=== PATIENT | female | born 1940 | race Caucasian/White ===

== ENCOUNTER 2016-09-17 22:59 | Observation (INO) | payer OTHER ==
[~2016-09-17] VITALS: Ht 170.2 cm; Wt 88.2 kg
[~2016-09-17 22:59] MED LIST: BIOT1TAB2 PO; CALC600T9 PO; ESTCR PV; LEVO100T7 PO; MULTTAB58 PO; POLYSOL8 OPB; RIVA1TAB4 PO; ROSU5TAB PO; SERT-234 PO; SOTA80TA PO; ZNTT/150 PO
--- NOTE | 2016-09-17 23:36 | EMERGENCY ROOM VISIT NOTE ---
History Report prepared by Cecily: Emily Stephens Under the Supervision of: Dr. Twan Kowalski M.D. First contact with patient: 23:18 Chief Complaint: IRREGULAR HEARTBEAT Stated Complaint: IRREGULAR HEART BEAT- AFIB History of Present Illness The patient is a 75 year old female who presents to the Emergency Room with complaints of a persistent irregular heartbeat. She reports she took her medication for atrial fibrillation around 2200 this evening. Approximately 10 minutes later, while watching TV, she felt her heart "fluttering" and states it feels similar to previous episodes of atrial fibrillation, which she has a history of. The patient reports she has needed chemical and electric cardioversion in the past. The last intervention was approximately 1 year ago, here at [facility]. She normally follows with Dr. Gonzalez of [facility]. The patient admits she has had a stressful past few weeks with caring for her developmentally impaired adult daughter and a "very busy day" today. She denies any recent ETOH use. She does admit to some current shakiness and nausea. She denies any chest pain or shortness of breath. Source of History: patient Onset: 2200 last night Position: chest Timing: other (persistent) Modifying Factors (Worsening): other (recent stress) Associated Symptoms: + nausea, + weakness, No SOB, No chest pain Review of Systems See HPI for pertinent positives & negatives. A total of 10 systems reviewed and were otherwise negative. Past Medical & Surgical Medical Problems: (1) Bronchiectasis (2) GERD (gastroesophageal reflux disease) (3) HLD (hyperlipidemia) (4) Hypothyroidism (5) Osteoarthritis (6) Osteoporosis (7) Palpitations (8) Paroxysmal a-fib Surgical Problems: (1) H/O arthroscopic knee surgery (2) H/O partial thyroidectomy (3) History of appendectomy (4) History of sinus surgery (5) History of tonsillectomy (6) History of tubal ligation (7) Hx of cholecystectomy Family History Patient reports no known family medical history. Social History Smoking Status: Never Smoker Alcohol Use: occasionally Drug Use: none Marital Status: Housing Status: lives with family Occupation Status: retired Current/Historical Medications Scheduled Biotin (Biotin), 5 MG PO 3XWK Levothyroxine Sodium (Levothyroxine Sodium), 100 MCG PO DAILY Probiotic Product (Probiotic), 1 TAB PO DAILY Ranitidine (Zantac), 150 MG PO BID Rivaroxaban (Xarelto), 20 MG PO DAILY Rosuvastatin Calcium (Crestor), 5 MG PO 3XWK Sertraline (Zoloft), 100 MG PO DAILY Sotalol Hcl (Sotalol Hcl), 80 MG PO BID Allergies Coded Allergies: Iodinated Diagnostic Agents (Verified Allergy, Severe, ANAPHYLAXIS, 09/17/16 ) Erythromycin (Verified Allergy, Intermediate, RASH, 09/17/16) Penicillins (Verified Allergy, Intermediate, RASH, 09/17/16) FROM CHILDHOOD Simvastatin (Verified Allergy, Intermediate, RASH, 09/17/16) Nystatin (Verified Allergy, Mild, RASH, 09/17/16) Moxifloxacin (Verified Adverse Reaction, Intermediate, HALUCINATIONS, ) Uncoded Allergies: TABARES 2 INHIBITOR (Allergy, Mild, RASH, 05/11/16) Physical Exam Vital Signs Date Time Temp Pulse Resp B/P Pulse Ox O2 Delivery O2 Flow Rate FiO2 09/18/16 00:10 74 20 132/65 96 Room Air 09/17/16 23:42 Room Air 09/17/16 23:42 96 Room Air 09/17/16 23:38 6 Room Air 09/17/16 23:24 128 09/17/16 23:08 36.4 138 19 120/75 96 Room Air Physical Exam GENERAL: Patient is a healthy-appearing well-nourished 75 year old female. HEAD: Normocephalic atraumatic EYES: Ocular movements intact pupils equal and react to light OROPHARYNX mucous membranes are moist no exudates present no erythema or edema present NECK: Supple no nuchal rigidity CHEST: Good equal expansion LUNGS: Clear and equal to auscultation CARDIAC: Normal S1 and S2 ABDOMEN: Soft nontender no guarding BACK: No CVA tenderness EXTREMITIES: No pain upon palpation normal muscle strength in all groups no clubbing cyanosis or edema NEURO: Patient is following commands is answering questions appropriately. Alert and oriented x3 Cranial Nerves 2-12 grossly intact Medical Decision & Procedures ER Provider Diagnostic Interpretation: This X-Ray was reviewed and interpreted by myself as we do not have a radiologist on staff overnight. CHEST X-RAY, 1 VIEW There is no evidence of pneumonia, congestion or pneumothorax. Laboratory Results 09/17/16 23:25 Red Blood Count 4.61, Mean Corpuscular Volume 90.0, Mean Corpuscular Hemoglobin 29.7, Mean Corpuscular Hemoglobin Concent 33.0, Mean Platelet Volume 10.5, Neutrophils (%) (Auto) 58.4, Lymphocytes (%) (Auto) 28.0, Monocytes (%) (Auto) 10.9, Eosinophils (%) (Auto) 2.0, Basophils (%) (Auto) 0.5, Neutrophils # (Auto ) 3.82, Lymphocytes # (Auto) 1.83, Monocytes # (Auto) 0.71, Eosinophils # (Auto ) 0.13, Basophils # (Auto) 0.03 09/17/16 23:25 Test 09/17/16 23:25 White Blood Count 6.53 K/uL (4.8-10.8) Red Blood Count 4.61 M/uL (4.2-5.4) Hemoglobin 13.7 g/dL (12.0-16.0) Hematocrit 41.5 % (37-47) Mean Corpuscular Volume 90.0 fL (80-100) Mean Corpuscular Hemoglobin 29.7 pg (25-34) Mean Corpuscular Hemoglobin Concent 33.0 g/dl (32-36) Platelet Count 166 K/uL (130-400) Mean Platelet Volume 10.5 fL (7.4-10.4) Neutrophils (%) (Auto) 58.4 % Lymphocytes (%) (Auto) 28.0 % Monocytes (%) (Auto) 10.9 % Eosinophils (%) (Auto) 2.0 % Basophils (%) (Auto) 0.5 % Neutrophils # (Auto) 3.82 K/uL (1.4-6.5) Lymphocytes # (Auto) 1.83 K/uL (1.2-3.4) Monocytes # (Auto) 0.71 K/uL (0.11-0.59) Eosinophils # (Auto) 0.13 K/uL (0-0.5) Basophils # (Auto) 0.03 K/uL (0-0.2) RDW Standard Deviation 47.9 fL (36.4-46.3) RDW Coefficient of Variation 14.4 % (11.5-14.5) Immature Granulocyte % (Auto) 0.2 % Immature Granulocyte # (Auto) 0.01 K/uL (0.00-0.02) Prothrombin Time 13.9 SECONDS (9.0-12.0) Prothromb Time International Ratio 1.3 (0.9-1.1) Anion Gap 11.0 mmol/L (3-11) Est Creatinine Clear Calc Drug Dose 57.5 ml/min Estimated GFR () 81.8 Estimated GFR (Non- 70.5 BUN/Creatinine Ratio 21.9 (10-20) Calcium Level 9.4 mg/dl (8.5-10.1) Magnesium Level 2.1 mg/dl (1.8-2.4) Total Bilirubin 0.2 mg/dl (0.2-1) Direct Bilirubin < 0.1 mg/dl (0-0.2) Aspartate Amino Transf (AST/SGOT) 14 U/L (15-37) Alanine Aminotransferase (ALT/SGPT) 17 U/L (12-78) Alkaline Phosphatase 61 U/L (45-117) Total Creatine Kinase 100 U/L (26-192) Creatine Kinase MB 4.3 ng/ml (0.5-3.6) Creatine Kinase MB Ratio 4.3 (0-3.0) Troponin I < 0.015 ng/ml (0-0.045) Total Protein 7.2 gm/dl (6.4-8.2) Albumin 3.5 gm/dl (3.4-5.0) Lipase 224 U/L (73-393) Thyroid Stimulating Hormone (TSH) 4.040 uIu/ml (0.300-4.500) Labs reviewed by ED physician. Medications Administered Medications (Trade) Dose Ordered Sig/Amauri Route Start Time Stop Time Status Last Admin Dose Admin Diltiazem HCl 18 mg 18 mg NOW STAT IV 09/17/16 23:38 09/17/16 23:41 DC 09/17/16 23:51 18 MG Sodium Chloride (Nss 500ml) 500 ml @ 999 mls/hr Q31M STAT IV 09/17/16 23:38 09/18/16 00:08 DC 09/17/16 23:51 999 MLS/HR Potassium Chloride (Klor-Con M10) 40 meq NOW STAT PO 09/18/16 00:40 09/18/16 00:45 DC 09/18/16 01:01 40 MEQ ECG Indication: palpitations Rate (beats per minute): 119 Rhythm: atrial fibrillation (atrial fibrillation with RVR) Findings: no acute ischemic change Change: Repeat EKG on 09/18/2016: Atrial fibrillation with PVC's, rate of 93, no ischemia. ED Course 2331: Past medical records reviewed. The patient was evaluated in room B7. A complete history and physical examination was performed. 2338: NSS 500 ml @ 999 mls/hr IV, Cardizem 25 mg IV, Cardizem 18 mg IV. 0036: I discussed the patients case with Raya Dinh. The patient will be further evaluated. Medical Decision Prior records/ancillary studies reviewed. Triage Nursing notes reviewed. The patient's history was concerning for palpitations. Differential diagnosis: Etiologies such as premature contractions, electrolyte abnormality, cardiac dysrhythmia, thyroid dysfunction, pulmonary embolism, infection, gastrointestinal, as well as others were entertained. This is a 75-year-old female who presents emergency department complaining of A. fib with RVR. The patient has a history of atrial fibrillation past however she is normal sinus rhythm. In addition the patient is normally on eliquis. She was given Cardizem boluses 2 in the emergency department however the patient's heart rate remains very labile. She is bouncing between 60 and 120. Based on these findings I discussed the case with the hospitalist service who agreed to admit the patient. Patient was in agreement with the treatment plan. Consults Time Called: 003 Consulting Physician: Raya Dinh Returned Call: 003 I discussed the patients case with Raya Dinh. The patient will be further evaluated. Impression Primary Impression: Atrial fibrillation with RVR Scribe Attestation The scribe's documentation has been prepared under my direction and personally reviewed by me in its entirety. I confirm that the note above accurately reflects all work, treatment, procedures, and medical decision making performed by me. Departure Information Dispostion Being Evaluated By Hospitalist Referrals Trang Allan D.O. (PCP) Patient Instructions My [facility]
[2016-09-17] MEDS: ASPIRIN 81 MG CHEW PO STA ×2 (23:38→23:50)
[2016-09-17] MEDS ORDERED: DILTIAZEM HCL 5 MG/ML 5 ML VIAL IV STA ×2 (23:38)
[2016-09-17] MEDS ORDERED: SODIUM CHLORIDE 0.9% 500ML 500 ML IV STA (23:38)
[2016-09-17] MEDS ORDERED: PROB1TAB16 PO (23:40)
[2016-09-17 23:50] LABS: BASO % 0.5 %; BASO ABS # 0.03 K/uL (0-0.2); COMPLETE YES; HEMATOCRIT 41.5 % (37-47); IG% 0.2 %; LYMPH ABS # 1.83 K/uL (1.2-3.4); MEAN CORPUSCULAR HEMOGLOBIN 29.7 pg (25-34); MEAN PLATELET VOLUME 10.5 fL (7.4-10.4); MONO % 10.9 %; NEUT % 58.4 %; PLATELET COUNT 166 K/uL (130-400); RED BLOOD COUNT 4.61 M/uL (4.2-5.4); WHITE BLOOD COUNT 6.53 K/uL (4.8-10.8)
[2016-09-17 23:55] LABS: INR 1.3 (0.9-1.1); PROTHROMBIN TIME (PATIENT) 13.9 SECONDS (9.0-12.0)
[2016-09-18] VITALS (17 sets, daily range): BP systolic 97–143; BP diastolic 58–91; PULSE 45–116; TEMP 36.4–36.7; O2SAT 95–97; Ht 170.2 cm; Wt 88.2 kg
[2016-09-18 00:07] LABS: ALT/SGPT 17 U/L (12-78); BLOOD UREA NITROGEN 18 mg/dl (7-18); BUN/CREATININE RATIO 21.9 (10-20); CALCIUM 9.4 mg/dl (8.5-10.1); CARBON DIOXIDE 24 mmol/L (21-32); CHLORIDE 108 mmol/L (98-107); CREATININE 0.81 mg/dl (0.60-1.20); GLUCOSE 120 mg/dl (70-99); POTASSIUM 3.7 mmol/L (3.5-5.1); SODIUM 143 mmol/L (136-145)
[2016-09-18 00:13] LABS: ALKALINE PHOSPHATASE 61 U/L (45-117); AST/SGOT 14 U/L (15-37); CKMB/CK RATIO 4.3 (0-3.0)
[2016-09-18] MEDS ORDERED: POTASSIUM CHLORIDE 10 MEQ TABCR PO STA (00:40)
[2016-09-18 01:12] LABS: MAGNESIUM 2.1 mg/dl (1.8-2.4)
[2016-09-18] MEDS ORDERED: TRAMADOL HCL 50 MG TAB PO PRN (01:30)
[2016-09-18] MEDS ORDERED: LORAZEPAM 2 MG/ML 1 ML VIAL IV PRN (01:30)
[2016-09-18] MEDS ORDERED: ACETAMINOPHEN 325 MG TAB PO PRN (01:30)
[2016-09-18] MEDS ORDERED: ONDANSETRON INJ 2 MG/ML 2 ML VIAL IV PRN (01:30)
[2016-09-18] MEDS ORDERED: NITROGLYCERIN 0.4 MG SL PER TAB CHARGE SL PRN (01:30)
[2016-09-18] MEDS ORDERED: PROMETHAZINE HCL INJ 12.5 MG in SODIUM CHLORIDE 0.9% 50ML 50 ML IV PRN (01:30)
[2016-09-18] MEDS ORDERED: LACTATED RINGER'S 1000ML 1,000 ML IV SCH (02:00)
[2016-09-18] MEDS ORDERED: SOTALOL HCL 80 MG TAB PO STA (02:03)
[2016-09-18] MEDS ORDERED: IV FLUIDS COMPLETED PRN (02:15)
--- NOTE | 2016-09-18 05:45 | HISTORY & PHYSICAL EXAMINATION ---
DATE OF ADMISSION: 09/18/2016 PRIMARY CARE PHYSICIAN: Dr. Allan. CHIEF COMPLAINT: Palpitations. HISTORY OF PRESENT ILLNESS: Medical history significant for atrial fibrillation status post cardioversion, bronchiectasis, hyperlipidemia, reflux, postop hypothyroidism. Recent confinement last 12/2015 for AFib with RVR sp electrical cardioversion. Last night around 10PM, patient noted her heart fluttering while watching television. She took had just taken her nighttime Sotalol tab 10 minutes prior to palpitations - a few hrs later than usual. No chest pain, no shortness of breath, although her breathing was someehat "shallow." Some personal stress with her an adult daughter currently incarcerated in [place]. At the Emergency Room, the patient noted to be in rapid AFib, heart rate in the 140s. Patient received 2 Cardizem boluses. Heart rate alternating subsequently between 74 to 110. MEDICAL HISTORY: As above. No inducible ischemia on last years stress echo in preparation for knee surgery. EF 77% TTE December of 2015 showed LVEH, mild EF of 50% to 60%. SURGERIES: She has had knee surgery, thyroidectomy cholecystectomy, appendectomy, sinus surgery, tonsillectomy, tubal ligation. HOME MEDICATIONS: Include sotalol, Xarelto, Zoloft, levothyroxine, probiotic, Crestor, Zantac. ALLERGIES: ERYTHROMYCIN, STATIN, SIMVASTATIN, MOXIFLOXACIN, PENICILLIN, DYE. FAMILY HISTORY: Heart disease. 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 REVIEW OF SYSTEMS: As per HPI, all other ROS negative PHYSICAL EXAMINATION: VITAL SIGNS: Blood pressure was noted to be 120/75, pulse rate 138 and later 99, RR 26, sats 97 on room air. GENERAL: Noted to be slightly anxious, no respiratory distress. SKIN: Normal color. HEENT: [place] palpebral conjunctivae. Dry mucosa. NECK: Short neck, healed incisional scar lower anterior neck. CHEST: Clear to auscultation. HEART: Irregular. ABDOMEN: Some distention, nontender. EXTREMITIES: No edema. no tenderness NEUROLOGIC: No gross focality. LABS: Hemoglobin was noted to be 12.7, Sodium 140, potassium 3.7, chloride 108, CO2 of 27, BUN 18, creatinine 0.6, glucose noted to be 120. trop 0 Chest x-ray showed atelectasis EKG showed rate AFib, RVR with some flattening in the inferior leads, poor R-wave progression, QTC was 440. ASSESSMENT: 1. Palpitations secondary to recurrent atrial fibrillation hx cardioversion on Xarelto for anticoag erratic rate (80-110s) despite intake of nighttime Sotalol and additional of Cardizem boluses given in the ER. 2. Hypothyroidism, euthyroid as of today's TSH PLAN: Observation PCU. Additional potassium to maintain serum potassium greater than 4. Sotalol 40mg extra dose now continue maintenance Sotalol 80 mg BID Cardio consult RE recurrent AF (px known to Dr. Gonzalez) Deep venous thrombosis prophylaxis, Xarelto. Full code. MTDD
[2016-09-18] MEDS: LEVOTHYROXINE 100 MCG TAB PO SCH (06:43)
[2016-09-18 07:18] LABS: BASO % 0.4 %; BASO ABS # 0.02 K/uL (0-0.2); COMPLETE YES; EOS % 1.8 %; HEMATOCRIT 40.2 % (37-47); IG% 0.2 %; LYMPH % 30.2 %; LYMPH ABS # 1.71 K/uL (1.2-3.4); MEAN CELL VOLUME 89.7 fL (80-100); MEAN CORPUSCULAR HEMOGLOBIN 29.5 pg (25-34); MEAN CORPUSCULAR HGB CONC 32.8 g/dl (32-36); MEAN PLATELET VOLUME 10.1 fL (7.4-10.4); MONO % 9.3 %; NEUT % 58.1 %; PLATELET COUNT 156 K/uL (130-400); RED BLOOD COUNT 4.48 M/uL (4.2-5.4); WHITE BLOOD COUNT 5.67 K/uL (4.8-10.8)
[2016-09-18] MEDS: SERTRALINE HCL 100 MG TAB PO SCH (07:53)
[2016-09-18] MEDS: SOTALOL HCL 80 MG TAB PO SCH ×2 (07:53→22:09)
[2016-09-18] MEDS: RANITIDINE HCL 150 MG TAB PO SCH ×2 (07:53→22:03)
[2016-09-18 07:56] LABS: BLOOD UREA NITROGEN 17 mg/dl (7-18); BUN/CREATININE RATIO 22.2 (10-20); CALCIUM 8.9 mg/dl (8.5-10.1); CARBON DIOXIDE 25 mmol/L (21-32); CHLORIDE 112 mmol/L (98-107); CREATININE 0.76 mg/dl (0.60-1.20); GLUCOSE 102 mg/dl (70-99); POTASSIUM 4.4 mmol/L (3.5-5.1); SODIUM 145 mmol/L (136-145)
--- NOTE | 2016-09-18 08:01 | DIAGNOSTIC IMAGING REPORT ---
CHEST ONE VIEW PORTABLE HISTORY: Atypical CHEST PAIN COMPARISON: Chest 05/10/2016. FINDINGS: Bibasilar linear densities persist and favor scarring or atelectasis. Otherwise, the lungs are clear. No pleural effusions. No pneumothorax. The heart is top normal in size. No evidence for pulmonary edema. IMPRESSION: No significant change compared to the prior study. No acute process. Electronically signed by: Chin Chu M.D. 09/18/2016 8:00 AM Dictated Date/Time: 09/18/2016 7:59 AM
[2016-09-18] MEDS ORDERED: NURSING VERBAL MED ORDER ONE ×2 (08:15→15:45)
[2016-09-18] MEDS ORDERED: ROSUVASTATIN CALCIUM 10 MG TAB PO SCH (09:00)
[2016-09-18] MEDS ORDERED: RIVAROXABAN 10 MG TAB PO SCH ×2 (09:00→17:00)
--- NOTE | 2016-09-18 10:09 | Cardiology Consultation ---
Cardiology Consultation Date of Consultation: Sep 18, 2016 Requesting Physician: Denilson Attending Manager Developmental: Ben (Garry Ortiz PA-C) History of Present Illness Patient is a 75 year old female who is being seen today at the request of Dr. Oreilly. Reason for consultation is palpitations. Ms. Penn notes have a history of paroxysmal atrial fibrillation dating back to the 1979's. She notes being treated initially with Atenolol followed by both Atenolol and Verapamil. She describes missing Atenolol in September 2014 requiring hospitalization and chemical cardioversion on October 12, 2014 in [place]. In December 2015 she was admitted to [facility] with symptomatic paroxysmal atrial fibrillation with a RVR and was started on Sotalol 80 mg twice per day. After being loaded with sotalol she underwent direct current cardioversion with a [address] Stewart who noted that she was difficult to around post cardioversion and also hypotensive requiring a 500 mL fluid bolus. She notes possible short paroxysms of PAF in April 2016 in association with missing sotalol, presenting to the [facility] ER after spontaneous resolution prior to evaluation - monitoring demonstrating atrial ectopy only. The patient describes have a very busy day yesterday, not eating as per her norm , taking Sotalol later than usual. She took the evening dose of Sotalol at 22:15 , developing tachypalpitations at 22:25. She presented to the ER last night where she was found to be in atrial fibrillation with a rapid ventricular response. She was given two boluses of Cardizem with some improvement in heart rate. This morning she remains in atrial fibrillation varying between 80 bpm at rest and 150 bpm with activity. She notes that her heart rate is "not as dramatic" as it was last night though she remains symptomatic. She notes increased stressors of late; her autistic daughter was recently arrested in [facility] , transferred to [place], [place] where she had an outstanding arrant. She may have missed one dose of Xarelto 7-10 days ago. (Garry Ortiz PA-C) History Past Medical/Surgical History: Paroxysmal atrial fibrillation CHADS2 Score: 07/19. CHADS-VASc Score of 4 points. Anticoagulation with Xarelto Bronchiectasis Hyperlipidemia Hypothyroidism GERD History of pancreatitis due to bilary obstruction Osteoarthritis Osteoporosis Arthroscopic knee surgery Status post left knee replacement in [place], 05/16/2016 Partial thyroidectomy Appendectomy Sinus surgery Tonsillectomy Tubal ligation Cholecystectomy Family History: Mother with CHF just short of her 93rd birthday. Father survived a AAA repair, passing 9 years later with an NC. Brother had rheumatic fever as a child, also with atrial fibrillation. Two paternal uncles with CAD. Social History: Lifelong nonsmoker. History of moderate alcohol, abstaning since the fall. No illegal drug use. 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 (Garry Ortiz PA-C) Review Of Systems General: No fevers, chills, or night sweats HEENT: Glasses. No headache. Concussion in 2014, post mechanical fall. . Cardiovascular: See above. No near syncope or syncope. Pulmonary: No cough. No hemoptysis. , sputum, and excessive snoring. Gastrointestinal: GERD. Eats small meals throughout the day. No vomiting. No diarrhea. No melena or hematochezia. Skin: No rash. Musculoskeletal: Arthritis. Knee discomfort. Neurological: No history of TIA, CVA, or seizures Complete review of systems is as stated above, negative, or noncontributory. (Garry Ortiz PA-C) Allergies Coded Allergies: Iodinated Diagnostic Agents (Verified Allergy, Severe, ANAPHYLAXIS, 09/17/16 ) Erythromycin (Verified Allergy, Intermediate, RASH, 09/17/16) Penicillins (Verified Allergy, Intermediate, RASH, 09/17/16) FROM CHILDHOOD Simvastatin (Verified Allergy, Intermediate, RASH, 09/17/16) Nystatin (Verified Allergy, Mild, RASH, 09/17/16) Moxifloxacin (Verified Adverse Reaction, Intermediate, HALUCINATIONS, ) Uncoded Allergies: TABARES 2 INHIBITOR (Allergy, Mild, RASH, 05/11/16) Medications Reported Home Medications Medications Dose Route/Sig Max Daily Dose Days Date Category Dose Instructions Probiotic (Probiotic Product) 1 Tab Tab 1 Tab PO DAILY 09/17/16 Reported Sotalol Hcl 80 Mg Tab 80 Mg PO BID 05/11/16 Reported Biotin 5 Mg Tab 5 Mg PO 3XWK 12/15/15 Reported Xarelto (Rivaroxaban) 20 Mg Tab 20 Mg PO DAILY 12/15/15 Reported Zoloft (Sertraline HCl) 100 Mg Tab 100 Mg PO DAILY 90 11/27/15 Reported Zantac (Ranitidine HCl) 150 Mg Tab 150 Mg PO BID 30 11/27/15 Reported Levothyroxine Sodium 100 Mcg Tab 100 Mcg PO DAILY 30 11/27/15 Reported Crestor (Rosuvastatin Calcium) 5 Mg Tab 5 Mg PO 3XWK 11/27/15 Reported EVERY FRIDAY/FRIDAY/FRIDAY (Garry Ortiz PA-C) Physical Exam Vital Signs (Last 8hrs): Last 8 Hrs Date Time Temp Pulse Resp B/P Pulse Ox O2 Delivery O2 Flow Rate FiO2 09/18/16 08:00 Room Air 09/18/16 07:44 36.7 108 18 119/79 96 Room Air 09/18/16 04:16 36.5 74 18 120/73 96 Room Air 09/18/16 04:00 Room Air 09/18/16 02:04 36.6 96 18 143/82 Room Air 96.0 09/18/16 01:23 99 20 116/75 97 Room Air General Appearance: Alert and Oriented x3. NAD. Head: Normocephalic Atraumatic. Eyes: PER, EOMI, conjunctiva and sclera clear Neck: Supple. No carotid bruits noted. No JVD. No HJD. Respiratory: Breath sounds clear to auscultation bilaterally. No w/r/r. Cardiovascular: Irregularly irregular ~110 bpm. No murmurs. No rubs. PMI is not displaced. Abdomen: +BS. Soft. Nontender. Extremities: No edema, no clubbing or cyanosis. Distal pulses 1/4 bilaterally. Neuro: No focal deficits. Psychiatric: Normal affect. (Garry Ortiz PA-C) Data Last 24 Hours Test 09/17/16 23:25 09/18/16 06:53 White Blood Count 6.53 K/uL 5.67 K/uL Red Blood Count 4.61 M/uL 4.48 M/uL Hemoglobin 13.7 g/dL 13.2 g/dL Hematocrit 41.5 % 40.2 % Mean Corpuscular Volume 90.0 fL 89.7 fL Mean Corpuscular Hemoglobin 29.7 pg 29.5 pg Mean Corpuscular Hemoglobin Concent 33.0 g/dl 32.8 g/dl Platelet Count 166 K/uL 156 K/uL Mean Platelet Volume 10.5 fL 10.1 fL Neutrophils (%) (Auto) 58.4 % 58.1 % Lymphocytes (%) (Auto) 28.0 % 30.2 % Monocytes (%) (Auto) 10.9 % 9.3 % Eosinophils (%) (Auto) 2.0 % 1.8 % Basophils (%) (Auto) 0.5 % 0.4 % Neutrophils # (Auto) 3.82 K/uL 3.30 K/uL Lymphocytes # (Auto) 1.83 K/uL 1.71 K/uL Monocytes # (Auto) 0.71 K/uL 0.53 K/uL Eosinophils # (Auto) 0.13 K/uL 0.10 K/uL Basophils # (Auto) 0.03 K/uL 0.02 K/uL RDW Standard Deviation 47.9 fL 47.6 fL RDW Coefficient of Variation 14.4 % 14.5 % Immature Granulocyte % (Auto) 0.2 % 0.2 % Immature Granulocyte # (Auto) 0.01 K/uL 0.01 K/uL Prothrombin Time 13.9 SECONDS Prothromb Time International Ratio 1.3 Sodium Level 143 mmol/L 145 mmol/L Potassium Level 3.7 mmol/L 4.4 mmol/L Chloride Level 108 mmol/L 112 mmol/L Carbon Dioxide Level 24 mmol/L 25 mmol/L Anion Gap 11.0 mmol/L 8.0 mmol/L Blood Urea Nitrogen 18 mg/dl 17 mg/dl Creatinine 0.81 mg/dl 0.76 mg/dl Est Creatinine Clear Calc Drug Dose 57.5 ml/min 71.8 ml/min Estimated GFR () 81.8 88.3 Estimated GFR (Non- 70.5 76.2 BUN/Creatinine Ratio 21.9 22.2 Random Glucose 120 mg/dl 102 mg/dl Calcium Level 9.4 mg/dl 8.9 mg/dl Magnesium Level 2.1 mg/dl Total Bilirubin 0.2 mg/dl Direct Bilirubin < 0.1 mg/dl Aspartate Amino Transf (AST/SGOT) 14 U/L Alanine Aminotransferase (ALT/SGPT) 17 U/L Alkaline Phosphatase 61 U/L Total Creatine Kinase 100 U/L Creatine Kinase MB 4.3 ng/ml Creatine Kinase MB Ratio 4.3 Troponin I < 0.015 ng/ml < 0.015 ng/ml Total Protein 7.2 gm/dl Albumin 3.5 gm/dl Lipase 224 U/L Thyroid Stimulating Hormone (TSH) 4.040 uIu/ml December 2015 Holter: Dominant rhythm - sinus. Average heart rate 62 bpm. Minimum heart rate 46 bpm. Maximum heart rate 108 bpm. The rhythm throughout the monitoring period was sinus. Occasional PAC's including multiple short salvos of nonsustained supraventricular tachycardia. Patient's symptoms of palpitations correlated with nonsustained supraventricular tachycardia. No sustained arrhythmias. April 03, 2016 Lexiscan Interpretation Summary (as per Dr. Gonzalez): Lexiscan nuclear cardiac stress test negative for ischemia. Gated SPECT images reveals normal myocardial thickening and wall motion. The LV ejection fraction is calculated at 77% EKG dated and timed 17-SEP-2016 @ 23:17:54: Atrial fibrillation with rapid ventricular response ([address] abnormality. QTc: 444 ms. EKG dated and timed 18-SEP-2016 @ 00:33:03: Atrial fibrillation with premature ventricular or aberrantly conducted complexes (93 bpm). Inverted T waves have replaced nonspecific T wave abnormality in Inferior leads. QTc: 472 ms. EKG dated and timed 18-SEP-2016 @ 06:15:44: Atrial fibrillation at 98 bpm. QTc 444 ms. Telemerty: Atrial fibrillation ranging from ~80 bpm to ~150 bpm. No significant pauses. No periods of sinus. Admission CXR: No significant change compared to the prior study. No acute process. As per Dr. Chu. (Garry Ortiz PA-C) Assessment & Plan Recurrent (onset ~22:25 on 09/17/2016) symptomatic paroxysmal atrial fibrillation with a rapid ventricular response. Chronic anticoagulation with Xarelto, possibly missing one dose 7-10 days ago. RECOMMENDATIONS/PLAN: Resting echocardiogram to assess LV function, left atrial size. NPO for possible direct current cardioversion Continue Sotalol 80 mg every 12 hours (resting/baseline bradycardia appears to preclude titration) Continue Xarelto, 20 mg once daily with the evening meal. Maintain electrolytes (Garry Ortiz PA-C) Patient seen and examined, agree with assessment and plan. Patient with paroxysmal atrial fibrillation managed with rhythm control with symptomatic relapse into atrial fibrillation with RVR. Plan--Synchronized electrical cardioversion today. Mark Contreras MD (Mark Contreras M.D.)
--- NOTE | 2016-09-18 10:40 | Progress Note ---
Internal Med Progress Note Date of Service: Sep 18, 2016. Provider Documentation: SUBJECTIVE: Patient denies any palpitations, SOB, Chest pain No recent illness. No nausea, vomiting, cough, fever, chills. Did not miss any medication doses. Personal stressors + OBJECTIVE: Vital Signs-as noted below Exam: General-AAOX3, no distress Neck-Supple Lungs-AEBE, no wheezing, crackles Heart-Irregularly irregular rhythm, No murmurs Extremities-No edema Lab data as noted below. ASSESSMENT & PLAN: ASSESSMENT AND PLAN : RECURRENT, SYMPTOMATIC ATRIAL FIBRILLATION WITH RVR : -Tele- range 110-130s -On sotalol 80 mg PO BID. Received an extra dose of sotalol 40 mg -Discussed with cardiology, may need cardioversion. NPO today and on anticoagulation xarelto -Trop x 2 negative, Tele monitor reviewed HYPOTHYROIDISM -Euthyroids as of today's TSH DVT PROPHYLAXIS Xarelto FULL CODE DISPOSITION Continue with telemetry Vital Signs: Date Time Temp Pulse Resp B/P Pulse Ox O2 Delivery O2 Flow Rate FiO2 09/18/16 08:00 Room Air 09/18/16 07:44 36.7 108 18 119/79 96 Room Air 09/18/16 04:16 36.5 74 18 120/73 96 Room Air 09/18/16 04:00 Room Air 09/18/16 02:04 36.6 96 18 143/82 Room Air 96.0 09/18/16 01:23 99 20 116/75 97 Room Air 09/18/16 00:10 74 20 132/65 96 Room Air 09/17/16 23:42 Room Air 09/17/16 23:42 96 Room Air 09/17/16 23:38 6 Room Air 09/17/16 23:24 128 09/17/16 23:08 36.4 138 19 120/75 96 Room Air Lab Results: Results Past 24 Hours Test 09/17/16 23:25 09/18/16 06:53 Range/Units White Blood Count 6.53 5.67 4.8-10.8 K/uL Red Blood Count 4.61 4.48 4.2-5.4 M/uL Hemoglobin 13.7 13.2 12.0-16.0 g/dL Hematocrit 41.5 40.2 37-47 % Mean Corpuscular Volume 90.0 89.7 80-100 fL Mean Corpuscular Hemoglobin 29.7 29.5 25-34 pg Mean Corpuscular Hemoglobin Concent 33.0 32.8 32-36 g/dl Platelet Count 166 156 130-400 K/uL Mean Platelet Volume 10.5 10.1 7.4-10.4 fL Neutrophils (%) (Auto) 58.4 58.1 % Lymphocytes (%) (Auto) 28.0 30.2 % Monocytes (%) (Auto) 10.9 9.3 % Eosinophils (%) (Auto) 2.0 1.8 % Basophils (%) (Auto) 0.5 0.4 % Neutrophils # (Auto) 3.82 3.30 1.4-6.5 K/uL Lymphocytes # (Auto) 1.83 1.71 1.2-3.4 K/uL Monocytes # (Auto) 0.71 0.53 0.11-0.59 K/uL Eosinophils # (Auto) 0.13 0.10 0-0.5 K/uL Basophils # (Auto) 0.03 0.02 0-0.2 K/uL RDW Standard Deviation 47.9 47.6 36.4-46.3 fL RDW Coefficient of Variation 14.4 14.5 11.5-14.5 % Immature Granulocyte % (Auto) 0.2 0.2 % Immature Granulocyte # (Auto) 0.01 0.01 0.00-0.02 K/uL Prothrombin Time 13.9 9.0-12.0 SECONDS Prothromb Time International Ratio 1.3 0.9-1.1 Sodium Level 143 145 136-145 mmol/L Potassium Level 3.7 4.4 3.5-5.1 mmol/L Chloride Level 108 112 98-107 mmol/L Carbon Dioxide Level 24 25 21-32 mmol/L Anion Gap 11.0 8.0 3-11 mmol/L Blood Urea Nitrogen 18 17 7-18 mg/dl Creatinine 0.81 0.76 0.60-1.20 mg/dl Est Creatinine Clear Calc Drug Dose 57.5 71.8 ml/min Estimated GFR () 81.8 88.3 Estimated GFR (Non- 70.5 76.2 BUN/Creatinine Ratio 21.9 22.2 10-20 Random Glucose 120 102 70-99 mg/dl Calcium Level 9.4 8.9 8.5-10.1 mg/dl Magnesium Level 2.1 1.8-2.4 mg/dl Total Bilirubin 0.2 0.2-1 mg/dl Direct Bilirubin < 0.1 0-0.2 mg/dl Aspartate Amino Transf (AST/SGOT) 14 15-37 U/L Alanine Aminotransferase (ALT/SGPT) 17 12-78 U/L Alkaline Phosphatase 61 45-117 U/L Total Creatine Kinase 100 26-192 U/L Creatine Kinase MB 4.3 0.5-3.6 ng/ml Creatine Kinase MB Ratio 4.3 0-3.0 Troponin I < 0.015 < 0.015 0-0.045 ng/ml Total Protein 7.2 6.4-8.2 gm/dl Albumin 3.5 3.4-5.0 gm/dl Lipase 224 73-393 U/L Thyroid Stimulating Hormone (TSH) 4.040 0.300-4.500 uIu/ml
[2016-09-18] MEDS ORDERED: LIDOCAINE HCL 2% 2 ML VIAL (20MG/ML) ONE (12:17)
[2016-09-18] MEDS ORDERED: PROPOFOL IV EMULSION 10 MG/ML 20 ML VIAL IV ONE (12:17)
--- NOTE | 2016-09-18 12:21 | Anesthesiology Progress Note ---
Anesthesia Post Op Note Date & Time Sep 18, 2016 at 12:19 Vital Signs Pain Intensity: 0.0 Vital Signs Past 12 Hours Date Time Temp Pulse Resp B/P Pulse Ox O2 Delivery O2 Flow Rate FiO2 09/18/16 12:15 18 108/80 96 Nasal Cannula 2 09/18/16 12:00 Room Air 09/18/16 11:25 36.7 116 18 128/86 96 Room Air 09/18/16 08:00 Room Air 09/18/16 07:44 36.7 108 18 119/79 96 Room Air 09/18/16 04:16 36.5 74 18 120/73 96 Room Air 09/18/16 04:00 Room Air 09/18/16 02:04 36.6 96 18 143/82 Room Air 96.0 09/18/16 01:23 99 20 116/75 97 Room Air Notes Mental Status: alert / awake / arousable, participated in evaluation Pt Amnestic to Procedure: Yes Nausea / Vomiting: adequately controlled Pain: adequately controlled Airway Patency, RR, SpO2: stable & adequate BP & HR: stable & adequate Hydration State: stable & adequate Anesthetic Complications: no major complications apparent Pt had cardioversion under IV sedation for a. fib w/ RVR. Her anesthetic course was uneventful. She's now awake w/ stable vitals.
--- NOTE | 2016-09-18 12:23 | Cardiology Procedure Brief Nt ---
Preliminary Cardiology Note Procedure Date Sep 18, 2016. Pre-Procedure Diagnosis Atrial fibrillation with rapid ventricular response Post-Procedure Diagnosis Successful synchronized electrical cardioversion Procedure(s) Performed Successful synchronized electrical cardioversion [employer] Medical Record Specialist(s) None Estimated Blood Loss None Preliminary Findings Successful synchronized electrical cardioversion was performed using a single 150 J biphasic countershock. Patient aroused post procedure having tolerated well Recommendations Continued medical management Fluids (cc crystalloids) 50 Specimens None Anesthesia Per DR Newby,Anesthesia consult Complication(s) None Disposition PCU
--- NOTE | 2016-09-18 13:39 | CARDIOVERSION ---
DATE OF OPERATION: 09/18/2016 SYNCHRONIZED ELECTRICAL CARDIOVERSION PRIMARY CARE PHYSICIAN: Dr. Allan. INDICATIONS: Atrial fibrillation with rapid ventricular response, history of past paroxysmal atrial fibrillation. BRIEF HISTORY: The patient is a 75-year-old female with history of paroxysmal atrial fibrillation controlled in sinus rhythm with sotalol and appropriately anticoagulated assisted with Xarelto who lapsed into atrial fibrillation with sustained elevated ventricular response rate last evening. She is referred now for synchronized electrical cardioversion as an option of management. PROCEDURE: After the procedure and risks were explained in detail to the patient informed consent was obtained. The patient was brought to the cardiac catheterization lab where she was sedated via anesthesia consult. A single synchronized 150 joule biphasic shock was administered with successful conversion to sinus rhythm. Of note post cardioversion the patient was demonstrating 2 different atrial rhythms with low atrial focus rate in the 50s and high atrial focus with rates in the 80s. After further observation patient remained in sinus rhythm rate 74. No acute ST segment changes. Post procedure patient aroused having tolerated well. PLAN: Continued medical management with observation x2-3 hours additional today. I attest to the content of the Intraoperative Record and any orders documented therein. Any exceptio ns are noted below.
--- NOTE | 2016-09-18 17:45 | ECHOCARDIOGRAM REPORT ---
*NOTICE TO RECEIVING REPUBLICAN AGENCY This information is strictly Confidential and protected under [place] law. [place] law prohibits you from making any further disclosure of this information unless further disclosure is expressly permitted by the written consent of the person to whom it pertains or is authorized by law. A general authorization for the release of medical or other information is not sufficient for this purpose. Hospital accepts no responsibility if the information is made available to any other person, INCLUDING THE PATIENT. Interpretation Summary * Name: DAVIDE BARRIOS Study Date: 09/18/2016 02:20 PM BP: 97/64 mmHg * Patient Location: C.2T\S\S243\S\1 HR: 78 * : 1940 (M/d/yyyy) Gender: Female Height: 67 in * Age: 75 yrs Ethnicity: [place] Weight: 194 lb * Ordering Physician: Garry Ortiz * Referring Physician: Self, Referred * Performed By: Ha Palmer RCS * * Reason For Study: A-FIB * BSA: 2.0 m2 * -- Conclusions -- * The left ventricle is normal in size. * There is borderline concentric left ventricular hypertrophy. * The left ventricular wall motion is normal. * Left ventricular systolic function is normal. * Ejection Fraction = 65-70%. * The left atrium is moderately dilated. * There is trace mitral 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. * There is mild tricuspid 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. Procedure Details * A complete two-dimensional transthoracic echocardiogram was performed (2D, M-mode, Doppler and color flow Doppler). Left Ventricle * The left ventricle is normal in size. * There is borderline concentric left ventricular hypertrophy. * Ejection Fraction = 65-70%. * Left ventricular systolic function is normal. * The left ventricular wall motion is normal. Right Ventricle * The right ventricle is normal in size and function. Atria * The left atrium is moderately dilated. * Right atrial size is normal. * No ASD detected; PFO is not assessed. Mitral Valve * The mitral valve anatomy is normal. * There is no mitral valve stenosis. * There is trace mitral 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. Tricuspid Valve * The tricuspid valve anatomy is normal. * There is no tricuspid stenosis. * There is mild tricuspid 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. * Doppler findings do not suggest pulmonary hypertension. Aortic Valve * The aortic valve is trileaflet. * No hemodynamically significant valvular aortic stenosis. * No aortic 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 is present. Pulmonic Valve * The pulmonic valve is not well visualized. Great Vessels * The aortic root is normal size. Pericardium/Pleural * There is no pericardial effusion. Great Vessels * Normal inferior vena cava diameter and respiratory variation suggests normal central venous pressure. MMode 2D Measurements and Calculations IVSd 0.97 cm IVSs 1.2 cm LVIDd 4.0 cm LVIDs 2.3 cm LVPWd 0.90 cm LVPWs 1.2 cm IVS/LVPW 1.1 FS 43.1 % EDV(Teich) 71.2 ml ESV(Teich) 18.0 ml EF(Teich) 74.8 % EDV(cubed) 65.4 ml ESV(cubed) 12.0 ml EF(cubed) 81.6 % % IVS thick 21.9 % % LVPW thick 35.2 % LV mass(C)d 117.4 grams LV mass(C)dI 58.8 grams/m\S\2 LV mass(C)s 76.8 grams LV mass(C)sI 38.5 grams/m\S\2 CO(Teich) 2.7 l/min CI(Teich) 1.3 l/min/m\S\2 SV(Teich) 53.2 ml SI(Teich) 26.7 ml/m\S\2 CO(cubed) 2.7 l/min CI(cubed) 1.3 l/min/m\S\2 SV(cubed) 53.3 ml SI(cubed) 26.7 ml/m\S\2 Ao root diam 3.4 cm Ao root area 9.0 cm\S\2 ACS 1.8 cm LA dimension 4.2 cm LA/Ao 1.2 LVAd ap4 27.1 cm\S\2 LVLd ap4 7.1 cm EDV(MOD-sp4) 84.0 ml LVAs ap4 13.9 cm\S\2 LVLs ap4 6.1 cm ESV(MOD-sp4) 27.0 ml EF(MOD-sp4) 67.9 % LVAd ap2 24.0 cm\S\2 LVLd ap2 7.4 cm EDV(MOD-sp2) 65.0 ml LVAs ap2 11.9 cm\S\2 LVLs ap2 5.6 cm ESV(MOD-sp2) 22.0 ml EF(MOD-sp2) 66.2 % CO(MOD-sp4) 2.9 l/min CI(MOD-sp4) 1.4 l/min/m\S\2 SV(MOD-sp4) 57.0 ml SI(MOD-sp4) 28.6 ml/m\S\2 CO(MOD-sp2) 2.2 l/min CI(MOD-sp2) 1.1 l/min/m\S\2 SV(MOD-sp2) 43.0 ml SI(MOD-sp2) 21.5 ml/m\S\2 Doppler Measurements and Calculations MV E max balaji 81.2 cm/sec MV A max balaji 36.7 cm/sec MV E/A 2.2 MV P1/2t max balaji 95.1 cm/sec MV P1/2t 80.4 msec MVA(P1/2t) 2.7 cm\S\2 MV dec slope 346.1 cm/sec\S\2 MV dec time 0.24 sec Ao V2 max 116.5 cm/sec Ao max PG 5.4 mmHg Ao max PG (full) 2.2 mmHg LV V1 max PG 3.2 mmHg LV V1 max 90.1 cm/sec PA V2 max 79.1 cm/sec PA max PG 2.5 mmHg TR max balaji 228.9 cm/sec
[2016-09-18] MEDS ORDERED: NURSING DECISION MEDICATION ORDER SCH (18:15)
[2016-09-18] MEDS ORDERED: SODIUM CHLORIDE 0.65% NA SOLN 45 ML (OCEAN) PRN (18:30)
[2016-09-19 03:54] VITALS: BP 141/68; PULSE 54; TEMP 36.5; O2SAT 97
[2016-09-19] MEDS: LEVOTHYROXINE 100 MCG TAB PO SCH (06:00)
[2016-09-19 07:56] VITALS: BP 126/79; PULSE 51; TEMP 36.3; O2SAT 96
[2016-09-19] MEDS: RANITIDINE HCL 150 MG TAB PO SCH (08:07)
[2016-09-19] MEDS: SERTRALINE HCL 100 MG TAB PO SCH (08:07)
[2016-09-19] MEDS: SOTALOL HCL 80 MG TAB PO SCH ×2 (08:08→09:32)
--- NOTE | 2016-09-19 09:50 | Cardiology Follow-Up ---
Subjective General Date of Service: Sep 19, 2016. Chief Complaint: Atrial fibrillation Pt evaluation today including: conversation w/ patient, physical exam, chart review, lab review, review of studies, review of inpatient medication list History of Present Illness Patient seen and examined. Status post successful synchronized electrical cardioversion by Dr. Contreras on 09/18/2016. No complaints this morning. Feels back to her norm. Denies chest pain, palpitations, dyspnea, cough, orthopnea, PND, edema, excessive fatigue, lightheadedness, dizziness, near syncope. Sotalol held this morning secondary to bradycardia Telemetry: Currently sinus bradycardia at 53 bpm. Atrial and ventricular ectopy. No recurrent atrial fibrillation. September 18, 2016 TTE Interpretation Summary ([facility], Dr. Contreras): The left ventricle is normal in size. There is borderline concentric left ventricular hypertrophy. The left ventricular wall motion is normal. Left ventricular systolic function is normal. Ejection Fraction = 65-70%. The left atrium is moderately dilated. There is trace mitral 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. There is mild tricuspid 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. Allergies Coded Allergies: Iodinated Diagnostic Agents (Verified Allergy, Severe, ANAPHYLAXIS, 09/17/16 ) Erythromycin (Verified Allergy, Intermediate, RASH, 09/17/16) Penicillins (Verified Allergy, Intermediate, RASH, 09/17/16) FROM CHILDHOOD Simvastatin (Verified Allergy, Intermediate, RASH, 09/17/16) Celecoxib (Verified Allergy, Mild, RASH, 09/18/16) Nystatin (Verified Allergy, Mild, RASH, 09/17/16) Moxifloxacin (Verified Adverse Reaction, Intermediate, HALUCINATIONS, ) Social History Smoking Status: Never Smoker Hx Tobacco Use In Past Year?: No Hx Alcohol Use - Type And Amou: No Hx Substance Use - Type And Am: No Problem List Medical Problems: (1) Atrial fibrillation with RVR Status: Acute (2) PAC (premature atrial contraction) Status: Acute Physical Exam Vital Signs Last Vital Signs Documentation Date Time Temp Pulse Resp B/P Pulse Ox O2 Delivery O2 Flow Rate FiO2 09/19/16 08:00 Room Air 09/19/16 07:56 36.3 51 18 126/79 96 09/18/16 12:15 2 Physical Exam Constitutional: General Apperance: heathly-appearing Level of Distress: NAD Psychiatric: Mental Status: active & alert Orientation: to time, to place, to person Memory: recent memory normal, remote memory normal Head: normocephalic, atraumatic Eyes: Pupils: PERRLA Neck: pertinent finding (No JVD) Lungs: Respiratory effort: no dyspnea Auscultation: breath sounds normal, no wheezing, no rales/crackles, no rhonchi Cardiovascular: Heart Auscultation: no murmurs, no rubs, no gallops, bradycardia Peripheral Pulses: Radial Pulse: normal on the left, normal on the right Dorsalis Pedis Pulse: normal on the left, normal on the right Abdomen: Bowel Sounds: normal Inspection & Palpation: soft Extremities: no cyanosis, no edema, no clubbing Neurologic: Cranial Nerves: grossly intact Assessment and Plan Assessment and Plan Presentation on 09/17/2016 with recurrent symptomatic paroxysmal atrial fibrillation with a rapid ventricular response. Status post 09/18/2016 successful synchronized direct current cardioversion by Dr. Contreras without complication. Chronic anticoagulation with Xarelto Echo with normal LV systolic function, borderline concentric LVH, moderate LA enlargement. RECOMMENDATIONS/PLAN: Continue sotalol 80 mg every 12 hours (resting/baseline bradycardia appears to preclude titration) Continue Xarelto, 20 mg once daily with the evening meal. Future options discussed if she fails sotalol. Follow-[facility] as previously scheduled [facility] Dr[facility] Jason Gonzalez[facility] @ 9:05 AM.
--- NOTE | 2016-09-19 10:08 | Progress Note ---
Internal Med Progress Note Date of Service: Sep 19, 2016. Provider Documentation: SUBJECTIVE: Patient denies any palpitations, SOB, Chest pain. No recent illness. No nausea, vomiting, cough, fever, chills. Did not miss any medication doses. Personal stressors + S/P Cardioversion- now in NSR, HR did drop to 45-50s OBJECTIVE: Vital Signs-as noted below Exam: General-AAOX3, no distress Neck-Supple Lungs-AEBE, no wheezing, crackles Heart-Irregularly irregular rhythm, No murmurs Extremities-No edema Lab data as noted below. ASSESSMENT & PLAN: ASSESSMENT AND PLAN : RECURRENT, SYMPTOMATIC ATRIAL FIBRILLATION WITH RVR : S/P Successful Cardioversion on 09/18/[address] Contreras --> NSR since than -Tele- NSR, did drop to 45-50s, asymptomatic -On sotalol 80 mg PO BID- to be continued as at home prior to admission. -Anticoagulation- Xarelto daily HYPOTHYROIDISM -Euthyroids as of today's TSH DVT PROPHYLAXIS Xarelto FULL CODE DISPOSITION Discussed with cardiology Okay to discharge home Vital Signs: Date Time Temp Pulse Resp B/P Pulse Ox O2 Delivery O2 Flow Rate FiO2 09/19/16 08:00 Room Air 09/19/16 07:56 36.3 51 18 126/79 96 Room Air 09/19/16 04:00 Room Air 09/19/16 03:54 36.5 54 16 141/68 97 Room Air 09/19/16 00:00 Room Air 09/18/16 23:48 36.7 45 18 123/73 96 Room Air 09/18/16 20:00 Room Air 09/18/16 20:00 36.6 59 16 119/71 95 Room Air 09/18/16 16:01 36.5 55 20 136/69 96 Room Air 09/18/16 16:00 Room Air 09/18/16 14:38 62 18 125/58 96 Room Air 09/18/16 14:23 66 18 116/77 96 Room Air 09/18/16 14:08 76 18 109/72 96 Room Air 09/18/16 13:53 89 18 114/77 96 Room Air 09/18/16 13:38 65 18 138/75 95 Room Air 09/18/16 13:23 78 18 97/64 96 Room Air 09/18/16 13:08 63 18 109/67 95 Room Air 09/18/16 12:53 76 18 142/91 95 Room Air 09/18/16 12:51 36.4 62 18 118/68 95 Room Air 09/18/16 12:35 57 18 113/66 96 Room Air 09/18/16 12:25 60 18 110/77 96 Room Air 09/18/16 12:15 59 18 108/80 96 Nasal Cannula 2 09/18/16 12:00 Room Air 09/18/16 11:25 36.7 116 18 128/86 96 Room Air
--- NOTE | 2016-09-19 10:10 | Discharge Instructions ---
Discharge Instructions Date of Service Sep 19, 2016. Admission Reason for Admission: Palpitations Discharge Discharge Diagnosis / Problem: 1. Atrial fibrillation status post cardioversion Discharge Goals Goal(s): Therapeutic intervention Activity Recommendations Activity Limitations: resume your previous activity . Instructions / Follow-Up Instructions / Follow-Up No changes in medications FOLLOW UP 1. Dr Allan (PCP) on 09/26/16 at 9:50 AM 2. [facility]- [facility] @ 9:05 AM. Current Hospital Diet Patient's current hospital diet: AHA Diet (Heart Healthy) Discharge Diet Recommended Diet: AHA Diet (Heart Healthy), Low Sodium Diet (2gm Na) Procedures Procedures Performed: Cardioversion on 09/18/16 Echocardiogram Cardiac monitoring Pending Studies Studies pending at discharge: no Medical Emergencies . Who to Call and When: Medical Emergencies: If at any time you feel your situation is an emergency, please call 911 immediately. . Non-Emergent Contact Non-Emergency issues call your: Primary Care Provider . . "Provider Documentation" section prepared by Meghan Malhotra. VTE Core Measure Inpt VTE Proph given/why not?: Other Anticoagulation (xarelto)
--- NOTE | 2016-09-19 10:12 | Discharge Summary ---
Discharge Summary Date of Service Sep 19, 2016. Discharge Summary Admission Date: Sep 18, 2016 at 00:56 Discharge Date: Sep 19, 2016 Discharge Disposition: Home Principal Diagnosis: 1. Recurrent Atrial fibrillation with RVR, Symptomatic 2. Status post cardioversion Secondary Diagnoses/Problems: 1. Hypothyroidism Procedures: Cardioversion on 09/18/[address] Contreras Tele monitoring Serial EKG Serial Trop Echocardiogram Consultations: Cardiology, Dr Contreras Pending Studies/Follow-Up: Instructions / Follow-Up Instructions / Follow-Up No changes in medications FOLLOW UP 1. Dr Allan (PCP) on 09/26/16 at 9:50 AM 2. Cardiology as per schedule Medication Reconciliation Continued Medications: Biotin (Biotin) 5 Mg Tab 5 MG PO 3XWK Levothyroxine Sodium (Levothyroxine Sodium) 100 Mcg Tab 100 MCG PO DAILY for 30 Days, #30 TAB 5 Refills Probiotic Product (Probiotic) 1 Tab Tab 1 TAB PO DAILY Ranitidine (Zantac) 150 Mg Tab 150 MG PO BID for 30 Days, #60 TAB 3 Refills Rivaroxaban (Xarelto) 20 Mg Tab 20 MG PO DAILY, TAB Rosuvastatin Calcium (Crestor) 5 Mg Tab 5 MG PO 3XWK, TAB 5 Refills EVERY FRIDAY/FRIDAY/FRIDAY Sertraline (Zoloft) 100 Mg Tab 100 MG PO DAILY for 90 Days, #90 TAB 1 Refill Sotalol Hcl (Sotalol Hcl) 80 Mg Tab 80 MG PO BID, TAB 5 Refills Admission Information HPI (per Admitting provider): HISTORY OF PRESENT ILLNESS: Medical history significant for atrial fibrillation status post cardioversion, bronchiectasis, hyperlipidemia, reflux, postop hypothyroidism. Recent confinement last 12/2015 for AFib with RVR sp electrical cardioversion. Last night around 10PM, patient noted her heart fluttering while watching television. She took had just taken her nighttime Sotalol tab 10 minutes prior to palpitations - a few hrs later than usual. No chest pain, no shortness of breath, although her breathing was someehat "shallow." Some personal stress with her an adult daughter currently incarcerated in [place]. At the Emergency Room, the patient noted to be in rapid AFib, heart rate in the 140s. Patient received 2 Cardizem boluses. Heart rate alternating subsequently between 74 to 110. Hospital Course ASSESSMENT AND PLAN : RECURRENT, SYMPTOMATIC ATRIAL FIBRILLATION WITH RVR : S/P Successful Cardioversion on 09/18/[address] Contreras --> NSR since than -Tele- NSR, did drop to 45-50s, asymptomatic -On sotalol 80 mg PO BID- to be continued as at home prior to admission. -Anticoagulation- Xarelto daily HYPOTHYROIDISM -Euthyroids as of today's TSH DVT PROPHYLAXIS Xarelto FULL CODE DISPOSITION Discussed with cardiology Okay to discharge home Total time spent on discharge = 25 minutes This includes examination of the patient, discharge planning, medication reconciliation, and communication with other providers. Discharge Instructions Discharge Goals Goal(s): Therapeutic intervention Activity Recommendations Activity Limitations: resume your previous activity . Instructions / Follow-Up Instructions / Follow-Up No changes in medications FOLLOW UP 1. Dr Allan (PCP) on 09/26/16 at 9:50 AM 2. Cardiology as per schedule Current Hospital Diet Patient's current hospital diet: AHA Diet (Heart Healthy) Discharge Diet Recommended Diet: AHA Diet (Heart Healthy), Low Sodium Diet (2gm Na) Procedures Procedures Performed: Cardioversion on 09/18/16 Echocardiogram Cardiac monitoring Pending Studies Studies pending at discharge: no Medical Emergencies . Who to Call and When: Medical Emergencies: If at any time you feel your situation is an emergency, please call 911 immediately. . Non-Emergent Contact Non-Emergency issues call your: Primary Care Provider . . "Provider Documentation" section prepared by Meghan Malhotra. VTE Core Measure Inpt VTE Proph given/why not?: Other Anticoagulation (xarelto)
[2016-09-19 10:14] VITALS: BP 126/79; PULSE 51; TEMP 36.3; O2SAT 96
[2016-11-16] MEDS ORDERED: MOME1AER5 INH (15:41)
[2016-11-16] MEDS ORDERED: LEVA45AE INH (15:41)
[2017-02-22] MEDS ORDERED: PRD20 PO (11:42)
[2017-02-22] MEDS ORDERED: CLC6 PO (11:42)
[2017-03-28] MEDS ORDERED: LPR25 PO (11:23)
[2017-03-28] MEDS ORDERED: CEFD1CAP14 PO (11:23)
[2017-03-28] MEDS ORDERED: PRED-301 PO (11:23)
[2017-03-28] MEDS ORDERED: PRED10TA PO (11:23)
[2017-03-28] MEDS ORDERED: ASPEC81 PO (11:23)
== END 2016-09-19 10:40 | disposition home or self-care (01) ==
LOC: ENRESERVTM → ENRESERVDT → C.EDB 23:00 → C.2T 09-18 00:56
PROVIDERS: ADMIT Internal Medicine; ATTEND Internal Medicine
DX: I48.0 Paroxysmal atrial fibrillation (principal); K21.9 Gastro-esophageal reflux disease without esophagitis; E03.9 Hypothyroidism, unspecified; E78.5 Hyperlipidemia, unspecified; M81.0 Age-related osteoporosis without current pathological fracture; M19.90 Unspecified osteoarthritis, unspecified site; Z79.01 Long term (current) use of anticoagulants; Z90.49 Acquired absence of other specified parts of digestive tract; Z96.652 Presence of left artificial knee joint; Z91.041 Radiographic dye allergy status; Z88.0 Allergy status to penicillin; Z82.49 Family history of ischemic heart disease and other diseases of the circulatory system

== ENCOUNTER → 2016-11-05 | Outpatient (CLI) | payer OTHER ==
[~2016-11-05] MED LIST changes: +ASPEC81 PO; +ASPI325T45 PO; +ASPI81TA28 PO; +CALC-279 PO; -CALC600T9 PO; +CEFD1CAP14 PO; +CLC6 PO; +CMD/25 PO; +COLC0.6T54 PO; -ESTCR PV; +FLAX10007 PO; +FLUT0.15 NAE; +FURO-85 PO; +LEVA45AE INH; +LEVA45AE PO; +LPR25 PO; +METO25TA56 PO; +MOME1AER5 INH; -MULTTAB58 PO; +NITR-5 PO; +POLYSOL4 OP; -POLYSOL8 OPB; +POTA10CA28 PO; +PRD20 PO; +PRED-301 PO; +PRED10TA PO; +PROB1TAB16 PO; +TIOT1SPR INH; +WARF2.5T8 PO; +XPNINS125 NEB
--- NOTE | 2016-11-05 11:01 | DIAGNOSTIC IMAGING REPORT ---
CHEST 2 VIEWS ROUTINE CLINICAL HISTORY: BRONCHIECTASIS (494.0), COUGH (786.2) COMPARISON STUDY: 09/18/2016, CT scan dated 04/15/2016 FINDINGS: The cardiac and mediastinal contours are normal. There is no failure. There is no lobar consolidation. There are linear opacities at the left lung base likely representing subsegmental atelectatic change. There is a 9 mm opacity visualized towards the right lung base. This is not visualized the preceding study. This may represent a small fluid-filled bronchus. Radiographic follow-up is recommended.[ IMPRESSION: 1. Left basilar atelectatic change 2. New 9 mm ovoid opacity at the right lung base. Given the prior findings this may represent a fluid-filled bronchus. Radiographic follow-up is recommended Electronically signed by: Jagdeep Thayer M.D. 11/05/2016 10:59 AM Dictated Date/Time: 11/05/2016 10:56 AM
== END | disposition home or self-care (01) ==
LOC: C.RADBBURG 10:35
PROVIDERS: ATTEND Physician Assistant
DX: J47.9 Bronchiectasis, uncomplicated (principal); R05 Cough

== ENCOUNTER → 2016-11-07 | Outpatient (CLI) | payer OTHER ==
--- NOTE | 2016-11-07 11:26 | DIAGNOSTIC IMAGING REPORT ---
CT OF THE CHEST WITHOUT IV CONTRAST CLINICAL HISTORY: Pulmonary nodule. Bronchiectasis. COMPARISON STUDY: Chest CT April 15, 2016. CT DOSE: 228.28 mGycm TECHNIQUE: Axial images of the chest were obtained without IV contrast. Images were reviewed in the axial, sagittal, and coronal planes. IV contrast was not administered for this examination. FINDINGS: No enlarged axillary, mediastinal or hilar lymph nodes are present. The size of the heart is normal. There is no pericardial effusion. No pneumothorax or pleural effusion is noted. Mild bronchiectasis is noted. Multifocal mucoid impaction with diffuse bronchial wall thickening is noted. This has mildly progressed since exam of April 15, 2016. There is no consolidation to suggest pneumonia. Linear opacities represent atelectasis. There is no cavitation. An old mild T12 compression deformity is noted. There is a right hepatic lobe cyst. The gallbladder is surgically absent. IMPRESSION: 1. Bronchial wall thickening with mild bronchiectasis and multifocal mucus plugging. The findings have mildly progressed since exam of April 15, 2016. 2. No consolidation to suggest pneumonia. 3. No thoracic lymphadenopathy. Electronically signed by: Nguyễn Barakat M.D. 11/07/2016 11:25 AM Dictated Date/Time: 11/07/2016 11:16 AM
== END | disposition home or self-care (01) ==
LOC: C.CTS 11:01
PROVIDERS: ATTEND Physician Assistant
DX: J47.9 Bronchiectasis, uncomplicated (principal); R91.1 Solitary pulmonary nodule

== ENCOUNTER 2016-11-12 23:48 | Inpatient (IN) | payer OTHER ==
[~2016-11-12] VITALS: Ht 172.7 cm; Wt 77.4 kg
[~2016-11-12 23:48] MED LIST changes: -ASPEC81 PO; -ASPI325T45 PO; -ASPI81TA28 PO; -CALC-279 PO; -CEFD1CAP14 PO; -CLC6 PO; -CMD/25 PO; -COLC0.6T54 PO; -FLAX10007 PO; -FLUT0.15 NAE; -FURO-85 PO; -LEVA45AE INH; -LEVA45AE PO; -LPR25 PO; -METO25TA56 PO; -MOME1AER5 INH; -NITR-5 PO; -POLYSOL4 OP; -POTA10CA28 PO; -PRD20 PO; -PRED-301 PO; -PRED10TA PO; -TIOT1SPR INH; -WARF2.5T8 PO; -XPNINS125 NEB
[2016-11-12 23:52] VITALS: Ht 172.7 cm; Wt 77.4 kg
[2016-11-13] VITALS (9 sets, daily range): BP systolic 107–136; BP diastolic 70–90; PULSE 82–106; TEMP 36.5–36.8; O2SAT 95–99; BMI 29.8
[2016-11-13] MEDS ORDERED: SODIUM CHLORIDE 0.9% 500ML 500 ML IV STA (00:08)
[2016-11-13] MEDS ORDERED: METOPROLOL TARTRATE 1 MG/ML VIAL IV STA ×2 (00:08→00:57)
[2016-11-13 00:16] LABS: BASO % 0.4 %; BASO ABS # 0.04 K/uL (0-0.2); COMPLETE YES; EOS % 1.5 %; HEMATOCRIT 46.4 % (37-47); IG% 0.8 %; LYMPH % 30.1 %; LYMPH ABS # 3.28 K/uL (1.2-3.4); MEAN CELL VOLUME 89.6 fL (80-100); MEAN CORPUSCULAR HEMOGLOBIN 29.5 pg (25-34); MEAN PLATELET VOLUME 9.8 fL (7.4-10.4); MONO % 8.7 %; NEUT % 58.5 %; PLATELET COUNT 251 K/uL (130-400); RED BLOOD COUNT 5.18 M/uL (4.2-5.4); WHITE BLOOD COUNT 10.91 K/uL (4.8-10.8)
[2016-11-13] MEDS ORDERED: CALC-279 PO (00:21)
[2016-11-13 00:27] LABS: INR 1.3 (0.9-1.1); PARTIAL THROMBOPLASTIN RATIO 1.1; PROTHROMBIN TIME (PATIENT) 14.2 SECONDS (9.0-12.0)
[2016-11-13 00:35] LABS: BLOOD UREA NITROGEN 25 mg/dl (7-18); BUN/CREATININE RATIO 27.1 (10-20); CALCIUM 9.2 mg/dl (8.5-10.1); CARBON DIOXIDE 26 mmol/L (21-32); CHLORIDE 108 mmol/L (98-107); CREATININE 0.91 mg/dl (0.60-1.20); GLUCOSE 88 mg/dl (70-99); MAGNESIUM 2.4 mg/dl (1.8-2.4); POTASSIUM 4.1 mmol/L (3.5-5.1); SODIUM 141 mmol/L (136-145)
--- NOTE | 2016-11-13 00:43 | EMERGENCY ROOM VISIT NOTE ---
History Report prepared by Cecily: Tor Salazar Under the Supervision of: Dr. Dwight Cao M.D. First contact with patient: 23:56 Chief Complaint: CHEST PAIN Stated Complaint: CHEST PAIN,RESPIRATORY PROBLEMS Nursing Triage Summary: c/o mid chest pain that radiates into right jaw and back since 1930. pt reports that she has been battling bronchitis and has been coughing. pt reports muscle pain from cough. states "this is different than the muscle pain i've had with the cough." History of Present Illness The patient is a 75 year old female who presents to the Emergency Room with complaints of persistent mid chest pain starting about 4 hours ago. She also reports some jaw pain. She has been having intermittent diaphoresis and weakness for the past 2 days. She also complains of a cough. The patient was recently diagnosed with bronchitis. She finished her Z-pack yesterday and her prednisone today. The last time she used a nebulizer was yesterday. She did not have any recent falls or injuries. She denies any recent fevers, or any other complaints. She has a history of A-Fib. She also has a history of heart catheterization occurring in 1987. The patient is on Xarelto. Source of History: patient Onset: about 4 hours ago Position: chest (mid) Timing: other (persistent) Associated Symptoms: + cough, + diaphoresis, + weakness, No fevers Review of Systems See HPI for pertinent positives & negatives. A total of 10 systems reviewed and were otherwise negative. Past Medical & Surgical Medical Problems: (1) Bronchiectasis (2) GERD (gastroesophageal reflux disease) (3) HLD (hyperlipidemia) (4) Hypothyroidism (5) Osteoarthritis (6) Osteoporosis (7) Palpitations (8) Paroxysmal a-fib (9) Rapid atrial fibrillation Surgical Problems: (1) H/O arthroscopic knee surgery (2) H/O partial thyroidectomy (3) History of appendectomy (4) History of sinus surgery (5) History of tonsillectomy (6) History of tubal ligation (7) Hx of cholecystectomy Family History Patient reports no known family medical history. Social History Smoking Status: Never Smoker Alcohol Use: occasionally Drug Use: none Marital Status: Housing Status: lives with family Occupation Status: retired Current/Historical Medications Scheduled Biotin (Biotin), 5 MG PO 3XWK Calcium Citrate-Vitamin D (Calcium Citrate + D), 1 TAB PO DAILY Levothyroxine Sodium (Levothyroxine Sodium), 100 MCG PO DAILY Probiotic Product (Probiotic), 1 TAB PO DAILY Ranitidine (Zantac), 150 MG PO BID Rivaroxaban (Xarelto), 20 MG PO DAILY Rosuvastatin Calcium (Crestor), 5 MG PO 3XWK Sertraline (Zoloft), 100 MG PO DAILY Sotalol Hcl (Sotalol Hcl), 80 MG PO BID Allergies Coded Allergies: Iodinated Diagnostic Agents (Verified Allergy, Severe, ANAPHYLAXIS, 11/13/16 ) Erythromycin (Verified Allergy, Intermediate, RASH, 11/13/16) Penicillins (Verified Allergy, Intermediate, RASH, 11/13/16) FROM CHILDHOOD Simvastatin (Verified Allergy, Intermediate, RASH, 11/13/16) Celecoxib (Verified Allergy, Mild, RASH, 11/13/16) Nystatin (Verified Allergy, Mild, RASH, 11/13/16) Moxifloxacin (Verified Adverse Reaction, Intermediate, HALUCINATIONS, ) Physical Exam Vital Signs Date Time Temp Pulse Resp B/P Pulse Ox O2 Delivery O2 Flow Rate FiO2 11/13/16 01:09 95 16 113/77 95 Room Air 11/13/16 01:02 115 107/70 11/13/16 00:34 112 24 105/61 93 Room Air 11/13/16 00:24 102 20 113/70 95 Room Air 11/13/16 00:21 117 16 106/77 95 Room Air 11/13/16 00:20 94 11/13/16 00:18 112 110/74 11/12/16 23:52 36.6 113 20 126/89 95 Room Air 11/12/16 23:51 95 Room Air Physical Exam GENERAL: Patient is well appearing and in minimal distress. HEENT: No acute trauma, normocephalic atraumatic, mucous membranes moist, no nasal congestion, no scleral icterus. NECK: No stridor, no adenopathy, no meningismus, trachea is midline. LUNGS: No dyspnea. Clear to auscultation and equal bilaterally. No wheeze, no rhonchi. HEART: Tachycardic rate and irregular rhythm. No murmurs, rubs, gallops appreciated. ABDOMEN: Soft, nontender, bowel sounds positive, no masses appreciated, no peritonitis. BACK: No midline tenderness, no CVA tenderness EXTREMITIES: Normal motion all extremities, no cyanosis, no edema. NEUROLOGIC: Alert and oriented, no acute motor or sensory deficits, no focal weakness, cranial nerves grossly intact. SKIN: No rash, no jaundice, no diaphoresis. Medical Decision & Procedures ER Provider Diagnostic Interpretation: X ray results are stated below per my interpretation: CHEST X-RAY ONE VIEW Emphysematous changes, normal cardiac border, infiltrate versus atelectasis in the left lower lung base, no effusion, no pneumothorax, no evidence of rib fracture on this one study. Laboratory Results 11/13/16 00:05 Red Blood Count 5.18, Mean Corpuscular Volume 89.6, Mean Corpuscular Hemoglobin 29.5, Mean Corpuscular Hemoglobin Concent 33.0, Mean Platelet Volume 9.8, Neutrophils (%) (Auto) 58.5, Lymphocytes (%) (Auto) 30.1, Monocytes (%) (Auto) 8.7, Eosinophils (%) (Auto) 1.5, Basophils (%) (Auto) 0.4, Neutrophils # (Auto) 6.39, Lymphocytes # (Auto) 3.28, Monocytes # (Auto) 0.95, Eosinophils # (Auto) 0.16, Basophils # (Auto) 0.04 11/13/16 00:05 Test 11/13/16 00:05 White Blood Count 10.91 K/uL (4.8-10.8) Red Blood Count 5.18 M/uL (4.2-5.4) Hemoglobin 15.3 g/dL (12.0-16.0) Hematocrit 46.4 % (37-47) Mean Corpuscular Volume 89.6 fL (80-100) Mean Corpuscular Hemoglobin 29.5 pg (25-34) Mean Corpuscular Hemoglobin Concent 33.0 g/dl (32-36) Platelet Count 251 K/uL (130-400) Mean Platelet Volume 9.8 fL (7.4-10.4) Neutrophils (%) (Auto) 58.5 % Lymphocytes (%) (Auto) 30.1 % Monocytes (%) (Auto) 8.7 % Eosinophils (%) (Auto) 1.5 % Basophils (%) (Auto) 0.4 % Neutrophils # (Auto) 6.39 K/uL (1.4-6.5) Lymphocytes # (Auto) 3.28 K/uL (1.2-3.4) Monocytes # (Auto) 0.95 K/uL (0.11-0.59) Eosinophils # (Auto) 0.16 K/uL (0-0.5) Basophils # (Auto) 0.04 K/uL (0-0.2) RDW Standard Deviation 49.1 fL (36.4-46.3) RDW Coefficient of Variation 15.1 % (11.5-14.5) Immature Granulocyte % (Auto) 0.8 % Immature Granulocyte # (Auto) 0.09 K/uL (0.00-0.02) Prothrombin Time 14.2 SECONDS (9.0-12.0) Prothromb Time International Ratio 1.3 (0.9-1.1) Activated Partial Thromboplast Time 28.7 SECONDS (21.0-31.0) Partial Thromboplastin Ratio 1.1 Anion Gap 7.0 mmol/L (3-11) Est Creatinine Clear Calc Drug Dose 59.2 ml/min Estimated GFR () 71.0 Estimated GFR (Non- 61.3 BUN/Creatinine Ratio 27.1 (10-20) Calcium Level 9.2 mg/dl (8.5-10.1) Magnesium Level 2.4 mg/dl (1.8-2.4) Total Bilirubin 0.3 mg/dl (0.2-1) Direct Bilirubin 0.1 mg/dl (0-0.2) Aspartate Amino Transf (AST/SGOT) 10 U/L (15-37) Alanine Aminotransferase (ALT/SGPT) 39 U/L (12-78) Alkaline Phosphatase 64 U/L (45-117) Total Creatine Kinase 62 U/L (26-192) Creatine Kinase MB 4.3 ng/ml (0.5-3.6) Creatine Kinase MB Ratio 6.9 (0-3.0) Troponin I < 0.015 ng/ml (0-0.045) Total Protein 7.0 gm/dl (6.4-8.2) Albumin 3.5 gm/dl (3.4-5.0) Lipase 175 U/L (73-393) Thyroid Stimulating Hormone (TSH) 2.860 uIu/ml (0.300-4.500) Laboratory results as reviewed by me. Medications Administered Medications (Trade) Dose Ordered Sig/Amauri Route Start Time Stop Time Status Last Admin Dose Admin Sodium Chloride (Nss 500ml) 500 ml @ 999 mls/hr Q31M STAT IV 11/13/16 00:08 11/13/16 00:38 DC 11/13/16 00:18 999 MLS/HR Metoprolol Tartrate (Lopressor Iv) 5 mg NOW STAT IV 11/13/16 00:08 11/13/16 00:10 DC 11/13/16 00:18 5 MG Metoprolol Tartrate (Lopressor Iv) 5 mg NOW STAT IV 11/13/16 00:57 11/13/16 00:58 DC 11/13/16 01:02 5 MG ECG Indication: chest pain Rate (beats per minute): 106 Rhythm: atrial fibrillation Findings: no acute ischemic change, other (Rapid ventricular response) ED Course 2356: The patient was evaluated in room A03. A complete history and physical exam was performed. 0008: Lopressor IV 5 mg IV, Sodium Chloride 500 ml @ 999 mls/hr IV 0057: Lopressor IV 5 mg IV 0059: I reevaluated the patient who is still tachycardic with an irregular rhythm. 0110: The patient is feeling better. Her heart rate is in the upper 90s. She continues to have an irregular rhythm. 0118: I discussed the patient's case with Dr. Oreilly, from [facility]. 0208: Upon reevaluation, the patient is resting comfortably. Discussed results and treatment plan with the patient. She verbalized understanding and agreement with the treatment plan. The patient will be evaluated for further management. Medical Decision Differential: Cardiac Ischemia (STEMI, NSTEMI, Unstable Angina, etc), Aortic Dissection, Arrhythmia, Pulmonary Embolism, Pneumonia, Pneumothorax, MSK, Infectious, Pericarditis/Myocarditis, Esophageal Rupture, Gastrointestinal, amongst other pathologies entertained. 75 yr old female on blood thinners and sotalol for her PAF which has required previous cardioversion. Arrives with waxing/waning chest pain radiating to jaw. Minimal pain currently. Found to be in Afib RVR which she was un-aware. Given Lopressor IV x 2 with mild improvement in HR and resolution of any other symptoms. Labs without evidence ACS and no STEMI on EKG. Will need to come in for likely cardioversion and further cardiac rule out. Does have persistent harsh cough which she just finished abx/steroids. Declines cough meds. No large infiltrate on CXR and she is not septic. Will hold further abx at this time. On xarelto so PE unlikely and patient has anaphylaxis to IV dye as it is. Brought in to hospitalist service for further evaluation. Consults Time Called: 114 Consulting Physician: Dr. Oreilly, from [facility] Returned Call: [phone] I discussed the patient's case with Dr. Oreilly, from [facility]. Impression Primary Impression: Atrial fibrillation with RVR Additional Impression: Substernal chest pain Scribe Attestation The scribe's documentation has been prepared under my direction and personally reviewed by me in its entirety. I confirm that the note above accurately reflects all work, treatment, procedures, and medical decision making performed by me. Departure Information Dispostion Being Evaluated By Hospitalist Referrals Trang Allan D.O. (PCP) Patient Instructions My [facility] Problem Qualifiers
[2016-11-13 00:46] LABS: CKMB/CK RATIO 6.9 (0-3.0)
[2016-11-13 01:29] LABS: ALKALINE PHOSPHATASE 64 U/L (45-117); ALT/SGPT 39 U/L (12-78); AST/SGOT 10 U/L (15-37)
[2016-11-13] MEDS ORDERED: TRAMADOL HCL 50 MG TAB PO PRN (02:30)
[2016-11-13] MEDS ORDERED: LORAZEPAM 2 MG/ML 1 ML VIAL IV PRN (02:30)
[2016-11-13] MEDS ORDERED: NITROGLYCERIN 0.4 MG SL PER TAB CHARGE SL PRN (02:30)
[2016-11-13] MEDS ORDERED: SOTALOL HCL 80 MG TAB PO STA (02:30)
[2016-11-13] MEDS ORDERED: LEVALBUTEROL/IPRATROPIUM NEB INH PRN (02:30)
[2016-11-13] MEDS ORDERED: ONDANSETRON INJ 2 MG/ML 2 ML VIAL IV PRN (02:30)
[2016-11-13] MEDS ORDERED: MoRPHine SULFATE 4 MG/ML 1 ML CARP\\VIAL IV PRN (02:30)
[2016-11-13] MEDS ORDERED: GUAIFENESIN 600 MG TABCR PO STA (02:30)
[2016-11-13] MEDS ORDERED: DIGOXIN INJ 500 MCG/2 ML AMP ONE (02:40)
[2016-11-13] MEDS ORDERED: SODIUM CHLORIDE 0.9% 500ML 500 ML IV ONE (02:45)
[2016-11-13] MEDS ORDERED: DIGOXIN IV 250 MCG in SYRINGE 9 ML IV STA ×2 (03:09→04:19)
[2016-11-13] MEDS ORDERED: IPRATROPIUM BROMIDE NEB SOLN 0.02% 2.5 ML VIAL INH PRN (03:30)
[2016-11-13] MEDS ORDERED: LEVALBUTEROL 1.25MG/0.5ML NEB INH PRN (03:30)
[2016-11-13] MEDS ORDERED: SODIUM CHLORIDE 0.9% 1000ML 1,000 ML IV SCH (03:45)
[2016-11-13] MEDS: LEVOTHYROXINE 100 MCG TAB PO SCH (05:57)
[2016-11-13 06:22] LABS: BASO % 0.2 %; BASO ABS # 0.02 K/uL (0-0.2); COMPLETE YES; EOS % 1.7 %; HEMATOCRIT 43.2 % (37-47); IG% 0.8 %; LYMPH % 31.8 %; LYMPH ABS # 3.01 K/uL (1.2-3.4); MEAN CELL VOLUME 90.2 fL (80-100); MEAN CORPUSCULAR HEMOGLOBIN 29.6 pg (25-34); MEAN CORPUSCULAR HGB CONC 32.9 g/dl (32-36); MEAN PLATELET VOLUME 9.9 fL (7.4-10.4); MONO % 9.6 %; NEUT % 55.9 %; PLATELET COUNT 191 K/uL (130-400); RED BLOOD COUNT 4.79 M/uL (4.2-5.4); WHITE BLOOD COUNT 9.48 K/uL (4.8-10.8)
--- NOTE | 2016-11-13 06:49 | DIAGNOSTIC IMAGING REPORT ---
CHEST ONE VIEW PORTABLE CLINICAL HISTORY: Chest Pain dyspnea COMPARISON STUDY: For 30/11/2016 FINDINGS: The bones soft tissues and hemidiaphragms are normal. The cardiomediastinal silhouette is normal. The lungs are clear. The pulmonary vasculature is normal. Chronic bibasilar platelike atelectasis IMPRESSION: Negative chest. Electronically signed by: Garry Torres M.D. 11/13/2016 6:48 AM Dictated Date/Time: 11/13/2016 6:47 AM
--- NOTE | 2016-11-13 07:43 | HISTORY & PHYSICAL EXAMINATION ---
DATE OF ADMISSION: 11/13/2016 PRIMARY CARE PHYSICIAN: Dr. Allan. Hx obtained from px and records. CHIEF COMPLIANT: Chest pain. HISTORY OF PRESENT ILLNESS: Medical history is significant for hypertension, PAFib on Xarelto, bronchiectasis, reflux. Recent confinement last 09/2016 for recurrent AFib with RVR. Patient underwent cardioversion. She had an outpatient referral to [facility], Dr. Samayoa. As per note from 10/2016, infrequent paroxysmal AFib, refractory to sotalol. Consideration for possible AV junction ablation and pacemaker implantation once the patient's pulmonary bronchiectasis issues are resolved. Last week, the patient noted sinus drainage and cough symptoms productive of yellow sputum. Patient's doormaker prescribed azithromycin and steroid course. Patient noted intermittent palpitations from breathing treatment from time to time. Yesterday, the patient noted substernal pain radiating to the R jaw, breathing a little shallow, no diaphoresis. non-pleuritic as per px At the Emergency Room, the patient was noted to be in rapid AFib. Given Lopressor IV. Patient compliant with home meds. A little stressed out after finishing a recent teaching course. MEDICAL HISTORY: As above. A 2D echo from 09/2016 showed borderline LVH, EF 65-70%, LA moderate dilatation. SURGERIES: Knee surgery, thyroidectomy, cholecystectomy, appendectomy, sinus surgery, tonsillectomy, tubal ligation. HOME MEDICATIONS: Include sotalol, Xarelto, Zoloft, Zantac, Biotin, Calcium Plus D, levothyroxine, probiotics, Crestor. ALLERGIES: TO ERYTHROMYCIN, NYSTATIN, SIMVASTATIN, CELECOXIB, MOXIFLOXACIN, PENICILLIN FAMILY HISTORY: Heart disease. PERSONAL AND SOCIAL HISTORY: Nonsmoker. No chronic intake of alcoholic beverages. 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 REVIEW OF SYSTEMS: As per HPI, all other ROS negative. PHYSICAL EXAMINATION: VITAL SIGNS: Blood pressure was noted to be 112/77, pulse rate 115, RR 16, temp 36.7, sats 98 on room air. GENERAL: Noted to be slightly anxious, no respiratory distress. Occasionally coughing. SKIN: Normal color. HEENT: [place] palpebral conjunctivae, dry mucosa. NECK: No JVD. Supple. CHEST: Decreased breath sounds, occ wheeze. HEART: Irregular, tachycardic. ABDOMEN: Soft. EXTREMITES: No edema. no tenderness NEUROLOGIC: No gross focality. LABORATORY DATA: Hemoglobin noted to be 15.3, hematocrit 46.4, white cell count 10, platelets 251. Sodium 141, potassium 4.1, chloride 108, CO2 of 26, BUN 25, creatinine 0.9, glucose noted to be 88. TSH 2.86. Chest x-ray, no infiltrate, atelectasis. EKG showed AFib, some T-wave flattening in the inferior leads. ASSESSMENT: 1. Rapid atrial fibrillation possibly sotalol refractory as per recent outpatient EPS eval; on Xarelto for anticoag uncontrolled rate possibly secondary to recent bronchitis infection (hx bronchiectasis as per records) sp outpx tx recent exertion. 2. Chest pain secondary to above. 3. Hypertension, stable. 4. Hypothyroidism. Euthyroid as of today's TSH. PCU. Continue sotalol. Further management as per Cardiology. (px known to Dr. Gonzalez) Symptomatic treatment for residual sx of bronchitis. DVT prophylaxis, Xarelto. Full code. MTDD
[2016-11-13] MEDS: ROSUVASTATIN CALCIUM 10 MG TAB PO SCH (07:51)
[2016-11-13] MEDS: SERTRALINE HCL 100 MG TAB PO SCH (07:51)
[2016-11-13] MEDS: RANITIDINE HCL 150 MG TAB PO SCH ×2 (07:51→20:13)
[2016-11-13] MEDS: LACTOBACILLUS ACIDOPHILUS (FLORANEX) TAB PO SCH (07:51)
[2016-11-13] MEDS: SOTALOL HCL 80 MG TAB PO SCH ×2 (07:52→20:12)
[2016-11-13] MEDS ORDERED: RIVAROXABAN 10 MG TAB PO SCH (09:00)
[2016-11-13] MEDS ORDERED: NURSING DECISION MEDICATION ORDER SCH (09:30)
--- NOTE | 2016-11-13 12:28 | Cardiology Consultation ---
Cardiology Consultation Date of Consultation: November 13, 2016 History of Present Illness Catracho Penn is a 75 year old female seen in cardiology consultation per the request of Dr. Horton for evaluation of chest discomfort and recurrent atrial fibrillation with rapid ventricular rate. The patient's primary pe teacher is Dr. Jason Gonzalez of our practice. The patient had recently also been seen by Dr Stefan Samayoa of [facility] electrophysiology in outpatient consultation. The patient presented to the emergency department overnight last night with complaint of midline chest discomfort and associated jaw discomfort. She noted onset of the symptoms at 7:30 PM. They persisted for some time and she ultimately took her pulse and noted that she had an elevated pulse consistent with her past history of recurrent atrial fibrillation. On arrival to the emergency department EKG performed on 11/12/2016 at 2352 hrs. revealed atrial fibrillation with mildly elevated ventricular response of [address] abnormality. The patient received 2 doses of IV digoxin overnight last night and although she remains in atrial fibrillation, rate is better controlled with resting ventricular rate in the 90-110 beat per minute range at present. Remaining interview the patient she is comfortable. She has a past history of bronchiectasis for which she follows with Dr. Mac pulmonary medicine. She notes a recent history of a severe bronchitis episode that started 14 days ago. She completed a course of oral prednisone yesterday and also recently completed a five-day course of azithromycin. She noted that she had a productive cough early on in the episode. The cough is still present but is less productive. History PAST MEDICAL HISTORY: 1. Recurrent symptomatic paroxysmal atrial fibrillation 2. High-risk features for cardiac embolic stroke withCHADS-VASc Score of 4 points. 3. Bronchiectasis 4. Dyslipidemia 5. Hypothyroidism 6. Gastric esophageal reflux disease 7. History of pancreatitis due to biliary obstruction 8. Osteoarthritis 9. Osteoporosis PAST SURGICAL HISTORY: 1. Arthroscopic knee surgery 2. Status post left knee replacement 2016 in [place] 3. Partial thyroidectomy 4. Appendectomy 5. Sinus surgery 6. Tonsillectomy 7. Tubal ligation FAMILY HISTORY: Mother of congestive heart failure and 92 years old Father survived abdominal aortic aneurysm repair passing away 9 years later with myocardial infarction. Brother with history of rheumatic fever as a child and also had atrial fibrillation. 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 A total of 10 systems reviewed and were otherwise negative. Allergies Coded Allergies: Iodinated Diagnostic Agents (Verified Allergy, Severe, ANAPHYLAXIS, 11/13/16 ) Erythromycin (Verified Allergy, Intermediate, RASH, 11/13/16) Penicillins (Verified Allergy, Intermediate, RASH, 11/13/16) FROM CHILDHOOD Simvastatin (Verified Allergy, Intermediate, RASH, 11/13/16) Celecoxib (Verified Allergy, Mild, RASH, 11/13/16) Nystatin (Verified Allergy, Mild, RASH, 11/13/16) Moxifloxacin (Verified Adverse Reaction, Intermediate, HALUCINATIONS, ) Uncoded Allergies: seafood (Allergy, Unknown, ANAPHYLAXIS, 11/13/16) patient reported that she is to have allergy testing done to confirm, reaction to contrast and does not eat any seafood Medications Reported Home Medications Medications Dose Route/Sig Max Daily Dose Days Date Category Dose Instructions Calcium Citrate + D (Calcium Citrate-Vitamin D) 1 Tab Tab 1 Tab PO DAILY 11/13/16 Reported Probiotic (Probiotic Product) 1 Tab Tab 1 Tab PO DAILY 09/17/16 Reported Sotalol Hcl 80 Mg Tab 80 Mg PO BID 05/11/16 Reported Biotin 5 Mg Tab 5 Mg PO 3XWK 12/15/15 Reported Xarelto (Rivaroxaban) 20 Mg Tab 20 Mg PO DAILY 12/15/15 Reported Zoloft (Sertraline HCl) 100 Mg Tab 100 Mg PO DAILY 90 11/27/15 Reported Zantac (Ranitidine HCl) 150 Mg Tab 150 Mg PO BID 30 11/27/15 Reported Levothyroxine Sodium 100 Mcg Tab 100 Mcg PO DAILY 30 11/27/15 Reported Crestor (Rosuvastatin Calcium) 5 Mg Tab 5 Mg PO 3XWK 11/27/15 Reported EVERY FRIDAY/FRIDAY/FRIDAY Physical Exam Vital Signs (Last 8hrs): Last 8 Hrs Date Time Temp Pulse Resp B/P Pulse Ox O2 Delivery O2 Flow Rate FiO2 11/13/16 11:21 36.7 82 16 107/72 95 Room Air 11/13/16 08:00 Room Air 11/13/16 07:37 36.6 86 16 109/70 95 Room Air 11/13/16 04:33 110 General Appearance: Alert and Oriented x3. NAD. Head: Normocephalic Atraumatic. Eyes: PERRLA, EOMI, conjunctiva and sclera clear Neck: Supple. No carotid bruits noted. No JVD. No HJD. Respiratory: Coarse bilateral expiratory breath sounds Cardiovascular: irregular rhythm, no murmurs Abdomen: Normal bowel sounds, soft nontender. no abdominal bruits. Extremities: No edema, no clubbing or cyanosis. distal pulses 2/4 bilaterally. Neuro: No focal deficits. Psychiatric: Normal affect. Data Last Resulted 11/13/16 05:55 Red Blood Count 4.79, Mean Corpuscular Volume 90.2, Mean Corpuscular Hemoglobin 29.6, Mean Corpuscular Hemoglobin Concent 32.9, Mean Platelet Volume 9.9, Neutrophils (%) (Auto) 55.9, Lymphocytes (%) (Auto) 31.8, Monocytes (%) (Auto) 9.6, Eosinophils (%) (Auto) 1.7, Basophils (%) (Auto) 0.2, Neutrophils # (Auto) 5.30, Lymphocytes # (Auto) 3.01, Monocytes # (Auto) 0.91, Eosinophils # (Auto) 0.16, Basophils # (Auto) 0.02 Last Resulted 11/13/16 00:05 Past 24 Hours Test 11/13/16 00:05 11/13/16 05:55 Range/Units Creatine Kinase MB 4.3 H 0.5-3.6 ng/ml Creatine Kinase MB Ratio 6.9 H 0-3.0 Prothromb Time International Ratio 1.3 H 0.9-1.1 Prothrombin Time 14.2 H 9.0-12.0 SECONDS Total Creatine Kinase 62 26-192 U/L Troponin I < 0.015 < 0.015 0-0.045 ng/ml Imaging: No infiltrate or interstitial edema EKG: As per history of present illness Telemetry reviewed: As per history of present illness Assessment & Plan Impression: 75-year-old female 1. Recurrent symptomatic atrial fibrillation with rapid ventricular rate 2. Bronchitis, on chronic bronchiectasis Plan: The patient presented with concerns of chest discomfort. EKG revealed recurrent atrial fibrillation with mildly elevated ventricular rate nonspecific ST changes but no definite ST segment depression to designate severe ischemia. Cardiac enzymes have been negative on a serial basis thus far. Although there is some degree of musculoskeletal chest discomfort specifically under her right breast is likely related to her recent cough, her symptoms from yesterday are certainly suggestive of angina with midline chest pressure that radiated to the jaw. At present, I think this is likely due to hypoperfusion in the setting of bronchitis plus atrial fibrillation with rapid ventricular rate and I think these 2 problems need to be addressed first rather than evaluating her for underlying coronary heart disease. She had a pharmacologic nuclear stress test in March 2016 which was negative for inducible ischemia. She had an echocardiogram performed last month in September 2016 that revealed normal biventricular function, moderate left atrial dilatation, and preserved LVEF of 65-70%. She does not have significant pulmonary hypertension noted on that study. Patient has a history of recurrent symptomatically atrial fibrillation. About a year ago in October 2015 she presented with atrial fibrillation and was transitioned to sotalol 80 mg twice a day and then underwent direct-current cardioversion. A month ago, she had recurrent symptoms while on sotalol 80 mg twice a day and on anticoagulation with Xarelto 20 mg daily. She therefore underwent direct-current cardioversion on 09/19/16. She is now however reverted to atrial fibrillation. She has intermittent brief episodes of symptomatic atrial fibrillation noted as an outpatient. Unfortunately when she is in sinus rhythm she is bradycardic limiting the dose of sotalol and therefore dose cannot be increased above 80 mg twice a day. She recently been seen by electrophysiology and treatment options were discussed including transitioning her to the antiarrhythmic medication amiodarone. This medication however has the potential for pulmonary toxicity and given her underlying bronchiectasis is likely not a good long-term choice for her. She also has a history of anaphylactoid reaction with iodinated contrast agents there is concern that this could be a cross reaction to cause difficulty with amiodarone. Since her primary status is suboptimal at present, I do not think that now as a time to challenge her with transition to amiodarone for fear of an acute worsening respiratory decompensation. At present, I'm concerned that her respiratory status is suboptimal and preclude sedation for direct-current cardioversion today or tomorrow and even if we were able to safely sedate her, I think she would likely go back into the atrial fibrillation. Therefore going to consult medicine who is been following the patient as an outpatient persistence and optimizing her respiratory status. If additional antibiotics are necessary, I would recommend avoiding agents that cause QT prolongation since she is on sotalol and would therefore avoid agents such as macrolide antibiotics such as azithromycin, or fluoroquinolones. Doxycycline to be good acceptable alternative. The meantime, it appears that digoxin served her well in terms of an acute rate control medication last night and this is going to be continued in an oral form today. Ultimately, perhaps the patient can undergo recurrent direct current cardioversion when she is optimized from a pulmonary standpoint, and then proceed with outpatient hernia pacemaker implantation and A-V junction ablation as was discussed at her recent electrophysiology consultation. Tyrell Chau, DO
[2016-11-13] MEDS ORDERED: DIGOXIN 0.125 MG TAB PO ONE (12:45)
[2016-11-13] MEDS: RIVAROXABAN 10 MG TAB PO SCH (18:06)
[2016-11-13] MEDS: SODIUM CHLORIDE 0.9% NEBU SOLN 3 ML NEB INH SCH ×2 (18:15→19:13)
[2016-11-13] MEDS: GUAIFENESIN 600 MG TABCR PO SCH (20:12)
--- NOTE | 2016-11-13 20:12 | Progress Note ---
Medicine Progress Note Date & Time of Visit: November 13, 2016 at 14:45 . Subjective Feels somewhat better. Ventricular rate under better control. Chest discomfort improved. Persistent chest congestion + cough. No nausea, vomiting, diarrhea. . Objective Last 8 Hrs Date Time Temp Pulse Resp B/P Pulse Ox O2 Delivery O2 Flow Rate FiO2 11/13/16 19:13 92 16 96 Room Air 11/13/16 16:00 96 Room Air 11/13/16 15:15 36.5 97 20 117/82 96 Room Air 11/13/16 13:07 97 Physical Exam: General- no distress Neck- no JVD Lungs- scattered rhonchi, diffuse moderate expiratory wheezing Heart- irregular, no murmur or gallop appreciated Abdomen- + BS, soft, nontender Extremities- no pretibial edema or calf tenderness Neuro- alert . Laboratory Results: Last 24 Hours Test 11/13/16 00:05 11/13/16 05:55 White Blood Count 10.91 K/uL 9.48 K/uL Red Blood Count 5.18 M/uL 4.79 M/uL Hemoglobin 15.3 g/dL 14.2 g/dL Hematocrit 46.4 % 43.2 % Mean Corpuscular Volume 89.6 fL 90.2 fL Mean Corpuscular Hemoglobin 29.5 pg 29.6 pg Mean Corpuscular Hemoglobin Concent 33.0 g/dl 32.9 g/dl Platelet Count 251 K/uL 191 K/uL Mean Platelet Volume 9.8 fL 9.9 fL Neutrophils (%) (Auto) 58.5 % 55.9 % Lymphocytes (%) (Auto) 30.1 % 31.8 % Monocytes (%) (Auto) 8.7 % 9.6 % Eosinophils (%) (Auto) 1.5 % 1.7 % Basophils (%) (Auto) 0.4 % 0.2 % Neutrophils # (Auto) 6.39 K/uL 5.30 K/uL Lymphocytes # (Auto) 3.28 K/uL 3.01 K/uL Monocytes # (Auto) 0.95 K/uL 0.91 K/uL Eosinophils # (Auto) 0.16 K/uL 0.16 K/uL Basophils # (Auto) 0.04 K/uL 0.02 K/uL RDW Standard Deviation 49.1 fL 50.3 fL RDW Coefficient of Variation 15.1 % 15.1 % Immature Granulocyte % (Auto) 0.8 % 0.8 % Immature Granulocyte # (Auto) 0.09 K/uL 0.08 K/uL Prothrombin Time 14.2 SECONDS Prothromb Time International Ratio 1.3 Activated Partial Thromboplast Time 28.7 SECONDS Partial Thromboplastin Ratio 1.1 Sodium Level 141 mmol/L Potassium Level 4.1 mmol/L Chloride Level 108 mmol/L Carbon Dioxide Level 26 mmol/L Anion Gap 7.0 mmol/L Blood Urea Nitrogen 25 mg/dl Creatinine 0.91 mg/dl Est Creatinine Clear Calc Drug Dose 59.2 ml/min Estimated GFR () 71.0 Estimated GFR (Non- 61.3 BUN/Creatinine Ratio 27.1 Random Glucose 88 mg/dl Calcium Level 9.2 mg/dl Magnesium Level 2.4 mg/dl Total Bilirubin 0.3 mg/dl Direct Bilirubin 0.1 mg/dl Aspartate Amino Transf (AST/SGOT) 10 U/L Alanine Aminotransferase (ALT/SGPT) 39 U/L Alkaline Phosphatase 64 U/L Total Creatine Kinase 62 U/L Creatine Kinase MB 4.3 ng/ml Creatine Kinase MB Ratio 6.9 Troponin I < 0.015 ng/ml < 0.015 ng/ml Total Protein 7.0 gm/dl Albumin 3.5 gm/dl Lipase 175 U/L Thyroid Stimulating Hormone (TSH) 2.860 uIu/ml Assessment & Plan RECURRENT ATRIAL FIBRILLATION Presented with recurrent AF with RVR. Cardiology consulted. Receiving sotalol and digoxin. Anticoagulated on rivaroxaban. HYPERTENSION Continue sotalol. COUGH / SOB History of bronchiectasis. Just finished course of azithromycin and prednisone taper. No infiltrates on chest x-ray. Try to avoid beta agonists if possible due to AF. Pulmonary Medicine consulted. VTE PROPHYLAXIS Anticoagulated on rivaroxaban. Ambulate. DISPOSITION Expected discharge to home. Family Medicine follow-up with Dr. Allan. Cardiology / EP follow-up with Dr. Samayoa at [facility] [place]. . Current Inpatient Medications: Current Inpatient Medications Medications (Trade) Dose Ordered Sig/Amauri Route Start Time Stop Time Status Last Admin Dose Admin Sodium Chloride (Nss 1000ml) 1,000 ml @ 50 mls/hr Q20H IV 11/13/16 03:45 12/13/16 03:44 11/13/16 03:55 50 MLS/HR Nitroglycerin (Nitrostat Tab) 0.4 mg UD PRN SL 11/13/16 02:30 12/13/16 02:29 Lorazepam (Ativan Inj) 0.5 mg Q4H PRN IV 11/13/16 02:30 12/13/16 02:29 Morphine Sulfate (MoRPHine SULFATE INJ) 4 mg Q3H PRN IV 11/13/16 02:30 11/27/16 02:29 Tramadol HCl (Ultram Tab) 25 mg Q6H PRN PO 11/13/16 02:30 12/13/16 02:29 Levothyroxine Sodium (Synthroid Tab) 100 mcg DAILYBB PO 11/13/16 06:00 12/13/16 06:59 11/13/16 05:57 100 MCG Ranitidine HCl (zANTac TAB) 150 mg BID PO 11/13/16 09:00 12/13/16 08:59 11/13/16 07:51 150 MG Rosuvastatin Calcium (Crestor Tab) 5 mg MoWeFr@0900 PO 11/13/16 09:00 12/13/16 08:59 11/13/16 07:51 5 MG Sertraline HCl (Zoloft Tab) 100 mg DAILY PO 11/13/16 09:00 12/13/16 08:59 11/13/16 07:51 100 MG Lactobacillus Acidophilus (Floranex Tab) 1 tab DAILY PO 11/13/16 09:00 12/13/16 08:59 11/13/16 07:51 1 TAB Guaifenesin (Mucinex Contr Rel Tab) 600 mg Q12 PO 11/13/16 21:00 12/13/16 20:59 Sotalol HCl (Betapace Tab) 80 mg BID PO 11/13/16 09:00 12/13/16 08:59 11/13/16 07:52 80 MG Ipratropium [place] (Atrovent 0.02% 0.5MG/2.5ML Neb) 0.5 mg Q4H PRN INH 11/13/16 03:30 12/13/16 03:29 Levalbuterol (Xopenex 1.25MG/ 0.5ML Neb) 1.25 mg Q4H PRN INH 11/13/16 03:30 12/13/16 03:29 Rivaroxaban (Xarelto Tab) 20 mg HS PO 11/13/16 21:00 12/13/16 08:59 11/13/16 18:06 20 MG Digoxin (Lanoxin Tab) 0.125 mg DAILY@16 PO 11/14/16 16:00 12/14/16 15:59 Sodium Chloride (Sodium Chloride 0.9% Neb Soln) 3 ml QIDR INH 11/13/16 16:00 12/13/16 15:59 11/13/16 19:13 3 ML
[2016-11-13] MEDS ORDERED: NURSING VERBAL MED ORDER ONE (20:15)
[2016-11-13] MEDS ORDERED: SOTALOL HCL 80 MG TAB PO SCH (21:00)
[2016-11-14] VITALS (10 sets, daily range): BP systolic 96–138; BP diastolic 56–83; PULSE 60–120; TEMP 36.3–36.8; O2SAT 94–98
[2016-11-14] MEDS: LEVOTHYROXINE 100 MCG TAB PO SCH (05:42)
[2016-11-14] MEDS: SODIUM CHLORIDE 0.9% NEBU SOLN 3 ML NEB INH SCH ×4 (07:05→19:04)
[2016-11-14] MEDS: SOTALOL HCL 80 MG TAB PO SCH ×2 (08:01→20:34)
[2016-11-14] MEDS: LACTOBACILLUS ACIDOPHILUS (FLORANEX) TAB PO SCH (08:01)
[2016-11-14] MEDS: GUAIFENESIN 600 MG TABCR PO SCH ×2 (08:01→20:34)
[2016-11-14] MEDS: SERTRALINE HCL 100 MG TAB PO SCH (08:02)
[2016-11-14] MEDS: RANITIDINE HCL 150 MG TAB PO SCH ×2 (08:02→20:34)
[2016-11-14] MEDS: LEValbuterol HFA 15GM INHALER INH SCH ×4 (08:03→20:39)
--- NOTE | 2016-11-14 11:22 | CARDIOLOGY PROGRESS NOTE ---
DATE: 11/14/2016 SUBJECTIVE: The patient was seen and examined at the bedside. Her daughter is present for evaluation. The patient reports cough with scant sputum production. Expiratory wheezing noted. She was seen by pulmonary medicine this morning, who did not recommend bronchoscopy. The patient's heart rate has improved with the addition of digoxin. She remains in atrial fibrillation with average heart rate of approximately 95 beats per minute at rest. Denies recurrent chest discomfort. No fever or chills. Denies orthopnea, PND, or lower extremity edema. Reports 2 episodes of bronchitis over the past 8 weeks. She was also recently treated with oral corticosteroid therapy. REVIEW OF SYSTEMS: The pertinent positive noted above. A 4-system review including cardiovascular, pulmonary, gastroenterologic, and neurologic systems otherwise negative. MEDICATIONS: Reviewed via EMR. Please see list for details. LABORATORY DATA: None drawn today. PHYSICAL EXAMINATION: VITAL SIGNS: Temperature 36.8 degrees centigrade, pulse is 90 beats per minute and irregular, respiratory rate is 20 breaths per minute, blood pressure 125/82 and SaO2 is 95% on room air. GENERAL: NAD, chronically ill, awake, alert and oriented x3. HEENT: Her mucous membranes are moist. There is no scleral icterus. Conjunctivae are pink. NECK: Supple. There is no JVD, no HJR, and no carotid bruit. HEART: Irregular, borderline tachycardic with a normal S1 and S2. No murmur, rub, or gallop. LUNGS: Demonstrate expiratory wheezing bilaterally, scattered rhonchi noted. No rales. ABDOMEN: Soft and nontender. No rebound or guarding. Normal bowel sounds. EXTREMITIES: Warm and dry without clubbing, cyanosis, or edema. There is 2/4 posterior tibial pulses bilaterally. NEUROLOGIC: Demonstrates no focal motor deficit. FINAL IMPRESSION: 1. Paroxysmal atrial fibrillation -- symptoms resolved with improved rate control on addition of digoxin. 2. Bronchitis with a history of bronchiectasis. 3. Chest discomfort related to rapid atrial fibrillation, cardiac enzymes are undetectable. PLAN AND RECOMMENDATIONS: The patient recently evaluated by electrophysiology, recommending AV node ablation and pacemaker implantation. The patient is agreeable to this procedure. Her respiratory status prohibits intervention at this time. I am also recommending medical therapy and rate control currently, giving her pulmonary status and active wheeze. I suspect that the cardioversion would result in reversion to atrial fibrillation. We may consider cardioversion when her pulmonary status has improved. She will continue oral digoxin in addition to sotalol. Telemetry monitoring during hospitalization. Xarelto for anticoagulation. We will continue to follow during hospitalization.
--- NOTE | 2016-11-14 11:36 | PULMONARY CONSULTATION ---
DATE OF CONSULTATION: 11/14/2016 HISTORY OF PRESENT ILLNESS: This patient is a delightful 75-year-old female, who was admitted to the hospital with recurrent atrial fibrillation on the and Dr. Chau has asked me to evaluate the patient from a pulmonary standpoint. She carries a history of bronchiectasis for a number of years. I reviewed her outpatient records; she had been followed by Dr. Tejada and now is followed by Dr. Mac and Destiny Verdin PA-C. She has a history of mild obstructive lung disease by PFTs in 2014. At that time, she had slight reduction in the FEF 25-75 with 21% improvement in that monitored with albuterol, but only an 8% improvement in FEV1. The diffusion capacity actually looked fairly good. She has actually been fairly stable from a pulmonary standpoint. She never really has significant sputum production. Has minimal cough. She remains very active; traveling, exercising and spending time with her family since she has moved from [place] to the [place]. Two weeks ago, she developed a respiratory tract infection characterized by sore throat and a cough producing some sputum that had a great metallic taste to it. She was then placed on Zithromax and prednisone on the 07 of November. She actually states that from a respiratory standpoint, she did better and then presented to the Emergency Room on the day of admission with chest discomfort associated with some jaw discomfort and recurrent atrial fibrillation. She is followed by Dr. Stefan Samayoa in [place] and Dr. Jason Gonzalez here in [place] for recurrent atrial fibrillation. She may be scheduled for an ablation now. From a pulmonary standpoint, other than minimal cough which generally if nonproductive, now she feels well. She has never been hospitalized for pneumonia. She did have a CT scan of her chest done within the last year that revealed some bronchiectatic changes with some thickening of the bronchi in the lower lobes, but no evidence of any pneumonia. She does have a T12 mild compression fracture and a history of osteoporosis as well. She has not been on any inhaled antibiotics such as gentamicin or tobramycin, has not been using a vibration vest and she really has not needed it. She rarely uses albuterol. She uses that with a nebulizer and that has been discontinued now appropriately. REVIEW OF SYSTEMS: Otherwise, from a pulmonary standpoint is unremarkable. There is no history of TB exposure. No aspiration. She does have a heavy history of secondhand smoke exposure. PAST MEDICAL HISTORY: Significant for; paroxysmal atrial fibrillation, bronchiectasis, hypothyroidism, GERD under good control, biliary obstruction from a stone, pancreatitis, osteoporosis with compression fracture at T12, osteoarthritis and degenerative joint disease. PAST SURGICAL HISTORY: Positive for sinus surgery, tonsillectomy, tubal ligation, partial thyroidectomy, total knee arthroplasty in [place] in 2016, arthroscopy and appendectomy. FAMILY HISTORY: Mother of congestive heart failure at age 92. Father from myocardial infarction, had chronic obstructive lung disease and was a heavy tobacco user. He also had abdominal aortic aneurysm with repair. One brother had rheumatic fever as a child and atrial fibrillation. She has several children (three); no one has any lung disease otherwise. SOCIAL HISTORY: She has never been a tobacco or significant alcohol user. 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 She has not been in the service. ALLERGIES: TO IODINATED CONTRAST, ERYTHROMYCIN, PENICILLIN, ZOCOR, CELEBREX, NYSTATIN AND MOXIFLOXACIN. SHE ALSO HAS ALLERGY TO SEAFOOD. MEDICATIONS: Noted. I reviewed the records, she had Aspergillus titers performed, they were unremarkable and immunoglobulins were unremarkable several years ago. I do not see that she has had a bronchoscopy in the past and does not need one at this point. PHYSICAL EXAMINATION: VITAL SIGNS: Stable and she is afebrile, oxygen saturation is 98% on room air, respiratory rate 16. I\T\O is 1713 in and 1200 out. Weight 89 kilograms, which is stable. HEENT: Unremarkable. No evidence of any thrush is noted. There is no tenderness over the sinuses. No skin lesions are noted. No adenopathy is noted. Thyroid is nonpalpable. Carotid upstroke is normal. HEART: Irregular rhythm. No gallops or murmurs are auscultated. LUNGS: Reveal some mild wheezing with forced expiration bilaterally with a few scattered rhonchi, no fremitus is noted. No bronchial breath sounds were noted. ABDOMEN: Soft and nontender. EXTREMITIES: She has no cyanosis, clubbing or edema. CT scan of the chest was done on 11/07/2016; compared to the previous CT from 05/12/2016 reveals changes consistent with some bronchial wall thickening with mucus plugging, but this was at the time of her recent infection. No evidence of pneumonia, atelectasis or nodules were noted. LABORATORY DATA: White count 9.48, hemoglobin 14.2, platelet count 191,000 with an unremarkable differential. Chemistry profile was unremarkable with a normal TSH, lipase and liver function studies. INR was 1.3. IMPRESSION: 1. Bronchiectasis. This was a bit worse just with a respiratory tract infection, probably has responded well to Zithromax and prednisone. Zithromax is a good choice because of its anti-inflammatory effect in people with bronchiectasis. However, I agree with Dr. Chau we probably should avoid using that at this point with her recurrent atrial fibrillation. 2. Recurrent atrial fibrillation. 3. Osteoporosis. RECOMMENDATIONS: 1. At this point, I would discontinue the albuterol and avoid any long acting bronchodilators because of her history of recurrent atrial fibrillation. 2. Add Xopenex 2 puffs four times a day with metered dose inhaler. 3. Add Asmanex 220 mcg one inhalation b.i.d. with a mouth rinse. I have discussed the risks of this medication at great length with the patient. 4. If she would continue to have cough, I would recommend a vibration vest. Really other than inpatients with bronchiectasis associated with cystic fibrosis, the mucolytic agents and inhaled antimicrobial agents such as gentamicin, tobramycin or colistin are not used until there is severe bronchiectasis. This patient does not have that. Up until 2 weeks ago, she has been very active with no significant pulmonary problems. It may be helpful if she does produce sputum to check sputum for Gram stain C\T\S and perhaps MICHELLE or an AFB smear and culture, but she is not producing much now, so I will not order that at this point. I do not think she needs any antibiotics for now. She will follow up with Dr. Mac and Destiny Verdin PA-C as an outpatient. At this point, I think she certainly would be an adequate candidate for atrial ablation and pacemaker implantation. Thanks for asking me to evaluate Ms. Penn and I will be glad to see her again during her hospitalization if you desire. LEATHA
[2016-11-14] MEDS: DIGOXIN 0.125 MG TAB PO SCH (15:41)
[2016-11-14] MEDS ORDERED: ACETAMINOPHEN 500 MG TAB PO PRN (16:15)
[2016-11-14] MEDS ORDERED: NURSING VERBAL MED ORDER ONE (19:45)
[2016-11-14] MEDS ORDERED: POLYETHYLENE (MIRALAX) 17 GM PACK PO PRN (20:00)
--- NOTE | 2016-11-14 20:33 | Progress Note ---
Medicine Progress Note Date & Time of Visit: November 14, 2016 at 14:50 . Subjective Feels better. Mild midchest discomfort this morning while eating; no anginal symptoms. No fever. Cough, dyspnea improved. No nausea or vomiting. Constipated. . Objective Last 8 Hrs Date Time Temp Pulse Resp B/P Pulse Ox O2 Delivery O2 Flow Rate FiO2 11/14/16 19:04 75 16 97 Room Air 11/14/16 16:00 Room Air 11/14/16 15:57 36.3 93 18 119/83 97 Room Air 11/14/16 15:41 77 11/14/16 15:34 77 16 97 Room Air Physical Exam: General- no distress Neck- no JVD Lungs- diffuse mild expiratory wheezing Heart- irregular, no murmur or gallop appreciated Abdomen- + BS, soft, nontender Extremities- no pretibial edema or calf tenderness Neuro- alert . Assessment & Plan RECURRENT ATRIAL FIBRILLATION Presented with recurrent AF with RVR. Cardiology consulted. Receiving sotalol and digoxin. Anticoagulated on rivaroxaban. HYPERTENSION Continue sotalol. COUGH / SOB History of bronchiectasis. Just finished course of azithromycin and prednisone taper. No infiltrates on chest x-ray. Pulmonary Medicine consulted. Started on levalbuterol + mometasone inhalers. No further antibiotic or systemic steroids at this time. VTE PROPHYLAXIS Anticoagulated on rivaroxaban. Ambulate. DISPOSITION Expected discharge to home. Family Medicine follow-up with Dr. Allan. Cardiology / EP follow-up with Dr. Samayoa at [facility] [place]. . Current Inpatient Medications: Current Inpatient Medications Medications (Trade) Dose Ordered Sig/Amauri Route Start Time Stop Time Status Last Admin Dose Admin Nitroglycerin (Nitrostat Tab) 0.4 mg UD PRN SL 11/13/16 02:30 12/13/16 02:29 Lorazepam (Ativan Inj) 0.5 mg Q4H PRN IV 11/13/16 02:30 12/13/16 02:29 Morphine Sulfate (MoRPHine SULFATE INJ) 4 mg Q3H PRN IV 11/13/16 02:30 11/27/16 02:29 Tramadol HCl (Ultram Tab) 25 mg Q6H PRN PO 11/13/16 02:30 12/13/16 02:29 Levothyroxine Sodium (Synthroid Tab) 100 mcg DAILYBB PO 11/13/16 06:00 12/13/16 06:59 11/14/16 05:42 100 MCG Ranitidine HCl (zANTac TAB) 150 mg BID PO 11/13/16 09:00 12/13/16 08:59 11/14/16 08:02 150 MG Rosuvastatin Calcium (Crestor Tab) 5 mg MoWeFr@0900 PO 11/13/16 09:00 12/13/16 08:59 11/13/16 07:51 5 MG Sertraline HCl (Zoloft Tab) 100 mg DAILY PO 11/13/16 09:00 12/13/16 08:59 11/14/16 08:02 100 MG Lactobacillus Acidophilus (Floranex Tab) 1 tab DAILY PO 11/13/16 09:00 12/13/16 08:59 11/14/16 08:01 1 TAB Guaifenesin (Mucinex Contr Rel Tab) 600 mg Q12 PO 11/13/16 21:00 12/13/16 20:59 11/14/16 08:01 600 MG Sotalol HCl (Betapace Tab) 80 mg BID PO 11/13/16 09:00 12/13/16 08:59 11/14/16 08:01 80 MG Rivaroxaban (Xarelto Tab) 20 mg HS PO 11/13/16 21:00 12/13/16 08:59 11/13/16 18:06 20 MG Digoxin (Lanoxin Tab) 0.125 mg DAILY@16 PO 11/14/16 16:00 12/14/16 15:59 11/14/16 15:41 0.125 MG Sodium Chloride (Sodium Chloride 0.9% Neb Soln) 3 ml QIDR INH 11/13/16 16:00 12/13/16 15:59 11/14/16 19:04 3 ML Mometasone Furoate (Asmanex 220MCG Inh) 1 puff PM INH 11/14/16 21:00 12/14/16 20:59 Levalbuterol (Xopenex Hfa Inhaler) 2 puffs QID INH 11/14/16 09:00 12/14/16 08:59 11/14/16 17:18 2 PUFFS Acetaminophen (Tylenol Tab) 1,000 mg Q8H PRN PO 11/14/16 16:15 12/14/16 16:14 Polyethylene (Miralax Powder Packet) 17 gm DAILY PRN PO 11/14/16 20:00 12/14/16 19:59
[2016-11-14] MEDS: RIVAROXABAN 10 MG TAB PO SCH (20:34)
[2016-11-14] MEDS: MOMETASONE FUROATE 14 PUFF/1 INHALER INH SCH (20:39)
[2016-11-14] MEDS ORDERED: DOCUSATE SODIUM 100 MG CAP PO ONE (21:00)
[2016-11-15] VITALS (13 sets, daily range): BP systolic 92–115; BP diastolic 59–77; PULSE 75–105; TEMP 36.5–36.8; O2SAT 95–97
[2016-11-15] MEDS: LEVOTHYROXINE 100 MCG TAB PO SCH (06:26)
[2016-11-15] MEDS: SODIUM CHLORIDE 0.9% NEBU SOLN 3 ML NEB INH SCH ×4 (07:24→19:15)
[2016-11-15] MEDS: LEValbuterol HFA 15GM INHALER INH SCH ×4 (08:15→21:31)
[2016-11-15] MEDS: SOTALOL HCL 80 MG TAB PO SCH ×2 (08:16→21:33)
[2016-11-15] MEDS: RANITIDINE HCL 150 MG TAB PO SCH ×2 (08:16→21:34)
[2016-11-15] MEDS: SERTRALINE HCL 100 MG TAB PO SCH (08:16)
[2016-11-15] MEDS: GUAIFENESIN 600 MG TABCR PO SCH ×2 (08:17→21:34)
[2016-11-15] MEDS: LACTOBACILLUS ACIDOPHILUS (FLORANEX) TAB PO SCH (08:17)
[2016-11-15] MEDS: ROSUVASTATIN CALCIUM 10 MG TAB PO SCH (08:17)
--- NOTE | 2016-11-15 09:41 | Cardiology Follow-Up ---
Subjective General Date of Service: November 15, 2016. Pt evaluation today including: conversation w/ patient, physical exam, chart review, lab review, review of studies, review of inpatient medication list History of Present Illness The patient is a 75 year old female seen in follow-up. Cough and wheezing improved. Denies chest pain or unusual shortness of breath. She is aware of her irregular heartbeat and palpitations when ambulating in the halls. Denies lightheadedness or dizziness. Offers no new complaints at this time. Allergies Coded Allergies: Iodinated Diagnostic Agents (Verified Allergy, Severe, ANAPHYLAXIS, 11/13/16 ) Erythromycin (Verified Allergy, Intermediate, RASH, 11/13/16) Penicillins (Verified Allergy, Intermediate, RASH, 11/13/16) FROM CHILDHOOD Simvastatin (Verified Allergy, Intermediate, RASH, 11/13/16) Celecoxib (Verified Allergy, Mild, RASH, 11/13/16) Fish (Verified Allergy, Mild, GI SYMPTOMS, 11/13/16) Nystatin (Verified Allergy, Mild, RASH, 11/13/16) Moxifloxacin (Verified Adverse Reaction, Intermediate, HALUCINATIONS, ) Uncoded Allergies: seafood (Allergy, Unknown, ANAPHYLAXIS, 11/13/16) patient reported that she is to have allergy testing done to confirm, reaction to contrast and does not eat any seafood Social History Smoking Status: Never Smoker Hx Tobacco Use In Past Year?: No Hx Alcohol Use - Type And Amou: No Hx Substance Use - Type And Am: No Problem List Medical Problems: (1) Atrial fibrillation with RVR Status: Acute (2) Atrial fibrillation with RVR Status: Acute (3) PAC (premature atrial contraction) Status: Acute (4) Substernal chest pain Status: Acute Review of Systems Respiratory: + cough, + dyspnea on exertion, + wheezing, No dyspnea at rest, No hemoptysis, No shortness of breath, No sputum Cardiac: No chest pain, No claudication, No edema, No orthopnea, No palpitations Physical Exam Vital Signs Last Vital Signs Documentation Date Time Temp Pulse Resp B/P Pulse Ox O2 Delivery O2 Flow Rate FiO2 11/15/16 07:25 78 16 97 Room Air 11/15/16 03:46 36.5 115/76 Physical Exam Constitutional: General Apperance: heathly-appearing Level of Distress: NAD Head: normocephalic, atraumatic ENMT: normal ENT inspection Neck: supple, trachea midline Lungs: Auscultation: no rales/crackles, expiratory wheezing, rhonchi Cardiovascular: Heart Auscultation: normal S1, normal S2, no murmurs, irregular rate rhythm Peripheral Pulses: Radial Pulse: normal on the right Abdomen: Bowel Sounds: normal Inspection & Palpation: soft, non-distended, no tenderness, guarding & rebound Extremities: no cyanosis, no edema, no clubbing, no ulcers Neurologic: Gait & Station: pertinent finding (no focal deficit.) Cranial Nerves: grossly intact Assessment and Plan Assessment and Plan FINAL IMPRESSION: 1. Paroxysmal atrial fibrillation with RVR - rate control improved with addition of digoxin. 2. Bronchitis with a history of bronchiectasis. 3. Chest discomfort related to rapid atrial fibrillation - resolved - CE negative PLAN AND RECOMMENDATIONS: Continue sotalol and digoxin as well as Xarelto for anticoagulation. Pulmonary status has mildly improved, however, I do not believe cardioversion would be successful at this time. Will reassess in the a.m. Consider cardioversion on Friday if respiratory status improved. No medication changes at this time.
--- NOTE | 2016-11-15 13:32 | Anesthesiology Progress Note ---
Anesthesia Progress Note Date of Service November 15, 2016. Progress Notes The patient is a 75 y/o female with afib scheduled for a cardioversion on . She has bronchiectasis and has had a recent URI that has triggered her afib. She has had several cardioversions in the past and tolerated them well. Other PMH includes HTN, dyslipidemia, hiatal hernia, GERD, hx pancreatitis, arthritis, and hypothyroidism. The patient has no CP but easily gets SOB with activity. Her EKG shows afib with RVR. Labs are normal. On exam the patient has a pleasant affect. She has slightly limited neck extension. She is a MP 2 with intact teeth. Lungs were clear. Heart was irregular. Carotids were negative for bruits. The patient is an ASA 3. The patient was consented for MAC anesthesia. She was counseled to remain NPO except for sips of water after 2300 on 11/17/16.
[2016-11-15] MEDS: RIVAROXABAN 10 MG TAB PO SCH (16:25)
[2016-11-15] MEDS: DOCUSATE SODIUM 100 MG CAP PO SCH (16:26)
[2016-11-15] MEDS: DIGOXIN 0.125 MG TAB PO SCH (16:26)
[2016-11-15] MEDS ORDERED: COUGH DROP (SUGAR FREE) LOZ 24 LOZ/1 BOX ONE (16:30)
--- NOTE | 2016-11-15 20:58 | Progress Note ---
Medicine Progress Note Date & Time of Visit: November 15, 2016 at 17:30 . Subjective No chest pain. Cough and dyspnea improved. No nausea or vomiting. Ambulating. . Objective Last 8 Hrs Date Time Temp Pulse Resp B/P Pulse Ox O2 Delivery O2 Flow Rate FiO2 11/15/16 20:19 95 Room Air 11/15/16 20:12 36.7 75 16 100/70 95 Room Air 11/15/16 19:15 84 16 97 Room Air 11/15/16 16:26 105 11/15/16 16:00 Room Air 11/15/16 15:38 36.8 105 20 104/ 96 Room Air 11/15/16 15:22 77 16 97 Room Air Physical Exam: General- lying in bed; no distress Neck- no JVD Lungs- diffuse mild expiratory wheezing Heart- irregular, no murmur or gallop appreciated Abdomen- + BS, soft, nontender Extremities- no pretibial edema or calf tenderness Neuro- alert . Laboratory Results: Date/Time Source Procedure Growth Status 11/15/16 09:40 Sputum Expectorated Sputum Gram Stain Pending Received 11/15/16 09:40 Sputum Expectorated Sputum Sputum Culture Pending Received Assessment & Plan RECURRENT ATRIAL FIBRILLATION Presented with recurrent AF with RVR. Cardiology consulted. Receiving sotalol and digoxin. Anticoagulated on rivaroxaban. Possible cardioversion once respiratory symptoms improve. HYPERTENSION Continue sotalol. COUGH / SOB History of bronchiectasis. Just finished course of azithromycin and prednisone taper. No infiltrates on chest x-ray. Pulmonary Medicine consulted. Started on levalbuterol + mometasone inhalers with improvement. No further antibiotic or systemic steroids at this time. VTE PROPHYLAXIS Anticoagulated on rivaroxaban. Ambulate. DISPOSITION Expected discharge to home. Family Medicine follow-up with Dr. Allan. Cardiology / EP follow-up with Dr. Samayoa at [facility] [place]. . Current Inpatient Medications: Current Inpatient Medications Medications (Trade) Dose Ordered Sig/Amauri Route Start Time Stop Time Status Last Admin Dose Admin Nitroglycerin (Nitrostat Tab) 0.4 mg UD PRN SL 11/13/16 02:30 12/13/16 02:29 Lorazepam (Ativan Inj) 0.5 mg Q4H PRN IV 11/13/16 02:30 12/13/16 02:29 Morphine Sulfate (MoRPHine SULFATE INJ) 4 mg Q3H PRN IV 11/13/16 02:30 11/27/16 02:29 Tramadol HCl (Ultram Tab) 25 mg Q6H PRN PO 11/13/16 02:30 12/13/16 02:29 Levothyroxine Sodium (Synthroid Tab) 100 mcg DAILYBB PO 11/13/16 06:00 12/13/16 06:59 11/15/16 06:26 100 MCG Ranitidine HCl (zANTac TAB) 150 mg BID PO 11/13/16 09:00 12/13/16 08:59 11/15/16 08:16 150 MG Rosuvastatin Calcium (Crestor Tab) 5 mg MoWeFr@0900 PO 11/13/16 09:00 12/13/16 08:59 11/15/16 08:17 5 MG Sertraline HCl (Zoloft Tab) 100 mg DAILY PO 11/13/16 09:00 12/13/16 08:59 11/15/16 08:16 100 MG Lactobacillus Acidophilus (Floranex Tab) 1 tab DAILY PO 11/13/16 09:00 12/13/16 08:59 11/15/16 08:17 1 TAB Guaifenesin (Mucinex Contr Rel Tab) 600 mg Q12 PO 11/13/16 21:00 12/13/16 20:59 11/15/16 08:17 600 MG Sotalol HCl (Betapace Tab) 80 mg BID PO 11/13/16 09:00 12/13/16 08:59 11/15/16 08:16 80 MG Digoxin (Lanoxin Tab) 0.125 mg DAILY@16 PO 11/14/16 16:00 12/14/16 15:59 11/15/16 16:26 0.125 MG Sodium Chloride (Sodium Chloride 0.9% Neb Soln) 3 ml QIDR INH 11/13/16 16:00 12/13/16 15:59 11/15/16 19:15 3 ML Mometasone Furoate (Asmanex 220MCG Inh) 1 puff PM INH 11/14/16 21:00 12/14/16 20:59 11/14/16 20:39 1 PUFF Levalbuterol (Xopenex Hfa Inhaler) 2 puffs QID INH 11/14/16 09:00 12/14/16 08:59 11/15/16 16:26 2 PUFFS Acetaminophen (Tylenol Tab) 1,000 mg Q8H PRN PO 11/14/16 16:15 12/14/16 16:14 Polyethylene (Miralax Powder Packet) 17 gm DAILY PRN PO 11/14/16 20:00 12/14/16 19:59 11/14/16 21:25 17 GM Docusate Sodium (coLACE CAP) 200 mg DAILY@1500 PO 11/15/16 15:00 12/15/16 14:59 11/15/16 16:26 200 MG Rivaroxaban (Xarelto Tab) 20 mg DAILY@1700 PO 11/15/16 17:00 12/15/16 16:59 11/15/16 16:25 20 MG
[2016-11-15] MEDS: MOMETASONE FUROATE 14 PUFF/1 INHALER INH SCH (21:32)
[2016-11-16] VITALS (9 sets, daily range): BP systolic 93–119; BP diastolic 61–81; PULSE 57–88; TEMP 36.5–36.8; O2SAT 95–97
[2016-11-16] MEDS: LEVOTHYROXINE 100 MCG TAB PO SCH (05:49)
[2016-11-16 06:45] LABS: BASO % 0.5 %; BASO ABS # 0.04 K/uL (0-0.2); COMPLETE YES; EOS % 2.5 %; HEMATOCRIT 45.2 % (37-47); IG% 0.3 %; LYMPH % 26.7 %; LYMPH ABS # 2.34 K/uL (1.2-3.4); MEAN CELL VOLUME 89.2 fL (80-100); MEAN CORPUSCULAR HEMOGLOBIN 29.4 pg (25-34); MEAN PLATELET VOLUME 9.6 fL (7.4-10.4); MONO % 8.8 %; NEUT % 61.2 %; PLATELET COUNT 200 K/uL (130-400); RED BLOOD COUNT 5.07 M/uL (4.2-5.4); WHITE BLOOD COUNT 8.75 K/uL (4.8-10.8)
[2016-11-16] MEDS: SODIUM CHLORIDE 0.9% NEBU SOLN 3 ML NEB INH SCH ×2 (07:39→11:01)
[2016-11-16] MEDS: RANITIDINE HCL 150 MG TAB PO SCH (08:34)
[2016-11-16] MEDS: LACTOBACILLUS ACIDOPHILUS (FLORANEX) TAB PO SCH (08:34)
[2016-11-16] MEDS: SOTALOL HCL 80 MG TAB PO SCH (08:34)
[2016-11-16] MEDS: GUAIFENESIN 600 MG TABCR PO SCH (08:34)
[2016-11-16] MEDS: SERTRALINE HCL 100 MG TAB PO SCH (08:35)
[2016-11-16] MEDS: LEValbuterol HFA 15GM INHALER INH SCH ×3 (08:36→16:35)
--- NOTE | 2016-11-16 11:34 | Cardiology Follow-Up ---
Subjective General Date of Service: November 16, 2016. Pt evaluation today including: conversation w/ patient, conversation w/ family , physical exam, chart review, lab review, review of studies, conversation w/ it solutions sales consultant, review of inpatient medication list History of Present Illness The patient is a 75 year old female seen in follow-up. Converted to normal sinus rhythm at approximately 9:55 AM. Remains in sinus bradycardia with occasional premature atrial complexes. Patient states she initially felt unwell at the time of conversion, however, now she is feeling much better. Denies chest pain or shortness of breath. Her wheezing has markedly improved. No orthopnea or PND. Anxious for discharge home if possible. Offers no other complaints at this time. Daughter is present at the bedside. Allergies Coded Allergies: Iodinated Diagnostic Agents (Verified Allergy, Severe, ANAPHYLAXIS, 11/13/16 ) Erythromycin (Verified Allergy, Intermediate, RASH, 11/13/16) Penicillins (Verified Allergy, Intermediate, RASH, 11/13/16) FROM CHILDHOOD Simvastatin (Verified Allergy, Intermediate, RASH, 11/13/16) Celecoxib (Verified Allergy, Mild, RASH, 11/13/16) Fish (Verified Allergy, Mild, GI SYMPTOMS, 11/13/16) Nystatin (Verified Allergy, Mild, RASH, 11/13/16) Moxifloxacin (Verified Adverse Reaction, Intermediate, HALUCINATIONS, ) Uncoded Allergies: seafood (Allergy, Unknown, ANAPHYLAXIS, 11/13/16) patient reported that she is to have allergy testing done to confirm, reaction to contrast and does not eat any seafood Social History Smoking Status: Never Smoker Hx Tobacco Use In Past Year?: No Hx Alcohol Use - Type And Amou: No Hx Substance Use - Type And Am: No Problem List Medical Problems: (1) Atrial fibrillation with RVR Status: Acute (2) Atrial fibrillation with RVR Status: Acute (3) PAC (premature atrial contraction) Status: Acute (4) Substernal chest pain Status: Acute Review of Systems Respiratory: + cough, + dyspnea on exertion, No dyspnea at rest, No hemoptysis , No shortness of breath, No sputum, No wheezing Cardiac: No PND, No chest pain, No claudication, No edema, No orthopnea, No palpitations Physical Exam Vital Signs Last Vital Signs Documentation Date Time Temp Pulse Resp B/P Pulse Ox O2 Delivery O2 Flow Rate FiO2 11/16/16 11:02 84 12 97 Room Air 11/16/16 07:57 36.6 114/75 Physical Exam Constitutional: General Apperance: heathly-appearing Level of Distress: NAD Head: normocephalic, atraumatic ENMT: normal ENT inspection Neck: supple, trachea midline Lungs: Auscultation: no wheezing, no rales/crackles, no rhonchi Cardiovascular: Heart Auscultation: RRR, normal S1, normal S2, no murmurs, bradycardia Peripheral Pulses: Radial Pulse: normal on the right Abdomen: Bowel Sounds: normal Inspection & Palpation: soft, non-distended, no tenderness, guarding & rebound Extremities: no cyanosis, no edema, no clubbing, no ulcers Neurologic: Gait & Station: pertinent finding (no focal deficit.) Cranial Nerves: grossly intact Assessment and Plan Assessment and Plan FINAL IMPRESSION: 1. Paroxysmal atrial fibrillation with RVR -Spontaneous conversion to sinus bradycardia this a.m. at 0955 2. Bronchitis with a history of bronchiectasis. 3. Chest discomfort related to rapid atrial fibrillation - resolved - CE negative PLAN AND RECOMMENDATIONS: Discontinue digoxin. Continue sotalol 80mg BID as well as Xarelto for anticoagulation. I will make arrangements for electrophysiology follow up with Dr. loera at [facility] to schedule AV node ablation and pacemaker implantation as previously recommended. Findings and recommendations were discussed with the patient and her daughter at length. They are agreeable to current plan. Patient may be discharged from a cardiovascular perspective. Laboratory Results Last 24 Hours Test 11/16/16 06:25 White Blood Count 8.75 K/uL Red Blood Count 5.07 M/uL Hemoglobin 14.9 g/dL Hematocrit 45.2 % Mean Corpuscular Volume 89.2 fL Mean Corpuscular Hemoglobin 29.4 pg Mean Corpuscular Hemoglobin Concent 33.0 g/dl Platelet Count 200 K/uL Mean Platelet Volume 9.6 fL Neutrophils (%) (Auto) 61.2 % Lymphocytes (%) (Auto) 26.7 % Monocytes (%) (Auto) 8.8 % Eosinophils (%) (Auto) 2.5 % Basophils (%) (Auto) 0.5 % Neutrophils # (Auto) 5.35 K/uL Lymphocytes # (Auto) 2.34 K/uL Monocytes # (Auto) 0.77 K/uL Eosinophils # (Auto) 0.22 K/uL Basophils # (Auto) 0.04 K/uL RDW Standard Deviation 48.2 fL RDW Coefficient of Variation 15.0 % Immature Granulocyte % (Auto) 0.3 % Immature Granulocyte # (Auto) 0.03 K/uL
--- NOTE | 2016-11-16 15:32 | Progress Note ---
Medicine Progress Note Date & Time of Visit: November 16, 2016 at 11:10 . Subjective Spontaneously converted to SR this morning. [place] a bit tired after converting, but only transiently. No chest pain. Cough, dyspnea improved. . Objective Last 8 Hrs Date Time Temp Pulse Resp B/P Pulse Ox O2 Delivery O2 Flow Rate FiO2 11/16/16 15:29 36.6 57 18 95/61 96 Room Air 11/16/16 12:00 Room Air 11/16/16 11:38 36.8 61 18 93/68 96 Room Air 11/16/16 11:02 84 12 97 Room Air 11/16/16 08:00 Room Air 11/16/16 07:57 36.6 78 19 114/75 95 11/16/16 07:39 88 12 97 Room Air Physical Exam: General- no distress Neck- no JVD Lungs- diffuse mild wheezing Heart- RRR, no murmur or gallop appreciated Abdomen- + BS, soft, nontender Extremities- no pretibial edema or calf tenderness Neuro- alert . Laboratory Results: Last 24 Hours Test 11/16/16 06:25 White Blood Count 8.75 K/uL Red Blood Count 5.07 M/uL Hemoglobin 14.9 g/dL Hematocrit 45.2 % Mean Corpuscular Volume 89.2 fL Mean Corpuscular Hemoglobin 29.4 pg Mean Corpuscular Hemoglobin Concent 33.0 g/dl Platelet Count 200 K/uL Mean Platelet Volume 9.6 fL Neutrophils (%) (Auto) 61.2 % Lymphocytes (%) (Auto) 26.7 % Monocytes (%) (Auto) 8.8 % Eosinophils (%) (Auto) 2.5 % Basophils (%) (Auto) 0.5 % Neutrophils # (Auto) 5.35 K/uL Lymphocytes # (Auto) 2.34 K/uL Monocytes # (Auto) 0.77 K/uL Eosinophils # (Auto) 0.22 K/uL Basophils # (Auto) 0.04 K/uL RDW Standard Deviation 48.2 fL RDW Coefficient of Variation 15.0 % Immature Granulocyte % (Auto) 0.3 % Immature Granulocyte # (Auto) 0.03 K/uL Assessment & Plan RECURRENT ATRIAL FIBRILLATION Presented with recurrent AF with RVR. TSH, lytes OK. Cardiology consulted. Received sotalol and digoxin. Anticoagulated on rivaroxaban. Spontaneous conversion to sinus rhythm with rate in 50's. Digoxin discontinued. Continue sotalol 80 mg BID. Outpatient follow-up with EP anticipated. HYPERTENSION Continue sotalol. COUGH / SOB History of bronchiectasis. Just finished course of azithromycin and prednisone taper. No infiltrates on chest x-ray. Pulmonary Medicine consulted. Started on levalbuterol + mometasone inhalers with improvement. No further antibiotic or systemic steroids at this time. VTE PROPHYLAXIS Anticoagulated on rivaroxaban. Ambulate. DISPOSITION Discharge to home. Family Medicine follow-up with Dr. Allan. Cardiology / EP follow-up with Dr. Samayoa at [facility]. Pulmonary follow-up with Dr. Mac. . Consultants: Cardiology- Drs. Chau and Carlos Pulmonary- Dr. Rudolph . Procedures: cardiac monitoring . Current Inpatient Medications: Current Inpatient Medications Medications (Trade) Dose Ordered Sig/Amauri Route Start Time Stop Time Status Last Admin Dose Admin Nitroglycerin (Nitrostat Tab) 0.4 mg UD PRN SL 11/13/16 02:30 12/13/16 02:29 Lorazepam (Ativan Inj) 0.5 mg Q4H PRN IV 11/13/16 02:30 12/13/16 02:29 Morphine Sulfate (MoRPHine SULFATE INJ) 4 mg Q3H PRN IV 11/13/16 02:30 11/27/16 02:29 Tramadol HCl (Ultram Tab) 25 mg Q6H PRN PO 11/13/16 02:30 12/13/16 02:29 Levothyroxine Sodium (Synthroid Tab) 100 mcg DAILYBB PO 11/13/16 06:00 12/13/16 06:59 11/16/16 05:49 100 MCG Ranitidine HCl (zANTac TAB) 150 mg BID PO 11/13/16 09:00 12/13/16 08:59 11/16/16 08:34 150 MG Rosuvastatin Calcium (Crestor Tab) 5 mg MoWeFr@0900 PO 11/13/16 09:00 12/13/16 08:59 11/15/16 08:17 5 MG Sertraline HCl (Zoloft Tab) 100 mg DAILY PO 11/13/16 09:00 12/13/16 08:59 11/16/16 08:35 100 MG Lactobacillus Acidophilus (Floranex Tab) 1 tab DAILY PO 11/13/16 09:00 12/13/16 08:59 11/16/16 08:34 1 TAB Guaifenesin (Mucinex Contr Rel Tab) 600 mg Q12 PO 11/13/16 21:00 12/13/16 20:59 11/16/16 08:34 600 MG Sotalol HCl (Betapace Tab) 80 mg BID PO 11/13/16 09:00 12/13/16 08:59 11/16/16 08:34 80 MG Sodium Chloride (Sodium Chloride 0.9% Neb Soln) 3 ml QIDR INH 11/13/16 16:00 12/13/16 15:59 11/16/16 11:01 3 ML Mometasone Furoate (Asmanex 220MCG Inh) 1 puff PM INH 11/14/16 21:00 12/14/16 20:59 11/15/16 21:32 1 PUFF Levalbuterol (Xopenex Hfa Inhaler) 2 puffs QID INH 11/14/16 09:00 12/14/16 08:59 11/16/16 08:36 2 PUFFS Acetaminophen (Tylenol Tab) 1,000 mg Q8H PRN PO 11/14/16 16:15 12/14/16 16:14 Polyethylene (Miralax Powder Packet) 17 gm DAILY PRN PO 11/14/16 20:00 12/14/16 19:59 11/14/16 21:25 17 GM Docusate Sodium (coLACE CAP) 200 mg DAILY@1500 PO 11/15/16 15:00 12/15/16 14:59 11/15/16 16:26 200 MG Rivaroxaban (Xarelto Tab) 20 mg DAILY@1700 PO 11/15/16 17:00 12/15/16 16:59 11/15/16 16:25 20 MG
[2016-11-16] MEDS ORDERED: LEVA45AE INH (15:41)
[2016-11-16] MEDS ORDERED: MOME1AER5 INH (15:41)
--- NOTE | 2016-11-16 15:45 | Discharge Instructions ---
Discharge Instructions Date of Service November 16, 2016. Admission Reason for Admission: Rapid Atrial Fibrillation Discharge Discharge Diagnosis / Problem: rapid atrial fibrillation Discharge Goals Goal(s): Improve disease control Activity Recommendations Activity Limitations: resume your previous activity . Instructions / Follow-Up Instructions / Follow-Up APPOINTMENTS: FAMILY MEDICINE 11/21/2016 11:30 AM Trang Allan DO CARDIOLOGY 12/11/2016 12:45 PM Jason Gonzalez DO PULMONARY Dr. Mac INSTRUCTIONS: Avoid stimulants that might cause atrial fibrillation to recur: caffeine nicotine excessive alcohol decongestants in cold and allergy medications Seek medical attention if you have: * temperature above 101 * chest pain or trouble breathing * abdominal pain, nausea, vomiting * diarrhea, dark stools or bloody stools * any unanswered questions or concerns Call 911 if symptoms are severe. Call if you have any questions or problems. My cell # is [phone]. You can also reach a [facility] hospitalist on duty at [facility] 24 hours a day by calling [phone]. Please take good care of yourself. Albino Hou . Current Hospital Diet Patient's current hospital diet: AHA Diet (Heart Healthy) Discharge Diet Recommended Diet: AHA Diet (Heart Healthy) Pending Studies Studies pending at discharge: no Medical Emergencies . Who to Call and When: Medical Emergencies: If at any time you feel your situation is an emergency, please call 911 immediately. . Non-Emergent Contact Non-Emergency issues call your: Primary Care Provider, Distribution Supervisor, Governor Assembler Hydraulic . . "Provider Documentation" section prepared by Albino Hou. . VTE Core Measure Inpt VTE Proph given/why not?: Other Anticoagulation (rivaroxaban)
[2016-11-16] MEDS: DOCUSATE SODIUM 100 MG CAP PO SCH (16:34)
[2016-11-16] MEDS: RIVAROXABAN 10 MG TAB PO SCH (16:34)
--- NOTE | 2016-11-16 19:25 | Discharge Summary ---
Discharge Summary Date of Service November 16, 2016. Discharge Summary Admission Date: November 13, 2016 at 01:54 Discharge Date: November 16, 2016 Discharge Disposition: Home Principal Diagnosis: recurrent atrial fibrillation with rapid ventricular response . Secondary Diagnoses/Problems: Chronic and Resolved Medical Problems: (1) Bronchiectasis Status: Chronic (2) GERD (gastroesophageal reflux disease) Status: Chronic (3) HLD (hyperlipidemia) Status: Chronic (4) Hypothyroidism Status: Chronic (5) Osteoarthritis Status: Chronic (6) Osteoporosis Status: Chronic (7) Paroxysmal a-fib Status: Chronic Surgical Problems: (1) H/O arthroscopic knee surgery Status: Chronic (2) H/O partial thyroidectomy Status: Chronic (3) History of appendectomy Status: Chronic (4) History of sinus surgery Status: Chronic (5) History of tonsillectomy Status: Chronic (6) History of tubal ligation Status: Chronic (7) Hx of cholecystectomy Status: Chronic . Procedures: cardiac monitoring . Consultations: Cardiology- Drs. Chau and Kopinski Pulmonary- Dr. Rudolph . Medication Reconciliation New Medications: Levalbuterol Tartrate (Levalbuterol Tartrate Hfa) 45 Mcg/Act Aer 2 PUFFS INH Q6H PRN for Wheezing, #1 INHALER 5 Refills Mometasone Furoate (Inhalation (Asmanex Hfa) 200 Mcg/Act Aer 1 INHA INH HS, #1 INHALER 5 Refills Continued Medications: Biotin (Biotin) 5 Mg Tab 5 MG PO 3XWK Calcium Citrate-Vitamin D (Calcium Citrate + D) 1 Tab Tab 1 TAB PO DAILY Levothyroxine Sodium (Levothyroxine Sodium) 100 Mcg Tab 100 MCG PO DAILY for 30 Days, #30 TAB 5 Refills Probiotic Product (Probiotic) 1 Tab Tab 1 TAB PO DAILY Ranitidine (Zantac) 150 Mg Tab 150 MG PO BID for 30 Days, #60 TAB 3 Refills Rivaroxaban (Xarelto) 20 Mg Tab 20 MG PO DAILY, TAB Rosuvastatin Calcium (Crestor) 5 Mg Tab 5 MG PO 3XWK, TAB 5 Refills EVERY FRIDAY/FRIDAY/FRIDAY Sertraline (Zoloft) 100 Mg Tab 100 MG PO DAILY for 90 Days, #90 TAB 1 Refill Sotalol Hcl (Sotalol Hcl) 80 Mg Tab 80 MG PO BID, TAB 5 Refills Admission Information HPI (per Admitting provider): Medical history is significant for hypertension, PAFib on Xarelto, bronchiectasis, reflux. Recent confinement last 09/2016 for recurrent AFib with RVR. Patient underwent cardioversion. She had an outpatient referral to [facility], Dr. Samayoa. As per note from 10/2016, infrequent paroxysmal AFib, refractory to sotalol. Consideration for possible AV junction ablation and pacemaker implantation once the patient's pulmonary bronchiectasis issues are resolved. Last week, the patient noted sinus drainage and cough symptoms productive of yellow sputum. 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 Patient noted intermittent palpitations from breathing treatment from time to time. Yesterday, the patient noted substernal pain radiating to the R jaw, breathing a little shallow, no diaphoresis. non-pleuritic as per px At the Emergency Room, the patient was noted to be in rapid AFib. Given Lopressor IV. Patient compliant with home meds. A little stressed out after finishing a recent teaching course. . Physical Exam (per Admitting): VITAL SIGNS: Blood pressure was noted to be 112/77, pulse rate 115, RR 16, temp 36.7, sats 98 on room air. GENERAL: Noted to be slightly anxious, no respiratory distress. Occasionally coughing. SKIN: Normal color. HEENT: [place] palpebral conjunctivae, dry mucosa. NECK: No JVD. Supple. CHEST: Decreased breath sounds, occ wheeze. HEART: Irregular, tachycardic. ABDOMEN: Soft. EXTREMITES: No edema. no tenderness NEUROLOGIC: No gross focality. . Hospital Course RECURRENT ATRIAL FIBRILLATION Presented with recurrent AF with RVR. TSH, lytes OK. Cardiology consulted. Received sotalol and digoxin. Anticoagulated on rivaroxaban. Spontaneous conversion to sinus rhythm with rate in 50's. Digoxin discontinued. Continue sotalol 80 mg BID. Outpatient follow-up with EP anticipated. HYPERTENSION Continue sotalol. COUGH / SOB History of bronchiectasis. Just finished course of azithromycin and prednisone taper. No infiltrates on chest x-ray. Pulmonary Medicine consulted. Started on levalbuterol + mometasone inhalers with improvement. No further antibiotic or systemic steroids at this time. VTE PROPHYLAXIS Anticoagulated on rivaroxaban. Ambulate. DISPOSITION Discharge to home. Family Medicine follow-up with Dr. Allan. Cardiology / EP follow-up with Dr. Samayoa at [facility]. Pulmonary follow-up with Dr. Mac. . Total time spent on discharge = 35 min. This includes examination of the patient, discharge planning, medication reconciliation, and communication with other providers. . Discharge Instructions Date of Service November 16, 2016. Admission Reason for Admission: Rapid Atrial Fibrillation Discharge Discharge Diagnosis / Problem: rapid atrial fibrillation Discharge Goals Goal(s): Improve disease control Activity Recommendations Activity Limitations: resume your previous activity . Instructions / Follow-Up Instructions / Follow-Up APPOINTMENTS: FAMILY MEDICINE 11/21/2016 11:30 AM Trang Allan DO CARDIOLOGY 12/11/2016 12:45 PM Jason Gonzalez DO PULMONARY Dr. Mac INSTRUCTIONS: Avoid stimulants that might cause atrial fibrillation to recur: caffeine nicotine excessive alcohol decongestants in cold and allergy medications Seek medical attention if you have: * temperature above 101 * chest pain or trouble breathing * abdominal pain, nausea, vomiting * diarrhea, dark stools or bloody stools * any unanswered questions or concerns Call 911 if symptoms are severe. Call if you have any questions or problems. My cell # is [phone]. You can also reach a [facility] hospitalist on duty at [facility] 24 hours a day by calling [phone]. Please take good care of yourself. Albino Hou . Current Hospital Diet Patient's current hospital diet: AHA Diet (Heart Healthy) Discharge Diet Recommended Diet: AHA Diet (Heart Healthy) Pending Studies Studies pending at discharge: no Medical Emergencies . Who to Call and When: Medical Emergencies: If at any time you feel your situation is an emergency, please call 911 immediately. . Non-Emergent Contact Non-Emergency issues call your: Primary Care Provider, Naval Gunfire Liaison Officer, Wheat Combine Driver . . "Provider Documentation" section prepared by lAbino Hou. . VTE Core Measure Inpt VTE Proph given/why not?: Other Anticoagulation (rivaroxaban) . Additional Copies To Trang Allan D.O.; Jason Gonzalez DO; Jason Mac MD
[2017-02-22] MEDS ORDERED: PRD20 PO (11:42)
[2017-02-22] MEDS ORDERED: CLC6 PO (11:42)
[2017-03-28] MEDS ORDERED: PRED-301 PO (11:23)
[2017-03-28] MEDS ORDERED: LPR25 PO (11:23)
[2017-03-28] MEDS ORDERED: CEFD1CAP14 PO (11:23)
[2017-03-28] MEDS ORDERED: PRED10TA PO (11:23)
[2017-03-28] MEDS ORDERED: ASPEC81 PO (11:23)
== END 2016-11-16 17:30 | disposition home or self-care (01) | DRG 310 ==
LOC: ENRESERVTM → ENRESERVDT → C.EDA 23:49 → C.2T 11-13 01:54
PROVIDERS: ADMIT Internal Medicine; ATTEND Hospitalist
DX: I48.91 Unspecified atrial fibrillation (principal); K21.9 Gastro-esophageal reflux disease without esophagitis; J47.9 Bronchiectasis, uncomplicated; E03.9 Hypothyroidism, unspecified; M19.90 Unspecified osteoarthritis, unspecified site; E78.5 Hyperlipidemia, unspecified; M81.0 Age-related osteoporosis without current pathological fracture; Z88.0 Allergy status to penicillin

== ENCOUNTER → 2016-11-22 | Outpatient (CLI) | payer OTHER ==
[~2016-11-22] MED LIST changes: +ASPEC81 PO; +ASPI325T45 PO; +ASPI81TA28 PO; +CALC-279 PO; +CEFD1CAP14 PO; +CLC6 PO; +CMD/25 PO; +COLC0.6T54 PO; +FLAX10007 PO; +FLUT0.15 NAE; +FURO-85 PO; +LEVA45AE INH; +LEVA45AE PO; +LPR25 PO; +METO25TA56 PO; +MOME1AER5 INH; +NITR-5 PO; +POLYSOL4 OP; +POTA10CA28 PO; +PRD20 PO; +PRED-301 PO; +PRED10TA PO; +TIOT1SPR INH; +WARF2.5T8 PO; +XPNINS125 NEB
--- NOTE | 2016-11-22 09:54 | DIAGNOSTIC IMAGING REPORT ---
CHEST 2 VIEWS ROUTINE CLINICAL HISTORY: Bronchiectasis COMPARISON STUDY: 11/13/2016 FINDINGS: The cardiac and mediastinal contours are normal. There is no evidence of focal pulmonary consolidation. There is no evidence of failure. No pleural effusions are visualized.[ There are by basilar subsegmental atelectatic changes. IMPRESSION: Bibasilar subsegmental atelectasis. Otherwise negative chest. Electronically signed by: Jagdeep Thayer M.D. 11/22/2016 9:52 AM Dictated Date/Time: 11/22/2016 9:51 AM
== END | disposition home or self-care (01) ==
LOC: C.RADBBURG 09:40
PROVIDERS: ATTEND Internal Medicine Pulmonary Disease
DX: J47.9 Bronchiectasis, uncomplicated (principal); J98.11 Atelectasis

== ENCOUNTER 2016-12-03 23:21 | Inpatient (IN) | payer OTHER ==
[~2016-12-03] VITALS: Ht 172.7 cm; Wt 87.4 kg
[~2016-12-03 23:21] MED LIST changes: -ASPEC81 PO; -ASPI325T45 PO; -ASPI81TA28 PO; -CEFD1CAP14 PO; -CLC6 PO; -CMD/25 PO; -COLC0.6T54 PO; -FLAX10007 PO; -FLUT0.15 NAE; -FURO-85 PO; -LEVA45AE PO; -LPR25 PO; -METO25TA56 PO; -NITR-5 PO; -POLYSOL4 OP; -POTA10CA28 PO; -PRD20 PO; -PRED-301 PO; -PRED10TA PO; -TIOT1SPR INH; -WARF2.5T8 PO; -XPNINS125 NEB
--- NOTE | 2016-12-03 23:56 | EMERGENCY ROOM VISIT NOTE ---
History Report prepared by Cecily: Tor Salazar Under the Supervision of: Blue BauerO. First contact with patient: 23:33 Chief Complaint: CHEST PAIN Stated Complaint: CHEST PAIN, HAD PACE MAKER INSTALLED YESTERDAY History of Present Illness The patient is a 75 year old female who presents to the Emergency Room with complaints of resolved chest pain starting about 4 hours ago. She had a pacemaker placed yesterday after having an AV ablation for A-Fib. She had an episode this morning of irregular beats for over an hour but she was discharged home. About 4 hours ago, the patient started having her chest pain. The sharp and stabbing pain resolved about 40 minutes ago. She currently continues to complain of mild tightness and heaviness in her chest. She reports pain radiation to the jaw which has resolved. She also had some shortness of breath. She has some left arm pain but states that it seems to be separate from her chest pain. She has a history of GERD but denies any similarity. The patient denies any previous cardiac stent placement, bypasses, or heart attacks. She does not have a history of diabetes. She has a history of high cholesterol. Pt denies headache, change in vision, fevers, or any other complaints. Source of History: patient Onset: about 4 hours ago Position: chest Quality: pressure, sharp, stabbing, other (tightness) Timing: resolved Associated Symptoms: + SOB, No fevers, No headache Review of Systems See HPI for pertinent positives & negatives. A total of 10 systems reviewed and were otherwise negative. Past Medical & Surgical Medical Problems: (1) Bronchiectasis (2) Chest pain (3) GERD (gastroesophageal reflux disease) (4) HLD (hyperlipidemia) (5) Hypothyroidism (6) Osteoarthritis (7) Osteoporosis (8) Paroxysmal a-fib (9) Rapid atrial fibrillation Surgical Problems: (1) H/O arthroscopic knee surgery (2) H/O partial thyroidectomy (3) History of appendectomy (4) History of sinus surgery (5) History of tonsillectomy (6) History of tubal ligation (7) Hx of cholecystectomy Family History Patient reports no known family medical history. Social History Smoking Status: Never Smoker Alcohol Use: occasionally Drug Use: none Marital Status: Housing Status: lives with family Occupation Status: retired Current/Historical Medications Scheduled Biotin (Biotin), 5 MG PO 3XWK Calcium Citrate-Vitamin D (Calcium Citrate + D), 1 TAB PO DAILY Levothyroxine Sodium (Levothyroxine Sodium), 100 MCG PO DAILY Mometasone Furoate (Inhalation (Asmanex Hfa), 1 PUFF INH HS Probiotic Product (Probiotic), 1 TAB PO DAILY Ranitidine (Zantac), 150 MG PO BID Rivaroxaban (Xarelto), 20 MG PO DAILY Rosuvastatin Calcium (Crestor), 5 MG PO 3XWK Sertraline (Zoloft), 100 MG PO DAILY Sotalol Hcl (Sotalol Hcl), 80 MG PO BID Scheduled PRN Levalbuterol Tartrate (Levalbuterol Tartrate Hfa), 2 PUFFS INH Q6H PRN for Wheezing Allergies Coded Allergies: Iodinated Diagnostic Agents (Verified Allergy, Severe, ANAPHYLAXIS, ) Erythromycin (Verified Allergy, Intermediate, RASH, 12/03/16) Penicillins (Verified Allergy, Intermediate, RASH, 12/03/16) FROM CHILDHOOD Simvastatin (Verified Allergy, Intermediate, RASH, 12/03/16) Celecoxib (Verified Allergy, Mild, RASH, 12/03/16) Fish (Verified Allergy, Mild, GI SYMPTOMS, 12/03/16) Nystatin (Verified Allergy, Mild, RASH, 12/03/16) Moxifloxacin (Verified Adverse Reaction, Intermediate, HALUCINATIONS, 12/03) Uncoded Allergies: seafood (Allergy, Unknown, ANAPHYLAXIS, 11/13/16) patient reported that she is to have allergy testing done to confirm, reaction to contrast and does not eat any seafood Physical Exam Vital Signs Date Time Temp Pulse Resp B/P Pulse Ox O2 Delivery O2 Flow Rate FiO2 12/03/16 23:34 82 12/03/16 23:23 36.7 81 20 134/85 94 Room Air Physical Exam GENERAL: Sitting up in bed, disheveled chronically ill appearing, no distress, non-toxic EYE EXAM: normal conjunctiva, PERRL and EOM's grossly intact OROPHARYNX: no exudate, no erythema, lips, buccal mucosa, and tongue normal and mucous membranes are moist NECK: supple, no nuchal rigidity, no adenopathy, non-tender CHEST: Pacemaker in place with an incision that is clear, dry, and intact in left chest wall. LUNGS: Clear to auscultation. Normal chest wall mechanics HEART: no murmurs, S1 normal and S2 normal ABDOMEN: abdomen soft, non-tender, normo-active bowel sounds, no masses, no rebound or guarding. BACK: Back is symmetrical on inspection and there is no deformity, no midline tenderness, no CVA tenderness. SKIN: no rashes and no bruising UPPER EXTREMITIES: upper extremities are grossly normal. LOWER EXTREMITIES: No pitting edema. Calves are equal bilaterally. NEURO EXAM: Normal sensorium, cranial nerves II-XII grossly intact, normal speech, no gross weakness of arms, no gross weakness of legs. Medical Decision & Procedures ER Provider Diagnostic Interpretation: XRAY: A Portable view upright study was reviewed which showed pacemaker in place. Consolidation in the left lower and right lower lobes. Favor atelectasis. Laboratory Results 12/03/16 23:40 Red Blood Count 4.57, Mean Corpuscular Volume 90.4, Mean Corpuscular Hemoglobin 29.5, Mean Corpuscular Hemoglobin Concent 32.7, Mean Platelet Volume 9.7, Neutrophils (%) (Auto) 60.2, Lymphocytes (%) (Auto) 21.9, Monocytes (%) (Auto) 11.7, Eosinophils (%) (Auto) 5.6, Basophils (%) (Auto) 0.3, Neutrophils # (Auto ) 3.53, Lymphocytes # (Auto) 1.29, Monocytes # (Auto) 0.69, Eosinophils # (Auto ) 0.33, Basophils # (Auto) 0.02 12/03/16 23:40 Test 12/03/16 23:40 White Blood Count 5.88 K/uL (4.8-10.8) Red Blood Count 4.57 M/uL (4.2-5.4) Hemoglobin 13.5 g/dL (12.0-16.0) Hematocrit 41.3 % (37-47) Mean Corpuscular Volume 90.4 fL (80-100) Mean Corpuscular Hemoglobin 29.5 pg (25-34) Mean Corpuscular Hemoglobin Concent 32.7 g/dl (32-36) Platelet Count 138 K/uL (130-400) Mean Platelet Volume 9.7 fL (7.4-10.4) Neutrophils (%) (Auto) 60.2 % Lymphocytes (%) (Auto) 21.9 % Monocytes (%) (Auto) 11.7 % Eosinophils (%) (Auto) 5.6 % Basophils (%) (Auto) 0.3 % Neutrophils # (Auto) 3.53 K/uL (1.4-6.5) Lymphocytes # (Auto) 1.29 K/uL (1.2-3.4) Monocytes # (Auto) 0.69 K/uL (0.11-0.59) Eosinophils # (Auto) 0.33 K/uL (0-0.5) Basophils # (Auto) 0.02 K/uL (0-0.2) RDW Standard Deviation 49.6 fL (36.4-46.3) RDW Coefficient of Variation 15.0 % (11.5-14.5) Immature Granulocyte % (Auto) 0.3 % Immature Granulocyte # (Auto) 0.02 K/uL (0.00-0.02) Anion Gap 6.0 mmol/L (3-11) Est Creatinine Clear Calc Drug Dose 72.0 ml/min Estimated GFR () 88.3 Estimated GFR (Non- 76.2 BUN/Creatinine Ratio 21.5 (10-20) Calcium Level 9.3 mg/dl (8.5-10.1) Total Creatine Kinase 53 U/L (26-192) Creatine Kinase MB 1.1 ng/ml (0.5-3.6) Creatine Kinase MB Ratio 2.1 (0-3.0) Troponin I 0.164 ng/ml (0-0.045) Laboratory results per my review. Medications Administered Medications (Trade) Dose Ordered Sig/Amauri Route Start Time Stop Time Status Last Admin Dose Admin Aspirin 324 mg 324 mg NOW STAT PO 12/04/16 00:34 12/04/16 00:35 DC 12/04/16 00:46 324 MG Sodium Chloride (Nss 500ml) 500 ml @ 999 mls/hr Q31M STAT IV 12/04/16 00:34 12/04/16 01:04 DC 12/04/16 00:46 999 MLS/HR ECG Indication: chest pain Rate (beats per minute): 81 Rhythm: other (AV paced) Findings: LBBB, left axis deviation ED Course ED COURSE: Vital signs were reviewed and showed normal. The patients medical record was reviewed The above diagnostic studies were performed and reviewed. ED treatments and interventions as stated above. 2333: The patient was evaluated in room A10. A complete history and physical examination was performed. 0030: I discussed the patient's case with Dr. Owens, from [facility] Service. 0034: Sodium Chloride 500 ml @ 999 mls/hr IV, Aspirin 325 mg PO 0040: Upon reevaluation, the patient is resting comfortably.I discussed my findings with the patient and she understands and agrees with the treatment plan. Based on the patients age, coexisting illnesses, exam and lab findings the decision to treat as an inpatient was made. The patient remained stable while under my care. The patient will be evaluated for further management. Medical Decision Differential diagnoses includes but is not limited to acute coronary syndrome, myocardial infarction, pericarditis, pulmonary embolus, aortic dissection, pneumonia, pneumothorax, musculoskeletal, shingles, esophageal. Patient is a 75-year-old female who presents the ER for left-sided chest pain which felt like a tightness and she also had a sharp stabbing pain. Recent placement of pacemaker yesterday. Pain today was associated with right jaw pain and left arm pain. It has resolved upon presentation. She was given aspirin. She is on a Xa inhibitor. Chest x-ray was unremarkable along with CBC and BMP. Troponin was elevated at 0.1 which I would expect with a recent ablation and pacemaker placement. With her chest pain. It is difficult to discern whether this was truly cardiac although I favor likely secondary to the intervention yesterday. Patient is currently pain-free. She was given aspirin and admitted to internal medicine for observation. EKG was paced. Interrogation of pacemaker was unremarkable per report. Consults Time Called: 23 Consulting Physician: Dr. Owens, from [facility] Hospitalist Service Returned Call: 0030 I discussed the patient's case with Dr. Owens, from [facility] Service. Impression Primary Impression: Precordial chest pain Additional Impressions: Elevated troponin Status post placement of cardiac pacemaker Scribe Attestation The scribe's documentation has been prepared under my direction and personally reviewed by me in its entirety. I confirm that the note above accurately reflects all work, treatment, procedures, and medical decision making performed by me. Departure Information Dispostion Being Evaluated By Hospitalist Referrals Trang Allan D.O. (PCP) Patient Instructions My [place] [facility] Problem Qualifiers
[2016-12-03 23:58] LABS: BASO % 0.3 %; BASO ABS # 0.02 K/uL (0-0.2); COMPLETE YES; EOS % 5.6 %; HEMATOCRIT 41.3 % (37-47); IG% 0.3 %; LYMPH % 21.9 %; LYMPH ABS # 1.29 K/uL (1.2-3.4); MEAN CELL VOLUME 90.4 fL (80-100); MEAN CORPUSCULAR HEMOGLOBIN 29.5 pg (25-34); MEAN CORPUSCULAR HGB CONC 32.7 g/dl (32-36); MEAN PLATELET VOLUME 9.7 fL (7.4-10.4); MONO % 11.7 %; NEUT % 60.2 %; PLATELET COUNT 138 K/uL (130-400); RED BLOOD COUNT 4.57 M/uL (4.2-5.4); WHITE BLOOD COUNT 5.88 K/uL (4.8-10.8)
[2016-12-04] MEDS ORDERED: LEVA45AE INH (00:03)
[2016-12-04] MEDS ORDERED: MOME1AER5 INH (00:03)
[2016-12-04 00:07] LABS: BUN/CREATININE RATIO 21.5 (10-20); CALCIUM 9.3 mg/dl (8.5-10.1); CREATININE 0.76 mg/dl (0.60-1.20); POTASSIUM 4.1 mmol/L (3.5-5.1)
[2016-12-04 00:21] LABS: CKMB/CK RATIO 2.1 (0-3.0)
[2016-12-04] MEDS ORDERED: ASPIRIN 81 MG CHEW PO STA (00:34)
[2016-12-04] MEDS ORDERED: SODIUM CHLORIDE 0.9% 500ML 500 ML IV STA (00:34)
--- NOTE | 2016-12-04 01:26 | History and Physical ---
History & Physical Date & Time of Service: December 04, 2016 at 01:23 Chief Complaint: Chest Pain, Had Pace Maker Installed Yesterday Primary Care Physician: Trang Allan D.O. History of Present Illness Source: patient 75 yo F with hx of Paroxysmal Afib , hypothyroidism after partial thyroidectomy , bronchiectasis presented with ED with complain of chest pain . Pt had AV brayan ablation s/p dual chamber Medtronic permanent pacemaker placed by Dr Rust at [facility] pt mentions she felt much better after pacemaker ,for past several weeks she felt weak , fatigued for baseline bradycardia Her symptoms were resolved after pacemaker placement Pt got discharged form [facility] yesterday morning 12/03/16 Mentions right before discharged -she felt weak, fatigued , felt having palpitation , felt like irregular heart beat was very tired whole day at 8 pm pt started to experience sharp chest pain in her central chest with radiation to back felt mildly SOB no complain of palpitation , dizzy spell during the episode her symptoms were mostly resolved after arrival to ED during my time of interview , she was comfortable , chest pain free Past Medical/Surgical History Medical Problems: (1) Bronchiectasis Status: Chronic (2) GERD (gastroesophageal reflux disease) Status: Chronic (3) HLD (hyperlipidemia) Status: Chronic (4) Hypothyroidism Status: Chronic (5) Osteoarthritis Status: Chronic (6) Osteoporosis Status: Chronic (7) Paroxysmal a-fib Status: Chronic Surgical Problems: (1) H/O arthroscopic knee surgery Status: Chronic (2) H/O partial thyroidectomy Status: Chronic (3) History of appendectomy Status: Chronic (4) History of sinus surgery Status: Chronic (5) History of tonsillectomy Status: Chronic (6) History of tubal ligation Status: Chronic (7) Hx of cholecystectomy Status: Chronic Family History Patient reports no known family medical history. Social History Smoking Status: Never Smoker Drug Use: none Marital Status: Occupational Status: retired Immunizations History of Influenza Vaccine: Yes Influenza Vaccine Date: Apr 27, 2015 History of Tetanus Vaccine?: Yes Tetanus Immunization Date: Sep 16, 2008 History of Pneumococcal: Yes Pneumococcal Date: Jan 29, 2012 Allergies Coded Allergies: Iodinated Diagnostic Agents (Verified Allergy, Severe, ANAPHYLAXIS, ) Erythromycin (Verified Allergy, Intermediate, RASH, 12/03/16) Penicillins (Verified Allergy, Intermediate, RASH, 12/03/16) FROM CHILDHOOD Simvastatin (Verified Allergy, Intermediate, RASH, 12/03/16) Celecoxib (Verified Allergy, Mild, RASH, 12/03/16) Fish (Verified Allergy, Mild, GI SYMPTOMS, 12/03/16) Nystatin (Verified Allergy, Mild, RASH, 12/03/16) Moxifloxacin (Verified Adverse Reaction, Intermediate, HALUCINATIONS, 12/03) Uncoded Allergies: seafood (Allergy, Unknown, ANAPHYLAXIS, 11/13/16) patient reported that she is to have allergy testing done to confirm, reaction to contrast and does not eat any seafood Home Medications Scheduled Biotin (Biotin), 5 MG PO 3XWK Calcium Citrate-Vitamin D (Calcium Citrate + D), 1 TAB PO DAILY Levothyroxine Sodium (Levothyroxine Sodium), 100 MCG PO DAILY Mometasone Furoate (Inhalation (Asmanex Hfa), 1 PUFF INH HS Probiotic Product (Probiotic), 1 TAB PO DAILY Ranitidine (Zantac), 150 MG PO BID Rivaroxaban (Xarelto), 20 MG PO DAILY Rosuvastatin Calcium (Crestor), 5 MG PO 3XWK Sertraline (Zoloft), 100 MG PO DAILY Sotalol Hcl (Sotalol Hcl), 80 MG PO BID Scheduled PRN Levalbuterol Tartrate (Levalbuterol Tartrate Hfa), 2 PUFFS INH Q6H PRN for Wheezing Review of Systems Respiratory: + shortness of breath Cardiovascular: + chest pain Physical Exam Vital Signs Date Time Temp Pulse Resp B/P Pulse Ox O2 Delivery O2 Flow Rate FiO2 12/03/16 23:34 82 12/03/16 23:23 36.7 81 20 134/85 94 Room Air General Appearance: no apparent distress Head: normocephalic, atraumatic Eyes: normal inspection, PERRL, EOMI Neck: supple, no adenopathy, no JVD, no carotid bruits, trachea midline, + pertinent finding (healed thyroidectomy scar present on lower neck ) Respiratory/Chest: chest non-tender, lungs clear, normal breath sounds, no respiratory distress, no accessory muscle use Cardiovascular: regular rate, rhythm, no edema, no gallop, no JVD, no murmur, normal peripheral pulses Abdomen/GI: normal bowel sounds, non tender, soft Extremities/Musculoskelatal: normal inspection, no calf tenderness, normal capillary refill, no pedal edema, normal range of motion, + pertinent finding ( pacemaker insestion site on left upper chest wall appears to healing well , no drainage , no tenderness ) Neurologic/Psych: alert, normal mood/affect, oriented x 3 Skin: normal color, warm/dry, no rash Diagnostics Laboratory Results Results Past 24 Hours Test 12/03/16 23:40 Range/Units White Blood Count 5.88 4.8-10.8 K/uL Red Blood Count 4.57 4.2-5.4 M/uL Hemoglobin 13.5 12.0-16.0 g/dL Hematocrit 41.3 37-47 % Mean Corpuscular Volume 90.4 80-100 fL Mean Corpuscular Hemoglobin 29.5 25-34 pg Mean Corpuscular Hemoglobin Concent 32.7 32-36 g/dl Platelet Count 138 130-400 K/uL Mean Platelet Volume 9.7 7.4-10.4 fL Neutrophils (%) (Auto) 60.2 % Lymphocytes (%) (Auto) 21.9 % Monocytes (%) (Auto) 11.7 % Eosinophils (%) (Auto) 5.6 % Basophils (%) (Auto) 0.3 % Neutrophils # (Auto) 3.53 1.4-6.5 K/uL Lymphocytes # (Auto) 1.29 1.2-3.4 K/uL Monocytes # (Auto) 0.69 0.11-0.59 K/uL Eosinophils # (Auto) 0.33 0-0.5 K/uL Basophils # (Auto) 0.02 0-0.2 K/uL RDW Standard Deviation 49.6 36.4-46.3 fL RDW Coefficient of Variation 15.0 11.5-14.5 % Immature Granulocyte % (Auto) 0.3 % Immature Granulocyte # (Auto) 0.02 0.00-0.02 K/uL Sodium Level 142 136-145 mmol/L Potassium Level 4.1 3.5-5.1 mmol/L Chloride Level 109 98-107 mmol/L Carbon Dioxide Level 27 21-32 mmol/L Anion Gap 6.0 3-11 mmol/L Blood Urea Nitrogen 16 7-18 mg/dl Creatinine 0.76 0.60-1.20 mg/dl Est Creatinine Clear Calc Drug Dose 72.0 ml/min Estimated GFR () 88.3 Estimated GFR (Non- 76.2 BUN/Creatinine Ratio 21.5 10-20 Random Glucose 101 70-99 mg/dl Calcium Level 9.3 8.5-10.1 mg/dl Total Creatine Kinase 53 26-192 U/L Creatine Kinase MB 1.1 0.5-3.6 ng/ml Creatine Kinase MB Ratio 2.1 0-3.0 Troponin I 0.164 0-0.045 ng/ml CXR normal EKG paced rhythm , Impression Assessment and Plan CHEST PAIN R/O ACS presented with symptom suggestive of angina symptom has resolved since arrival to ED mild elevation of troponin -possible due recent pacemaker placement follow serial trend ordered for ECHO cont aspirin , beta ernie , statin cardiology eval requested monitor in tele HX OF PAROXYSMAL AFIB hx of drug refractory paroxysmal afib Has DC Cardioversion on December 2015 has been on Sotalol recent admission to [facility] on 09/2016 with Afib RVR requiring DC cardioversion underwent AV junctional ablation and permanent pacemaker dual chamber pacemaker ( placement Medtronic ) by Dr Rust on 12/02/16 discharged form [facility] on 12/03/16 ordered for pacemaker interrogation cont Xarelto on sotalol Cardiology consulted HYPERLIPIDEMIA cont statin HYPOTHYROIDISM: post thyroidectomy cont Levothyroxine FULL CODE DVT PROPHYLAXIS : On Xarelto DISPOSITION : discharge home when medically stable Medicine follow up with Dr Allan Cardiology follow up with Dr Burrows Level of Care Med/Surg Resuscitation Status FULL RESUSCITATION VTE Prophylaxis VTE Risk Assessment Done? Y/N: Yes Risk Level: Moderate Given or contraindicated: Unfractionated heparin SQ Additional Copies To Trang Allan D.O. Kopinski, Thomas O.,
[2016-12-04] MEDS ORDERED: LEValbuterol HFA 15GM INHALER INH PRN (01:30)
[2016-12-04] MEDS ORDERED: ZOLPIDEM TARTRATE 5 MG TAB PO PRN (01:30)
[2016-12-04] MEDS ORDERED: MAGNESIUM HYDROXIDE SUSP 30 ML UDC PO PRN (01:30)
[2016-12-04] MEDS ORDERED: ACETAMINOPHEN 325 MG TAB PO PRN (01:30)
[2016-12-04] MEDS ORDERED: NITROGLYCERIN 0.4 MG SL PER TAB CHARGE SL PRN (01:30)
[2016-12-04] MEDS ORDERED: NON-FORMULARY MEDICATION (Biotin 5 MG) PO SCH (01:30)
[2016-12-04] MEDS ORDERED: ONDANSETRON INJ 2 MG/ML 2 ML VIAL IV PRN (01:30)
[2016-12-04] MEDS ORDERED: ALUMINUM/MAGNESIUM/SIMETH (MAALOX MAX) 30 ML UDC PO PRN (01:30)
[2016-12-04] MEDS ORDERED: POLYETHYLENE (MIRALAX) 17 GM PACK PO PRN (01:30)
[2016-12-04] MEDS ORDERED: ACETAMINOPHEN 325 MG TAB ONE (01:46)
[2016-12-04 02:10] VITALS: BP 155/95; PULSE 81; TEMP 36.5; O2SAT 96; Ht 172.7 cm; Wt 87.4 kg
[2016-12-04 04:13] VITALS: BP 111/71; PULSE 81; TEMP 36.5; O2SAT 96
[2016-12-04] MEDS ORDERED: HEPARIN SOD 5000 UNIT/0.5 ML CARP SQ SCH (06:00)
[2016-12-04] MEDS ORDERED: LEVOTHYROXINE 100 MCG TAB PO SCH (06:00)
--- NOTE | 2016-12-04 07:24 | DIAGNOSTIC IMAGING REPORT ---
SINGLE VIEW CHEST CLINICAL HISTORY: Atypical chest pain. FINDINGS: An AP, portable, upright chest radiograph is compared to study dated 11/22/2016 and correlated with chest CT dated 11/07/2016. The examination is degraded by portable technique and patient rotation. A 2-lead cardiac pacemaker is new from previous. This partially obscures the left upper chest. The heart is mildly enlarged and there is atherosclerotic calcification of the thoracic aorta. The pulmonary vasculature is noncongested. Linear densities are present both lung bases, and likely represent atelectasis versus scarring. The upper lungs appear clear. No large pleural effusion or pneumothorax is seen. The skeletal structures are osteopenic. The bony thorax is grossly intact. IMPRESSION: 1. A 2-lead cardiac pacemaker is new from previous. The heart is mildly enlarged and there is no radiographic evidence of congestive failure. 2. Linear airspace opacities at both lung bases likely represent scarring/atelectasis. Correlate clinically for evidence of a mild superimposed infectious/inflammatory pneumonitis. Electronically signed by: Inderjit Sal M.D. 12/04/2016 7:22 AM Dictated Date/Time: 12/04/2016 7:21 AM
[2016-12-04 08:21] LABS: CKMB/CK RATIO 2.7 (0-3.0)
[2016-12-04 08:39] VITALS: BP 124/78; PULSE 82; TEMP 36.4; O2SAT 94
[2016-12-04] MEDS ORDERED: RANITIDINE HCL 150 MG TAB PO SCH (09:00)
[2016-12-04] MEDS ORDERED: LACTOBACILLUS ACIDOPHILUS (FLORANEX) TAB PO SCH (09:00)
[2016-12-04] MEDS ORDERED: ROSUVASTATIN CALCIUM 10 MG TAB PO SCH (09:00)
[2016-12-04] MEDS ORDERED: SOTALOL HCL 80 MG TAB PO SCH (09:00)
[2016-12-04] MEDS ORDERED: CALCIUM 600MG + VIT D 400 IU TAB PO SCH (09:00)
[2016-12-04] MEDS ORDERED: SERTRALINE HCL 100 MG TAB PO SCH (09:00)
--- NOTE | 2016-12-04 10:20 | ECHOCARDIOGRAM REPORT ---
*NOTICE TO RECEIVING CONSTITUTION PARTY AGENCY This information is strictly Confidential and protected under [place] law. [place] law prohibits you from making any further disclosure of this information unless further disclosure is expressly permitted by the written consent of the person to whom it pertains or is authorized by law. A general authorization for the release of medical or other information is not sufficient for this purpose. Hospital accepts no responsibility if the information is made available to any other person, INCLUDING THE PATIENT. Interpretation Summary * Name: DAVIDE BARRIOS Study Date: 12/04/2016 07:21 AM BP: 111/71 mmHg * Patient Location: C.2T\S\S239\S\2 HR: 85 * : 1940 (M/d/yyyy) Gender: Female Height: 67 in * Age: 75 yrs Ethnicity: CA Weight: 191 lb * Ordering Physician: Terrie Owens * Referring Physician: Self, Referred * Performed By: Chayo Hsieh RCS * * Reason For Study: CHEST PAIN * BSA: 2.0 m2 * -- Conclusions -- * Compared to previous study of 09/18/16: RV pacemaker lead is now present, otherwise, unchanged. * Normal LV chamber size and wall thickness. * Normal LV systolic function, EF 65-70%. * No segmental left ventricular wall motion abnormalities are noted. * Grade II diastolic dysfunction. * No significant valvular pathology. * Moderate left atrial enlargement. * No pericardial effusion. Procedure Details * A complete two-dimensional transthoracic echocardiogram was performed (2D, M-mode, Doppler and color flow Doppler). Left Ventricle * The left ventricle is normal in size. * There is normal left ventricular wall thickness. * Left ventricular systolic function is normal. * No segmental left ventricular wall motion abnormalities are noted. * Ejection Fraction = 65-70%. Right Ventricle * The right ventricular cavity size is normal (basal dimension <4.2 cm in right ventricular apical 4-chamber view). * There is a pacemaker lead in the right ventricle. * The right ventricular systolic function is normal as assessed by tricuspid annular plane systolic excursion (TAPSE) (normal >1.5 cm). Atria * The left atrial size is normal. * Right atrial size is normal. * No ASD detected; PFO is not assessed. Mitral Valve * The mitral valve is normal in structure and function. Tricuspid Valve * The tricuspid valve is normal in structure and function. Aortic Valve * The aortic valve is normal in structure and function. Pulmonic Valve * The pulmonary valve is not well seen, but the Doppler examination is normal without significant 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 or stenosis. Great Vessels * The aortic root is normal size. Pericardium/Pleural * There is no pericardial effusion. Left Ventricular Diastolic Function * Diastolic dysfunction, Grade II (pseudonormalization pattern). MMode 2D Measurements and Calculations IVSd 1.0 cm IVSs 1.2 cm LVIDd 3.2 cm LVIDs 1.9 cm LVPWd 0.93 cm LVPWs 1.1 cm IVS/LVPW 1.1 FS 40.0 % EDV(Teich) 41.0 ml ESV(Teich) 11.5 ml EF(Teich) 72.0 % EDV(cubed) 32.8 ml ESV(cubed) 7.1 ml EF(cubed) 78.4 % % IVS thick 9.9 % % LVPW thick 21.2 % LV mass(C)d 88.8 grams LV mass(C)dI 44.8 grams/m\S\2 LV mass(C)s 56.2 grams LV mass(C)sI 28.4 grams/m\S\2 SV(Teich) 29.5 ml SI(Teich) 14.9 ml/m\S\2 SV(cubed) 25.7 ml SI(cubed) 13.0 ml/m\S\2 Ao root diam 2.8 cm Ao root area 6.0 cm\S\2 ACS 2.0 cm LA dimension 4.1 cm LA/Ao 1.5 LVOT diam 2.6 cm LVOT area 5.1 cm\S\2 LVAd ap4 25.1 cm\S\2 LVLd ap4 6.5 cm EDV(MOD-sp4) 77.5 ml EDV(sp4-el) 82.4 ml LVAs ap4 12.4 cm\S\2 LVLs ap4 5.5 cm ESV(MOD-sp4) 24.0 ml ESV(sp4-el) 23.5 ml EF(MOD-sp4) 69.0 % EF(sp4-el) 71.4 % LVAd ap2 26.6 cm\S\2 LVLd ap2 7.3 cm EDV(MOD-sp2) 77.8 ml EDV(sp2-el) 82.5 ml LVAs ap2 15.1 cm\S\2 LVLs ap2 6.0 cm ESV(MOD-sp2) 32.0 ml ESV(sp2-el) 32.4 ml EF(MOD-sp2) 58.8 % EF(sp2-el) 60.7 % LVLd %diff 10.9 % EDV(MOD-bp) 82.2 ml LVLs %diff 7.8 % ESV(MOD-bp) 28.6 ml EF(MOD-bp) 65.3 % SV(MOD-sp4) 53.5 ml SI(MOD-sp4) 27.0 ml/m\S\2 SV(MOD-sp2) 45.7 ml SI(MOD-sp2) 23.1 ml/m\S\2 SV(MOD-bp) 53.6 ml SI(MOD-bp) 27.1 ml/m\S\2 SV(sp4-el) 58.8 ml SI(sp4-el) 29.7 ml/m\S\2 SV(sp2-el) 50.1 ml SI(sp2-el) 25.3 ml/m\S\2 Doppler Measurements and Calculations MV E max balaji 82.0 cm/sec MV A max balaji 59.3 cm/sec MV E/A 1.4 MV P1/2t max balaji 72.2 cm/sec MV P1/2t 69.7 msec MVA(P1/2t) 3.2 cm\S\2 MV dec slope 303.7 cm/sec\S\2 MV dec time 0.19 sec Ao V2 max 118.9 cm/sec Ao max PG 5.7 mmHg Ao max PG (full) 2.0 mmHg SHANNAN(V,A) 4.1 cm\S\2 SHANNAN(V,D) 4.1 cm\S\2 LV V1 max PG 3.7 mmHg LV V1 max 96.0 cm/sec PA V2 max 100.0 cm/sec PA max PG 4.0 mmHg
--- NOTE | 2016-12-04 11:10 | Cardiology Consultation ---
Cardiology Consultation Date of Service December 04, 2016. (Marichuy Carranza, JASPREET) Cardiology Consultation Cardiology Consultation: Requesting Physician: Dr. Owens Attending Parts Counter Associate: Dr. Stewart HPI: Catracho Penn is a 75 year old female who was admitted to [facility] yesterday with complaints of chest pain. She typically follows with Dr. Gonzalez of our [facility] practice. She has a complex history of recent difficult to control atrial fibrillation, requiring multiple admissions and cardioversions, failing antiarrhythmic therapy with medication limited by underlying sinus bradycardia. She was subsequently evaluated by EP, Dr. Samayoa and underwent AV junction ablation and permanent pacemaker implantation on 12/02/16 at [facility]. She tolerated procedure without incident. She was discharged to home yesterday, 12/03 in usual state of health on home medications, with instructions to resume Xarelto last night. She reports feeling well post procedure with improvement in her fatigue and energy levels, almost immediate. Yesterday AM, prior to discharge, she noted fluttering sensation in her chest. AT that time she was off monitor and vitals were stable, so she was discharged. Yesterday afternoon, she reports feeling well. Then last evening she developed sharp/stabbing chest pain, located substernally , radiation to her right epigastric region and radiation to her back. Symptoms lasted approx 3 hours waxing and waning. She noted mild right jaw discomfort during this time with chest tightness as well. No SOB. No dizziness. She noted intermittent palpitations at this time. Thought she was back in afib. She came to ER for evaluation. Upon arrival to ER, symptoms resolved quickly. EKG demonstrated AV sequential pacing. Troponin mildly elevated at .1, consistent with pacemaker/ablation procedure 48 hours prior. Chest xray without pneumo or pleural effusions. Pacemaker interrogation demonstrated appropriate function/ battery longevity, lead impedance. No afib. No atrial or ventricular high rate episodes. At time of consult, patient feeling well. No recurrent chest pain since admission. Pacemaker incision site well approximated without erythema or drainage. No significant pain. No SOB. Anxious to go home. Offers no complaints at this time. History PAST MEDICAL HISTORY: 1. Recurrent symptomatic paroxysmal atrial fibrillation 2. High-risk features for cardiac embolic stroke with CHADS-VASc Score of 4 points. 3. Bronchiectasis 4. Dyslipidemia 5. Hypothyroidism 6. Gastric esophageal reflux disease 7. History of pancreatitis due to biliary obstruction 8. Osteoarthritis 9. Osteoporosis PAST SURGICAL HISTORY: 1. Arthroscopic knee surgery 2. Status post left knee replacement 2016 in [place] 3. Partial thyroidectomy 4. Appendectomy 5. Sinus surgery 6. Tonsillectomy 7. Tubal ligation FAMILY HISTORY: Mother of congestive heart failure and 92 years old Father survived abdominal aortic aneurysm repair passing away 9 years later with myocardial infarction. Brother with history of rheumatic fever as a child and also had atrial fibrillation. 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 A total of 10 systems reviewed and were otherwise negative. Allergies Coded Allergies: Iodinated Diagnostic Agents (Verified Allergy, Severe, ANAPHYLAXIS, 11/13/16 ) Erythromycin (Verified Allergy, Intermediate, RASH, 11/13/16) Penicillins (Verified Allergy, Intermediate, RASH, 11/13/16) FROM CHILDHOOD Simvastatin (Verified Allergy, Intermediate, RASH, 11/13/16) Celecoxib (Verified Allergy, Mild, RASH, 11/13/16) Nystatin (Verified Allergy, Mild, RASH, 11/13/16) Moxifloxacin (Verified Adverse Reaction, Intermediate, HALLUCINATIONS, 11/13) Uncoded Allergies: seafood (Allergy, Unknown, ANAPHYLAXIS, 11/13/16) patient reported that she is to have allergy testing done to confirm, reaction to contrast and does not eat any seafood Reported Home Medications Medications Dose Route/Sig Max Daily Dose Days Date Category Dose Instructions Asmanex Hfa (Mometasone Furoate (Inhalation) 200 Mcg/Act Aer 1 Puff INH HS 12/04/16 Reported Levalbuterol Tartrate Hfa (Levalbuterol Tartrate) 45 Mcg/Act Aer 2 Puffs INH Q6H PRN 12/04/16 Reported Calcium Citrate + D (Calcium Citrate-Vitamin D) 1 Tab Tab 1 Tab PO DAILY 11/13/16 Reported Probiotic (Probiotic Product) 1 Tab Tab 1 Tab PO DAILY 09/17/16 Reported Sotalol Hcl 80 Mg Tab 80 Mg PO BID 05/11/16 Reported Biotin 5 Mg Tab 5 Mg PO 3XWK 12/15/15 Reported TAKES FRIDAY/FRIDAY/FRIDAY Xarelto (Rivaroxaban) 20 Mg Tab 20 Mg PO DAILY 12/15/15 Reported Zoloft (Sertraline HCl) 100 Mg Tab 100 Mg PO DAILY 90 11/27/15 Reported Zantac (Ranitidine HCl) 150 Mg Tab 150 Mg PO BID 30 11/27/15 Reported Levothyroxine Sodium 100 Mcg Tab 100 Mcg PO DAILY 30 11/27/15 Reported Crestor (Rosuvastatin Calcium) 5 Mg Tab 5 Mg PO 3XWK 11/27/15 Reported EVERY FRIDAY/FRIDAY/FRIDAY Physical Exam Last 8 Hrs Date Time Temp Pulse Resp B/P Pulse Ox O2 Delivery O2 Flow Rate FiO2 12/04/16 08:39 36.4 82 20 124/78 94 12/04/16 08:00 Room Air 12/04/16 04:13 36.5 81 16 111/71 96 Room Air 12/04/16 02:10 36.5 81 20 155/95 96 Room Air 12/04/16 01:39 82 18 143/89 98 General Appearance: Alert and Oriented x3. NAD. Head: Normocephalic Atraumatic. Eyes: PERRLA, EOMI, conjunctiva and sclera clear Neck: Supple. No carotid bruits noted. No JVD. No HJD. Respiratory: Coarse bilateral expiratory breath sounds Cardiovascular: irregular rhythm, no murmurs Abdomen: Normal bowel sounds, soft nontender. no abdominal bruits. Extremities: No edema, no clubbing or cyanosis. distal pulses 2/4 bilaterally. Neuro: No focal deficits. Psychiatric: Normal affect. Data Labs - Last 24 Hours Test 12/03/16 23:40 12/04/16 07:25 White Blood Count 5.88 K/uL Red Blood Count 4.57 M/uL Hemoglobin 13.5 g/dL Hematocrit 41.3 % Mean Corpuscular Volume 90.4 fL Mean Corpuscular Hemoglobin 29.5 pg Mean Corpuscular Hemoglobin Concent 32.7 g/dl Platelet Count 138 K/uL Mean Platelet Volume 9.7 fL Neutrophils (%) (Auto) 60.2 % Lymphocytes (%) (Auto) 21.9 % Monocytes (%) (Auto) 11.7 % Eosinophils (%) (Auto) 5.6 % Basophils (%) (Auto) 0.3 % Neutrophils # (Auto) 3.53 K/uL Lymphocytes # (Auto) 1.29 K/uL Monocytes # (Auto) 0.69 K/uL Eosinophils # (Auto) 0.33 K/uL Basophils # (Auto) 0.02 K/uL RDW Standard Deviation 49.6 fL RDW Coefficient of Variation 15.0 % Immature Granulocyte % (Auto) 0.3 % Immature Granulocyte # (Auto) 0.02 K/uL Sodium Level 142 mmol/L Potassium Level 4.1 mmol/L Chloride Level 109 mmol/L Carbon Dioxide Level 27 mmol/L Anion Gap 6.0 mmol/L Blood Urea Nitrogen 16 mg/dl Creatinine 0.76 mg/dl Est Creatinine Clear Calc Drug Dose 72.0 ml/min Estimated GFR () 88.3 Estimated GFR (Non- 76.2 BUN/Creatinine Ratio 21.5 Random Glucose 101 mg/dl Calcium Level 9.3 mg/dl Total Creatine Kinase 53 U/L 44 U/L Creatine Kinase MB 1.1 ng/ml 1.2 ng/ml Creatine Kinase MB Ratio 2.1 2.7 Troponin I 0.164 ng/ml 0.126 ng/ml EKG on admission: AV dual-paced rhythm Abnormal ECG When compared with ECG of 16-NOV-2016 10:34, Electronic ventricular pacemaker has replaced Sinus rhythm Vent. rate has increased BY 27 BPM Chest xray reviewed: IMPRESSION: 1. A 2-lead cardiac pacemaker is new from previous. The heart is mildly enlarged and there is no radiographic evidence of congestive failure. 2. Linear airspace opacities at both lung bases likely represent scarring/atelectasis. Correlate clinically for evidence of a mild superimposed infectious/inflammatory pneumonitis. Pacemaker interrogation performed this admission: stable lead impedance, battery longevity. No high atrial or ventricular rate episodes. Telemetry reviewed: AV sequential pacing. Prior data reviewed - Echocardiogram reviewed, from September 2016: Conclusions -- The left ventricle is normal in size. There is borderline concentric left ventricular hypertrophy. The left ventricular wall motion is normal. Left ventricular systolic function is normal. Ejection Fraction = 65-70%. The left atrium is moderately dilated. There is trace mitral 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. There is mild tricuspid 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. Pharmacologic nuclear stress test in March 2016 - Interpretation Summary Lexiscan nuclear cardiac stress test negative for ischemia. Gated SPECT images reveals normal myocardial thickening and wall motion. The LV ejection fraction is calculated at 77%. Assessment: 75-year-old female 1. Atypical chest pain - resolved without recurrence. Normal Echo. No evidence of pericardial effusion post pacemaker. ? Musculoskeltal vs GERD. Negative dobutamine stress echo 6 months ago. 2. S/P AV brayan ablation with dual chamber pacemaker implant on 12/02/16 3. Paroxysmal atrial fibrillation - s/p AV brayan ablation 4. Mildly elevated troponin - consistent with ablation/pacemaker procedure 48 hours ago. Not indicative of ACS Plan: Normal echo. Normal pacemaker interrogation. No pneumo on chest xray. Reassurance provided. Continue current home medications. No changes were made. Patient to f/u in 1 week as scheduled for device recheck. Case discussed with Dr. Stewart. Stable cardiac signs/symptoms for discharge today. (Marichuy Carranza PA-C) Pt seen and examined, agree with findings and assessment as per Marichuy Aceves. Atypical chest pain, resolved. Normal echo, cxr and device interrogation. Very recent negative stress test. No further testing necessary. Ok to d/c to home. No medication changes. (Sam Stewart, D.O.)
[2016-12-04 12:05] VITALS: BP_SYST 113; BP_SYST 134; BP_DIAS 65; BP_DIAS 82; PULSE 61; PULSE 87; TEMP 36.6; TEMP 37; O2SAT 95
--- NOTE | 2016-12-04 12:26 | Progress Note ---
Internal Med Progress Note Date of Service: December 04, 2016. Provider Documentation: SUBJECTIVE: Seen and examined at bedside. States feeling well. Denies chest pain, SOB, palpitations, dizziness. OBJECTIVE: Vital Signs-as noted below Physical Exam: Vitals signs as noted above General Appearance:Moderately built and nourished, no apparent distress Head: normocephalic, Atraumatic Eyes: normal inspection, EOMI, PERRL Neck: supple, Trachea midline Respiratory/Chest: Normal breath sounds, CTA Cardiovascular: S1, S2, No murmur Abdomen/GI:Soft, Non tender, Bowel sounds present Extremities/Musculoskelatal:normal inspection, no edema Neurologic/Psych:AAOX3, grossly no focal neurological deficits Skin: normal color, warm Lab data as noted below. ASSESSMENT & PLAN: ATYPICAL CHEST PAIN: Currently denies chest pain mild elevation of troponin Normal ECHO: no wall motion abnormality Normal pacemaker interrogation. CXR: No pneumo Continue aspirin, BB, statin Appreciate cardiology input Continue to monitor in tele Needs cardiology f/u in 1 week for device recheck. H/O P.AFIB Had DC Cardioversion in December 2015 continue Sotalol Got admitted to [facility] on 09/2016 with Afib RVR Underwent AV junctional ablation and permanent pacemaker dual chamber pacemaker ( placement Medtronic ) by Dr Rust on 12/02/16 Discharged form [facility] on 12/03/16 Normal pacemaker interrogation continue Xarelto Cardiology on board HYPERLIPIDEMIA cont statin HYPOTHYROIDISM: S/P thyroidectomy continue Levothyroxine CODE STATUS: FULL CODE DVT PX: On Xarelto DISPOSITION: Plan to discharge home today Medicine follow up with Dr Allan on 12/10/16 at 11:15am Cardiology follow up with Dr Burrows in 1 week as advised Vital Signs: Date Time Temp Pulse Resp B/P Pulse Ox O2 Delivery O2 Flow Rate FiO2 12/04/16 12:05 36.6 87 18 134/82 95 Room Air 12/04/16 08:39 36.4 82 20 124/78 94 12/04/16 08:00 Room Air 12/04/16 04:13 36.5 81 16 111/71 96 Room Air 12/04/16 02:10 36.5 81 20 155/95 96 Room Air 12/04/16 01:39 82 18 143/89 98 12/03/16 23:34 82 12/03/16 23:23 36.7 81 20 134/85 94 Room Air Lab Results: Results Past 24 Hours Test 12/03/16 23:40 12/04/16 07:25 Range/Units White Blood Count 5.88 4.8-10.8 K/uL Red Blood Count 4.57 4.2-5.4 M/uL Hemoglobin 13.5 12.0-16.0 g/dL Hematocrit 41.3 37-47 % Mean Corpuscular Volume 90.4 80-100 fL Mean Corpuscular Hemoglobin 29.5 25-34 pg Mean Corpuscular Hemoglobin Concent 32.7 32-36 g/dl Platelet Count 138 130-400 K/uL Mean Platelet Volume 9.7 7.4-10.4 fL Neutrophils (%) (Auto) 60.2 % Lymphocytes (%) (Auto) 21.9 % Monocytes (%) (Auto) 11.7 % Eosinophils (%) (Auto) 5.6 % Basophils (%) (Auto) 0.3 % Neutrophils # (Auto) 3.53 1.4-6.5 K/uL Lymphocytes # (Auto) 1.29 1.2-3.4 K/uL Monocytes # (Auto) 0.69 0.11-0.59 K/uL Eosinophils # (Auto) 0.33 0-0.5 K/uL Basophils # (Auto) 0.02 0-0.2 K/uL RDW Standard Deviation 49.6 36.4-46.3 fL RDW Coefficient of Variation 15.0 11.5-14.5 % Immature Granulocyte % (Auto) 0.3 % Immature Granulocyte # (Auto) 0.02 0.00-0.02 K/uL Sodium Level 142 136-145 mmol/L Potassium Level 4.1 3.5-5.1 mmol/L Chloride Level 109 98-107 mmol/L Carbon Dioxide Level 27 21-32 mmol/L Anion Gap 6.0 3-11 mmol/L Blood Urea Nitrogen 16 7-18 mg/dl Creatinine 0.76 0.60-1.20 mg/dl Est Creatinine Clear Calc Drug Dose 72.0 ml/min Estimated GFR () 88.3 Estimated GFR (Non- 76.2 BUN/Creatinine Ratio 21.5 10-20 Random Glucose 101 70-99 mg/dl Calcium Level 9.3 8.5-10.1 mg/dl Total Creatine Kinase 53 44 26-192 U/L Creatine Kinase MB 1.1 1.2 0.5-3.6 ng/ml Creatine Kinase MB Ratio 2.1 2.7 0-3.0 Troponin I 0.164 0.126 0-0.045 ng/ml
--- NOTE | 2016-12-04 12:50 | Discharge Summary ---
Discharge Summary Date of Service December 04, 2016. Discharge Summary Admission Date: December 04, 2016 at 00:59 Discharge Date: December 04, 2016 Discharge Disposition: Home Principal Diagnosis: Atypical Chest Pain Procedures: CXR: 1. A 2-lead cardiac pacemaker is new from previous. The heart is mildly enlarged and there is no radiographic evidence of congestive failure. 2. Linear airspace opacities at both lung bases likely represent scarring/atelectasis. Correlate clinically for evidence of a mild superimposed infectious/inflammatory pneumonitis. ECHO: * Compared to previous study of 09/18/16: RV pacemaker lead is now present, otherwise, unchanged. * Normal LV chamber size and wall thickness. * Normal LV systolic function, EF 65-70%. * No segmental left ventricular wall motion abnormalities are noted. * Grade II diastolic dysfunction. * No significant valvular pathology. * Moderate left atrial enlargement. * No pericardial effusion. Consultations: Cardiology Pending Studies/Follow-Up: Medicine follow up with Dr Allan on 12/10/16 at 11:15am Cardiology follow up with Dr Burrows in 1 week as advised Medication Reconciliation Continued Medications: Biotin (Biotin) 5 Mg Tab 5 MG PO 3XWK TAKES FRIDAY/FRIDAY/FRIDAY Calcium Citrate-Vitamin D (Calcium Citrate + D) 1 Tab Tab 1 TAB PO DAILY Levalbuterol Tartrate (Levalbuterol Tartrate Hfa) 45 Mcg/Act Aer 2 PUFFS INH Q6H PRN for Wheezing Levothyroxine Sodium (Levothyroxine Sodium) 100 Mcg Tab 100 MCG PO DAILY for 30 Days, #30 TAB 5 Refills Mometasone Furoate (Inhalation (Asmanex Hfa) 200 Mcg/Act Aer 1 PUFF INH HS Probiotic Product (Probiotic) 1 Tab Tab 1 TAB PO DAILY Ranitidine (Zantac) 150 Mg Tab 150 MG PO BID for 30 Days, #60 TAB 3 Refills Rivaroxaban (Xarelto) 20 Mg Tab 20 MG PO DAILY, TAB Rosuvastatin Calcium (Crestor) 5 Mg Tab 5 MG PO 3XWK, TAB 5 Refills EVERY FRIDAY/FRIDAY/FRIDAY Sertraline (Zoloft) 100 Mg Tab 100 MG PO DAILY for 90 Days, #90 TAB 1 Refill Sotalol Hcl (Sotalol Hcl) 80 Mg Tab 80 MG PO BID, TAB 5 Refills Admission Information HPI (per Admitting provider): 75 yo F with hx of Paroxysmal Afib , hypothyroidism after partial thyroidectomy , bronchiectasis presented with ED with complain of chest pain . Pt had AV brayan ablation s/p dual chamber Medtronic permanent pacemaker placed by Dr Rust at [facility] pt mentions she felt much better after pacemaker ,for past several weeks she felt weak , fatigued for baseline bradycardia Her symptoms were resolved after pacemaker placement Pt got discharged form [facility] yesterday morning 12/03/16 Mentions right before discharged -she felt weak, fatigued , felt having palpitation , felt like irregular heart beat was very tired whole day at 8 pm pt started to experience sharp chest pain in her central chest with radiation to back felt mildly SOB no complain of palpitation , dizzy spell during the episode her symptoms were mostly resolved after arrival to ED during my time of interview , she was comfortable , chest pain free Physical Exam (per Admitting): General Appearance: no apparent distress Head: normocephalic, atraumatic Eyes: normal inspection, PERRL, EOMI Neck: supple, no adenopathy, no JVD, no carotid bruits, trachea midline, + pertinent finding (healed thyroidectomy scar present on lower neck ) Respiratory/Chest: chest non-tender, lungs clear, normal breath sounds, no respiratory distress, no accessory muscle use Cardiovascular: regular rate, rhythm, no edema, no gallop, no JVD, no murmur , normal peripheral pulses Abdomen/GI: normal bowel sounds, non tender, soft Extremities/Musculoskelatal: normal inspection, no calf tenderness, normal capillary refill, no pedal edema, normal range of motion, + pertinent finding ( pacemaker insestion site on left upper chest wall appears to healing well , no drainage , no tenderness ) Neurologic/Psych: alert, normal mood/affect, oriented x 3 Skin: normal color, warm/dry, no rash Hospital Course ATYPICAL CHEST PAIN: Currently denies chest pain mild elevation of troponin Normal ECHO: no wall motion abnormality Normal pacemaker interrogation. CXR: No pneumo Continue aspirin, BB, statin Appreciate cardiology input Continue to monitor in tele Needs cardiology f/u in 1 week for device recheck. H/O P.AFIB Had DC Cardioversion in December 2015 continue Sotalol Got admitted to [facility] on 09/2016 with Afib RVR Underwent AV junctional ablation and permanent pacemaker dual chamber pacemaker ( placement Medtronic ) by Dr Rust on 12/02/16 Discharged form [facility] [place] [place] on 12/03/16 Normal pacemaker interrogation continue Xarelto Cardiology on board HYPERLIPIDEMIA cont statin HYPOTHYROIDISM: S/P thyroidectomy continue Levothyroxine CODE STATUS: FULL CODE DVT PX: On Xarelto DISPOSITION: Plan to discharge home today Medicine follow up with Dr Allna on 12/10/16 at 11:15am Cardiology follow up with Dr Burrows in 1 week as advised Total time spent on discharge = This includes examination of the patient, discharge planning, medication reconciliation, and communication with other providers. Discharge Instructions Discharge Instructions Date of Service December 04, 2016. Admission Reason for Admission: Chest Pain Discharge Discharge Diagnosis / Problem: Atypical Chest Pain Discharge Goals Goal(s): Decrease discomfort, Improve function Activity Recommendations Activity Limitations: resume your previous activity Exercise/Sports Limitations: as tolerated . Instructions / Follow-Up Instructions / Follow-Up Medicine follow up with Dr Allan on 12/10/16 at 11:15am Cardiology follow up with Dr Burrows in 1 week as advised Current Hospital Diet Patient's current hospital diet: AHA Diet (Heart Healthy) Discharge Diet Recommended Diet: AHA Diet (Heart Healthy) Pending Studies Studies pending at discharge: no Medical Emergencies . Who to Call and When: Medical Emergencies: If at any time you feel your situation is an emergency, please call 911 immediately. . Non-Emergent Contact Non-Emergency issues call your: Primary Care Provider, Frame Bender Call Non-Emergent contact if: you have a fever, your pain is not controlled, your pain is worsening, your pain is unusual for you, you have any medication questions . . "Provider Documentation" section prepared by Haroldo Lopez. . VTE Core Measure Inpt VTE Proph given/why not?: Unfractionated heparin SQ
[2016-12-04 13:05] VITALS: BP 134/82; PULSE 87; TEMP 36.6; O2SAT 95
[2016-12-04] MEDS ORDERED: RIVAROXABAN 10 MG TAB PO SCH (16:45)
[2017-02-22] MEDS ORDERED: CLC6 PO (11:42)
[2017-02-22] MEDS ORDERED: PRD20 PO (11:42)
== END 2016-12-04 13:28 | disposition home or self-care (01) | DRG 313 ==
LOC: ENRESERVTM → ENRESERVDT → C.EDB 23:22 → C.2T 12-04 00:59
PROVIDERS: ADMIT Hospitalist; ATTEND Internal Medicine
DX: R07.89 Other chest pain (principal); Z95.0 Presence of cardiac pacemaker; I48.0 Paroxysmal atrial fibrillation; K21.9 Gastro-esophageal reflux disease without esophagitis; E03.9 Hypothyroidism, unspecified; E78.5 Hyperlipidemia, unspecified; Z79.01 Long term (current) use of anticoagulants; Z79.899 Other long term (current) drug therapy

== ENCOUNTER 2017-02-21 08:23 | Inpatient (IN) | payer OTHER ==
[2017-02-21] VITALS (38 sets, daily range): BP systolic 86–153; BP diastolic 50–119; PULSE 70–85; TEMP 36.8; O2SAT 94–98; Ht 172.7 cm; Wt 87.9 kg
[~2017-02-21] VITALS: Ht 172.7 cm; Wt 87.9 kg
[2017-02-21] MEDS ORDERED: TIOT1SPR INH (08:41)
[2017-02-21] MEDS ORDERED: FLUT0.15 NAE (08:44)
[2017-02-21] MEDS ORDERED: RANITIDINE HCL 50 MG/100 ML D5W IV STA (09:02)
[2017-02-21 09:14] LABS: BASO % 0.2 %; BASO ABS # 0.02 K/uL (0-0.2); COMPLETE YES; EOS % 1.3 %; IG% 0.2 %; LYMPH % 13.4 %; LYMPH ABS # 1.11 K/uL (1.2-3.4); MEAN CELL VOLUME 92.2 fL (80-100); MEAN CORPUSCULAR HGB CONC 32.6 g/dl (32-36); MEAN PLATELET VOLUME 9.6 fL (7.4-10.4); MONO % 7.2 %; NEUT % 77.7 %; PLATELET COUNT 183 K/uL (130-400); RED BLOOD COUNT 4.23 M/uL (4.2-5.4); WHITE BLOOD COUNT 8.28 K/uL (4.8-10.8)
[2017-02-21 09:33] LABS: ALT/SGPT 22 U/L (12-78); BLOOD UREA NITROGEN 16 mg/dl (7-18); BUN/CREATININE RATIO 19.3 (10-20); CARBON DIOXIDE 24 mmol/L (21-32); CHLORIDE 108 mmol/L (98-107); CREATININE 0.84 mg/dl (0.60-1.20); GLUCOSE 134 mg/dl (70-99); POTASSIUM 4.5 mmol/L (3.5-5.1); SODIUM 139 mmol/L (136-145)
--- NOTE | 2017-02-21 09:33 | DIAGNOSTIC IMAGING REPORT ---
CHEST ONE VIEW PORTABLE CLINICAL HISTORY: Atypical chest pain COMPARISON STUDY: 12/03/2016 FINDINGS: The heart is borderline enlarged. There is no failure. There is no focal pulmonary consolidation. There are bibasilar opacities, likely representing subsegmental atelectasis. There is a left subclavian dual-chamber central venous pacemaker.[ IMPRESSION: Bibasal atelectatic changes. No evidence of failure. No evidence of lobar consolidation Electronically signed by: Jagdeep Thayer M.D. 02/21/2017 9:32 AM Dictated Date/Time: 02/21/2017 9:32 AM
[2017-02-21 09:38] LABS: ALB/GLOB RATIO 1.1 (0.9-2); ALKALINE PHOSPHATASE 53 U/L (45-117); AST/SGOT 21 U/L (15-37)
[2017-02-21] MEDS: ONDANSETRON INJ 2 MG/ML 2 ML VIAL IV PRN ×2 (09:52→10:54)
[2017-02-21] MEDS ORDERED: SODIUM CHLORIDE 0.9% 1000ML 1,000 ML IV ONE ×2 (10:15→10:30)
--- NOTE | 2017-02-21 10:50 | DIAGNOSTIC IMAGING REPORT ---
(CHEST) THORAX WITHOUT CT DOSE: 345.72 mGy.cm HISTORY: Pain substernal chest pain TECHNIQUE: Multiaxial CT images of the chest were performed without contrast. A dose lowering technique was utilized adhering to the principles of ALARA. COMPARISON: Chest CT 11/07/2016. Routine chest 12/03/2016 FINDINGS: Interval development of bibasilar parenchymal infiltrative change. Interval development of pericardial effusion. Maximum pericardial effusion thickness is 1 cm. Trace amount of intravenous air over the right pulmonary apex most likely iatrogenic. Several small mediastinal and/or hilar nodes. Limited evaluation the upper abdomen is unremarkable. The esophagus appears to be unremarkable within limitations of an unenhanced scan. Interval placement of a bipolar cardiac pacemaker with the leads potentially traversing the myocardium and extending into the pericardial fat region IMPRESSION: 1. Bibasilar parenchymal infiltrates. 2. Interval development of the pericardial effusion with thickness of 1 cm. 3. Pacemaker leads potentially traversing the ventricular thickness with the tip of the pericardial fat. The above report was generated using voice recognition software. It may contain grammatical, syntax or spelling errors. Electronically signed by: Garry Torres M.D. 02/21/2017 10:49 AM Dictated Date/Time: 02/21/2017 10:38 AM
[2017-02-21] MEDS ORDERED: PROMETHAZINE HCL INJ 12.5 MG in SODIUM CHLORIDE 0.9% 50ML 50 ML IV STA (11:38)
[2017-02-21] MEDS ORDERED: PERFLUTREN LIPID MICROSPHERE (DEFINITY) IV ONE (11:56)
[2017-02-21] MEDS ORDERED: DOPamine 400MG / 250ML D5W ONE (12:32)
[2017-02-21] MEDS ORDERED: METOCLOPRAMIDE HCL INJ 5 MG/ML 2 ML VIAL IV ONE (12:51)
[2017-02-21] MEDS ORDERED: METOCLOPRAMIDE HCL INJ 5 MG/ML 2 ML VIAL ONE (12:51)
--- NOTE | 2017-02-21 12:56 | CARDIOLOGY CONSULTATION ---
DATE OF CONSULTATION: 02/21/2017 REFERRING PHYSICIAN: [facility] priscilla. REASON FOR CONSULTATION: Pericardial effusion. HISTORY OF PRESENT ILLNESS: This is a 76-year-old female who had symptomatic atrial fibrillation and then in November of this year, underwent a His bundle ablation with insertion of a permanent dual-chamber pacemaker. According to our records, she was seen at the end of January by Dr. Stefan Samayoa at [facility], who performed the procedure at [facility] and at that time, everything was going well. She presented to the Emergency Department this morning with chest pain, which she describes as GERD-like symptoms. It was severe in nature and enough to make her want to come to the Emergency Department. After arrival here, she had a CT of the chest without contrast because she has AN ALLERGY TO IODINATED CONTRAST DYE, which showed to my review a small to moderate size pericardial effusion. There is also a suggestion by the report and again by my review that the right ventricular lead may be out into the pericardial space. The patient, after arrival to the Emergency Department and having the CT, did drop her blood pressure and had to have fluid resuscitation. After several liters of fluid, her blood pressure has stabilized. She has no ongoing chest pain. She has been noticing some dark stools for the last few days and had diarrhea this morning. An echocardiogram was obtained in the Emergency Department, which I did review. She has a small to moderate sized pericardial effusion without evidence of tamponade. LV and RV function are normal and there is no significant valvular pathology. Other findings are normal troponin, hemoglobin of 12.7 and WBC count of 8.28 with a normal differential. ALLERGIES: THE PATIENT HAS MULTIPLE ALLERGIES, WHICH ARE LISTED AND YOU SHOULD REVIEW. SHE HAS AN ALLERGY TO CONTRAST DYE, FISH AND SHELLFISH AND IN ADDITION TO MULTIPLE ANTIBIOTICS. PAST MEDICAL HISTORY: As outlined above, the patient has a history of symptomatic atrial fibrillation and has undergone a His bundle ablation followed by permanent pacemaker this year. She also has a history of GERD and bronchiectasis. No history of diabetes or coronary artery disease. No previous strokes or kidney disease. SOCIAL HISTORY: She is a nonsmoker. FAMILY MEDICAL HISTORY: Noncontributory. REVIEW OF SYSTEMS: A 10-point review of systems is negative except for the history of chief complaint. PHYSICAL EXAMINATION: GENERAL: She is alert and oriented. VITAL SIGNS: Blood pressure is 100/60 and pulse is regular at 60 beats per minute. She has a paced rhythm. She is afebrile. HEENT: She wears corrective lenses. Mucous membranes are moist. The carotids have good upstrokes bilaterally. RESPIRATORY: Breath sounds equal bilaterally and clear to auscultation. CARDIOVASCULAR: Heart has a regular rhythm. Normal S1 and S2. No S3 or S4. No cardiac rubs or murmurs. ABDOMEN: Soft and nontender without organomegaly. EXTREMITIES: Free of edema, digit clubbing, or cyanosis. NEUROLOGIC: Grossly intact. SKIN: Warm to touch. LYMPH NODES: Negative to palpation. IMPRESSION: 1. Chest pain of undetermined etiology. 2. Gastroesophageal reflux disease, rule out gastrointestinal bleeding. 3. Pericardial effusion. 4. Status post His bundle ablation with permanent pacemaker implant in November 2016. 5. Paroxysmal atrial fibrillation. 6. Bronchiectasis. RECOMMENDATIONS: I believe the patient should undergo a contrast enhanced CT of the chest to rule out a dissection and to further help evaluate the pericardial effusion. SHE IS ALLERGIC TO SHELLFISH AND IODINATED CONTRAST DYE, but I think we should prep her with steroids and H2 ernie and Benadryl and try to proceed with that study if possible. The echocardiogram does not indicate cardiac tamponade. I have ordered a sed rate, SANJUANITA and a Lyme's titer. She will have her pacemaker interrogated to see if the resistance on the right ventricular lead has gone up, which would indicate a perforation. I suspect that her hypotension, however, may not be related and the pericardial effusion is an incidental finding. She may have had a small perforation of the right ventricular lead at placement, but it was clinically nonsignificant except for causing the small pericardial effusion. We will follow along with you during her hospital stay and provide additional recommendations following the above.
[2017-02-21] MEDS ORDERED: METOCLOPRAMIDE HCL INJ 5 MG/ML 2 ML VIAL IV PRN (13:00)
--- NOTE | 2017-02-21 13:25 | Critical Care Consultation ---
Critical Care Consultation Date of Consultation: Feb 21, 2017. Attending Physician: Reason for Consultation: Hypotension History of Present Illness she presented to the ER with lethargy, chest pain and Nausia , no vomiting, no abdominal pain, no weakness, felt dizziness with upright position, in the ED, she was found to be cold and clammy in the periphery, work up done revealing hypotension with SBP 60, labs were normal and chest ct without IV contrast due to anaphylaxis allergy showed multiple atelectasis with bronchiectatic areas. the pt was confused when I saw her and could not give me a good ROS, treated for nausea and little drowsy. however, she mentioned her son managing her meds and she denies any changes in medications, no near syncopal episodes, no palpitation, appeared with slow response. Past Medical/Surgical History Afib s/[place] in 12/07/16 at [facility] [place], Hypothyroidism, GERD with Hiatal hernia, HTN, Family History Patient reports no known family medical history. Social History Smoking Status: Former Smoker Alcohol Use: none Drug Use: none Marital Status: Housing Status: lives with family Occupation Status: retired Allergies Coded Allergies: Iodinated Diagnostic Agents (Verified Allergy, Severe, ANAPHYLAXIS, ) Shellfish (Verified Allergy, Severe, "Seafood" -- ANAPHYLAXIS, 02/21/17) Erythromycin (Verified Allergy, Intermediate, RASH, 02/21/17) Penicillins (Verified Allergy, Intermediate, RASH, 02/21/17) FROM CHILDHOOD Simvastatin (Verified Allergy, Intermediate, RASH, 02/21/17) Celecoxib (Verified Allergy, Mild, RASH, 02/21/17) Fish (Verified Allergy, Mild, GI SYMPTOMS, 02/21/17) Nystatin (Verified Allergy, Mild, RASH, 02/21/17) Moxifloxacin (Verified Adverse Reaction, Intermediate, HALUCINATIONS, 02/21) Home Medications Scheduled Biotin (Biotin), 5 MG PO 3XWK Calcium Citrate-Vitamin D (Calcium Citrate + D), 1 TAB PO DAILY Fluticasone Propionate (Nasal) (Flonase Allergy Relief), 1 SPRAY INH UD Levothyroxine Sodium (Levothyroxine Sodium), 100 MCG PO QAM Probiotic Product (Probiotic), 1 TAB PO 3XWK Ranitidine (Zantac), 150 MG PO BID Rivaroxaban (Xarelto), 20 MG PO PM Rosuvastatin Calcium (Crestor), 5 MG PO 3XWK Sertraline (Zoloft), 100 MG PO HS Sotalol Hcl (Sotalol Hcl), 80 MG PO BID Tiotropium Shiner (Spiriva Respimat), 2 PUFF INH QAM Current Inpatient Medications Current Inpatient Medications Medications (Trade) Dose Ordered Sig/Amauri Route Start Time Stop Time Status Last Admin Dose Admin Ondansetron HCl (Zofran Inj) 4 mg Q1HWA PRN IV 02/21/17 10:00 03/23/17 09:59 02/21/17 10:54 4 MG Review of Systems Constitutional: + fatigue, No fever, No chills, No sweats, No weight loss, No weakness, No problem reported Eyes: No worsening of vision, No eye pain, No redness, No discharge, No diplopia, No problem reported ENT: No hearing loss, No unusual epistaxis, No nasal symptoms, No sore throat, No tinnitus, No dental problems, No trouble swallowing, No problem reported Respiratory: No cough, No sputum, No wheezing, No shortness of breath, No dyspnea on exertion, No dyspnea at rest, No hemoptysis, No problem reported Cardiovascular: + chest pain, + orthopnea, No PND, No edema, No claudication, No palpitations, No problem reported Abdomen: No pain, No nausea, No vomiting, No diarrhea, No constipation, No GI bleeding, No problem reported Musculoskeletal: No joint pain, No muscle pain, No swelling, No calf pain, No problem reported Neurologic: No memory loss, No paralysis, No weakness, No numbness/tingling, No vertigo, No balance problems, No problem reported Psychiatric: + problem reported Endocrine: + fatigue, + excessive thirst Hematologic / Lymphatic: No abnormal bleeding/bruising, No clotting problems, No swollen lymph nodes, No night sweats, No problem reported Integumentary: No rash, No itch, No new/changing skin lesions, No color change , No bleeding, No problem reported Allergic / Immunologic: + problem reported Physical Exam Date Time Temp Pulse Resp B/P (MAP) Pulse Ox O2 Delivery O2 Flow Rate FiO2 02/21/17 12:18 71 20 83/61 96 Room Air 02/21/17 12:09 74 20 76/50 93 Room Air 02/21/17 11:55 70 22 82/55 94 Room Air 02/21/17 11:35 70 20 103/77 93 Room Air 02/21/17 11:25 74 23 86/55 96 Room Air 02/21/17 11:15 71 18 85/67 96 Room Air 02/21/17 11:02 71 20 67/40 95 Room Air 02/21/17 10:45 75 22 75/50 96 Room Air 02/21/17 10:35 75 22 66/51 96 Room Air 02/21/17 10:25 71 22 67/48 95 Room Air 02/21/17 10:10 71 22 67/45 93 Room Air 02/21/17 10:07 71 22 71/46 97 Room Air 02/21/17 09:55 70 20 62/44 93 Room Air 02/21/17 09:40 73 20 80/43 94 Room Air 02/21/17 09:24 71 20 71/53 95 Room Air 69/48 73/48 02/21/17 09:23 95 Room Air 02/21/17 08:43 81 02/21/17 08:26 36.4 79 16 91/60 94 Room Air the pt has slow stroke JVP, paced hr at 70, thyroidectomy scar, lungs with rhonchi bilaterally, abdomen is benign except with the epigastric pain, no rebound , BS are positive. positive strong pulses in the radial and the pedals. neuro lethargic but confused, following commands. General Appearance: in pain, mild distress Eyes: PERRLA, no discharge, EOMI ENT: other Neck: no tenderness, other Respiratory: rhonchi Cardiovasular: regular rate/rhythm, normal S1S2, JVD, other Abdomen: non tender, no rebound, no masses Upper Extremities: no edema, other Lower Extremities: no edema, other Pulses: radial (R) (2+), radial (L) (2+), dorsalis pedis (R) (2+), dorsalis pedis (L) (2+) Neuro: alert, confused Psychiatric: depressed Laboratory Results Last 24 Hours Test 02/21/17 08:55 02/21/17 10:27 02/21/17 12:19 White Blood Count 8.28 K/uL Red Blood Count 4.23 M/uL Hemoglobin 12.7 g/dL Hematocrit 39.0 % Mean Corpuscular Volume 92.2 fL Mean Corpuscular Hemoglobin 30.0 pg Mean Corpuscular Hemoglobin Concent 32.6 g/dl Platelet Count 183 K/uL Mean Platelet Volume 9.6 fL Neutrophils (%) (Auto) 77.7 % Lymphocytes (%) (Auto) 13.4 % Monocytes (%) (Auto) 7.2 % Eosinophils (%) (Auto) 1.3 % Basophils (%) (Auto) 0.2 % Neutrophils # (Auto) 6.42 K/uL Lymphocytes # (Auto) 1.11 K/uL Monocytes # (Auto) 0.60 K/uL Eosinophils # (Auto) 0.11 K/uL Basophils # (Auto) 0.02 K/uL RDW Standard Deviation 48.6 fL RDW Coefficient of Variation 14.4 % Immature Granulocyte % (Auto) 0.2 % Immature Granulocyte # (Auto) 0.02 K/uL Erythrocyte Sedimentation Rate 14 mm/hr Sodium Level 139 mmol/L Potassium Level 4.5 mmol/L Chloride Level 108 mmol/L Carbon Dioxide Level 24 mmol/L Anion Gap 7.0 mmol/L Blood Urea Nitrogen 16 mg/dl Creatinine 0.84 mg/dl Est Creatinine Clear Calc Drug Dose 62.8 ml/min Estimated GFR () 77.7 Estimated GFR (Non- 67.0 BUN/Creatinine Ratio 19.3 Random Glucose 134 mg/dl Calcium Level 9.0 mg/dl Total Bilirubin 0.6 mg/dl Aspartate Amino Transf (AST/SGOT) 21 U/L Alanine Aminotransferase (ALT/SGPT) 22 U/L Alkaline Phosphatase 53 U/L Troponin I < 0.015 ng/ml Total Protein 6.8 gm/dl Albumin 3.6 gm/dl Globulin 3.2 gm/dl Albumin/Globulin Ratio 1.1 Bedside Lactic Acid Venous 1.30 mmol/L Diagnostic Results chest CT reviewed personally showing multiple areas of atelectasis. no infiltrates, non contrast ct. , small pericardial effusion. Echo done by Dr. Qureshi, showed pericardial effusion, small, no tamponade physiology. labs were reviewed with normal troponin, normal labs literally. Assessment & Plan female presented with severe chest pain , now with dry mucosa , hypotension, totally paced, pain is radiating to the shoulder blades in the back , drowsy ( Iatrogenic), no evidence of ACS at this point, pericardial effusion could be related to recent PM placement but mostly related to hypothyroidism, I am concerned about Myxedema, vs Atenolol unintentional OD, arotic is concerning but the pt had anaphylaxis with contrast and had PM which exclude her from MRA, discussed with Dr. Qureshi from cardiology and felt that TWIN will not help or be safe while she is hypotensive. Plan: 1- admit to the ICU. 2- start IVF and Dopamine for now. 3- check cortisol and thyroid panel. 4- start steroids and Thyroxine IV empirically. 5- will place [place] if needed. 6- continue with trop series. 7- hold off her BP meds from home. 8- DVT prophylaxis. 9- I dont see any infectious process at this point, will hold off on the Abx. 10- I will update the family once they are available at the bed side. case discussed with Dr. Obando , Dr. Qureshi and the ED staff. CCT 45 min.
[2017-02-21] MEDS ORDERED: ACETAMINOPHEN 325 MG TAB PO PRN (13:30)
[2017-02-21 13:32] LABS: LYME DISEASE AB IGM NEG (NEG)
[2017-02-21 13:33] LABS: LYME DISEASE AB IGG NEG (NEG)
[2017-02-21 13:44] LABS: THYROID STIMULATING HORMONE 2.89 uIu/ml (0.300-4.500)
--- NOTE | 2017-02-21 13:54 | History and Physical ---
History & Physical Date & Time of Service: Feb 21, 2017 at 13:54 Chief Complaint: Gi Assessment Primary Care Physician: Trang Allan D.O. History of Present Illness Source: patient, clinic records 76 year old female with history of Complete Heart Block, s/p Pacemaker Placement , Paroxysmal Atrial Fibrillation on Xarelto, s/p Ablation, Bronchiectasis, Hypothyroidism, presenting with chest pain starting yesterday. Patient was at her usual state of health until yesterday, when she started to have chest discomfort, cannot remember if sharp or pressure, radiating to the neck, and her back, lasting for few hourse. Had some mild nausea and shortness of breath, but no dizziness, diaphoresis. Pain subsided at night. This morning, the same chest pain recurred, prompting consult to the ER. At the ER, patient was noted to be hypotensive and had to be started on Dopamine. CT chest: possible bibasilar infiltrates, pericardial effusion 1cm. EKG no signs of acute ischemia, cardiac markers negative. On exam, patient was initially nauseated, relieved with Reglan. Not in distress, still reports moderate chest discomfort. Mentions diarrhea for the past few days, with occasional melena. Denies cough, dyspnea, changes with urination. No other symptoms. Past Medical/Surgical History Medical Problems: (1) Bronchiectasis Status: Chronic (2) GERD (gastroesophageal reflux disease) Status: Chronic (3) HLD (hyperlipidemia) Status: Chronic (4) Hypothyroidism Status: Chronic (5) Osteoarthritis Status: Chronic (6) Osteoporosis Status: Chronic (7) Paroxysmal a-fib Status: Chronic Surgical Problems: (1) H/O arthroscopic knee surgery Status: Chronic (2) H/O partial thyroidectomy Status: Chronic (3) History of appendectomy Status: Chronic (4) History of sinus surgery Status: Chronic (5) History of tonsillectomy Status: Chronic (6) History of tubal ligation Status: Chronic (7) Hx of cholecystectomy Status: Chronic Family History Patient reports no known family medical history. Social History Smoking Status: Former Smoker Alcohol Use: none Drug Use: none Marital Status: Occupational Status: retired Immunizations History of Influenza Vaccine: Yes Influenza Vaccine Date: Apr 27, 2015 History of Tetanus Vaccine?: Yes Tetanus Immunization Date: Sep 16, 2008 History of Pneumococcal: Yes Pneumococcal Date: Jan 29, 2012 Allergies Coded Allergies: Iodinated Diagnostic Agents (Verified Allergy, Severe, ANAPHYLAXIS, ) Shellfish (Verified Allergy, Severe, "Seafood" -- ANAPHYLAXIS, 02/21/17) Erythromycin (Verified Allergy, Intermediate, RASH, 02/21/17) Penicillins (Verified Allergy, Intermediate, RASH, 02/21/17) FROM CHILDHOOD Simvastatin (Verified Allergy, Intermediate, RASH, 02/21/17) Celecoxib (Verified Allergy, Mild, RASH, 02/21/17) Nystatin (Verified Allergy, Mild, RASH, 02/21/17) Moxifloxacin (Verified Adverse Reaction, Intermediate, HALUCINATIONS, 02/21) Fish (Verified Adverse Reaction, Mild, GI SYMPTOMS, 02/21/17) Home Medications Scheduled Biotin (Biotin), 5 MG PO 3XWK Calcium Citrate-Vitamin D (Calcium Citrate + D), 1 TAB PO DAILY Fluticasone Propionate (Nasal) (Flonase Allergy Relief), 1 SPRAY INH UD Levothyroxine Sodium (Levothyroxine Sodium), 100 MCG PO QAM Probiotic Product (Probiotic), 1 TAB PO 3XWK Ranitidine (Zantac), 150 MG PO BID Rivaroxaban (Xarelto), 20 MG PO PM Rosuvastatin Calcium (Crestor), 5 MG PO 3XWK Sertraline (Zoloft), 100 MG PO HS Sotalol Hcl (Sotalol Hcl), 80 MG PO BID Tiotropium [place] (Spiriva Respimat), 2 PUFF INH QAM Review of Systems Constitutional- no fever; no weight loss Eyes- no acute visual changes ENT- no sinus drainage; no pharyngitis Pulmonary- no cough, no wheezing, no shortness of breath Cardiac- (+) as noted above GI- (+) as noted above - no dysuria, no hematuria Musculoskeletal- no arthralgias, no myalgias Derm- no rashes, no new skin lesions, no changing skin lesions Hematologic- no unusual bruising, no unusual bleeding Lymphatics- no adenopathy Endocrine- no polyuria or polydipsia; no heat or cold intolerance Neuro- no headaches, no focal neurologic symptoms Psych- no anxiety, no depression Physical Exam Vital Signs Date Time Temp Pulse Resp B/P (MAP) Pulse Ox O2 Delivery O2 Flow Rate FiO2 02/21/17 13:00 72 20 107/59 93 Nasal Cannula 2.0 02/21/17 12:54 71 20 93/53 90 Room Air 02/21/17 12:40 73 20 86/64 92 Nasal Cannula 2.0 02/21/17 12:30 79 20 90/58 93 Room Air 02/21/17 12:18 71 20 83/61 96 Room Air 02/21/17 12:09 74 20 76/50 93 Room Air 02/21/17 11:55 70 22 82/55 94 Room Air 02/21/17 11:35 70 20 103/77 93 Room Air 02/21/17 11:25 74 23 86/55 96 Room Air 02/21/17 11:15 71 18 85/67 96 Room Air 02/21/17 11:02 71 20 67/40 95 Room Air 02/21/17 10:45 75 22 75/50 96 Room Air 02/21/17 10:35 75 22 66/51 96 Room Air 02/21/17 10:25 71 22 67/48 95 Room Air 02/21/17 10:10 71 22 67/45 93 Room Air 02/21/17 10:07 71 22 71/46 97 Room Air 02/21/17 09:55 70 20 62/44 93 Room Air 02/21/17 09:40 73 20 80/43 94 Room Air 02/21/17 09:24 71 20 71/53 95 Room Air 69/48 73/48 02/21/17 09:23 95 Room Air 02/21/17 08:43 81 02/21/17 08:26 36.4 79 16 91/60 94 Room Air General Appearance: WD/WN, no apparent distress Head: normocephalic, atraumatic Eyes: normal inspection, EOMI, sclerae normal ENT: normal ENT inspection, hearing grossly normal, pharynx normal Neck: supple, no adenopathy, thyroid normal, no JVD, trachea midline Respiratory/Chest: chest non-tender, lungs clear, normal breath sounds, no respiratory distress, no accessory muscle use Cardiovascular: regular rate, rhythm, no edema, no JVD, no murmur Abdomen/GI: normal bowel sounds, non tender, soft, no organomegaly Back: normal inspection, no CVA tenderness Extremities/Musculoskelatal: normal inspection, no calf tenderness, no pedal edema, non-tender 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, no motor/sensory deficits, alert, normal mood/affect, oriented x 3 Skin: normal color, warm/dry, no rash Lymphatic: no adenopathy Diagnostics Laboratory Results Results Past 24 Hours Test 02/21/17 08:55 02/21/17 10:27 02/21/17 12:19 02/21/17 13:24 Range/Units White Blood Count 8.28 4.8-10.8 K/uL Red Blood Count 4.23 4.2-5.4 M/uL Hemoglobin 12.7 12.0-16.0 g/dL Hematocrit 39.0 37-47 % Mean Corpuscular Volume 92.2 80-100 fL Mean Corpuscular Hemoglobin 30.0 25-34 pg Mean Corpuscular Hemoglobin Concent 32.6 32-36 g/dl Platelet Count 183 130-400 K/uL Mean Platelet Volume 9.6 7.4-10.4 fL Neutrophils (%) (Auto) 77.7 % Lymphocytes (%) (Auto) 13.4 % Monocytes (%) (Auto) 7.2 % Eosinophils (%) (Auto) 1.3 % Basophils (%) (Auto) 0.2 % Neutrophils # (Auto) 6.42 1.4-6.5 K/uL Lymphocytes # (Auto) 1.11 1.2-3.4 K/uL Monocytes # (Auto) 0.60 0.11-0.59 K/uL Eosinophils # (Auto) 0.11 0-0.5 K/uL Basophils # (Auto) 0.02 0-0.2 K/uL RDW Standard Deviation 48.6 36.4-46.3 fL RDW Coefficient of Variation 14.4 11.5-14.5 % Immature Granulocyte % (Auto) 0.2 % Immature Granulocyte # (Auto) 0.02 0.00-0.02 K/uL Erythrocyte Sedimentation Rate 14 0-21 mm/hr Sodium Level 139 136-145 mmol/L Potassium Level 4.5 3.5-5.1 mmol/L Chloride Level 108 98-107 mmol/L Carbon Dioxide Level 24 21-32 mmol/L Anion Gap 7.0 3-11 mmol/L Blood Urea Nitrogen 16 7-18 mg/dl Creatinine 0.84 0.60-1.20 mg/dl Est Creatinine Clear Calc Drug Dose 62.8 ml/min Estimated GFR () 77.7 Estimated GFR (Non- 67.0 BUN/Creatinine Ratio 19.3 10-20 Random Glucose 134 70-99 mg/dl Calcium Level 9.0 8.5-10.1 mg/dl Total Bilirubin 0.6 0.2-1 mg/dl Aspartate Amino Transf (AST/SGOT) 21 15-37 U/L Alanine Aminotransferase (ALT/SGPT) 22 12-78 U/L Alkaline Phosphatase 53 45-117 U/L Troponin I < 0.015 0-0.045 ng/ml Total Protein 6.8 6.4-8.2 gm/dl Albumin 3.6 3.4-5.0 gm/dl Globulin 3.2 2.5-4.0 gm/dl Albumin/Globulin Ratio 1.1 0.9-2 Thyroid Stimulating Hormone (TSH) 2.890 0.300-4.500 uIu/ml Free Thyroxine 1.16 0.80-1.60 ng/dl Bedside Lactic Acid Venous 1.30 0.90-1.70 mmol/L Lyme Disease IgG Antibody NEG NEG Lyme Disease IgM Antibody NEG NEG Creatine Kinase MB Ratio 0-3.0 Test 02/21/17 13:47 Range/Units Microbiology Results 02/21/17 Blood Culture, Received Pending 02/21/17 Blood Culture, Received Pending Diagnostic Radiology (CHEST) THORAX WITHOUT CT DOSE: 345.72 mGy.cm HISTORY: Pain substernal chest pain TECHNIQUE: Multiaxial CT images of the chest were performed without contrast. A dose lowering technique was utilized adhering to the principles of ALARA. COMPARISON: Chest CT 11/07/2016. Routine chest 12/03/2016 FINDINGS: Interval development of bibasilar parenchymal infiltrative change. Interval development of pericardial effusion. Maximum pericardial effusion thickness is 1 cm. Trace amount of intravenous air over the right pulmonary apex most likely iatrogenic. Several small mediastinal and/or hilar nodes. Limited evaluation the upper abdomen is unremarkable. The esophagus appears to be unremarkable within limitations of an unenhanced scan. Interval placement of a bipolar cardiac pacemaker with the leads potentially traversing the myocardium and extending into the pericardial fat region IMPRESSION: 1. Bibasilar parenchymal infiltrates. 2. Interval development of the pericardial effusion with thickness of 1 cm. 3. Pacemaker leads potentially traversing the ventricular thickness with the tip of the pericardial fat. EKG dual paced rhythm heart rate 89 Impression Assessment and Plan 76 year old female with history of Complete Heart Block, s/p Pacemaker Placement , Paroxysmal Atrial Fibrillation on Xarelto, s/p Ablation, Bronchiectasis, Hypothyroidism, presenting with chest pain starting yesterday. CHEST PAIN WITH HYPOTENSION - possible Dissection? 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 blood cultures urine cultures - Adrenal Insufficiency, Hypothyroidism? check cortisol, Thyroid function empiric IV Levothyroxine, Hydrocortisone ordered - accidental overdose of Sotalol? PAROXYSMAL A FIB, COMPLETE HEART BLOCK S/P PACEMAKER, ABLATION - hold Sotalol and Xarelto for [facility] Cardiology on board BRONCHIECTASIS - respiratory status stable - monitor for signs/symptoms of aspiration pneumonia - continue Spiriva HYPOTHYROIDISM - on IV l thyroxine DVT prophylaxis - on xarelto Code Status Full Code per patient Disposition will need PT/OT usually lives at home VTE Prophylaxis VTE Risk Assessment Done? Y/N: Yes Risk Level: Moderate Given or contraindicated: Other Anticoagulation (on xarelto)
[2017-02-21 14:02] LABS: ISTAT IONIZED CALCIUM 1.15 mmol/l (1.12-1.32)
[2017-02-21 14:04] LABS: HEMATOCRIT 43.4 % (37-47)
[2017-02-21 14:30] LABS: CKMB/CK RATIO 1.5 (0-3.0)
--- NOTE | 2017-02-21 14:46 | EMERGENCY ROOM VISIT NOTE ---
History Report prepared by Cecily: Devin Babin Under the Supervision of: Dr. Remington Garcia M.D. First contact with patient: 08:55 Chief Complaint: GI ASSESSMENT Stated Complaint: GI ASSESSMENT Nursing Triage Summary: "I think Im having a major GERD episode. I bent over yesterday and felt 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. By afternoon I was having extreme pain behind sternum. I didnt think it was a heart attack. I slept ok but this morning i felt awful. Took a ranitidine this AM. Vomited bile and then started with diarrhea and became very shaky." Recent pacemaker placement in November, hard to breathe. History of Present Illness The patient is a 76 year old female who presents to the Emergency Room with complaints of persistent chest pain beginning yesterday. She has a history of GERD beginning five years ago and states that her symptoms feel similar, but more intense. She notes that her symptoms began shortly after eating, while bending over and working in the garden. The patient also complains of vomiting, diarrhea and sore throat. She states that she began her vomiting and diarrhea today. She states that her pain is worsened with breathing. The patient states that her pain has radiated into her jaw briefly. She has a pacemaker in place which was placed three months ago. She denies any leg pain. The patient took Ranidine this morning for her symptoms, but vomited shortly afterwards. She states that she has been drinking a lot of water recently. Source of History: patient Onset: Yesterday Position: chest Timing: other (persistent) Modifying Factors (Worsening): breathing Associated Symptoms: + sorethroat, + vomiting, + diarrhea Note: The patient denies any leg pain. Review of Systems All systems have been listed, reviewed, and are negative other than those previously mentioned. Please see Additional Medical History Sheet. Past Medical & Surgical Medical Problems: (1) Bronchiectasis (2) Chest pain (3) GERD (gastroesophageal reflux disease) (4) HLD (hyperlipidemia) (5) Hypotension (6) Hypothyroidism (7) Osteoarthritis (8) Osteoporosis (9) Paroxysmal a-fib (10) Rapid atrial fibrillation Surgical Problems: (1) H/O arthroscopic knee surgery (2) H/O partial thyroidectomy (3) History of appendectomy (4) History of sinus surgery (5) History of tonsillectomy (6) History of tubal ligation (7) Hx of cholecystectomy Family History Patient reports no known family medical history. Social History Smoking Status: Never Smoker Alcohol Use: occasionally Drug Use: none Marital Status: Housing Status: lives with family Occupation Status: retired Current/Historical Medications Scheduled Biotin (Biotin), 5 MG PO 3XWK Calcium Citrate-Vitamin D (Calcium Citrate + D), 1 TAB PO DAILY Fluticasone Propionate (Nasal) (Flonase Allergy Relief), 1 SPRAY INH UD Levothyroxine Sodium (Levothyroxine Sodium), 100 MCG PO QAM Probiotic Product (Probiotic), 1 TAB PO 3XWK Ranitidine (Zantac), 150 MG PO BID Rivaroxaban (Xarelto), 20 MG PO PM Rosuvastatin Calcium (Crestor), 5 MG PO 3XWK Sertraline (Zoloft), 100 MG PO HS Sotalol Hcl (Sotalol Hcl), 80 MG PO BID Tiotropium [place] (Spiriva Respimat), 2 PUFF INH QAM Allergies Coded Allergies: Iodinated Diagnostic Agents (Verified Allergy, Severe, ANAPHYLAXIS, ) Shellfish (Verified Allergy, Severe, "Seafood" -- ANAPHYLAXIS, 02/21/17) Erythromycin (Verified Allergy, Intermediate, RASH, 02/21/17) Penicillins (Verified Allergy, Intermediate, RASH, 02/21/17) FROM CHILDHOOD Simvastatin (Verified Allergy, Intermediate, RASH, 02/21/17) Celecoxib (Verified Allergy, Mild, RASH, 02/21/17) Nystatin (Verified Allergy, Mild, RASH, 02/21/17) Moxifloxacin (Verified Adverse Reaction, Intermediate, HALUCINATIONS, 02/21) Fish (Verified Adverse Reaction, Mild, GI SYMPTOMS, 02/21/17) Physical Exam Vital Signs Date Time Temp Pulse Resp B/P (MAP) Pulse Ox O2 Delivery O2 Flow Rate FiO2 02/21/17 12:18 71 20 83/61 96 Room Air 02/21/17 12:09 74 20 76/50 93 Room Air 02/21/17 11:55 70 22 82/55 94 Room Air 02/21/17 11:35 70 20 103/77 93 Room Air 02/21/17 11:25 74 23 86/55 96 Room Air 02/21/17 11:15 71 18 85/67 96 Room Air 02/21/17 11:02 71 20 67/40 95 Room Air 02/21/17 10:45 75 22 75/50 96 Room Air 02/21/17 10:35 75 22 66/51 96 Room Air 02/21/17 10:25 71 22 67/48 95 Room Air 02/21/17 10:10 71 22 67/45 93 Room Air 02/21/17 10:07 71 22 71/46 97 Room Air 02/21/17 09:55 70 20 62/44 93 Room Air 02/21/17 09:40 73 20 80/43 94 Room Air 02/21/17 09:24 71 20 71/53 95 Room Air 69/48 73/48 02/21/17 09:23 95 Room Air 02/21/17 08:43 81 02/21/17 08:26 36.4 79 16 91/60 94 Room Air Physical Exam GENERAL: Patient awake, alert, oriented x 3. Patient follows commands. Patient does not appear toxic. Patient is adequately hydrated and well- nourished. SKIN: No erythema, pallor, cyanosis or rash. Diaphoretic. HEENT: Normal head, pupils equal, reactive to light and accommodation. Ears normal. Oral cavity and posterior pharynx appear normal. Neck: Without adenopathy, no neck vein distention. Well healed scar at the base of the neck consistent with thyroidectomy LUNGS: Clear to auscultation. No wheezes, no rales, no rhonchi. HEART: No murmurs. No gallops. No rubs ABDOMEN: No masses, no rebound, no hepatomegaly or splenomegaly. EXTREMITIES: No signs of trauma. No pedal or pretibial edema. No calf or thigh tenderness. Well healed scar on the left knee. NEUROLOGIC: Cranial nerves II-XII within normal limits. No gross motor sensory function deficits. Medical Decision & Procedures ER Provider Diagnostic Interpretation: Radiology results as stated below per my review and radiologist interpretation: CHEST ONE VIEW PORTABLE FINDINGS: The heart is borderline enlarged. There is no failure. There is no focal pulmonary consolidation. There are bibasilar opacities, likely representing subsegmental atelectasis. There is a left subclavian dual-chamber central venous pacemaker.[ IMPRESSION: Bibasal atelectatic changes. No evidence of failure. No evidence of lobar consolidation Electronically signed by: Jagdeep Thayer M.D. (CHEST) THORAX WITHOUT FINDINGS: Interval development of bibasilar parenchymal infiltrative change. Interval development of pericardial effusion. Maximum pericardial effusion thickness is 1 cm. Trace amount of intravenous air over the right pulmonary apex most likely iatrogenic. Several small mediastinal and/or hilar nodes. Limited evaluation the upper abdomen is unremarkable. The esophagus appears to be unremarkable within limitations of an unenhanced scan. Interval placement of a bipolar cardiac pacemaker with the leads potentially traversing the myocardium and extending into the pericardial fat region IMPRESSION: 1. Bibasilar parenchymal infiltrates. 2. Interval development of the pericardial effusion with thickness of 1 cm. 3. Pacemaker leads potentially traversing the ventricular thickness with the tip of the pericardial fat. The above report was generated using voice recognition software. It may contain grammatical, syntax or spelling errors. Electronically signed by: Garry Torres M.D. Laboratory Results 02/21/17 08:55 Red Blood Count 4.23, Mean Corpuscular Volume 92.2, Mean Corpuscular Hemoglobin 30.0, Mean Corpuscular Hemoglobin Concent 32.6, Mean Platelet Volume 9.6, Neutrophils (%) (Auto) 77.7, Lymphocytes (%) (Auto) 13.4, Monocytes (%) (Auto) 7.2, Eosinophils (%) (Auto) 1.3, Basophils (%) (Auto) 0.2, Neutrophils # (Auto) 6.42, Lymphocytes # (Auto) 1.11, Monocytes # (Auto) 0.60, Eosinophils # (Auto) 0.11, Basophils # (Auto) 0.02 02/21/17 08:55 Test 02/21/17 08:55 02/21/17 10:27 02/21/17 12:19 White Blood Count 8.28 K/uL (4.8-10.8) Red Blood Count 4.23 M/uL (4.2-5.4) Hemoglobin 12.7 g/dL (12.0-16.0) Hematocrit 39.0 % (37-47) Mean Corpuscular Volume 92.2 fL (80-100) Mean Corpuscular Hemoglobin 30.0 pg (25-34) Mean Corpuscular Hemoglobin Concent 32.6 g/dl (32-36) Platelet Count 183 K/uL (130-400) Mean Platelet Volume 9.6 fL (7.4-10.4) Neutrophils (%) (Auto) 77.7 % Lymphocytes (%) (Auto) 13.4 % Monocytes (%) (Auto) 7.2 % Eosinophils (%) (Auto) 1.3 % Basophils (%) (Auto) 0.2 % Neutrophils # (Auto) 6.42 K/uL (1.4-6.5) Lymphocytes # (Auto) 1.11 K/uL (1.2-3.4) Monocytes # (Auto) 0.60 K/uL (0.11-0.59) Eosinophils # (Auto) 0.11 K/uL (0-0.5) Basophils # (Auto) 0.02 K/uL (0-0.2) RDW Standard Deviation 48.6 fL (36.4-46.3) RDW Coefficient of Variation 14.4 % (11.5-14.5) Immature Granulocyte % (Auto) 0.2 % Immature Granulocyte # (Auto) 0.02 K/uL (0.00-0.02) Erythrocyte Sedimentation Rate 14 mm/hr (0-21) Est Creatinine Clear Calc Drug Dose 62.8 ml/min Estimated GFR () 77.7 Estimated GFR (Non- 67.0 BUN/Creatinine Ratio 19.3 (10-20) Calcium Level 9.0 mg/dl (8.5-10.1) Total Bilirubin 0.6 mg/dl (0.2-1) Aspartate Amino Transf (AST/SGOT) 21 U/L (15-37) Alanine Aminotransferase (ALT/SGPT) 22 U/L (12-78) Alkaline Phosphatase 53 U/L (45-117) Total Protein 6.8 gm/dl (6.4-8.2) Albumin 3.6 gm/dl (3.4-5.0) Globulin 3.2 gm/dl (2.5-4.0) Albumin/Globulin Ratio 1.1 (0.9-2) Thyroid Stimulating Hormone (TSH) 2.890 uIu/ml (0.300-4.500) Free Thyroxine 1.16 ng/dl (0.80-1.60) Bedside Lactic Acid Venous 1.30 mmol/L (0.90-1.70) Random Cortisol 52.37 mcg/dl Lyme Disease IgG Antibody NEG (NEG) Lyme Disease IgM Antibody NEG (NEG) Laboratory results as stated above per my review. Medications Administered Medications (Trade) Dose Ordered Sig/Amauri Route Start Time Stop Time Status Last Admin Dose Admin Ranitidine HCl (zANTac IV) 50 mg NOW STAT IV 02/21/17 09:02 02/21/17 09:07 DC 02/21/17 09:23 50 MG Ondansetron HCl (Zofran Inj) 4 mg Q1HWA PRN IV 02/21/17 10:00 02/21/17 14:55 DC 02/21/17 10:54 4 MG Sodium Chloride 1,000 ml @ 1,000 mls/hr Q1H ONCE IV 02/21/17 10:15 02/21/17 11:14 DC 02/21/17 09:45 1,000 MLS/HR Sodium Chloride 1,000 ml @ 1,000 mls/hr Q1H ONCE IV 02/21/17 10:30 02/21/17 11:29 DC 02/21/17 10:15 1,000 MLS/HR Promethazine HCl 12.5 mg/Sodium Chloride 50.5 ml @ 204 mls/hr NOW STAT IV 02/21/17 11:38 02/21/17 11:52 DC 02/21/17 11:38 204 MLS/HR Perflutren Lipid Microsphere (Definity) 2 ml ONE ONCE IV 02/21/17 11:56 02/21/17 11:57 DC 02/21/17 11:57 2 ML ECG Indication: chest pain Rate (beats per minute): 89 Rhythm: other (AV duel paced rhythm) Findings: no acute ischemic change, no ectopy ED Course 0856: Past medical records reviewed. The patient was evaluated in room A3. A complete history and physical examination was performed. 0902: Ordered Zantac 50 mg IV. 0932: The patient became orthostatic and diaphoretic. I checked in on her and she is resting. 1000: Ordered Zofran Inj 4 mg IV. 1015: Ordered Sodium Chloride 1000 ml @ 1000 mls/hr IV. 1030: Ordered Sodium Chloride 1000 ml @ 1000 mls/hr IV. 1138: Ordered Promethazine HCl 12.5 mg/Sodium Chloride 50.5 ml @ 204 mls/hr IV. 1150: Upon reevaluation, the patient is resting. I discussed today's findings with her. She verbalized agreement of the treatment plan. [facility] the patient for further management. 1156: Ordered Definity 2 mL IV. Medical Decision I considered multiple diagnoses including myocardial infarction, chest wall pain , pericarditis, myocarditis, aortic emergencies, pulmonary embolism, congestive heart failure, GI causes, and other significant cardiopulmonary disorders. The patient arrived here with GERD-like symptoms. The pain was worse than her usual pain. While here the patient became hypotensive. This raises the concern of a possible esophageal rupture and therefore CT was obtained. CT revealed a small pericardial effusion. Echocardiogram was performed to further evaluate the heart which revealed no tamponade. Multiple other labs were obtained. Please see above. Patient is given a large amount of IV fluids to control her hypotension. I did not place her on pressors while in the ED. I discussed care with cardiology and the stopper maker helper. The exact cause for her hypotension and pain remain uncertain. The patient will require further evaluation in the intensive care unit. Medication Reconcilliation Current Medication List: was personally reviewed by me Blood Pressure Screening Patient's blood pressure: Low blood pressure Consults Time Called: 1125 Consulting Physician: Dr. Qureshi -Cardiology Returned Call: [phone] Discussed the patient's case with Dr. Qureshi. He recommends that the patient be admitted the hospital for further evaluation. Additional Consults: Time Called: 1150 Consulted Physician: Rosario NORWOOD -[facility] Returned Call: [phone] Additional Comments: Discussed the patient's case with Rosario NORWOOD. The patient will be evaluated for further management. Time Called: 1202 Consulted Physician: Dr. Martinez -ICU Returned Call: [phone] Additional Comments: Discussed the patient's case with Dr. Martinez. The patient will be taken to the ICU. Impression Primary Impression: Hypotension Additional Impressions: Precordial chest pain Pericardial effusion Hx of gastroesophageal reflux (GERD) Critical Care I have personally spent greater than 60 minutes of critical care time in the direct management of this patient. This includes bedside care, interpretation of diagnostic studies, and testing, discussion with consultants, patient, and family members, and other required patient management activities. This 60 minutes is in excess of all separately billable procedures. Scribe Attestation The scribe's documentation has been prepared under my direction and personally reviewed by me in its entirety. I confirm that the note above accurately reflects all work, treatment, procedures, and medical decision making performed by me. Departure Information Dispostion Being Evaluated By Hospitalist Referrals Trang Allan D.O. (PCP) Patient Instructions My [facility] Problem Qualifiers
--- NOTE | 2017-02-21 14:56 | ECHOCARDIOGRAM REPORT ---
*NOTICE TO RECEIVING DEMOCRAT AGENCY This information is strictly Confidential and protected under [place] law. [place] law prohibits you from making any further disclosure of this information unless further disclosure is expressly permitted by the written consent of the person to whom it pertains or is authorized by law. A general authorization for the release of medical or other information is not sufficient for this purpose. Hospital accepts no responsibility if the information is made available to any other person, INCLUDING THE PATIENT. Interpretation Summary * Name: DAVIDE BARRIOS Study Date: 02/21/2017 11:18 AM BP: 103/77 mmHg * Patient Location: [facility] HR: 73 * : 1940 (M/d/yyyy) Gender: Female Height: 67 in * Age: 76 yrs Ethnicity: [place] Weight: 183 lb * Ordering Physician: Remington Garcia * Referring Physician: Self, Referred * Performed By: Danna Villa RDCS * * Reason For Study: CHEST PAIN, CHECK EFFUSION * BSA: 1.9 m2 * -- Conclusions -- * Small pericardial effusion. * There are no echocardiographic indications of cardiac tamponade. * The left ventricle is normal in size. * Ejection Fraction = 60-65%. * The right ventricular systolic function is normal. * The left atrial size is normal. * Right atrial size is normal. * No significant valvular pathology. Procedure Details * A contrast injection of Definity was performed to improve assessment of LV function. * Contrast was injected into an intravenous site in the left arm. * One vial of Definity ultrasound contrast was diluted in normal saline to a total volume of 10 ml. A total of '2' ml of solution was administered during imaging. * Lot # [id number] of Definity utilized for procedure. * Expiration date APR 30. * The attending nurse who injected the contrast agent was ED RN, RN. Left Ventricle * The left ventricle is normal in size. * There is mild concentric left ventricular hypertrophy. * Ejection Fraction = 60-65%. * The left ventricle is normal in structure and function. * The left ventricular wall motion is normal. Right Ventricle * The right ventricle is normal size. * The right ventricular systolic function is normal. Atria * The left atrial size is normal. * Right atrial size is normal. * No ASD detected; PFO is not assessed. Mitral Valve * The mitral valve anatomy is normal. * Significant mitral 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 is absent. Tricuspid Valve * The tricuspid valve anatomy is normal. * There is mild tricuspid 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. Aortic Valve * The aortic valve is normal in structure and function. Pulmonic Valve * The pulmonic valve is not well visualized. * There is no significant pulmonary 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. Great Vessels * The aortic root and proximal ascending aorta are normal sized. Pericardium/Pleural * Small pericardial effusion. * There are no echocardiographic indications of cardiac tamponade. MMode 2D Measurements and Calculations IVSd 1.3 cm IVSs 1.5 cm LVIDd 4.0 cm LVIDs 2.5 cm LVPWd 1.5 cm LVPWs 1.8 cm IVS/LVPW 0.85 FS 36.8 % EDV(Teich) 69.6 ml ESV(Teich) 22.8 ml EF(Teich) 67.2 % EDV(cubed) 63.5 ml ESV(cubed) 16.0 ml EF(cubed) 74.7 % % IVS thick 20.4 % % LVPW thick 20.2 % LV mass(C)d 200.0 grams LV mass(C)dI 102.7 grams/m\S\2 LV mass(C)s 149.8 grams LV mass(C)sI 76.9 grams/m\S\2 SV(Teich) 46.8 ml SI(Teich) 24.0 ml/m\S\2 SV(cubed) 47.5 ml SI(cubed) 24.4 ml/m\S\2 Ao root diam 3.1 cm Ao root area 7.5 cm\S\2 LA dimension 3.6 cm LA/Ao 1.2 LVAd ap4 16.5 cm\S\2 LVLd ap4 6.7 cm EDV(MOD-sp4) 36.4 ml EDV(sp4-el) 34.6 ml LVAs ap4 9.9 cm\S\2 LVLs ap4 6.7 cm ESV(MOD-sp4) 15.0 ml ESV(sp4-el) 12.3 ml EF(MOD-sp4) 58.9 % EF(sp4-el) 64.5 % LVAd ap2 16.4 cm\S\2 LVLd ap2 6.1 cm EDV(MOD-sp2) 36.7 ml EDV(sp2-el) 37.3 ml LVAs ap2 9.6 cm\S\2 LVLs ap2 5.8 cm ESV(MOD-sp2) 13.3 ml ESV(sp2-el) 13.4 ml EF(MOD-sp2) 63.7 % EF(sp2-el) 64.0 % LVLd %diff -8.61 % EDV(MOD-bp) 36.4 ml LVLs %diff -15.31 % ESV(MOD-bp) 12.8 ml EF(MOD-bp) 64.7 % SV(MOD-sp4) 21.5 ml SI(MOD-sp4) 11.0 ml/m\S\2 SV(MOD-sp2) 23.4 ml SI(MOD-sp2) 12.0 ml/m\S\2 SV(MOD-bp) 23.5 ml SI(MOD-bp) 12.1 ml/m\S\2 SV(sp4-el) 22.3 ml SI(sp4-el) 11.5 ml/m\S\2 SV(sp2-el) 23.9 ml SI(sp2-el) 12.3 ml/m\S\2 Doppler Measurements and Calculations MV E max balaji 51.0 cm/sec MV A max balaji 36.0 cm/sec MV E/A 1.4 MV dec time 0.35 sec Ao V2 max 96.4 cm/sec Ao max PG 3.7 mmHg Ao max PG (full) 0.57 mmHg LV V1 max PG 3.2 mmHg LV V1 max 88.8 cm/sec TR max balaji 224.9 cm/sec
[2017-02-21] MEDS ORDERED: PANTOprazole INJ 40 MG in SYRINGE 0 ML IV ONE (15:00)
[2017-02-21] MEDS ORDERED: LEVOTHYROXINE SODIUM INJ 100 MCG in SYRINGE 0 ML IV SCH (15:00)
[2017-02-21] MEDS: SODIUM CHLORIDE 0.9% 1000ML 1,000 ML IV SCH ×2 (15:00→23:00)
[2017-02-21] MEDS: HYDROCORTISONE IV SCH ×2 (15:45→20:19)
[2017-02-21 16:05] LABS: URINE APPEARANCE CLOUDY (CLEAR); URINE BILIRUBIN NEG (NEG); URINE COLOR DK YELLOW; URINE EPITHELIAL CELL AUTO >30 /lpf (0-5); URINE NITRITE NEG (NEG); URINE SPECIFIC GRAVITY 1.015 (1.000-1.030); UROBILINOGEN NEG (NEG); ZZUR CULT IF INDIC CLEAN CATCH NO
[2017-02-21 16:07] LABS: MANUAL MICROSCOPIC REQUIRED? NO; REVIEW REQ? YES
[2017-02-21 16:23] LABS: URINE PATH CASTS 5-10 GRANULAR CASTS /lpf (0)
[2017-02-21] MEDS ORDERED: DOPamine 400MG / D5W 400 MG IV PRN (18:28)
[2017-02-21 19:29] LABS: HEMATOCRIT 43.5 % (37-47)
[2017-02-21 19:53] LABS: CKMB/CK RATIO 1.4 (0-3.0)
[2017-02-21] MEDS ORDERED: SERTRALINE HCL 100 MG TAB PO SCH (21:00)
[2017-02-22] VITALS (20 sets, daily range): BP systolic 66–123; BP diastolic 44–77; PULSE 70–80; TEMP 36.8; O2SAT 93–97
[2017-02-22] MEDS: HYDROCORTISONE IV SCH ×2 (00:28→06:31)
[2017-02-22 01:41] LABS: HEMATOCRIT 42.9 % (37-47)
[2017-02-22 02:03] LABS: CKMB/CK RATIO 1.4 (0-3.0)
[2017-02-22] MEDS: SODIUM CHLORIDE 0.9% 1000ML 1,000 ML IV SCH ×2 (06:35→15:29)
[2017-02-22 07:17] LABS: HEMATOCRIT 39.8 % (37-47); IG% 0.3 %; MEAN CELL VOLUME 93.6 fL (80-100); MEAN CORPUSCULAR HEMOGLOBIN 30.4 pg (25-34); MEAN PLATELET VOLUME 10.1 fL (7.4-10.4); NEUT % 86.7 %; PLATELET COUNT 149 K/uL (130-400); RED BLOOD COUNT 4.25 M/uL (4.2-5.4); WHITE BLOOD COUNT 11.68 K/uL (4.8-10.8)
[2017-02-22 07:27] LABS: COMPLETE YES; MEAN CORPUSCULAR HGB CONC 32.4 g/dl (32-36)
[2017-02-22 07:54] LABS: BUN/CREATININE RATIO 23.7 (10-20); CREATININE 0.85 mg/dl (0.60-1.20); MAGNESIUM 2.1 mg/dl (1.8-2.4); POTASSIUM 4.4 mmol/L (3.5-5.1)
[2017-02-22 07:56] LABS: PHOSPHORUS 2.8 mg/dl (2.5-4.9)
[2017-02-22 08:12] LABS: ESTIMATED AVERAGE GLUCOSE 114 mg/dl; HA1C FLAG Normal (Normal)
[2017-02-22] MEDS ORDERED: TIOTROPIUM BROMIDE 5 PUFF/90 MCG INH INH SCH (09:00)
[2017-02-22] MEDS ORDERED: COLCHICINE 0.6 MG TAB PO ONE (10:00)
--- NOTE | 2017-02-22 10:10 | Progress Note ---
Medicine Progress Note Date & Time of Visit: Feb 22, 2017 at 09:58. Subjective patient seen resting in bed, comfortable, using cellphone continued on dopamine, had hypotensive episode this morning oriented x 3, not in distress, in good spirits states she feels much better today chest pain is minimal now, 1/10 denies dyspnea, palpitations, dizziness, nausea no headache, dizziness denies other symptoms Objective Last 8 Hrs Date Time Temp Pulse Resp B/P (MAP) Pulse Ox O2 Delivery O2 Flow Rate FiO2 02/22/17 08:00 36.8 74 24 106/65 (79) 97 02/22/17 08:00 Room Air 02/22/17 06:31 72 20 85/58 (67) 96 Nasal Cannula 2.0 02/22/17 06:01 71 19 101/44 (63) 96 Nasal Cannula 2.0 02/22/17 05:02 71 17 66/52 (57) 96 Nasal Cannula 2.0 02/22/17 04:37 96 Nasal Cannula 2.0 02/22/17 04:32 78 23 97/71 (80) 95 Nasal Cannula 2.0 02/22/17 04:01 36.8 70 16 96/62 (73) 96 Nasal Cannula 2.0 02/22/17 03:31 70 10 93/56 (68) 96 Nasal Cannula 2.0 02/22/17 03:14 72 7 84/64 (71) 96 Nasal Cannula 2.0 02/22/17 02:31 70 4 97/58 (71) 97 Nasal Cannula 2.0 Physical Exam: General- oriented x 3, not in distress, speaks in sentences with no effort Eyes- EOMI, anicteric Neck- no JVD Lungs- clear breath sounds bilaterally, no rales/wheezes Heart- regular rhythm; no murmur, normal rate Abdomen- normal bowel sounds, soft, nontender Extremities- no pretibial edema, no calf tenderness Neuro- alert, oriented x 3;no gross focal deficits Skin- warm & dry Laboratory Results: Last 24 Hours Test 02/21/17 10:27 02/21/17 12:19 02/21/17 13:47 02/21/17 13:50 Bedside Lactic Acid Venous 1.30 mmol/L Random Cortisol 52.37 mcg/dl Lyme Disease IgG Antibody NEG Lyme Disease IgM Antibody NEG Hemoglobin 14.1 g/dL Hematocrit 43.4 % Total Creatine Kinase 108 U/L Creatine Kinase MB 1.6 ng/ml Creatine Kinase MB Ratio 1.5 Troponin I < 0.015 ng/ml Bedside Hemoglobin 15.0 g/dl Bedside Hematocrit 44 % Bedside Sodium 141 mEq/L Bedside Potassium 4.6 mEq/L Bedside Chloride 106 mEq/L Bedside Total CO2 22 mEq/l Anion Gap 18.0 mmol/L Bedside Blood Urea Nitrogen 19 mg/dl Bedside Creatinine 1.0 mg/dl Bedside Glucose (other) 204 mg/dl Bedside Ionized Calcium (Jose Alfredo) 1.15 mmol/l Test 02/21/17 15:53 02/21/17 16:54 02/21/17 19:17 02/22/17 00:15 Urine Color DK YELLOW Urine Appearance CLOUDY Urine pH 5.0 Urine Specific [place] 1.015 Urine Protein 2+ Urine Glucose (UA) NEG Urine Ketones NEG Urine Occult Blood 1+ Urine Nitrite NEG Urine Bilirubin NEG Urine Urobilinogen NEG Urine Leukocyte Esterase NEG Urine WBC (Auto) 1-5 /hpf Urine RBC (Auto) 5-10 /hpf Urine Hyaline Casts (Auto) >30 /lpf Urine Epithelial Cells (Auto) >30 /lpf Urine Bacteria (Auto) NEG Urine Renal Epithelial Cells 0-5 /lpf Urine Pathogenic Casts 5-10 GRANULAR CASTS /lpf Bedside Glucose 160 mg/dl 172 mg/dl Hemoglobin 14.2 g/dL Hematocrit 43.5 % Total Creatine Kinase 76 U/L Creatine Kinase MB 1.1 ng/ml Creatine Kinase MB Ratio 1.4 Troponin I 0.022 ng/ml Test 02/22/17 01:29 02/22/17 06:07 02/22/17 06:56 Hemoglobin 13.5 g/dL 12.9 g/dL Hematocrit 42.9 % 39.8 % Total Creatine Kinase 57 U/L Creatine Kinase MB 0.8 ng/ml Creatine Kinase MB Ratio 1.4 Troponin I 0.018 ng/ml Bedside Glucose 155 mg/dl White Blood Count 11.68 K/uL Red Blood Count 4.25 M/uL Mean Corpuscular Volume 93.6 fL Mean Corpuscular Hemoglobin 30.4 pg Mean Corpuscular Hemoglobin Concent 32.4 g/dl Platelet Count 149 K/uL Mean Platelet Volume 10.1 fL Neutrophils (%) (Auto) 86.7 % Lymphocytes (%) (Auto) 6.0 % Monocytes (%) (Auto) 7.0 % Eosinophils (%) (Auto) 0.0 % Basophils (%) (Auto) 0.0 % Neutrophils # (Auto) 10.13 K/uL Lymphocytes # (Auto) 0.70 K/uL Monocytes # (Auto) 0.82 K/uL Eosinophils # (Auto) 0.00 K/uL Basophils # (Auto) 0.00 K/uL RDW Standard Deviation 50.3 fL RDW Coefficient of Variation 14.7 % Immature Granulocyte % (Auto) 0.3 % Immature Granulocyte # (Auto) 0.03 K/uL Sodium Level 141 mmol/L Potassium Level 4.4 mmol/L Chloride Level 114 mmol/L Carbon Dioxide Level 22 mmol/L Anion Gap 5.0 mmol/L Blood Urea Nitrogen 20 mg/dl Creatinine 0.85 mg/dl Est Creatinine Clear Calc Drug Dose 64.3 ml/min Estimated GFR () 76.6 Estimated GFR (Non- 66.1 BUN/Creatinine Ratio 23.7 Random Glucose 151 mg/dl Estimated Average Glucose 114 mg/dl Hemoglobin A1c 5.6 % Calcium Level 8.0 mg/dl Phosphorus Level 2.8 mg/dl Magnesium Level 2.1 mg/dl Total Bilirubin 0.7 mg/dl Direct Bilirubin 0.2 mg/dl Aspartate Amino Transf (AST/SGOT) 41 U/L Alanine Aminotransferase (ALT/SGPT) 61 U/L Alkaline Phosphatase 71 U/L Total Protein 6.2 gm/dl Albumin 3.0 gm/dl Date/Time Source Procedure Growth Status 02/21/17 12:19 Blood Blood Culture Pending Received 02/21/17 11:28 Blood Blood Culture Pending Received 02/21/17 14:15 Nasal MRSA DNA Surveillance Screen - Final Specimen Negative for MRSA by DNA Probe Complete 02/21/17 15:53 Urine , Clean Catch Urine Culture Pending Received Assessment & Plan 76 year old female with history of Complete Heart Block, s/p Pacemaker Placement , Paroxysmal Atrial Fibrillation on Xarelto, s/p Ablation, Bronchiectasis, Hypothyroidism, presenting with chest pain starting yesterday. CHEST PAIN WITH HYPOTENSION - discussed with Dr. Chau possible Pericarditis, Hemopericardium continue Hydrocortisone, will add Colchicine hold Xarelto Dr. Chau discussing with [facility] for possible transfer Dissection unlikely per Dr. Chau patient not a candidate for CT due to anaphylaxis history, MRA due to pacemaker being incompatible not a good candidate for TWIN due to hypotension - cardiac markers negative echo: * -- Conclusions -- * Small pericardial effusion. * There are no echocardiographic indications of cardiac tamponade. * The left ventricle is normal in size. * Ejection Fraction = 60-65%. * The right ventricular systolic function is normal. * The left atrial size is normal. * Right atrial size is normal. * No significant valvular pathology. - Infection? afebrile, mild WBC elevation of 11 blood cultures: pending urine cultures:pending holding antibiotics - Adrenal Insufficiency, Hypothyroidism ruled out PAROXYSMAL A FIB, COMPLETE HEART BLOCK S/P PACEMAKER, ABLATION - hold Sotalol and Xarelto Cardiology on board BRONCHIECTASIS - respiratory status stable - monitor for signs/symptoms of aspiration pneumonia - continue Spiriva HYPOTHYROIDISM - on levothyroxine DVT prophylaxis - SCDs for now Code Status Full Code per patient Disposition will need PT/OT usually lives at home VTE Prophylaxis VTE Risk Assessment Done? Y/N: Yes Risk Level: Moderate Given or contraindicated: Other Anticoagulation (on xarelto) Current Inpatient Medications: Current Inpatient Medications Medications (Trade) Dose Ordered Sig/Amauri Route Start Time Stop Time Status Last Admin Dose Admin Metoclopramide HCl (Reglan Inj) 10 mg Q6H PRN IV 02/21/17 13:00 03/23/17 12:59 Sodium Chloride 1,000 ml @ 125 mls/hr Q8H IV 02/21/17 15:00 03/23/17 14:59 02/22/17 06:35 125 MLS/HR Acetaminophen (Tylenol Tab) 650 mg Q4H PRN PO 02/21/17 13:30 03/23/17 13:29 Sertraline HCl (Zoloft Tab) 100 mg HS PO 02/21/17 21:00 03/23/17 20:59 02/21/17 20:59 100 MG Tiotropium [place] (Spiriva Handihaler Inhaler) 2 puff QAM INH 02/22/17 09:00 03/24/17 08:59 Dopamine HCl/ Dextrose 0 ml @ 0 mls/hr Q0M PRN IV 02/21/17 18:28 03/23/17 18:27 02/22/17 06:36 10 MLS/HR Colchicine (Colchicine Tab) 0.6 mg BID PO 02/22/17 21:00 03/24/17 20:59 Colchicine (Colchicine Tab) 0.6 mg NOW ONCE PO 02/22/17 10:00 02/22/17 10:01 Prednisone (PredniSONE TAB) 40 mg DAILY PO 02/23/17 09:00 03/25/17 08:59 Pantoprazole Sodium (Protonix Tab) 40 mg QAM PO 02/23/17 09:00 03/25/17 08:59 Levothyroxine Sodium (Synthroid Tab) 100 mcg DAILYBB PO 02/22/17 11:00 03/24/17 10:59
[2017-02-22] MEDS ORDERED: LEVOTHYROXINE 100 MCG TAB PO SCH (11:00)
[2017-02-22] MEDS ORDERED: PANTOprazole INJ 40 MG in SYRINGE 0 ML IV SCH (11:00)
--- NOTE | 2017-02-22 11:04 | Cardiology Follow-Up ---
Subjective General Date of Service: Feb 22, 2017. Chief Complaint: follow up chest pain, pericardial effusion Pt evaluation today including: conversation w/ patient, physical exam History of Present Illness The patient is a 76 year old female seen in follow up. Pt presented with chest pain and hypotension yesterday, CT and echo reveals small to moderate circumferential pericardial effusion, new compared to echo performed 12/04/16. Pt was hypotensive of presentation yesterday, second BP recorded in record was 69/48 mm Hg. She received IV fluid with NS and has been on dopamine via peripheral IV at 3 mcg/ kg/min, now 2.5 mcg/kg/ min. SBP stable now on dopamine 2.5 and NS at 125 mg /hour with SBP 110-120 mm Hg, but has had recurrent hypotension with attempts to wean dopamine. Pt 's renal function and urine outpt remain normal. She is mentating well, smiling and in no acute distress at present. Has no current chest pain, last episode was last evening. Troponin is negative x 4, and ESR is normal at 14. EKG reveals SR AV sequential paced. Allergies Coded Allergies: Iodinated Diagnostic Agents (Verified Allergy, Severe, ANAPHYLAXIS, ) Shellfish (Verified Allergy, Severe, "Seafood" -- ANAPHYLAXIS, 02/21/17) Erythromycin (Verified Allergy, Intermediate, RASH, 02/21/17) Penicillins (Verified Allergy, Intermediate, RASH, 02/21/17) FROM CHILDHOOD Simvastatin (Verified Allergy, Intermediate, RASH, 02/21/17) Celecoxib (Verified Allergy, Mild, RASH, 02/21/17) Nystatin (Verified Allergy, Mild, RASH, 02/21/17) Moxifloxacin (Verified Adverse Reaction, Intermediate, HALUCINATIONS, 02/21) Fish (Verified Adverse Reaction, Mild, GI SYMPTOMS, 02/21/17) Social History Smoking Status: Never Smoker Hx Tobacco Use In Past Year?: No Hx Alcohol Use - Type And Amou: No Hx Substance Use - Type And Am: No Problem List Medical Problems: (1) Atrial fibrillation with RVR Status: Acute (2) Atrial fibrillation with RVR Status: Acute (3) Elevated troponin Status: Acute (4) Hx of gastroesophageal reflux (GERD) Status: Acute (5) PAC (premature atrial contraction) Status: Acute (6) Pericardial effusion Status: Acute (7) Precordial chest pain Status: Acute (8) Precordial chest pain Status: Acute (9) Substernal chest pain Status: Acute Social History Problems: (1) Status post placement of cardiac pacemaker Status: Acute Physical Exam Vital Signs Last Vital Signs Documentation Date Time Temp Pulse Resp B/P (MAP) Pulse Ox O2 Delivery O2 Flow Rate FiO2 02/22/17 10:00 36.8 78 19 108/77 (87) 95 Nasal Cannula 2.0 Physical Exam Constitutional: Level of Distress: NAD ENMT: normal ENT inspection Neck: supple Lungs: Auscultation: no wheezing, no rales/crackles, no rhonchi Cardiovascular: Heart Auscultation: RRR, no murmurs, no rubs Abdomen: Inspection & Palpation: soft, non-distended Extremities: no edema Neurologic: Gait & Station: pertinent finding (no focal deficits ) Assessment and Plan Assessment and Plan I reviewed CT images independenlty and discussed CT with radiologist melodie. The density of the pericardial effusion is consistent with hemopericardium. Echo reviewed, max dimension of the effusion is 1.2 cm in diastole at the apex. No chidi tamponade, but RV filling dose appear impaired, IVC diameter is normal on limited visualization Impression: 1. Chest pain (improved) , ongoing hypotension despite IVF requiring low dose dopamine, and circumferential pericardial effusion / hemopericardium in pt with pacemaker , AV node ablation 3 months ago who has been on anticoagulation with Xarelto 2. PAF, device check reveals 7 hr episode of AF yesterday, brief episode of AF on 02/06, now back in SR 3. On sotalol for continue rhythm control per EP (described in 01/29/17 outpt EP note , Dr Samayoa)- Sotalol on hold at present due to hypotension 4. Underlying severe lung disease, bronchiectasis, stable at present , no lung exacerbation Discussion / plan: TSH is normal. There was discussion about if this was an atypical presentation for thoracic aorta dissection, no evidence by non contrast CT, pt has past anaphylaxis with iodine. Clinically this does not seem to be due to dissection, pain is resolved, non hypertensive on presentation, no h/o aortic aneurysm. Had 4 doses of IV hydrocortisone for presumed adrenal insufficiency and for potential contrast allergy prophylaxis in case enhances CT performed , may this helps with the CP, however given low ESR, and CT findings I think this is a hemopericardium without significant inflammatory component. Device check 02/11/17 , and lead impendence, pacing thresholds are stable suggesting no chidi lead perforation, however microperforation of the screw apparatus is a possibility. At present my clinical suspicion of aortic dissection is low, and I do not think it warrants the risk of contrast CT given iodine allergy, unable to perform MRI due to pacer dependence, and BP is to tenuous for TWIN. Plan to hold Xarelto. I discussed case with [place] Samayoa of [place] at [facility] [place] Rosenberg of clinical cardiology [place] [facility] Rosenberg accepts pt in transfer for consideration of CT surgery consult for pericardial window as I am not optimistic this is going to improve with conservative observation off of anticoagulation. Will transfer [place] [facility] [place]. Laboratory Results Last 24 Hours Test 02/21/17 12:19 02/21/17 13:47 02/21/17 13:50 02/21/17 15:53 Random Cortisol 52.37 mcg/dl Lyme Disease IgG Antibody NEG Lyme Disease IgM Antibody NEG Hemoglobin 14.1 g/dL Hematocrit 43.4 % Total Creatine Kinase 108 U/L Creatine Kinase MB 1.6 ng/ml Creatine Kinase MB Ratio 1.5 Troponin I < 0.015 ng/ml Bedside Hemoglobin 15.0 g/dl Bedside Hematocrit 44 % Bedside Sodium 141 mEq/L Bedside Potassium 4.6 mEq/L Bedside Chloride 106 mEq/L Bedside Total CO2 22 mEq/l Anion Gap 18.0 mmol/L Bedside Blood Urea Nitrogen 19 mg/dl Bedside Creatinine 1.0 mg/dl Bedside Glucose (other) 204 mg/dl Bedside Ionized Calcium (Jose Alfredo) 1.15 mmol/l Urine Color DK YELLOW Urine Appearance CLOUDY Urine pH 5.0 Urine Specific [place] 1.015 Urine Protein 2+ Urine Glucose (UA) NEG Urine Ketones NEG Urine Occult Blood 1+ Urine Nitrite NEG Urine Bilirubin NEG Urine Urobilinogen NEG Urine Leukocyte Esterase NEG Urine WBC (Auto) 1-5 /hpf Urine RBC (Auto) 5-10 /hpf Urine Hyaline Casts (Auto) >30 /lpf Urine Epithelial Cells (Auto) >30 /lpf Urine Bacteria (Auto) NEG Urine Renal Epithelial Cells 0-5 /lpf Urine Pathogenic Casts 5-10 GRANULAR CASTS /lpf Test 02/21/17 16:54 02/21/17 19:17 02/22/17 00:15 02/22/17 01:29 Bedside Glucose 160 mg/dl 172 mg/dl Hemoglobin 14.2 g/dL 13.5 g/dL Hematocrit 43.5 % 42.9 % Total Creatine Kinase 76 U/L 57 U/L Creatine Kinase MB 1.1 ng/ml 0.8 ng/ml Creatine Kinase MB Ratio 1.4 1.4 Troponin I 0.022 ng/ml 0.018 ng/ml Test 02/22/17 06:07 02/22/17 06:56 Bedside Glucose 155 mg/dl White Blood Count 11.68 K/uL Red Blood Count 4.25 M/uL Hemoglobin 12.9 g/dL Hematocrit 39.8 % Mean Corpuscular Volume 93.6 fL Mean Corpuscular Hemoglobin 30.4 pg Mean Corpuscular Hemoglobin Concent 32.4 g/dl Platelet Count 149 K/uL Mean Platelet Volume 10.1 fL Neutrophils (%) (Auto) 86.7 % Lymphocytes (%) (Auto) 6.0 % Monocytes (%) (Auto) 7.0 % Eosinophils (%) (Auto) 0.0 % Basophils (%) (Auto) 0.0 % Neutrophils # (Auto) 10.13 K/uL Lymphocytes # (Auto) 0.70 K/uL Monocytes # (Auto) 0.82 K/uL Eosinophils # (Auto) 0.00 K/uL Basophils # (Auto) 0.00 K/uL RDW Standard Deviation 50.3 fL RDW Coefficient of Variation 14.7 % Immature Granulocyte % (Auto) 0.3 % Immature Granulocyte # (Auto) 0.03 K/uL Sodium Level 141 mmol/L Potassium Level 4.4 mmol/L Chloride Level 114 mmol/L Carbon Dioxide Level 22 mmol/L Anion Gap 5.0 mmol/L Blood Urea Nitrogen 20 mg/dl Creatinine 0.85 mg/dl Est Creatinine Clear Calc Drug Dose 64.3 ml/min Estimated GFR () 76.6 Estimated GFR (Non- 66.1 BUN/Creatinine Ratio 23.7 Random Glucose 151 mg/dl Estimated Average Glucose 114 mg/dl Hemoglobin A1c 5.6 % Calcium Level 8.0 mg/dl Phosphorus Level 2.8 mg/dl Magnesium Level 2.1 mg/dl Total Bilirubin 0.7 mg/dl Direct Bilirubin 0.2 mg/dl Aspartate Amino Transf (AST/SGOT) 41 U/L Alanine Aminotransferase (ALT/SGPT) 61 U/L Alkaline Phosphatase 71 U/L Total Protein 6.2 gm/dl Albumin 3.0 gm/dl
[2017-02-22] MEDS ORDERED: CLC6 PO (11:42)
[2017-02-22] MEDS ORDERED: PRD20 PO (11:42)
--- NOTE | 2017-02-22 11:45 | Discharge Instructions ---
Discharge Instructions Date of Service Feb 22, 2017. Admission Reason for Admission: Hypotension Discharge Discharge Diagnosis / Problem: HYPOTENSION, POSSIBLE HEMOPERICARDIUM Discharge Goals Goal(s): Diagnostic testing, Therapeutic intervention Activity Recommendations Activity Level: Bedrest . Additional Information Patient informed of condition: Yes Advance Directives: No (UNKNOWN) DNR: No (PATIENT IS FULL CODE) Level of Care: Other ([facility]) Communicable Disease: No Prognosis: Other (GUARDED) Oxygen at (LPM): 2 LITERS Instructions / Follow-Up Instructions / Follow-Up PLEASE REFER TO SEPARATE MEDICAL RECONCILIATION SHEET FOR UPDATED INPATIENT MEDICATION LIST. REFER TO ACCOMPANYING HOSPITAL DISCHARGE SUMMARY FOR FURTHER DETAILS. Current Hospital Diet Patient's current hospital diet: NPO EXCEPT MEDS Discharge Diet Recommended Diet: N/A (NPO EXCEPT MEDS) Procedures Procedures Performed: CT CHEST, ECHO Pending Studies Studies pending at discharge: yes List of pending studies: PER [facility]PO[facility]ER IN [facility] Physician Orders On Transfer Special Precautions: PLEASE REFER TO SEPARATE MEDICAL RECONCILIATION SHEET FOR UPDATED INPATIENT MEDICATION LIST. REFER TO ACCOMPANYING HOSPITAL DISCHARGE SUMMARY FOR FURTHER DETAILS. Laboratory Results Hemoglobin A1c Test 02/22/17 06:56 Range/Units Estimated Average Glucose 114 mg/dl Hemoglobin A1c 5.6 4.5-5.6 % Medical Emergencies . Who to Call and When: Medical Emergencies: If at any time you feel your situation is an emergency, please call 911 immediately. . Non-Emergent Contact Non-Emergency issues call your: Primary Care Provider, Information And Data Architect Analyst Call Non-Emergent contact if: you have a fever, your pain is not controlled, your pain is worsening, you have any medication questions . Past History Medical & Surgical History: (1) Chest pain (2) Hypotension (3) Pericardial effusion (4) Hx of gastroesophageal reflux (GERD) (5) Hypothyroidism (6) GERD (gastroesophageal reflux disease) (7) HLD (hyperlipidemia) (8) Paroxysmal a-fib (9) Bronchiectasis (10) Osteoarthritis (11) Osteoporosis (12) Rapid atrial fibrillation (13) H/O arthroscopic knee surgery (14) H/O partial thyroidectomy (15) History of tonsillectomy (16) History of appendectomy (17) Hx of cholecystectomy (18) History of sinus surgery (19) History of tubal ligation . "Provider Documentation" section prepared by Ramos Obando. . Core Measure Problem Core Measures: None
--- NOTE | 2017-02-22 11:49 | Discharge Summary ---
Discharge Summary Date of Service Feb 22, 2017. Discharge Summary Admission Date: Feb 21, 2017 at 12:24 Discharge Date: Feb 22, 2017 Discharge Disposition: Acute care facility Principal Diagnosis: CHEST PAIN WITH HYPOTENSION, POSSIBLE HEMOPERICARDIUM Secondary Diagnoses/Problems: PLEASE REFER TO HOSPITAL COURSE BELOW. Procedures: ECHO, CHEST CT Consultations: CARDIOLOGY, FRUCTOSE LOADER Pending Studies/Follow-Up: PLEASE REFER TO SEPARATE MEDICAL RECONCILIATION SHEET FOR UPDATED INPATIENT MEDICATION LIST; PLEASE REFER TO HOSPITAL COURSE BELOW FOR FURTHER DETAILS. Medication Reconciliation New Medications: Colchicine (Colcrys) 0.6 Mg Tab 0.6 MG PO BID for 30 Days, #60 TAB Prednisone (Prednisone) 20 Mg Tab 40 MG PO DAILY for 30 Days, #60 TAB Continued Medications: Biotin (Biotin) 5 Mg Tab 5 MG PO 3XWK TAKES FRIDAY/FRIDAY/FRIDAY Calcium Citrate-Vitamin D (Calcium Citrate + D) 1 Tab Tab 1 TAB PO DAILY Fluticasone Propionate (Nasal) (Flonase Allergy Relief) 50 Mcg/Act Spr 1 SPRAY INH UD 1 SPRAY INTO EACH NOSTRIL EVERY EVENING Levothyroxine Sodium (Levothyroxine Sodium) 100 Mcg Tab 100 MCG PO QAM Probiotic Product (Probiotic) 1 Tab Tab 1 TAB PO 3XWK FRIDAY, FRIDAY, FRIDAY Ranitidine (Zantac) 150 Mg Tab 150 MG PO BID for 30 Days, #60 TAB 3 Refills Rosuvastatin Calcium (Crestor) 5 Mg Tab 5 MG PO 3XWK, TAB 5 Refills EVERY FRIDAY/FRIDAY/FRIDAY Sertraline (Zoloft) 100 Mg Tab 100 MG PO HS Tiotropium Plain (Spiriva Respimat) 2.5 Mcg/Act Spr 2 PUFF INH QAM, INHALER Discontinued Medications: Rivaroxaban (Xarelto) 20 Mg Tab 20 MG PO PM PATIENT TAKES WITH EVENING MEAL Sotalol Hcl (Sotalol Hcl) 80 Mg Tab 80 MG PO BID Admission Information HPI (per Admitting provider): 76 year old female with history of Complete Heart Block, s/p Pacemaker Placement , Paroxysmal Atrial Fibrillation on Xarelto, s/p Ablation, Bronchiectasis, Hypothyroidism, presenting with chest pain starting yesterday. Patient was at her usual state of health until yesterday, when she started to have chest discomfort, cannot remember if sharp or pressure, radiating to the neck, and her back, lasting for few hours. Had some mild nausea and shortness of breath, but no dizziness, diaphoresis. Pain subsided at night. This morning, the same chest pain recurred, prompting consult to the ER. At the ER, patient was noted to be hypotensive and had to be started on Dopamine. CT chest: possible bibasilar infiltrates, pericardial effusion 1cm. EKG no signs of acute ischemia, cardiac markers negative. On exam, patient was initially nauseated, relieved with Reglan. Not in distress, still reports moderate chest discomfort. Mentions diarrhea for the past few days, with occasional melena. Denies cough, dyspnea, changes with urination. No other symptoms. Physical Exam (per Admitting): General Appearance: WD/WN, no apparent distress Head: normocephalic, atraumatic Eyes: normal inspection, EOMI, sclerae normal ENT: normal ENT inspection, hearing grossly normal, pharynx normal Neck: supple, no adenopathy, thyroid normal, no JVD, trachea midline Respiratory/Chest: chest non-tender, lungs clear, normal breath sounds, no respiratory distress, no accessory muscle use Cardiovascular: regular rate, rhythm, no edema, no JVD, no murmur Abdomen/GI: normal bowel sounds, non tender, soft, no organomegaly Back: normal inspection, no CVA tenderness Extremities/Musculoskelatal: normal inspection, no calf tenderness, no pedal edema, non-tender Neurologic/Psych: continuous conveyor screen drier II-XII nml as tested, no motor/sensory deficits, alert , normal mood/affect, oriented x 3 Skin: normal color, warm/dry, no rash Lymphatic: no adenopathy Hospital Course 76 year old female with history of Complete Heart Block, s/p Pacemaker Placement , Paroxysmal Atrial Fibrillation on Xarelto, s/p Ablation, Bronchiectasis, Hypothyroidism, presenting with chest pain starting yesterday. CHEST PAIN WITH HYPOTENSION, POSSIBLE HEMOPERICARDIUM - discussed with Dr. Cahu possible Pericarditis, Hemopericardium continue Hydrocortisone, will add Colchicine hold Xarelto Dr. Chau discussing with [facility] for possible transfer Dissection unlikely per Dr. Chau patient not a candidate for CT due to anaphylaxis history, MRA due to pacemaker being incompatible not a good candidate for TWIN due to hypotension updated by Dr. Tekoa patient to be transferred to [facility] for Tertiary level of care, possible pericardial window - cardiac markers negative echo: * -- Conclusions -- * Small pericardial effusion. * There are no echocardiographic indications of cardiac tamponade. * The left ventricle is normal in size. * Ejection Fraction = 60-65%. * The right ventricular systolic function is normal. * The left atrial size is normal. * Right atrial size is normal. * No significant valvular pathology. - Infection? afebrile, mild WBC elevation of 11 blood cultures: pending urine cultures:pending holding antibiotics - Adrenal Insufficiency, Hypothyroidism ruled out PAROXYSMAL A FIB, COMPLETE HEART BLOCK S/P PACEMAKER, ABLATION - hold Sotalol and Xarelto Cardiology on board BRONCHIECTASIS - respiratory status stable - monitor for signs/symptoms of aspiration pneumonia - continue Spiriva HYPOTHYROIDISM - on levothyroxine DVT prophylaxis - SCDs for now Code Status Full Code per patient Disposition will need PT/OT usually lives at home VTE Prophylaxis VTE Risk Assessment Done? Y/N: Yes Risk Level: Moderate Given or contraindicated: Other Anticoagulation (on xarelto) Total time spent on discharge = 60 minutes This includes examination of the patient, discharge planning, medication reconciliation, and communication with other providers. Discharge Instructions Discharge Instructions Date of Service Feb 22, 2017. Admission Reason for Admission: Hypotension Discharge Discharge Diagnosis / Problem: HYPOTENSION, POSSIBLE HEMOPERICARDIUM Discharge Goals Goal(s): Diagnostic testing, Therapeutic intervention Activity Recommendations Activity Level: Bedrest . Additional Information Patient informed of condition: Yes Advance Directives: No (UNKNOWN) DNR: No (PATIENT IS FULL CODE) Level of Care: Other ([facility]) Communicable Disease: No Prognosis: Other (GUARDED) Oxygen at (LPM): 2 LITERS Instructions / Follow-Up Instructions / Follow-Up PLEASE REFER TO SEPARATE MEDICAL RECONCILIATION SHEET FOR UPDATED INPATIENT MEDICATION LIST. REFER TO ACCOMPANYING HOSPITAL DISCHARGE SUMMARY FOR FURTHER DETAILS. Current Hospital Diet Patient's current hospital diet: NPO EXCEPT MEDS Discharge Diet Recommended Diet: N/A (NPO EXCEPT MEDS) Procedures Procedures Performed: CT CHEST, ECHO Pending Studies Studies pending at discharge: yes List of pending studies: PER PIPING DRAFTER IN [facility] Physician Orders On Transfer Special Precautions: PLEASE REFER TO SEPARATE MEDICAL RECONCILIATION SHEET FOR UPDATED INPATIENT MEDICATION LIST. REFER TO ACCOMPANYING HOSPITAL DISCHARGE SUMMARY FOR FURTHER DETAILS. Laboratory Results Hemoglobin A1c Test 02/22/17 06:56 Range/Units Estimated Average Glucose 114 mg/dl Hemoglobin A1c 5.6 4.5-5.6 % Medical Emergencies . Who to Call and When: Medical Emergencies: If at any time you feel your situation is an emergency, please call 911 immediately. . Non-Emergent Contact Non-Emergency issues call your: Primary Care Provider, Chrome Plater Call Non-Emergent contact if: you have a fever, your pain is not controlled, your pain is worsening, you have any medication questions . Past History Medical & Surgical History: (1) Chest pain (2) Hypotension (3) Pericardial effusion (4) Hx of gastroesophageal reflux (GERD) (5) Hypothyroidism (6) GERD (gastroesophageal reflux disease) (7) HLD (hyperlipidemia) (8) Paroxysmal a-fib (9) Bronchiectasis (10) Osteoarthritis (11) Osteoporosis (12) Rapid atrial fibrillation (13) H/O arthroscopic knee surgery (14) H/O partial thyroidectomy (15) History of tonsillectomy (16) History of appendectomy (17) Hx of cholecystectomy (18) History of sinus surgery (19) History of tubal ligation . "Provider Documentation" section prepared by Ramos Obando. . Core Measure Problem Core Measures: None
--- NOTE | 2017-02-22 12:22 | Critical Care Progress Note ---
Critical Care Progress Note Date of Service Feb 22, 2017. Attending Dr. Martinez Subjective overall , she feels better, no chest pain, no sob, still BP dependant on dopamine. no dizziness or near syncopal feeling, no epigastric pain. Objective the pt was seen by Dr. Chau from cardiology appreciate the input, the pt with hx hypotension on presentation, pericardial effusion, concerns about aortic dissection now is less likely ( pain free). PM was checked by Dr. Chau, no dysfunction identified. Current SOFA Score SOFA Score Response (Comments) Value PaO2/FiO2 (mmHg) < 400 1 SaO2 / FIO2 221 - 301 1 Platelets (x10) > 150 0 Bilirubin (mg/dL) < 1.2 0 [place] Coma Score 15 0 Level of Hypotension MAP less than 70 1 Creatinine (mg/dL) < 1.2 0 Total 3 Assessment & Plan 1- hypotension , related to possible pericarditis or prolonged effect of the Sotalol . 2- no evidence of infectious process. 3- afib with CHB , s/p PM in 11/27. just been interrogated yesterday and no dysfunction reported. 4- bronchiectasis , minimal mucoid impaction in the lower lobes. 5- hypothyroidism with thyroidectomy yrs ago, possible adrenal insufficiency superimposed. 6- pericardial effusion, with ? pericarditis, seems to respond to steroids, she does not like prednisone as she was told she is allergic to it. Echo from 2 months ago did not reveal any pericardial effusion, hemopericardium is possible ( taking Xarelto) , but can not confirm it. 7- chest pain with pallor and hypotension , the pain was radiating towards the back concerning for aortic dissection, could not be evaluated ( anaphylaxis to IV contrast with ct), had a PM and MRA could not be done, TWIN could not be done as the pt been hypotensive on dopa. Plan: 1- continue with dopamine ( now on 3 mcg only). 2- IVF. 3- change levothyroxine to oral 100 mcg daily. 4- change hydrocortisone to po. can not take prednisone ( she was told she is allergic to it). 5- keep holding Xarelto. 6- Heparin sc for DVT prophylaxis. 7- change protonix to po 40 mg daily. 8- appreciate Dr. Chau and Dr. Obando input, the [place] is planned [place] [facility] given her case complexity. discussed with the nursing staff in details. discussed with Dr. Obando and Dr. Chau. CCT 45. Consults & Procedures Consultants: Dr. Chau Procedures: none Data Medications: Current Inpatient Medications Medications (Trade) Dose Ordered Sig/Amauri Route Start Time Stop Time Status Last Admin Dose Admin Metoclopramide HCl (Reglan Inj) 10 mg Q6H PRN IV 02/21/17 13:00 03/23/17 12:59 Sodium Chloride 1,000 ml @ 125 mls/hr Q8H IV 02/21/17 15:00 03/23/17 14:59 02/22/17 06:35 125 MLS/HR Acetaminophen (Tylenol Tab) 650 mg Q4H PRN PO 02/21/17 13:30 03/23/17 13:29 Sertraline HCl (Zoloft Tab) 100 mg HS PO 02/21/17 21:00 03/23/17 20:59 02/21/17 20:59 100 MG Tiotropium [place] (Spiriva Handihaler Inhaler) 2 puff QAM INH 02/22/17 09:00 03/24/17 08:59 02/22/17 10:10 2 PUFF Dopamine HCl/ Dextrose 0 ml @ 0 mls/hr Q0M PRN IV 02/21/17 18:28 03/23/17 18:27 02/22/17 06:36 10 MLS/HR Colchicine (Colchicine Tab) 0.6 mg BID PO 02/22/17 21:00 03/24/17 20:59 Prednisone (PredniSONE TAB) 40 mg DAILY PO 02/23/17 09:00 03/25/17 08:59 Pantoprazole Sodium (Protonix Tab) 40 mg QAM PO 02/23/17 09:00 03/25/17 08:59 Levothyroxine Sodium (Synthroid Tab) 100 mcg DAILYBB PO 02/22/17 11:00 03/24/17 10:59 02/22/17 11:21 100 MCG Vital Signs: Date Time Temp Pulse Resp B/P (MAP) Pulse Ox O2 Delivery O2 Flow Rate FiO2 02/22/17 10:00 36.8 78 19 108/77 (87) 95 Nasal Cannula 2.0 02/22/17 08:00 36.8 74 24 106/65 (79) 97 02/22/17 08:00 Room Air 02/22/17 06:31 72 20 85/58 (67) 96 Nasal Cannula 2.0 02/22/17 06:01 71 19 101/44 (63) 96 Nasal Cannula 2.0 02/22/17 05:02 71 17 66/52 (57) 96 Nasal Cannula 2.0 02/22/17 04:37 96 Nasal Cannula 2.0 02/22/17 04:32 78 23 97/71 (80) 95 Nasal Cannula 2.0 02/22/17 04:01 36.8 70 16 96/62 (73) 96 Nasal Cannula 2.0 02/22/17 03:31 70 10 93/56 (68) 96 Nasal Cannula 2.0 02/22/17 03:14 72 7 84/64 (71) 96 Nasal Cannula 2.0 02/22/17 02:31 70 4 97/58 (71) 97 Nasal Cannula 2.0 02/22/17 01:31 70 27 104/50 (68) 97 Nasal Cannula 2.0 02/22/17 01:01 74 25 91/64 (73) 97 Nasal Cannula 2.0 02/22/17 00:33 96 Nasal Cannula 2.0 02/22/17 00:31 70 19 104/55 (71) 97 Nasal Cannula 2.0 02/22/17 00:01 36.8 80 17 101/62 (75) 97 Nasal Cannula 2.0 02/21/17 23:31 81 20 91/52 (65) 97 Nasal Cannula 2.0 02/21/17 23:01 77 19 100/60 (73) 98 Nasal Cannula 2.0 02/21/17 22:31 81 19 89/64 (72) 97 Nasal Cannula 2.0 02/21/17 22:01 71 19 98/59 (72) 97 Nasal Cannula 2.0 02/21/17 21:31 75 21 93/53 (66) 98 Nasal Cannula 2.0 02/21/17 21:16 72 20 94/61 (72) 98 Nasal Cannula 2.0 02/21/17 21:01 75 33 92/68 (76) 97 Nasal Cannula 2.0 02/21/17 20:47 73 9 92/59 (70) 97 Nasal Cannula 2.0 02/21/17 20:32 85 19 108/52 (70) 96 Nasal Cannula 2.0 02/21/17 20:17 83 18 96/59 (71) Nasal Cannula 2.0 02/21/17 20:05 96 Nasal Cannula 2.0 02/21/17 20:01 36.8 76 20 153/119 (130) 94 Nasal Cannula 2.0 02/21/17 19:31 79 22 101/59 (73) 97 Nasal Cannula 2.0 02/21/17 19:17 74 19 102/59 (73) 97 Nasal Cannula 2.0 02/21/17 19:01 70 19 96/60 (72) 97 Nasal Cannula 2.0 02/21/17 17:17 71 21 93/55 (69) 97 02/21/17 17:15 72 19 95 02/21/17 17:00 71 27 96 02/21/17 16:46 70 20 86/53 (74) 95 02/21/17 16:45 70 19 95 02/21/17 16:31 70 22 91/50 (72) 95 02/21/17 16:30 70 17 95 02/21/17 16:16 70 19 97/52 (73) 95 02/21/17 16:15 70 20 96 02/21/17 16:01 70 16 99/64 (80) 95 02/21/17 16:00 70 18 95 02/21/17 15:46 70 18 105/50 (92) 96 02/21/17 15:45 70 24 95 02/21/17 15:31 71 18 105/55 (70) 94 02/21/17 15:30 71 30 94 02/21/17 15:16 70 17 93/63 (68) 96 02/21/17 15:15 70 17 95 02/21/17 15:15 70 17 93/63 (73) 96 02/21/17 15:06 36.8 70 20 107/52 95 Nasal Cannula 2.0 02/21/17 15:01 70 20 107/52 (84) 94 02/21/17 15:00 70 24 94 02/21/17 15:00 20 107/52 (70) 94 02/21/17 14:45 20 102/61 (75) 94 02/21/17 14:30 19 105/64 (78) 94 02/21/17 14:15 36.8 19 105/65 (78) 95 Nasal Cannula 2.0 02/21/17 14:00 71 20 87/54 96 02/21/17 13:45 71 20 87/54 96 Nasal Cannula 2.0 02/21/17 13:40 72 20 81/55 95 Room Air 02/21/17 13:20 70 22 94/57 94 Room Air 02/21/17 13:00 72 20 107/59 93 Nasal Cannula 2.0 02/21/17 12:54 71 20 93/53 90 Room Air 02/21/17 12:40 73 20 86/64 92 Nasal Cannula 2.0 02/21/17 12:30 79 20 90/58 93 Room Air 02/21/17 12:18 71 20 83/61 96 Room Air 02/21/17 12:09 74 20 76/50 93 Room Air Laboratory Results: Last 24 Hours Test 02/21/17 12:19 02/21/17 13:47 02/21/17 13:50 02/21/17 15:53 Random Cortisol 52.37 mcg/dl Lyme Disease IgG Antibody NEG Lyme Disease IgM Antibody NEG Hemoglobin 14.1 g/dL Hematocrit 43.4 % Total Creatine Kinase 108 U/L Creatine Kinase MB 1.6 ng/ml Creatine Kinase MB Ratio 1.5 Troponin I < 0.015 ng/ml Bedside Hemoglobin 15.0 g/dl Bedside Hematocrit 44 % Bedside Sodium 141 mEq/L Bedside Potassium 4.6 mEq/L Bedside Chloride 106 mEq/L Bedside Total CO2 22 mEq/l Anion Gap 18.0 mmol/L Bedside Blood Urea Nitrogen 19 mg/dl Bedside Creatinine 1.0 mg/dl Bedside Glucose (other) 204 mg/dl Bedside Ionized Calcium ([place]) 1.15 mmol/l Urine Color DK YELLOW Urine Appearance CLOUDY Urine pH 5.0 Urine Specific [place] 1.015 Urine Protein 2+ Urine Glucose (UA) NEG Urine Ketones NEG Urine Occult Blood 1+ Urine Nitrite NEG Urine Bilirubin NEG Urine Urobilinogen NEG Urine Leukocyte Esterase NEG Urine WBC (Auto) 1-5 /hpf Urine RBC (Auto) 5-10 /hpf Urine Hyaline Casts (Auto) >30 /lpf Urine Epithelial Cells (Auto) >30 /lpf Urine Bacteria (Auto) NEG Urine Renal Epithelial Cells 0-5 /lpf Urine Pathogenic Casts 5-10 GRANULAR CASTS /lpf Test 02/21/17 16:54 02/21/17 19:17 02/22/17 00:15 02/22/17 01:29 Bedside Glucose 160 mg/dl 172 mg/dl Hemoglobin 14.2 g/dL 13.5 g/dL Hematocrit 43.5 % 42.9 % Total Creatine Kinase 76 U/L 57 U/L Creatine Kinase MB 1.1 ng/ml 0.8 ng/ml Creatine Kinase MB Ratio 1.4 1.4 Troponin I 0.022 ng/ml 0.018 ng/ml Test 02/22/17 06:07 02/22/17 06:56 Bedside Glucose 155 mg/dl White Blood Count 11.68 K/uL Red Blood Count 4.25 M/uL Hemoglobin 12.9 g/dL Hematocrit 39.8 % Mean Corpuscular Volume 93.6 fL Mean Corpuscular Hemoglobin 30.4 pg Mean Corpuscular Hemoglobin Concent 32.4 g/dl Platelet Count 149 K/uL Mean Platelet Volume 10.1 fL Neutrophils (%) (Auto) 86.7 % Lymphocytes (%) (Auto) 6.0 % Monocytes (%) (Auto) 7.0 % Eosinophils (%) (Auto) 0.0 % Basophils (%) (Auto) 0.0 % Neutrophils # (Auto) 10.13 K/uL Lymphocytes # (Auto) 0.70 K/uL Monocytes # (Auto) 0.82 K/uL Eosinophils # (Auto) 0.00 K/uL Basophils # (Auto) 0.00 K/uL RDW Standard Deviation 50.3 fL RDW Coefficient of Variation 14.7 % Immature Granulocyte % (Auto) 0.3 % Immature Granulocyte # (Auto) 0.03 K/uL Sodium Level 141 mmol/L Potassium Level 4.4 mmol/L Chloride Level 114 mmol/L Carbon Dioxide Level 22 mmol/L Anion Gap 5.0 mmol/L Blood Urea Nitrogen 20 mg/dl Creatinine 0.85 mg/dl Est Creatinine Clear Calc Drug Dose 64.3 ml/min Estimated GFR () 76.6 Estimated GFR (Non- 66.1 BUN/Creatinine Ratio 23.7 Random Glucose 151 mg/dl Estimated Average Glucose 114 mg/dl Hemoglobin A1c 5.6 % Calcium Level 8.0 mg/dl Phosphorus Level 2.8 mg/dl Magnesium Level 2.1 mg/dl Total Bilirubin 0.7 mg/dl Direct Bilirubin 0.2 mg/dl Aspartate Amino Transf (AST/SGOT) 41 U/L Alanine Aminotransferase (ALT/SGPT) 61 U/L Alkaline Phosphatase 71 U/L Total Protein 6.2 gm/dl Albumin 3.0 gm/dl
[2017-02-22] MEDS ORDERED: COLCHICINE 0.6 MG TAB PO SCH (21:00)
[2017-02-23] MEDS ORDERED: PANTOprazole SOD 40 MG TAB PO SCH (09:00)
[2017-03-28] MEDS ORDERED: PRED10TA PO (11:23)
[2017-03-28] MEDS ORDERED: CEFD1CAP14 PO (11:23)
[2017-03-28] MEDS ORDERED: LPR25 PO (11:23)
[2017-03-28] MEDS ORDERED: PRED-301 PO (11:23)
[2017-03-28] MEDS ORDERED: ASPEC81 PO (11:23)
== END 2017-02-22 17:40 | disposition short-term general hospital (02) | DRG 315 ==
LOC: C.EDB 08:25 → C.MSICU 12:24 → ENRESERV 12:53
PROVIDERS: ADMIT Internal Medicine; ATTEND Internal Medicine
DX: I31.2 Hemopericardium, not elsewhere classified (principal); E27.40 Unspecified adrenocortical insufficiency; I44.2 Atrioventricular block, complete; K21.9 Gastro-esophageal reflux disease without esophagitis; E78.5 Hyperlipidemia, unspecified; I10 Essential (primary) hypertension; I48.0 Paroxysmal atrial fibrillation; I95.9 Hypotension, unspecified; J47.9 Bronchiectasis, uncomplicated; E03.9 Hypothyroidism, unspecified; Z79.01 Long term (current) use of anticoagulants; Z79.899 Other long term (current) drug therapy; Z87.891 Personal history of nicotine dependence; Z91.041 Radiographic dye allergy status; Z95.0 Presence of cardiac pacemaker

== ENCOUNTER 2017-02-27 23:40 | Inpatient (IN) | payer OTHER ==
[~2017-02-27] VITALS: Ht 172.7 cm; Wt 86.0 kg
[~2017-02-27 23:40] MED LIST changes: +CLC6 PO; +FLUT0.15 NAE; -LEVA45AE INH; -MOME1AER5 INH; +PRD20 PO; -RIVA1TAB4 PO; -SOTA80TA PO; +TIOT1SPR INH
[2017-02-28] MEDS ORDERED: ASPI325T45 PO (00:24)
[2017-02-28] MEDS ORDERED: SOTA80TA PO (00:29)
[2017-02-28] MEDS ORDERED: FLAX10007 PO (00:29)
[2017-02-28] MEDS ORDERED: POLYSOL4 OP (00:29)
[2017-02-28] MEDS ORDERED: LEVA45AE PO (00:32)
[2017-02-28] MEDS ORDERED: FURO-85 PO (00:32)
[2017-02-28] MEDS ORDERED: POTA10CA28 PO (00:32)
[2017-02-28] MEDS ORDERED: XPNINS125 NEB (00:32)
[2017-02-28 01:12] LABS: BASO % 0.2 %; BASO ABS # 0.01 K/uL (0-0.2); COMPLETE YES; EOS % 2.9 %; HEMATOCRIT 34.7 % (37-47); IG% 0.6 %; LYMPH % 25.9 %; MEAN CELL VOLUME 91.3 fL (80-100); MEAN CORPUSCULAR HEMOGLOBIN 30.3 pg (25-34); MEAN CORPUSCULAR HGB CONC 33.1 g/dl (32-36); MEAN PLATELET VOLUME 9.9 fL (7.4-10.4); MONO % 10.7 %; NEUT % 59.7 %; PLATELET COUNT 201 K/uL (130-400); WHITE BLOOD COUNT 6.56 K/uL (4.8-10.8)
[2017-02-28 01:21] LABS: BUN/CREATININE RATIO 13.3 (10-20); CALCIUM 8.9 mg/dl (8.5-10.1); CREATININE 0.71 mg/dl (0.60-1.20); POTASSIUM 3.6 mmol/L (3.5-5.1)
--- NOTE | 2017-02-28 01:25 | EMERGENCY ROOM VISIT NOTE ---
History Report prepared by Cecily: John Scruggs Under the Supervision of: Dr. Jenna Nolan D.O. First contact with patient: 00:16 Chief Complaint: CARDIAC ASSESSMENT Stated Complaint: CHEST PRESSURE Nursing Triage Summary: Pt arrived via [facility] from home. Per pt, she was having "upper body pressure like my body was closing in on me" and "unsteadiness" at around 2230 tonight. Recent admission to [facility] for pericardial effusion and transfer to [place]. Home Friday night. Pt states she was told to call 911 if she developed any cardiac symptoms or her BP was high. Checked BP at home and found systolic pressure to be in the 180s. Called 911. Denies CP. Report SOB with exertion, which is not new since the effusion. Upon arrival pt states she no longer feels the "upper body pressure" but now she feels "spacey". Pt has pace maker and is in PACED rhythm. History of Present Illness The patient is a 76 year old female who presents to the Emergency Room with complaints of resolved upper body tightness that occurred 2 hours ago. The patient states that she had a pace maker implanted in November. She reports that she has been feeling great since, and she is able to exercise accordingly. The patient notes that one week ago she was seen in the ED because she was short of breath and had chest discomfort. The patient reports that she was told she had a pericardial effusion and was hypotensive. She was flown to [facility]. She reports that she was in the cardiac ICU and was told she had fluid in her pericardial area. They considered pericardial aspiration and surgery. She states that she was told that her symptoms were caused by Xarelto. They stopped that medication. She states that she is now on 650mg of aspirin three times a day for seven days, and then slowly decrease her frequency. The patient reports that she is still becoming short of breath when she tries to move and stand. She notes that 2 hours ago, she was in her kitchen and suddenly experienced a warm feeling and tightness in her upper body. The patient states that she felt sick and checked her blood pressure. She reports that her blood pressure was 185/106. The patient notes that she has also been experiencing edema to her hands and feet. She states that she was dehydrated and started retaining water. The patient reports that she now feels bloated and has not been eating as much. She notes that she gained 15 pounds of fluid and has lost about half of it. The patient states that she was placed on Lasix and potassium , but the pharmacy was out of Lasix and will not have it in until tomorrow. She reports that while she was in the hospital, she noticed a small vibration in her chest that was not there before her pace maker was implanted. The patient notes that this morning she had a chest x-ray and a urine culture. She states that the urine culture was not back yet, and her chest x-ray showed slightly enlarged bilateral pleural effusions and an unchanged cardiac silhouette from 5 days ago. The patient denies new back pain other than arthritis and abdominal pain. Source of History: patient Onset: two hours ago Position: other (upper body) Quality: other (tightness) Timing: resolved Associated Symptoms: + SOB, + fatigue, No abdominal pain, No back pain Note: Associated symptoms: edema to the hands and feet, warmth feeling, bloated, decreased appetite Review of Systems See HPI for pertinent positives & negatives. A total of 10 systems reviewed and were otherwise negative. Past Medical & Surgical Medical Problems: (1) Bronchiectasis (2) Chest pain (3) CHF (congestive heart failure) (4) GERD (gastroesophageal reflux disease) (5) HLD (hyperlipidemia) (6) Hypotension (7) Hypothyroidism (8) Osteoarthritis (9) Osteoporosis (10) Paroxysmal a-fib (11) Rapid atrial fibrillation Surgical Problems: (1) H/O arthroscopic knee surgery (2) H/O partial thyroidectomy (3) History of appendectomy (4) History of sinus surgery (5) History of tonsillectomy (6) History of tubal ligation (7) Hx of cholecystectomy Family History Patient reports no known family medical history. Social History Smoking Status: Never Smoker Alcohol Use: occasionally Drug Use: none Marital Status: Housing Status: lives with family Occupation Status: retired Current/Historical Medications Scheduled Aspirin (Aspirin), 325 MG PO UD Biotin (Biotin), 5 MG PO 3XWK Calcium Citrate-Vitamin D (Calcium Citrate + D), 1 TAB PO DAILY Colchicine (Colcrys), 0.6 MG PO BID Flaxseed (Linseed) (Flax Seed Oil), 1,000 MG PO DAILY Fluticasone Propionate (Nasal) (Flonase Allergy Relief), 1 SPRAY BERNICE QPM Furosemide (Lasix), 20 MG PO DAILY Levothyroxine Sodium (Levothyroxine Sodium), 100 MCG PO QAM Polyethylene Glycol-Propylene (Systane), 1 DROPS OP UD Potassium Chloride (Micro-K Ext Rel), 10 MEQ PO DAILY Probiotic Product (Probiotic), 1 TAB PO 3XWK Ranitidine (Zantac), 150 MG PO BID Rosuvastatin Calcium (Crestor), 5 MG PO 3XWK Sertraline (Zoloft), 100 MG PO HS Sotalol Hcl (Sotalol Hcl), 80 MG PO BID Tiotropium [place] (Spiriva Respimat), 2 PUFF INH QAM Scheduled PRN Levalbuterol (Levalbuterol HCl), 3 ML NEB Q8 PRN for Wheezing Levalbuterol Tartrate (Levalbuterol Tartrate Hfa), 1 PUFF PO Q6 PRN for Wheezing Allergies Coded Allergies: Iodinated Diagnostic Agents (Verified Allergy, Severe, ANAPHYLAXIS, ) Shellfish (Verified Allergy, Severe, "Seafood" -- ANAPHYLAXIS, 02/21/17) Erythromycin (Verified Allergy, Intermediate, RASH, 02/21/17) Penicillins (Verified Allergy, Intermediate, RASH, 02/21/17) FROM CHILDHOOD Simvastatin (Verified Allergy, Intermediate, RASH, 02/21/17) Celecoxib (Verified Allergy, Mild, RASH, 02/21/17) Nystatin (Verified Allergy, Mild, RASH, 02/21/17) Moxifloxacin (Verified Adverse Reaction, Intermediate, HALUCINATIONS, 02/21) Fish (Verified Adverse Reaction, Mild, GI SYMPTOMS, 02/21/17) Physical Exam Vital Signs Date Time Temp Pulse Resp B/P (MAP) Pulse Ox O2 Delivery O2 Flow Rate FiO2 02/28/17 02:20 84 23 95 02/28/17 02:00 150/90 02/28/17 01:50 73 21 91 02/28/17 01:45 78 17 91 02/28/17 01:31 158/90 02/28/17 01:15 70 19 92 02/28/17 01:00 148/93 02/28/17 00:45 78 19 95 02/28/17 00:15 70 20 94 02/28/17 00:10 70 21 94 02/28/17 00:00 146/84 02/27/17 23:51 75 02/27/17 23:34 96 Room Air 02/27/17 23:34 96 Room Air 02/27/17 23:34 37.0 78 23 156/90 96 Room Air Physical Exam HEENT: Head - normocephalic and atraumatic Pupils are equal, round, and reactive to light. Extraocular eye muscles are intact, and sclera are anicteric. Nose - moist nasal mucosa without discharge. Mouth - moist buccal mucosa. Oropharynx is nonerythematous and there is no tonsillar exudate or edema noted. Neck: Supple; no JVD, nuchal rigidity, cervical lymphadenopathy, or auscultated bruits. Heart: Regular rate and rhythm. There is a normal S1 and S2 with no murmurs, clicks, or gallops appreciated. No muffled heart tone. Lungs: Absent breath sounds in both lung bases, rales throughout the rest of the lung le. Abdomen: Soft, completely nontender, nondistended, with good bowel sounds. There are no palpable pulsatile masses or hepatosplenomegaly. There is no guarding, rigidity, or rebound noted. Extremities: No evidence of cyanosis or clubbing. Trace pedal edema. There are easily palpable peripheral pulses. Trace edema in her hands. Skin: warm and dry with good turgor and no rashes. Medical Decision & Procedures ER Provider Diagnostic Interpretation: X-ray results as stated below per interpretation by me: Chest 2 views routine: bilateral pleural effusion, mild pulmonary congestion, implantable pace maker in place, Laboratory Results 02/27/17 23:30 Red Blood Count 3.80, Mean Corpuscular Volume 91.3, Mean Corpuscular Hemoglobin 30.3, Mean Corpuscular Hemoglobin Concent 33.1, Mean Platelet Volume 9.9, Neutrophils (%) (Auto) 59.7, Lymphocytes (%) (Auto) 25.9, Monocytes (%) (Auto) 10.7, Eosinophils (%) (Auto) 2.9, Basophils (%) (Auto) 0.2, Neutrophils # (Auto ) 3.92, Lymphocytes # (Auto) 1.70, Monocytes # (Auto) 0.70, Eosinophils # (Auto ) 0.19, Basophils # (Auto) 0.01 Test 02/27/17 23:30 02/28/17 00:50 White Blood Count 6.56 K/uL (4.8-10.8) Red Blood Count 3.80 M/uL (4.2-5.4) Hemoglobin 11.5 g/dL (12.0-16.0) Hematocrit 34.7 % (37-47) Mean Corpuscular Volume 91.3 fL (80-100) Mean Corpuscular Hemoglobin 30.3 pg (25-34) Mean Corpuscular Hemoglobin Concent 33.1 g/dl (32-36) Platelet Count 201 K/uL (130-400) Mean Platelet Volume 9.9 fL (7.4-10.4) Neutrophils (%) (Auto) 59.7 % Lymphocytes (%) (Auto) 25.9 % Monocytes (%) (Auto) 10.7 % Eosinophils (%) (Auto) 2.9 % Basophils (%) (Auto) 0.2 % Neutrophils # (Auto) 3.92 K/uL (1.4-6.5) Lymphocytes # (Auto) 1.70 K/uL (1.2-3.4) Monocytes # (Auto) 0.70 K/uL (0.11-0.59) Eosinophils # (Auto) 0.19 K/uL (0-0.5) Basophils # (Auto) 0.01 K/uL (0-0.2) RDW Standard Deviation 48.8 fL (36.4-46.3) RDW Coefficient of Variation 14.7 % (11.5-14.5) Immature Granulocyte % (Auto) 0.6 % Immature Granulocyte # (Auto) 0.04 K/uL (0.00-0.02) Est Creatinine Clear Calc Drug Dose 79.1 ml/min Magnesium Level 1.9 mg/dl (1.8-2.4) Total Bilirubin 0.4 mg/dl (0.2-1) Aspartate Amino Transf (AST/SGOT) 23 U/L (15-37) Alanine Aminotransferase (ALT/SGPT) 42 U/L (12-78) Alkaline Phosphatase 67 U/L (45-117) Total Creatine Kinase 71 U/L (26-192) Creatine Kinase MB 1.8 ng/ml (0.5-3.6) Creatine Kinase MB Ratio 2.5 (0-3.0) Pro-B-Type Natriuretic Peptide 44219 pg/ml (0-1800) Total Protein 6.2 gm/dl (6.4-8.2) Albumin 3.2 gm/dl (3.4-5.0) Globulin 3.0 gm/dl (2.5-4.0) Albumin/Globulin Ratio 1.1 (0.9-2) Thyroid Stimulating Hormone (TSH) 5.260 uIu/ml (0.300-4.500) Free Thyroxine 1.45 ng/dl (0.80-1.60) Urine Color YELLOW Urine Appearance CLEAR (CLEAR) Urine pH 5.5 (4.5-7.5) Urine Specific [place] 1.012 (1.000-1.030) Urine Protein NEG (NEG) Urine Glucose (UA) NEG (NEG) Urine Ketones NEG (NEG) Urine Occult Blood 1+ (NEG) Urine Nitrite NEG (NEG) Urine Bilirubin NEG (NEG) Urine Urobilinogen NEG (NEG) Urine Leukocyte Esterase TRACE (NEG) Urine WBC (Auto) 1-5 /hpf (0-5) Urine RBC (Auto) 5-10 /hpf (0-4) Urine Hyaline Casts (Auto) 1-5 /lpf (0-5) Urine Epithelial Cells (Auto) >30 /lpf (0-5) Urine Bacteria (Auto) NEG (NEG) Laboratory results per my review. Medications Administered Medications (Trade) Dose Ordered Sig/Amauri Route Start Time Stop Time Status Last Admin Dose Admin Furosemide (Lasix Inj) 40 mg NOW STAT IV 02/28/17 01:52 02/28/17 01:54 DC 02/28/17 01:56 40 MG Procedure 0152: Ordered Lasix Inj 40mg IV ECG Indication: other (upper body tightness) Rate (beats per minute): 72 Findings: no acute ischemic change, no ectopy ED Course 0031: The patient was evaluated in room B10. A complete history and physical examination were performed. Nursing notes and previous electronic medical records were reviewed. IV lock was established and labs were drawn as above. The patient had a twelve-lead EKG as described above. Showed a chest x-ray with the above findings. 0152: Ordered Lasix Inj 40mg IV 0153: I attempted to reevaluate the patient, but she was sleeping. Her O2 Sat was normal on room air, and her blood pressure stabilized. 0210: I reevaluated the patient, and I had a long conversation with the patient. She said she already feels better, since she urinated twice already. 218: I spoke with Dr. Oreilly of the [facility]. The patient will be evaluated for further management and care. He suggested that I speak with the on-call [facility] lab asst. 0223: I discussed the patient's case with Dr. Chau, [facility] Outsole Handler. He said it is fine for the patient to stay here and an echocardiogram will be performed in the morning. 0228: Upon reevaluation, I discussed findings and results with the patient. She verbalized agreement of the treatment plan. Medical Decision The patient is a 76 year old female who presents to the ED with upper body tightness. Differential diagnosis includes CHF, cardiac ischemia, malfunctioning pacemaker, enlarging pericardial effusion. Lab results show: normal WBC, anemic with hemoglobin of 11.5, normal platelet count, TSH of 5.2, [place] [address], troponin of 0.024, albumin of 3.2, normal glucose, normal renal function, Urinalysis: 1+ blood, 5-10 red blood cells, trace leukocyte esterase. The patient was recently discharged from [facility] in [place] after being treated for a pericardial effusion. This was thought to be secondary to Xarelto. They stopped that medication and put her on aspirin for pericarditis. The patient has developed increasing shortness of breath and chest heaviness. Chest x-ray shows obvious bilateral pleural effusions and evidence of congestive heart failure. She was given IV Lasix here in the emergency department and I discussed the case with the [facility] Hospitalist and they will evaluate for further management. Dr. Chau will see her in the a.m. and perform an echocardiogram to further evaluate the status of her pericardial effusion. Medication Reconcilliation Current Medication List: was personally reviewed by me Blood Pressure Screening Patient's blood pressure: Elevated blood pressure The patient's blood pressure will be monitored by the Hospitalist. Consults Time Called: 211 Consulting Physician: Dr. Oreilly, [facility] Returned Call: [address] Oreilly of the [facility]. The patient will be evaluated for further management and care. He suggested that I speak with the on-call [facility] lab asst. Additional Consults: Time Called: 219 Consulted Physician: [facility] Outsole Handler Returned Call: 222 Additional Comments: I discussed the patient's case with [facility] Outsole Handler. He said it is fine for the patient to stay here and an echocardiogram will be performed in the morning. Impression Primary Impression: Bilateral pleural effusion Scribe Attestation The scribe's documentation has been prepared under my direction and personally reviewed by me in its entirety. I confirm that the note above accurately reflects all work, treatment, procedures, and medical decision making performed by me. Departure Information Dispostion Being Evaluated By Hospitalist Referrals Trang Allan D.O. (PCP) Patient Instructions My [facility]
[2017-02-28 01:31] LABS: ALB/GLOB RATIO 1.1 (0.9-2); CKMB/CK RATIO 2.5 (0-3.0); THYROID STIMULATING HORMONE 5.26 uIu/ml (0.300-4.500)
[2017-02-28 01:35] LABS: URINE APPEARANCE CLEAR (CLEAR); URINE BILIRUBIN NEG (NEG); URINE COLOR YELLOW; URINE EPITHELIAL CELL AUTO >30 /lpf (0-5); URINE NITRITE NEG (NEG); URINE PH 5.5 (4.5-7.5); URINE SPECIFIC GRAVITY 1.012 (1.000-1.030); UROBILINOGEN NEG (NEG)
[2017-02-28 01:37] LABS: MANUAL MICROSCOPIC REQUIRED? NO; REVIEW REQ? NO
[2017-02-28] MEDS ORDERED: FUROSEMIDE 40 MG/4 ML VIAL IV STA (01:52)
[2017-02-28] MEDS ORDERED: POTASSIUM CHLORIDE 10 MEQ TABCR PO STA (02:41)
[2017-02-28 02:42] LABS: MAGNESIUM 1.9 mg/dl (1.8-2.4)
[2017-02-28 03:30] VITALS: BP 155/90; PULSE 72; TEMP 37; O2SAT 94; Ht 172.7 cm; Wt 86.0 kg
[2017-02-28] MEDS ORDERED: ALBUT/IPRATROP 3MG/0.5MG NEB 3 ML VIAL INH PRN (03:30)
[2017-02-28] MEDS ORDERED: NITROGLYCERIN 0.4 MG SL PER TAB CHARGE SL PRN (03:30)
[2017-02-28] MEDS ORDERED: LORAZEPAM 2 MG/ML 1 ML VIAL IV PRN (03:30)
[2017-02-28] MEDS ORDERED: MoRPHine SULFATE 4 MG/ML 1 ML CARP\\VIAL IV PRN (03:30)
[2017-02-28] MEDS ORDERED: ONDANSETRON INJ 2 MG/ML 2 ML VIAL IV PRN (03:30)
[2017-02-28] MEDS ORDERED: TRAMADOL HCL 50 MG TAB PO PRN (03:30)
[2017-02-28] MEDS ORDERED: ACETAMINOPHEN 325 MG TAB PO PRN (03:30)
[2017-02-28] MEDS ORDERED: LORAZEPAM INJ 0.5 MG in SYRINGE 0.75 ML IV PRN (05:00)
[2017-02-28] MEDS ORDERED: MAGNESIUM SULFATE 1GM / D5W 1 GM in PREMIXED IN D5W 100 ML IV ONE (05:00)
[2017-02-28 06:01] LABS: BASO % 0.4 %; BASO ABS # 0.03 K/uL (0-0.2); COMPLETE YES; EOS % 2.8 %; HEMATOCRIT 37.5 % (37-47); IG% 0.3 %; LYMPH % 23.6 %; LYMPH ABS # 1.67 K/uL (1.2-3.4); MEAN CELL VOLUME 89.9 fL (80-100); MEAN CORPUSCULAR HGB CONC 33.3 g/dl (32-36); MONO % 9.9 %; PLATELET COUNT 195 K/uL (130-400); RED BLOOD COUNT 4.17 M/uL (4.2-5.4); WHITE BLOOD COUNT 7.07 K/uL (4.8-10.8)
[2017-02-28 06:33] LABS: BUN/CREATININE RATIO 11.1 (10-20); CALCIUM 9.3 mg/dl (8.5-10.1); CREATININE 0.81 mg/dl (0.60-1.20); POTASSIUM 3.4 mmol/L (3.5-5.1)
[2017-02-28] MEDS: LEVOTHYROXINE 100 MCG TAB PO SCH (06:35)
--- NOTE | 2017-02-28 06:43 | DIAGNOSTIC IMAGING REPORT ---
CHEST 2 VIEWS ROUTINE CLINICAL HISTORY: eval. For pleural effusions dyspnea COMPARISON STUDY: 02/21/2017 FINDINGS: Developing left and to lesser extent right basilar parenchymal infiltrates. Small bilateral pleural effusions. A component of congestive failure is not excluded. Right perihilar atelectasis. Bipolar cardiac pacemaker. IMPRESSION: Developing bibasilar parenchymal infiltrates and small bilateral pleural effusions. A component of congestive failure is not excluded. The above report was generated using voice recognition software. It may contain grammatical, syntax or spelling errors. Electronically signed by: Garry Torres M.D. 02/28/2017 6:42 AM Dictated Date/Time: 02/28/2017 6:41 AM
[2017-02-28] MEDS ORDERED: ARTIFICIAL TEARS OP SOLN OP PRN ×2 (06:45)
[2017-02-28 07:13] VITALS: BP 119/70; PULSE 85; TEMP 36.7; O2SAT 91
--- NOTE | 2017-02-28 07:46 | HISTORY & PHYSICAL EXAMINATION ---
DATE OF ADMISSION: 02/28/2017 PRIMARY CARE DOCTOR: Dr. Trang Allan. CHIEF COMPLAINT: High blood pressure, shortness of breath. HISTORY OF PRESENT ILLNESS: History obtained from patient and records. 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 History of PVD. Recent confinement last week for hypotension, hemopericardium possibly from Xarelto. Patient transferred to [facility], was admitted there from 02/22/2017 to 02/25/2017. A 2D echo done showed EF 50-59%, small less than 5 mm pericardial effusion, no cardiac tamponade. CT of the chest done in [place] showed moderate sized intermediate density pericardial effusion compatible to hemopericardium. CT surgery consulted. No need for surgical intervention. Medical management recommended. Patient discharged on colchicine and aspirin course. TTE on discharge, 02/25/2017, showed small less than 5 mm pericardial effusion, larger collection of fluid around the right ventricle, unchanged from previous study. No tamponade. Repeat TTE recommended in a week. As per discharge note, if effusion is stable , the patient can be started on Coumadin without bridging. Patient discharged on colchicine 3-month course and 2-week high-dose aspirin taper. 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 Shortness of breath on exertion even on discharge from [place]. Patient noted 10-15 pound gain from recent confinements. Bilateral arm and leg swelling. Patient feels bloated, loose stools. No chest pain, although patient noted vibration-like sensation in chest from time to time. Patient compliant with aspirin taper. Patient has not been able to comply w/ colchicine Rx secondary to need for insurance authorization. Patient seen at PCP's office yesterday. Outpatient chest x-ray showed small bilateral pleural effusions, appeared slightly increased compared to prior radiographs. Patient prescribed Lasix. Unavailable at at patient's pharmacy yesterday . Patient was to [employer] prescription the morning. Blood pressure noted to be high at home, SBP 180s. At the Emergency Room, the patient's chest x-ray showed bilateral pleural effusions. The patient given Lasix. Marked relief noted after diuresis. MEDICAL HISTORY: As above. SURGERIES: She has had a knee surgery, thyroidectomy, appendectomy, sinus surgery, tonsillectomy, pacemaker placement, tubal ligation and cholecystectomy. HOME MEDICATIONS: Include aspirin taper, furosemide, levalbuterol, Biotin, Colchicine course (has not been able to start ), fluticasone, levothyroxine, Systane, potassium chloride, probiotic, ranitidine, rosuvastatin, sertraline, ipratropium. ALLERGIES: CELECOXIB, ERYTHROMYCIN, FISH, AVELOX, STATIN, PENICILLIN, XARELTO, SHELLFISH, SIMVASTATIN. FAMILY HISTORY: Heart disease. 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 REVIEW OF SYSTEMS: As per HPI. all other ROS negative. PHYSICAL EXAMINATION: VITAL SIGNS: Blood pressure was noted to be 150/90, pulse rate 70, RR 21, temperature 37, sats 91 on room air. GENERAL: Noted to be slightly anxious, occ has speaking in phrases/ has to catch her breath during speech. SKIN: Pallor. HEENT: Pale palpebral conjunctivae. Dry mucosa. NECK: Short neck. LUNGS: Decreased breath sounds. HEART: Regular rate and rhythm. ABDOMEN: Some distention. Nontender EXTREMITIES: Bilateral lower extremity edema, no tenderness. NEUROLOGIC: No gross focality. LABS: Hemoglobin was noted to be 11.5, white blood cell count 6.7, platelets noted to be 201. Sodium noted to be 140, potassium 3.6, chloride 112, CO2 of 24, BUN 9, creatinine 1, glucose 103, BNP 11,519. Troponin 0.024. EKG paced rhythm. as per my interpretation Chest x-ray as per my interpretation showed atelectasis, bilateral pleural effusion, cardiomegaly. ASSESSMENT: 1. Shortness of breath secondary to bilateral pleural effusions subacute heart failure residual fluid overload following IVF resuscitation during recent confinement for hypotension, hemopericardium attributed to Xarelto Marked symptomatic improvement after IV Lasix administration at the emergency room. 2. Pericarditis/hemopericardium attributed to Xarelto on high-dose aspirin taper px yet to start on home colchicine rx pending insurance authorization 3. Raphael leg swelling secondary to fluid overload residual rule out deep venous thrombosis. 3. Hypertension, slightly elevated, anxiety contributory. 4. Chronic anemia, hemoglobin baseline. 5. Complete heart block status post pacemaker placement. 6. History of PAF, paced rhythm, off anticoagulation for now, given recent hemopericardium. 7. Diarrhea, rule out Clostridium difficile. 8. Bronchiectasis as per records, chronic cough symptoms at baseline 9. Chronic anemia, hemoglobin at baseline PLAN: PCU. Diuretic therapy. Repeat TTE. Cardiology consult. RE follow up on pericardial effusion, CHF. ER physician already in touch with Dr. Chau over the phone. Strict IOs, daily weights, CHF education. Continue ASA and colchicine course for pericarditis. Lower extremity Dopplers rule out deep venous thrombosis Stool C. diff. DVT prophylaxis, SCDs, recent hemopericardium. Full code. MTDD
--- NOTE | 2017-02-28 08:25 | DIAGNOSTIC IMAGING REPORT ---
VENOUS DOPPLER LW EXT BILAT HISTORY: Pain. Edema. leg swelling COMPARISON STUDY: None. FINDINGS: There is normal compressibility, flow, and augmentation within the bilateral lower extremity deep venous systems. 3 cm right popliteal cyst IMPRESSION: No DVT within the right or left lower extremity. Small right popliteal cyst The above report was generated using voice recognition software. It may contain grammatical, syntax or spelling errors. Electronically signed by: Garry Torres M.D. 02/28/2017 8:24 AM Dictated Date/Time: 02/28/2017 8:23 AM
[2017-02-28] MEDS: TIOTROPIUM BROMIDE 5 PUFF/90 MCG INH INH SCH (08:32)
[2017-02-28] MEDS: POTASSIUM CHLORIDE 20 MEQ TABCR PO SCH (08:33)
[2017-02-28] MEDS: COLCHICINE 0.6 MG TAB PO SCH ×2 (08:33→21:01)
[2017-02-28] MEDS: ASPIRIN 325 MG ECTAB PO SCH ×3 (08:33→21:01)
[2017-02-28] MEDS: RANITIDINE HCL 150 MG TAB PO SCH ×2 (08:33→21:02)
[2017-02-28] MEDS: SOTALOL HCL 80 MG TAB PO SCH ×2 (08:34→21:00)
[2017-02-28] MEDS ORDERED: FUROSEMIDE INJ 40 MG in SYRINGE 0 ML IV ONE (09:00)
[2017-02-28] MEDS ORDERED: ROSUVASTATIN CALCIUM 5 MG TAB PO SCH (09:00)
[2017-02-28] MEDS ORDERED: LACTOBACILLUS ACIDOPHILUS (FLORANEX) TAB PO SCH (09:00)
[2017-02-28 11:29] VITALS: BP 135/85; PULSE 69; TEMP 36.9; O2SAT 94
--- NOTE | 2017-02-28 11:42 | ECHOCARDIOGRAM REPORT ---
*NOTICE TO RECEIVING LIBERTARIAN AGENCY This information is strictly Confidential and protected under [place] law. [place] law prohibits you from making any further disclosure of this information unless further disclosure is expressly permitted by the written consent of the person to whom it pertains or is authorized by law. A general authorization for the release of medical or other information is not sufficient for this purpose. Hospital accepts no responsibility if the information is made available to any other person, INCLUDING THE PATIENT. Interpretation Summary * Name: DAVIDE BARRIOS Study Date: 02/28/2017 09:57 AM BP: 119/70 mmHg * Patient Location: .MED\S\N287\S\2 HR: 70 * : 1940 (M/d/yyyy) Gender: Female Height: 68 in * Age: 76 yrs Ethnicity: [place] Weight: 193 lb * Ordering Physician: Donte Chau * Referring Physician: Self, Referred * Performed By: Chayo Hsieh RCS * * Reason For Study: F/U PERICARDIAL EFFUSION * BSA: 2.0 m2 * -- Conclusions -- * There is a small circumferential pericardial effusion. * There are no echocardiographic indications of cardiac tamponade. * Compared to the prior study dated 02/21/17, there has been an interval mild improvement in the pericardial effusion. * Small left pleural effusion. * Small right pleural effusion. Procedure Details * Limited views were obtained. Left Ventricle * The left ventricle is normal in size. * There is mild concentric left ventricular hypertrophy. * Left ventricular systolic function is normal. * Ejection Fraction = 65-70%. * The left ventricular wall motion is normal. * No regional wall motion abnormalities noted. Atria * The left atrium is moderately dilated. * Right atrial size is normal. Aortic Valve * The aortic valve is trileaflet. * Aortic stenosis is absent. Pericardium/Pleural * Small pericardial effusion. * There are no echocardiographic indications of cardiac tamponade. * Small left pleural effusion. * Small right pleural effusion. Great Vessels * The inferior vena cava was not imaged. MMode 2D Measurements and Calculations IVSd 1.1 cm IVSs 1.4 cm LVIDd 4.0 cm LVIDs 2.8 cm LVPWd 1.2 cm LVPWs 1.2 cm IVS/LVPW 0.91 FS 30.3 % EDV(Teich) 71.5 ml ESV(Teich) 29.9 ml EF(Teich) 58.2 % EDV(cubed) 65.7 ml ESV(cubed) 22.3 ml EF(cubed) 66.1 % % IVS thick 25.9 % % LVPW thick 1.0 % LV mass(C)d 159.7 grams LV mass(C)dI 79.3 grams/m\S\2 LV mass(C)s 115.6 grams LV mass(C)sI 57.4 grams/m\S\2 SV(Teich) 41.6 ml SI(Teich) 20.7 ml/m\S\2 SV(cubed) 43.5 ml SI(cubed) 21.6 ml/m\S\2 LVOT diam 2.0 cm LVOT area 3.2 cm\S\2
--- NOTE | 2017-02-28 14:24 | Cardiology Consultation ---
Cardiology Consultation Date of Consultation: Feb 28, 2017 History of Present Illness Catracho Penn is a 76 year old female seen in cardiology consultation per the request of Dr Oreilly for the evaluation of shortness of breath. 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 Jason Gonzalez of our practice and she follows with Dr. Samayoa of [facility]. The patient has a long-standing history of lung disease due to bronchiectasis as well as recurrent symptomatic paroxysmal atrial fibrillation. In Nov, 2016 she underwent implantation of a dual-chamber Medtronic pacemaker and AV junction ablation. She's been maintained on sotalol which has been effective at maintaining sinus rhythm. A week ago on 02/21/17, she had presented to [facility] with complaints of chest discomfort and was found to have profound hypotension with presenting blood pressure in the upper 60 mmHg range. She had undergone a contrast CT of the chest which revealed a small to moderate size circumferential pericardial effusion at that time with density consistent with hemopericardium. An echocardiogram revealed small circumferential pericardial effusion with no definite 9. The patient received aggressive resuscitation with IV fluids and also required transient support with dopamine. She had been initially seen in consultation by Dr. Qureshi of our practice on first day of her hospital stay, and I saw her in follow-up next day. I was concerned because she had continued low blood pressure refractory to fluid resuscitation and dopamine and therefore she was transferred to [facility] for further evaluation due to concerns that she may require surgical intervention to evacuate pericardial fluid/thrombus. She improved however with conservative therapy after arriving to [facility] with normalization of her blood pressure. Her Xarelto which had been placed on hold on admission here, was discontinued, and she was discharged with the planned high-dose aspirin taper and treatment with colchicine for inflammatory component /hemorrhagic component of her pericardial effusion. Based on chest x-ray noted during her hospital stay [facility], but appear she's developed small to moderate bilateral pleural effusions due to fluid resuscitation. She was discharged from [place] presented overnight last night with complaints of shortness of breath. She received 40 mg of IV furosemide overnight last night and again this morning and she feels markedly improved having had a vigorous diuretic effect. 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 A total of 10 systems reviewed and were otherwise negative. Allergies Coded Allergies: Iodinated Diagnostic Agents (Verified Allergy, Severe, ANAPHYLAXIS, ) Shellfish (Verified Allergy, Severe, "Seafood" -- ANAPHYLAXIS, 02/21/17) Erythromycin (Verified Allergy, Intermediate, RASH, 02/21/17) Penicillins (Verified Allergy, Intermediate, RASH, 02/21/17) FROM CHILDHOOD Simvastatin (Verified Allergy, Intermediate, RASH, 02/21/17) Celecoxib (Verified Allergy, Mild, RASH, 02/21/17) Nystatin (Verified Allergy, Mild, RASH, 02/21/17) Rivaroxaban (Verified Adverse Reaction, Severe, 0, 02/28/17) possivble hemorrhagic pericardial effusion Moxifloxacin (Verified Adverse Reaction, Intermediate, HALUCINATIONS, 02/21) Fish (Verified Adverse Reaction, Mild, GI SYMPTOMS, 02/21/17) Medications Reported Home Medications Medications Dose Route/Sig Max Daily Dose Days Date Category Dose Instructions Levalbuterol HCl (Levalbuterol) 1.25 Mg/3 Ml Nebu 3 Ml NEB Q8 PRN 02/28/17 Reported Levalbuterol Tartrate Hfa (Levalbuterol Tartrate) 45 Mcg/Act Aer 1 Puff PO Q6 PRN 02/28/17 Reported Micro-K Ext Rel (Potassium Chloride) 10 Meq Capcr 10 Meq PO DAILY 02/28/17 Reported Lasix (Furosemide) 20 Mg Tab 20 Mg PO DAILY 02/28/17 Reported Systane (Polyethylene Glycol-Propylene) 1 Rohini Rohini 1 Drops OP UD 02/28/17 Reported Sotalol Hcl 80 Mg Tab 80 Mg PO BID 02/28/17 Reported Flax Seed Oil (Flaxseed (Linseed)) 1,000 Mg Cap 1,000 Mg PO DAILY 02/28/17 Reported Aspirin 325 Mg Tab 325 Mg PO UD 02/28/17 Reported TAKE 2 TABS TID FOR 7 DAYS THEN 2 TABS BID FOR 4 DAYS THEN 2 TABS DAILY FOR 3 DAYS Colcrys (Colchicine) 0.6 Mg Tab 0.6 Mg PO BID 30 02/22/17 Rx Flonase Allergy Relief (Fluticasone Propionate (Nasal)) 50 Mcg/Act Spr 1 [place] BERNICE QPM 02/21/17 Reported Spiriva Respimat (Tiotropium [place]) 2.5 Mcg/Act Spr 2 Puff INH QAM 02/21/17 Reported Calcium Citrate + D (Calcium Citrate-Vitamin D) 1 Tab Tab 1 Tab PO DAILY 11/13/16 Reported Probiotic (Probiotic Product) 1 Tab Tab 1 Tab PO 3XWK 09/17/16 Reported FRIDAY, FRIDAY, FRIDAY Biotin 5 Mg Tab 5 Mg PO 3XWK 12/15/15 Reported TAKES FRIDAY/FRIDAY/FRIDAY Zoloft (Sertraline HCl) 100 Mg Tab 100 Mg PO HS 11/27/15 Reported Zantac (Ranitidine HCl) 150 Mg Tab 150 Mg PO BID 30 11/27/15 Reported Levothyroxine Sodium 100 Mcg Tab 100 Mcg PO QAM 11/27/15 Reported Crestor (Rosuvastatin Calcium) 5 Mg Tab 5 Mg PO 3XWK 11/27/15 Reported EVERY FRIDAY/FRIDAY/FRIDAY Physical Exam Vital Signs (Last 8hrs): Last 8 Hrs Date Time Temp Pulse Resp B/P (MAP) Pulse Ox O2 Delivery O2 Flow Rate FiO2 02/28/17 12:00 Room Air 02/28/17 11:29 36.9 69 16 135/85 (102) 94 02/28/17 08:00 Room Air 02/28/17 07:13 36.7 85 18 119/70 (86) 91 Room Air General Appearance: Alert and Oriented x3. NAD. Head: Normocephalic Atraumatic. Eyes: PERRLA, EOMI, conjunctiva and sclera clear Neck: Supple. No carotid bruits noted. No JVD. No HJD. Respiratory: Decreased breath sounds bilaterally to bases Cardiovascular: Reg rate and rhythm. S1 and S2 noted. No murmurs, rubs, gallops. PMI non displace. Abdomen: Normal bowel sounds, soft nontender. no abdominal bruits. Extremities: Trace ankle edema Neuro: No focal deficits. Psychiatric: Normal affect. Data Last Resulted 02/28/17 05:14 Red Blood Count 4.17, Mean Corpuscular Volume 89.9, Mean Corpuscular Hemoglobin 30.0, Mean Corpuscular Hemoglobin Concent 33.3, Mean Platelet Volume 10.0, Neutrophils (%) (Auto) 63.0, Lymphocytes (%) (Auto) 23.6, Monocytes (%) (Auto) 9.9, Eosinophils (%) (Auto) 2.8, Basophils (%) (Auto) 0.4, Neutrophils # (Auto) 4.45, Lymphocytes # (Auto) 1.67, Monocytes # (Auto) 0.70, Eosinophils # (Auto) 0.20, Basophils # (Auto) 0.03 Last Resulted 02/28/17 05:14 Past 24 Hours Test 02/27/17 23:30 02/28/17 05:14 Range/Units Creatine Kinase MB 1.8 0.5-3.6 ng/ml Creatine Kinase MB Ratio 2.5 0-3.0 Total Creatine Kinase 71 26-192 U/L Troponin I 0.024 0.016 0-0.045 ng/ml EKG performed on presentation at 2347 reveals atrial fibrillation/ flutter , with ventricular paced rhythm at 72 bpm Assessment & Plan Echocardiogram performed today revealed normal biventricular function with a small circumferential pericardial effusion. Compared to the study performed a week ago, there has been interval improvement in the size of the circumferential pericardial effusion. Chest x-ray reveals small left greater than right pleural effusion. Impression: 76-year-old female 1. Shortness of breath due to volume overload, is likely develop pleural effusions due to aggressive volume resuscitation that she received in the setting of hypotension and pericardial effusion week ago 2. Paroxysmal atrial fibrillation, EKG reveals atrial fibrillation, atrial flutter, ventricular pacing 3. History of dual-chamber Medtronic pacemaker, AV junction ablation, November 2016 for treatment of paroxysmal A. fib 4. Pericardial effusion, to be hemorrhagic, perhaps a mixed inflammatory, post procedure reaction in the setting of anticoagulation with Xarelto 5. Bronchiectasis, lungs stable from the standpoint of present. 6. Hypokalemia Plan: Patient is improved significantly from a clinical standpoint having had 2 doses of IV furosemide with noted 5 L of urine output so far. Potassium replacement has been replaced. For the time being, I recommend that we hold off on further diuretics and watch her blood pressure, joints, and renal function, and reduce her diuretic as needed tomorrow and urged to avoid recurrent low blood pressure. She is off of anticoagulation with Xarelto to the pericardial effusion. Her aspirin taper as ordered and discharged from [facility] has been reinitiated, she is currently on a dose of 650 mg 3 times a day, day 2 of 7, and then is to reduce this to 650 mg twice a day for 4 days, and then 650 daily 3 days. She was to be on a colchicine course as well, but she was awaiting for prior authorization from her insurance company for this, and therefore she had not been taking this as an outpatient. Unfortunately, she is back in atrial fibrillation, versus flutter, however her rate is well controlled status post AV junction ablation. She is not on full anticoagulation for stroke prophylaxis due to the pericardial effusion concerns. Continue sotalol. Recheck kidney function which was tomorrow. DVT prophylaxis: Ambulate, not on pharmacologic DVT prophylaxis due to the hemorrhagic pericardial effusion.
[2017-02-28 15:44] VITALS: BP 148/84; PULSE 74; TEMP 36.9; O2SAT 95
--- NOTE | 2017-02-28 16:19 | Cardiology Progress Note ---
Cardiology Progress Note Date of Service Feb 28, 2017. Cardiology Progress Note Knee-high sequential pneumatic compression devices were ordered for DVT prophylaxis in this patient who has had hospitalization, and is at risk for venous thromboembolism, and cannot be on anticoagulation or pharmacologic DVT prophylaxis due to hemorrhagic pericardial effusion. Tyrell Chau DO
--- NOTE | 2017-02-28 16:24 | Progress Note ---
Internal Med Progress Note Date of Service: Feb 28, 2017. Provider Documentation: SUBJECTIVE: Seen and examined at bedside. States having intermittent dry cough Denies chest pain, SOB. Leg swelling improved Offers no other complaints. OBJECTIVE: Vital Signs-as noted below Physical Exam: General Appearance:Moderately built and nourished, no apparent distress Head: normocephalic, Atraumatic Eyes: normal inspection, EOMI, PERRL Neck: supple, Trachea midline Respiratory/Chest: Normal breath sounds, CTA Cardiovascular: S1, S2, + murmur Abdomen/GI:Soft, Non tender, Bowel sounds present Extremities/Musculoskelatal:normal inspection, 1+ b/l LE edema Neurologic/Psych:grossly no focal neurological deficits Skin: normal color, warm Lab data as noted below. ASSESSMENT & PLAN: Volume Overload Secondary to aggressive volume resuscitation for hypotension and pericardial effusion week ago Presented with SOB on exertion, B/L Extremity swelling and weight gain CXR:suggestive of b/l parenchymal infiltrates and small b/l pleural effusions S/P IV lasix Good Urine output Monitor I/Os, daily weight Duonebs PRN Monitor volume status Venous Doppler: No DVT ECHO:small circumferential pericardial effusion, no echocardiographic indications of cardiac tamponade P.Afib H/O dual-chamber pacemaker, AV node ablation Continue Sotolol No a candidate for Anticoagulation ( Secondary to recent Hemorrhagic pericardial effusion) H/O Hemorrhagic Pericardial effusion Likely secondary to inflammatory process, post procedure in setting of anticoagulation with Xarelto Continue ASA taper 650mg TID day 2/7 (Plan to taper to 650 mg BID for 4 days, then 650 daily for 3 days) Continue Colchicine (Not taking at home secondary to Insurance Issues) Hypokalemia: replace and monitor Hypertension: Continue usual meds Chronic anemia: Hb at baseline. Hypothyroidism: Continue Levothyroxine Diarrhea: R/O C.diff: pending Also on Colchicine Bronchiectasis: Stable DVT Px: SCDs , recent hemopericardium. Code Status: Full code Disposition: Monitor in Tele PROCEDURES: ECHO; * There is a small circumferential pericardial effusion. * There are no echocardiographic indications of cardiac tamponade. * Compared to the prior study dated 02/21/17, there has been an interval mild improvement in the pericardial effusion. * Small left pleural effusion. * Small right pleural effusion. Vital Signs: Date Time Temp Pulse Resp B/P (MAP) Pulse Ox O2 Delivery O2 Flow Rate FiO2 02/28/17 16:00 Room Air 02/28/17 15:44 36.9 74 18 148/84 (105) 95 Room Air 02/28/17 12:00 Room Air 02/28/17 11:29 36.9 69 16 135/85 (102) 94 02/28/17 08:00 Room Air 02/28/17 07:13 36.7 85 18 119/70 (86) 91 Room Air 02/28/17 03:30 37.0 72 18 155/90 94 Room Air 02/28/17 03:07 72 20 152/94 94 02/28/17 02:20 84 23 95 02/28/17 02:00 150/90 02/28/17 01:50 73 21 91 02/28/17 01:45 78 17 91 02/28/17 01:31 158/90 02/28/17 01:15 70 19 92 02/28/17 01:00 148/93 02/28/17 00:45 78 19 95 02/28/17 00:15 70 20 94 02/28/17 00:10 70 21 94 02/28/17 00:00 146/84 02/27/17 23:51 75 02/27/17 23:34 96 Room Air 02/27/17 23:34 96 Room Air 02/27/17 23:34 37.0 78 23 156/90 96 Room Air Lab Results: Results Past 24 Hours Test 02/27/17 23:30 02/28/17 00:50 02/28/17 05:14 Range/Units White Blood Count 6.56 7.07 4.8-10.8 K/uL Red Blood Count 3.80 4.17 4.2-5.4 M/uL Hemoglobin 11.5 12.5 12.0-16.0 g/dL Hematocrit 34.7 37.5 37-47 % Mean Corpuscular Volume 91.3 89.9 80-100 fL Mean Corpuscular Hemoglobin 30.3 30.0 25-34 pg Mean Corpuscular Hemoglobin Concent 33.1 33.3 32-36 g/dl Platelet Count 201 195 130-400 K/uL Mean Platelet Volume 9.9 10.0 7.4-10.4 fL Neutrophils (%) (Auto) 59.7 63.0 % Lymphocytes (%) (Auto) 25.9 23.6 % Monocytes (%) (Auto) 10.7 9.9 % Eosinophils (%) (Auto) 2.9 2.8 % Basophils (%) (Auto) 0.2 0.4 % Neutrophils # (Auto) 3.92 4.45 1.4-6.5 K/uL Lymphocytes # (Auto) 1.70 1.67 1.2-3.4 K/uL Monocytes # (Auto) 0.70 0.70 0.11-0.59 K/uL Eosinophils # (Auto) 0.19 0.20 0-0.5 K/uL Basophils # (Auto) 0.01 0.03 0-0.2 K/uL RDW Standard Deviation 48.8 47.5 36.4-46.3 fL RDW Coefficient of Variation 14.7 14.7 11.5-14.5 % Immature Granulocyte % (Auto) 0.6 0.3 % Immature Granulocyte # (Auto) 0.04 0.02 0.00-0.02 K/uL Sodium Level 142 142 136-145 mmol/L Potassium Level 3.6 3.4 3.5-5.1 mmol/L Chloride Level 112 109 98-107 mmol/L Carbon Dioxide Level 24 28 21-32 mmol/L Anion Gap 6.0 5.0 3-11 mmol/L Blood Urea Nitrogen 9 9 7-18 mg/dl Creatinine 0.71 0.81 0.60-1.20 mg/dl Est Creatinine Clear Calc Drug Dose 79.1 67.5 ml/min Estimated GFR () 95.2 81.2 Estimated GFR (Non- 82.2 70.1 BUN/Creatinine Ratio 13.3 11.1 10-20 Random Glucose 103 123 70-99 mg/dl Calcium Level 8.9 9.3 8.5-10.1 mg/dl Magnesium Level 1.9 1.8-2.4 mg/dl Total Bilirubin 0.4 0.2-1 mg/dl Aspartate Amino Transf (AST/SGOT) 23 15-37 U/L Alanine Aminotransferase (ALT/SGPT) 42 12-78 U/L Alkaline Phosphatase 67 45-117 U/L Total Creatine Kinase 71 26-192 U/L Creatine Kinase MB 1.8 0.5-3.6 ng/ml Creatine Kinase MB Ratio 2.5 0-3.0 Troponin I 0.024 0.016 0-0.045 ng/ml Pro-B-Type Natriuretic Peptide 11100 0-1800 pg/ml Total Protein 6.2 6.4-8.2 gm/dl Albumin 3.2 3.4-5.0 gm/dl Globulin 3.0 2.5-4.0 gm/dl Albumin/Globulin Ratio 1.1 0.9-2 Thyroid Stimulating Hormone (TSH) 5.260 0.300-4.500 uIu/ml Free Thyroxine 1.45 0.80-1.60 ng/dl Urine Color YELLOW Urine Appearance CLEAR CLEAR Urine pH 5.5 4.5-7.5 Urine Specific [place] 1.012 1.000-1.030 Urine Protein NEG NEG Urine Glucose (UA) NEG NEG Urine Ketones NEG NEG Urine Occult Blood 1+ NEG Urine Nitrite NEG NEG Urine Bilirubin NEG NEG Urine Urobilinogen NEG NEG Urine Leukocyte Esterase TRACE NEG Urine WBC (Auto) 1-5 0-5 /hpf Urine RBC (Auto) 5-10 0-4 /hpf Urine Hyaline Casts (Auto) 1-5 0-5 /lpf Urine Epithelial Cells (Auto) >30 0-5 /lpf Urine Bacteria (Auto) NEG NEG Microbiology Results 02/28/17 Urine Culture, Received Pending
[2017-02-28 19:58] VITALS: BP_SYST 123; BP_SYST 162; BP_DIAS 76; BP_DIAS 84; PULSE 70; PULSE 72; TEMP 36.9; TEMP 37; O2SAT 93; O2SAT 98
[2017-02-28 20:58] VITALS: BP 147/89; PULSE 70
[2017-02-28] MEDS: FLUTICASONE PROPIONATE NA SPR 16 GM BTL NAE SCH (21:00)
[2017-02-28] MEDS: SERTRALINE HCL 100 MG TAB PO SCH (21:02)
[2017-03-01] VITALS (10 sets, daily range): BP systolic 109–144; BP diastolic 72–87; PULSE 70–88; TEMP 36.5–37.1; O2SAT 92–96
[2017-03-01] MEDS ORDERED: POTASSIUM CHLORIDE 10 MEQ TABCR PO STA ×2 (00:21→02:22)
[2017-03-01 00:44] LABS: BASO % 0.1 %; BASO ABS # 0.01 K/uL (0-0.2); COMPLETE YES; EOS % 3.8 %; HEMATOCRIT 36.9 % (37-47); IG% 0.3 %; LYMPH % 26.4 %; LYMPH ABS # 1.87 K/uL (1.2-3.4); MEAN CELL VOLUME 90.7 fL (80-100); MEAN CORPUSCULAR HEMOGLOBIN 29.2 pg (25-34); MEAN CORPUSCULAR HGB CONC 32.2 g/dl (32-36); MEAN PLATELET VOLUME 9.5 fL (7.4-10.4); MONO % 9.6 %; NEUT % 59.8 %; PLATELET COUNT 191 K/uL (130-400); RED BLOOD COUNT 4.07 M/uL (4.2-5.4); WHITE BLOOD COUNT 7.09 K/uL (4.8-10.8)
[2017-03-01 01:03] LABS: BUN/CREATININE RATIO 13.7 (10-20); CALCIUM 8.7 mg/dl (8.5-10.1); CREATININE 0.8 mg/dl (0.60-1.20); MAGNESIUM 2.5 mg/dl (1.8-2.4); POTASSIUM 3.3 mmol/L (3.5-5.1)
[2017-03-01] MEDS ORDERED: POTASSIUM CHLORIDE 10 MEQ TABCR PO ONE (05:00)
[2017-03-01] MEDS: LEVOTHYROXINE 100 MCG TAB PO SCH (05:38)
[2017-03-01] MEDS: COLCHICINE 0.6 MG TAB PO SCH ×2 (08:14→20:46)
[2017-03-01] MEDS: TIOTROPIUM BROMIDE 5 PUFF/90 MCG INH INH SCH (08:14)
[2017-03-01] MEDS: ASPIRIN 325 MG ECTAB PO SCH ×3 (08:14→20:47)
[2017-03-01] MEDS: RANITIDINE HCL 150 MG TAB PO SCH ×2 (08:14→20:47)
[2017-03-01] MEDS: POTASSIUM CHLORIDE 20 MEQ TABCR PO SCH (08:14)
[2017-03-01] MEDS: SOTALOL HCL 80 MG TAB PO SCH ×2 (08:14→20:46)
--- NOTE | 2017-03-01 13:56 | Progress Note ---
Internal Med Progress Note Date of Service: Mar 01, 2017. Provider Documentation: SUBJECTIVE: Seen and examined at bedside. Less cough Denies chest pain, SOB. Leg swelling much improved No new complaints OBJECTIVE: Vital Signs-as noted below Physical Exam: General Appearance:Moderately built and nourished, no apparent distress Head: normocephalic, Atraumatic Eyes: normal inspection, EOMI, PERRL Neck: supple, Trachea midline Respiratory/Chest: Normal breath sounds, CTA Cardiovascular: S1, S2, + murmur Abdomen/GI:Soft, Non tender, Bowel sounds present Extremities/Musculoskelatal:normal inspection, 1+ b/l LE edema Neurologic/Psych:grossly no focal neurological deficits Skin: normal color, warm Lab data as noted below ASSESSMENT & PLAN: Volume Overload Secondary to aggressive volume resuscitation for hypotension and pericardial effusion week ago Presented with SOB on exertion, B/L Extremity swelling and weight gain CXR:suggestive of b/l parenchymal infiltrates and small b/l pleural effusions S/P IV Lasix Good Urine output Monitor I/Os, daily weight Duonebs PRN Volume status improved Venous Doppler: No DVT ECHO:small circumferential pericardial effusion, no echocardiographic indications of cardiac tamponade Lost 10 kg since admission P.Afib H/O dual-chamber pacemaker, AV node ablation Continue Sotalol No a candidate for Anticoagulation ( Secondary to recent Hemorrhagic pericardial effusion) H/O Hemorrhagic Pericardial effusion Likely secondary to inflammatory process, post procedure in setting of anticoagulation with Xarelto Continue ASA taper 650mg TID day 3/7 (Plan to taper to 650 mg BID for 4 days, then 650 daily for 3 days) Continue Colchicine (Not taking at home secondary to Insurance Issues) Cardiology following Hypokalemia: replace and monitor Hypertension: Continue usual meds Chronic anemia: Hb at baseline. Hypothyroidism: Continue Levothyroxine Diarrhea: R/O C.diff: pending Also on Colchicine Bronchiectasis: Stable DVT Px: SCDs , recent hemopericardium. Code Status: Full code Disposition: Monitor in Tele PROCEDURES: ECHO; * There is a small circumferential pericardial effusion. * There are no echocardiographic indications of cardiac tamponade. * Compared to the prior study dated 02/21/17, there has been an interval mild improvement in the pericardial effusion. * Small left pleural effusion. * Small right pleural effusion. Vital Signs: Date Time Temp Pulse Resp B/P (MAP) Pulse Ox O2 Delivery O2 Flow Rate FiO2 03/01/17 12:00 Room Air 03/01/17 11:54 36.9 73 20 138/87 (104) 94 Room Air 03/01/17 08:05 36.6 70 18 126/86 (99) 94 Room Air 03/01/17 08:00 Room Air 03/01/17 04:02 36.5 70 18 114/79 (91) 93 Room Air 03/01/17 04:00 94 Room Air 03/01/17 00:14 36.8 70 20 121/78 (92) 94 Room Air 03/01/17 00:00 94 Room Air 02/28/17 20:58 70 147/89 (108) 02/28/17 20:00 Room Air 02/28/17 19:58 37.0 72 18 123/84 (97) 93 Room Air 02/28/17 16:00 Room Air 02/28/17 15:44 36.9 74 18 148/84 (105) 95 Room Air Lab Results: Results Past 24 Hours Test 03/01/17 00:34 Range/Units White Blood Count 7.09 4.8-10.8 K/uL Red Blood Count 4.07 4.2-5.4 M/uL Hemoglobin 11.9 12.0-16.0 g/dL Hematocrit 36.9 37-47 % Mean Corpuscular Volume 90.7 80-100 fL Mean Corpuscular Hemoglobin 29.2 25-34 pg Mean Corpuscular Hemoglobin Concent 32.2 32-36 g/dl Platelet Count 191 130-400 K/uL Mean Platelet Volume 9.5 7.4-10.4 fL Neutrophils (%) (Auto) 59.8 % Lymphocytes (%) (Auto) 26.4 % Monocytes (%) (Auto) 9.6 % Eosinophils (%) (Auto) 3.8 % Basophils (%) (Auto) 0.1 % Neutrophils # (Auto) 4.24 1.4-6.5 K/uL Lymphocytes # (Auto) 1.87 1.2-3.4 K/uL Monocytes # (Auto) 0.68 0.11-0.59 K/uL Eosinophils # (Auto) 0.27 0-0.5 K/uL Basophils # (Auto) 0.01 0-0.2 K/uL RDW Standard Deviation 47.4 36.4-46.3 fL RDW Coefficient of Variation 14.4 11.5-14.5 % Immature Granulocyte % (Auto) 0.3 % Immature Granulocyte # (Auto) 0.02 0.00-0.02 K/uL Sodium Level 140 136-145 mmol/L Potassium Level 3.3 3.5-5.1 mmol/L Chloride Level 107 98-107 mmol/L Carbon Dioxide Level 26 21-32 mmol/L Anion Gap 7.0 3-11 mmol/L Blood Urea Nitrogen 11 7-18 mg/dl Creatinine 0.80 0.60-1.20 mg/dl Est Creatinine Clear Calc Drug Dose 68.3 ml/min Estimated GFR () 82.4 Estimated GFR (Non- 71.1 BUN/Creatinine Ratio 13.7 10-20 Random Glucose 129 70-99 mg/dl Calcium Level 8.7 8.5-10.1 mg/dl Magnesium Level 2.5 1.8-2.4 mg/dl
--- NOTE | 2017-03-01 14:03 | Cardiology Follow-Up ---
Subjective General Date of Service: Mar 01, 2017. Pt evaluation today including: conversation w/ patient, physical exam, chart review, lab review, review of studies, review of inpatient medication list History of Present Illness The patient is a 76 year old female seen in follow-up. Edema has resolved. Denies chest pain or shortness of breath. Offers no complaints. Allergies Coded Allergies: Iodinated Diagnostic Agents (Verified Allergy, Severe, ANAPHYLAXIS, ) Shellfish (Verified Allergy, Severe, "Seafood" -- ANAPHYLAXIS, 02/21/17) Erythromycin (Verified Allergy, Intermediate, RASH, 02/21/17) Penicillins (Verified Allergy, Intermediate, RASH, 02/21/17) FROM CHILDHOOD Simvastatin (Verified Allergy, Intermediate, RASH, 02/21/17) Celecoxib (Verified Allergy, Mild, RASH, 02/21/17) Nystatin (Verified Allergy, Mild, RASH, 02/21/17) Rivaroxaban (Verified Adverse Reaction, Severe, 0, 02/28/17) possivble hemorrhagic pericardial effusion Moxifloxacin (Verified Adverse Reaction, Intermediate, HALUCINATIONS, 02/21) Fish (Verified Adverse Reaction, Mild, GI SYMPTOMS, 02/21/17) Social History Smoking Status: Never Smoker Hx Tobacco Use In Past Year?: No Hx Alcohol Use - Type And Amou: No Hx Substance Use - Type And Am: No Problem List Medical Problems: (1) Atrial fibrillation with RVR Status: Acute (2) Atrial fibrillation with RVR Status: Acute (3) Bilateral pleural effusion Status: Acute (4) Elevated troponin Status: Acute (5) Hx of gastroesophageal reflux (GERD) Status: Acute (6) PAC (premature atrial contraction) Status: Acute (7) Pericardial effusion Status: Acute (8) Precordial chest pain Status: Acute (9) Precordial chest pain Status: Acute (10) Substernal chest pain Status: Acute Social History Problems: (1) Status post placement of cardiac pacemaker Status: Acute Review of Systems Respiratory: No cough, No sputum, No wheezing, No shortness of breath, No dyspnea on exertion, No dyspnea at rest, No hemoptysis Cardiac: No chest pain, No orthopnea, No PND, No edema, No claudication, No palpitations Physical Exam Vital Signs Last Vital Signs Documentation Date Time Temp Pulse Resp B/P (MAP) Pulse Ox O2 Delivery O2 Flow Rate FiO2 03/01/17 12:00 Room Air 03/01/17 11:54 36.9 73 20 138/87 (104) 94 Physical Exam Constitutional: General Apperance: well-nourished Level of Distress: NAD Head: normocephalic, atraumatic ENMT: normal ENT inspection Neck: supple, trachea midline Lungs: Auscultation: breath sounds normal, no wheezing, no rales/crackles, no rhonchi Cardiovascular: Heart Auscultation: RRR, normal S1, normal S2, no murmurs, no rubs, no gallops Abdomen: Bowel Sounds: normal Inspection & Palpation: soft, non-distended, no tenderness, guarding & rebound Musculoskeletal: normal, normal strength (5/5 throughout) Extremities: no cyanosis, no edema, no clubbing, no ulcers Neurologic: Gait & Station: pertinent finding (no focal deficit) Cranial Nerves: grossly intact Assessment and Plan Assessment and Plan IMP: 1. Shortness of breath secondary to volume overload -Patient has diuresed more than 5 L after 2 doses of intravenous Lasix. -Edema has resolved and respiratory status has returned to baseline. 2. Paroxysmal atrial fibrillation - currently AV sequential pacing on telemetry 3. History of dual-chamber [employer] pacemaker, AV junction ablation, November 2016 for treatment of paroxysmal A. fib 4. Pericardial effusion, to be hemorrhagic, perhaps a mixed inflammatory, post procedure reaction in the setting of anticoagulation with Xarelto 5. Bronchiectasis - pulmonary status stable 6. Hypokalemia Plan: Repeat basic metabolic panel. I will not add chronic diuretic therapy at this time. Patient will continue current cardiovascular medications including aspirin and colchicine as previously ordered. She appears compensated from a cardiovascular perspective. She may be discharged with cardiology follow-up as scheduled. Will sign off at this time. Please call with questions. Laboratory Results Last 24 Hours Test 03/01/17 00:34 White Blood Count 7.09 K/uL Red Blood Count 4.07 M/uL Hemoglobin 11.9 g/dL Hematocrit 36.9 % Mean Corpuscular Volume 90.7 fL Mean Corpuscular Hemoglobin 29.2 pg Mean Corpuscular Hemoglobin Concent 32.2 g/dl Platelet Count 191 K/uL Mean Platelet Volume 9.5 fL Neutrophils (%) (Auto) 59.8 % Lymphocytes (%) (Auto) 26.4 % Monocytes (%) (Auto) 9.6 % Eosinophils (%) (Auto) 3.8 % Basophils (%) (Auto) 0.1 % Neutrophils # (Auto) 4.24 K/uL Lymphocytes # (Auto) 1.87 K/uL Monocytes # (Auto) 0.68 K/uL Eosinophils # (Auto) 0.27 K/uL Basophils # (Auto) 0.01 K/uL RDW Standard Deviation 47.4 fL RDW Coefficient of Variation 14.4 % Immature Granulocyte % (Auto) 0.3 % Immature Granulocyte # (Auto) 0.02 K/uL Sodium Level 140 mmol/L Potassium Level 3.3 mmol/L Chloride Level 107 mmol/L Carbon Dioxide Level 26 mmol/L Anion Gap 7.0 mmol/L Blood Urea Nitrogen 11 mg/dl Creatinine 0.80 mg/dl Est Creatinine Clear Calc Drug Dose 68.3 ml/min Estimated GFR () 82.4 Estimated GFR (Non- 71.1 BUN/Creatinine Ratio 13.7 Random Glucose 129 mg/dl Calcium Level 8.7 mg/dl Magnesium Level 2.5 mg/dl
[2017-03-01 15:25] LABS: BUN/CREATININE RATIO 14.7 (10-20); CALCIUM 9.1 mg/dl (8.5-10.1); CREATININE 0.85 mg/dl (0.60-1.20); POTASSIUM 4.7 mmol/L (3.5-5.1)
[2017-03-01] MEDS: FLUTICASONE PROPIONATE NA SPR 16 GM BTL NAE SCH (20:42)
[2017-03-01] MEDS: SERTRALINE HCL 100 MG TAB PO SCH (20:47)
[2017-03-02 04:27] VITALS: BP 121/79; PULSE 74; TEMP 36.9; O2SAT 92
[2017-03-02] MEDS: LEVOTHYROXINE 100 MCG TAB PO SCH (06:35)
[2017-03-02 06:55] VITALS: BP 146/73; PULSE 82; TEMP 36.5; O2SAT 95
[2017-03-02] MEDS: COLCHICINE 0.6 MG TAB PO SCH (06:58)
[2017-03-02] MEDS: RANITIDINE HCL 150 MG TAB PO SCH (06:58)
[2017-03-02] MEDS: SOTALOL HCL 80 MG TAB PO SCH (06:58)
[2017-03-02] MEDS: ASPIRIN 325 MG ECTAB PO SCH (06:58)
[2017-03-02] MEDS: POTASSIUM CHLORIDE 20 MEQ TABCR PO SCH (06:58)
[2017-03-02] MEDS: TIOTROPIUM BROMIDE 5 PUFF/90 MCG INH INH SCH (06:58)
[2017-03-02 08:44] LABS: BUN/CREATININE RATIO 18.8 (10-20); CREATININE 0.76 mg/dl (0.60-1.20); MAGNESIUM 2.2 mg/dl (1.8-2.4); POTASSIUM 4.4 mmol/L (3.5-5.1)
--- NOTE | 2017-03-02 11:26 | Progress Note ---
Internal Med Progress Note Date of Service: Mar 02, 2017. Provider Documentation: SUBJECTIVE: Seen and examined at bedside. States feels well Denies cough, chest pain, SOB. No new complaints OBJECTIVE: Vital Signs-as noted below Physical Exam: General Appearance:Moderately built and nourished, no apparent distress Head: normocephalic, Atraumatic Eyes: normal inspection, EOMI, PERRL Neck: supple, Trachea midline Respiratory/Chest: Normal breath sounds, CTA Cardiovascular: S1, S2, + murmur Abdomen/GI:Soft, Non tender, Bowel sounds present Extremities/Musculoskelatal:normal inspection, 1+ b/l LE edema Neurologic/Psych:grossly no focal neurological deficits Skin: normal color, warm Lab data as noted below ASSESSMENT & PLAN: Volume Overload Secondary to aggressive volume resuscitation for hypotension and pericardial effusion week ago Presented with SOB on exertion, B/L Extremity swelling and weight gain CXR:suggestive of b/l parenchymal infiltrates and small b/l pleural effusions S/P IV Lasix Good Urine output Monitor I/Os, daily weight Duonebs PRN Volume status improved Venous Doppler: No DVT ECHO:small circumferential pericardial effusion, no echocardiographic indications of cardiac tamponade Lost 10 kg since admission Volume status much improved No plan for chronic diuretic therapy per cardiology recommendations P.Afib H/O dual-chamber pacemaker, AV node ablation Continue Sotalol No a candidate for Anticoagulation ( Secondary to recent Hemorrhagic pericardial effusion) H/O Hemorrhagic Pericardial effusion Likely secondary to inflammatory process, post procedure in setting of anticoagulation with Xarelto Continue ASA taper 650mg TID day 4/7 (Plan to taper to 650 mg BID for 4 days, then 650 daily for 3 days) Continue Colchicine (Not taking at home secondary to Insurance Issues) Appreciate Cardiology Input Hypokalemia: Resolved monitor Hypertension: Continue usual meds Chronic anemia: Hb at baseline. Hypothyroidism: Continue Levothyroxine Diarrhea: R/O C.diff: pending Also on Colchicine Bronchiectasis: Stable DVT Px: SCDs , recent hemopericardium. Code Status: Full code Disposition: Follow up with in 1 week as advised Follow up your perinatal nurse in 2 weeks as advised Seek immediate medical attention if your symptoms reoccur or worsen Check your weight daily PROCEDURES: ECHO; * There is a small circumferential pericardial effusion. * There are no echocardiographic indications of cardiac tamponade. * Compared to the prior study dated 02/21/17, there has been an interval mild improvement in the pericardial effusion. * Small left pleural effusion. * Small right pleural effusion. Vital Signs: Date Time Temp Pulse Resp B/P (MAP) Pulse Ox O2 Delivery O2 Flow Rate FiO2 03/02/17 08:00 Room Air 03/02/17 06:55 36.5 82 20 146/73 (97) 95 Room Air 03/02/17 04:27 36.9 74 18 121/79 (93) 92 Room Air 03/02/17 04:00 Room Air 03/02/17 00:00 Room Air 03/01/17 23:27 37.1 72 18 109/72 (84) 96 Room Air 03/01/17 20:44 88 144/82 (102) 03/01/17 20:00 Room Air 03/01/17 19:45 37.0 80 18 114/79 (91) 92 Room Air 03/01/17 16:00 Room Air 03/01/17 15:37 36.8 87 20 127/80 (96) 95 Room Air 03/01/17 12:00 Room Air 03/01/17 11:54 36.9 73 20 138/87 (104) 94 Room Air Lab Results: Results Past 24 Hours Test 03/01/17 14:45 03/02/17 07:20 Range/Units Sodium Level 140 139 136-145 mmol/L Potassium Level 4.7 4.4 3.5-5.1 mmol/L Chloride Level 108 108 98-107 mmol/L Carbon Dioxide Level 27 26 21-32 mmol/L Anion Gap 5.0 5.0 3-11 mmol/L Blood Urea Nitrogen 13 14 7-18 mg/dl Creatinine 0.85 0.76 0.60-1.20 mg/dl Est Creatinine Clear Calc Drug Dose 63.2 71.2 ml/min Estimated GFR () 76.6 87.7 Estimated GFR (Non- 66.1 75.7 BUN/Creatinine Ratio 14.7 18.8 10-20 Random Glucose 94 87 70-99 mg/dl Calcium Level 9.1 9.0 8.5-10.1 mg/dl Magnesium Level 2.2 1.8-2.4 mg/dl
[2017-03-02] MEDS ORDERED: COLCHICINE 0.6 MG TAB PO SCH (11:30)
--- NOTE | 2017-03-02 11:32 | Discharge Summary ---
Discharge Summary Date of Service Mar 02, 2017. Discharge Summary Admission Date: Feb 28, 2017 at 02:37 Discharge Date: Mar 02, 2017 Discharge Disposition: Home Principal Diagnosis: Volume Overload Procedures: CXR: Developing bibasilar parenchymal infiltrates and small bilateral pleural effusions. A component of congestive failure is not excluded. Venous Doppler: No DVT within the right or left lower extremity. Small right popliteal cyst Consultations: Cardiology Pending Studies/Follow-Up: Follow up with in 1 week as advised Follow up your weed inspector in 2 weeks as advised Seek immediate medical attention if your symptoms reoccur or worsen Check your weight daily Medication Reconciliation Continued Medications: Aspirin (Aspirin) 325 Mg Tab 325 MG PO UD TAKE 2 TABS TID FOR 7 DAYS THEN 2 TABS BID FOR 4 DAYS THEN 2 TABS DAILY FOR 3 DAYS Biotin (Biotin) 5 Mg Tab 5 MG PO 3XWK TAKES FRIDAY/FRIDAY/FRIDAY Calcium Citrate-Vitamin D (Calcium Citrate + D) 1 Tab Tab 1 TAB PO DAILY Colchicine (Colcrys) 0.6 Mg Tab 0.6 MG PO BID for 30 Days, #60 TAB Flaxseed (Linseed) (Flax Seed Oil) 1,000 Mg Cap 1000 MG PO DAILY Fluticasone Propionate (Nasal) (Flonase Allergy Relief) 50 Mcg/Act Spr 1 SPRAY BERNICE QPM Levalbuterol (Levalbuterol HCl) 1.25 Mg/3 Ml Nebu 3 ML NEB Q8 PRN for Wheezing Levalbuterol Tartrate (Levalbuterol Tartrate Hfa) 45 Mcg/Act Aer 1 PUFF PO Q6 PRN for Wheezing Levothyroxine Sodium (Levothyroxine Sodium) 100 Mcg Tab 100 MCG PO QAM Polyethylene Glycol-Propylene (Systane) 1 Rohini Rohini 1 DROPS OP UD, #30 ML 6 Refills Potassium Chloride (Micro-K Ext Rel) 10 Meq Capcr 10 MEQ PO DAILY, CAP Probiotic Product (Probiotic) 1 Tab Tab 1 TAB PO 3XWK FRIDAY, FRIDAY, FRIDAY Ranitidine (Zantac) 150 Mg Tab 150 MG PO BID for 30 Days, #60 TAB 3 Refills Rosuvastatin Calcium (Crestor) 5 Mg Tab 5 MG PO 3XWK, TAB 5 Refills EVERY FRIDAY/FRIDAY/FRIDAY Sertraline (Zoloft) 100 Mg Tab 100 MG PO HS Sotalol Hcl (Sotalol Hcl) 80 Mg Tab 80 MG PO BID, 3 Refills Tiotropium [place] (Spiriva Respimat) 2.5 Mcg/Act Spr 2 PUFF INH QAM, INHALER Discontinued Medications: Furosemide (Lasix) 20 Mg Tab 20 MG PO DAILY, TAB Admission Information HPI (per Admitting provider): CHIEF COMPLAINT: High blood pressure, shortness of breath. HISTORY OF PRESENT ILLNESS: History obtained from patient and records. 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 History of PVD. Recent confinement last week for hypotension, hemopericardium possibly from Xarelto. Patient transferred to [facility], was admitted there from 02/22/2017 to 02/25/2017. A 2D echo done showed EF 50-59%, small less than 5 mm pericardial effusion, no cardiac tamponade. CT of the chest done in [place] showed moderate sized intermediate density pericardial effusion compatible to hemopericardium. CT surgery consulted. No need for surgical intervention. Medical management recommended. Patient discharged on colchicine and aspirin course. TTE on discharge, 02/25/2017, showed small less than 5 mm pericardial effusion, larger collection of fluid around the right ventricle, unchanged from previous study. No tamponade. Repeat TTE recommended in a week. As per discharge note, if effusion is stable , the patient can be started on Coumadin without bridging. Patient discharged on colchicine 3-month course and 2-week high-dose aspirin taper. Patient was to follow up with PCP in a week and weed inspector in 2-4 weeks. Shortness of breath on exertion even on discharge from [place]. Patient noted 10-15 pound gain from recent confinements. Bilateral arm and leg swelling. Patient feels bloated, loose stools. No chest pain, although patient noted vibration-like sensation in chest from time to time. Patient compliant with aspirin taper. Patient has not been able to comply w/ colchicine Rx secondary to need for insurance authorization. Patient seen at PCP's office yesterday. Outpatient chest x-ray showed small bilateral pleural effusions, appeared slightly increased compared to prior radiographs. Patient prescribed Lasix. Unavailable at at patient's pharmacy yesterday . Patient was to pecan picker prescription the morning. Blood pressure noted to be high at home, SBP 180s. At the Emergency Room, the patient's chest x-ray showed bilateral pleural effusions. The patient given Lasix. Marked relief noted after diuresis. Physical Exam (per Admitting): PHYSICAL EXAMINATION: VITAL SIGNS: Blood pressure was noted to be 150/90, pulse rate 70, RR 21, temperature 37, sats 91 on room air. GENERAL: Noted to be slightly anxious, occ has speaking in phrases/ has to catch her breath during speech. SKIN: Pallor. HEENT: Pale palpebral conjunctivae. Dry mucosa. NECK: Short neck. LUNGS: Decreased breath sounds. HEART: Regular rate and rhythm. ABDOMEN: Some distention. Nontender EXTREMITIES: Bilateral lower extremity edema, no tenderness. NEUROLOGIC: No gross focality. Hospital Course Volume Overload Secondary to aggressive volume resuscitation for hypotension and pericardial effusion week ago Presented with SOB on exertion, B/L Extremity swelling and weight gain CXR:suggestive of b/l parenchymal infiltrates and small b/l pleural effusions S/P IV Lasix Good Urine output Monitor I/Os, daily weight Duonebs PRN Volume status improved Venous Doppler: No DVT ECHO:small circumferential pericardial effusion, no echocardiographic indications of cardiac tamponade Lost 10 kg since admission Volume status much improved No plan for chronic diuretic therapy per cardiology recommendations P.Afib H/O dual-chamber pacemaker, AV node ablation Continue Sotalol No a candidate for Anticoagulation ( Secondary to recent Hemorrhagic pericardial effusion) H/O Hemorrhagic Pericardial effusion Likely secondary to inflammatory process, post procedure in setting of anticoagulation with Xarelto Continue ASA taper 650mg TID day 4 (Plan to taper to 650 mg BID for 4 days, then 650 daily for 3 days) Continue Colchicine (Not taking at home secondary to Insurance Issues) Appreciate Cardiology Input Hypokalemia: Resolved monitor Hypertension: Continue usual meds Chronic anemia: Hb at baseline. Hypothyroidism: Continue Levothyroxine Diarrhea: R/O C.diff: pending Also on Colchicine Bronchiectasis: Stable DVT Px: SCDs , recent hemopericardium. Code Status: Full code Disposition: Follow up with in 1 week as advised Follow up your weed inspector in 2 weeks as advised Seek immediate medical attention if your symptoms reoccur or worsen Check your weight daily PROCEDURES: ECHO; * There is a small circumferential pericardial effusion. * There are no echocardiographic indications of cardiac tamponade. * Compared to the prior study dated 02/21/17, there has been an interval mild improvement in the pericardial effusion. * Small left pleural effusion. * Small right pleural effusion. Total time spent on discharge = 35 minutes This includes examination of the patient, discharge planning, medication reconciliation, and communication with other providers. Discharge Instructions Discharge Instructions Date of Service Mar 02, 2017. Admission Reason for Admission: CHF Discharge Discharge Diagnosis / Problem: Volume Overload Discharge Goals Goal(s): Decrease discomfort, Improve function Activity Recommendations Activity Limitations: resume your previous activity Exercise/Sports Limitations: as tolerated . Instructions / Follow-Up Instructions / Follow-Up Follow up with in 1 week as advised Follow up your weed inspector in 2 weeks as advised Seek immediate medical attention if your symptoms reoccur or worsen Check your weight daily Current Hospital Diet Patient's current hospital diet: AHA Diet (Heart Healthy), Low Lactose Diet Discharge Diet Recommended Diet: AHA Diet (Heart Healthy), Low Lactose Diet Pending Studies Studies pending at discharge: no Laboratory Results Hemoglobin A1c Test 02/22/17 06:56 Range/Units Estimated Average Glucose 114 mg/dl Hemoglobin A1c 5.6 4.5-5.6 % Medical Emergencies . Who to Call and When: Medical Emergencies: If at any time you feel your situation is an emergency, please call 911 immediately. . Non-Emergent Contact Non-Emergency issues call your: Primary Care Provider, Tape Sewer Call Non-Emergent contact if: you have a fever, your pain is not controlled, your pain is worsening, your pain is unusual for you, you have any medication questions Seek immediate medical attention if your symptoms reoccur or worsen . . "Provider Documentation" section prepared by Haroldo Lopez. . VTE Core Measure Inpt VTE Proph given/why not?: SCD's
[2017-03-02 11:49] VITALS: BP 146/73; PULSE 82; TEMP 36.5; O2SAT 95
[2017-03-02 12:19] VITALS: BP 129/81; PULSE 74; TEMP 36.6; O2SAT 93
== END 2017-03-02 14:35 | disposition home or self-care (01) | DRG 641 ==
LOC: EDBD 23:40 → C.EDB 23:48 → C.MED 02-28 02:37 → ENRESERV 02-28 02:43
PROVIDERS: ADMIT Internal Medicine; ATTEND Internal Medicine
DX: E87.79 Other fluid overload (principal); J91.8 Pleural effusion in other conditions classified elsewhere; I31.8 Other specified diseases of pericardium; T50.2X5A Adverse effect of carbonic-anhydrase inhibitors, benzothiadiazides and other diuretics, initial encounter; T45.515A Adverse effect of anticoagulants, initial encounter; E87.6 Hypokalemia; R19.7 Diarrhea, unspecified; D64.9 Anemia, unspecified; I48.0 Paroxysmal atrial fibrillation; E78.5 Hyperlipidemia, unspecified; E03.9 Hypothyroidism, unspecified; K21.9 Gastro-esophageal reflux disease without esophagitis; M81.0 Age-related osteoporosis without current pathological fracture; Z79.899 Other long term (current) drug therapy; Z79.82 Long term (current) use of aspirin; Z95.0 Presence of cardiac pacemaker

== ENCOUNTER 2017-03-23 19:21 | Emergency (ER) | payer OTHER ==
[~2017-03-23] VITALS: Ht 171.5 cm; Wt 82.1 kg
[~2017-03-23 19:21] MED LIST changes: +ASPI325T45 PO; +FLAX10007 PO; +LEVA45AE PO; +POLYSOL4 OP; +POTA10CA28 PO; -PRD20 PO; +SOTA80TA PO; +XPNINS125 NEB
[2017-03-23 19:26] VITALS: TEMP 36.7; Ht 171.5 cm; Wt 82.1 kg
--- NOTE | 2017-03-23 20:22 | DIAGNOSTIC IMAGING REPORT ---
CHEST ONE VIEW PORTABLE CLINICAL HISTORY: Evaluate Fever/Sepsis sepsis COMPARISON STUDY: 02/28/2017 FINDINGS: Lungs are considered clear. Minimal platelike atelectasis left base. Prominent bipolar cardiac pacemaker. Diaphragms smooth. IMPRESSION: Pulmonary atelectasis left base. Study is otherwise negative. The above report was generated using voice recognition software. It may contain grammatical, syntax or spelling errors. Electronically signed by: Garry Torres M.D. 03/23/2017 8:21 PM Dictated Date/Time: 03/23/2017 8:20 PM
[2017-03-23 20:26] LABS: BASO % 0.3 %; BASO ABS # 0.02 K/uL (0-0.2); COMPLETE YES; EOS % 1.3 %; HEMATOCRIT 37.5 % (37-47); IG% 0.2 %; LYMPH % 22.6 %; LYMPH ABS # 1.43 K/uL (1.2-3.4); MEAN CELL VOLUME 90.1 fL (80-100); MEAN CORPUSCULAR HEMOGLOBIN 30.8 pg (25-34); MEAN CORPUSCULAR HGB CONC 34.1 g/dl (32-36); MEAN PLATELET VOLUME 9.9 fL (7.4-10.4); MONO % 10.1 %; NEUT % 65.5 %; PLATELET COUNT 224 K/uL (130-400); RED BLOOD COUNT 4.16 M/uL (4.2-5.4); WHITE BLOOD COUNT 6.33 K/uL (4.8-10.8)
[2017-03-23] MEDS ORDERED: NITR-5 PO (20:30)
[2017-03-23] MEDS ORDERED: WARF2.5T8 PO (20:30)
[2017-03-23 20:33] LABS: ALT/SGPT 21 U/L (12-78); BLOOD UREA NITROGEN 9 mg/dl (7-18); BUN/CREATININE RATIO 12.5 (10-20); CALCIUM 9.5 mg/dl (8.5-10.1); CARBON DIOXIDE 25 mmol/L (21-32); CHLORIDE 107 mmol/L (98-107); CREATININE 0.71 mg/dl (0.60-1.20); GLUCOSE 101 mg/dl (70-99); SODIUM 139 mmol/L (136-145)
[2017-03-23 20:37] LABS: INR 2.1 (0.9-1.1); PARTIAL THROMBOPLASTIN RATIO 1.1; PROTHROMBIN TIME (PATIENT) 22.7 SECONDS (9.0-12.0)
[2017-03-23 20:38] LABS: ALKALINE PHOSPHATASE 73 U/L (45-117); AST/SGOT 14 U/L (15-37); CKMB/CK RATIO 2.2 (0-3.0)
--- NOTE | 2017-03-23 21:23 | EMERGENCY ROOM VISIT NOTE ---
History Report prepared by Stacyibronaldo: Emliy Stephens Under the Supervision of: Dr. Twan Maurice D.O. First contact with patient: 19:58 Chief Complaint: CHEST PAIN Stated Complaint: CHEST PAIN, FATIGUE History of Present Illness The patient is a 76 year old female who presents to the Emergency Room with complaints of persistent chest pain for the past 3 days. She rates her pain as a 5/10 in severity and states it is worse with inspiration. She has also experienced intermittent shortness of breath, fatigue and the chills. She saw the [facility] weekend clinic yesterday, and had an X-Ray and EKG. The patient admits she was hospitalized twice in the past month for a pericardial effusion. She saw her Account Services Representative, Dr. Gonzalez with [facility], last week and was told the pericardial effusion has been diminishing. Her daughter reports she was started on Coumadin 2 days ago, and was also placed on daily Aspirin. 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 A total of 10 systems reviewed and were otherwise negative. Past Medical & Surgical Medical Problems: (1) Bronchiectasis (2) Chest pain (3) CHF (congestive heart failure) (4) GERD (gastroesophageal reflux disease) (5) HLD (hyperlipidemia) (6) Hypotension (7) Hypothyroidism (8) Osteoarthritis (9) Osteoporosis (10) Paroxysmal a-fib (11) Rapid atrial fibrillation Surgical Problems: (1) H/O arthroscopic knee surgery (2) H/O partial thyroidectomy (3) History of appendectomy (4) History of sinus surgery (5) History of tonsillectomy (6) History of tubal ligation (7) Hx of cholecystectomy Family History Patient reports no known family medical history. Social History Smoking Status: Never Smoker Alcohol Use: occasionally Drug Use: none Marital Status: Housing Status: lives with family Occupation Status: retired Current/Historical Medications Scheduled Biotin (Biotin), 5 MG PO 3XWK Calcium Citrate-Vitamin D (Calcium Citrate + D), 1 TAB PO DAILY Colchicine (Colcrys), 0.6 MG PO BID Flaxseed (Linseed) (Flax Seed Oil), 1,000 MG PO DAILY Fluticasone Propionate (Nasal) (Flonase Allergy Relief), 1 SPRAY BERNICE QPM Levothyroxine Sodium (Levothyroxine Sodium), 100 MCG PO QAM Nitrofurantoin Monohyd Macrocr (Macrobid), 100 MG PO BID Potassium Chloride (Micro-K Ext Rel), 10 MEQ PO DAILY Probiotic Product (Probiotic), 1 TAB PO 3XWK Ranitidine (Zantac), 150 MG PO BID Rosuvastatin Calcium (Crestor), 5 MG PO 3XWK Sertraline (Zoloft), 100 MG PO HS Sotalol Hcl (Sotalol Hcl), 80 MG PO BID Tiotropium [place] (Spiriva Respimat), 2 PUFF INH QAM Warfarin Sod (Jantoven), 2.5 MG PO DAILY Scheduled PRN Levalbuterol (Levalbuterol HCl), 3 ML NEB Q8 PRN for Wheezing Levalbuterol Tartrate (Levalbuterol Tartrate Hfa), 1 PUFF PO Q6 PRN for Wheezing Allergies Coded Allergies: Iodinated Diagnostic Agents (Verified Allergy, Severe, ANAPHYLAXIS, ) Shellfish (Verified Allergy, Severe, "Seafood" -- ANAPHYLAXIS, 02/21/17) Erythromycin (Verified Allergy, Intermediate, RASH, 02/21/17) Penicillins (Verified Allergy, Intermediate, RASH, 02/21/17) FROM CHILDHOOD Simvastatin (Verified Allergy, Intermediate, RASH, 02/21/17) Celecoxib (Verified Allergy, Mild, RASH, 02/21/17) Nystatin (Verified Allergy, Mild, RASH, 02/21/17) Rivaroxaban (Verified Adverse Reaction, Severe, 0, 02/28/17) possivble hemorrhagic pericardial effusion Moxifloxacin (Verified Adverse Reaction, Intermediate, HALUCINATIONS, 02/21) Fish (Verified Adverse Reaction, Mild, GI SYMPTOMS, 02/21/17) Physical Exam Vital Signs Date Time Temp Pulse Resp B/P (MAP) Pulse Ox O2 Delivery O2 Flow Rate FiO2 03/23/17 20:26 96 Room Air 03/23/17 20:21 72 23 03/23/17 19:51 70 22 03/23/17 19:38 80 03/23/17 19:26 36.7 87 20 135/92 95 Room Air Physical Exam CONSTITUTIONAL/VITAL SIGNS: Reviewed / noted above. GENERAL: Non-toxic in appearance. INTEGUMENTARY: Warm, dry, and [place]. HEAD: Normocephalic. EYES: without scleral icterus or trauma. ENT/OROPHARYNX: clear and moist. LYMPHADENOPATHY/NECK: Is supple without lymphadenopathy or meningismus. RESPIRATORY: Lungs clear and equal. CARDIOVASCULAR: Regular rate and rhythm. GI/ABDOMEN: Soft and nontender. No organomegaly or pulsatile mass. No rebound or guarding. Normal bowel sounds. EXTREMITIES: Warm and well perfused. BACK: No CVA tenderness. NEUROLOGICAL: Intact without focal deficits. PSYCHIATRIC: normal affect. MUSCULOSKELETAL: Normally developed with good muscle tone. Medical Decision & Procedures ER Provider Diagnostic Interpretation: Radiology results as stated below per my review and radiologist interpretation: CHEST ONE VIEW PORTABLE CLINICAL HISTORY: Evaluate Fever/Sepsis sepsis COMPARISON STUDY: 02/28/2017 FINDINGS: Lungs are considered clear. Minimal platelike atelectasis left base. Prominent bipolar cardiac pacemaker. Diaphragms smooth. IMPRESSION: Pulmonary atelectasis left base. Study is otherwise negative. The above report was generated using voice recognition software. It may contain grammatical, syntax or spelling errors. Electronically signed by: Garry Torres M.D. 03/23/2017 8:21 PM Laboratory Results 03/23/17 19:35 Red Blood Count 4.16, Mean Corpuscular Volume 90.1, Mean Corpuscular Hemoglobin 30.8, Mean Corpuscular Hemoglobin Concent 34.1, Mean Platelet Volume 9.9, Neutrophils (%) (Auto) 65.5, Lymphocytes (%) (Auto) 22.6, Monocytes (%) (Auto) 10.1, Eosinophils (%) (Auto) 1.3, Basophils (%) (Auto) 0.3, Neutrophils # (Auto ) 4.15, Lymphocytes # (Auto) 1.43, Monocytes # (Auto) 0.64, Eosinophils # (Auto ) 0.08, Basophils # (Auto) 0.02 03/23/17 19:35 Test 03/23/17 19:35 White Blood Count 6.33 K/uL (4.8-10.8) Red Blood Count 4.16 M/uL (4.2-5.4) Hemoglobin 12.8 g/dL (12.0-16.0) Hematocrit 37.5 % (37-47) Mean Corpuscular Volume 90.1 fL (80-100) Mean Corpuscular Hemoglobin 30.8 pg (25-34) Mean Corpuscular Hemoglobin Concent 34.1 g/dl (32-36) Platelet Count 224 K/uL (130-400) Mean Platelet Volume 9.9 fL (7.4-10.4) Neutrophils (%) (Auto) 65.5 % Lymphocytes (%) (Auto) 22.6 % Monocytes (%) (Auto) 10.1 % Eosinophils (%) (Auto) 1.3 % Basophils (%) (Auto) 0.3 % Neutrophils # (Auto) 4.15 K/uL (1.4-6.5) Lymphocytes # (Auto) 1.43 K/uL (1.2-3.4) Monocytes # (Auto) 0.64 K/uL (0.11-0.59) Eosinophils # (Auto) 0.08 K/uL (0-0.5) Basophils # (Auto) 0.02 K/uL (0-0.2) RDW Standard Deviation 45.0 fL (36.4-46.3) RDW Coefficient of Variation 13.7 % (11.5-14.5) Immature Granulocyte % (Auto) 0.2 % Immature Granulocyte # (Auto) 0.01 K/uL (0.00-0.02) Prothrombin Time 22.7 SECONDS (9.0-12.0) Prothromb Time International Ratio 2.1 (0.9-1.1) Activated Partial Thromboplast Time 29.4 SECONDS (21.0-31.0) Partial Thromboplastin Ratio 1.1 Anion Gap 7.0 mmol/L (3-11) Est Creatinine Clear Calc Drug Dose 73.9 ml/min Estimated GFR () 95.2 Estimated GFR (Non- 82.2 BUN/Creatinine Ratio 12.5 (10-20) Calcium Level 9.5 mg/dl (8.5-10.1) Total Bilirubin 0.3 mg/dl (0.2-1) Direct Bilirubin 0.1 mg/dl (0-0.2) Aspartate Amino Transf (AST/SGOT) 14 U/L (15-37) Alanine Aminotransferase (ALT/SGPT) 21 U/L (12-78) Alkaline Phosphatase 73 U/L (45-117) Total Creatine Kinase 50 U/L (26-192) Creatine Kinase MB 1.1 ng/ml (0.5-3.6) Creatine Kinase MB Ratio 2.2 (0-3.0) Troponin I < 0.015 ng/ml (0-0.045) Total Protein 7.1 gm/dl (6.4-8.2) Albumin 3.6 gm/dl (3.4-5.0) Lipase 133 U/L (73-393) Laboratory results as stated above per my review. ED Course 1957: Previous medical records were reviewed. The patient was evaluated in room C6. A complete history and physical examination was performed. 2129: I reevaluated the patient. She is feeling better and resting comfortably. I discussed her results and discharge instructions and she verbalized complete understanding and agreement. Medical Decision the differential was considered includes acute myocardial infarction, acute coronary syndrome, myocarditis, pericarditis, pericardial effusions /tamponad, esophageal perforation, thoracic aortic dissection, pulmonary embolism, pneumonia, pneumothorax, pancreatitis, shingles, acute cholecystitis, perforated abdominal viscus. This is a 76-year-old female who presents to the ED with a chief complaint of chest pain. The patient states that her pain is primarily when she inhales. The patient has a history of pericardial effusion but states that her pain today is not similar to that pain. She started Coumadin on Friday. She has no additional complaints. No fevers. No swelling in her legs. Her vital signs are normal. Physical exam is completely normal. She is in no distress. CBC is normal as his complete metabolic panel. Troponin is negative. Chest x-ray did not show acute disease. INR is 2.1. The patient was told results the test. Clinically the patient does not appear to have any findings to suggest an acute cardiopulmonary event. She is felt to be stable for discharge and outpatient follow-up. Medication Reconcilliation Current Medication List: was personally reviewed by me Blood Pressure Screening Patient's blood pressure: Normal blood pressure Blood pressure disposition: Did not require urgent referral Impression Primary Impression: Left sided chest pain Scribe Attestation The scribe's documentation has been prepared under my direction and personally reviewed by me in its entirety. I confirm that the note above accurately reflects all work, treatment, procedures, and medical decision making performed by me. Departure Information Dispostion Home / Self-Care Referrals Trang Allan D.O. (PCP) Patient Instructions My [facility] Additional Instructions Follow-up with your doctor for further care and evaluation in 1-2 days. Return to the emergency department for worsening or new symptoms or any concerns. You have been examined and treated today on an emergency basis only. This is not a substitute for, or an effort to provide, complete comprehensive medical care. It is impossible to recognize and treat all injuries or illnesses in a single emergency department visit. It is therefore important that you follow up closely with your doctor. Call as soon as possible for an appointment.
[2017-03-23 21:37] VITALS: BP 137/85; PULSE 78; O2SAT 98
[2017-03-28] MEDS ORDERED: ASPEC81 PO (11:23)
[2017-03-28] MEDS ORDERED: PRED10TA PO (11:23)
[2017-03-28] MEDS ORDERED: PRED-301 PO (11:23)
[2017-03-28] MEDS ORDERED: LPR25 PO (11:23)
[2017-03-28] MEDS ORDERED: CEFD1CAP14 PO (11:23)
== END 2017-03-23 21:39 | disposition home or self-care (01) ==
LOC: C.EDB 19:25 → C.EDC 21:39
DX: R07.9 Chest pain, unspecified (principal); Z79.01 Long term (current) use of anticoagulants; Z79.82 Long term (current) use of aspirin; I50.9 Heart failure, unspecified; K21.9 Gastro-esophageal reflux disease without esophagitis; E78.5 Hyperlipidemia, unspecified; M19.90 Unspecified osteoarthritis, unspecified site; M81.0 Age-related osteoporosis without current pathological fracture; I48.0 Paroxysmal atrial fibrillation; E89.0 Postprocedural hypothyroidism; Z90.49 Acquired absence of other specified parts of digestive tract; Z98.51 Tubal ligation status; Z79.899 Other long term (current) drug therapy

== ENCOUNTER 2017-03-25 15:29 | Inpatient (IN) | payer OTHER ==
[~2017-03-25] VITALS: Ht 172.7 cm; Wt 84.1 kg
[~2017-03-25 15:29] MED LIST changes: -ASPI325T45 PO; +NITR-5 PO; -POLYSOL4 OP; +WARF2.5T8 PO
[2017-03-25] MEDS ORDERED: SODIUM CHLORIDE 0.9% 500ML 500 ML IV STA (15:40)
[2017-03-25] MEDS ORDERED: PHYTONADIONE INJ 10 MG in SODIUM CHLORIDE 0.9% 50ML 50 ML IV ONE (15:45)
[2017-03-25] MEDS ORDERED: COLC0.6T54 PO (16:02)
[2017-03-25 16:17] LABS: BASO % 0.9 %; BASO ABS # 0.05 K/uL (0-0.2); COMPLETE YES; EOS % 1.8 %; HEMATOCRIT 38.1 % (37-47); IG% 0.4 %; LYMPH % 30.9 %; LYMPH ABS # 1.76 K/uL (1.2-3.4); MEAN CELL VOLUME 89.6 fL (80-100); MEAN CORPUSCULAR HEMOGLOBIN 29.9 pg (25-34); MEAN CORPUSCULAR HGB CONC 33.3 g/dl (32-36); MEAN PLATELET VOLUME 10.2 fL (7.4-10.4); MONO % 12.6 %; NEUT % 53.4 %; PLATELET COUNT 220 K/uL (130-400); RED BLOOD COUNT 4.25 M/uL (4.2-5.4)
[2017-03-25 16:26] LABS: BUN/CREATININE RATIO 18.3 (10-20); CALCIUM 9.9 mg/dl (8.5-10.1); CARBON DIOXIDE 24 mmol/L (21-32); CHLORIDE 108 mmol/L (98-107); CREATININE 0.78 mg/dl (0.60-1.20); GLUCOSE 88 mg/dl (70-99); POTASSIUM 3.9 mmol/L (3.5-5.1); SODIUM 139 mmol/L (136-145)
[2017-03-25 16:32] LABS: PARTIAL THROMBOPLASTIN RATIO 1.4; PROTHROMBIN TIME (PATIENT) 52.1 SECONDS (9.0-12.0)
[2017-03-25 16:33] LABS: INR 4.6 (0.9-1.1)
--- NOTE | 2017-03-25 16:51 | History and Physical ---
History & Physical Date & Time of Service: Mar 25, 2017 at 16:51 . Chief Complaint: chest pain . Primary Care Physician: Trang Allan D.O. . History of Present Illness Source: patient, clinic records, hospital records 76 YO female followed by Dr. Allan for Family Medicine. History of atrial fibrillation, pericarditis, and other problems noted below. Seen by [place] [facility] [place] November of this [place]. AV ablation + pacemaker implantation performed on 12/02/16. Readmitted to [facility] 12/03/16 with chest pain. Troponins slightly elevated. CPK's normal. Echo showed normal LV wall motion and function, no pericardial effusion. Presented to [facility] 02/21/17 with chest pain and hypotension. CT of chest demonstrated a pericardial effusion. Echo showed small pericardial effusion, no evidence of tamponade. [place] to have possible hemopericardium. Rivaroxaban was discontinued. Received prednisone and colchicine. Transferred to [facility] 02/22/17 for further evaluation. Did not require surgical intervention. Discharged from [facility] to home on 02/25/17. Readmitted to [facility] 02/27/17 with increasing SOB. Chest x-ray demonstrated bilateral pleural effusions. Exam consistent with fluid overload. Echo on 02/28/17 showed normal LV systolic function, small pericardial effusion without tamponade. Treated with diuretics with improvement. Discharged to home 03/02/17. She was seen in Cardiology Clinic on 03/18/17 and was doing well. Anticoagulation with warfarin 2.5 mg daily was started on 03/21/17 Presented to ED 03/24/17 with pleuritic chest pain. EKG and cardiac markers were OK. Discharged to home. Seen in Cardiology Clinic this morning. Exam revealed a pericardial friction rub. Echo demonstrated moderate pericardial effusion without tamponade. Referred to hospital for further evaluation and management. Persistent mid upper chest pain. Worse with inspiration and worse when lying on her side. No radiation. No SOB. No fever. Possible chills / sweats. No cough. No lower extremity edema. Some nausea, no emesis. . Past Medical/Surgical History Chronic and Resolved Medical Problems: (1) Bronchiectasis Status: Chronic (2) GERD (gastroesophageal reflux disease) Status: Chronic (3) History of pancreatitis Status: Chronic (4) History of pericarditis Permanent Comment: November 2016. Suspected hemopericardium secondary to rivaroxaban. Status: Chronic (5) HLD (hyperlipidemia) Status: Chronic (6) Hypothyroidism Status: Chronic (7) Osteoarthritis Status: Chronic (8) Osteoporosis Status: Chronic (9) Paroxysmal atrial fibrillation Status: Chronic Surgical Problems: (1) H/O arthroscopic knee surgery Status: Chronic (2) H/O partial thyroidectomy Status: Chronic (3) History of appendectomy Status: Chronic (4) History of sinus surgery Status: Chronic (5) History of tonsillectomy Status: Chronic (6) History of tubal ligation Status: Chronic (7) Hx of cholecystectomy Status: Chronic (8) Status post atrioventricular brayan ablation Status: Chronic (9) Status post cardiac pacemaker procedure Status: Chronic . Family History Patient reports no known family medical history. 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) Immunizations History of Influenza Vaccine: Yes History of Tetanus Vaccine?: Yes Tetanus Immunization Date: Sep 16, 2008 History of Pneumococcal: Yes Pneumococcal Date: Jan 29, 2012 Allergies Coded Allergies: Iodinated Diagnostic Agents (Verified Allergy, Severe, ANAPHYLAXIS, ) Shellfish (Verified Allergy, Severe, "Seafood" -- ANAPHYLAXIS, 02/21/17) Erythromycin (Verified Allergy, Intermediate, RASH, 03/25/17) Penicillins (Verified Allergy, Intermediate, RASH, 02/21/17) FROM CHILDHOOD Simvastatin (Verified Allergy, Intermediate, RASH, 03/25/17) Celecoxib (Verified Allergy, Mild, RASH, 03/25/17) Nystatin (Verified Allergy, Mild, RASH, 03/25/17) Rivaroxaban (Verified Adverse Reaction, Severe, 0, 03/25/17) possivble hemorrhagic pericardial effusion Moxifloxacin (Verified Adverse Reaction, Intermediate, HALUCINATIONS, 03/25) Fish (Verified Adverse Reaction, Mild, GI SYMPTOMS, 02/21/17) Home Medications Scheduled Biotin (Biotin), 5 MG PO 3XWK Calcium Citrate-Vitamin D (Calcium Citrate + D), 1 TAB PO DAILY Colchicine (Colchicine), 0.6 MG PO QPM Flaxseed (Linseed) (Flax Seed Oil), 1,000 MG PO 3XWK Fluticasone Propionate (Nasal) (Flonase Allergy Relief), 1 SPRAY BERNICE QPM Levothyroxine Sodium (Levothyroxine Sodium), 100 MCG PO QAM Probiotic Product (Probiotic), 1 TAB PO DAILY Ranitidine (Zantac), 150 MG PO BID Rosuvastatin Calcium (Crestor), 5 MG PO 3XWK Sertraline (Zoloft), 100 MG PO HS Sotalol Hcl (Sotalol Hcl), 80 MG PO BID Tiotropium [place] (Spiriva Respimat), 2 PUFF INH QAM Warfarin Sod (Coumadin), 2.5 MG PO DAILY Scheduled PRN Levalbuterol (Levalbuterol HCl), 3 ML NEB Q8 PRN for Wheezing Review of Systems Constitutional: + chills, + sweats, + problem reported (weight has been fluctuating), No fever Eyes: No worsening of vision, No diplopia ENT: No hearing loss, No nasal symptoms, No sore throat Respiratory: No cough, No shortness of breath, No hemoptysis Cardiovascular: + chest pain, No edema, No palpitations Abdomen: + nausea, + diarrhea, No pain, No vomiting, No GI bleeding Musculoskeletal: + joint pain Genitourinary - Female: + problem reported (recent UTI, improved after treatment), No dysuria, No hematuria Neurologic: + problem reported (occasional headache) Hematologic / Lymphatic: + abnormal bleeding/bruising Integumentary: No rash, No new/changing skin lesions Physical Exam Vital Signs Date Time Temp Pulse Resp B/P (MAP) Pulse Ox O2 Delivery O2 Flow Rate FiO2 03/25/17 16:24 76 16 118/73 96 Room Air 03/25/17 16:06 70 03/25/17 15:31 36.5 78 18 109/73 96 General Appearance: WD/WN, no apparent distress Head: normocephalic, atraumatic Eyes: normal inspection, PERRL, EOMI, sclerae normal ENT: normal ENT inspection, hearing grossly normal, pharynx normal Neck: supple, no adenopathy, thyroid normal, trachea midline Respiratory/Chest: lungs clear, no respiratory distress, no accessory muscle use Cardiovascular: regular rate, rhythm, no edema, no gallop, + JVD, + friction rub Abdomen/GI: normal bowel sounds, non tender, soft, no organomegaly Extremities/Musculoskelatal: normal inspection, no calf tenderness 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 (PERRL, EOMI, no facial palsy, no dysarthria), no motor/sensory deficits (upper and lower motor strength intact), alert, normal mood/affect, normal reflexes (patellar DTR's 2/2), oriented x 3 Skin: normal color, warm/dry, no rash Lymphatic: no adenopathy (cervical) Diagnostics Laboratory Results Results Past 24 Hours Test 03/25/17 15:50 Range/Units White Blood Count 5.70 4.8-10.8 K/uL Red Blood Count 4.25 4.2-5.4 M/uL Hemoglobin 12.7 12.0-16.0 g/dL Hematocrit 38.1 37-47 % Mean Corpuscular Volume 89.6 80-100 fL Mean Corpuscular Hemoglobin 29.9 25-34 pg Mean Corpuscular Hemoglobin Concent 33.3 32-36 g/dl Platelet Count 220 130-400 K/uL Mean Platelet Volume 10.2 7.4-10.4 fL Neutrophils (%) (Auto) 53.4 % Lymphocytes (%) (Auto) 30.9 % Monocytes (%) (Auto) 12.6 % Eosinophils (%) (Auto) 1.8 % Basophils (%) (Auto) 0.9 % Neutrophils # (Auto) 3.05 1.4-6.5 K/uL Lymphocytes # (Auto) 1.76 1.2-3.4 K/uL Monocytes # (Auto) 0.72 0.11-0.59 K/uL Eosinophils # (Auto) 0.10 0-0.5 K/uL Basophils # (Auto) 0.05 0-0.2 K/uL RDW Standard Deviation 45.4 36.4-46.3 fL RDW Coefficient of Variation 13.7 11.5-14.5 % Immature Granulocyte % (Auto) 0.4 % Immature Granulocyte # (Auto) 0.02 0.00-0.02 K/uL Prothrombin Time 52.1 9.0-12.0 SECONDS Prothromb Time International Ratio 4.6 0.9-1.1 Activated Partial Thromboplast Time 35.5 21.0-31.0 SECONDS Partial Thromboplastin Ratio 1.4 Sodium Level 139 136-145 mmol/L Potassium Level 3.9 3.5-5.1 mmol/L Chloride Level 108 98-107 mmol/L Carbon Dioxide Level 24 21-32 mmol/L Anion Gap 7.0 3-11 mmol/L Creatinine 0.78 0.60-1.20 mg/dl Est Creatinine Clear Calc Drug Dose 67.2 ml/min Estimated GFR () 85.0 Estimated GFR (Non- 73.3 BUN/Creatinine Ratio 18.3 10-20 Random Glucose 88 70-99 mg/dl Calcium Level 9.9 8.5-10.1 mg/dl Troponin I < 0.015 0-0.045 ng/ml Diagnostic Radiology CHEST ONE VIEW PORTABLE FINDINGS: No pneumothorax. Bibasilar linear densities, left greater the right are again noted. This is similar to the prior study and may represent atelectasis or scarring. The upper lung zones are clear. Left-sided dual-chamber pacemaker. The cardiac silhouette remains borderline enlarged. Cholecystectomy. No definite pleural effusions. IMPRESSION: 1. Bibasilar linear densities persist and favor atelectasis or scarring. A pneumonia could also have a similar appearance. 2. Stable borderline enlargement of the cardiac silhouette. Electronically signed by: Chin Chu M.D. 03/25/2017 5:25 PM Dictated Date/Time: 03/25/2017 5:23 PM . EKG EKG performed at 15:45 reviewed and demonstrated ventricular paced rhythm at 80 / minute, repolarization abnormalities. . Impression Assessment and Plan PERICARDITIS / PERICARDIAL EFFUSION Recurrent pericarditis with pleural effusion. Previously attributed to spontaneous hemopericardium while taking rivaroxaban. Recurrent CP after starting anticoagulation with warfarin. Hemodynamically stable. Echo in clinic today showed moderate pericardial effusion without tamponade. Cardiology consulted. Reversal of warfarin, continuation of colchicine, and NSAID recommended. Patient had to reduce her dose of colchicine from BID to daily due to GI symptoms. Start naproxen 250 mg BID with food. Further management per Cardiology. ELEVATED INR INR 4.6 in ED. Received vitamin K 10 mg IV. Check repeat INR tomorrow. PAROXYSMAL ATRIAL FIBRILLATION S/P AV ablation + pacemaker implantation. Continue sotalol. Hold / reverse warfarin. HYPOTHYROIDISM Continue levothyroxine. DYSLIPIDEMIA Continue rosuvastatin. LOOSE STOOLS Probably due to colchicine. Recent course of antibiotics for UTI. Check stool for C diff. VTE PROPHYLAXIS Stopping warfarin due to pericardial effusion. SCD's. Ambulate. RESUSCITATION STATUS Discussed with patient. She had a durable POA and she believes a living will as well. She would like resuscitation attempted in the event of a cardiopulmonary arrest if there is a reasonable chance of a meaningful recovery, but does not want prolonged extraordinary measures if prognosis is very poor. Therefore, code status = "Level 1" (full resuscitation). DISPOSITION To be determined. Family Medicine follow-up with Dr. Allan. Cariology follow-up with Dr. Gonzalez. . VTE Prophylaxis VTE Risk Assessment Done? Y/N: Yes Risk Level: Moderate Given or contraindicated: SCD's
[2017-03-25] MEDS ORDERED: KETOROLAC TROMETHAMINE 30 MG/ML VIAL IV STA (16:54)
[2017-03-25] MEDS ORDERED: ACETAMINOPHEN 325 MG TAB PO PRN (17:00)
[2017-03-25 17:10] LABS: BLOOD UREA NITROGEN 14 mg/dl (7-18)
--- NOTE | 2017-03-25 17:26 | DIAGNOSTIC IMAGING REPORT ---
CHEST ONE VIEW PORTABLE HISTORY: Atypical Chest Pain COMPARISON: Chest 03/23/2017. FINDINGS: No pneumothorax. Bibasilar linear densities, left greater the right are again noted. This is similar to the prior study and may represent atelectasis or scarring. The upper lung zones are clear. Left-sided dual-chamber pacemaker. The cardiac silhouette remains borderline enlarged. Cholecystectomy. No definite pleural effusions. IMPRESSION: 1. Bibasilar linear densities persist and favor atelectasis or scarring. A pneumonia could also have a similar appearance. 2. Stable borderline enlargement of the cardiac silhouette. Electronically signed by: Chin Chu M.D. 03/25/2017 5:25 PM Dictated Date/Time: 03/25/2017 5:23 PM
[2017-03-25 18:19] VITALS: BP 123/84; PULSE 81; TEMP 36.7; O2SAT 97
[2017-03-25 18:44] VITALS: BP 123/84; PULSE 81; TEMP 36.7; O2SAT 98; Ht 172.7 cm; Wt 84.1 kg
[2017-03-25] MEDS ORDERED: CMD/25 PO (19:47)
[2017-03-25] MEDS ORDERED: LEVALBUTEROL 1.25MG/3ML NEB INH PRN (20:00)
--- NOTE | 2017-03-25 20:02 | EMERGENCY ROOM VISIT NOTE ---
History Report prepared by Cecily: Raina Helton Under the Supervision of: Dr. Jerad Amezquita D.O. First contact with patient: 15:31 Chief Complaint: RESPIRATORY PROBLEMS Stated Complaint: PERICARDIAL FLUID BUILDUP History of Present Illness The patient is a 76 year old female who presents to the Emergency Room with complaints of persistent chest pain starting 4 days ago. The patient had a pericardial effusion 1 month ago. Her blood thinner was stopped at that time. She was then on colchicine and aspirin and she was feeling better. She started Coumadin again 4 days ago. She started having chest pains again at that time. She went to the weekend clinic and was told to present to the ED if her symptoms do not improve. She was seen at her PCP today and found to have a pericardial effusion. Dr. Gonzalez would like her INR reversed and admitted for moderate pericardial effusion. She has no tamponade or circumferential effusion. Her INR was 3.8. She is SOB, but less so than with her previous effusion. She is having chest pain with breathing. She noticed last night that the pain came back when she rolled over onto her left side. She denies any nausea, vomiting, cough, or abdominal pain. She has a history of atrial fibrillation. She has a pacemaker. Two days ago, she finished a course of Macrobid for UTI. Source of History: patient Onset: 4 days ago Position: chest Quality: other (pain) Timing: other (persistent) Modifying Factors (Worsening): breathing Associated Symptoms: + SOB, No cough, No nausea, No vomiting, No abdominal pain Review of Systems See HPI for pertinent positives & negatives. A total of 10 systems reviewed and were otherwise negative. Past Medical & Surgical Medical Problems: (1) Bronchiectasis (2) Chest pain (3) CHF (congestive heart failure) (4) GERD (gastroesophageal reflux disease) (5) HLD (hyperlipidemia) (6) Hypotension (7) Hypothyroidism (8) Osteoarthritis (9) Osteoporosis (10) Paroxysmal a-fib (11) Pericardial effusion (12) Rapid atrial fibrillation Surgical Problems: (1) H/O arthroscopic knee surgery (2) H/O partial thyroidectomy (3) History of appendectomy (4) History of sinus surgery (5) History of tonsillectomy (6) History of tubal ligation (7) Hx of cholecystectomy Family History Patient reports no known family medical history. Social History Smoking Status: Never Smoker Alcohol Use: occasionally Drug Use: none Marital Status: Housing Status: lives with family Occupation Status: retired Current/Historical Medications Scheduled Biotin (Biotin), 5 MG PO 3XWK Calcium Citrate-Vitamin D (Calcium Citrate + D), 1 TAB PO DAILY Colchicine (Colchicine), 0.6 MG PO QPM Flaxseed (Linseed) (Flax Seed Oil), 1,000 MG PO 3XWK Fluticasone Propionate (Nasal) (Flonase Allergy Relief), 1 SPRAY [place]ERN[place] QPM Levothyroxine Sodium (Levothyroxine Sodium), 100 MCG PO QAM Probiotic Product (Probiotic), 1 TAB PO DAILY Ranitidine (Zantac), 150 MG PO BID Rosuvastatin Calcium (Crestor), 5 MG PO 3XWK Sertraline (Zoloft), 100 MG PO HS Sotalol Hcl (Sotalol Hcl), 80 MG PO BID Tiotropium [place] (Spiriva Respimat), 2 PUFF INH QAM Warfarin Sod (Coumadin), 2.5 MG PO DAILY Scheduled PRN Levalbuterol (Levalbuterol HCl), 3 ML NEB Q8 PRN for Wheezing Allergies Coded Allergies: Iodinated Diagnostic Agents (Verified Allergy, Severe, ANAPHYLAXIS, ) Shellfish (Verified Allergy, Severe, "Seafood" -- ANAPHYLAXIS, 02/21/17) Erythromycin (Verified Allergy, Intermediate, RASH, 03/25/17) Penicillins (Verified Allergy, Intermediate, RASH, 02/21/17) FROM CHILDHOOD Simvastatin (Verified Allergy, Intermediate, RASH, 03/25/17) Celecoxib (Verified Allergy, Mild, RASH, 03/25/17) Nystatin (Verified Allergy, Mild, RASH, 03/25/17) Rivaroxaban (Verified Adverse Reaction, Severe, 0, 03/25/17) possivble hemorrhagic pericardial effusion Moxifloxacin (Verified Adverse Reaction, Intermediate, HALUCINATIONS, 03/25) Fish (Verified Adverse Reaction, Mild, GI SYMPTOMS, 02/21/17) Physical Exam Vital Signs Date Time Temp Pulse Resp B/P (MAP) Pulse Ox O2 Delivery O2 Flow Rate FiO2 03/25/17 16:51 70 16 143/106 98 Room Air 03/25/17 16:24 76 16 118/73 96 Room Air 03/25/17 16:06 70 03/25/17 15:31 36.5 78 18 109/73 96 Physical Exam GENERAL: sitting up in bed, alert, well appearing, well nourished, no distress, non-toxic EYE EXAM: normal conjunctiva OROPHARYNX: no exudate, no erythema, lips, buccal mucosa, and tongue normal and mucous membranes are moist NECK: supple, no nuchal rigidity, no adenopathy, non-tender LUNGS: Clear to auscultation. Normal chest wall mechanics HEART: no murmurs, S1 normal and S2 normal ABDOMEN: abdomen soft, non-tender, normo-active bowel sounds, no masses, no rebound or guarding. BACK: Back is symmetrical on inspection and there is no deformity, no midline tenderness, no CVA tenderness. SKIN: no rashes and no bruising UPPER EXTREMITIES: upper extremities are grossly normal. LOWER EXTREMITIES: No pitting edema. NEURO EXAM: Normal sensorium, cranial nerves II-XII grossly intact, normal speech, no gross weakness of arms, no gross weakness of legs. Medical Decision & Procedures ER Provider Diagnostic Interpretation: Radiology results as stated below per my review and the radiologist's interpretation: CHEST ONE VIEW PORTABLE HISTORY: Atypical Chest Pain COMPARISON: Chest 03/23/2017. FINDINGS: No pneumothorax. Bibasilar linear densities, left greater the right are again noted. This is similar to the prior study and may represent atelectasis or scarring. The upper lung zones are clear. Left-sided dual-chamber pacemaker. The cardiac silhouette remains borderline enlarged. Cholecystectomy. No definite pleural effusions. IMPRESSION: 1. Bibasilar linear densities persist and favor atelectasis or scarring. A pneumonia could also have a similar appearance. 2. Stable borderline enlargement of the cardiac silhouette. Electronically signed by: Chin Chu M.D. 03/25/2017 5:25 PM Dictated Date/Time: 03/25/2017 5:23 PM Laboratory Results 03/25/17 15:50 Red Blood Count 4.25, Mean Corpuscular Volume 89.6, Mean Corpuscular Hemoglobin 29.9, Mean Corpuscular Hemoglobin Concent 33.3, Mean Platelet Volume 10.2, Neutrophils (%) (Auto) 53.4, Lymphocytes (%) (Auto) 30.9, Monocytes (%) (Auto) 12.6, Eosinophils (%) (Auto) 1.8, Basophils (%) (Auto) 0.9, Neutrophils # (Auto ) 3.05, Lymphocytes # (Auto) 1.76, Monocytes # (Auto) 0.72, Eosinophils # (Auto ) 0.10, Basophils # (Auto) 0.05 03/25/17 15:50 Test 03/25/17 15:50 White Blood Count 5.70 K/uL (4.8-10.8) Red Blood Count 4.25 M/uL (4.2-5.4) Hemoglobin 12.7 g/dL (12.0-16.0) Hematocrit 38.1 % (37-47) Mean Corpuscular Volume 89.6 fL (80-100) Mean Corpuscular Hemoglobin 29.9 pg (25-34) Mean Corpuscular Hemoglobin Concent 33.3 g/dl (32-36) Platelet Count 220 K/uL (130-400) Mean Platelet Volume 10.2 fL (7.4-10.4) Neutrophils (%) (Auto) 53.4 % Lymphocytes (%) (Auto) 30.9 % Monocytes (%) (Auto) 12.6 % Eosinophils (%) (Auto) 1.8 % Basophils (%) (Auto) 0.9 % Neutrophils # (Auto) 3.05 K/uL (1.4-6.5) Lymphocytes # (Auto) 1.76 K/uL (1.2-3.4) Monocytes # (Auto) 0.72 K/uL (0.11-0.59) Eosinophils # (Auto) 0.10 K/uL (0-0.5) Basophils # (Auto) 0.05 K/uL (0-0.2) RDW Standard Deviation 45.4 fL (36.4-46.3) RDW Coefficient of Variation 13.7 % (11.5-14.5) Immature Granulocyte % (Auto) 0.4 % Immature Granulocyte # (Auto) 0.02 K/uL (0.00-0.02) Prothrombin Time 52.1 SECONDS (9.0-12.0) Prothromb Time International Ratio 4.6 (0.9-1.1) Activated Partial Thromboplast Time 35.5 SECONDS (21.0-31.0) Partial Thromboplastin Ratio 1.4 Anion Gap 7.0 mmol/L (3-11) Est Creatinine Clear Calc Drug Dose 67.2 ml/min Estimated GFR () 85.0 Estimated GFR (Non- 73.3 BUN/Creatinine Ratio 18.3 (10-20) Calcium Level 9.9 mg/dl (8.5-10.1) Troponin I < 0.015 ng/ml (0-0.045) Laboratory results per my review. Medications Administered Medications (Trade) Dose Ordered Sig/Amauri Route Start Time Stop Time Status Last Admin Dose Admin Sodium Chloride 500 ml @ 999 mls/hr Q31M STAT IV 03/25/17 15:40 03/25/17 16:10 DC 03/25/17 16:22 999 MLS/HR Phytonadione 10 mg/Sodium Chloride 51 ml @ 102 mls/hr ONE ONCE IV 03/25/17 15:45 03/25/17 16:14 DC 03/25/17 16:22 102 MLS/HR ECG Indication: chest pain Rate (beats per minute): 78 Rhythm: other (ventricular paced) Findings: LBBB, left axis deviation ED Course ED COURSE: Vital signs were reviewed and showed hypertension. The patients medical record was reviewed The above diagnostic studies were performed and reviewed. ED treatments and interventions as stated above. 1536: The patient was evaluated in room B6. A complete history and physical examination was performed. 1540: NSS 500 ml @ 999 mls/hr IV. 1545: Phytonadione 10 mg/Sodium chloride 51 ml @ 102 mls/hr IV. 1636: Upon reevaluation, the patient is resting comfortably. I discussed my findings with the patient and she understands and agrees with the treatment plan. Based on the patients age, coexisting illnesses, exam and lab findings the decision to treat as an inpatient was made. The patient remained stable while under my care. The patient will be evaluated for further management. 1639: I reviewed the patient's case with Dr. Hou, [facility] hospitalist. He will evaluate the patient for further management. 1654: Toradol Inj 30 mg IV. 1658: The patient is having chest pain again. A repeat EKG shows ventricular paced, rate 70, left axis deviation, LBBB. Medical Decision Differential diagnoses includes but is not limited to pneumonia, bronchitis, COPD/Asthma exacerbation, pneumothorax, pulmonary embolism, congestive heart failure, acute coronary syndrome. Patient is a 76-year-old female referred in by cardiology for a pericardial effusion which is likely hemorrhagic in nature. Symptoms restarted this past Friday when her Coumadin was restarted. There was no signs attempt nod and patient was transferred to the ER. CBC along with BMP and troponin were negative. INR was elevated at 4.6. IV vitamin K was given following a long discussion in regards to reversal. EKG was unremarkable. Patient was admitted to internal medicine for a pericardial effusion which is likely hemorrhagic with a supratherapeutic INR. Medication Reconcilliation Current Medication List: was personally reviewed by me Blood Pressure Screening Patient's blood pressure: Elevated blood pressure Blood pressure disposition: Elevated BP felt to be situational Consults Time Called: [phone] Consulting Physician: Dr. Hou [facility] hospitalist Returned Call: [phone] I reviewed the patient's case with him. He will evaluate the patient for further management. Impression Primary Impression: Pericardial effusion Additional Impression: Elevated INR Scribe Attestation The scribe's documentation has been prepared under my direction and personally reviewed by me in its entirety. I confirm that the note above accurately reflects all work, treatment, procedures, and medical decision making performed by me. Departure Information Dispostion Being Evaluated By Hospitalist Referrals No Doctor, Assigned (PCP) Patient Instructions My [facility] Problem Qualifiers
[2017-03-25 20:29] VITALS: BP 91/59; PULSE 75; TEMP 36.9; O2SAT 95
[2017-03-25] MEDS: FLUTICASONE PROPIONATE NA SPR 16 GM BTL NAE SCH (21:26)
[2017-03-25] MEDS: COLCHICINE 0.6 MG TAB PO SCH (21:26)
[2017-03-25] MEDS: SOTALOL HCL 80 MG TAB PO SCH (21:27)
[2017-03-25] MEDS: NAPROXEN 250 MG TAB PO SCH ×2 (21:27→21:31)
[2017-03-25] MEDS: RANITIDINE HCL 150 MG TAB PO SCH (21:28)
[2017-03-25] MEDS: SERTRALINE HCL 100 MG TAB PO SCH (21:28)
[2017-03-25 23:16] VITALS: BP 104/67; PULSE 69; TEMP 36.7; O2SAT 96
[2017-03-26] VITALS (8 sets, daily range): BP systolic 106–131; BP diastolic 63–80; PULSE 70–76; TEMP 36.4–37.1; O2SAT 94–98
[2017-03-26] MEDS: LEVOTHYROXINE 100 MCG TAB PO SCH (06:19)
--- NOTE | 2017-03-26 07:01 | Clinical Documentation Query ---
CLINICAL DOCUMENTATION QUERY 76 year old female who takes Warfarin presents to the Emergency Room with complaints of persistent chest pain found to have pericardial effusion. In your clinical opinion is this patient being managed for: ( ) Suspected Warfarin induced hemoparicardium ( ) Not Agree ( ) Other explanation of clinical findings (Please Explain) ( X ) Unable to determine (Please Define) at this time. ( ) Need to Discuss The medical record reflects the following clinical findings, treatment, and risk factors. Clinical Indicators: INR 4.6, Outpatient Echo showed moderate pericardial effusion without tamponade. Treatment: IV Vitamin K, Cardiology consult, Toradol, Risk Factors: Warfarin therapy, recent hemopericardium due to Rivaroxaban therapy Please clarify and document your clinical opinion in the progress notes and discharge summary. Terms such as "probable", "suspected", "likely", "questionable", "possible", or "still to be ruled out" are acceptable. IF IN AGREEMENT, YOU MUST DOCUMENT ABOVE DIAGNOSTIC STATEMENT IN DAILY PROGRESS NOTES AND DISCHARGE SUMMARY. This document is not part of the patient's record. Thank You, Chris Lama, ROSSY [phone]
[2017-03-26 07:57] LABS: INR 1.3 (0.9-1.1); PROTHROMBIN TIME (PATIENT) 13.8 SECONDS (9.0-12.0)
[2017-03-26] MEDS: SOTALOL HCL 80 MG TAB PO SCH ×2 (10:09→20:26)
[2017-03-26] MEDS: RANITIDINE HCL 150 MG TAB PO SCH ×2 (10:10→20:26)
[2017-03-26] MEDS: ROSUVASTATIN CALCIUM 5 MG TAB PO SCH (10:10)
[2017-03-26] MEDS ORDERED: ASPIRIN 81 MG ECTAB PO STA (10:35)
--- NOTE | 2017-03-26 10:41 | Cardiology Consultation ---
Cardiology Consultation Date of Consultation: Mar 26, 2017 History of Present Illness Catracho Penn is a 76 year old female seen in cardiology consultation per the request of Dr. Hou for evaluation of chest discomfort, pericardial effusion. The patient's primary camouflage assembler is Dr. Jason Gonzalez of our practice would refer the patient to the emergency room yesterday after having been reassessed in our office. The patient is increasing complex cardiac history. Last week she felt well from a chest pain standpoint and it seemed Dr. Jason Gonzalez in routine cardiology follow-up. She is doing well from a chest pain and pericarditis standpoint and her echo findings were stable. Her colchicine dose was reduced to 2 gastrointestinal side effects. On Friday, she noted degree of chest discomfort in the mid and right portion of her chest that seem to be worse with deep breath. This was before she started the Coumadin therapy. Subsequent started Coumadin 2.5 milligrams, and noted worsening chest discomfort on Friday prompting her to be seen in week in clinic. On Friday she was seen in the emergency department. A chest x-ray reveals slightly increased size in the cardiac silhouette compared to the previous chest x-ray. On Friday, she was notified that her INR was elevated at 3.8. History in addition to the coagulopathy, showed increased amount of chest discomfort and increased pericardial effusion compared to the echocardiogram performed the week before and she was referred to the emergency room for reversal of her INR, and for treatment of pericarditis. Erythrocyte sedimentation rate on presentation was within normal limits, with the C-reactive protein was mildly elevated at 1.81 milligrams per deciliter. Her troponin is negative. Her recent cardiac history is well summarized in her admission history and physical by Dr. Hou. The patient underwent permanent pacemaker implantation with a [employer]tronic dual chamber device, and AV junction ablation at [facility] earlier this summer with Dr. Samayoa. She presented to [facility] on 02/21/17 with chest pain and hypotension. A CT and echo revealed small pericardial effusion with no definite temporal not. She's felt to have possibly hemopericardium and her Xarelto was discontinued. She was ultimately transferred to [facility] for further evaluation was felt that she did not require pericardial drainage and she was discharged to home with plans for an aspirin taper off of anticoagulation. She was readmitted to [facility] on 02/27/17 with increasing shortness of breath was noted to have bilateral pleural effusions, likely due to the aggressive fluid resuscitation she received when she had been hypotensive during the previous admission. Past Medical/Surgical History Problem List: Medical Problems: (1) Bronchiectasis (2) GERD (gastroesophageal reflux disease) (3) History of pancreatitis (4) History of pericarditis (5) HLD (hyperlipidemia) (6) Hypothyroidism (7) Osteoarthritis (8) Osteoporosis (9) Paroxysmal atrial fibrillation Surgical Problems: (1) H/O arthroscopic knee surgery (2) H/O partial thyroidectomy (3) History of appendectomy (4) History of sinus surgery (5) History of tonsillectomy (6) History of tubal ligation (7) Hx of cholecystectomy (8) Status post atrioventricular brayan ablation (9) Status post cardiac pacemaker procedure History 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 Review Of Systems See above for pertinent positives & negatives. A total of 10 systems reviewed and were otherwise negative. Allergies Coded Allergies: Iodinated Diagnostic Agents (Verified Allergy, Severe, ANAPHYLAXIS, ) Shellfish (Verified Allergy, Severe, "Seafood" -- ANAPHYLAXIS, 02/21/17) Erythromycin (Verified Allergy, Intermediate, RASH, 03/25/17) Penicillins (Verified Allergy, Intermediate, RASH, 02/21/17) FROM CHILDHOOD Simvastatin (Verified Allergy, Intermediate, RASH, 03/25/17) Celecoxib (Verified Allergy, Mild, RASH, 03/25/17) Nystatin (Verified Allergy, Mild, RASH, 03/25/17) Rivaroxaban (Verified Adverse Reaction, Severe, 0, 03/25/17) possivble hemorrhagic pericardial effusion Moxifloxacin (Verified Adverse Reaction, Intermediate, HALUCINATIONS, 03/25) Fish (Verified Adverse Reaction, Mild, GI SYMPTOMS, 02/21/17) Medications Reported Home Medications Medications Dose Route/Sig Max Daily Dose Days Date Category Dose Instructions Coumadin (Warfarin Sod) 2.5 Mg Tab 2.5 Mg PO DAILY 03/25/17 Reported Colchicine 0.6 Mg Tab 0.6 Mg PO QPM 03/25/17 Reported Levalbuterol HCl (Levalbuterol) 1.25 Mg/3 Ml Nebu 3 Ml NEB Q8 PRN 02/28/17 Reported Sotalol Hcl 80 Mg Tab 80 Mg PO BID 02/28/17 Reported Flax Seed Oil (Flaxseed (Linseed)) 1,000 Mg Cap 1,000 Mg PO 3XWK 02/28/17 Reported Flonase Allergy Relief (Fluticasone Propionate (Nasal)) 50 Mcg/Act Spr 1 [place] BERNICE QPM 02/21/17 Reported Spiriva Respimat (Tiotropium [place]) 2.5 Mcg/Act Spr 2 Puff INH QAM 02/21/17 Reported Calcium Citrate + D (Calcium Citrate-Vitamin D) 1 Tab Tab 1 Tab PO DAILY 11/13/16 Reported Probiotic (Probiotic Product) 1 Tab Tab 1 Tab PO DAILY 09/17/16 Reported FRIDAY, FRIDAY, FRIDAY Biotin 5 Mg Tab 5 Mg PO 3XWK 12/15/15 Reported TAKES FRIDAY/FRIDAY/FRIDAY Zoloft (Sertraline HCl) 100 Mg Tab 100 Mg PO HS 11/27/15 Reported Zantac (Ranitidine HCl) 150 Mg Tab 150 Mg PO BID 30 11/27/15 Reported Levothyroxine Sodium 100 Mcg Tab 100 Mcg PO QAM 11/27/15 Reported Crestor (Rosuvastatin Calcium) 5 Mg Tab 5 Mg PO 3XWK 11/27/15 Reported EVERY FRIDAY/FRIDAY/FRIDAY Physical Exam Vital Signs (Last 8hrs): Last 8 Hrs Date Time Temp Pulse Resp B/P (MAP) Pulse Ox O2 Delivery O2 Flow Rate FiO2 03/26/17 07:41 36.8 72 18 131/63 (85) 95 03/26/17 04:49 Room Air 03/26/17 03:43 36.4 71 18 117/80 (92) 95 Room Air General Appearance: Alert and Oriented x3. NAD. Head: Normocephalic Atraumatic. Eyes: PERRLA, EOMI, conjunctiva and sclera clear Neck: Supple. No carotid bruits noted. No JVD. No HJD. Respiratory: Breath sounds clear to auscultation bilaterally. No w/r/r. Cardiovascular: Reg rate and rhythm. S1 and S2 noted. No murmurs, rubs, gallops. PMI non displace. Abdomen: Normal bowel sounds, soft nontender. no abdominal bruits. Extremities: No edema, no clubbing or cyanosis. distal pulses 2/4 bilaterally. Neuro: No focal deficits. Psychiatric: Normal affect. Data Last 24 Hours Test 03/25/17 15:50 03/26/17 06:52 White Blood Count 5.70 K/uL Red Blood Count 4.25 M/uL Hemoglobin 12.7 g/dL Hematocrit 38.1 % Mean Corpuscular Volume 89.6 fL Mean Corpuscular Hemoglobin 29.9 pg Mean Corpuscular Hemoglobin Concent 33.3 g/dl Platelet Count 220 K/uL Mean Platelet Volume 10.2 fL Neutrophils (%) (Auto) 53.4 % Lymphocytes (%) (Auto) 30.9 % Monocytes (%) (Auto) 12.6 % Eosinophils (%) (Auto) 1.8 % Basophils (%) (Auto) 0.9 % Neutrophils # (Auto) 3.05 K/uL Lymphocytes # (Auto) 1.76 K/uL Monocytes # (Auto) 0.72 K/uL Eosinophils # (Auto) 0.10 K/uL Basophils # (Auto) 0.05 K/uL RDW Standard Deviation 45.4 fL RDW Coefficient of Variation 13.7 % Immature Granulocyte % (Auto) 0.4 % Immature Granulocyte # (Auto) 0.02 K/uL Prothrombin Time 52.1 SECONDS 13.8 SECONDS Prothromb Time International Ratio 4.6 1.3 Activated Partial Thromboplast Time 35.5 SECONDS Partial Thromboplastin Ratio 1.4 Sodium Level 139 mmol/L Potassium Level 3.9 mmol/L Chloride Level 108 mmol/L Carbon Dioxide Level 24 mmol/L Anion Gap 7.0 mmol/L Blood Urea Nitrogen 14 mg/dl Creatinine 0.78 mg/dl Est Creatinine Clear Calc Drug Dose 67.2 ml/min Estimated GFR () 85.0 Estimated GFR (Non- 73.3 BUN/Creatinine Ratio 18.3 Random Glucose 88 mg/dl Calcium Level 9.9 mg/dl Troponin I < 0.015 ng/ml Erythrocyte Sedimentation Rate 16 mm/hr C-Reactive Protein 1.81 mg/dl Echocardiogram performed 03/25/17 at [facility]: A small circumferential pericardial effusion is noted slightly greater amounts of fluid along the posterior lateral wall and right ventricular free wall. Cardiac Was Absent. Compared To The Last Available Study, Dated 03/18/17, the Pericardial Effusion Size Was Slightly Greater without Hemodynamic Compromise. EKG: Ventricular paced rhythm at 60 bpm, with underlying atrial fibrillation Telemetry reviewed: Injury to paced rhythm, underlying atrial fibrillation suspected given EKG findings. Assessment & Plan Impression: 76-year-old female 1. Recurrent pericarditis with mild increase in pericardial fluid and repeat echocardiogram performed 03/25/17 compared to 03/18/17 2. Coagulopathy having recently started anticoagulation with Coumadin 2??5 mg daily, INR greater than 4 on admission, normalized today after receiving vitamin K 3. Paroxysmal, currently suspected persistent atrial fibrillation status post AV junction ablation and permanent pacemaker implantation. Patient remains on sotalol as despite her AV junction ablation, symptomatic standpoint the sotalol was maintained Ben to hopefully maintain sinus rhythm and improve AV synchrony 4. Compensated diastolic heart failure 5. History of chronic lung disease, bronchiectasis, stable Plan: The patient did not tolerate twice a day colchicine due to gastrointestinal side effects including diarrhea and therefore this is been reduced to 0.6 mg daily. She declined naproxen therapy, as she had been consult on the past to avoid nonsteroidal anti-inflammatories. Given her underlying condition, NSAID therapy is not ideal. During her admission for pericarditis at [facility] last month she's been treated with high-dose aspirin for, however has been to reinitiate this due to concerns of hemorrhagic component of her pericardial effusion as it seems to have occurred/ worsened in the setting of Coumadin initiation. At this point, I recommend proceeding with low-dose prednisone, starting with 20 mg daily, would plan for long slow taper to 2.5 mg daily over a 2 to three- week interval. Typically treatment with prednisone is avoided due to risk of rebound once stopping the prednisone, but given her comorbidities and recurrent symptoms, I think it is reasonable to proceed with this medication. Typically when started a low-dose and tapered slowly, rebound is less likely. I would have Xen[employer]cet[employer], and check her pacemaker. This will be helpful and ensuring that we know her underlying rhythm. I anticipate that she is in atrial fibrillation based on her EKG findings. Unfortunately, she cannot be anticoagulated at present given the pericardial fluid and recent coagulopathy. Remain in the hospital. Donte Chau DO, FACC, FACOI Associate Toe Closing Machine Tender [facility] [place] [facility]
--- NOTE | 2017-03-26 13:02 | Progress Note ---
Internal Med Progress Note Date of Service: Mar 26, 2017. Provider Documentation: SUBJECTIVE: Seen and examined at bedside Feels well today Denies chest pain, palpitations, SOB Had 2 loose BMs yesterday, noted to be on colchicine OBJECTIVE: Vital Signs-as noted below Physical Exam: General Appearance:Moderately built and nourished, no apparent distress Head: normocephalic, Atraumatic Eyes: normal inspection, EOMI, PERRL Neck: supple, Trachea midline Respiratory/Chest: Normal breath sounds, CTA Cardiovascular: S1, S2, No murmur Abdomen/GI:Soft, Non tender, Bowel sounds present Extremities/Musculoskelatal:normal inspection, no edema Neurologic/Psych:AAOX3, grossly no focal neurological deficits Skin: normal color, warm Lab data as noted below. ASSESSMENT & PLAN: RECURRENT PERICARDITIS / PERICARDIAL EFFUSION Previously attributed to spontaneous hemopericardium while taking rivaroxaban. ECHO on 03/25/17 as Outpatient showed moderate pericardial effusion without tamponade. Continue colchicine, Prednisone Patient refused Naproxen as was previously informed to avoid NSAIDs Needs slow prednisone taper over 2-3 weeks period Currently taking colchicine once day secondary to GI side effects Appreciate cardiology Input Coumadin held ELEVATED INR INR 4.6 on admission>>>>1.3 S/P vitamin K 10 mg IV Resolved PAROXYSMAL ATRIAL FIBRILLATION S/P AV ablation + pacemaker implantation. Continue sotalol Hold warfarin for now HYPOTHYROIDISM Continue levothyroxine. DYSLIPIDEMIA Continue rosuvastatin. LOOSE STOOLS Probably due to colchicine. Recent course of antibiotics for UTI. stool for C diff pending VTE Px warfarin held due to pericardial effusion. SCD's. Ambulate. CODE STATUS: Full code DISPOSITION Family Medicine follow-up with Dr. Allan. Cariology follow-up with Dr. Gonzalez. Vital Signs: Date Time Temp Pulse Resp B/P (MAP) Pulse Ox O2 Delivery O2 Flow Rate FiO2 03/26/17 12:00 Room Air 03/26/17 11:38 36.8 70 18 106/66 (79) 98 03/26/17 08:00 Room Air 03/26/17 07:41 36.8 72 18 131/63 (85) 95 03/26/17 04:49 Room Air 03/26/17 03:43 36.4 71 18 117/80 (92) 95 Room Air 03/26/17 00:09 Room Air 03/25/17 23:16 36.7 69 18 104/67 (79) 96 Room Air 03/25/17 20:39 Room Air 03/25/17 20:29 36.9 75 22 91/59 (70) 95 Room Air 03/25/17 18:44 36.7 81 20 123/84 98 Room Air 03/25/17 18:19 36.7 81 22 123/84 (97) 97 Room Air 03/25/17 17:41 36.5 70 18 123/89 99 03/25/17 17:33 70 18 123/89 99 Room Air 03/25/17 16:51 70 16 143/106 98 Room Air 03/25/17 16:24 76 16 118/73 96 Room Air 03/25/17 16:06 70 03/25/17 15:31 36.5 78 18 109/73 96 Lab Results: Results Past 24 Hours Test 03/25/17 15:50 03/26/17 06:52 Range/Units White Blood Count 5.70 4.8-10.8 K/uL Red Blood Count 4.25 4.2-5.4 M/uL Hemoglobin 12.7 12.0-16.0 g/dL Hematocrit 38.1 37-47 % Mean Corpuscular Volume 89.6 80-100 fL Mean Corpuscular Hemoglobin 29.9 25-34 pg Mean Corpuscular Hemoglobin Concent 33.3 32-36 g/dl Platelet Count 220 130-400 K/uL Mean Platelet Volume 10.2 7.4-10.4 fL Neutrophils (%) (Auto) 53.4 % Lymphocytes (%) (Auto) 30.9 % Monocytes (%) (Auto) 12.6 % Eosinophils (%) (Auto) 1.8 % Basophils (%) (Auto) 0.9 % Neutrophils # (Auto) 3.05 1.4-6.5 K/uL Lymphocytes # (Auto) 1.76 1.2-3.4 K/uL Monocytes # (Auto) 0.72 0.11-0.59 K/uL Eosinophils # (Auto) 0.10 0-0.5 K/uL Basophils # (Auto) 0.05 0-0.2 K/uL RDW Standard Deviation 45.4 36.4-46.3 fL RDW Coefficient of Variation 13.7 11.5-14.5 % Immature Granulocyte % (Auto) 0.4 % Immature Granulocyte # (Auto) 0.02 0.00-0.02 K/uL Prothrombin Time 52.1 13.8 9.0-12.0 SECONDS Prothromb Time International Ratio 4.6 1.3 0.9-1.1 Activated Partial Thromboplast Time 35.5 21.0-31.0 SECONDS Partial Thromboplastin Ratio 1.4 Sodium Level 139 136-145 mmol/L Potassium Level 3.9 3.5-5.1 mmol/L Chloride Level 108 98-107 mmol/L Carbon Dioxide Level 24 21-32 mmol/L Anion Gap 7.0 3-11 mmol/L Blood Urea Nitrogen 14 7-18 mg/dl Creatinine 0.78 0.60-1.20 mg/dl Est Creatinine Clear Calc Drug Dose 67.2 ml/min Estimated GFR () 85.0 Estimated GFR (Non- 73.3 BUN/Creatinine Ratio 18.3 10-20 Random Glucose 88 70-99 mg/dl Calcium Level 9.9 8.5-10.1 mg/dl Troponin I < 0.015 0-0.045 ng/ml Erythrocyte Sedimentation Rate 16 0-21 mm/hr C-Reactive Protein 1.81 0-0.29 mg/dl
[2017-03-26 18:59] LABS: URINE APPEARANCE CLOUDY (CLEAR); URINE BILIRUBIN NEG (NEG); URINE COLOR YELLOW; URINE EPITHELIAL CELL AUTO 0-5 /lpf (0-5); URINE NITRITE NEG (NEG); URINE PH 5.5 (4.5-7.5); URINE SPECIFIC GRAVITY 1.012 (1.000-1.030); UROBILINOGEN NEG (NEG); ZZUR CULT IF INDIC CLEAN CATCH YES
[2017-03-26 19:21] LABS: MANUAL MICROSCOPIC REQUIRED? NO; REVIEW REQ? NO
[2017-03-26] MEDS: FLUTICASONE PROPIONATE NA SPR 16 GM BTL NAE SCH (20:25)
[2017-03-26] MEDS: SERTRALINE HCL 100 MG TAB PO SCH (20:26)
[2017-03-26] MEDS: COLCHICINE 0.6 MG TAB PO SCH (20:26)
[2017-03-27] VITALS (9 sets, daily range): BP systolic 116–139; BP diastolic 75–85; PULSE 70–78; TEMP 36.4–36.8; O2SAT 93–98
[2017-03-27] MEDS: LEVOTHYROXINE 100 MCG TAB PO SCH (05:35)
[2017-03-27 08:19] LABS: HEMATOCRIT 35.6 % (37-47); MEAN CELL VOLUME 89.2 fL (80-100); MEAN CORPUSCULAR HEMOGLOBIN 30.1 pg (25-34); MEAN CORPUSCULAR HGB CONC 33.7 g/dl (32-36); PLATELET COUNT 198 K/uL (130-400); RED BLOOD COUNT 3.99 M/uL (4.2-5.4)
[2017-03-27 08:27] LABS: INR 1.1 (0.9-1.1); PROTHROMBIN TIME (PATIENT) 12.3 SECONDS (9.0-12.0)
[2017-03-27 08:56] LABS: CALCIUM 9.4 mg/dl (8.5-10.1); CREATININE 0.63 mg/dl (0.60-1.20); POTASSIUM 3.6 mmol/L (3.5-5.1)
[2017-03-27] MEDS: RANITIDINE HCL 150 MG TAB PO SCH ×2 (09:22→20:26)
[2017-03-27] MEDS: SOTALOL HCL 80 MG TAB PO SCH (09:23)
--- NOTE | 2017-03-27 09:42 | Cardiology Follow-Up ---
Subjective General Date of Service: Mar 27, 2017. Chief Complaint: follow up pericarditis History of Present Illness The patient is a 76 year old female seen in cardiology follow-up. She feels well. She had a brief dizziness episode today, but feels better. Heart rate and blood pressure been stable. Telemetry reveals ventricular paced rhythm. Her pacemaker was interrogated yesterday. The formal report is not available for review on her chart right now, and is yet to be electronically, but I had discussed it with the [employer] insurance account representative and revealed that her underlying rhythm was atrial fibrillation, with stable lead impedances consistent with normal pacemaker function, and low likelihood of lead perforation. The patient has received prednisone and is tolerating well. She denies any dyspepsia at present. Allergies Coded Allergies: Iodinated Diagnostic Agents (Verified Allergy, Severe, ANAPHYLAXIS, ) Shellfish (Verified Allergy, Severe, "Seafood" -- ANAPHYLAXIS, 02/21/17) Erythromycin (Verified Allergy, Intermediate, RASH, 03/25/17) Penicillins (Verified Allergy, Intermediate, RASH, 02/21/17) FROM CHILDHOOD Simvastatin (Verified Allergy, Intermediate, RASH, 03/25/17) Celecoxib (Verified Allergy, Mild, RASH, 03/25/17) Nystatin (Verified Allergy, Mild, RASH, 03/25/17) Rivaroxaban (Verified Adverse Reaction, Severe, 0, 03/25/17) possivble hemorrhagic pericardial effusion Moxifloxacin (Verified Adverse Reaction, Intermediate, HALUCINATIONS, 03/25) Fish (Verified Adverse Reaction, Mild, GI SYMPTOMS, 02/21/17) Social History Smoking Status: Never Smoker Hx Tobacco Use In Past Year?: No Hx Alcohol Use - Type And Amou: No Hx Substance Use - Type And Am: No Problem List Medical Problems: (1) Atrial fibrillation with RVR Status: Acute (2) Atrial fibrillation with RVR Status: Acute (3) Bilateral pleural effusion Status: Acute (4) Elevated INR Status: Acute (5) Elevated troponin Status: Acute (6) Hx of gastroesophageal reflux (GERD) Status: Acute (7) Left sided chest pain Status: Acute (8) PAC (premature atrial contraction) Status: Acute (9) Pericardial effusion Status: Acute (10) Precordial chest pain Status: Acute (11) Precordial chest pain Status: Acute (12) Substernal chest pain Status: Acute Social History Problems: (1) Status post placement of cardiac pacemaker Status: Acute Physical Exam Vital Signs Last Vital Signs Documentation Date Time Temp Pulse Resp B/P (MAP) Pulse Ox O2 Delivery O2 Flow Rate FiO2 03/27/17 08:01 36.8 78 18 122/76 (91) 98 03/27/17 04:29 Room Air Physical Exam Constitutional: Level of Distress: NAD Head: normocephalic ENMT: normal ENT inspection Neck: supple Lungs: Auscultation: no wheezing, no rales/crackles, no rhonchi Cardiovascular: Heart Auscultation: RRR, no murmurs, no rubs Extremities: no edema Neurologic: Gait & Station: pertinent finding (no focal neurologic deficits) Assessment and Plan Assessment and Plan Impression: 76-year-old female 1. Recurrent pericarditis with mild increase in pericardial fluid and repeat echocardiogram performed 03/25/17 compared to 03/18/17 2. Coagulopathy having recently started anticoagulation with Coumadin 2.5 mg daily, INR greater than 4 on admission, normalized after receiving vitamin K 3. Paroxysmal, currently suspected persistent atrial fibrillation status post AV junction ablation and permanent pacemaker implantation. Patient remains on sotalol as despite her AV junction ablation, symptomatic standpoint the sotalol was maintained Ben to hopefully maintain sinus rhythm and improve AV synchrony 4. Compensated diastolic heart failure 5. History of chronic lung disease, bronchiectasis, stable Plan: Given persistent atrial fibrillation noted as her underlying rhythm on device check, I'm going to discontinue her sotalol. Sotalol had been kept in place for further rhythm control because although she had AV junction ablation, was felt that should feel better with sinus rhythm and A-V mechanical synchrony. She is in atrial fibrillation status post AV junction ablation with ventricular paced rhythm, and she feels well at present, and given the fact that she is off anticoagulation, I worry about the risks of her spontaneously converting to sinus rhythm while on sotalol, and being at risk for thromboembolic stroke. Therefore recommend we discontinue sotalol, and we'll transition her to metoprolol tartrate 25 mg twice a day. Although looking ahead, given her history of AV junction ablation, this medication may not be necessary for blood pressure and heart rate are well controlled in the future. The patient notes significant clinical interval improvement. From my standpoint, she is stable for discharge with the following medication plan: Aspirin 81 mg by mouth daily for stroke prophylaxis. Metoprolol 25 mg by mouth twice a day. Sotalol has been discontinued. Colchicine 0.6 mg by mouth daily at bedtime Prednisone taper over several weeks Prednisone 20 mg daily 5 days Prednisone 15 mg daily 5 days Prednisone 10 mg daily 5 days Prednisone 5 mg daily 5 days Prednisone 2.5 mg daily 5 days Prednisone 2.5 mg every other day 3 doses. She is to remain on ranitidine for GI prophylaxis. She is to remain off anticoagulation for at least the next 4 weeks, and will plan outpatient follow-up and repeat echocardiogram with Dr. Gonzalez at around that time. Tyrell Chau DO Laboratory Results Last 24 Hours Test 03/26/17 18:00 03/27/17 08:04 Urine Color YELLOW Urine Appearance CLOUDY Urine pH 5.5 Urine Specific [place] 1.012 Urine Protein NEG Urine Glucose (UA) NEG Urine Ketones NEG Urine Occult Blood 2+ Urine Nitrite NEG Urine Bilirubin NEG Urine Urobilinogen NEG Urine Leukocyte Esterase LARGE Urine WBC (Auto) >30 /hpf Urine RBC (Auto) 10-30 /hpf Urine Hyaline Casts (Auto) 0 /lpf Urine Epithelial Cells (Auto) 0-5 /lpf Urine Bacteria (Auto) 4+ White Blood Count 7.00 K/uL Red Blood Count 3.99 M/uL Hemoglobin 12.0 g/dL Hematocrit 35.6 % Mean Corpuscular Volume 89.2 fL Mean Corpuscular Hemoglobin 30.1 pg Mean Corpuscular Hemoglobin Concent 33.7 g/dl RDW Standard Deviation 44.9 fL RDW Coefficient of Variation 13.5 % Platelet Count 198 K/uL Mean Platelet Volume 10.0 fL Prothrombin Time 12.3 SECONDS Prothromb Time International Ratio 1.1 Sodium Level 140 mmol/L Potassium Level 3.6 mmol/L Chloride Level 109 mmol/L Carbon Dioxide Level 25 mmol/L Anion Gap 6.0 mmol/L Blood Urea Nitrogen 12 mg/dl Creatinine 0.63 mg/dl Est Creatinine Clear Calc Drug Dose 84.1 ml/min Estimated GFR () 100.3 Estimated GFR (Non- 86.5 BUN/Creatinine Ratio 19.0 Random Glucose 114 mg/dl Calcium Level 9.4 mg/dl
[2017-03-27] MEDS: ASPIRIN 81 MG ECTAB PO SCH (10:05)
[2017-03-27] MEDS: TIOTROPIUM BROMIDE 28 PUFF/4 GM INH INH SCH (10:05)
--- NOTE | 2017-03-27 10:39 | Progress Note ---
Internal Med Progress Note Date of Service: Mar 27, 2017. Provider Documentation: SUBJECTIVE: Seen and examined at bedside States having transient dizziness this morning which resolved ALso had urinary urgency and frequency yesterday but denies dysuria Denies chest pain, palpitations, SOB Family at bedside OBJECTIVE: Vital Signs-as noted below Physical Exam: General Appearance:Moderately built and nourished, no apparent distress Head: normocephalic, Atraumatic Eyes: normal inspection, EOMI, PERRL Neck: supple, Trachea midline Respiratory/Chest: Normal breath sounds, CTA Cardiovascular: S1, S2, No murmur Abdomen/GI:Soft, Non tender, Bowel sounds present Extremities/Musculoskelatal:normal inspection, no edema Neurologic/Psych:AAOX3, grossly no focal neurological deficits Skin: normal color, warm Lab data as noted below. ASSESSMENT & PLAN: RECURRENT PERICARDITIS / PERICARDIAL EFFUSION Previously attributed to spontaneous hemopericardium while taking rivaroxaban. ECHO on 03/25/17 as Outpatient showed moderate pericardial effusion without tamponade. Continue colchicine, Prednisone taper Patient refused Naproxen as was previously informed to avoid NSAIDs Appreciate cardiology Input Plan to hold coumadin for next 4 weeks and get repeat ECHO with Dr. Gonzalez as outpatient Will taper Prednisone over several weeks as per cardiology recommendations UTI: Outpatient Urine culture grew Klebsiella Pneumonia, pansensitive Completed 7 days of Macrobid recently Urine culture: gram negative bacilli Start Rocephin ELEVATED INR INR 4.6 on admission>>>>1.1 S/P vitamin K 10 mg IV Resolved PAROXYSMAL ATRIAL FIBRILLATION S/P AV ablation + pacemaker implantation. Pacemaker Interrogated yesterday sotalol was discontinued and transitioned Metoprolol per cardiology recommendations warfarin held for atleast 4 weeks for now HYPOTHYROIDISM Continue levothyroxine. DYSLIPIDEMIA Continue rosuvastatin. LOOSE STOOLS Probably due to colchicine. Recent course of antibiotics for UTI. stool for C diff pending Patient denies having diarrhea since hospitalization VTE Px warfarin held due to pericardial effusion. SCD's. Ambulate. CODE STATUS: Full code DISPOSITION Family Medicine follow-up with Dr. Allan. Cariology follow-up with Dr. Gonzalez. Vital Signs: Date Time Temp Pulse Resp B/P (MAP) Pulse Ox O2 Delivery O2 Flow Rate FiO2 03/27/17 08:01 36.8 78 18 122/76 (91) 98 03/27/17 08:00 Room Air 9/14/17 04:29 Room Air 03/27/17 04:19 36.5 73 22 116/75 (89) 96 Room Air 03/27/17 00:15 Room Air 03/26/17 23:54 36.5 70 22 117/78 (91) 95 Room Air 03/26/17 20:00 94 Room Air 03/26/17 19:28 36.9 76 18 122/76 (91) 94 Room Air 03/26/17 16:00 94 Room Air 03/26/17 15:23 37.1 76 18 117/74 (88) 94 Room Air 03/26/17 12:00 Room Air 03/26/17 11:38 36.8 70 18 106/66 (79) 98 Lab Results: Results Past 24 Hours Test 03/26/17 18:00 03/27/17 08:04 Range/Units Urine Color YELLOW Urine Appearance CLOUDY CLEAR Urine pH 5.5 4.5-7.5 Urine Specific [place] 1.012 1.000-1.030 Urine Protein NEG NEG Urine Glucose (UA) NEG NEG Urine Ketones NEG NEG Urine Occult Blood 2+ NEG Urine Nitrite NEG NEG Urine Bilirubin NEG NEG Urine Urobilinogen NEG NEG Urine Leukocyte Esterase LARGE NEG Urine WBC (Auto) >30 0-5 /hpf Urine RBC (Auto) 10-30 0-4 /hpf Urine Hyaline Casts (Auto) 0 0-5 /lpf Urine Epithelial Cells (Auto) 0-5 0-5 /lpf Urine Bacteria (Auto) 4+ NEG White Blood Count 7.00 4.8-10.8 K/uL Red Blood Count 3.99 4.2-5.4 M/uL Hemoglobin 12.0 12.0-16.0 g/dL Hematocrit 35.6 37-47 % Mean Corpuscular Volume 89.2 80-100 fL Mean Corpuscular Hemoglobin 30.1 25-34 pg Mean Corpuscular Hemoglobin Concent 33.7 32-36 g/dl RDW Standard Deviation 44.9 36.4-46.3 fL RDW Coefficient of Variation 13.5 11.5-14.5 % Platelet Count 198 130-400 K/uL Mean Platelet Volume 10.0 7.4-10.4 fL Prothrombin Time 12.3 9.0-12.0 SECONDS Prothromb Time International Ratio 1.1 0.9-1.1 Sodium Level 140 136-145 mmol/L Potassium Level 3.6 3.5-5.1 mmol/L Chloride Level 109 98-107 mmol/L Carbon Dioxide Level 25 21-32 mmol/L Anion Gap 6.0 3-11 mmol/L Blood Urea Nitrogen 12 7-18 mg/dl Creatinine 0.63 0.60-1.20 mg/dl Est Creatinine Clear Calc Drug Dose 84.1 ml/min Estimated GFR () 100.3 Estimated GFR (Non- 86.5 BUN/Creatinine Ratio 19.0 10-20 Random Glucose 114 70-99 mg/dl Calcium Level 9.4 8.5-10.1 mg/dl Microbiology Results 03/26/17 Urine Culture - Preliminary, Resulted Gram Negative Bacilli
[2017-03-27] MEDS: CEFTRIAXONE SOD INJ 1 GM in DEXTROSE 5% ADD-VANTAGE 50ML 50 ML IV SCH (12:16)
[2017-03-27] MEDS: COLCHICINE 0.6 MG TAB PO SCH (20:27)
[2017-03-27] MEDS: SERTRALINE HCL 100 MG TAB PO SCH (20:27)
[2017-03-27] MEDS: METOPROLOL TARTRATE 25 MG TAB PO SCH (20:27)
[2017-03-27] MEDS: FLUTICASONE PROPIONATE NA SPR 16 GM BTL NAE SCH (21:31)
[2017-03-28 04:11] VITALS: BP 135/83; PULSE 73; TEMP 36.8; O2SAT 96
[2017-03-28] MEDS: LEVOTHYROXINE 100 MCG TAB PO SCH (06:36)
[2017-03-28 07:25] LABS: BUN/CREATININE RATIO 24.8 (10-20); CALCIUM 9.5 mg/dl (8.5-10.1); CREATININE 0.66 mg/dl (0.60-1.20); MAGNESIUM 2.2 mg/dl (1.8-2.4); POTASSIUM 3.8 mmol/L (3.5-5.1)
[2017-03-28 08:03] VITALS: BP 140/63; PULSE 79; TEMP 36.8; O2SAT 96
[2017-03-28] MEDS: CEFTRIAXONE SOD INJ 1 GM in DEXTROSE 5% ADD-VANTAGE 50ML 50 ML IV SCH (08:39)
[2017-03-28] MEDS: ROSUVASTATIN CALCIUM 5 MG TAB PO SCH (08:40)
[2017-03-28] MEDS: RANITIDINE HCL 150 MG TAB PO SCH (08:40)
[2017-03-28] MEDS: TIOTROPIUM BROMIDE 28 PUFF/4 GM INH INH SCH (08:40)
[2017-03-28] MEDS: METOPROLOL TARTRATE 25 MG TAB PO SCH (08:40)
[2017-03-28] MEDS: ASPIRIN 81 MG ECTAB PO SCH (08:40)
--- NOTE | 2017-03-28 09:44 | Cardiology Follow-Up ---
Subjective General Date of Service: Mar 28, 2017. 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 She is accompanied by her daughter today. She denies any chest discomfort. Denies shortness of breath. She has tolerated transition from sotalol to metoprolol without any wheezing. Telemetry reveals paced ventricular rhythm, with suspected underlying atrial fibrillation based on her most recent EKG and pacemaker interpretation. Since I had seen her yesterday, her urine culture has yielded Klebsiella, she has received IV ceftriaxone. She denies dysuria present. Allergies Coded Allergies: Iodinated Diagnostic Agents (Verified Allergy, Severe, ANAPHYLAXIS, ) Shellfish (Verified Allergy, Severe, "Seafood" -- ANAPHYLAXIS, 02/21/17) Erythromycin (Verified Allergy, Intermediate, RASH, 03/25/17) Penicillins (Verified Allergy, Intermediate, RASH, 02/21/17) FROM CHILDHOOD Simvastatin (Verified Allergy, Intermediate, RASH, 03/25/17) Celecoxib (Verified Allergy, Mild, RASH, 03/25/17) Nystatin (Verified Allergy, Mild, RASH, 03/25/17) Rivaroxaban (Verified Adverse Reaction, Severe, 0, 03/25/17) possivble hemorrhagic pericardial effusion Moxifloxacin (Verified Adverse Reaction, Intermediate, HALUCINATIONS, 03/25) Fish (Verified Adverse Reaction, Mild, GI SYMPTOMS, 02/21/17) Social History Smoking Status: Never Smoker Hx Tobacco Use In Past Year?: No Hx Alcohol Use - Type And Amou: No Hx Substance Use - Type And Am: No Problem List Medical Problems: (1) Atrial fibrillation with RVR Status: Acute (2) Atrial fibrillation with RVR Status: Acute (3) Bilateral pleural effusion Status: Acute (4) Elevated INR Status: Acute (5) Elevated troponin Status: Acute (6) Hx of gastroesophageal reflux (GERD) Status: Acute (7) Left sided chest pain Status: Acute (8) PAC (premature atrial contraction) Status: Acute (9) Pericardial effusion Status: Acute (10) Precordial chest pain Status: Acute (11) Precordial chest pain Status: Acute (12) Substernal chest pain Status: Acute Social History Problems: (1) Status post placement of cardiac pacemaker Status: Acute Physical Exam Vital Signs Last Vital Signs Documentation Date Time Temp Pulse Resp B/P (MAP) Pulse Ox O2 Delivery O2 Flow Rate FiO2 03/28/17 08:03 36.8 79 18 140/63 (88) 96 03/28/17 04:11 Room Air Physical Exam Constitutional: Level of Distress: NAD Head: normocephalic ENMT: normal ENT inspection Neck: supple Lungs: Auscultation: no wheezing, no rales/crackles, no rhonchi Cardiovascular: Heart Auscultation: RRR, no murmurs, no rubs Extremities: no edema Neurologic: Gait & Station: pertinent finding (no focal neurologic deficits) Assessment and Plan Assessment and Plan Impression: 76-year-old female 1. Recurrent pericarditis with mild increase in pericardial fluid and repeat echocardiogram performed 03/25/17 compared to 03/18/17 2. Coagulopathy having recently started anticoagulation with Coumadin 2.5 mg daily, INR greater than 4 on admission, normalized after receiving vitamin K 3. Paroxysmal, currently suspected persistent atrial fibrillation status post AV junction ablation and permanent pacemaker implantation. Patient remains on sotalol as despite her AV junction ablation, symptomatic standpoint the sotalol was maintained Ben to hopefully maintain sinus rhythm and improve AV synchrony 4. Compensated diastolic heart failure 5. History of chronic lung disease, bronchiectasis, stable 6. Klebsiella UTI Plan: From my standpoint, she is stable for discharge with the following medication plan: Aspirin 81 mg by mouth daily for stroke prophylaxis. Metoprolol 25 mg by mouth twice a day. Sotalol has been discontinued. Agree with treatment of UTI, given sotalol treatment (just discontinued) would avoid antibiotics that prolong the QT interval such as quinolones. Colchicine 0.6 mg by mouth daily at bedtime Prednisone taper over several weeks Prednisone 20 mg daily 4 more days Prednisone 15 mg daily 5 days Prednisone 10 mg daily 5 days Prednisone 5 mg daily 5 days Prednisone 2.5 mg daily 5 days Prednisone 2.5 mg every other day 3 doses. She is to remain on ranitidine for GI prophylaxis. She is to remain off anticoagulation for at least the next 4 weeks (and perhaps longer) Repeat outpt echo and follow up visit with Dr Gonzalez within next 2-4 weeks, and patient [facility] scheduling has already contacted patient to schedule visits. Patient is ambulatory. She has not been on arm clotted DVT prophylaxis due to concern of thrombus formation within the pericardial effusion, concern for hemorrhagic component of pericardial effusion and therefore pharmacologic DVT prophylaxis was withheld for concerns that it would worsen this condition. Tyrell Chau, Laboratory Results Last 24 Hours Test 03/28/17 06:10 Sodium Level 142 mmol/L Potassium Level 3.8 mmol/L Chloride Level 110 mmol/L Carbon Dioxide Level 26 mmol/L Anion Gap 6.0 mmol/L Blood Urea Nitrogen 16 mg/dl Creatinine 0.66 mg/dl Est Creatinine Clear Calc Drug Dose 81.1 ml/min Estimated GFR () 98.8 Estimated GFR (Non- 85.2 BUN/Creatinine Ratio 24.8 Random Glucose 83 mg/dl Calcium Level 9.5 mg/dl Magnesium Level 2.2 mg/dl
--- NOTE | 2017-03-28 11:11 | Progress Note ---
Internal Med Progress Note Date of Service: Mar 28, 2017. Provider Documentation: SUBJECTIVE: Seen and examined at bedside Feels better today Denies CP, , dizziness Denies dysuria, urgency OBJECTIVE: Vital Signs-as noted below Physical Exam: General Appearance:Moderately built and nourished, no apparent distress Head: normocephalic, Atraumatic Eyes: normal inspection, EOMI, PERRL Neck: supple, Trachea midline Respiratory/Chest: Normal breath sounds, CTA Cardiovascular: S1, S2, No murmur Abdomen/GI:Soft, Non tender, Bowel sounds present Extremities/Musculoskelatal:normal inspection, no edema Neurologic/Psych:AAOX3, grossly no focal neurological deficits Skin: normal color, warm Lab data as noted below. ASSESSMENT & PLAN: RECURRENT PERICARDITIS / PERICARDIAL EFFUSION Previously attributed to spontaneous hemopericardium while taking rivaroxaban. ECHO on 03/25/17 as Outpatient showed moderate pericardial effusion without tamponade. Continue colchicine, Prednisone taper Patient refused Naproxen as was previously informed to avoid NSAIDs Appreciate cardiology Input Plan to hold coumadin for next 4 weeks and get repeat ECHO with Dr. Gonzalez as outpatient Will taper Prednisone over several weeks as per cardiology recommendations UTI: Outpatient Urine culture grew Klebsiella Pneumonia, pansensitive Completed 7 days of Macrobid recently Repeat Urine culture: Klebsiella Pneumonia: Macrobid resistant Rocephin Day #2 ELEVATED INR INR 4.6 on admission>>>>1.1 S/P vitamin K 10 mg IV Resolved PAROXYSMAL ATRIAL FIBRILLATION S/P AV ablation + pacemaker implantation. Pacemaker Interrogated yesterday sotalol was discontinued and transitioned Metoprolol per cardiology recommendations warfarin held for atleast 4 weeks for now HYPOTHYROIDISM Continue levothyroxine. DYSLIPIDEMIA Continue rosuvastatin. LOOSE STOOLS Probably due to colchicine. Recent course of antibiotics for UTI. stool for C diff pending Patient denies having diarrhea since hospitalization VTE Px warfarin held due to pericardial effusion. SCD's. Ambulate. CODE STATUS: Full code DISPOSITION Plan to discharge home today Follow up with Dr. Allan for Primary Care on 04/01/17 at 9:40am Follow up with Cariology follow-up with Dr. Gonzalez on Apr 16 at 2:45pm with ECHO at 1:45pm Your Sotolol was discontinued and you were started on Metoprolol Do not take coumadin until cleared by your tipple repairer for further recommendations Complete the antibiotic course as prescribed Complete the prednisone taper course as recommended Prednisone 20 mg daily 4 more days Prednisone 15 mg daily 5 days Prednisone 10 mg daily 5 days Prednisone 5 mg daily 5 days Prednisone 2.5 mg daily 5 days Prednisone 2.5 mg every other day 3 doses. Seek immediate medical attention if your symptoms reoccur or worsen Vital Signs: Date Time Temp Pulse Resp B/P (MAP) Pulse Ox O2 Delivery O2 Flow Rate FiO2 03/28/17 08:03 36.8 79 18 140/63 (88) 96 03/28/17 04:11 36.8 73 17 135/83 (100) 96 Room Air 03/28/17 04:00 Room Air 03/27/17 23:59 96 Room Air 03/27/17 23:10 36.4 70 20 139/85 (103) 95 Room Air 03/27/17 20:00 95 Room Air 03/27/17 19:14 36.7 71 18 126/77 (93) 94 Room Air 03/27/17 16:00 93 Room Air 03/27/17 15:01 36.7 71 18 121/77 (92) 93 Room Air 03/27/17 12:00 Room Air 03/27/17 11:40 36.8 70 18 139/84 (102) 96 Lab Results: Results Past 24 Hours Test 03/28/17 06:10 Range/Units Sodium Level 142 136-145 mmol/L Potassium Level 3.8 3.5-5.1 mmol/L Chloride Level 110 98-107 mmol/L Carbon Dioxide Level 26 21-32 mmol/L Anion Gap 6.0 3-11 mmol/L Blood Urea Nitrogen 16 7-18 mg/dl Creatinine 0.66 0.60-1.20 mg/dl Est Creatinine Clear Calc Drug Dose 81.1 ml/min Estimated GFR () 98.8 Estimated GFR (Non- 85.2 BUN/Creatinine Ratio 24.8 10-20 Random Glucose 83 70-99 mg/dl Calcium Level 9.5 8.5-10.1 mg/dl Magnesium Level 2.2 1.8-2.4 mg/dl
[2017-03-28 11:18] VITALS: BP 127/77; PULSE 70; TEMP 36.8; O2SAT 95
[2017-03-28] MEDS ORDERED: PRED-301 PO (11:23)
[2017-03-28] MEDS ORDERED: ASPEC81 PO (11:23)
[2017-03-28] MEDS ORDERED: PRED10TA PO (11:23)
[2017-03-28] MEDS ORDERED: CEFD1CAP14 PO (11:23)
[2017-03-28] MEDS ORDERED: LPR25 PO (11:23)
--- NOTE | 2017-03-28 11:29 | Discharge Summary ---
Discharge Summary Date of Service Mar 28, 2017. Discharge Summary Admission Date: Mar 25, 2017 at 16:51 Discharge Date: Mar 28, 2017 Discharge Disposition: Home Principal Diagnosis: Pericardial Effusion, UTI Procedures: CXR: 1. Bibasilar linear densities persist and favor atelectasis or scarring. A pneumonia could also have a similar appearance. 2. Stable borderline enlargement of the cardiac silhouette. Consultations: Cardiology Pending Studies/Follow-Up: Follow up with Dr. Allan for Primary Care on 04/01/17 at 9:40am Follow up with Cariology follow-up with Dr. Gonzalez on Apr 16 at 2:45pm with ECHO at 1:45pm Your Sotolol was discontinued and you were started on Metoprolol, Aspirin Do not take coumadin until cleared by your hospital fellow for further recommendations Complete the antibiotic course as prescribed Complete the prednisone taper course as recommended Prednisone 20 mg daily 4 more days Prednisone 15 mg daily 5 days Prednisone 10 mg daily 5 days Prednisone 5 mg daily 5 days Prednisone 2.5 mg daily 5 days Prednisone 2.5 mg every other day 3 doses. Seek immediate medical attention if your symptoms reoccur or worsen Medication Reconciliation New Medications: Cefdinir (Omnicef) 300 Mg Cap 300 MG PO Q12H for 5 Days, #10 CAP Prednisone (Prednisone) 5 Mg Tab 5 MG PO UD for 26 Days, #15 TAB Take 20mg daily 4 days, then 15mg 5 days,10mg 5 days, 5mg 5 days, 2.5mg daily 5 days, 2.5mg every other day 3 doses to stop Prednisone Tab (Prednisone) 10 Mg Tab 10 MG PO UD for 26 Days, #18 TAB Take 20mg daily 4 days, then 15mg 5 days,10mg 5 days, 5mg 5 days, 2.5mg daily 5 days, 2.5mg every other day 3 doses to stop Aspirin (Aspirin EC Low Dose) 81 Mg Ectab 81 MG PO QAM for 30 Days, #30 Metoprolol Tartrate (Lopressor) 25 Mg Tab 25 MG PO BID for 30 Days, #60 TAB Continued Medications: Biotin (Biotin) 5 Mg Tab 5 MG PO 3XWK TAKES FRIDAY/FRIDAY/FRIDAY Calcium Citrate-Vitamin D (Calcium Citrate + D) 1 Tab Tab 1 TAB PO DAILY Colchicine (Colchicine) 0.6 Mg Tab 0.6 MG PO QPM, TAB Flaxseed (Linseed) (Flax Seed Oil) 1,000 Mg Cap 1000 MG PO 3XWK Fluticasone Propionate (Nasal) (Flonase Allergy Relief) 50 Mcg/Act Spr 1 SPRAY BERNICE QPM Levalbuterol (Levalbuterol HCl) 1.25 Mg/3 Ml Nebu 3 ML NEB Q8 PRN for Wheezing Levothyroxine Sodium (Levothyroxine Sodium) 100 Mcg Tab 100 MCG PO QAM Probiotic Product (Probiotic) 1 Tab Tab 1 TAB PO DAILY FRIDAY, FRIDAY, FRIDAY Ranitidine (Zantac) 150 Mg Tab 150 MG PO BID for 30 Days, #60 TAB 3 Refills Rosuvastatin Calcium (Crestor) 5 Mg Tab 5 MG PO 3XWK, TAB 5 Refills EVERY FRIDAY/FRIDAY/FRIDAY Sertraline (Zoloft) 100 Mg Tab 100 MG PO HS Tiotropium [place] (Spiriva Respimat) 2.5 Mcg/Act Spr 2 PUFF INH QAM, INHALER Discontinued Medications: Sotalol Hcl (Sotalol Hcl) 80 Mg Tab 80 MG PO BID, 3 Refills Warfarin Sod (Coumadin) 2.5 Mg Tab 2.5 MG PO DAILY, TAB Admission Information HPI (per Admitting provider): 76 YO female followed by Dr. Allan for Family Medicine. History of atrial fibrillation, pericarditis, and other problems noted below. Seen by EP at [facility] in November of this year. AV ablation + pacemaker implantation performed on 12/02/16. Readmitted to [facility] 12/03/16 with chest pain. Troponins slightly elevated. CPK's normal. Echo showed normal LV wall motion and function, no pericardial effusion. Presented to [facility] 02/21/17 with chest pain and hypotension. CT of chest demonstrated a pericardial effusion. Echo showed small pericardial effusion, no evidence of tamponade. [place] to have possible hemopericardium. Rivaroxaban was discontinued. Received prednisone and colchicine. Transferred to [facility] 02/22/17 for further evaluation. Did not require surgical intervention. Discharged from [facility] to home on 02/25/17. Readmitted to [facility] 02/27/17 with increasing SOB. Chest x-ray demonstrated bilateral pleural effusions. Exam consistent with fluid overload. Echo on 02/28/17 showed normal LV systolic function, small pericardial effusion without tamponade. Treated with diuretics with improvement. Discharged to home 03/02/17. She was seen in Cardiology Clinic on 03/18/17 and was doing well. Anticoagulation with warfarin 2.5 mg daily was started on 03/21/17 Presented to ED 03/24/17 with pleuritic chest pain. EKG and cardiac markers were OK. Discharged to home. Seen in Cardiology Clinic this morning. Exam revealed a pericardial friction rub. Echo demonstrated moderate pericardial effusion without tamponade. Referred to hospital for further evaluation and management. Persistent mid upper chest pain. Worse with inspiration and worse when lying on her side. No radiation. No SOB. No fever. Possible chills / sweats. No cough. No lower extremity edema. Some nausea, no emesis. . Physical Exam (per Admitting): General Appearance: WD/WN, no apparent distress Head: normocephalic, atraumatic Eyes: normal inspection, PERRL, EOMI, sclerae normal ENT: normal ENT inspection, hearing grossly normal, pharynx normal Neck: supple, no adenopathy, thyroid normal, trachea midline Respiratory/Chest: lungs clear, no respiratory distress, no accessory muscle use Cardiovascular: regular rate, rhythm, no edema, no gallop, + JVD, + friction rub Abdomen/GI: normal bowel sounds, non tender, soft, no organomegaly Extremities/Musculoskelatal: normal inspection, no calf tenderness Neurologic/Psych: civil design specialist II-XII nml as tested (PERRL, EOMI, no facial palsy, no dysarthria), no motor/sensory deficits (upper and lower motor strength intact ), alert, normal mood/affect, normal reflexes (patellar DTR's 2/2), oriented x 3 Skin: normal color, warm/dry, no rash Lymphatic: no adenopathy (cervical) Hospital Course RECURRENT PERICARDITIS / PERICARDIAL EFFUSION Previously attributed to spontaneous hemopericardium while taking rivaroxaban. ECHO on 03/25/17 as Outpatient showed moderate pericardial effusion without tamponade. Continue colchicine, Prednisone taper Patient refused Naproxen as was previously informed to avoid NSAIDs Appreciate cardiology Input Plan to hold coumadin for next 4 weeks and get repeat ECHO with Dr. Gonzalez as outpatient Will taper Prednisone over several weeks as per cardiology recommendations UTI: Outpatient Urine culture grew Klebsiella Pneumonia, pansensitive Completed 7 days of Macrobid recently Repeat Urine culture: Klebsiella Pneumonia: Macrobid resistant Rocephin Day #2 ELEVATED INR INR 4.6 on admission>>>>1.1 S/P vitamin K 10 mg IV Resolved PAROXYSMAL ATRIAL FIBRILLATION S/P AV ablation + pacemaker implantation. Pacemaker Interrogated yesterday sotalol was discontinued and transitioned Metoprolol per cardiology recommendations warfarin held for atleast 4 weeks for now HYPOTHYROIDISM Continue levothyroxine. DYSLIPIDEMIA Continue rosuvastatin. LOOSE STOOLS Probably due to colchicine. Recent course of antibiotics for UTI. stool for C diff pending Patient denies having diarrhea since hospitalization VTE Px warfarin held due to pericardial effusion. SCD's. Ambulate. CODE STATUS: Full code DISPOSITION Plan to discharge home today Follow up with Dr. Allan for Primary Care on 04/01/17 at 9:40am Follow up with Cariology follow-up with Dr. Gonzalez on Apr 16 at 2:45pm with ECHO at 1:45pm Your Sotolol was discontinued and you were started on Metoprolol Do not take coumadin until cleared by your hospital fellow for further recommendations Complete the antibiotic course as prescribed Complete the prednisone taper course as recommended Prednisone 20 mg daily 4 more days Prednisone 15 mg daily 5 days Prednisone 10 mg daily 5 days Prednisone 5 mg daily 5 days Prednisone 2.5 mg daily 5 days Prednisone 2.5 mg every other day 3 doses. Seek immediate medical attention if your symptoms reoccur or worsen Total time spent on discharge = 33 minutes This includes examination of the patient, discharge planning, medication reconciliation, and communication with other providers. Discharge Instructions Discharge Instructions Date of Service Mar 28, 2017. Admission Reason for Admission: Pericardial Effusion Discharge Discharge Diagnosis / Problem: Pericardial Effusion, UTI Discharge Goals Goal(s): Decrease discomfort, Improve function Activity Recommendations Activity Limitations: resume your previous activity Exercise/Sports Limitations: as tolerated . Instructions / Follow-Up Instructions / Follow-Up Follow up with Dr. Allan for Primary Care on 04/01/17 at 9:40am Follow up with Cariology follow-up with Dr. Gonzalez on Apr 16 at 2:45pm with ECHO at 1:45pm Your Sotolol was discontinued and you were started on Metoprolol, Aspirin Do not take coumadin until cleared by your hospital fellow for further recommendations Complete the antibiotic course as prescribed Complete the prednisone taper course as recommended Prednisone 20 mg daily 4 more days Prednisone 15 mg daily 5 days Prednisone 10 mg daily 5 days Prednisone 5 mg daily 5 days Prednisone 2.5 mg daily 5 days Prednisone 2.5 mg every other day 3 doses. Seek immediate medical attention if your symptoms reoccur or worsen Current Hospital Diet Patient's current hospital diet: AHA Diet (Heart Healthy) Discharge Diet Recommended Diet: AHA Diet (Heart Healthy) Pending Studies Studies pending at discharge: no Laboratory Results Hemoglobin A1c Test 02/22/17 06:56 Range/Units Estimated Average Glucose 114 mg/dl Hemoglobin A1c 5.6 4.5-5.6 % Medical Emergencies . Who to Call and When: Medical Emergencies: If at any time you feel your situation is an emergency, please call 911 immediately. . Non-Emergent Contact Non-Emergency issues call your: Primary Care Provider, Change Coordinator Call Non-Emergent contact if: you have a fever, your pain is not controlled, your pain is worsening, your pain is unusual for you, your pain is concerning you, you have any medication questions Seek immediate medical attention if your symptoms reoccur or worsen . . "Provider Documentation" section prepared by Haroldo Lopez. . VTE Core Measure Inpt VTE Proph given/why not?: SCD's
[2017-03-28 11:51] VITALS: BP 127/77; PULSE 70; TEMP 36.8; O2SAT 95
== END 2017-03-28 12:30 | disposition home health service (06) | DRG 315 ==
LOC: C.EDB 15:30 → C.2T 16:51 → ENRESERV 17:26 → C.2T 03-27 01:58
PROVIDERS: ADMIT Hospitalist; ATTEND Internal Medicine
DX: I31.3 Pericardial effusion (noninflammatory) (principal); N39.0 Urinary tract infection, site not specified; K21.9 Gastro-esophageal reflux disease without esophagitis; E78.5 Hyperlipidemia, unspecified; E03.9 Hypothyroidism, unspecified; M81.0 Age-related osteoporosis without current pathological fracture; I48.0 Paroxysmal atrial fibrillation; A49.8 Other bacterial infections of unspecified site; R19.7 Diarrhea, unspecified; Z98.51 Tubal ligation status; Z90.49 Acquired absence of other specified parts of digestive tract

== ENCOUNTER 2017-04-02 23:41 | Observation (INO) | payer OTHER ==
[~2017-04-02] VITALS: Ht 172.7 cm; Wt 81.8 kg
[~2017-04-02 23:41] MED LIST changes: +ASPEC81 PO; +CEFD1CAP14 PO; -CLC6 PO; +COLC0.6T54 PO; -LEVA45AE PO; +LPR25 PO; -NITR-5 PO; -POTA10CA28 PO; +PRED-301 PO; +PRED10TA PO; -SOTA80TA PO; -WARF2.5T8 PO
[2017-04-03] VITALS (10 sets, daily range): BP systolic 107–143; BP diastolic 66–92; PULSE 69–83; TEMP 36.4–36.8; O2SAT 94–96; Ht 172.7 cm; Wt 81.8 kg
--- NOTE | 2017-04-03 00:31 | EMERGENCY ROOM VISIT NOTE ---
History Report prepared by Cecily: Kenya Etienne Under the Supervision of: Dr. Jenna Nolan D.O. First contact with patient: 00:13 Chief Complaint: CARDIAC ASSESSMENT Stated Complaint: PERICARDIAL EFFUSION,PAIN IN CHEST,BACK JAW History of Present Illness The patient is a 76 year old female who presents to the Emergency Room with complaints of a cardiac assessment today. The patient states that she is taking 15 mg of prednisone per day and colchicine for a recent pericardial effusion. She describes feeling well over the past couple of days. The patient reports having chest pain that began on her right side but then radiated to her right back and right jaw. She also reports having pressure in her back. She states that she feels light-headed, but denies shortness of breath, nausea, vomiting, and diarrhea. She states that she takes 81 mg of aspirin daily. The patient denies a history of a heart attack, but reports having a cardiac catheterization done. Source of History: patient Onset: today Position: other (global) Quality: other (cardiac assessment ) Associated Symptoms: + chest pain, + back pain, No SOB, No nausea, No vomiting, No diarrhea Note: additional symptoms: jaw pain and light-headedness Review of Systems See HPI for pertinent positives & negatives. A total of 10 systems reviewed and were otherwise negative. Past Medical & Surgical Medical Problems: (1) Bronchiectasis (2) Chest pain (3) GERD (gastroesophageal reflux disease) (4) History of pancreatitis (5) History of pericarditis (6) HLD (hyperlipidemia) (7) Hypothyroidism (8) Osteoarthritis (9) Osteoporosis (10) Paroxysmal atrial fibrillation Surgical Problems: (1) H/O arthroscopic knee surgery (2) H/O partial thyroidectomy (3) History of appendectomy (4) History of sinus surgery (5) History of tonsillectomy (6) History of tubal ligation (7) Hx of cholecystectomy (8) Status post atrioventricular brayan ablation (9) Status post cardiac pacemaker procedure Family History Patient reports no known family medical history. Social History Smoking Status: Never Smoker Alcohol Use: occasionally Drug Use: none Marital Status: Housing Status: lives with family Occupation Status: retired Current/Historical Medications Scheduled Aspirin (Aspirin Ec), 81 MG PO DAILY Biotin (Biotin), 5 MG PO 3XWK Calcium Citrate-Vitamin D (Calcium Citrate + D), 1 TAB PO DAILY Colchicine (Colchicine), 0.6 MG PO QPM Flaxseed (Linseed) (Flax Seed Oil), 1,000 MG PO 3XWK Fluticasone Propionate (Nasal) (Flonase Allergy Relief), 1 SPRAY BERNICE QPM Levothyroxine Sodium (Levothyroxine Sodium), 100 MCG PO QAM Metoprolol Tartrate (Lopressor) (Lopressor), 25 MG PO BID Prednisone (Prednisone), 5 MG PO UD Prednisone Tab (Prednisone), 10 MG PO UD Probiotic Product (Probiotic), 1 TAB PO DAILY Ranitidine (Zantac), 150 MG PO BID Rosuvastatin Calcium (Crestor), 5 MG PO 3XWK Sertraline (Zoloft), 100 MG PO HS Tiotropium [place] (Spiriva Respimat), 2 PUFF INH QAM Scheduled PRN Levalbuterol (Levalbuterol HCl), 3 ML NEB Q8 PRN for Wheezing Allergies Coded Allergies: Iodinated Diagnostic Agents (Verified Allergy, Severe, ANAPHYLAXIS, ) Shellfish (Verified Allergy, Severe, "Seafood" -- ANAPHYLAXIS, 02/21/17) Erythromycin (Verified Allergy, Intermediate, RASH, 03/25/17) Simvastatin (Verified Allergy, Intermediate, RASH, 03/25/17) Celecoxib (Verified Allergy, Mild, RASH, 03/25/17) Nystatin (Verified Allergy, Mild, RASH, 03/25/17) Rivaroxaban (Verified Adverse Reaction, Severe, 0, 03/25/17) possivble hemorrhagic pericardial effusion Moxifloxacin (Verified Adverse Reaction, Intermediate, HALUCINATIONS, 03/25) Fish (Verified Adverse Reaction, Mild, GI SYMPTOMS, 02/21/17) Physical Exam Vital Signs Date Time Temp Pulse Resp B/P (MAP) Pulse Ox O2 Delivery O2 Flow Rate FiO2 04/03/17 02:02 70 21 129/82 96 04/03/17 01:57 70 16 95 04/03/17 01:31 117/82 04/03/17 01:27 70 19 96 04/03/17 01:01 130/79 04/03/17 01:01 70 19 130/79 04/03/17 00:57 72 21 96 04/03/17 00:52 70 20 96 04/03/17 00:31 132/110 04/03/17 00:22 70 22 96 04/03/17 00:20 70 04/03/17 00:17 70 19 119/78 91 04/03/17 00:14 96 Room Air 04/02/17 23:50 36.6 72 20 126/83 97 Room Air Physical Exam HEENT: Head - normocephalic and atraumatic Pupils are equal, round, and reactive to light. Extraocular eye muscles are intact, and sclera are anicteric. Nose - moist nasal mucosa without discharge. Mouth - moist buccal mucosa. Oropharynx is nonerythematous and there is no tonsillar exudate or edema noted. Neck: Supple; no JVD, nuchal rigidity, cervical lymphadenopathy, or auscultated bruits. Heart: Regular rate and rhythm. There is a normal S1 and S2 with no murmurs, clicks, or gallops appreciated. No pericardial rub. Lungs: Clear to auscultation bilaterally with no wheezes, rales, or rhonchi. Abdomen: Soft, completely nontender, nondistended, with good bowel sounds. There are no palpable pulsatile masses or hepatosplenomegaly. There is no guarding, rigidity, or rebound noted. Extremities: No evidence of cyanosis or clubbing. Trace pedal edema. There are easily palpable peripheral pulses. Skin: warm and dry with good turgor and no rashes. Pale. Medical Decision & Procedures ER Provider Diagnostic Interpretation: Chest X-ray 1 view: Cardiac silhouette appears smaller than portable chest X-ray from 03/25. No obvious pleural effusion. Cardiac pacemaker in place. Laboratory Results 04/03/17 00:05 Red Blood Count 4.60, Mean Corpuscular Volume 90.7, Mean Corpuscular Hemoglobin 29.8, Mean Corpuscular Hemoglobin Concent 32.9, Mean Platelet Volume 10.2, Neutrophils (%) (Auto) 76.1, Lymphocytes (%) (Auto) 16.6, Monocytes (%) (Auto) 6.1, Eosinophils (%) (Auto) 0.2, Basophils (%) (Auto) 0.3, Neutrophils # (Auto) 8.05, Lymphocytes # (Auto) 1.76, Monocytes # (Auto) 0.65, Eosinophils # (Auto) 0.02, Basophils # (Auto) 0.03 04/03/17 00:05 Test 04/03/17 00:05 White Blood Count 10.58 K/uL (4.8-10.8) Red Blood Count 4.60 M/uL (4.2-5.4) Hemoglobin 13.7 g/dL (12.0-16.0) Hematocrit 41.7 % (37-47) Mean Corpuscular Volume 90.7 fL (80-100) Mean Corpuscular Hemoglobin 29.8 pg (25-34) Mean Corpuscular Hemoglobin Concent 32.9 g/dl (32-36) Platelet Count 275 K/uL (130-400) Mean Platelet Volume 10.2 fL (7.4-10.4) Neutrophils (%) (Auto) 76.1 % Lymphocytes (%) (Auto) 16.6 % Monocytes (%) (Auto) 6.1 % Eosinophils (%) (Auto) 0.2 % Basophils (%) (Auto) 0.3 % Neutrophils # (Auto) 8.05 K/uL (1.4-6.5) Lymphocytes # (Auto) 1.76 K/uL (1.2-3.4) Monocytes # (Auto) 0.65 K/uL (0.11-0.59) Eosinophils # (Auto) 0.02 K/uL (0-0.5) Basophils # (Auto) 0.03 K/uL (0-0.2) RDW Standard Deviation 46.9 fL (36.4-46.3) RDW Coefficient of Variation 14.3 % (11.5-14.5) Immature Granulocyte % (Auto) 0.7 % Immature Granulocyte # (Auto) 0.07 K/uL (0.00-0.02) Erythrocyte Sedimentation Rate 6 mm/hr (0-21) Prothrombin Time 11.8 SECONDS (9.0-12.0) Prothromb Time International Ratio 1.1 (0.9-1.1) Activated Partial Thromboplast Time 21.9 SECONDS (21.0-31.0) Partial Thromboplastin Ratio 0.8 Anion Gap 7.0 mmol/L (3-11) Est Creatinine Clear Calc Drug Dose 60.2 ml/min Estimated GFR () 74.5 Estimated GFR (Non- 64.3 BUN/Creatinine Ratio 21.6 (10-20) Calcium Level 10.0 mg/dl (8.5-10.1) Total Bilirubin 0.3 mg/dl (0.2-1) Aspartate Amino Transf (AST/SGOT) 24 U/L (15-37) Alanine Aminotransferase (ALT/SGPT) 36 U/L (12-78) Alkaline Phosphatase 66 U/L (45-117) Total Creatine Kinase 40 U/L (26-192) Creatine Kinase MB 1.5 ng/ml (0.5-3.6) Creatine Kinase MB Ratio 3.8 (0-3.0) C-Reactive Protein < 0.29 mg/dl (0-0.29) Total Protein 7.2 gm/dl (6.4-8.2) Albumin 3.7 gm/dl (3.4-5.0) Globulin 3.5 gm/dl (2.5-4.0) Albumin/Globulin Ratio 1.1 (0.9-2) Laboratory results per my review. ECG Indication: chest pain Rate (beats per minute): 82 Rhythm: other (ventricular-paced ) Findings: no acute ischemic change, no ectopy ED Course 0020: Past medical records reviewed. The patient was evaluated in room A9B. A complete history and physical exam was performed. Laboratory studies were drawn as above. A twelve-lead EKG was obtained as described above. The patient had a chest x-ray as described above. In reviewing the records, the patient had an echocardiogram done on 03/25/17 which showed moderate pericardial effusion. She continued a prednisone taper and colchicine. The patient was discharged on 03/28 to continue the prednisone and colchicine. 0200: I checked on the patient and she reports that she is still having waxing and waning chest pain. When she does have the pain, she states that it lasts for 20 minutes. 0225: Upon reevaluation, I discussed findings and results with the patient. She verbalized agreement of the treatment plan. [facility] The patient will be evaluated for further management and care. Medical Decision The patient is a 76 year old female who presents to the ED with chest pain. Differential diagnosis includes recurrent pericardial effusion, GERD, recurrent pleural effusion, pleurisy, and angina. Labs today: Normal white count Normal H and H Glucose 130 BUN 19 Creatinine 0.8 Negative troponin and LFTs Normal coags This is a 76-year-old female patient who presents to the emergency department with recurrent chest pain. The patient has had a complicated recent past medical history with pericardial effusion. She was discharged from the hospital recently on a prednisone taper and colchicine and seemed to be doing well until tonight when she developed right-sided chest pain that seemed to radiate through to her back and into her right jaw. The pain became ill last constant lock here in the emergency department but was still present intermittently. She has negative cardiac enzymes and EKG that appears unchanged. However, I believe the patient will require an echocardiogram to further evaluate the size of the pericardial effusion. I discussed the case with the [facility] Hospitalist and he will evaluated for further management. Medication Reconcilliation Current Medication List: was personally reviewed by me Blood Pressure Screening Patient's blood pressure: Normal blood pressure Consults Time Called: 0200 Consulting Physician: Dr. Avery Returned Call: 0225 Discussed the patient's case. The patient will be evaluated for further management. Impression Primary Impression: Right-sided chest pain Additional Impression: history of pericardial effusion Scribe Attestation The scribe's documentation has been prepared under my direction and personally reviewed by me in its entirety. I confirm that the note above accurately reflects all work, treatment, procedures, and medical decision making performed by me. Departure Information Dispostion Being Evaluated By Hospitalist Referrals Trang Allan D.O. (PCP) Patient Instructions My [facility] Problem Qualifiers
[2017-04-03 00:59] LABS: BASO % 0.3 %; BASO ABS # 0.03 K/uL (0-0.2); COMPLETE YES; EOS % 0.2 %; HEMATOCRIT 41.7 % (37-47); IG% 0.7 %; LYMPH % 16.6 %; LYMPH ABS # 1.76 K/uL (1.2-3.4); MEAN CELL VOLUME 90.7 fL (80-100); MEAN CORPUSCULAR HEMOGLOBIN 29.8 pg (25-34); MEAN CORPUSCULAR HGB CONC 32.9 g/dl (32-36); MEAN PLATELET VOLUME 10.2 fL (7.4-10.4); MONO % 6.1 %; NEUT % 76.1 %; PLATELET COUNT 275 K/uL (130-400); WHITE BLOOD COUNT 10.58 K/uL (4.8-10.8)
[2017-04-03 01:14] LABS: INR 1.1 (0.9-1.1); PARTIAL THROMBOPLASTIN RATIO 0.8; PROTHROMBIN TIME (PATIENT) 11.8 SECONDS (9.0-12.0)
[2017-04-03 01:18] LABS: ALT/SGPT 36 U/L (12-78); BLOOD UREA NITROGEN 19 mg/dl (7-18); BUN/CREATININE RATIO 21.6 (10-20); CARBON DIOXIDE 26 mmol/L (21-32); CHLORIDE 106 mmol/L (98-107); CREATININE 0.87 mg/dl (0.60-1.20); GLUCOSE 130 mg/dl (70-99); POTASSIUM 4.2 mmol/L (3.5-5.1); SODIUM 139 mmol/L (136-145)
[2017-04-03 01:23] LABS: ALB/GLOB RATIO 1.1 (0.9-2); ALKALINE PHOSPHATASE 66 U/L (45-117); AST/SGOT 24 U/L (15-37); CKMB/CK RATIO 3.8 (0-3.0)
[2017-04-03] MEDS ORDERED: METO25TA56 PO (01:47)
[2017-04-03] MEDS ORDERED: ASPI81TA28 PO (01:51)
--- NOTE | 2017-04-03 02:25 | History and Physical ---
History & Physical Date & Time of Service: Apr 03, 2017 at 02:25 . Chief Complaint: chest pain . Primary Care Physician: Trang Allan D.O. . History of Present Illness Source: patient, clinic records, hospital records 76 YO female followed by Dr. Allan for Family Medicine and Dr. Gonzalez for Cardiology. History of atrial fibrillation, pericarditis, and other problems noted below. [place] [facility] [place]. AV ablation + pacemaker implantation performed on 12/02/16. Readmitted to [facility] 12/03/16 with chest pain. Troponins slightly elevated. CPK's normal. Echo showed normal LV wall motion and function, no pericardial effusion. Presented to [facility] 02/21/17 with chest pain and hypotension. CT of chest demonstrated a pericardial effusion. Echo showed small pericardial effusion, no evidence of tamponade. [place] to have possible hemopericardium. Rivaroxaban was discontinued. Received prednisone and colchicine. Transferred to [facility] 02/22/17 for further evaluation. Did not require surgical intervention. [place] [facility] [place] 02/25/17. Readmitted to [facility] 02/27/17 with increasing SOB. Chest x-ray demonstrated bilateral pleural effusions. Exam consistent with fluid overload. Echo on 02/28/17 showed normal LV systolic function, small pericardial effusion without tamponade. Treated with diuretics with improvement. Discharged to home 03/02/17. She was seen in Cardiology Clinic on 03/18/17 and was doing well. Anticoagulation with warfarin 2.5 mg daily was started on 03/21/17 Presented to ED 03/24/17 with pleuritic chest pain. EKG and cardiac markers were OK. Discharged to home. Seen in Cardiology Clinic on 03/25. Found to have friction rub. Echo sowed moderate pericardial effusion without tamponade. Readmitted to [facility]. Colchicine was continued. Placed on steroids with improvement. Discharged 03/28/17 on colchicine 0.6 mg daily + prednisone taper. Doing well until this evening when she developed chest pain, different in nature that recent episodes of pericarditis. CP located in right anterolateral chest and radiated to her right jaw. Pain moderately severe, not pleuritic or exertional in nature. No associated diaphoresis, nausea, vomiting, fever, or cough. Did not try any medications for it. Had 2 episodes at home, each lasting for about 20 minutes. Came to ED for evaluation. Had another episode of similar right-sided chest pain that resolved spontaneously. Pain-free and comfortable at time of my assessment. . Past Medical/Surgical History Chronic Medical Problems: (1) Bronchiectasis Status: Chronic (2) GERD (gastroesophageal reflux disease) Status: Chronic (3) History of pancreatitis Status: Chronic (4) History of pericarditis Permanent Comment: November 2016. Suspected hemopericardium secondary to rivaroxaban. Status: Chronic (5) HLD (hyperlipidemia) Status: Chronic (6) Hypothyroidism Status: Chronic (7) Osteoarthritis Status: Chronic (8) Osteoporosis Status: Chronic (9) Paroxysmal atrial fibrillation Status: Chronic Surgical Problems: (1) H/O arthroscopic knee surgery Status: Chronic (2) H/O partial thyroidectomy Status: Chronic (3) History of appendectomy Status: Chronic (4) History of sinus surgery Status: Chronic (5) History of tonsillectomy Status: Chronic (6) History of tubal ligation Status: Chronic (7) Hx of cholecystectomy Status: Chronic (8) Status post atrioventricular brayan ablation Status: Chronic (9) Status post cardiac pacemaker procedure Status: Chronic . Family History Patient reports no known family medical history. Social History Smoking Status: Never Smoker Alcohol Use: occasionally Drug Use: none Marital Status: Occupational Status: retired Immunizations History of Influenza Vaccine: Yes History of Tetanus Vaccine?: Yes Tetanus Immunization Date: Sep 16, 2008 History of Pneumococcal: Yes Pneumococcal Date: Jan 29, 2012 Allergies Coded Allergies: Iodinated Diagnostic Agents (Verified Allergy, Severe, ANAPHYLAXIS, ) Shellfish (Verified Allergy, Severe, "Seafood" -- ANAPHYLAXIS, 02/21/17) Erythromycin (Verified Allergy, Intermediate, RASH, 03/25/17) Simvastatin (Verified Allergy, Intermediate, RASH, 03/25/17) Celecoxib (Verified Allergy, Mild, RASH, 03/25/17) Nystatin (Verified Allergy, Mild, RASH, 03/25/17) Rivaroxaban (Verified Adverse Reaction, Severe, 0, 03/25/17) possivble hemorrhagic pericardial effusion Moxifloxacin (Verified Adverse Reaction, Intermediate, HALUCINATIONS, 03/25) Fish (Verified Adverse Reaction, Mild, GI SYMPTOMS, 02/21/17) Home Medications Scheduled Aspirin (Aspirin Ec), 81 MG PO DAILY Biotin (Biotin), 5 MG PO 3XWK Calcium Citrate-Vitamin D (Calcium Citrate + D), 1 TAB PO DAILY Colchicine (Colchicine), 0.6 MG PO QPM Flaxseed (Linseed) (Flax Seed Oil), 1,000 MG PO 3XWK Fluticasone Propionate (Nasal) (Flonase Allergy Relief), 1 SPRAY [place]ERN[place] QPM Levothyroxine Sodium (Levothyroxine Sodium), 100 MCG PO QAM Metoprolol Tartrate (Lopressor) (Lopressor), 25 MG PO BID Prednisone (Prednisone), 5 MG PO UD Prednisone Tab (Prednisone), 10 MG PO UD Probiotic Product (Probiotic), 1 TAB PO DAILY Ranitidine (Zantac), 150 MG PO BID Rosuvastatin Cal[place] (Crestor), 5 MG PO 3XWK Sertraline (Zoloft), 100 MG PO HS Tiotropium [place] (Spiriva Respimat), 2 PUFF INH QAM Scheduled PRN Levalbuterol (Levalbuterol HCl), 3 ML NEB Q8 PRN for Wheezing Review of Systems As noted above in HPI. . Physical Exam Vital Signs Date Time Temp Pulse Resp B/P (MAP) Pulse Ox O2 Delivery O2 Flow Rate FiO2 04/03/17 02:02 70 21 129/82 96 04/03/17 01:57 70 16 95 04/03/17 01:31 117/82 04/03/17 01:27 70 19 96 04/03/17 01:01 130/79 04/03/17 01:01 70 19 130/79 04/03/17 00:57 72 21 96 04/03/17 00:52 70 20 96 04/03/17 00:31 132/110 04/03/17 00:22 70 22 96 04/03/17 00:20 70 04/03/17 00:17 70 19 119/78 91 04/03/17 00:14 96 Room Air 04/02/17 23:50 36.6 72 20 126/83 97 Room Air General Appearance: WD/WN, no apparent distress Head: normocephalic, atraumatic Eyes: normal inspection, PERRL, EOMI, sclerae normal ENT: normal ENT inspection, hearing grossly normal, pharynx normal Neck: supple, no adenopathy, thyroid normal, no JVD, trachea midline Respiratory/Chest: lungs clear, no respiratory distress, no accessory muscle use Cardiovascular: regular rate, rhythm, no edema, no gallop, no JVD, no murmur, + pertinent finding (no pericardial friction rub appreciated) Abdomen/GI: normal bowel sounds, non tender, soft, no organomegaly, no pulsatile mass Extremities/Musculoskelatal: normal inspection, no calf tenderness, no pedal edema 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 (PERRL, EOMI, no facial palsy, no dysarthria), no motor/sensory deficits, alert, normal mood/affect, oriented x 3 Diagnostics Laboratory Results Results Past 24 Hours Test 04/03/17 00:05 04/03/17 02:23 Range/Units White Blood Count 10.58 4.8-10.8 K/uL Red Blood Count 4.60 4.2-5.4 M/uL Hemoglobin 13.7 12.0-16.0 g/dL Hematocrit 41.7 37-47 % Mean Corpuscular Volume 90.7 80-100 fL Mean Corpuscular Hemoglobin 29.8 25-34 pg Mean Corpuscular Hemoglobin Concent 32.9 32-36 g/dl Platelet Count 275 130-400 K/uL Mean Platelet Volume 10.2 7.4-10.4 fL Neutrophils (%) (Auto) 76.1 % Lymphocytes (%) (Auto) 16.6 % Monocytes (%) (Auto) 6.1 % Eosinophils (%) (Auto) 0.2 % Basophils (%) (Auto) 0.3 % Neutrophils # (Auto) 8.05 1.4-6.5 K/uL Lymphocytes # (Auto) 1.76 1.2-3.4 K/uL Monocytes # (Auto) 0.65 0.11-0.59 K/uL Eosinophils # (Auto) 0.02 0-0.5 K/uL Basophils # (Auto) 0.03 0-0.2 K/uL RDW Standard Deviation 46.9 36.4-46.3 fL RDW Coefficient of Variation 14.3 11.5-14.5 % Immature Granulocyte % (Auto) 0.7 % Immature Granulocyte # (Auto) 0.07 0.00-0.02 K/uL Prothrombin Time 11.8 9.0-12.0 SECONDS Prothromb Time International Ratio 1.1 0.9-1.1 Activated Partial Thromboplast Time 21.9 21.0-31.0 SECONDS Partial Thromboplastin Ratio 0.8 Sodium Level 139 136-145 mmol/L Potassium Level 4.2 3.5-5.1 mmol/L Chloride Level 106 98-107 mmol/L Carbon Dioxide Level 26 21-32 mmol/L Anion Gap 7.0 3-11 mmol/L Blood Urea Nitrogen 19 7-18 mg/dl Creatinine 0.87 0.60-1.20 mg/dl Est Creatinine Clear Calc Drug Dose 60.2 ml/min Estimated GFR () 74.5 Estimated GFR (Non- 64.3 BUN/Creatinine Ratio 21.6 10-20 Random Glucose 130 70-99 mg/dl Calcium Level 10.0 8.5-10.1 mg/dl Total Bilirubin 0.3 0.2-1 mg/dl Aspartate Amino Transf (AST/SGOT) 24 15-37 U/L Alanine Aminotransferase (ALT/SGPT) 36 12-78 U/L Alkaline Phosphatase 66 45-117 U/L Total Creatine Kinase 40 26-192 U/L Creatine Kinase MB 1.5 0.5-3.6 ng/ml Creatine Kinase MB Ratio 3.8 0-3.0 Troponin I < 0.015 0-0.045 ng/ml Total Protein 7.2 6.4-8.2 gm/dl Albumin 3.7 3.4-5.0 gm/dl Globulin 3.5 2.5-4.0 gm/dl Albumin/Globulin Ratio 1.1 0.9-2 Diagnostic Radiology Chest x-ray reviewed by the undersigned and demonstrated top-normal sized cardiac silhouette, dual chamber pacemaker, no infiltrates, effusions, CHF. . EKG EKG performed at 23:58 reviewed and demonstrated normal sinus rhythm at 82 / minute, ventricular paced beats, repolarization abnormalities. . Impression Assessment and Plan CHEST PAIN Doubt recurrent pericarditis, but will check repeat echo and ask Cardiology to see. Doubt acute coronary syndrome. Check serial troponins. Doubt pulmonary embolus, but reconsider if symptoms worsen. Doubt biliary tract disease. S/P cholecystectomy. LFT's normal. PERICARDITIS / PERICARDIAL EFFUSION Recent episodes of pericarditis as summarized in HPI. Chest pain tonight unlike previous symptoms. No pericardial friction rub appreciated. ESR 6. C-reactive protein < 0.29. Check f/u echo. Further management per Cardiology. PAROXYSMAL ATRIAL FIBRILLATION S/P AV ablation + pacemaker implantation. Continue sotalol. Anticoagulants have been stopped due to pericarditis. HYPOTHYROIDISM Continue levothyroxine. DYSLIPIDEMIA Continue rosuvastatin. VTE PROPHYLAXIS Stopped anticoagulants due to pericarditis with pericardial effusion. SCD's. Ambulate. RESUSCITATION STATUS Discussed with patient at time of last admission. She had a durable POA and she believes a living will as well. She would like resuscitation attempted in the event of a cardiopulmonary arrest if there is a reasonable chance of a meaningful recovery, but does not want prolonged extraordinary measures if prognosis is very poor. Therefore, code status = "Level 1" (full resuscitation). DISPOSITION Observation status on Telemetry Unit. Family Medicine follow-up with Dr. Allan. Cariology follow-up with Dr. Gonzalez. . VTE Prophylaxis Risk Level: Moderate Given or contraindicated: SCD's
[2017-04-03] MEDS ORDERED: HYDROmorphone INJ 0.5 MG/0.5 ML SYR IV PRN (02:30)
[2017-04-03] MEDS ORDERED: LEVALBUTEROL 1.25MG/3ML NEB INH PRN (02:45)
[2017-04-03 02:50] LABS: C-REACTIVE PROTEIN < 0.29 mg/dl (0-0.29)
[2017-04-03] MEDS ORDERED: IV FLUIDS COMPLETED PRN (04:30)
[2017-04-03] MEDS ORDERED: INFLUENZA ADMINISTRATION CHARGE ONE (06:00)
[2017-04-03] MEDS ORDERED: INFLUENZA VACCINE HIGH DOSE 65+ 0.5 ML SYR IM. ONE (06:00)
[2017-04-03] MEDS ORDERED: LEVOTHYROXINE 100 MCG TAB PO SCH (06:30)
--- NOTE | 2017-04-03 07:15 | DIAGNOSTIC IMAGING REPORT ---
SINGLE VIEW CHEST CLINICAL HISTORY: Cardiomegaly. Atypical chest pain. FINDINGS: An AP, portable, upright chest radiograph is compared to study dated 03/25/2017 and correlated with chest CT dated 02/21/2017. The examination is degraded by portable technique and patient rotation. A 2-lead cardiac pacemaker is unchanged in position and partially obscures the left mid chest. The heart is mildly enlarged and there is atherosclerotic calcification of the thoracic aorta. The pulmonary vasculature is noncongested. Linear densities are present both lung bases, and likely represent atelectasis versus scarring. The upper lungs appear clear. No large pleural effusion or pneumothorax is seen. The skeletal structures are osteopenic. The bony thorax is grossly intact. IMPRESSION: 1. Cardiomegaly and cardiac pacemaker. There is no radiographic evidence of congestive failure. 2. Linear airspace opacities at both lung bases likely represent scarring/atelectasis. There is no airspace consolidation typical for pneumonia or pleural effusion. Electronically signed by: Inderjit Sal M.D. 04/03/2017 7:14 AM Dictated Date/Time: 04/03/2017 7:13 AM
[2017-04-03] MEDS ORDERED: METOPROLOL TARTRATE 25 MG TAB PO SCH (09:00)
[2017-04-03] MEDS ORDERED: TIOTROPIUM BROMIDE 5 PUFF/90 MCG INH INH SCH (09:00)
[2017-04-03] MEDS ORDERED: RANITIDINE HCL 150 MG TAB PO SCH (09:00)
[2017-04-03] MEDS ORDERED: ASPIRIN 81 MG ECTAB PO SCH (09:00)
--- NOTE | 2017-04-03 09:09 | CARDIOLOGY CONSULTATION ---
DATE OF CONSULTATION: 04/03/2017 DATE OF CONSULTATION: 04/03/2017 REFERRING PHYSICIAN: Dr. Albino Hou. REASON FOR CONSULTATION: Chest pain. HISTORY OF PRESENT ILLNESS: Ms. Penn is a complex 76-year-old female who is well known to the cardiology service. She presented to the ER yesterday with episode of right-sided chest pain. The patient was lying supine when she developed a dull right-sided pain in the mid axillary line. The pain began to intensify then travel to her back and then around to her anterior chest. The duration of the pain was approximately 20 minutes. There was some associated diaphoresis. She experienced a second episode which concerned her and she came to the ER for further evaluation. While in the ER, she did experience this chest discomfort. She was not treated with any pain medications or nitroglycerin. The pain spontaneously resolved and she has been pain free overnight. Her cardiac enzymes are not significantly elevated. There are no dysrhythmias on telemetry. She remains ventricular paced. The pain is not reproducible on exam nor positional at this time. She did reduce her dose of prednisone to 15 mg yesterday morning. The pain onset was in the evening. Denies orthopnea, PND, or lower extremity edema. Repeat x-ray demonstrates no evidence of congestive heart failure. The patient offers no other complaints at this time. REVIEW OF SYSTEMS: The pertinent positive noted above, a comprehensive 10-system review is otherwise negative. PAST MEDICAL HISTORY: 1. Presumed hemorrhagic pericarditis 02/21/2017 initially treated with NSAIDs. Xarelto discontinued at that time. 2. 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 The patient currently is being treated with a 30-day prednisone taper. 3. Acute decompensated diastolic heart failure secondary to intravenous therapies during the time of her initial presentation of pericarditis and hypotension. 4. Paroxysmal atrial fibrillation, status post AV brayan junction ablation and dual chamber pacemaker implantation November 2016. 5. Bronchiectasis. 6. GERD. 7. Pancreatitis. 8. Cholecystitis. 9. Dyslipidemia. 10. Hypothyroidism. 11. Osteoarthritis. 12. Osteoporosis. PAST SURGICAL HISTORY: 1. Dual chamber pacemaker implantation. 2. Arthroscopic knee surgery. 3. Partial thyroidectomy. 4. Appendectomy. 5. Sinus surgery. 6. Tonsillectomy. 7. Tubal ligation. 8. Cholecystectomy. 9. AV brayan junctional ablation. 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 ALLERGIES: 1. CONTRAST. 2. SHELLFISH. 3. ERYTHROMYCIN. 4. PENICILLIN. 6. CELEBREX. 7. NYSTATIN. 8. XARELTO. 9. MOXIFLOXACIN. 10. FISH. ADMISSION OUTPATIENT MEDICATIONS: 1. Prednisone 15 mg daily. 2. Aspirin 81 mg daily. 3. Calcium with vitamin D daily. 4. Colchicine 0.6 mg daily. 5. Flaxseed daily. 6. Flonase daily. 7. Synthroid 100 mcg daily. 8. Lopressor 25 mg twice daily. 9. Prednisone. 10. Ranitidine 150 mg twice daily. 11. Rosuvastatin 5 mg 3 times per week. 12. Zoloft 100 mg. 13. Tiotropium bromide 2 puffs daily. 14. Xopenex as needed. EKG on admission demonstrates ventricular paced rhythm. The underlying rhythm likely atrial fibrillation/flutter. LABORATORY DATA: ESR is 6. White blood cell count 10.58, hemoglobin is 13.7, platelet count is 275. INR is 1.1. Sodium 139, potassium 4.2, chloride 106, CO2 is 26, BUN is 19, creatinine is 0.87. Initial troponin less than 0.015, repeat troponin 0.025. AST, ALT within normal limits. CHEST X-RAY: No evidence of congestive heart failure or consolidation, atelectasis noted. PHYSICAL EXAMINATION: VITAL SIGNS: Temperature is 36.4 degrees centigrade, pulse 75 beats per minute and regular, respiratory rate is 18 breaths per minute, blood pressure 138/85, SaO2 is 96% on room air. GENERAL: NAD, awake, alert, oriented x3. HEAD, EYES, EARS, NOSE, AND THROAT: Mucous membranes are moist. There is no scleral icterus. Conjunctivae are pink. NECK: Supple. There is no JVD, no HJR, no carotid bruit. HEART: Regular with a normal S1 and S2. There is no murmur, rub, or gallop. ABDOMEN: Soft, nontender. There is no rebound or guarding. Normal bowel sounds. EXTREMITIES: Warm and dry without clubbing, cyanosis, or edema. NEUROLOGIC EXAMINATION: Demonstrates no focal deficit. FINAL IMPRESSION: 1. Atypical chest discomfort -- suspect musculoskeletal etiology. Pain dissimilar from recurrent pericarditis discomfort. Pain may have been precipitated by reduction in corticosteroid dosing. Resting 2D transthoracic echo is pending. 2. Persistent atrial fibrillation, status post AV junction ablation with 100% ventricular pacing on telemetry. 3. Recurrent pericarditis, currently being treated with 30-day prednisone taper. The patient intolerant to b.i.d. dosing of colchicine. She is tolerating once daily dosing with improvement of her previously reported GI symptoms. 4. Pericardial effusion presumed to be hemorrhagic -- all anticoagulation on hold. 5. Bronchiectasis -- pulmonary status is stable. 6. Compensated diastolic heart failure -- patient appears euvolemic. PLAN AND RECOMMENDATIONS: Cardiac enzymes will be trended x3 sets. A repeat resting 2D transthoracic echo performed to assess pericardial effusion. She will continue her prednisone taper as previously ordered, 15 mg will be continued for a total of 5 days, then reduce to 10 mg daily for 5 days followed by 5 mg daily, then 2.5 mg every other day x3 doses. Other medications will be continued as listed above. If cardiac enzymes and echocardiogram are unremarkable we will likely discharge the patient home later today. Thank you for allowing me to take part in the care of your patient. LEATHA
--- NOTE | 2017-04-03 09:26 | Progress Note ---
Medicine Progress Note Date & Time of Visit: Apr 03, 2017 at 09:22. Subjective patient seen resting in bed, comfortable states chest pain has resolved denies dyspnea, dizziness, palpitations no fever/chills states she is back to her baseline, no other symptoms Objective Last 8 Hrs Date Time Temp Pulse Resp B/P (MAP) Pulse Ox O2 Delivery O2 Flow Rate FiO2 04/03/17 07:19 36.4 75 18 138/85 (102) 96 04/03/17 05:04 36.6 83 18 143/92 96 04/03/17 04:00 36.6 83 18 143/92 (109) 96 Room Air 04/03/17 02:42 70 21 133/95 96 04/03/17 02:02 70 21 129/82 96 04/03/17 01:57 70 16 95 04/03/17 01:31 117/82 04/03/17 01:27 70 19 96 Physical Exam: General- oriented x 3, not in distress, speaks in sentences with no effort Head- atraumatic Eyes- EOMI, anicteric ENT- oropharynx clear Neck- supple, no JVD, no adenopathy, no thyromegaly Lungs- clear to auscultation b/l Heart- regular rhythm; no murmur, normal rate Abdomen- normal bowel sounds, soft, nontender Extremities- no pretibial edema, no calf tenderness; peripheral pulses intact Neuro- alert, oriented x 3; no gross focal deficits Skin- warm & dry Laboratory Results: Last 24 Hours Test 04/03/17 00:05 04/03/17 07:06 White Blood Count 10.58 K/uL Red Blood Count 4.60 M/uL Hemoglobin 13.7 g/dL Hematocrit 41.7 % Mean Corpuscular Volume 90.7 fL Mean Corpuscular Hemoglobin 29.8 pg Mean Corpuscular Hemoglobin Concent 32.9 g/dl Platelet Count 275 K/uL Mean Platelet Volume 10.2 fL Neutrophils (%) (Auto) 76.1 % Lymphocytes (%) (Auto) 16.6 % Monocytes (%) (Auto) 6.1 % Eosinophils (%) (Auto) 0.2 % Basophils (%) (Auto) 0.3 % Neutrophils # (Auto) 8.05 K/uL Lymphocytes # (Auto) 1.76 K/uL Monocytes # (Auto) 0.65 K/uL Eosinophils # (Auto) 0.02 K/uL Basophils # (Auto) 0.03 K/uL RDW Standard Deviation 46.9 fL RDW Coefficient of Variation 14.3 % Immature Granulocyte % (Auto) 0.7 % Immature Granulocyte # (Auto) 0.07 K/uL Erythrocyte Sedimentation Rate 6 mm/hr Prothrombin Time 11.8 SECONDS Prothromb Time International Ratio 1.1 Activated Partial Thromboplast Time 21.9 SECONDS Partial Thromboplastin Ratio 0.8 Sodium Level 139 mmol/L Potassium Level 4.2 mmol/L Chloride Level 106 mmol/L Carbon Dioxide Level 26 mmol/L Anion Gap 7.0 mmol/L Blood Urea Nitrogen 19 mg/dl Creatinine 0.87 mg/dl Est Creatinine Clear Calc Drug Dose 60.2 ml/min Estimated GFR () 74.5 Estimated GFR (Non- 64.3 BUN/Creatinine Ratio 21.6 Random Glucose 130 mg/dl Calcium Level 10.0 mg/dl Total Bilirubin 0.3 mg/dl Aspartate Amino Transf (AST/SGOT) 24 U/L Alanine Aminotransferase (ALT/SGPT) 36 U/L Alkaline Phosphatase 66 U/L Total Creatine Kinase 40 U/L Creatine Kinase MB 1.5 ng/ml Creatine Kinase MB Ratio 3.8 Troponin I < 0.015 ng/ml 0.025 ng/ml C-Reactive Protein < 0.29 mg/dl Total Protein 7.2 gm/dl Albumin 3.7 gm/dl Globulin 3.5 gm/dl Albumin/Globulin Ratio 1.1 Assessment & Plan CHEST PAIN - r/o ACS cardiac markers x 2 negative echo: pending - recurrence of pericarditis unlikely echo: pending on Prednisone taper and Colchicine - not hypoxic, tachycardic PE unlikely PERICARDITIS / PERICARDIAL EFFUSION Recent episodes of pericarditis ESR 6. C-reactive protein < 0.29. echo: pending on Prednisone taper and Colchicine PAROXYSMAL ATRIAL FIBRILLATION S/P AV ablation + pacemaker implantation. Continue sotalol. Anticoagulants have been stopped due to pericarditis. HYPOTHYROIDISM Continue levothyroxine. DYSLIPIDEMIA Continue rosuvastatin. VTE PROPHYLAXIS Stopped anticoagulants due to pericarditis with pericardial effusion. SCD's. Ambulate. RESUSCITATION STATUS Discussed with patient at time of last admission. She had a durable POA and she believes a living will as well. She would like resuscitation attempted in the event of a cardiopulmonary arrest if there is a reasonable chance of a meaningful recovery, but does not want prolonged extraordinary measures if prognosis is very poor. Therefore, code status = "Level 1" (full resuscitation). DISPOSITION Observation status on Telemetry Unit. Family Medicine follow-up with Dr. Allan. Cariology follow-up with Dr. Gonzalez. Current Inpatient Medications: Current Inpatient Medications Medications (Trade) Dose Ordered Sig/Amauri Route Start Time Stop Time Status Last Admin Dose Admin Hydromorphone HCl (Dilaudid Inj) 0.5 mg Q2H PRN IV 04/03/17 02:30 04/17/17 02:29 Aspirin (Ecotrin Tab) 81 mg DAILY PO 04/03/17 09:00 05/03/17 08:59 04/03/17 08:33 81 MG Colchicine (Colchicine Tab) 0.6 mg QPM PO 04/03/17 21:00 05/03/17 20:59 Fluticasone Propionate (Flonase Nasal [place]) 1 sprays QPM BERNICE 04/03/17 21:00 05/03/17 20:59 Levothyroxine Sodium (Synthroid Tab) 100 mcg DAILYBB PO 04/03/17 06:30 05/03/17 06:29 04/03/17 05:56 100 MCG Metoprolol Tartrate (Lopressor Tab) 25 mg BID PO 04/03/17 09:00 05/03/17 08:59 04/03/17 08:33 25 MG Ranitidine HCl (zANTac TAB) 150 mg BID PO 04/03/17 09:00 05/03/17 08:59 04/03/17 08:33 150 MG Rosuvastatin Calcium (Crestor Tab) 5 mg MoWeFr@0900 PO 04/04/17 09:00 05/04/17 08:59 Sertraline HCl (Zoloft Tab) 100 mg HS PO 04/03/17 21:00 05/03/17 20:59 Tiotropium [place] (Spiriva Handihaler Inhaler) 1 puff QAM INH 04/03/17 09:00 05/03/17 08:59 04/03/17 08:33 1 PUFF Levalbuterol (Xopenex 1.25MG/ 3ML Neb) 1.25 mg Q8 PRN INH 04/03/17 02:45 05/03/17 02:44 Prednisone (PredniSONE TAB) 15 mg DAILY PO 04/03/17 09:00 05/03/17 08:59 04/03/17 08:33 15 MG Miscellaneous (Iv Fluids Completed) 1 ea PRN PRN N/A 04/03/17 04:30 04/03/18 04:29
--- NOTE | 2017-04-03 12:43 | ECHOCARDIOGRAM REPORT ---
*NOTICE TO RECEIVING [employer] This information is strictly Confidential and protected under [place] law. [place] law prohibits you from making any further disclosure of this information unless further disclosure is expressly permitted by the written consent of the person to whom it pertains or is authorized by law. A general authorization for the release of medical or other information is not sufficient for this purpose. Hospital accepts no responsibility if the information is made available to any other person, INCLUDING THE PATIENT. Interpretation Summary * Name: DAVIDE BARRIOS Study Date: 04/03/2017 08:38 AM BP: 143/92 mmHg * Patient Location: [id number].[id number]\[id number]\S\2 HR: 78 * : 1940 (M/d/yyyy) Gender: Female Height: 67 in * Age: 76 yrs Ethnicity: [place] Weight: 180 lb * Ordering Physician: Albino Hou * Referring Physician: Self, Referred * Performed By: Lilian Bray RCS * * Reason For Study: Pericarditis * BSA: 1.9 m2 * The study was technically adequate. * -- Conclusions -- * Ejection Fraction = 60-65%. * The left ventricular wall motion is normal. * The left atrium is severely dilated. * Small loculated lateral and posterior lateral percardial effusion. There is a trace amount of pericardial fluid adjacent to the right ventricle. * There are no echocardiographic indications of cardiac tamponade. * Compared to prior study: pericardial effusion is smaller. Procedure Details * A complete two-dimensional transthoracic echocardiogram was performed (2D, M-mode, Doppler and color flow Doppler). Left Ventricle * The left ventricle is normal in size. * There is normal left ventricular wall thickness. * Ejection Fraction = 60-65%. * Left ventricular systolic function is normal. * The left ventricular wall motion is normal. Right Ventricle * The right ventricle is normal size. * The right ventricular systolic function is normal as assessed by tricuspid annular plane systolic excursion (TAPSE) (normal >1.5 cm). Atria * The left atrium is severely dilated. * The right atrium is mildly dilated. * There is no evidence of atrial septal defect, but resolution does not allow assessment for a patent foramen ovale. Mitral Valve * The mitral valve is normal. * There is no mitral valve stenosis. * There is mild mitral 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. Tricuspid Valve * The tricuspid valve is normal. * There is no tricuspid stenosis. * There is mild tricuspid 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. * Doppler findings do not suggest pulmonary hypertension. Aortic Valve * The aortic valve is trileaflet. * Aortic stenosis is absent. * There is no significant aortic 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. Pulmonic Valve * The pulmonary valve is not well seen, but the Doppler examination is normal without significant 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 or stenosis. Great Vessels * The aortic root and proximal ascending aorta are normal sized. Pericardium/Pleural * Small loculated lateral and posterior lateral percardial effusion. There is a trace amount of pericardial fluid adjacent to the right ventricle. * There are no echocardiographic indications of cardiac tamponade. Great Vessels * Top normal IVC diameter with normal inspiratory variation/collapse. Left Ventricular Diastolic Function * Pulse wave TDI of the anterior and posterior mitral annulas demonstrates abnormal LV relaxation MMode 2D Measurements and Calculations RVDd 3.6 cm IVSd 0.74 cm LVIDd 3.8 cm LVIDs 2.3 cm LVPWd 0.85 cm IVS/LVPW 0.88 FS 38.3 % EDV(Teich) 61.3 ml ESV(Teich) 18.8 ml EF(Teich) 69.4 % EDV(cubed) 54.1 ml ESV(cubed) 12.7 ml EF(cubed) 76.6 % LV mass(C)d 84.6 grams LV mass(C)dI 43.8 grams/m\S\2 SV(Teich) 42.5 ml SI(Teich) 22.0 ml/m\S\2 SV(cubed) 41.5 ml SI(cubed) 21.4 ml/m\S\2 Ao root diam 2.8 cm Ao root area 6.0 cm\S\2 LVOT diam 1.9 cm LVOT area 3.0 cm\S\2 LVAd ap4 22.4 cm\S\2 LVLd ap4 7.0 cm EDV(MOD-sp4) 61.8 ml EDV(sp4-el) 60.7 ml LVAs ap4 13.5 cm\S\2 LVLs ap4 5.9 cm ESV(MOD-sp4) 26.8 ml ESV(sp4-el) 26.4 ml EF(MOD-sp4) 56.6 % EF(sp4-el) 56.5 % LVAd ap2 21.8 cm\S\2 LVLd ap2 7.2 cm EDV(MOD-sp2) 56.1 ml EDV(sp2-el) 55.7 ml LVAs ap2 10.5 cm\S\2 LVLs ap2 6.1 cm ESV(MOD-sp2) 15.6 ml ESV(sp2-el) 15.5 ml EF(MOD-sp2) 72.2 % EF(sp2-el) 72.2 % LVLd %diff 2.5 % EDV(MOD-bp) 59.1 ml LVLs %diff 3.7 % ESV(MOD-bp) 21.1 ml EF(MOD-bp) 64.3 % SV(MOD-sp4) 35.0 ml SI(MOD-sp4) 18.1 ml/m\S\2 SV(MOD-sp2) 40.5 ml SI(MOD-sp2) 20.9 ml/m\S\2 SV(MOD-bp) 38.0 ml SI(MOD-bp) 19.6 ml/m\S\2 SV(sp4-el) 34.3 ml SI(sp4-el) 17.8 ml/m\S\2 SV(sp2-el) 40.2 ml SI(sp2-el) 20.8 ml/m\S\2 Doppler Measurements and Calculations MV E max balaji 93.1 cm/sec MV dec time 0.09 sec Ao V2 max 111.3 cm/sec Ao max PG 5.0 mmHg Ao max PG (full) 3.5 mmHg SHANNAN(V,A) 1.6 cm\S\2 SHANNAN(V,D) 1.6 cm\S\2 LV V1 max PG 1.4 mmHg LV V1 max 59.7 cm/sec TR max balaji 242.2 cm/sec
--- NOTE | 2017-04-03 18:10 | Discharge Instructions ---
Discharge Instructions Date of Service Apr 03, 2017. Admission Reason for Admission: Chest Pain Discharge Discharge Diagnosis / Problem: CHEST PAIN, LIKELY MUSCULAR/SKELETAL PAIN Discharge Goals Goal(s): Diagnostic testing, Therapeutic intervention Activity Recommendations Activity Limitations: as noted below (NO HEAVY LIFTING OR EXERTION UNTIL RE- EVALUATED BY PRIMARY CARE PHYSICIAN) Lifting Limitations: until after follow-up appointment Exercise/Sports Limitations: until after follow-up appointment . Instructions / Follow-Up Instructions / Follow-Up YOU MAY CONTINUE YOUR USUAL MEDICATION REGIMEN. PLEASE CALL YOUR PRIMARY CARE PHYSICIAN OR RETURN TO ER IMMEDIATELY IF WITH RECURRENCE OR WORSENING OF SYMPTOMS. FOLLOW UP WITH DR. TAVAREZ ON Friday04/08/17 AT 9:35AM. FOLLOW UP WITH YOUR MORPHOLOGIST SCHEDULED. Current Hospital Diet Patient's current hospital diet: AHA Diet (Heart Healthy) Discharge Diet Recommended Diet: AHA Diet (Heart Healthy) Pending Studies Studies pending at discharge: no Laboratory Results Hemoglobin A1c Test 02/22/17 06:56 Range/Units Estimated Average Glucose 114 mg/dl Hemoglobin A1c 5.6 4.5-5.6 % Medical Emergencies . Who to Call and When: Medical Emergencies: If at any time you feel your situation is an emergency, please call 911 immediately. . Non-Emergent Contact Non-Emergency issues call your: Primary Care Provider, Baker Second Call Non-Emergent contact if: you have a fever, your pain is not controlled, your pain is worsening, you have any medication questions . . "Provider Documentation" section prepared by Ramos Obando. . VTE Core Measure Inpt VTE Proph given/why not?: SCD's
--- NOTE | 2017-04-03 18:17 | Discharge Summary ---
Discharge Summary Date of Service Apr 03, 2017. Discharge Summary Admission Date: Apr 03, 2017 at 02:28 Discharge Date: Apr 03, 2017 Discharge Disposition: Home Principal Diagnosis: CHEST PAIN, ACUTE CORONARY SYNDROME RULED OUT Secondary Diagnoses/Problems: PLEASE REFER TO HOSPITAL COURSE BELOW. Procedures: 2d echo: * Ejection Fraction = 60-65%. * The left ventricular wall motion is normal. * The left atrium is severely dilated. * Small loculated lateral and posterior lateral percardial effusion. There is a trace amount of pericardial fluid adjacent to the right ventricle. * There are no echocardiographic indications of cardiac tamponade. * Compared to prior study: pericardial effusion is smaller. Consultations: Steel Plate Caulker Dr. Gonzalez Pending Studies/Follow-Up: Please refer to hospital course below. Medication Reconciliation Continued Medications: Aspirin (Aspirin Ec) 81 Mg Tab 81 MG PO DAILY Biotin (Biotin) 5 Mg Tab 5 MG PO 3XWK TAKES FRIDAY/FRIDAY/FRIDAY Calcium Citrate-Vitamin D (Calcium Citrate + D) 1 Tab Tab 1 TAB PO DAILY Colchicine (Colchicine) 0.6 Mg Tab 0.6 MG PO QPM, TAB Flaxseed (Linseed) (Flax Seed Oil) 1,000 Mg Cap 1000 MG PO 3XWK Fluticasone Propionate (Nasal) (Flonase Allergy Relief) 50 Mcg/Act Spr 1 SPRAY BERNICE QPM Levalbuterol (Levalbuterol HCl) 1.25 Mg/3 Ml Nebu 3 ML NEB Q8 PRN for Wheezing Levothyroxine Sodium (Levothyroxine Sodium) 100 Mcg Tab 100 MCG PO QAM Metoprolol Tartrate (Lopressor) (Lopressor) 25 Mg Tab 25 MG PO BID, TAB Prednisone (Prednisone) 5 Mg Tab 5 MG PO UD for 26 Days, #15 TAB Take 20mg daily 4 days, then 15mg 5 days,10mg 5 days, 5mg 5 days, 2.5mg daily 5 days, 2.5mg every other day 3 doses to stop Prednisone Tab (Prednisone) 10 Mg Tab 10 MG PO UD for 26 Days, #18 TAB Take 20mg daily 4 days, then 15mg 5 days,10mg 5 days, 5mg 5 days, 2.5mg daily 5 days, 2.5mg every other day 3 doses to stop Probiotic Product (Probiotic) 1 Tab Tab 1 TAB PO DAILY FRIDAY, FRIDAY, FRIDAY Ranitidine (Zantac) 150 Mg Tab 150 MG PO BID for 30 Days, #60 TAB 3 Refills Rosuvastatin Calcium (Crestor) 5 Mg Tab 5 MG PO 3XWK, TAB 5 Refills EVERY FRIDAY/FRIDAY/FRIDAY Sertraline (Zoloft) 100 Mg Tab 100 MG PO HS Tiotropium [place] (Spiriva Respimat) 2.5 Mcg/Act Spr 2 PUFF INH QAM, INHALER Admission Information HPI (per Admitting provider): 76 YO female followed by Dr. Allan for Family Medicine and Dr. Gonzalez for Cardiology. History of atrial fibrillation, pericarditis, and other problems noted below. Seen by EP at [facility] in November of this year. AV ablation + pacemaker implantation performed on 12/02/16. Readmitted to [facility] 12/03/16 with chest pain. Troponins slightly elevated. CPK's normal. Echo showed normal LV wall motion and function, no pericardial effusion. Presented to [facility] 02/21/17 with chest pain and hypotension. CT of chest demonstrated a pericardial effusion. Echo showed small pericardial effusion, no evidence of tamponade. [place] to have possible hemopericardium. Rivaroxaban was discontinued. Received prednisone and colchicine. Transferred to [facility] 02/22/17 for further evaluation. Did not require surgical intervention. Discharged from [facility] to home on 02/25/17. Readmitted to [facility] 02/27/17 with increasing SOB. Chest x-ray demonstrated bilateral pleural effusions. Exam consistent with fluid overload. Echo on 02/28/17 showed normal LV systolic function, small pericardial effusion without tamponade. Treated with diuretics with improvement. Discharged to home 03/02/17. She was seen in Cardiology Clinic on 03/18/17 and was doing well. Anticoagulation with warfarin 2.5 mg daily was started on 03/21/17 Presented to ED 03/24/17 with pleuritic chest pain. EKG and cardiac markers were OK. Discharged to home. Seen in Cardiology Clinic on 03/25. Found to have friction rub. Echo sowed moderate pericardial effusion without tamponade. Readmitted to [facility]. Colchicine was continued. Placed on steroids with improvement. Discharged 03/28/17 on colchicine 0.6 mg daily + prednisone taper. Doing well until this evening when she developed chest pain, different in nature that recent episodes of pericarditis. CP located in right anterolateral chest and radiated to her right jaw. Pain moderately severe, not pleuritic or exertional in nature. No associated diaphoresis, nausea, vomiting, fever, or cough. Did not try any medications for it. Had 2 episodes at home, each lasting for about 20 minutes. Came to ED for evaluation. Had another episode of similar right-sided chest pain that resolved spontaneously. Pain-free and comfortable at time of my assessment. . Physical Exam (per Admitting): General Appearance: WD/WN, no apparent distress Head: normocephalic, atraumatic Eyes: normal inspection, PERRL, EOMI, sclerae normal ENT: normal ENT inspection, hearing grossly normal, pharynx normal Neck: supple, no adenopathy, thyroid normal, no JVD, trachea midline Respiratory/Chest: lungs clear, no respiratory distress, no accessory muscle use Cardiovascular: regular rate, rhythm, no edema, no gallop, no JVD, no murmur , + pertinent finding (no pericardial friction rub appreciated) Abdomen/GI: normal bowel sounds, non tender, soft, no organomegaly, no pulsatile mass Extremities/Musculoskelatal: normal inspection, no calf tenderness, no pedal edema Neurologic/Psych: reception manager II-XII nml as tested (PERRL, EOMI, no facial palsy, no dysarthria), no motor/sensory deficits, alert, normal mood/affect, oriented x 3 Hospital Course CHEST PAIN, ACUTE CORONARY SYNDROME RULED OUT - cardiac markers x 3 negative echo: * Ejection Fraction = 60-65%. * The left ventricular wall motion is normal. * The left atrium is severely dilated. * Small loculated lateral and posterior lateral percardial effusion. There is a trace amount of pericardial fluid adjacent to the right ventricle. * There are no echocardiographic indications of cardiac tamponade. * Compared to prior study: pericardial effusion is smaller. ESR: 6 - evaluated by Cardiology [facility] Dr. Gonzalez ACS ruled out chest pain atypical, likely musculo-skeletal etiology - recommend to continue Prednisone taper as previously prescribed and Colchicine daily - on hospital day 2, patient reports chest pain has completely resolved, and denies any other symptoms, states she is back to her baseline - ff up with PCP in 1 week and [employer] [facility] Caulker as scheduled PERICARDITIS / PERICARDIAL EFFUSION Recent episodes of pericarditis ESR 6. C-reactive protein < 0.29. echo: as noted above recommend to continue Prednisone taper as previously prescribed and Colchicine daily PAROXYSMAL ATRIAL FIBRILLATION S/P AV ablation + pacemaker implantation. Continue sotalol. Anticoagulants have been stopped due to pericarditis. HYPOTHYROIDISM Continue levothyroxine. DYSLIPIDEMIA Continue rosuvastatin. VTE PROPHYLAXIS Stopped anticoagulants due to pericarditis with pericardial effusion. SCD's. Ambulate. DISPOSITION d/c home today Family Medicine follow-up with Dr. Allan in 1 week. Cariology follow-up with Dr. Gonzalez as scheduled. Total time spent on discharge = 35 minutes This includes examination of the patient, discharge planning, medication reconciliation, and communication with other providers. Discharge Instructions Discharge Instructions Date of Service Apr 03, 2017. Admission Reason for Admission: Chest Pain Discharge Discharge Diagnosis / Problem: CHEST PAIN, LIKELY MUSCULAR/SKELETAL PAIN Discharge Goals Goal(s): Diagnostic testing, Therapeutic intervention Activity Recommendations Activity Limitations: as noted below (NO HEAVY LIFTING OR EXERTION UNTIL RE- EVALUATED BY PRIMARY CARE PHYSICIAN) Lifting Limitations: until after follow-up appointment Exercise/Sports Limitations: until after follow-up appointment . Instructions / Follow-Up Instructions / Follow-Up YOU MAY CONTINUE YOUR USUAL MEDICATION REGIMEN. PLEASE CALL YOUR PRIMARY CARE PHYSICIAN OR RETURN TO ER IMMEDIATELY IF WITH RECURRENCE OR WORSENING OF SYMPTOMS. FOLLOW UP WITH DR. ALLAN ON Friday04/08/17 AT 9:35AM. FOLLOW UP WITH YOUR COST REDUCTION ENGINEER SCHEDULED. Current Hospital Diet Patient's current hospital diet: AHA Diet (Heart Healthy) Discharge Diet Recommended Diet: AHA Diet (Heart Healthy) Pending Studies Studies pending at discharge: no Laboratory Results Hemoglobin A1c Test 02/22/17 06:56 Range/Units Estimated Average Glucose 114 mg/dl Hemoglobin A1c 5.6 4.5-5.6 % Medical Emergencies . Who to Call and When: Medical Emergencies: If at any time you feel your situation is an emergency, please call 911 immediately. . Non-Emergent Contact Non-Emergency issues call your: Primary Care Provider, Steel Plate Caulker Call Non-Emergent contact if: you have a fever, your pain is not controlled, your pain is worsening, you have any medication questions . . "Provider Documentation" section prepared by Ramos Obando. . VTE Core Measure Inpt VTE Proph given/why not?: SCD's
[2017-04-03] MEDS ORDERED: FLUTICASONE PROPIONATE NA SPR 16 GM BTL NAE SCH (21:00)
[2017-04-03] MEDS ORDERED: SERTRALINE HCL 100 MG TAB PO SCH (21:00)
[2017-04-03] MEDS ORDERED: COLCHICINE 0.6 MG TAB PO SCH (21:00)
[2017-04-04] MEDS ORDERED: ROSUVASTATIN CALCIUM 10 MG TAB PO SCH (09:00)
== END 2017-04-03 18:49 | disposition home or self-care (01) ==
LOC: C.EDB 23:42 → C.MED 04-03 02:28 → ENRESERV 04-03 02:36
PROVIDERS: ADMIT Hospitalist; ATTEND Internal Medicine
DX: R07.9 Chest pain, unspecified (principal); I48.0 Paroxysmal atrial fibrillation; K21.9 Gastro-esophageal reflux disease without esophagitis; E78.5 Hyperlipidemia, unspecified; M19.90 Unspecified osteoarthritis, unspecified site; M81.0 Age-related osteoporosis without current pathological fracture; Z90.49 Acquired absence of other specified parts of digestive tract; Z79.82 Long term (current) use of aspirin; Z95.0 Presence of cardiac pacemaker

== ENCOUNTER 2017-06-30 11:32 | Observation (INO) | payer OTHER ==
[~2017-06-30] VITALS: Ht 172.7 cm; Wt 82.8 kg
[~2017-06-30 11:32] MED LIST changes: -ASPEC81 PO; +ASPI81TA28 PO; -CEFD1CAP14 PO; -LPR25 PO; +METO25TA56 PO; -PRED-301 PO; -PRED10TA PO
[2017-06-30] MEDS ORDERED: ONDANSETRON INJ 2 MG/ML 2 ML VIAL IV STA (11:54)
--- NOTE | 2017-06-30 11:56 | EMERGENCY ROOM VISIT NOTE ---
History Report prepared by Cecily: Alex Grajeda Under the Supervision of: Dr. Robb Malone D.O. First contact with patient: 11:41 Chief Complaint: FLU LIKE SX Stated Complaint: ILLNESS History of Present Illness The patient is a 76 year old female with a history of atrial fibrillation and a pacemaker placement who presents to the Emergency Room via EMS with complaints of a worsening illness that started yesterday. She states that she has been struggling with pericardial effusions since February, but the fluid is never totally gone. The patient says that she started to feel badly yesterday, with palpitations, lightheadedness, tiredness, and headache. She notes that she then felt okay upon waking this morning, but around 2 hours ago, she started to feel badly again, with a headache, lightheadedness, nausea, episodes of vomiting, and episodes of diarrhea. The patient adds that she took Furosemide per her doctor's suggestion because she started to have swelling in her legs again. She notes that this is similar to how she felt when she had the pericardial effusions. Per the patient's family, the patient had a high blood pressure prior to arrival at 146/88. The patient denies any fevers or abdominal pain. She takes Aspirin daily. She notes that she has not taken any antibiotics recently. She lives alone. The patient is scheduled for an echocardiogram in a few days. t Source of History: patient, family Onset: Yesterday Position: other (global - illness) Quality: other (hx of pericardial effusion) Timing: worsening Associated Symptoms: + headache, + nausea, + vomiting, + diarrhea, + fatigue , No fevers, No abdominal pain Note: Associated symptoms: Lightheadedness, palpitations. Leg swelling. High blood pressure. Review of Systems See HPI for pertinent positives & negatives. A total of 10 systems reviewed and were otherwise negative. Past Medical & Surgical Medical Problems: (1) Bronchiectasis (2) GERD (gastroesophageal reflux disease) (3) History of pancreatitis (4) History of pericarditis (5) HLD (hyperlipidemia) (6) Hypothyroidism (7) Osteoarthritis (8) Osteoporosis (9) Paroxysmal atrial fibrillation (10) Pericardial effusion Surgical Problems: (1) H/O arthroscopic knee surgery (2) H/O partial thyroidectomy (3) History of appendectomy (4) History of sinus surgery (5) History of tonsillectomy (6) History of tubal ligation (7) Hx of cholecystectomy (8) Status post atrioventricular brayan ablation (9) Status post cardiac pacemaker procedure Family History Patient reports no known family medical history. Social History Smoking Status: Never Smoker Alcohol Use: occasionally Drug Use: none Marital Status: Housing Status: lives with family Occupation Status: retired Current/Historical Medications Scheduled Aspirin (Aspirin Ec), 81 MG PO DAILY Biotin (Biotin), 5 MG PO 3XWK Calcium Citrate-Vitamin D (Calcium Citrate + D), 1 TAB PO DAILY Colchicine (Colchicine), 0.6 MG PO BID Flaxseed (Linseed) (Flax Seed Oil), 1,000 MG PO 3XWK Fluticasone Propionate (Nasal) (Flonase Allergy Relief), 1 SPRAY BERNICE QPM Levothyroxine Sodium (Levothyroxine Sodium), 100 MCG PO QAM Metoprolol Tartrate (Lopressor) (Lopressor), 25 MG PO BID Probiotic Product (Probiotic), 1 TAB PO DAILY Ranitidine (Zantac), 150 MG PO BID Rosuvastatin Calcium (Crestor), 5 MG PO 3XWK Sertraline (Zoloft), 100 MG PO HS Tiotropium [place] (Spiriva Respimat), 2 PUFF INH QAM Scheduled PRN Torsemide (Torsemide), 1 TAB PO DAILY PRN for Shortness of Breath Allergies Coded Allergies: Iodinated Diagnostic Agents (Verified Allergy, Severe, ANAPHYLAXIS, ) Shellfish (Verified Allergy, Severe, "Seafood" -- ANAPHYLAXIS, 06/30/17) Erythromycin (Verified Allergy, Intermediate, RASH, 06/30/17) Simvastatin (Verified Allergy, Intermediate, RASH, 06/30/17) Celecoxib (Verified Allergy, Mild, RASH, 06/30/17) Nystatin (Verified Allergy, Mild, RASH, 06/30/17) Rivaroxaban (Verified Adverse Reaction, Severe, 0, 06/30/17) possivble hemorrhagic pericardial effusion Moxifloxacin (Verified Adverse Reaction, Intermediate, HALUCINATIONS, ) Physical Exam Vital Signs Date Time Temp Pulse Resp B/P (MAP) Pulse Ox O2 Delivery O2 Flow Rate FiO2 06/30/17 16:03 71 06/30/17 15:11 70 18 131/87 94 Room Air 06/30/17 13:55 80 18 124/82 94 Room Air 06/30/17 12:03 70 06/30/17 11:37 95 Room Air 06/30/17 11:37 36.6 80 18 139/89 95 Room Air Physical Exam GENERAL: Patient is awake, alert, and in no acute distress. Patient is resting comfortably and showing no signs of anxiety EYES: The conjunctivae are clear. The pupils are round and reactive. EARS, NOSE, MOUTH AND THROAT: The nose is without any evidence of any deformity. Mucous membranes are moist tongue is midline NECK: The neck is nontender and supple. RESPIRATORY: Lung sounds were diminished at both bases with fine rales at both bases. No tachypnea or conversational dyspnea appreciated. CARDIOVASCULAR: Regular rate and rhythm noted there no murmurs rubs or gallops normal S1 normal S2 GASTROINTESTINAL: The abdomen is soft. Bowel sounds are present in all quadrants. Abdomen is nontender MUSCULOSKELETAL/EXTREMITIES: There is no evidence of gross deformity full range of motion is noted in the hips and shoulders SKIN: There is no obvious evidence of any rash. There are no petechiae, pallor or cyanosis noted. NEUROLOGIC: Patient is awake alert and oriented x3 strength is symmetric patellar reflexes are 2+ bilaterally Medical Decision & Procedures ER Provider Diagnostic Interpretation: Radiology results as stated below per my review and radiologist interpretation: KUB HISTORY: vomiting COMPARISON: None. FINDINGS: The bowel gas pattern is unremarkable. There are no dilated loops of small bowel to suggest an obstruction. No renal calculi. No ureteral calculi. Calcifications in the deep pelvis likely represent phleboliths. No pneumoperitoneum or pneumatosis. Cholecystectomy. Pacemaker wires are noted. Linear density left lung base favor subsegmental atelectasis or scarring. The heart is mildly enlarged. IMPRESSION: No evidence for bowel obstruction. Electronically signed by: Chin Chu M.D. 06/30/2017 12:41 PM Dictated Date/Time: 06/30/2017 12:[address] HEAD WITHOUT CONTRAST (CT) CLINICAL HISTORY: Headache COMPARISON STUDY: No previous studies for comparison. TECHNIQUE: Axial CT of the brain is performed from the vertex to the skull base. IV contrast was not administered for this examination. A dose lowering technique was utilized adhering to the principles of ALARA. CT DOSE: 729.78 mGycm FINDINGS: No intra or extra-axial mass lesions are visualized. There is no CT evidence of acute cortical infarction. There is no evidence of midline shift. There is no acute hemorrhage. No calvarial fractures are visualized. There are minor white matter hypodensities likely on a small vessel basis. There is no evidence of pathologic ventricular dilatation. There is mild left maxillary sinus mucosal thickening. IMPRESSION: No acute intracranial findings Electronically signed by: Jagdeep Thayer M.D. 06/30/2017 1:49 PM Dictated Date/Time: 06/30/2017 1:48 PM CHEST ONE VIEW PORTABLE CLINICAL HISTORY: 76 years-old Female presenting with EVALUATE RESPIRATORY DISTRESS.DYSPNEA. TECHNIQUE: Portable supine AP view of the chest was obtained. COMPARISON: 04/03/2017. FINDINGS: Left subclavian pacer with leads in the right atrium and right ventricular apex. Cardiac silhouette enlarged, increased from prior. Prominence of upper lobe pulmonary vasculature. Minimal bandlike opacities at the lung bases bilaterally. No large effusion or pneumothorax. Osseous structures normal. Upper abdomen normal. IMPRESSION: 1. Cardiomegaly, increased from prior. 2. Possible volume overload. 3. Bibasilar atelectasis. Electronically signed by: Jean Rashid M.D. 06/30/2017 12:59 PM Dictated Date/Time: 06/30/2017 12:57 PM Laboratory Results 06/30/17 12:10 Red Blood Count 4.84, Mean Corpuscular Volume 88.6, Mean Corpuscular Hemoglobin 28.7, Mean Corpuscular Hemoglobin Concent 32.4, Mean Platelet Volume 10.2, Neutrophils (%) (Auto) 82.0, Lymphocytes (%) (Auto) 9.7, Monocytes (%) (Auto) 6.9, Eosinophils (%) (Auto) 1.2, Basophils (%) (Auto) 0.1, Neutrophils # (Auto) 7.98, Lymphocytes # (Auto) 0.94, Monocytes # (Auto) 0.67, Eosinophils # (Auto) 0.12, Basophils # (Auto) 0.01 06/30/17 12:10 Test 06/30/17 12:10 06/30/17 12:51 06/30/17 14:21 06/30/17 16:02 White Blood Count 9.73 K/uL (4.8-10.8) Red Blood Count 4.84 M/uL (4.2-5.4) Hemoglobin 13.9 g/dL (12.0-16.0) Hematocrit 42.9 % (37-47) Mean Corpuscular Volume 88.6 fL (80-100) Mean Corpuscular Hemoglobin 28.7 pg (25-34) Mean Corpuscular Hemoglobin Concent 32.4 g/dl (32-36) Platelet Count 164 K/uL (130-400) Mean Platelet Volume 10.2 fL (7.4-10.4) Neutrophils (%) (Auto) 82.0 % Lymphocytes (%) (Auto) 9.7 % Monocytes (%) (Auto) 6.9 % Eosinophils (%) (Auto) 1.2 % Basophils (%) (Auto) 0.1 % Neutrophils # (Auto) 7.98 K/uL (1.4-6.5) Lymphocytes # (Auto) 0.94 K/uL (1.2-3.4) Monocytes # (Auto) 0.67 K/uL (0.11-0.59) Eosinophils # (Auto) 0.12 K/uL (0-0.5) Basophils # (Auto) 0.01 K/uL (0-0.2) RDW Standard Deviation 48.7 fL (36.4-46.3) RDW Coefficient of Variation 15.0 % (11.5-14.5) Immature Granulocyte % (Auto) 0.1 % Immature Granulocyte # (Auto) 0.01 K/uL (0.00-0.02) Anion Gap 7.0 mmol/L (3-11) Est Creatinine Clear Calc Drug Dose 64.0 ml/min Estimated GFR () 78.8 Estimated GFR (Non- 68.0 BUN/Creatinine Ratio 26.7 (10-20) Calcium Level 9.3 mg/dl (8.5-10.1) Magnesium Level 2.5 mg/dl (1.8-2.4) Total Bilirubin 0.5 mg/dl (0.2-1) Aspartate Amino Transf (AST/SGOT) 15 U/L (15-37) Alanine Aminotransferase (ALT/SGPT) 23 U/L (12-78) Alkaline Phosphatase 62 U/L (45-117) Total Creatine Kinase 60 U/L (26-192) Creatine Kinase MB 1.7 ng/ml (0.5-3.6) Creatine Kinase MB Ratio 2.8 (0-3.0) Troponin I < 0.015 ng/ml (0-0.045) Pro-B-Type Natriuretic Peptide 2564 pg/ml (0-1800) Total Protein 7.2 gm/dl (6.4-8.2) Albumin 3.9 gm/dl (3.4-5.0) Globulin 3.3 gm/dl (2.5-4.0) Albumin/Globulin Ratio 1.2 (0.9-2) Thyroid Stimulating Hormone (TSH) 3.520 uIu/ml (0.300-4.500) Free Thyroxine 1.11 ng/dl (0.80-1.60) Urine Color YELLOW Urine Appearance CLOUDY (CLEAR) Urine pH 5.0 (4.5-7.5) Urine Specific [place] 1.022 (1.000-1.030) Urine Protein NEG (NEG) Urine Glucose (UA) NEG (NEG) Urine Ketones NEG (NEG) Urine Occult Blood 2+ (NEG) Urine Nitrite NEG (NEG) Urine Bilirubin NEG (NEG) Urine Urobilinogen NEG (NEG) Urine Leukocyte Esterase NEG (NEG) Urine WBC (Auto) 1-5 /hpf (0-5) Urine RBC (Auto) 5-10 /hpf (0-4) Urine Hyaline Casts (Auto) 1-5 /lpf (0-5) Urine Epithelial Cells (Auto) >30 /lpf (0-5) Urine Bacteria (Auto) NEG (NEG) Urine Crystals CALCIUM OXALATE (NONE Prothrombin Time 11.9 SECONDS (9.0-12.0) Prothromb Time International Ratio 1.1 (0.9-1.1) Activated Partial Thromboplast Time 25.0 SECONDS (21.0-31.0) Partial Thromboplastin Ratio 1.0 Influenza Type A (RT-PCR) Neg for Influ A (NEG) Influenza Type B (RT-PCR) Neg for Influ B (NEG) Laboratory results per my review. Medications Administered Medications (Trade) Dose Ordered Sig/Amauri Route Start Time Stop Time Status Last Admin Dose Admin Ondansetron HCl (Zofran Inj) 4 mg NOW STAT IV 06/30/17 11:54 06/30/17 11:55 DC 06/30/17 12:38 4 MG ECG Indication: vomiting Rate (beats per minute): 70 Rhythm: other (ventricular pacemaker) Findings: other (no PVC's, no [place] beats) Change: no significant change (from 04/02/17) ED Course 1149: The patient was evaluated in room B4B. A complete history and physical examination were performed. 1154: Ordered Zofran Inj 4 mg IV. 1449: I reevaluated and updated the patient. 1523: I discussed the patient with Dr. Carlos Dos Santos cardiology. 1533: Upon reevaluation, the patient is resting comfortably. I discussed results and treatment plan with her. She verbalizes agreement and understanding. The patient will be evaluated for further management and care. 1535: I discussed the patient's case with Peg Dos Santos. The patient will be evaluated for further management. Medical Decision Differential diagnosis: Etiologies such as gastroenteritis, food borne illness, infections, appendicitis , diverticulitis, inflammatory bowel disease, obstruction, GI bleed, biliary pathology, as well as others were entertained. Nursing notes reviewed. Additional history is obtained from the patient's daughter. The patient is a 76-year-old female who presented to the emergency department with multiple complaints. The patient has a history of a pericardial effusion. When she called her primary care physician they felt this could be consistent with the patient's previous pericardial effusion. On chest x-ray she does appear to have significant cardiomegaly. The patient was not found to be persistently hypoxic but she did have some episodes of hypoxia while she was at rest. I discussed the patient's laboratory radiographic studies with her. She was treated with Zofran in the emergency department. I also discussed her case with her primary route sales representative. Given the patient's previous history he felt it would be in the patient's best interest to have an echocardiogram as an inpatient to determine if this was a recurrence of her pericardial effusion. The patient was also complaining of palpitations. Her pacemaker was interrogated and she was found have episodes of rapid atrial fibrillation. I discussed this case with the on-call [facility] hospitalist. They have agreed to evaluate the patient in the emergency department for further management and disposition. Medication Reconcilliation Current Medication List: was personally reviewed by me Blood Pressure Screening Patient's blood pressure: Normal blood pressure Consults Time Called: 152 Consulting Physician: Dr. Carlos Dos Santos cardiology Returned Call: 1523 I discussed the patient with Dr. Carlos Dos Santos cardiology. Additional Consults: Time Called: 1530 Consulted Physician: Peg Dos Santos Returned Call: 1535 Additional Comments: I discussed the patient's case with Peg Dos Santos. The patient will be evaluated for further management. Impression Primary Impression: Afib Additional Impressions: Pulmonary edema Weakness Pericardial effusion Scribe Attestation The scribe's documentation has been prepared under my direction and personally reviewed by me in its entirety. I confirm that the note above accurately reflects all work, treatment, procedures, and medical decision making performed by me. Departure Information Dispostion Being Evaluated By Hospitalist Referrals Trang Allan D.O. (PCP) Patient Instructions My [facility] Problem Qualifiers Primary Impression: Afib Atrial fibrillation type: chronic Qualified Codes: I48.2 - Chronic atrial fibrillation Additional Impressions: Pulmonary edema Chronicity: acute Qualified Codes: J81.0 - Acute pulmonary edema
[2017-06-30 12:26] LABS: BASO % 0.1 %; BASO ABS # 0.01 K/uL (0-0.2); COMPLETE YES; EOS % 1.2 %; HEMATOCRIT 42.9 % (37-47); IG% 0.1 %; LYMPH % 9.7 %; LYMPH ABS # 0.94 K/uL (1.2-3.4); MEAN CELL VOLUME 88.6 fL (80-100); MEAN CORPUSCULAR HEMOGLOBIN 28.7 pg (25-34); MEAN CORPUSCULAR HGB CONC 32.4 g/dl (32-36); MEAN PLATELET VOLUME 10.2 fL (7.4-10.4); MONO % 6.9 %; PLATELET COUNT 164 K/uL (130-400); RED BLOOD COUNT 4.84 M/uL (4.2-5.4); WHITE BLOOD COUNT 9.73 K/uL (4.8-10.8)
--- NOTE | 2017-06-30 12:42 | DIAGNOSTIC IMAGING REPORT ---
KUB HISTORY: vomiting COMPARISON: None. FINDINGS: The bowel gas pattern is unremarkable. There are no dilated loops of small bowel to suggest an obstruction. No renal calculi. No ureteral calculi. Calcifications in the deep pelvis likely represent phleboliths. No pneumoperitoneum or pneumatosis. Cholecystectomy. Pacemaker wires are noted. Linear density left lung base favor subsegmental atelectasis or scarring. The heart is mildly enlarged. IMPRESSION: No evidence for bowel obstruction. Electronically signed by: Chin Chu M.D. 06/30/2017 12:41 PM Dictated Date/Time: 06/30/2017 12:39 PM
[2017-06-30 12:46] LABS: ALT/SGPT 23 U/L (12-78); AST/SGOT 15 U/L (15-37); BLOOD UREA NITROGEN 22 mg/dl (7-18); BUN/CREATININE RATIO 26.7 (10-20); CALCIUM 9.3 mg/dl (8.5-10.1); CARBON DIOXIDE 25 mmol/L (21-32); CHLORIDE 108 mmol/L (98-107); CREATININE 0.83 mg/dl (0.60-1.20); GLUCOSE 88 mg/dl (70-99); MAGNESIUM 2.5 mg/dl (1.8-2.4); POTASSIUM 4.1 mmol/L (3.5-5.1); SODIUM 139 mmol/L (136-145)
[2017-06-30 12:53] LABS: ALB/GLOB RATIO 1.2 (0.9-2); ALKALINE PHOSPHATASE 62 U/L (45-117); CKMB/CK RATIO 2.8 (0-3.0)
--- NOTE | 2017-06-30 13:00 | DIAGNOSTIC IMAGING REPORT ---
CHEST ONE VIEW PORTABLE CLINICAL HISTORY: 76 years-old Female presenting with EVALUATE RESPIRATORY DISTRESS.DYSPNEA. TECHNIQUE: Portable supine AP view of the chest was obtained. COMPARISON: 04/03/2017. FINDINGS: Left subclavian pacer with leads in the right atrium and right ventricular apex. Cardiac silhouette enlarged, increased from prior. Prominence of upper lobe pulmonary vasculature. Minimal bandlike opacities at the lung bases bilaterally. No large effusion or pneumothorax. Osseous structures normal. Upper abdomen normal. IMPRESSION: 1. Cardiomegaly, increased from prior. 2. Possible volume overload. 3. Bibasilar atelectasis. Electronically signed by: Jean Rashid M.D. 06/30/2017 12:59 PM Dictated Date/Time: 06/30/2017 12:57 PM
--- NOTE | 2017-06-30 13:50 | DIAGNOSTIC IMAGING REPORT ---
CT HEAD WITHOUT CONTRAST (CT) CLINICAL HISTORY: Headache COMPARISON STUDY: No previous studies for comparison. TECHNIQUE: Axial CT of the brain is performed from the vertex to the skull base. IV contrast was not administered for this examination. A dose lowering technique was utilized adhering to the principles of ALARA. CT DOSE: 729.78 mGycm FINDINGS: No intra or extra-axial mass lesions are visualized. There is no CT evidence of acute cortical infarction. There is no evidence of midline shift. There is no acute hemorrhage. No calvarial fractures are visualized. There are minor white matter hypodensities likely on a small vessel basis. There is no evidence of pathologic ventricular dilatation. There is mild left maxillary sinus mucosal thickening. IMPRESSION: No acute intracranial findings Electronically signed by: Jagdeep Thayer M.D. 06/30/2017 1:49 PM Dictated Date/Time: 06/30/2017 1:48 PM
[2017-06-30] MEDS ORDERED: DMD20 PO (14:01)
[2017-06-30 14:09] LABS: URINE APPEARANCE CLOUDY (CLEAR); URINE BILIRUBIN NEG (NEG); URINE COLOR YELLOW; URINE EPITHELIAL CELL AUTO >30 /lpf (0-5); URINE NITRITE NEG (NEG); URINE SPECIFIC GRAVITY 1.022 (1.000-1.030); UROBILINOGEN NEG (NEG)
[2017-06-30 14:16] LABS: MANUAL MICROSCOPIC REQUIRED? NO; REVIEW REQ? NO
[2017-06-30 14:42] LABS: INR 1.1 (0.9-1.1); PROTHROMBIN TIME (PATIENT) 11.9 SECONDS (9.0-12.0)
[2017-06-30] MEDS ORDERED: ONDANSETRON INJ 2 MG/ML 2 ML VIAL IV PRN ×2 (16:45→19:00)
[2017-06-30] MEDS ORDERED: METOPROLOL TARTRATE 25 MG TAB PO ONE (16:45)
[2017-06-30] MEDS ORDERED: COLCHICINE 0.6 MG TAB PO ONE (16:45)
[2017-06-30] MEDS ORDERED: TORS5TAB10 PO (16:48)
[2017-06-30 17:03] LABS: INFLUENZA A PCR Neg for Influ A (NEG); INFLUENZA B PCR Neg for Influ B (NEG)
[2017-06-30] MEDS ORDERED: METOPROLOL TARTRATE 50 MG TAB ONE (17:22)
[2017-06-30] MEDS ORDERED: COLCHICINE 0.6 MG TAB ONE (17:22)
[2017-06-30 17:35] VITALS: BP 144/90; PULSE 81; TEMP 36.8; O2SAT 94
[2017-06-30] MEDS: ASPIRIN 81 MG ECTAB PO SCH (18:48)
[2017-06-30 19:00] VITALS: BP 144/90; PULSE 81; TEMP 36.8; O2SAT 94; Ht 172.7 cm; Wt 82.8 kg
[2017-06-30] MEDS ORDERED: IV FLUIDS COMPLETED PRN (19:15)
--- NOTE | 2017-06-30 19:36 | History and Physical ---
History & Physical Date & Time of Service: Jun 30, 2017 at 16:45 Chief Complaint: Gastroenteritis, Pericardial Effusion Primary Care Physician: Trang Allan D.O. History of Present Illness Source: patient ( ), family This is a 76yo F with a PMH of paroxysmal A Fib, pericardial effusion ( diagnosed in February 2017), diastolic CHF, bronchiectasis, complete heart block ( s/p PM placement in November 2016), GERD and hypothyroidism who presents with worsening illness x 2 days. Patient states that she started to "feel bad" yesterday, endorsing dull headache, palpitations and fatigue. Woke up today and noted a 3lb weight gain as well as bilateral LE edema. Denies any SOB or chest pain. Took her PRN torsemide dose around 10am. About an hour later patient experienced sudden onset nausea, vomiting and diarrhea. Endorses 3 episodes of vomiting and 4 episodes of diarrhea by the time she presented in the ED for further evaluation. During February admission, patient presented with similar symptoms and was diagnosed with a pericardial effusion. [place] to have possible hemopericardium 2/ 2 Xarelto, which was then discontinued. Patient started on colchicine and prednisone and transferred to [facility] for further evaluation. No surgical intervention was needed. Was readmitted later in February with SOB and CXR showed bilateral pleural effusions. Echo (03/02/17) showed diastolic dysfunction with preserved EF as well as small pericardial effusion without tamponade. Improved with diuretics and was discharged home with close cardiology follow-up (Carlos ). In cardiac clinic on 03/25, patient was found to have a moderate pericardial effusion and was readmitted to [facility]. Colchicine was continued and received a steroid taper upon discharge. Was admitted again in March for chest pain rule out. In the clinic, patient was prescribed PRN torsemide for worsening SOB and LE edema. Has received monthly echos for monitoring of pericardial effusion. Last echo (06/11/17) showed a small effusion. Patient was due in clinic for another echo this Friday, but due to current symptoms, was advised to come into the ED for further cardiac evaluation. Denies any fever, chills, headache, URI symptoms, chest pain, SOB, abd pain. Nausea has improved and patient denies any episodes of vomiting or diarrhea in the ED. LE swelling has improved since PRN dose of torsemide, per patient. Did not take any of her morning medications 2/2 nausea. Past Medical/Surgical History Medical Problems: (1) Bronchiectasis Status: Chronic (2) GERD (gastroesophageal reflux disease) Status: Chronic (3) History of pancreatitis Status: Chronic (4) History of pericarditis Permanent Comment: November 2016. Suspected hemopericardium secondary to rivaroxaban. Status: Chronic (5) HLD (hyperlipidemia) Status: Chronic (6) Hypothyroidism Status: Chronic (7) Osteoarthritis Status: Chronic (8) Osteoporosis Status: Chronic (9) Paroxysmal atrial fibrillation Status: Chronic (10) Pericardial effusion Status: Chronic Surgical Problems: (1) H/O arthroscopic knee surgery Status: Chronic (2) H/O partial thyroidectomy Status: Chronic (3) History of appendectomy Status: Chronic (4) History of sinus surgery Status: Chronic (5) History of tonsillectomy Status: Chronic (6) History of tubal ligation Status: Chronic (7) Hx of cholecystectomy Status: Chronic (8) Status post atrioventricular brayan ablation Status: Chronic (9) Status post cardiac pacemaker procedure Status: Chronic Family History Patient reports no known family medical history. Social History Smoking Status: Unknown if Ever Smoked Alcohol Use: none Drug Use: none Housing status: lives alone Occupational Status: retired Immunizations History of Influenza Vaccine: Yes History of Tetanus Vaccine?: Yes Tetanus Immunization Date: Sep 16, 2008 History of Pneumococcal: Yes Pneumococcal Date: Jan 29, 2012 Allergies Coded Allergies: Iodinated Diagnostic Agents (Verified Allergy, Severe, ANAPHYLAXIS, ) Shellfish (Verified Allergy, Severe, "Seafood" -- ANAPHYLAXIS, 06/30/17) Erythromycin (Verified Allergy, Intermediate, RASH, 06/30/17) Simvastatin (Verified Allergy, Intermediate, RASH, 06/30/17) Celecoxib (Verified Allergy, Mild, RASH, 06/30/17) Nystatin (Verified Allergy, Mild, RASH, 06/30/17) Rivaroxaban (Verified Adverse Reaction, Severe, 0, 06/30/17) possivble hemorrhagic pericardial effusion Moxifloxacin (Verified Adverse Reaction, Intermediate, HALUCINATIONS, ) Home Medications Scheduled Aspirin (Aspirin Ec), 81 MG PO DAILY Biotin (Biotin), 5 MG PO 3XWK Calcium Citrate-Vitamin D (Calcium Citrate + D), 1 TAB PO DAILY Colchicine (Colchicine), 0.6 MG PO BID Flaxseed (Linseed) (Flax Seed Oil), 1,000 MG PO 3XWK Fluticasone Propionate (Nasal) (Flonase Allergy Relief), 1 SPRAY BERNICE QPM Levothyroxine Sodium (Levothyroxine Sodium), 100 MCG PO QAM Metoprolol Tartrate (Lopressor) (Lopressor), 25 MG PO BID Probiotic Product (Probiotic), 1 TAB PO DAILY Ranitidine (Zantac), 150 MG PO BID Rosuvastatin Calcium (Crestor), 5 MG PO 3XWK Sertraline (Zoloft), 100 MG PO HS Tiotropium [place] (Spiriva Handihaler), 1 CAP INH DAILY Scheduled PRN Torsemide (Torsemide), 1 TAB PO DAILY PRN for Shortness of Breath Review of Systems Ten systems reviewed and negative except as noted in the HPI. Physical Exam Vital Signs Date Time Temp Pulse Resp B/P (MAP) Pulse Ox O2 Delivery O2 Flow Rate FiO2 06/30/17 17:35 36.8 81 18 144/90 (108) 94 Room Air 06/30/17 16:48 76 20 143/88 92 Room Air 06/30/17 16:03 71 06/30/17 15:11 70 18 131/87 94 Room Air 06/30/17 13:55 80 18 124/82 94 Room Air 06/30/17 12:03 70 06/30/17 11:37 95 Room Air 06/30/17 11:37 36.6 80 18 139/89 95 Room Air General Appearance: WD/WN, no apparent distress Head: normocephalic, atraumatic Eyes: normal inspection, PERRL, sclerae normal ENT: normal ENT inspection, hearing grossly normal, pharynx normal (moist mucous membranes ) Neck: supple, thyroid normal, trachea midline Respiratory/Chest: chest non-tender, lungs clear, normal breath sounds, no respiratory distress, no accessory muscle use Cardiovascular: regular rate, rhythm, no murmur, normal peripheral pulses Abdomen/GI: non tender, soft, no organomegaly Extremities/Musculoskelatal: normal inspection, no calf tenderness, + pertinent finding (trace LE edema) Neurologic/Psych: no motor/sensory deficits, alert, normal mood/affect, oriented x 3 Skin: normal color, warm/dry Diagnostics Laboratory Results Results Past 24 Hours Test 06/30/17 12:10 06/30/17 12:51 06/30/17 14:21 06/30/17 16:02 Range/Units White Blood Count 9.73 4.8-10.8 K/uL Red Blood Count 4.84 4.2-5.4 M/uL Hemoglobin 13.9 12.0-16.0 g/dL Hematocrit 42.9 37-47 % Mean Corpuscular Volume 88.6 80-100 fL Mean Corpuscular Hemoglobin 28.7 25-34 pg Mean Corpuscular Hemoglobin Concent 32.4 32-36 g/dl Platelet Count 164 130-400 K/uL Mean Platelet Volume 10.2 7.4-10.4 fL Neutrophils (%) (Auto) 82.0 % Lymphocytes (%) (Auto) 9.7 % Monocytes (%) (Auto) 6.9 % Eosinophils (%) (Auto) 1.2 % Basophils (%) (Auto) 0.1 % Neutrophils # (Auto) 7.98 1.4-6.5 K/uL Lymphocytes # (Auto) 0.94 1.2-3.4 K/uL Monocytes # (Auto) 0.67 0.11-0.59 K/uL Eosinophils # (Auto) 0.12 0-0.5 K/uL Basophils # (Auto) 0.01 0-0.2 K/uL RDW Standard Deviation 48.7 36.4-46.3 fL RDW Coefficient of Variation 15.0 11.5-14.5 % Immature Granulocyte % (Auto) 0.1 % Immature Granulocyte # (Auto) 0.01 0.00-0.02 K/uL Sodium Level 139 136-145 mmol/L Potassium Level 4.1 3.5-5.1 mmol/L Chloride Level 108 98-107 mmol/L Carbon Dioxide Level 25 21-32 mmol/L Anion Gap 7.0 3-11 mmol/L Blood Urea Nitrogen 22 7-18 mg/dl Creatinine 0.83 0.60-1.20 mg/dl Est Creatinine Clear Calc Drug Dose 64.0 ml/min Estimated GFR () 78.8 Estimated GFR (Non- 68.0 BUN/Creatinine Ratio 26.7 10-20 Random Glucose 88 70-99 mg/dl Calcium Level 9.3 8.5-10.1 mg/dl Magnesium Level 2.5 1.8-2.4 mg/dl Total Bilirubin 0.5 0.2-1 mg/dl Aspartate Amino Transf (AST/SGOT) 15 15-37 U/L Alanine Aminotransferase (ALT/SGPT) 23 12-78 U/L Alkaline Phosphatase 62 45-117 U/L Total Creatine Kinase 60 26-192 U/L Creatine Kinase MB 1.7 0.5-3.6 ng/ml Creatine Kinase MB Ratio 2.8 0-3.0 Troponin I < 0.015 0-0.045 ng/ml Pro-B-Type Natriuretic Peptide 2564 0-1800 pg/ml Total Protein 7.2 6.4-8.2 gm/dl Albumin 3.9 3.4-5.0 gm/dl Globulin 3.3 2.5-4.0 gm/dl Albumin/Globulin Ratio 1.2 0.9-2 Thyroid Stimulating Hormone (TSH) 3.520 0.300-4.500 uIu/ml Free Thyroxine 1.11 0.80-1.60 ng/dl Urine Color YELLOW Urine Appearance CLOUDY CLEAR Urine pH 5.0 4.5-7.5 Urine Specific [place] 1.022 1.000-1.030 Urine Protein NEG NEG Urine Glucose (UA) NEG NEG Urine Ketones NEG NEG Urine Occult Blood 2+ NEG Urine Nitrite NEG NEG Urine Bilirubin NEG NEG Urine Urobilinogen NEG NEG Urine Leukocyte Esterase NEG NEG Urine WBC (Auto) 1-5 0-5 /hpf Urine RBC (Auto) 5-10 0-4 /hpf Urine Hyaline Casts (Auto) 1-5 0-5 /lpf Urine Epithelial Cells (Auto) >30 0-5 /lpf Urine Bacteria (Auto) NEG NEG Urine Crystals CALCIUM OXALATE NONE PRSENT Prothrombin Time 11.9 9.0-12.0 SECONDS Prothromb Time International Ratio 1.1 0.9-1.1 Activated Partial Thromboplast Time 25.0 21.0-31.0 SECONDS Partial Thromboplastin Ratio 1.0 Influenza Type A (RT-PCR) Neg for Influ A NEG Influenza Type B (RT-PCR) Neg for Influ B NEG Diagnostic Radiology CT head: IMPRESSION: No acute intracranial findings CXR: IMPRESSION: 1. Cardiomegaly, increased from prior. 2. Possible volume overload. 3. Bibasilar atelectasis. KUB: IMPRESSION: No evidence for bowel obstruction. EKG Ventricular-paced rhythm at 70 bpm. No change from prior EKG Impression Assessment and Plan This is a 76yo F with a PMH of paroxysmal A Fib, pericardial effusion ( diagnosed in February 2017), diastolic CHF, bronchiectasis, complete heart block ( s/p PM placement in November 2016), GERD and hypothyroidism who presents with worsening illness x 2 days. Viral gastroenteritis: -Sudden onset nausea, vomiting, diarrhea -Flu PCR negative -C diff, stool studies ordered -Symptoms have already improved -Anti-emetics PRN -Gentle IVF resuscitation in setting of CHF Pericardial effusion: -First diagnosed in February 2017 -Monthly echos to monitor; last echo (06/11) with small circumferential pericardial effusion -Cardiology consulted for repeat echo -Continue home dose colchicine BID Chronic diastolic HF: -Dry/euvolemic on exam -Hold PRN torsemide for now -CXR with cardiomegaly, BNP elevated likely 2/2 pericardial effusion -Consulted cardiology for further recs Paroxysmal A Fib: -Stable -Cont metoprolol -No anticoagulation in setting of hemopericardium in February -Monitor on tele Bronchiectasis: -Stable -Cont home inhalers GERD: -Cont ranitidine Hypothyroidism: -Cont levothyroxine -TSH, Free T4 wnl DVT Ppx: Code status: FULL PCP: Jerrell Dispo: Admitted to telemetry. Plan to return home once medically stable. Patient seen in collaboration with Dr. Voss. Please see addendum. Agree with above h and P.Briefly 76F with hx of pericardial effusion, diastolic chf. PAF and not on anticoagulation as pericardial effusion thought to be from anticoagulation. Patients pericardial effusion is decreasing and then increasing in size and there is plan for repeat echo but today patient had profuse vomiting and diarrhea and was worried because she had similar symptoms when she was first found to have pericardial effusion. Denies chest pain or sob. Currently resting comfortably and hemodynamically stable. Vomiting improved but has some dry heaves. Afebrile. 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 Y/N: Yes Risk Level: Moderate Given or contraindicated: Treatment not tolerated
[2017-06-30 19:48] VITALS: BP 116/74; PULSE 80; TEMP 36.7; O2SAT 94
[2017-06-30] MEDS: ACETAMINOPHEN 325 MG TAB PO PRN (19:51)
[2017-06-30] MEDS ORDERED: SPRIN/30 INH (20:41)
[2017-06-30] MEDS ORDERED: SERTRALINE HCL 100 MG TAB PO SCH (21:00)
[2017-06-30] MEDS ORDERED: [UNRECOGNIZED DRUG - REMARK] OP PRN (21:00)
[2017-06-30] MEDS ORDERED: ROSUVASTATIN CALCIUM 5 MG TAB PO SCH (21:00)
[2017-06-30] MEDS: COLCHICINE 0.6 MG TAB PO SCH (21:42)
[2017-06-30] MEDS: METOPROLOL TARTRATE 25 MG TAB PO SCH (21:43)
[2017-06-30] MEDS: RANITIDINE HCL 150 MG TAB PO SCH (21:43)
[2017-06-30 23:48] VITALS: BP 114/79; PULSE 70; TEMP 36.8; O2SAT 94
[2017-07-01] VITALS: O2SAT 94
[2017-07-01 04:00] VITALS: BP 106/67; PULSE 70; TEMP 36.8; O2SAT 93; O2SAT 94
[2017-07-01] MEDS: ACETAMINOPHEN 325 MG TAB PO PRN ×2 (04:17→14:04)
[2017-07-01 06:23] LABS: HEMATOCRIT 40.3 % (37-47); MEAN CORPUSCULAR HEMOGLOBIN 28.9 pg (25-34); MEAN CORPUSCULAR HGB CONC 31.8 g/dl (32-36); MEAN PLATELET VOLUME 10.1 fL (7.4-10.4); PLATELET COUNT 130 K/uL (130-400); RED BLOOD COUNT 4.43 M/uL (4.2-5.4); WHITE BLOOD COUNT 4.13 K/uL (4.8-10.8)
[2017-07-01 06:29] LABS: BUN/CREATININE RATIO 21.9 (10-20); CREATININE 0.78 mg/dl (0.60-1.20); INR 1.1 (0.9-1.1); MAGNESIUM 2.1 mg/dl (1.8-2.4); POTASSIUM 3.7 mmol/L (3.5-5.1)
[2017-07-01] MEDS ORDERED: LEVOTHYROXINE 100 MCG TAB PO SCH (06:30)
[2017-07-01] MEDS: ASPIRIN 81 MG ECTAB PO SCH (08:24)
[2017-07-01] MEDS: RANITIDINE HCL 150 MG TAB PO SCH (08:25)
[2017-07-01] MEDS: COLCHICINE 0.6 MG TAB PO SCH (08:25)
[2017-07-01 08:29] VITALS: BP 93/59; PULSE 70
[2017-07-01] MEDS: METOPROLOL TARTRATE 25 MG TAB PO SCH (08:30)
--- NOTE | 2017-07-01 08:36 | ECHOCARDIOGRAM REPORT ---
*NOTICE TO RECEIVING REPUBLICAN AGENCY This information is strictly Confidential and protected under [place] law. [place] law prohibits you from making any further disclosure of this information unless further disclosure is expressly permitted by the written consent of the person to whom it pertains or is authorized by law. A general authorization for the release of medical or other information is not sufficient for this purpose. Hospital accepts no responsibility if the information is made available to any other person, INCLUDING THE PATIENT. Interpretation Summary * Name: DAVIDE BARRIOS Study Date: 07/01/2017 06:38 AM BP: 106/67 mmHg * Patient Location: [facility]\S\N286\S\1 HR: 70 * : 1940 (M/d/yyyy) Gender: Female Height: 67 in * Age: 76 yrs Ethnicity: [place] Weight: 185 lb * Ordering Physician: Rochelle Healy * Referring Physician: Self, Referred * Performed By: Emma Knight RDCS * * Reason For Study: Pericardial effusion * BSA: 2.0 m2 * -- Conclusions -- * No significant change in pericardial effusion compared to previous study of 06/11/17. * Normal LV chamber with mild concentric LVH. * Normal LV systolic function, EF 60-65%. * No segmental left ventricular wall motion abnormalities are noted. * Grade II diastolic dysfunction. * Mild mitral 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. * Mild tricuspid 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. * Small circumferential pericardial effusion with a pocket of moderate effusion adjacent to the LV lateral wall. No hemodynamic significance. Procedure Details * A complete two-dimensional transthoracic echocardiogram was performed (2D, M-mode, Doppler and color flow Doppler). Left Ventricle * The left ventricle is normal in size. * There is mild concentric left ventricular hypertrophy. * Ejection Fraction = 60-65%. * No segmental left ventricular wall motion abnormalities are noted. * Left ventricular systolic function is normal. * The left ventricular wall motion is normal. Right Ventricle * The right ventricular cavity size is normal (basal dimension <4.2 cm in right ventricular apical 4-chamber view). * The right ventricular systolic function is normal as assessed by tricuspid annular plane systolic excursion (TAPSE) (normal >1.5 cm). Atria * The left atrium is severely dilated. * Right atrial size is normal. * No ASD detected; PFO is not assessed. Mitral Valve * The mitral valve anatomy is normal. * There is no mitral valve stenosis. * There is mild mitral 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. Tricuspid Valve * The tricuspid valve anatomy is normal. * There is no tricuspid stenosis. * There is mild tricuspid 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. Aortic Valve * The aortic valve is normal in structure and function. Pulmonic Valve * The pulmonary valve is not well seen, but the Doppler examination is normal without significant 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 or stenosis. Great Vessels * The aortic root and proximal ascending aorta are normal sized. Pericardium/Pleural * Small circumferential pericardial effusion with a pocket of moderate effusion adjacent to the LV lateral wall. No hemodynamic significance. Left Ventricular Diastolic Function * Diastolic dysfunction, Grade II (pseudonormalization pattern). MMode 2D Measurements and Calculations IVSd 1.1 cm LVIDd 4.0 cm LVIDs 2.5 cm LVPWd 1.4 cm IVS/LVPW 0.83 FS 37.0 % EDV(Teich) 69.4 ml ESV(Teich) 22.5 ml EF(Teich) 67.5 % EDV(cubed) 63.3 ml ESV(cubed) 15.8 ml EF(cubed) 75.0 % LV mass(C)d 176.0 grams LV mass(C)dI 90.0 grams/m\S\2 SV(Teich) 46.9 ml SI(Teich) 24.0 ml/m\S\2 SV(cubed) 47.5 ml SI(cubed) 24.3 ml/m\S\2 Ao root diam 2.6 cm Ao root area 5.4 cm\S\2 ACS 1.9 cm LA dimension 4.5 cm asc Aorta Diam 3.0 cm LA/Ao 1.7 LVOT diam 1.7 cm LVOT area 2.3 cm\S\2 LVAd ap4 17.1 cm\S\2 LVLd ap4 6.1 cm EDV(MOD-sp4) 39.0 ml EDV(sp4-el) 40.3 ml LVAs ap4 10.3 cm\S\2 LVLs ap4 5.7 cm ESV(MOD-sp4) 16.3 ml ESV(sp4-el) 16.0 ml EF(MOD-sp4) 58.2 % EF(sp4-el) 60.4 % LVAd ap2 19.9 cm\S\2 LVLd ap2 6.8 cm EDV(MOD-sp2) 49.7 ml EDV(sp2-el) 49.0 ml LVAs ap2 12.0 cm\S\2 LVLs ap2 6.3 cm ESV(MOD-sp2) 19.8 ml ESV(sp2-el) 19.5 ml EF(MOD-sp2) 60.1 % EF(sp2-el) 60.2 % LVLd %diff 10.5 % EDV(MOD-bp) 46.7 ml LVLs %diff 9.8 % ESV(MOD-bp) 19.0 ml EF(MOD-bp) 59.2 % SV(MOD-sp4) 22.7 ml SI(MOD-sp4) 11.6 ml/m\S\2 SV(MOD-sp2) 29.9 ml SI(MOD-sp2) 15.3 ml/m\S\2 SV(MOD-bp) 27.7 ml SI(MOD-bp) 14.2 ml/m\S\2 SV(sp4-el) 24.3 ml SI(sp4-el) 12.4 ml/m\S\2 SV(sp2-el) 29.5 ml SI(sp2-el) 15.1 ml/m\S\2 Doppler Measurements and Calculations MV E max balaji 89.7 cm/sec MV A max balaji 45.1 cm/sec MV E/A 2.0 MV dec time 0.20 sec Ao V2 max 120.2 cm/sec Ao max PG 5.8 mmHg Ao max PG (full) 2.4 mmHg SHANNAN(V,A) 1.8 cm\S\2 SHANNAN(V,D) 1.8 cm\S\2 LV V1 max PG 3.4 mmHg LV V1 max 92.2 cm/sec PA V2 max 92.3 cm/sec PA max PG 3.4 mmHg PA acc slope 639.6 cm/sec\S\2 PA acc time 0.10 sec TR max balaji 224.3 cm/sec PA pr(Accel) 34.6 mmHg
[2017-07-01] MEDS ORDERED: CALCIUM 600MG + VIT D 400 IU TAB PO SCH (09:00)
[2017-07-01] MEDS ORDERED: TIOTROPIUM BROMIDE INH SCH (09:00)
[2017-07-01] MEDS ORDERED: LACTOBACILLUS ACIDOPHILUS (FLORANEX) TAB PO SCH (09:00)
--- NOTE | 2017-07-01 10:33 | Cardiology Consultation ---
Cardiology Consultation Date of Service Jul 01, 2017. (Marichuy Carranza PA-C) Cardiology Consultation Requesting Provider: Rochelle Healy PA-C Attending Ux Design Manager: Dr. Stewart SUBJECTIVE: Patient is a 76 year old female who has a complex past history, well known to [facility]iology service. primary channel layer Dr. Gonzalez, [facility] 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 Coumadin was reinstated and unfortunately resulted in worsening of pericardial effusion in Mar 2017. Anticoagulation was subsequently stopped (except ASA). Later in Mar 2017, patient was readmitted to [facility] with recurrent chest pain. She was evaluated by Dr. Gonzalez as an inpatient. Cardiac enzymes were not significantly elevated. Symptoms resolved spontaneously. Echo revealed small pericardial effusion, improved from prior echo. She was discharged with instructions to continue prednisone taper and colchicine 0.6 mg BID. Prednisone taper ended and symptoms improved without recurrent chest pain. Repeat echo in May demonstrated mild increase in pericardial effusion without hemodynamic compromise. No symptoms reported. Colchicine was continued at 0.6 mg BID. Close f/u recommended. patient was to have f/u echo in the office this week. Last week patient noted mild worsening of LE edema with weight gain. She was instructed to take low dose torsemide x 3 doses. Unfortunately yesterday patient developed significant nausea, vomiting, diarrhea. Brought to ER for evaluation. Diagnosed with probable gastroenteritis. Symptoms improved with antiemetics and IV fluids. Cardiac enzymes unremarkable. She had updated 2D echocardiogram since admission which showed stable small circumferential pericardial effusion with pocket of moderate effusion to the LV lateral wall. This was unchanged compared to echo in [facility] on 06/11. At time of consult, patient feeling better. No recurrent nausea or vomiting. Was able to eat breakfast this AM. Still had several loose BM overnight and this AM, but improving. No recent or recurrent chest pain. She notes chronic dyspnea, which is unchanged. No dizziness. No palpitations. No orthopnea, PND. She had several days of edema, now improved. She is hoping to return home today. Review of Systems: See HPI for pertinent positives. All other 10 point review of systems is negative. 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 Cardiac pacemaker in situ CHB (complete heart block) Pericardial effusion Chronic diastolic congestive heart failure Medical Problems: (1) Bronchiectasis (2) GERD (gastroesophageal reflux disease) (3) History of pancreatitis (4) History of pericarditis (5) HLD (hyperlipidemia) (6) Hypothyroidism (7) Osteoarthritis (8) Osteoporosis (9) Paroxysmal atrial fibrillation (10) Pericardial effusion Surgical Problems: (1) H/O arthroscopic knee surgery (2) H/O partial thyroidectomy (3) History of appendectomy (4) History of sinus surgery (5) History of tonsillectomy (6) History of tubal ligation (7) Hx of cholecystectomy (8) Status post atrioventricular brayan ablation (9) Status post cardiac pacemaker procedure Social History Substance Use Topics Smoking status: Never Smoker Smokeless tobacco: Never Used Comment: passive exposures in past from parents/spouse Alcohol use Yes Comment: 1 glass of wine a month Family History: Non contributory Review of patient's allergies indicates: Allergen Reactions Iodinated Diagnostic Agents Anaphylaxis Avelox [Moxifloxacin Hcl In Nacl] Hallucinations Celebrex [Celecoxib] Rash Erythromycin Rash Nystatin Rash Omeprazole Diarrhea, hair loss, abdominal bloating Simvastatin Rash Can tolerate Crestor Sulfa Antibiotics Nausea/vomiting Current Outpatient Prescriptions Reported Home Medications Medications Dose Route/Sig Max Daily Dose Days Date Category Dose Instructions Spiriva Handihaler (Tiotropium [place]) 30 Puff/540 Mcg Aerp 1 Cap INH DAILY 06/30/17 Reported Torsemide 5 Mg Tab 1 Tab PO DAILY PRN 06/30/17 Reported Aspirin Ec (Aspirin) 81 Mg Tab 81 Mg PO DAILY 04/03/17 Reported Lopressor (Metoprolol Tartrate) 25 Mg Tab 25 Mg PO BID 04/03/17 Reported Colchicine 0.6 Mg Tab 0.6 Mg PO BID 03/25/17 Reported Flax Seed Oil (Flaxseed (Linseed)) 1,000 Mg Cap 1,000 Mg PO 3XWK 02/28/17 Reported Flonase Allergy Relief (Fluticasone Propionate (Nasal)) 50 Mcg/Act Spr 1 [place] BERNICE QPM 02/21/17 Reported Calcium Citrate + D (Calcium Citrate-Vitamin D) 1 Tab Tab 1 Tab PO DAILY 11/13/16 Reported Probiotic (Probiotic Product) 1 Tab Tab 1 Tab PO DAILY 09/17/16 Reported FRIDAY, FRIDAY, FRIDAY Biotin 5 Mg Tab 5 Mg PO 3XWK 12/15/15 Reported TAKES FRIDAY/FRIDAY/FRIDAY Zoloft (Sertraline HCl) 100 Mg Tab 100 Mg PO HS 11/27/15 Reported Zantac (Ranitidine HCl) 150 Mg Tab 150 Mg PO BID 30 11/27/15 Reported Levothyroxine Sodium 100 Mcg Tab 100 Mcg PO QAM 11/27/15 Reported Crestor (Rosuvastatin Calcium) 5 Mg Tab 5 Mg PO 3XWK 11/27/15 Reported EVERY FRIDAY/FRIDAY/FRIDAY OBJECTIVE/PHYSICAL EXAMINATION: Last 8 Hrs Date Time Temp Pulse Resp B/P (MAP) Pulse Ox O2 Delivery O2 Flow Rate FiO2 07/01/17 08:29 70 93/59 (70) 07/01/17 04:00 36.8 70 20 106/67 (80) 93 Room Air 07/01/17 04:00 94 Room Air General: NAD, AAO x3, well nourished. HEENT: Normocephalic. Atraumatic. Conjunctiva pink, no scleral icterus. No carotid bruits, the carotid upstrokes are brisk. + JVD. No HJR Heart: Regular normal S-1 and S-2 no S-3 or S-4 gallop. PMI is not displaced. No RV heave. Lungs: Faint bibasilar rales b/l. Abdomen: Normal bowel sounds. Soft. Nontender. No masses or organomegaly. No abdominal bruits. Extremities: No clubbing, cyanosis, or edema. Pulses: radial=2 /4, Dorsalis pedis =2/4, posterior tibial=2/4. Neuro: No focal deficits. Labs reviewed: Last 24 Hours Test 06/30/17 12:10 06/30/17 12:51 06/30/17 14:21 06/30/17 16:02 White Blood Count 9.73 K/uL Red Blood Count 4.84 M/uL Hemoglobin 13.9 g/dL Hematocrit 42.9 % Mean Corpuscular Volume 88.6 fL Mean Corpuscular Hemoglobin 28.7 pg Mean Corpuscular Hemoglobin Concent 32.4 g/dl Platelet Count 164 K/uL Mean Platelet Volume 10.2 fL Neutrophils (%) (Auto) 82.0 % Lymphocytes (%) (Auto) 9.7 % Monocytes (%) (Auto) 6.9 % Eosinophils (%) (Auto) 1.2 % Basophils (%) (Auto) 0.1 % Neutrophils # (Auto) 7.98 K/uL Lymphocytes # (Auto) 0.94 K/uL Monocytes # (Auto) 0.67 K/uL Eosinophils # (Auto) 0.12 K/uL Basophils # (Auto) 0.01 K/uL RDW Standard Deviation 48.7 fL RDW Coefficient of Variation 15.0 % Immature Granulocyte % (Auto) 0.1 % Immature Granulocyte # (Auto) 0.01 K/uL Sodium Level 139 mmol/L Potassium Level 4.1 mmol/L Chloride Level 108 mmol/L Carbon Dioxide Level 25 mmol/L Anion Gap 7.0 mmol/L Blood Urea Nitrogen 22 mg/dl Creatinine 0.83 mg/dl Est Creatinine Clear Calc Drug Dose 64.0 ml/min Estimated GFR () 78.8 Estimated GFR (Non- 68.0 BUN/Creatinine Ratio 26.7 Random Glucose 88 mg/dl Calcium Level 9.3 mg/dl Magnesium Level 2.5 mg/dl Total Bilirubin 0.5 mg/dl Aspartate Amino Transf (AST/SGOT) 15 U/L Alanine Aminotransferase (ALT/SGPT) 23 U/L Alkaline Phosphatase 62 U/L Total Creatine Kinase 60 U/L Creatine Kinase MB 1.7 ng/ml Creatine Kinase MB Ratio 2.8 Troponin I < 0.015 ng/ml Pro-B-Type Natriuretic Peptide 2564 pg/ml Total Protein 7.2 gm/dl Albumin 3.9 gm/dl Globulin 3.3 gm/dl Albumin/Globulin Ratio 1.2 Thyroid Stimulating Hormone (TSH) 3.520 uIu/ml Free Thyroxine 1.11 ng/dl Urine Color YELLOW Urine Appearance CLOUDY Urine pH 5.0 Urine Specific [place] 1.022 Urine Protein NEG Urine Glucose (UA) NEG Urine Ketones NEG Urine Occult Blood 2+ Urine Nitrite NEG Urine Bilirubin NEG Urine Urobilinogen NEG Urine Leukocyte Esterase NEG Urine WBC (Auto) 1-5 /hpf Urine RBC (Auto) 5-10 /hpf Urine Hyaline Casts (Auto) 1-5 /lpf Urine Epithelial Cells (Auto) >30 /lpf Urine Bacteria (Auto) NEG Urine Crystals CALCIUM OXALATE Prothrombin Time 11.9 SECONDS Prothromb Time International Ratio 1.1 Activated Partial Thromboplast Time 25.0 SECONDS Partial Thromboplastin Ratio 1.0 Influenza Type A (RT-PCR) Neg for Influ A Influenza Type B (RT-PCR) Neg for Influ B Test 07/01/17 05:40 White Blood Count 4.13 K/uL Red Blood Count 4.43 M/uL Hemoglobin 12.8 g/dL Hematocrit 40.3 % Mean Corpuscular Volume 91.0 fL Mean Corpuscular Hemoglobin 28.9 pg Mean Corpuscular Hemoglobin Concent 31.8 g/dl RDW Standard Deviation 50.4 fL RDW Coefficient of Variation 15.1 % Platelet Count 130 K/uL Mean Platelet Volume 10.1 fL Prothrombin Time 12.0 SECONDS Prothromb Time International Ratio 1.1 Sodium Level 140 mmol/L Potassium Level 3.7 mmol/L Chloride Level 107 mmol/L Carbon Dioxide Level 27 mmol/L Anion Gap 6.0 mmol/L Blood Urea Nitrogen 17 mg/dl Creatinine 0.78 mg/dl Est Creatinine Clear Calc Drug Dose 68.7 ml/min Estimated GFR () 85.0 Estimated GFR (Non- 73.3 BUN/Creatinine Ratio 21.9 Random Glucose 102 mg/dl Calcium Level 8.0 mg/dl Magnesium Level 2.1 mg/dl Total Bilirubin 0.5 mg/dl Aspartate Amino Transf (AST/SGOT) 18 U/L Alanine Aminotransferase (ALT/SGPT) 23 U/L Alkaline Phosphatase 58 U/L Total Protein 6.3 gm/dl Albumin 3.2 gm/dl Globulin 3.1 gm/dl Albumin/Globulin Ratio 1.0 Current Admission Data Reviewed: 2D echocardiogram report reviewed: * -- Conclusions -- * No significant change in pericardial effusion compared to previous study of 06/11/17. * Normal LV chamber with mild concentric LVH. * Normal LV systolic function, EF 60-65%. * No segmental left ventricular wall motion abnormalities are noted. * Grade II diastolic dysfunction. * Mild mitral 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. * Mild tricuspid 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. * Small circumferential pericardial effusion with a pocket of moderate effusion adjacent to the LV lateral wall. No hemodynamic significance. EKG on admission: Ventricular paced rhythm, unchanged from previous EKG repeat - ventricular paced rhythm, unchanged. KUB Xray: no evidence of bowel obstruction Head CT: No acute findings Chest Xray: IMPRESSION: 1. Cardiomegaly, increased from prior. 2. Possible volume overload. 3. Bibasilar atelectasis. Prior Data Reviewed: Limited 2D echocardiogram performed 06/11/17: Interpretation Summary The primary indication after review was deemed appropriate and the examination was performed. Compared to last available study changes are noted as follows: pericardial effusion has increased. Small circumferential pericardial effusion with a pocket of moderate effusion adjacent to the LV lateral wall. No hemodynamic significance. Limited 2D echocardiogram performed 05/07/17: The primary indication after review was deemed appropriate and the examination was performed. Trace circumferential pericardial effusion with a pocket of mild effusion adjacent to the LV lateral wall. No hemodynamic significance. Limited 2D echocardiogram dated April 16, 2017 reviewed A focused limited study was performed in follow-up of pericarditis. There is a trace to small loculated pericardial effusion with most significant amount of fluid adjacent to the right ventricular free wall on the subcostal images, and the left ventricular lateral wall on the apical 4 images. Tamponade physiology is absent. Compared to the images the prior study dated 03/25/2017, there has been an interval improvement in the pericardial effusion. 2D echo report, reviewed, dated 04/03/17 at [facility]: Ejection fraction = 60-65% The left ventricular wall motion is normal The left atrium is severely dilated Small loculated lateral and posterior lateral pericardial effusion. There is trace amount of pericardial fluid adjacent to the right ventricle. There are no echocardiographic indications of cardiac tamponade Compared to prior study pericardial effusion is smaller 2D transthoracic ECHO report February,: A small (<5 mm) circumferential pericardial effusion is noted. There is a larger collection of fluid around the right ventricle. It is unchanged from the previous study. There was no respiratory variation of the mitral inflow signal to suggest tamponade physiology. Arterial Dopplers B/L LE report 03/27/16: JANETTE at rest is 1.15 on the right and 1.06 on the left. Waveform analysis is consistent with normal for the bilateral lower extremity with no evidence of significant peripheral arterial occlusive disease. 24 hour Holter report 12/2015: 1. Duration - 24 hours 2. Quality - good 3. Dominant rhythm - sinus 4. PAC's - occasional 5. PVC's - Rare The rhythm throughout the monitoring period was sinus. Occasional PAC's including multiple short salvos of nonsustained supraventricular tachycardia. Patient's symptoms of palpitations correlated with nonsustained supraventricular tachycardia. No sustained arrhythmias. Exercise Stress Echo report 03/2015: The low heart rate response to stress reduces the sensitivity of this test for the detection of coronary artery disease or ischemia. No ECG or echocardiographic evidence of ischemia at 77% of the maximum, age predicted heart rate. Resting study: The qualitative LV ejection fraction is 60-64% (normal). The left atrium is moderately enlarged. The left ventricular diastolic function is moderately abnormal (grade II). No significant valvular disease is present. 24 hour Holter report 03/22/2015: The patient was scanned for total 24 hr. The indication is atrial fibrillation. The telemetry is of good quality. The predominant rhythm is normal sinus with an average heart rate of 58 beats per min. The heart rate ranged from 43 beats per min to 91 beats per min. There were rare PVC's. Rare to occasional premature atrial contractions. There were 23 runs of PAT ranging from 4-15 beats. Patient events seem to correlate to premature atrial contractions and PAT. Carotid Duplex report 03/30/15: Right carotid artery duplex examination indicates evidence of less than 50% stenosis of the internal carotid Artery. Left carotid artery duplex examination indicates evidence of a less than 50% stenosis of the internal carotid artery. ASSESSMENT: 76 year old female 1. N/V/D secondary to viral gastroenteritis 2. history of Pericardial effusion, stable findings, small without hemodynamic compromise. Unchanged from May 2017. 3. chronic dyspnea - unchanged. 4. History of diastolic HF - PRN torsemide. Appears euvolemic. 5. History of pericarditis, no clinical symptoms. 6. Persistent atrial fibrillation s/p AV junction ablation and PPM implantation on 11/2016. No longer on anticoagulants due to presumed hemorrhagic pericardial effusion on Xarelto, and worsening effusion on Coumadin. PLAN: Symptoms improving. Supportive care recommended for likely gastroenteritis. Stable findings on echo with small pericardial effusion. Would continue colchicine. No further cardiac testing warranted at this time. Continue same cardiac medications. Keep f/u as scheduled in July with Dr. Gonzalez. Case discussed with Dr. Stewart (Marichuy Carranza PAAbby) Cardiology attending: Pt seen and examined, agree with findings and assessment as per Marichuy Aceves. Pt with viral gastroenteritis and stable pericardial effusion. Cont colchicine, no pain so no need to add ibuprofen. F/u as scheduled as outpatient. (Sam Stewart, D.O.)
[2017-07-01 11:10] VITALS: BP 97/63; PULSE 77; TEMP 37.1; O2SAT 93
--- NOTE | 2017-07-01 13:38 | Progress Note ---
Medicine Progress Note Date & Time of Visit: Jul 01, 2017 at 13:21. Subjective Pt was seen and examined Lying in bed with no distress Pt said that she is feeling much better She said that she feels fine She said that she had a very small diarrhea early this morning Denies any chest pain, palpitation, dizziness Objective Last 8 Hrs Date Time Temp Pulse Resp B/P (MAP) Pulse Ox O2 Delivery O2 Flow Rate FiO2 07/01/17 12:37 Room Air 07/01/17 11:10 37.1 77 20 97/63 (74) 93 07/01/17 08:45 Room Air 07/01/17 08:29 70 93/59 (70) Physical Exam: General- No acute distress Head- atraumatic Eyes- PERRL, EOMI ENT- oropharynx clear Neck- supple, no JVD Lungs- clear to auscultation Heart- regular rhythm Abdomen- normal bowel sounds, soft Extremities- no pretibial edema Neuro- alert, oriented x 3; PERRL Skin- warm & dry Laboratory Results: Last 24 Hours Test 06/30/17 14:21 06/30/17 16:02 07/01/17 05:40 Prothrombin Time 11.9 SECONDS 12.0 SECONDS Prothromb Time International Ratio 1.1 1.1 Activated Partial Thromboplast Time 25.0 SECONDS Partial Thromboplastin Ratio 1.0 Influenza Type A (RT-PCR) Neg for Influ A Influenza Type B (RT-PCR) Neg for Influ B White Blood Count 4.13 K/uL Red Blood Count 4.43 M/uL Hemoglobin 12.8 g/dL Hematocrit 40.3 % Mean Corpuscular Volume 91.0 fL Mean Corpuscular Hemoglobin 28.9 pg Mean Corpuscular Hemoglobin Concent 31.8 g/dl RDW Standard Deviation 50.4 fL RDW Coefficient of Variation 15.1 % Platelet Count 130 K/uL Mean Platelet Volume 10.1 fL Sodium Level 140 mmol/L Potassium Level 3.7 mmol/L Chloride Level 107 mmol/L Carbon Dioxide Level 27 mmol/L Anion Gap 6.0 mmol/L Blood Urea Nitrogen 17 mg/dl Creatinine 0.78 mg/dl Est Creatinine Clear Calc Drug Dose 68.7 ml/min Estimated GFR () 85.0 Estimated GFR (Non- 73.3 BUN/Creatinine Ratio 21.9 Random Glucose 102 mg/dl Calcium Level 8.0 mg/dl Magnesium Level 2.1 mg/dl Total Bilirubin 0.5 mg/dl Aspartate Amino Transf (AST/SGOT) 18 U/L Alanine Aminotransferase (ALT/SGPT) 23 U/L Alkaline Phosphatase 58 U/L Total Protein 6.3 gm/dl Albumin 3.2 gm/dl Globulin 3.1 gm/dl Albumin/Globulin Ratio 1.0 Date/Time Source Procedure Growth Status 06/30/17 22:05 Stool Shiga Toxin Test Pending Received 06/30/17 22:05 Stool Stool Culture Pending Received 06/30/17 22:05 Stool C.difficile Toxin B Gene (PCR) - Final No C. difficile toxin B gene detected Complete Assessment & Plan Gastroenteritis Present on admission with nausea, vomiting and diarrhea Possible viral etiology Tolerated diet Clinically improved significantly Pericardial effusion Diagnosed in February 2017 Has been monitor with ECHO Continue home dose colchicine BID Follow up with cardiology dr. Gonzalez ECHO showed * No significant change in pericardial effusion compared to previous study of 06/11/17. * Normal LV chamber with mild concentric LVH. * Normal LV systolic function, EF 60-65%. * No segmental left ventricular wall motion abnormalities are noted. * Grade II diastolic dysfunction. * Mild mitral 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. * Mild tricuspid 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. * Small circumferential pericardial effusion with a pocket of moderate effusion adjacent to the LV lateral wall. No hemodynamic significance. Chronic diastolic HF: BNP on admission was elevated possible related to pericardial effusion CXR showed cardiomegaly with possible fluid overload Case discussed with cardiology recommended to continue torsemide as needed Follow up with cardiology Paroxysmal A Fib: Rate controlled Cont metoprolol Not on anticoagulation due to hx of hemopericardium in February Stable Bronchiectasis Cont home inhalers Stable GERD: Cont ranitidine Hypothyroidism: Cont levothyroxine Stable DVT PX SCDs CODE STATUS FULL CODE Consultants: Cardio Current Inpatient Medications: Current Inpatient Medications Medications (Trade) Dose Ordered Sig/Amauri Route Start Time Stop Time Status Last Admin Dose Admin Acetaminophen (Tylenol Tab) 650 mg Q4H PRN PO 06/30/17 16:45 07/30/17 16:44 07/01/17 04:17 650 MG Aspirin (Ecotrin Tab) 81 mg DAILY PO 06/30/17 18:00 07/30/17 17:59 07/01/17 08:24 81 MG Colchicine (Colchicine Tab) 0.6 mg BID PO 06/30/17 21:00 07/30/17 20:59 07/01/17 08:25 0.6 MG Levothyroxine Sodium (Synthroid Tab) 100 mcg DAILYBB PO 07/01/17 06:30 07/31/17 06:29 07/01/17 05:50 100 MCG Metoprolol Tartrate (Lopressor Tab) 25 mg BID PO 06/30/17 21:00 07/30/17 20:59 06/30/17 21:43 25 MG Ranitidine HCl (zANTac TAB) 150 mg BID PO 06/30/17 21:00 07/30/17 20:59 07/01/17 08:25 150 MG Rosuvastatin Calcium (Crestor Tab) 5 mg MoWeFr@HS PO 06/30/17 21:00 07/30/17 20:59 06/30/17 21:43 5 MG Sertraline HCl (Zoloft Tab) 100 mg HS PO 06/30/17 21:00 07/30/17 20:59 06/30/17 21:43 100 MG Calcium/Vitamin D (Caltrate Plus Tab) 1 tab DAILY PO 07/01/17 09:00 07/31/17 08:59 07/01/17 08:23 1 TAB Lactobacillus Acidophilus (Floranex Tab) 1 tab DAILY PO 07/01/17 09:00 07/31/17 08:59 07/01/17 08:24 1 TAB Ondansetron HCl (Zofran Inj) 2 mg Q6H PRN IV 06/30/17 19:00 07/30/17 16:44 Miscellaneous (Iv Fluids Completed) 1 ea PRN PRN N/A 06/30/17 19:15 06/30/18 19:14 Tiotropium [place] (Spiriva Handihaler Inhaler) 1 puff QAM INH 07/01/17 09:00 07/31/17 08:59 07/01/17 08:23 1 PUFF Fluticasone Propionate (Flonase Nasal [place]) 1 sprays QPM BERNICE 06/30/17 21:00 07/30/17 20:59 06/30/17 21:40 1 SPRAYS Non-Formulary Medication (Non-Formulary Patient'S Own Med) 1 ea PRN PRN OP 06/30/17 21:00 07/30/17 20:59
[2017-07-01 14:38] VITALS: BP 96/58; PULSE 75; TEMP 37.3; O2SAT 96
--- NOTE | 2017-07-01 16:44 | Discharge Instructions ---
Discharge Instructions Date of Service Jul 01, 2017. Admission Reason for Admission: Gastroenteritis, Pericardial Effusion Discharge Discharge Diagnosis / Problem: Gastroenteritis/Pericardial effusion/P. Afib Discharge Goals Goal(s): Decrease discomfort, Improve function, Improve disease control Activity Recommendations Activity Limitations: resume your previous activity (as tolerated) . Instructions / Follow-Up Instructions / Follow-Up Follow up with your Primary care provider Dr. Allan on 07/04 @ 9:35 AM Follow up with cardiology Dr. Gonzalez Current Hospital Diet Patient's current hospital diet: Low Sodium Diet (2gm Na) Discharge Diet Recommended Diet: Low Sodium Diet (2gm Na) Pending Studies Studies pending at discharge: no Medical Emergencies . Who to Call and When: Medical Emergencies: If at any time you feel your situation is an emergency, please call 911 immediately. . Non-Emergent Contact Non-Emergency issues call your: Primary Care Provider . . "Provider Documentation" section prepared by Lili Jarvis. . VTE Core Measure Inpt VTE Proph given/why not?: Treatment not tolerated
[2017-07-01 16:52] VITALS: BP 96/58; PULSE 75; TEMP 37.3; O2SAT 96
--- NOTE | 2017-07-02 08:08 | Discharge Summary ---
Discharge Summary Date of Service Jul 02, 2017. Discharge Summary Admission Date: Jun 30, 2017 at 16:36 Discharge Date: Jul 01, 2017 Discharge Disposition: Home Principal Diagnosis: Gastroenteritis Secondary Diagnoses/Problems: Pericardial effusion P. Afib Chronic diastolic HF Bronchiectasis Procedures: CT HEAD WITHOUT CONTRAST (CT) CLINICAL HISTORY: Headache COMPARISON STUDY: No previous studies for comparison. TECHNIQUE: Axial CT of the brain is performed from the vertex to the skull base. IV contrast was not administered for this examination. A dose lowering technique was utilized adhering to the principles of ALARA. CT DOSE: 729.78 mGycm FINDINGS: No intra or extra-axial mass lesions are visualized. There is no CT evidence of acute cortical infarction. There is no evidence of midline shift. There is no acute hemorrhage. No calvarial fractures are visualized. There are minor white matter hypodensities likely on a small vessel basis. There is no evidence of pathologic ventricular dilatation. There is mild left maxillary sinus mucosal thickening. IMPRESSION: No acute intracranial findings Electronically signed by: Jagdeep Thayer M.D. 06/30/2017 1:49 PM Dictated Date/Time: 06/30/2017 1:48 PM [~ rep ct add3]] CHEST ONE VIEW PORTABLE CLINICAL HISTORY: 76 years-old Female presenting with EVALUATE RESPIRATORY DISTRESS.DYSPNEA. TECHNIQUE: Portable supine AP view of the chest was obtained. COMPARISON: 04/03/2017. FINDINGS: Left subclavian pacer with leads in the right atrium and right ventricular apex. Cardiac silhouette enlarged, increased from prior. Prominence of upper lobe pulmonary vasculature. Minimal bandlike opacities at the lung bases bilaterally. No large effusion or pneumothorax. Osseous structures normal. Upper abdomen normal. IMPRESSION: 1. Cardiomegaly, increased from prior. 2. Possible volume overload. 3. Bibasilar atelectasis. Electronically signed by: Jean Rashid M.D. 06/30/2017 12:59 PM Dictated Date/Time: 06/30/2017 12:57 PM KUB HISTORY: vomiting COMPARISON: None. FINDINGS: The bowel gas pattern is unremarkable. There are no dilated loops of small bowel to suggest an obstruction. No renal calculi. No ureteral calculi. Calcifications in the deep pelvis likely represent phleboliths. No pneumoperitoneum or pneumatosis. Cholecystectomy. Pacemaker wires are noted. Linear density left lung base favor subsegmental atelectasis or scarring. The heart is mildly enlarged. IMPRESSION: No evidence for bowel obstruction. Electronically signed by: Chin Chu M.D. 06/30/2017 12:41 PM Dictated Date/Time: 06/30/2017 12:39 PM ECHO Interpretation Summary * Name: DAVIDE BARRIOS Study Date: 07/01/2017 06:38 AM BP: 106/67 mmHg * Patient Location: [facility]\\S\\1 HR: 70 * : 1940 (M/d/yyyy) Gender: Female Height: 67 in * Age: 76 yrs Ethnicity: [place] Weight: 185 lb * Ordering Physician: Rochelle Healy * Referring Physician: Self, Referred * Performed By: Emma Knight RDCS * * Reason For Study: Pericardial effusion * BSA: 2.0 m2 * -- Conclusions -- * No significant change in pericardial effusion compared to previous study of 06/11/17. * Normal LV chamber with mild concentric LVH. * Normal LV systolic function, EF 60-65%. * No segmental left ventricular wall motion abnormalities are noted. * Grade II diastolic dysfunction. * Mild mitral 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. * Mild tricuspid 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. * Small circumferential pericardial effusion with a pocket of moderate effusion adjacent to the LV lateral wall. No hemodynamic significance. Procedure Details * A complete two-dimensional transthoracic echocardiogram was performed (2D, M-mode, Doppler and color flow Doppler). Left Ventricle * The left ventricle is normal in size. * There is mild concentric left ventricular hypertrophy. * Ejection Fraction = 60-65%. * No segmental left ventricular wall motion abnormalities are noted. * Left ventricular systolic function is normal. * The left ventricular wall motion is normal. Right Ventricle * The right ventricular cavity size is normal (basal dimension <4.2 cm in right ventricular apical 4-chamber view). * The right ventricular systolic function is normal as assessed by tricuspid annular plane systolic excursion (TAPSE) (normal >1.5 cm). Atria * The left atrium is severely dilated. * Right atrial size is normal. * No ASD detected; PFO is not assessed. Mitral Valve * The mitral valve anatomy is normal. * There is no mitral valve stenosis. * There is mild mitral 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. Tricuspid Valve * The tricuspid valve anatomy is normal. * There is no tricuspid stenosis. * There is mild tricuspid 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. Aortic Valve * The aortic valve is normal in structure and function. Pulmonic Valve * The pulmonary valve is not well seen, but the Doppler examination is normal without significant 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 or stenosis. Great Vessels * The aortic root and proximal ascending aorta are normal sized. Pericardium/Pleural * Small circumferential pericardial effusion with a pocket of moderate effusion adjacent to the LV lateral wall. No hemodynamic significance. Left Ventricular Diastolic Function * Diastolic dysfunction, Grade II (pseudonormalization pattern). Consultations: Cardio Medication Reconciliation Continued Medications: Aspirin (Aspirin Ec) 81 Mg Tab 81 MG PO DAILY Biotin (Biotin) 5 Mg Tab 5 MG PO 3XWK TAKES FRIDAY/FRIDAY/FRIDAY Calcium Citrate-Vitamin D (Calcium Citrate + D) 1 Tab Tab 1 TAB PO DAILY Colchicine (Colchicine) 0.6 Mg Tab 0.6 MG PO BID, TAB Flaxseed (Linseed) (Flax Seed Oil) 1,000 Mg Cap 1000 MG PO 3XWK Fluticasone Propionate (Nasal) (Flonase Allergy Relief) 50 Mcg/Act Spr 1 SPRAY BERNICE QPM Levothyroxine Sodium (Levothyroxine Sodium) 100 Mcg Tab 100 MCG PO QAM Metoprolol Tartrate (Lopressor) (Lopressor) 25 Mg Tab 25 MG PO BID, TAB Probiotic Product (Probiotic) 1 Tab Tab 1 TAB PO DAILY FRIDAY, FRIDAY, FRIDAY Ranitidine (Zantac) 150 Mg Tab 150 MG PO BID for 30 Days, #60 TAB 3 Refills Rosuvastatin Calcium (Crestor) 5 Mg Tab 5 MG PO 3XWK, TAB 5 Refills EVERY FRIDAY/FRIDAY/FRIDAY Sertraline (Zoloft) 100 Mg Tab 100 MG PO HS Tiotropium [place] (Spiriva Handihaler) 30 Puff/540 Mcg Aerp 1 CAP INH DAILY, INHALER Torsemide (Torsemide) 5 Mg Tab 1 TAB PO DAILY PRN for Shortness of Breath Admission Information HPI (per Admitting provider): This is a 76yo F with a PMH of paroxysmal A Fib, pericardial effusion ( diagnosed in February 2017), diastolic CHF, bronchiectasis, complete heart block ( s/p PM placement in November 2016), GERD and hypothyroidism who presents with worsening illness x 2 days. Patient states that she started to "feel bad" yesterday, endorsing dull headache, palpitations and fatigue. Woke up today and noted a 3lb weight gain as well as bilateral LE edema. Denies any SOB or chest pain. Took her PRN torsemide dose around 10am. About an hour later patient experienced sudden onset nausea, vomiting and diarrhea. Endorses 3 episodes of vomiting and 4 episodes of diarrhea by the time she presented in the ED for further evaluation. During February admission, patient presented with similar symptoms and was diagnosed with a pericardial effusion. [place] to have possible hemopericardium 2/ 2 Xarelto, which was then discontinued. Patient started on colchicine and prednisone and transferred to [facility] [place]. No surgical intervention was needed. Was readmitted later in February with SOB and CXR showed bilateral pleural effusions. Echo (03/02/17) showed diastolic dysfunction with preserved EF as well as small pericardial effusion without tamponade. Improved with diuretics and was discharged home with close cardiology follow-up (Carlos ). In cardiac clinic on 03/25, patient was found to have a moderate pericardial effusion and was readmitted to [facility]. Colchicine was continued and received a steroid taper upon discharge. Was admitted again in March for chest pain rule out. In the clinic, patient was prescribed PRN torsemide for worsening SOB and LE edema. Has received monthly echos for monitoring of pericardial effusion. Last echo (06/11/17) showed a small effusion. Patient was due in clinic for another echo this Friday, but due to current symptoms, was advised to come into the ED for further cardiac evaluation. Denies any fever, chills, headache, URI symptoms, chest pain, SOB, abd pain. Nausea has improved and patient denies any episodes of vomiting or diarrhea in the ED. LE swelling has improved since PRN dose of torsemide, per patient. Did not take any of her morning medications 2/2 nausea. Physical Exam (per Admitting): General Appearance: WD/WN, no apparent distress Head: normocephalic, atraumatic Eyes: normal inspection, PERRL, sclerae normal ENT: normal ENT inspection, hearing grossly normal, pharynx normal (moist mucous membranes ) Neck: supple, thyroid normal, trachea midline Respiratory/Chest: chest non-tender, lungs clear, normal breath sounds, no respiratory distress, no accessory muscle use Cardiovascular: regular rate, rhythm, no murmur, normal peripheral pulses Abdomen/GI: non tender, soft, no organomegaly Extremities/Musculoskelatal: normal inspection, no calf tenderness, + pertinent finding (trace LE edema) Neurologic/Psych: no motor/sensory deficits, alert, normal mood/affect, oriented x 3 Skin: normal color, warm/dry Hospital Course Gastroenteritis Present on admission with nausea, vomiting and diarrhea Possible viral etiology Tolerated diet Clinically improved significantly Pericardial effusion Diagnosed in February 2017 Has been monitor with ECHO Continue home dose colchicine BID Follow up with cardiology dr. Gonzalez ECHO showed * No significant change in pericardial effusion compared to previous study of 06/11/17. * Normal LV chamber with mild concentric LVH. * Normal LV systolic function, EF 60-65%. * No segmental left ventricular wall motion abnormalities are noted. * Grade II diastolic dysfunction. * Mild mitral 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. * Mild tricuspid 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. * Small circumferential pericardial effusion with a pocket of moderate effusion adjacent to the LV lateral wall. No hemodynamic significance. Chronic diastolic HF: BNP on admission was elevated possible related to pericardial effusion CXR showed cardiomegaly with possible fluid overload Case discussed with cardiology recommended to continue torsemide as needed Follow up with cardiology Paroxysmal A Fib: Rate controlled Cont metoprolol Not on anticoagulation due to hx of hemopericardium in February Stable Bronchiectasis Cont home inhalers Stable GERD: Cont ranitidine Hypothyroidism: Cont levothyroxine Stable DVT PX SCDs CODE STATUS FULL CODE Total time spent on discharge = 35 minutes This includes examination of the patient, discharge planning, medication reconciliation, and communication with other providers. Discharge Instructions Discharge Instructions Date of Service Jul 01, 2017. Admission Reason for Admission: Gastroenteritis, Pericardial Effusion Discharge Discharge Diagnosis / Problem: Gastroenteritis/Pericardial effusion/P. Afib Discharge Goals Goal(s): Decrease discomfort, Improve function, Improve disease control Activity Recommendations Activity Limitations: resume your previous activity (as tolerated) . Instructions / Follow-Up Instructions / Follow-Up Follow up with your Primary care provider Dr. Allan on 07/04 @ 9:35 AM Follow up with cardiology Dr. Gonzalez Current Hospital Diet Patient's current hospital diet: Low Sodium Diet (2gm Na) Discharge Diet Recommended Diet: Low Sodium Diet (2gm Na) Pending Studies Studies pending at discharge: no Medical Emergencies . Who to Call and When: Medical Emergencies: If at any time you feel your situation is an emergency, please call 911 immediately. . Non-Emergent Contact Non-Emergency issues call your: Primary Care Provider . . "Provider Documentation" section prepared by Lili Jarvis. . VTE Core Measure Inpt VTE Proph given/why not?: Treatment not tolerated Additional Copies To Trang Allan D.O.
== END 2017-07-01 19:25 | disposition home or self-care (01) ==
LOC: EDBD 11:32 → C.EDB 11:33 → C.MED 16:36 → ENRESERV 17:02
PROVIDERS: ADMIT Hospitalist; ATTEND Internal Medicine
DX: K52.9 Noninfective gastroenteritis and colitis, unspecified (principal); I31.3 Pericardial effusion (noninflammatory); I48.0 Paroxysmal atrial fibrillation; I50.32 Chronic diastolic (congestive) heart failure; J47.9 Bronchiectasis, uncomplicated; K21.9 Gastro-esophageal reflux disease without esophagitis; E03.9 Hypothyroidism, unspecified; Z90.89 Acquired absence of other organs; Z98.890 Other specified postprocedural states; Z98.51 Tubal ligation status; Z90.49 Acquired absence of other specified parts of digestive tract; Z95.0 Presence of cardiac pacemaker; Z79.899 Other long term (current) drug therapy; Z79.82 Long term (current) use of aspirin; Z88.1 Allergy status to other antibiotic agents; Z91.013 Allergy to seafood

== ENCOUNTER 2017-09-06 17:14 | Observation (INO) | payer OTHER ==
[~2017-09-06] VITALS: Ht 170.2 cm; Wt 82.9 kg
[~2017-09-06 17:14] MED LIST changes: +RANI150T85 PO; +SPRIN/30 INH; -TIOT1SPR INH; +TORS5TAB10 PO; -XPNINS125 NEB; -ZNTT/150 PO
[2017-09-06 18:03] LABS: BASO % 0.3 %; BASO ABS # 0.02 K/uL (0-0.2); EOS % 2.7 %; EOS ABS # 0.16 K/uL (0-0.5); HEMATOCRIT 36.3 % (37-47); HEMOGLOBIN 12.4 g/dL (12.0-16.0); IG# 0.02 K/uL (0.00-0.02); LYMPH % 30.2 %; LYMPH ABS # 1.78 K/uL (1.2-3.4); MEAN CELL VOLUME 88.3 fL (80-100); MEAN CORPUSCULAR HEMOGLOBIN 30.2 pg (25-34); MEAN CORPUSCULAR HGB CONC 34.2 g/dl (32-36); MEAN PLATELET VOLUME 10.2 fL (7.4-10.4); MONO % 11.7 %; MONO ABS # 0.69 K/uL (0.11-0.59); NEUT % 54.8 %; NEUT ABS # 3.22 K/uL (1.4-6.5); PLATELET COUNT 166 K/uL (130-400); RED CELL DISTRIBUTION WIDTH CV 15.3 % (11.5-14.5); RED CELL DISTRIBUTION WIDTH SD 49.4 fL (36.4-46.3); WHITE BLOOD COUNT 5.89 K/uL (4.8-10.8)
[2017-09-06 18:14] LABS: INR 1.1 (0.9-1.1)
--- NOTE | 2017-09-06 18:14 | EMERGENCY ROOM VISIT NOTE ---
History Report prepared by Cecily: Kristin Martinez Under the Supervision of: Dr. Julio Gunderson M.D. First contact with patient: 17:20 Chief Complaint: CHEST PAIN Stated Complaint: CHEST PAIN,HEADACHE, SOB,PERICARDIAL EFFUSION History of Present Illness The patient is a 76 year old female who presents to the Emergency Room with complaints of intermittent chest pain beginning three days ago. In the past hour , the patient had several intermittent episodes of right sided chest pain lasting about 1-2 seconds at a time. She also reports shortness of breath which worsens with exertion. The patient reports a history of a pericardial effusion since last February. She denies any surgery or drainage of her pericardial effusion. The patient states she has been following up was at [facility] for her pericardial effusion. She reports her pain today is different than her normal pericardial effusion pain. She states her pain is different because it has been moving around. The patient has a history of GERD and a pacemaker put in in November 2016. She stopped taking of Xarelto in February 2017. The patient takes 650 mg of aspirin twice a day. She denies any increased shortness of breath with laying flat. She denies any blood in her urine. However, she reports she has to sleep with her bed on an incline no more than usual. The patient was referred to come to the ED by Dr. Gonzalez-Cardiology. The patient states she took her aspirin and torsemide. Source of History: patient Onset: three days ago Position: chest Quality: other (pain) Timing: intermittent Associated Symptoms: + chest pain, + SOB Review of Systems See HPI for pertinent positives and negatives. A total of ten systems were reviewed and were otherwise negative. Past Medical & Surgical Medical Problems: (1) Bronchiectasis (2) Chest pain (3) GERD (gastroesophageal reflux disease) (4) History of pancreatitis (5) History of pericarditis (6) HLD (hyperlipidemia) (7) Hypothyroidism (8) Osteoarthritis (9) Osteoporosis (10) Paroxysmal atrial fibrillation (11) Pericardial effusion Surgical Problems: (1) H/O arthroscopic knee surgery (2) H/O partial thyroidectomy (3) History of appendectomy (4) History of sinus surgery (5) History of tonsillectomy (6) History of tubal ligation (7) Hx of cholecystectomy (8) Status post atrioventricular brayan ablation (9) Status post cardiac pacemaker procedure Family History Patient reports no known family medical history. Social History Smoking Status: Never Smoker Alcohol Use: occasionally Drug Use: none Housing Status: lives with family Occupation Status: retired Current/Historical Medications Scheduled Aspirin (Aspirin Ec), 650 MG PO DAILY Biotin (Biotin), 5 MG PO 3XWK Calcium Citrate-Vitamin D (Calcium Citrate + D), 1 TAB PO BID Colchicine (Colchicine), 0.6 MG PO BID Flaxseed (Linseed) (Flax Seed Oil), 1,000 MG PO 3XWK Levothyroxine Sodium (Levothyroxine Sodium), 100 MCG PO QAM Metoprolol Tartrate (Lopressor) (Lopressor), 25 MG PO BID Probiotic Product (Probiotic), 1 TAB PO DAILY Ranitidine (Zantac), 150 MG PO BID Rosuvastatin Calcium (Crestor), 5 MG PO 3XWK Sertraline (Zoloft), 100 MG PO HS Tiotropium [place] (Spiriva Handihaler), 1 CAP INH DAILY Scheduled PRN Torsemide (Torsemide), 5 MG PO DAILY PRN for Shortness of Breath Allergies Coded Allergies: Iodinated Diagnostic Agents (Verified Allergy, Severe, ANAPHYLAXIS, ) Shellfish (Verified Allergy, Severe, "Seafood" -- ANAPHYLAXIS, 06/30/17) Erythromycin (Verified Allergy, Intermediate, RASH, 06/30/17) Simvastatin (Verified Allergy, Intermediate, RASH, 06/30/17) Celecoxib (Verified Allergy, Mild, RASH, 06/30/17) Nystatin (Verified Allergy, Mild, RASH, 06/30/17) Rivaroxaban (Verified Adverse Reaction, Severe, 0, 06/30/17) possivble hemorrhagic pericardial effusion Moxifloxacin (Verified Adverse Reaction, Intermediate, HALUCINATIONS, ) Physical Exam Vital Signs Date Time Temp Pulse Resp B/P (MAP) Pulse Ox O2 Delivery O2 Flow Rate FiO2 09/06/17 20:26 70 18 125/78 94 Room Air 09/06/17 18:44 70 18 140/97 09/06/17 17:58 70 09/06/17 17:20 36.4 83 20 132/84 96 Room Air Physical Exam Physical Exam GENERAL: She is oriented to person, place, and time. She appears well- developed and well-nourished. She does not appear distressed. ____ HENT: Exam performed. Head: Normocephalic and atraumatic. Right Ear: External ear normal. No mastoid tenderness. Left Ear: External ear normal. No mastoid tenderness. Mouth/Throat: The oropharynx is clear and moist. No trismus in the jaw. No dental abscesses or uvula swelling. No oropharyngeal exudate or tonsillar abscesses. ____ EYES: Conjunctivae and EOM are normal. Pupils are equal, round, and reactive to light. Right eye exhibits no discharge. Left eye exhibits no discharge. No scleral icterus. ____ NECK: Normal range of motion. Neck supple. JVD present. No spinous process tenderness present. No carotid bruit present. No rigidity. No tracheal deviation and normal range of motion present. No Brudzinski's sign and no Kernig 's sign noted. ____ CV: Normal rate, regular rhythm, normal heart sounds and intact distal pulses. There is no peripheral edema. Palpable radial pulses bue. ____ PULM/CHEST: Effort normal and breath sounds normal. No respiratory distress. No stridor. She has no wheezes. She has no rales. Chest Wall: She exhibits no tenderness. ____ ABD: The abdomen is soft. Bowel sounds are normal. She has no distension. No mass is present. There is no tenderness. There is no rebound, no guarding, no Spring's sign and no tenderness at McBurney's point. Rovsig negative MUSC/SKEL: Normal range of motion. There is no peripheral edema, tenderness or deformity. LYMPH: No cervical adenopathy. ____ NEURO: She is alert and oriented to person, place, and time. She has normal strength. No cranial nerve deficit or sensory deficit. Coordination and gait normal. GCS eye subscore is 4. GCS verbal subscore is 5. GCS motor subscore is 6. Cerebellar tests wnl. ____ SKIN: Skin is warm and dry. She is not diaphoretic. ____ PSYCH: She has a normal mood and affect. Her behavior is normal. Judgment and thought content normal. ____ Medical Decision & Procedures ER Provider Diagnostic Interpretation: Radiology results as stated below per my review and radiologist interpretation: CHEST ONE VIEW PORTABLE FINDINGS: The heart is enlarged. There is a left subclavian dual-chamber central venous pacemaker present. There is bibasal atelectasis. There is no failure. There is no lobar consolidation. There are no significant pleural effusions.[ IMPRESSION: No active disease in the chest. Electronically signed by: Jagdeep Thayer M.D. Laboratory Results 09/06/17 17:55 Red Blood Count 4.11, Mean Corpuscular Volume 88.3, Mean Corpuscular Hemoglobin 30.2, Mean Corpuscular Hemoglobin Concent 34.2, Mean Platelet Volume 10.2, Neutrophils (%) (Auto) 54.8, Lymphocytes (%) (Auto) 30.2, Monocytes (%) (Auto) 11.7, Eosinophils (%) (Auto) 2.7, Basophils (%) (Auto) 0.3, Neutrophils # (Auto ) 3.22, Lymphocytes # (Auto) 1.78, Monocytes # (Auto) 0.69, Eosinophils # (Auto ) 0.16, Basophils # (Auto) 0.02 09/06/17 17:55 Test 09/06/17 17:55 White Blood Count 5.89 K/uL (4.8-10.8) Red Blood Count 4.11 M/uL (4.2-5.4) Hemoglobin 12.4 g/dL (12.0-16.0) Hematocrit 36.3 % (37-47) Mean Corpuscular Volume 88.3 fL (80-100) Mean Corpuscular Hemoglobin 30.2 pg (25-34) Mean Corpuscular Hemoglobin Concent 34.2 g/dl (32-36) Platelet Count 166 K/uL (130-400) Mean Platelet Volume 10.2 fL (7.4-10.4) Neutrophils (%) (Auto) 54.8 % Lymphocytes (%) (Auto) 30.2 % Monocytes (%) (Auto) 11.7 % Eosinophils (%) (Auto) 2.7 % Basophils (%) (Auto) 0.3 % Neutrophils # (Auto) 3.22 K/uL (1.4-6.5) Lymphocytes # (Auto) 1.78 K/uL (1.2-3.4) Monocytes # (Auto) 0.69 K/uL (0.11-0.59) Eosinophils # (Auto) 0.16 K/uL (0-0.5) Basophils # (Auto) 0.02 K/uL (0-0.2) RDW Standard Deviation 49.4 fL (36.4-46.3) RDW Coefficient of Variation 15.3 % (11.5-14.5) Immature Granulocyte % (Auto) 0.3 % Immature Granulocyte # (Auto) 0.02 K/uL (0.00-0.02) Prothrombin Time 12.0 SECONDS (9.0-12.0) Prothromb Time International Ratio 1.1 (0.9-1.1) Activated Partial Thromboplast Time 25.0 SECONDS (21.0-31.0) Partial Thromboplastin Ratio 1.0 Anion Gap 7.0 mmol/L (3-11) Est Creatinine Clear Calc Drug Dose 59.0 ml/min Estimated GFR () 72.5 Estimated GFR (Non- 62.5 BUN/Creatinine Ratio 27.7 (10-20) Calcium Level 9.2 mg/dl (8.5-10.1) Troponin I < 0.015 ng/ml (0-0.045) Laboratory results reviewed by me Medications Administered Medications (Trade) Dose Ordered Sig/Amauri Route Start Time Stop Time Status Last Admin Dose Admin Acetaminophen (Tylenol Tab) 500 mg NOW STAT PO 09/06/17 18:47 09/06/17 18:49 DC 09/06/17 19:07 500 MG ECG Per My Interpretation Indication: chest pain Rate (beats per minute): 79 Rhythm: other (ventricular paced) Findings: other (QRS 162 QTC 488) Comparison ECG Date: 07/01/17 Change: no significant change ED Course 1729: The patient was evaluated in room C6. A complete history and physical exam was performed. Bedside echo showed large pericardial effusion with right ventricular collapse in subxiphoid and apical view. 1749: Discussed the patient's case with Dr. iNna Cardiology. He is aware of the patient and knows her well. He performed an echo on the patient earlier in the week. Her echo showed a moderate amount of pericardial effusion with no evidence of tamponade. At that time, his plan was to start the patient on Aspirin, prednisone and colchicine outpatient. I discussed the patients echo findings of right ventricular collapse. He states there was no evidence of tamponade at the time he saw the patient. With the patient being hemodynamically stable and her pericardial effusion he believes the patient should be admitted into the hospital and that there is no need for acute transfer. He states the patient should be admitted and he will do a bedside echo tomorrow. He recommends not putting him on any diuresis at this point. 1752: Was able to access echo report done on September 02. Findings show: moderate to larger circumferential pericardial effusion. Cardiac tamponade is absent. Dilated IVC with reduced collapsibility. 1846: The patient's are vitals stable and she denies any chest pain or shortness of breath. Labs within normal limits. She is now complaining of a mild headache. Will admits to the hospital service. 1847: Ordered Acetaminophen 500 mg PO. 1848: Discussed the patient's case with hospitalist The patient will be evaluated for further treatment and disposition. Medical Decision 1729: The patient was evaluated in room C6. A complete history and physical exam was performed. Bedside echo showed large pericardial effusion with right ventricular collapse in subxiphoid and apical view. 1749: Discussed the patient's case with Dr. Nina Cardiology. He is aware of the patient and knows her well. He performed an echo on the patient earlier in the week. Her echo showed a moderate amount of pericardial effusion with no evidence of tamponade. At that time, his plan was to start the patient on Aspirin, prednisone and colchicine outpatient. I discussed the patients echo findings of right ventricular collapse. He states there was no evidence of tamponade at the time he saw the patient. With the patient being hemodynamically stable and her pericardial effusion he believes the patient should be admitted into the hospital and that there is no need for acute transfer. He states the patient should be admitted and he will do a bedside echo tomorrow. He recommends not putting him on any diuresis at this point. 175: Was able to access echo report done on September 02. Findings show: moderate to larger circumferential pericardial effusion. Cardiac tamponade is absent. Dilated IVC with reduced collapsibility. 1846: The patient's are vitals stable and she denies any chest pain or shortness of breath. Labs within normal limits. She is now complaining of a mild headache. Will admits to the hospital service. 1847: Ordered Acetaminophen 500 mg PO. 1847: Discussed the patient's case with hospitalist The patient will be evaluated for further treatment and disposition. Medication Reconcilliation Current Medication List: was personally reviewed by me Blood Pressure Screening Patient's blood pressure: Normal blood pressure Consults Time Called: 1739 Consulting Physician: Dr. Nina Cardiology Returned Call: 1748 Discussed the patient's case with Dr. Nina Cardiology. He is aware of the patient and knows her well. He performed an echo on the patient earlier in the week. Her echo showed a moderate amount of pericardial effusion with no evidence of tamponade. At that time, his plan was to start the patient on Aspirin, prednisone and colchicine outpatient. I discussed the patients echo findings of right ventricular collapse. He states there was no evidence of tamponade at the time he saw the patient. With the patient being hemodynamically stable and her pericardial effusion he believes the patient should be admitted into the hospital and that there is no need for acute transfer. He states the patient should be admitted and he will do a bedside echo tomorrow. He recommends not putting him on any diuresis at this point. Additional Consults: Time Called: 1844 Consulted Physician: Dr. Hawley Returned Call: 1847 Additional Comments: Discussed the patient's case with Dr. Hawley. The patient will be evaluated for further treatment and disposition. Impression Primary Impression: Pericardial tamponade Critical Care I have personally spent greater than 34 minutes of critical care time in the direct management of this patient. This includes bedside care, interpretation of diagnostic studies, and testing, discussion with consultants, patient, and family members, and other required patient management activities. This 34 minutes is in excess of all separately billable procedures. Scribe Attestation The scribe's documentation has been prepared under my direction and personally reviewed by me in its entirety. I confirm that the note above accurately reflects all work, treatment, procedures, and medical decision making performed by me. Departure Information Dispostion Being Evaluated By Hospitalist Referrals Trang Allan D.O. (PCP) Patient Instructions My [facility]
[2017-09-06 18:23] LABS: BLOOD UREA NITROGEN 25 mg/dl (7-18); CALCIUM 9.2 mg/dl (8.5-10.1); CARBON DIOXIDE 26 mmol/L (21-32); CREATININE 0.89 mg/dl (0.60-1.20); GLUCOSE 98 mg/dl (70-99); SODIUM 138 mmol/L (136-145)
--- NOTE | 2017-09-06 18:45 | DIAGNOSTIC IMAGING REPORT ---
CHEST ONE VIEW PORTABLE CLINICAL HISTORY: Atypical chest pain. Headache. COMPARISON STUDY: 06/30/2017 FINDINGS: The heart is enlarged. There is a left subclavian dual-chamber central venous pacemaker present. There is bibasal atelectasis. There is no failure. There is no lobar consolidation. There are no significant pleural effusions.[ IMPRESSION: No active disease in the chest. Electronically signed by: Jagdeep Thayer M.D. 09/06/2017 6:44 PM Dictated Date/Time: 09/06/2017 6:43 PM
[2017-09-06] MEDS ORDERED: ACETAMINOPHEN 500 MG TAB PO STA (18:47)
[2017-09-06] MEDS ORDERED: ASPI325T39 PO (19:41)
[2017-09-06] MEDS ORDERED: ACETAMINOPHEN 325 MG TAB PO PRN (20:00)
[2017-09-06] MEDS ORDERED: ONDANSETRON INJ 2 MG/ML 2 ML VIAL IV PRN (20:00)
[2017-09-06] MEDS ORDERED: POLYETHYLENE (MIRALAX) 17 GM PACK PO PRN (20:00)
[2017-09-06] MEDS ORDERED: ENOXAPARIN 30 MG/0.3 ML SYR SC SCH (21:00)
[2017-09-06] MEDS ORDERED: IV FLUIDS COMPLETED PRN (21:00)
--- NOTE | 2017-09-06 21:21 | History and Physical ---
History & Physical Date & Time of Service: Sep 06, 2017 at 21:21 Chief Complaint: Chest Pain,Headache, Sob,Pericardial Effusion Primary Care Physician: Trang Allan D.O. History of Present Illness Source: patient, family, clinic records, hospital records Patient is a 76 yo female who presents to the hospital for complaints of chest pain, with associated SOB, that has been progressively worsening over the past 3 days. The patient states she has actually been feeling tired, SOB, SWAIN, and some intermittent sharp chest pains for the last 3 weeks; she underwent an outpatient TTE about 4 days ago that showed moderate to large pericardial effusion similar to her previous TTE from the beginning of the month, however she did have a slight increase in the diameter of the IVC from 2.1 cm to 2.4 cm and persistent evidence of elevated RA pressure. The patient has been on colchicine and ASA and has been compliant with meds. She also notes a 5 lbs weight gain and has been taking torsemide daily as discussed with Cardiology. The patient felt as though her sharp chest pain was more intense and more frequent today, and seemed to last longer than it has the last few days which prompted her to come to the hospital. She mentions her symptoms feel different from last February 2017 when she had her first bout of pericardial effusion. She denies orthopnea but states she normally would never lay flat so isn't sure. She reports worsening SWAIN and SOB at rest over the last few days. She also reports sharp pain radiating into her mid-back. She reports some dizziness with standing up but no syncope. She also reports a non-productive cough. She denies any fever or chills. She also mentions having a headache today which has since improved with tylenol but denies any visual changes. The patient reports having a viral URI from June until July and reports she had a difficult time recovering from that illness but her cough, congestion , and sore throat symptoms have completely resolved. No other recent illness. No recent antibiotic use other than 1 dose of amoxicillin for dental work 1 month ago. Past Medical/Surgical History Medical Problems: (1) Bronchiectasis (2) Chest pain (3) GERD (gastroesophageal reflux disease) (4) History of pancreatitis (5) HLD (hyperlipidemia) (6) Hypothyroidism (7) Osteoarthritis (8) Osteoporosis (9) Hx of Paroxysmal atrial fibrillation (10) Pericardial effusion Surgical Problems: (1) Arthroscopic knee surgery (2) Partial thyroidectomy (3) History of appendectomy (4) History of sinus surgery (5) History of tonsillectomy (6) History of tubal ligation (7) Hx of cholecystectomy (8) Status post atrioventricular brayan ablation (9) Status post cardiac pacemaker procedure Family History Patient reports no known family medical history. Father: CAD, OR, ruptured AA Social History Smoking Status: Never Smoker Smokeless Tobacco Use: No Alcohol Use: occasionally Drug Use: none Housing status: lives alone Occupational Status: retired Immunizations History of Influenza Vaccine: Yes History of Tetanus Vaccine?: Yes Tetanus Immunization Date: Sep 16, 2008 History of Pneumococcal: Yes Pneumococcal Date: Jan 29, 2012 Allergies Coded Allergies: Iodinated Diagnostic Agents (Verified Allergy, Severe, ANAPHYLAXIS, ) Shellfish (Verified Allergy, Severe, "Seafood" -- ANAPHYLAXIS, 06/30/17) Erythromycin (Verified Allergy, Intermediate, RASH, 06/30/17) Simvastatin (Verified Allergy, Intermediate, RASH, 06/30/17) Celecoxib (Verified Allergy, Mild, RASH, 06/30/17) Nystatin (Verified Allergy, Mild, RASH, 06/30/17) Rivaroxaban (Verified Adverse Reaction, Severe, 0, 06/30/17) possivble hemorrhagic pericardial effusion Moxifloxacin (Verified Adverse Reaction, Intermediate, HALUCINATIONS, ) Home Medications Scheduled Aspirin (Aspirin Ec), 650 MG PO DAILY Biotin (Biotin), 5 MG PO 3XWK Calcium Citrate-Vitamin D (Calcium Citrate + D), 1 TAB PO BID Colchicine (Colchicine), 0.6 MG PO BID Flaxseed (Linseed) (Flax Seed Oil), 1,000 MG PO 3XWK Levothyroxine Sodium (Levothyroxine Sodium), 100 MCG PO QAM Metoprolol Tartrate (Lopressor) (Lopressor), 25 MG PO BID Probiotic Product (Probiotic), 1 TAB PO DAILY Ranitidine (Zantac), 150 MG PO BID Rosuvastatin Calcium (Crestor), 5 MG PO 3XWK Sertraline (Zoloft), 100 MG PO HS Tiotropium [place] (Spiriva Handihaler), 1 CAP INH DAILY Scheduled PRN Torsemide (Torsemide), 5 MG PO DAILY PRN for Shortness of Breath Review of Systems Constitutional: + fatigue, No fever, No chills, No sweats, No weight loss Eyes: No worsening of vision, No eye pain, No diplopia ENT: No hearing loss, No nasal symptoms, No sore throat Respiratory: + cough, + shortness of breath, + dyspnea on exertion, No sputum, No wheezing Cardiovascular: + chest pain, No orthopnea, No edema, No palpitations Abdomen: No pain, No nausea, No vomiting, No diarrhea Musculoskeletal: No joint pain, No muscle pain, No swelling Genitourinary - Female: No dysuria, No urinary frequency, No urinary urgency, No urinary incontinence Neurologic: No paralysis, No numbness/tingling, No vertigo Psychiatric: No depression symptoms, No anxiety, No insomnia Endocrine: + fatigue, No excessive thirst, No excessive urination Hematologic / Lymphatic: + night sweats, No abnormal bleeding/bruising, No clotting problems, No swollen lymph nodes Integumentary: No rash, No itch, No new/changing skin lesions Physical Exam Vital Signs Date Time Temp Pulse Resp B/P (MAP) Pulse Ox O2 Delivery O2 Flow Rate FiO2 09/06/17 21:12 70 18 117/74 95 09/06/17 20:26 70 18 125/78 94 Room Air 09/06/17 18:44 70 18 140/97 09/06/17 17:58 70 09/06/17 17:20 36.4 83 20 132/84 96 Room Air General Appearance: WD/WN, no apparent distress Head: normocephalic, atraumatic Eyes: PERRL, EOMI, sclerae normal (conjunctivae clear) ENT: hearing grossly normal Neck: supple, no JVD, no carotid bruits, trachea midline Respiratory/Chest: chest non-tender, lungs clear, normal breath sounds, no respiratory distress, no accessory muscle use Cardiovascular: regular rate, rhythm, no edema, no gallop, no JVD, no murmur, normal peripheral pulses Abdomen/GI: normal bowel sounds, non tender, soft, no organomegaly Back: no CVA tenderness Extremities/Musculoskelatal: normal inspection, no calf tenderness, no pedal edema Neurologic/Psych: no motor/sensory deficits, alert, normal mood/affect, oriented x 3 Skin: normal color, warm/dry, no rash Diagnostics Laboratory Results Results Past 24 Hours Test 09/06/17 17:55 Range/Units White Blood Count 5.89 4.8-10.8 K/uL Red Blood Count 4.11 4.2-5.4 M/uL Hemoglobin 12.4 12.0-16.0 g/dL Hematocrit 36.3 37-47 % Mean Corpuscular Volume 88.3 80-100 fL Mean Corpuscular Hemoglobin 30.2 25-34 pg Mean Corpuscular Hemoglobin Concent 34.2 32-36 g/dl Platelet Count 166 130-400 K/uL Mean Platelet Volume 10.2 7.4-10.4 fL Neutrophils (%) (Auto) 54.8 % Lymphocytes (%) (Auto) 30.2 % Monocytes (%) (Auto) 11.7 % Eosinophils (%) (Auto) 2.7 % Basophils (%) (Auto) 0.3 % Neutrophils # (Auto) 3.22 1.4-6.5 K/uL Lymphocytes # (Auto) 1.78 1.2-3.4 K/uL Monocytes # (Auto) 0.69 0.11-0.59 K/uL Eosinophils # (Auto) 0.16 0-0.5 K/uL Basophils # (Auto) 0.02 0-0.2 K/uL RDW Standard Deviation 49.4 36.4-46.3 fL RDW Coefficient of Variation 15.3 11.5-14.5 % Immature Granulocyte % (Auto) 0.3 % Immature Granulocyte # (Auto) 0.02 0.00-0.02 K/uL Prothrombin Time 12.0 9.0-12.0 SECONDS Prothromb Time International Ratio 1.1 0.9-1.1 Activated Partial Thromboplast Time 25.0 21.0-31.0 SECONDS Partial Thromboplastin Ratio 1.0 Sodium Level 138 136-145 mmol/L Potassium Level 4.0 3.5-5.1 mmol/L Chloride Level 105 98-107 mmol/L Carbon Dioxide Level 26 21-32 mmol/L Anion Gap 7.0 3-11 mmol/L Blood Urea Nitrogen 25 7-18 mg/dl Creatinine 0.89 0.60-1.20 mg/dl Est Creatinine Clear Calc Drug Dose 59.0 ml/min Estimated GFR () 72.5 Estimated GFR (Non- 62.5 BUN/Creatinine Ratio 27.7 10-20 Random Glucose 98 70-99 mg/dl Calcium Level 9.2 8.5-10.1 mg/dl Troponin I < 0.015 0-0.045 ng/ml Impression Assessment and Plan CHEST PAIN: -initial troponin negative; repeat x 2 additional -TTE ordered; last TTE from 09/02/17 showed Ejection Fraction = 55-59%, dilated IVC, elevated RA pressure, moderate to large pericardial effusion -EKG: showed ventricular paced rhythm -Cardiology consulted, aware of patient and recommend holding diuresis and continuing ASA, colchicine, and prednisone -monitor in tele -CXR: no active disease in the chest RECURRENT PERICARDIAL EFFUSION: -recurrent episodes since initial one in Feb 2017 -check ESR and C-reactive protein -Patient reports following with [facility] as well and they suggested this could be related to the AV brayan ablation that was done last spring -treatment as above pending Cardio eval and repeat TTE -a bedside US performed by the ER staff showed a large pericardial effusion with right ventricular collapse in subxiphoid and apical views per their documentation PAROXYSMAL ATRIAL FIBRILLATION: -S/P AV ablation + pacemaker implantation -continued on metoprolol -anticoagulants were stopped due to pericarditis HYPOTHYROIDISM: -continue levothyroxine. -recheck TSH and free T4 DYSLIPIDEMIA: -continue rosuvastatin. BRONCHIECTASIS: -continue Spiriva Level of Care Telemetry Resuscitation Status FULL RESUSCITATION VTE Prophylaxis VTE Risk Assessment Done? Y/N: Yes Risk Level: Moderate Given or contraindicated: Enoxaparin (Lovenox)SQ
[2017-09-06] MEDS ORDERED: NON-FORMULARY MEDICATION (Biotin 5 MG) PO SCH (21:30)
[2017-09-06 21:45] VITALS: BP 121/73; PULSE 70; TEMP 36.5; O2SAT 94; Ht 170.2 cm; Wt 82.9 kg
[2017-09-06] MEDS: COLCHICINE 0.6 MG TAB PO SCH (22:25)
[2017-09-06] MEDS: METOPROLOL TARTRATE 25 MG TAB PO SCH (22:25)
[2017-09-06] MEDS: RANITIDINE HCL 150 MG TAB PO SCH (22:26)
[2017-09-06 23:31] VITALS: BP 118/78; PULSE 70; TEMP 36.6; O2SAT 93
[2017-09-07 03:40] VITALS: BP 129/81; PULSE 68; TEMP 36.6; O2SAT 95
[2017-09-07] MEDS ORDERED: LEVOTHYROXINE 100 MCG TAB PO SCH (06:00)
[2017-09-07 08:09] VITALS: BP 110/61; PULSE 71; TEMP 36.6; O2SAT 95
[2017-09-07 08:40] LABS: BASO % 0.3 %; BASO ABS # 0.02 K/uL (0-0.2); EOS % 2.5 %; EOS ABS # 0.15 K/uL (0-0.5); HEMATOCRIT 39.6 % (37-47); HEMOGLOBIN 12.9 g/dL (12.0-16.0); IG# 0.01 K/uL (0.00-0.02); LYMPH % 19.1 %; LYMPH ABS # 1.15 K/uL (1.2-3.4); MEAN CELL VOLUME 88.6 fL (80-100); MEAN CORPUSCULAR HEMOGLOBIN 28.9 pg (25-34); MEAN CORPUSCULAR HGB CONC 32.6 g/dl (32-36); MEAN PLATELET VOLUME 9.8 fL (7.4-10.4); MONO % 8.3 %; NEUT % 69.6 %; NEUT ABS # 4.19 K/uL (1.4-6.5); PLATELET COUNT 174 K/uL (130-400); RED CELL DISTRIBUTION WIDTH CV 15.3 % (11.5-14.5); RED CELL DISTRIBUTION WIDTH SD 49.6 fL (36.4-46.3); WHITE BLOOD COUNT 6.02 K/uL (4.8-10.8)
[2017-09-07] MEDS: METOPROLOL TARTRATE 25 MG TAB PO SCH (08:58)
[2017-09-07] MEDS: COLCHICINE 0.6 MG TAB PO SCH (08:58)
[2017-09-07] MEDS: RANITIDINE HCL 150 MG TAB PO SCH (08:58)
[2017-09-07] MEDS ORDERED: LACTOBACILLUS ACIDOPHILUS (FLORANEX) TAB PO SCH (09:00)
[2017-09-07] MEDS ORDERED: TORSEMIDE 20 MG TAB PO SCH (09:00)
[2017-09-07] MEDS ORDERED: ASPIRIN 325 MG ECTAB PO SCH (09:00)
[2017-09-07] MEDS ORDERED: TIOTROPIUM BROMIDE 5 PUFF/90 MCG INH INH SCH (09:00)
--- NOTE | 2017-09-07 09:02 | ECHOCARDIOGRAM REPORT ---
*NOTICE TO RECEIVING CONSTITUTION PARTY AGENCY This information is strictly Confidential and protected under [place] law. [place] law prohibits you from making any further disclosure of this information unless further disclosure is expressly permitted by the written consent of the person to whom it pertains or is authorized by law. A general authorization for the release of medical or other information is not sufficient for this purpose. Hospital accepts no responsibility if the information is made available to any other person, INCLUDING THE PATIENT. Interpretation Summary * Name: DAVIDE BARRIOS Study Date: 09/07/2017 06:38 AM BP: 110/61 mmHg * Patient Location: C.2T\S\S229\S\1 HR: 80 * : 1940 (M/d/yyyy) Gender: Female Height: 67 in * Age: 76 yrs Ethnicity: [place] Weight: 185 lb * Ordering Physician: Donte Chau * Referring Physician: Self, Referred * Performed By: Chayo Hsieh [facility] * * Reason For Study: REASSESS PERICARDIAL EFFUSION * BSA: 2.0 m2 * -- Conclusions -- * There is mild concentric left ventricular hypertrophy. * The left ventricular wall motion is normal. * The LV Ejection Fraction = 60-65%. * The right ventricle is normal in size and function. * There is a large sized circumferential pericardial effusion. * The maximum diameter of the pericardial fluid in diastole is 2 cm adjacent to the inferior LV wall, 2.2 cm adjacent to the infeorlateral wall , and 2.6 cm adjacent to the lateral wall in the apical 4 chamber view, 3 cm adjacent to the left atrium. * The inferior vena cava is dilated (2.4 cm) with reduced collapsability with sniff indicates an elevated right atrial pressure of 15 mmHg and indicating elevated perciardial pressure. * There are no echocardiographic indications of cardiac tamponade. * Compared to the recent outpatient study performed at [facility] dated 09/02/17, there has been no significant interval change. * Compared to the most recent study performed at [facility] dated 07/01/17, there has been an interval significant increase in the size and extend of the pericardial effusion. Procedure Details * A complete two-dimensional transthoracic echocardiogram was performed (2D, M-mode, Doppler and color flow Doppler). Left Ventricle * The left ventricle is normal in size. * There is mild concentric left ventricular hypertrophy. * Left ventricular systolic function is normal. * Ejection Fraction = 60-65%. * The left ventricular wall motion is normal. Right Ventricle * The right ventricle is normal in size and function. Atria * The left atrium is severely dilated. * Right atrial size is normal. * A pacemaker lead is noted in the right atrium. * There is no evidence of atrial septal defect, but resolution does not allow assessment for a patent foramen ovale. Mitral Valve * The mitral valve is normal. * There is no mitral valve stenosis. * There is mild mitral 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. Tricuspid Valve * The tricuspid valve anatomy is normal. * There is no tricuspid stenosis. * There is mild tricuspid 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. * Doppler findings do not suggest pulmonary hypertension. Aortic Valve * The aortic valve is trileaflet. * Aortic stenosis is absent. * There is no significant aortic 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. Pulmonic Valve * The pulmonary valve is not well seen, but the Doppler examination is normal without significant 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 or stenosis. Great Vessels * The aortic root and proximal ascending aorta are normal sized. Pericardium/Pleural * There is a large sized circumferential pericardial effusion. The maximum diameter of the pericardial fluid in diastole is 2 cm adjacent to the inferior LV wall, 2.2 cm adjacent to the infeorlateral wall , and 2.6 cm adjacent to the lateral wall in the apical 4 chamber view, 3 cm adjacent to the left atrium. * There are no echocardiographic indications of cardiac tamponade. Right Ventricle * There is a pacemaker lead noted in the right ventricle. Great Vessels * Dilated inferior vena cava with reduced collapsability with sniff indicates an elevated right atrial pressure of 15 mmHg MMode 2D Measurements and Calculations IVSd 1.1 cm IVSs 1.4 cm LVIDd 4.2 cm LVIDs 2.9 cm LVPWd 1.1 cm LVPWs 1.5 cm IVS/LVPW 1.0 FS 29.8 % EDV(Teich) 76.5 ml ESV(Teich) 32.7 ml EF(Teich) 57.3 % EDV(cubed) 71.6 ml ESV(cubed) 24.8 ml EF(cubed) 65.3 % % IVS thick 21.3 % % LVPW thick 33.7 % LV mass(C)d 161.5 grams LV mass(C)dI 82.5 grams/m\S\2 LV mass(C)s 143.0 grams LV mass(C)sI 73.1 grams/m\S\2 SV(Teich) 43.8 ml SI(Teich) 22.4 ml/m\S\2 SV(cubed) 46.8 ml SI(cubed) 23.9 ml/m\S\2 Ao root diam 2.6 cm Ao root area 5.4 cm\S\2 ACS 1.8 cm LA dimension 5.1 cm LA/Ao 1.9 LVOT diam 2.0 cm LVOT area 3.3 cm\S\2 LVAd ap4 25.5 cm\S\2 LVLd ap4 6.8 cm EDV(MOD-sp4) 76.8 ml EDV(sp4-el) 81.4 ml LVAs ap4 17.1 cm\S\2 LVLs ap4 5.9 cm ESV(MOD-sp4) 39.8 ml ESV(sp4-el) 42.2 ml EF(MOD-sp4) 48.1 % EF(sp4-el) 48.1 % LVAd ap2 29.4 cm\S\2 LVLd ap2 7.2 cm EDV(MOD-sp2) 94.1 ml EDV(sp2-el) 101.5 ml LVAs ap2 18.5 cm\S\2 LVLs ap2 6.0 cm ESV(MOD-sp2) 45.4 ml ESV(sp2-el) 48.4 ml EF(MOD-sp2) 51.8 % EF(sp2-el) 52.3 % LVLd %diff 6.1 % EDV(MOD-bp) 88.7 ml LVLs %diff 1.6 % ESV(MOD-bp) 43.2 ml EF(MOD-bp) 51.3 % SV(MOD-sp4) 37.0 ml SI(MOD-sp4) 18.9 ml/m\S\2 SV(MOD-sp2) 48.7 ml SI(MOD-sp2) 24.9 ml/m\S\2 SV(MOD-bp) 45.5 ml SI(MOD-bp) 23.2 ml/m\S\2 SV(sp4-el) 39.2 ml SI(sp4-el) 20.0 ml/m\S\2 SV(sp2-el) 53.1 ml SI(sp2-el) 27.2 ml/m\S\2 Doppler Measurements and Calculations MV E max balaji 99.2 cm/sec MV A max balaji 34.5 cm/sec MV E/A 2.9 MV P1/2t max balaji 113.9 cm/sec MV P1/2t 86.1 msec MVA(P1/2t) 2.6 cm\S\2 MV dec slope 387.5 cm/sec\S\2 MV dec time 0.16 sec Ao V2 max 102.7 cm/sec Ao max PG 4.2 mmHg Ao max PG (full) 1.9 mmHg SHANNAN(V,A) 2.4 cm\S\2 SHANNAN(V,D) 2.4 cm\S\2 LV V1 max PG 2.3 mmHg LV V1 max 76.0 cm/sec PA V2 max 88.0 cm/sec PA max PG 3.1 mmHg TR max balaji 236.4 cm/sec
[2017-09-07 09:04] LABS: CALCIUM 9.2 mg/dl (8.5-10.1); CREATININE 0.79 mg/dl (0.60-1.20); POTASSIUM 4.1 mmol/L (3.5-5.1)
--- NOTE | 2017-09-07 10:07 | Cardiology Consultation ---
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 Brown for the evaluation of chest discomfort , shortness of breath, with history of known pericardial effusion. The patient is well known to the undersigned. Her primary parking lot spotter is Dr. Jason Gonzalez of our practice however I have followed her on multiple past inpatient admissions and have also interpreted multiple inpatient and outpatient echocardiogram studies on her recently. The patient presented to the emergency room last evening complaining of episodic midline and right-sided chest discomfort as well as pain between her shoulder blades that would only last a few seconds. She also notes worsening dyspnea on exertion. Her shortness of breath has progressed recently over the last few weeks to the point that she is no longer able to walk across her apartment comfortably. During my assessment of her this morning, she is in no acute distress. Her blood pressures have remained stable. EKG performed on presentation yesterday at 1723 hrs. revealed ventricular paced rhythm at 79 bpm, with atrial activity consistent with underlying atrial fibrillation. The patient has a complex past cardiac history with recurrent episodes of symptomatic refractory atrial fibrillation. Ultimately she underwent insertion of a dual-chamber pacemaker and AV junction ablation performed by Dr. loera at [facility] in Nov, 2016. On 02/21/17 she presented to [facility] with complaints of chest discomfort and was found to have profound hypotension with systolic blood pressures in the 60-[address] of the chest and echocardiogram revealed a small to moderate circumferential pericardial effusion. It was felt that tamponade physiology was not present initially, however the patient did have refractory hypotension and required transient dopamine support with subsequent improvement in her blood pressure after short course of dopamine and IV fluid resuscitation. At that time, I had seen her in the hospital at [facility] and due to her recent AV junction and pacemaker implantation as well as her anticoagulation with Xarelto, I had been concerned about a post procedure inflammatory pericardial response or perhaps hemopericardium and therefore she was transferred to [facility] [place]. Upon arrival, her hemodynamics had improved and it was felt that pericardiocentesis or pericardial window was not necessary at that time. Her anticoagulation was held and she had been discharged on a high-dose aspirin taper as well as colchicine. A week after her discharge from [facility] she was readmitted to [facility] with shortness of breath and bilateral pleural effusions were felt to be due to volume overload from all the resuscitation fluid she received the week before. She responded well to IV furosemide. In the interim, she has been followed closely for ongoing issues with her pericardial effusion which had decreased in size as documented on echocardiogram performed at [facility] in June 2017, however she has remained off of anticoagulation because when it was initiated it was felt that the pericardial effusion had increased in size she had become symptomatic again. She has been on multiple trials of medication therapy for chronic pericarditis with noted treatment with colchicine, high-dose aspirin, and prednisone was initiated in March 2017. Within the last month she had been referred to the [facility] for another opinion. Diagnostic and therapeutic pericardiocentesis was not recommended at that time, and it was recommended that the patient be placed on a aspirin taper again, the same medication therapy that had been tried back in February. Past Medical/Surgical History Problem List: Medical Problems: (1) Beozomwrqvxaxh-jqff-xxqamnepci recently no recent exacerbations (2) Chest pain (3) GERD (gastroesophageal reflux disease) (4) History of pancreatitis (5) History of pericarditis (6) HLD (hyperlipidemia) (7) Hypothyroidism (8) Osteoarthritis (9) Osteoporosis (10) Paroxysmal atrial fibrillation (11) Pericardial effusion Surgical Problems: (1) H/O arthroscopic knee surgery (2) H/O partial thyroidectomy (3) History of appendectomy (4) History of sinus surgery (5) History of tonsillectomy (6) History of tubal ligation (7) Hx of cholecystectomy (8) Status post atrioventricular brayan ablation (9) Status post cardiac pacemaker procedure History Social History: 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 She is accompanied by her daughter at the bedside. She is a nonsmoker Family History: No relevant family history of cardiac disease Review Of Systems See above for pertinent positives & negatives. A total of 10 systems reviewed and were otherwise negative. Allergies Coded Allergies: Iodinated Diagnostic Agents (Verified Allergy, Severe, ANAPHYLAXIS, ) Shellfish (Verified Allergy, Severe, "Seafood" -- ANAPHYLAXIS, 06/30/17) Erythromycin (Verified Allergy, Intermediate, RASH, 06/30/17) Simvastatin (Verified Allergy, Intermediate, RASH, 06/30/17) Celecoxib (Verified Allergy, Mild, RASH, 06/30/17) Nystatin (Verified Allergy, Mild, RASH, 06/30/17) Rivaroxaban (Verified Adverse Reaction, Severe, 0, 06/30/17) possivble hemorrhagic pericardial effusion Moxifloxacin (Verified Adverse Reaction, Intermediate, HALUCINATIONS, ) Medications Reported Home Medications Medications Dose Route/Sig Max Daily Dose Days Date Category Dose Instructions Aspirin Ec (Aspirin) 325 Mg Tab 650 Mg PO DAILY 09/06/17 Reported Spiriva Handihaler (Tiotropium [place]) 30 Puff/540 Mcg Aerp 1 Cap INH DAILY 06/30/17 Reported Torsemide 5 Mg Tab 5 Mg PO DAILY PRN 06/30/17 Reported Lopressor (Metoprolol Tartrate) 25 Mg Tab 25 Mg PO BID 04/03/17 Reported Colchicine 0.6 Mg Tab 0.6 Mg PO BID 03/25/17 Reported Flax Seed Oil (Flaxseed (Linseed)) 1,000 Mg Cap 1,000 Mg PO 3XWK 02/28/17 Reported Calcium Citrate + D (Calcium Citrate-Vitamin D) 1 Tab Tab 1 Tab PO BID 11/13/16 Reported Probiotic (Probiotic Product) 1 Tab Tab 1 Tab PO DAILY 09/17/16 Reported FRIDAY, FRIDAY, FRIDAY Biotin 5 Mg Tab 5 Mg PO 3XWK 12/15/15 Reported TAKES FRIDAY/FRIDAY/FRIDAY Zoloft (Sertraline HCl) 100 Mg Tab 100 Mg PO HS 11/27/15 Reported Zantac (Ranitidine HCl) 150 Mg Tab 150 Mg PO BID 11/27/15 Reported Levothyroxine Sodium 100 Mcg Tab 100 Mcg PO QAM 11/27/15 Reported Crestor (Rosuvastatin Calcium) 5 Mg Tab 5 Mg PO 3XWK 11/27/15 Reported EVERY FRIDAY/FRIDAY/FRIDAY Physical Exam Vital Signs (Last 8hrs): Last 8 Hrs Date Time Temp Pulse Resp B/P (MAP) Pulse Ox O2 Delivery O2 Flow Rate FiO2 09/07/17 08:09 36.6 71 18 110/61 (77) 95 09/07/17 04:00 Room Air 09/07/17 03:40 36.6 68 17 129/81 (97) 95 Room Air General Appearance: Alert and Oriented x3. NAD. Head: Normocephalic Atraumatic. Eyes: PERRLA, EOMI, conjunctiva and sclera clear Neck: Supple. No carotid bruits noted. No JVD. No HJD. Respiratory: Breath sounds clear to auscultation bilaterally. No w/r/r. Cardiovascular: Reg rate and rhythm. S1 and S2 noted. No murmurs, rubs, gallops. PMI non displace. Abdomen: Normal bowel sounds, soft nontender. no abdominal bruits. Extremities: No edema, no clubbing or cyanosis. distal pulses 2/4 bilaterally. Neuro: No focal deficits. Psychiatric: Normal affect. Data Last Resulted 09/07/17 08:24 Red Blood Count 4.47, Mean Corpuscular Volume 88.6, Mean Corpuscular Hemoglobin 28.9, Mean Corpuscular Hemoglobin Concent 32.6, Mean Platelet Volume 9.8, Neutrophils (%) (Auto) 69.6, Lymphocytes (%) (Auto) 19.1, Monocytes (%) (Auto) 8.3, Eosinophils (%) (Auto) 2.5, Basophils (%) (Auto) 0.3, Neutrophils # (Auto) 4.19, Lymphocytes # (Auto) 1.15, Monocytes # (Auto) 0.50, Eosinophils # (Auto) 0.15, Basophils # (Auto) 0.02 Last Resulted 09/07/17 08:24 Past 24 Hours Test 09/06/17 17:55 09/07/17 01:32 09/07/17 05:59 Range/Units Prothromb Time International Ratio 1.1 0.9-1.1 Prothrombin Time 12.0 9.0-12.0 SECONDS Troponin I < 0.015 < 0.015 < 0.015 0-0.045 ng/ml Low sensitivity C-reactive protein mildly elevated at 0.98 mg/dL Percocet sedimentation rate mildly elevated 23 mm/h Troponin negative 3 EKG as described above Summary transthoracic echocardiogram performed today and reviewed independently by the undersigned: * -- Conclusions -- * There is mild concentric left ventricular hypertrophy. * The left ventricular wall motion is normal. * Ejection Fraction = 60-65%. * The right ventricle is normal in size and function. * There is a large sized circumferential pericardial effusion. * The maximum diameter of the pericardial fluid in diastole is 2 cm adjacent to the inferior LV wall, 2.2 cm adjacent to the infeorlateral wall , and 2.6 cm adjacent to the lateral wall in the apical 4 chamber view, 3 cm adjacent to the left atrium. * The inferior vena cava is dilated (2.4 cm) with reduced collapsability with sniff indicates an elevated right atrial pressure of 15 mmHg and indicating elevated perciardial pressure. * There are no echocardiographic indications of cardiac tamponade. * Compared to the recent outpatient study performed at [facility] dated 09/02, there has been no significant interval change. * Compared to the most recent study performed at [facility] dated 07/01/17, there has been an interval significant increase in the size and extend of the pericardial effusion. Assessment & Plan Impression 76-year-old female 1. Recurrent pericarditis, refractory to multiple past trials of conservative medication therapy 2. History of paroxysmal, now chronic persistent atrial fibrillation, status post dual-chamber pacemaker, AV junction ablation, Nov, 2016, [facility] 3. History of diastolic dysfunction, volume overload, volume status considered euvolemic at present 4. Not an anticoagulation due to recurrent pericardial effusion Discussion/recommendations: The patient has had multiple admissions since February, for her pericardial disease. Initially, it was felt to potentially be due to a microperforation from her pacemaker placement or a postprocedure inflammatory reaction. Anticoagulation had therefore been discontinued, and her effusion has persisted despite medication therapy with colchicine which she has been on chronically, as well as aspirin and prednisone tapers. Although the effusion size had improved to some degree over the last few months, she has had 4 echocardiograms in the last 5 weeks with subtle increase in the size of pericardial effusion on each the last 3 studies, and noted plethora of the inferior vena cava. The patient is a long-standing history of atypical chest discomfort, and I'm not convinced that her chest discomfort is consistent with angina or pericarditis. I am however concerned that her progressive dyspnea is related to her pericardial effusion. The patient has a chronic complaint of dyspnea with exertion, but she notes progressive easy fatigability and shortness of breath over the last few weeks especially within the last week and she states that she has difficulty walking from one side of her apartment to the other. At present, I recommend holding her high-dose aspirin 650 mg daily in preparation for invasive procedure. The tentative plan previously had been for her to have another trial of prednisone. Therefore she has received 60 mg of prednisone today, as well as her colchicine. Personal opinion however is that I think the patient will be best served by proceeding with a surgical pericardial window for both diagnostic and therapeutic purposes. I discussed her case with her primary parking lot spotter, Dr Gonzalez , and Dr Garcia of cardiothoracic surgery at [facility]. Dr Garcia has agreed to accept her in transfer for consideration of pericardial window. I think that this is a better approach than pericardiocentesis in this case as it will allow biopsy of her pericardium and short term and detention drainage. I would have concerns that if pericardiocentesis was performed, that her fluid would reaccumulate within the next few weeks based on her echocardiographic and clinical findings. Patient was agreeable to the plan. She is to be transferred by [facility] when a bed is available.
[2017-09-07 11:32] VITALS: BP 119/73; PULSE 73; TEMP 36.8; O2SAT 95
--- NOTE | 2017-09-07 13:51 | Progress Note ---
Medicine Progress Note Date & Time of Visit: Sep 07, 2017 at 13:44. Subjective seen resting in bed, comfortable states she feels better compared to yesterday denies chest pain this morning denies dyspnea at rest no other symptoms discussed case with Dr. Chau, patient to be transferred to [facility] Objective Last 8 Hrs Date Time Temp Pulse Resp B/P (MAP) Pulse Ox O2 Delivery O2 Flow Rate FiO2 09/07/17 12:00 Room Air 09/07/17 11:32 36.8 73 18 119/73 (88) 95 09/07/17 08:09 36.6 71 18 110/61 (77) 95 09/07/17 08:00 Room Air Physical Exam: General- oriented x 3, not in distress, speaks in sentences with no effort Head- atraumatic Eyes- PERRL, EOMI, anicteric ENT- oropharynx clear Neck- supple, no JVD, no adenopathy, no thyromegaly; carotids +2/2 Lungs- clear breath sounds bilaterally, no rales/wheezes Heart- regular rhythm; no murmur, normal rate Abdomen- normal bowel sounds, soft, nontender Extremities- no pretibial edema, no calf tenderness; peripheral pulses intact Neuro- alert, oriented x 3; no gross focal deficits Skin- warm & dry Laboratory Results: Last 24 Hours Test 09/06/17 17:55 09/07/17 01:32 09/07/17 05:59 09/07/17 08:15 White Blood Count 5.89 K/uL Red Blood Count 4.11 M/uL Hemoglobin 12.4 g/dL Hematocrit 36.3 % Mean Corpuscular Volume 88.3 fL Mean Corpuscular Hemoglobin 30.2 pg Mean Corpuscular Hemoglobin Concent 34.2 g/dl Platelet Count 166 K/uL Mean Platelet Volume 10.2 fL Neutrophils (%) (Auto) 54.8 % Lymphocytes (%) (Auto) 30.2 % Monocytes (%) (Auto) 11.7 % Eosinophils (%) (Auto) 2.7 % Basophils (%) (Auto) 0.3 % Neutrophils # (Auto) 3.22 K/uL Lymphocytes # (Auto) 1.78 K/uL Monocytes # (Auto) 0.69 K/uL Eosinophils # (Auto) 0.16 K/uL Basophils # (Auto) 0.02 K/uL RDW Standard Deviation 49.4 fL RDW Coefficient of Variation 15.3 % Immature Granulocyte % (Auto) 0.3 % Immature Granulocyte # (Auto) 0.02 K/uL Prothrombin Time 12.0 SECONDS Prothromb Time International Ratio 1.1 Activated Partial Thromboplast Time 25.0 SECONDS Partial Thromboplastin Ratio 1.0 Sodium Level 138 mmol/L Potassium Level 4.0 mmol/L Chloride Level 105 mmol/L Carbon Dioxide Level 26 mmol/L Anion Gap 7.0 mmol/L Blood Urea Nitrogen 25 mg/dl Creatinine 0.89 mg/dl Est Creatinine Clear Calc Drug Dose 59.0 ml/min Estimated GFR () 72.5 Estimated GFR (Non- 62.5 BUN/Creatinine Ratio 27.7 Random Glucose 98 mg/dl Calcium Level 9.2 mg/dl Troponin I < 0.015 ng/ml < 0.015 ng/ml < 0.015 ng/ml Erythrocyte Sedimentation Rate 23 mm/hr C-Reactive Protein 0.98 mg/dl Triglycerides Level 59 mg/dl Cholesterol Level 98 mg/dl HDL Cholesterol 44 mg/dl LDL Cholesterol, Calculated 42 mg/dl VLDL Cholesterol, Calculated 12 mg/dl Cholesterol/HDL Ratio 2.2 Thyroid Stimulating Hormone (TSH) 1.800 uIu/ml Free Thyroxine 1.06 ng/dl Urine Color YELLOW Urine Appearance CLOUDY Urine pH 7.0 Urine Specific [place] 1.012 Urine Protein NEG Urine Glucose (UA) NEG Urine Ketones NEG Urine Occult Blood 2+ Urine Nitrite POS Urine Bilirubin NEG Urine Urobilinogen NEG Urine Leukocyte Esterase LARGE Urine WBC (Auto) >30 /hpf Urine RBC (Auto) 10-30 /hpf Urine Hyaline Casts (Auto) 0 /lpf Urine Epithelial Cells (Auto) 0-5 /lpf Urine Bacteria (Auto) 4+ Test 09/07/17 08:24 White Blood Count 6.02 K/uL Red Blood Count 4.47 M/uL Hemoglobin 12.9 g/dL Hematocrit 39.6 % Mean Corpuscular Volume 88.6 fL Mean Corpuscular Hemoglobin 28.9 pg Mean Corpuscular Hemoglobin Concent 32.6 g/dl Platelet Count 174 K/uL Mean Platelet Volume 9.8 fL Neutrophils (%) (Auto) 69.6 % Lymphocytes (%) (Auto) 19.1 % Monocytes (%) (Auto) 8.3 % Eosinophils (%) (Auto) 2.5 % Basophils (%) (Auto) 0.3 % Neutrophils # (Auto) 4.19 K/uL Lymphocytes # (Auto) 1.15 K/uL Monocytes # (Auto) 0.50 K/uL Eosinophils # (Auto) 0.15 K/uL Basophils # (Auto) 0.02 K/uL RDW Standard Deviation 49.6 fL RDW Coefficient of Variation 15.3 % Immature Granulocyte % (Auto) 0.2 % Immature Granulocyte # (Auto) 0.01 K/uL Sodium Level 140 mmol/L Potassium Level 4.1 mmol/L Chloride Level 106 mmol/L Carbon Dioxide Level 28 mmol/L Anion Gap 6.0 mmol/L Blood Urea Nitrogen 19 mg/dl Creatinine 0.79 mg/dl Est Creatinine Clear Calc Drug Dose 66.0 ml/min Estimated GFR () 83.7 Estimated GFR (Non- 72.2 BUN/Creatinine Ratio 24.7 Random Glucose 114 mg/dl Calcium Level 9.2 mg/dl Date/Time Source Procedure Growth Status 09/07/17 08:15 Urine , Clean Catch Urine Culture Pending Received Assessment & Plan RECURRENT PERICARDIAL EFFUSION: -recurrent episodes since initial one in Feb 2017 - echo: * -- Conclusions -- * There is mild concentric left ventricular hypertrophy. * The left ventricular wall motion is normal. * The LV Ejection Fraction = 60-65%. * The right ventricle is normal in size and function. * There is a large sized circumferential pericardial effusion. * The maximum diameter of the pericardial fluid in diastole is 2 cm adjacent to the inferior LV wall, 2.2 cm adjacent to the infeorlateral wall , and 2.6 cm adjacent to the lateral wall in the apical 4 chamber view, 3 cm adjacent to the left atrium. * The inferior vena cava is dilated (2.4 cm) with reduced collapsability with sniff indicates an elevated right atrial pressure of 15 mmHg and indicating elevated perciardial pressure. * There are no echocardiographic indications of cardiac tamponade. * Compared to the recent outpatient study performed at [facility] dated 09/02/17 , there has been no significant interval change. * Compared to the most recent study performed at [facility] dated 07/01/17, there has been an interval significant increase in the size and extend of the pericardial effusion. - Dr. Chau recommends that patient be transferred to [facility] for Pericardial Window He has arranged the transfer. Patient agreeable with plan. POSSIBLE UTI - UA: (+) large leuk est, WBC > 30 - Urine culture pending - patient reports vague lower abdominal symptoms the past week - will start empiric Ceftri IV PAROXYSMAL ATRIAL FIBRILLATION: -S/P AV ablation + pacemaker implantation -continued on metoprolol -anticoagulants were stopped due to pericarditis HYPOTHYROIDISM: -continue levothyroxine. -recheck TSH and free T4 DYSLIPIDEMIA: -continue rosuvastatin. BRONCHIECTASIS: -continue Spiriva Disposition transfer to [facility] Current Inpatient Medications: Current Inpatient Medications Medications (Trade) Dose Ordered Sig/Amauri Route Start Time Stop Time Status Last Admin Dose Admin Acetaminophen (Tylenol Tab) 650 mg Q4H PRN PO 09/06/17 20:00 10/06/17 19:59 Ondansetron HCl (Zofran Inj) 4 mg Q6H PRN IV 09/06/17 20:00 10/06/17 19:59 Polyethylene (Miralax Powder Packet) 17 gm DAILY PRN PO 09/06/17 20:00 10/06/17 19:59 Miscellaneous (Iv Fluids Completed) 1 ea PRN PRN N/A 09/06/17 21:00 09/06/18 20:59 Colchicine (Colchicine Tab) 0.6 mg BID PO 09/07/17 09:00 10/07/17 08:59 09/07/17 08:58 0.6 MG Levothyroxine Sodium (Synthroid Tab) 100 mcg DAILYBB PO 09/07/17 06:00 10/07/17 05:59 09/07/17 05:46 100 MCG Metoprolol Tartrate (Lopressor Tab) 25 mg BID PO 09/07/17 09:00 10/07/17 08:59 09/07/17 08:58 25 MG Ranitidine HCl (zANTac TAB) 150 mg BID PO 09/07/17 09:00 10/07/17 08:59 09/07/17 08:58 150 MG Rosuvastatin Calcium (Crestor Tab) 5 mg MoWeFr@0900 PO 09/08/17 09:00 10/08/17 08:59 Sertraline HCl (Zoloft Tab) 100 mg HS PO 2/25/18 21:00 10/07/17 20:59 09/06/17 22:26 100 MG Tiotropium [place] (Spiriva Handihaler Inhaler) 1 puff DAILY INH 09/07/17 09:00 10/07/17 08:59 09/07/17 09:00 1 PUFF Lactobacillus Acidophilus (Floranex Tab) 1 tab DAILY PO 09/07/17 09:00 10/07/17 08:59 09/07/17 08:58 1 TAB Prednisone (PredniSONE TAB) 60 mg DAILY PO 09/08/17 09:00 10/08/17 08:59
[2017-09-07] MEDS ORDERED: PRD20 PO (13:52)
[2017-09-07] MEDS ORDERED: CEFTRIAXONE SOD INJ 1 GM in DEXTROSE 5% ADD-VANTAGE 50ML 50 ML IV SCH (14:00)
--- NOTE | 2017-09-07 14:14 | Discharge Instructions ---
Discharge Instructions Date of Service Sep 07, 2017. Admission Reason for Admission: Chest Pain Discharge Discharge Diagnosis / Problem: RECURRENT PERICARDIAL EFFUSION Discharge Goals Goal(s): Diagnostic testing, Therapeutic intervention Activity Recommendations Activity Level: Ambulates in room . Additional Information Patient informed of condition: Yes Advance Directives: No (UNKNOWN) DNR: No (PATIENT IS A FULL CODE) Level of Care: Other ([facility]) Communicable Disease: No Prognosis: Other (GUARDED) Instructions / Follow-Up Instructions / Follow-Up PLEASE REFER TO SEPARATE MEDICAL RECONCILIATION SHEET FOR UPDATE MEDICATIONS AND REFER TO HOSPITAL DISCHARGE SUMMARY. Current Hospital Diet Patient's current hospital diet: AHA Diet (Heart Healthy) Discharge Diet Recommended Diet: AHA Diet (Heart Healthy) Procedures Procedures Performed: ECHO Pending Studies Studies pending at discharge: yes List of pending studies: PLEASE REFER TO HOSPITAL DISCHARGE SUMMARY. Physician Orders On Transfer Special Precautions: PLEASE REFER TO SEPARATE MEDICAL RECONCILIATION SHEET FOR UPDATE MEDICATIONS AND REFER TO HOSPITAL DISCHARGE SUMMARY. Laboratory Results Lipid Panel Test 09/07/17 05:59 Range/Units Triglycerides Level 59 0-150 mg/dl Cholesterol Level 98 0-200 mg/dl HDL Cholesterol 44 mg/dl Cholesterol/HDL Ratio 2.2 LDL Cholesterol, Calculated 42 mg/dl Medical Emergencies . Who to Call and When: Medical Emergencies: If at any time you feel your situation is an emergency, please call 911 immediately. . Non-Emergent Contact Non-Emergency issues call your: Primary Care Provider, Legal Receptionist Call Non-Emergent contact if: you have a fever, your pain is not controlled, your pain is worsening, you have any medication questions . . "Provider Documentation" section prepared by Ramos Obando. . Core Measure Problem Core Measures: None
--- NOTE | 2017-09-07 14:23 | Discharge Summary ---
Discharge Summary Date of Service Sep 07, 2017. Discharge Summary Admission Date: Sep 06, 2017 at 20:02 Discharge Date: Sep 07, 2017 Principal Diagnosis: RECURRENT PERICARDIAL EFFUSION: Secondary Diagnoses/Problems: PLEASE REFER TO HOSPITAL COURSE BELOW. Procedures: ECHO * Name: DAVIDE BARRIOS Study Date: 09/07/2017 06:38 AM BP: 110/61 mmHg * Patient Location: [facility]\\S\\29\\S\\1 HR: 80 * : 1940 (M/d/yyyy) Gender: Female Height: 67 in * Age: 76 yrs Ethnicity: CA Weight: 185 lb * Ordering Physician: Donte Bocanegra * Referring Physician: Self, Referred * Performed By: Chayo Hsieh RCS * * Reason For Study: REASSESS PERICARDIAL EFFUSION * BSA: 2.0 m2 * -- Conclusions -- * There is mild concentric left ventricular hypertrophy. * The left ventricular wall motion is normal. * The LV Ejection Fraction = 60-65%. * The right ventricle is normal in size and function. * There is a large sized circumferential pericardial effusion. * The maximum diameter of the pericardial fluid in diastole is 2 cm adjacent to the inferior LV wall, 2.2 cm adjacent to the infeorlateral wall , and 2.6 cm adjacent to the lateral wall in the apical 4 chamber view, 3 cm adjacent to the left atrium. * The inferior vena cava is dilated (2.4 cm) with reduced collapsability with sniff indicates an elevated right atrial pressure of 15 mmHg and indicating elevated perciardial pressure. * There are no echocardiographic indications of cardiac tamponade. * Compared to the recent outpatient study performed at [facility] dated 09/02/17 , there has been no significant interval change. * Compared to the most recent study performed at [facility] dated 07/01/17, there has been an interval significant increase in the size and extend of the pericardial effusion. Procedure Details * A complete two-dimensional transthoracic echocardiogram was performed (2D, M- mode, Doppler and color flow Doppler). Left Ventricle * The left ventricle is normal in size. * There is mild concentric left ventricular hypertrophy. * Left ventricular systolic function is normal. * Ejection Fraction = 60-65%. * The left ventricular wall motion is normal. Right Ventricle * The right ventricle is normal in size and function. Atria * The left atrium is severely dilated. * Right atrial size is normal. * A pacemaker lead is noted in the right atrium. * There is no evidence of atrial septal defect, but resolution does not allow assessment for a patent foramen ovale. Mitral Valve * The mitral valve is normal. * There is no mitral valve stenosis. * There is mild mitral 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. Tricuspid Valve * The tricuspid valve anatomy is normal. * There is no tricuspid stenosis. * There is mild tricuspid 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. * Doppler findings do not suggest pulmonary hypertension. Aortic Valve * The aortic valve is trileaflet. * Aortic stenosis is absent. * There is no significant aortic 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. Pulmonic Valve * The pulmonary valve is not well seen, but the Doppler examination is normal without significant 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 or stenosis. Great Vessels * The aortic root and proximal ascending aorta are normal sized. Pericardium/Pleural * There is a large sized circumferential pericardial effusion. The maximum diameter of the pericardial fluid in diastole is 2 cm adjacent to the inferior LV wall, 2.2 cm adjacent to the infeorlateral wall , and 2.6 cm adjacent to the lateral wall in the apical 4 chamber view, 3 cm adjacent to the left atrium. * There are no echocardiographic indications of cardiac tamponade. Right Ventricle * There is a pacemaker lead noted in the right ventricle. Great Vessels * Dilated inferior vena cava with reduced collapsability with sniff indicates an elevated right atrial pressure of 15 mmHg CHEST ONE VIEW PORTABLE CLINICAL HISTORY: Atypical chest pain. Headache. COMPARISON STUDY: 06/30/2017 FINDINGS: The heart is enlarged. There is a left subclavian dual-chamber central venous pacemaker present. There is bibasal atelectasis. There is no failure. There is no lobar consolidation. There are no significant pleural effusions.[ IMPRESSION: No active disease in the chest. 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 REFER TO SEPARATE MEDICAL RECONCILIATION SHEET FOR UPDATED MEDICATION LIST. Medication Reconciliation New Medications: Prednisone (Prednisone) 20 Mg Tab 60 MG PO DAILY for 10 Days, #30 TAB Continued Medications: Biotin (Biotin) 5 Mg Tab 5 MG PO 3XWK TAKES FRIDAY/FRIDAY/FRIDAY Calcium Citrate-Vitamin D (Calcium Citrate + D) 1 Tab Tab 1 TAB PO BID Colchicine (Colchicine) 0.6 Mg Tab 0.6 MG PO BID, TAB Flaxseed (Linseed) (Flax Seed Oil) 1,000 Mg Cap 1000 MG PO 3XWK Levothyroxine Sodium (Levothyroxine Sodium) 100 Mcg Tab 100 MCG PO QAM Metoprolol Tartrate (Lopressor) (Lopressor) 25 Mg Tab 25 MG PO BID, TAB Probiotic Product (Probiotic) 1 Tab Tab 1 TAB PO DAILY FRIDAY, FRIDAY, FRIDAY Ranitidine (Zantac) 150 Mg Tab 150 MG PO BID Rosuvastatin Calcium (Crestor) 5 Mg Tab 5 MG PO 3XWK, TAB 5 Refills EVERY FRIDAY/FRIDAY/FRIDAY Sertraline (Zoloft) 100 Mg Tab 100 MG PO HS Tiotropium [place] (Spiriva Handihaler) 30 Puff/540 Mcg Aerp 1 CAP INH DAILY, INHALER Discontinued Medications: Aspirin (Aspirin Ec) 325 Mg Tab 650 MG PO DAILY Torsemide (Torsemide) 5 Mg Tab 5 MG PO DAILY PRN for Shortness of Breath Admission Information HPI (per Admitting provider): Patient is a 76 yo female who presents to the hospital for complaints of chest pain, with associated SOB, that has been progressively worsening over the past 3 days. The patient states she has actually been feeling tired, SOB, SWAIN, and some intermittent sharp chest pains for the last 3 weeks; she underwent an outpatient TTE about 4 days ago that showed moderate to large pericardial effusion similar to her previous TTE from the beginning of the month, however she did have a slight increase in the diameter of the IVC from 2.1 cm to 2.4 cm and persistent evidence of elevated RA pressure. The patient has been on colchicine and ASA and has been compliant with meds. She also notes a 5 lbs weight gain and has been taking torsemide daily as discussed with Cardiology. The patient felt as though her sharp chest pain was more intense and more frequent today, and seemed to last longer than it has the last few days which prompted her to come to the hospital. She mentions her symptoms feel different from last February 2017 when she had her first bout of pericardial effusion. She denies orthopnea but states she normally would never lay flat so isn't sure. She reports worsening SWAIN and SOB at rest over the last few days. She also reports sharp pain radiating into her mid-back. She reports some dizziness with standing up but no syncope. She also reports a non-productive cough. She denies any fever or chills. She also mentions having a headache today which has since improved with tylenol but denies any visual changes. The patient reports having a viral URI from June until July and reports she had a difficult time recovering from that illness but her cough, congestion , and sore throat symptoms have completely resolved. No other recent illness. No recent antibiotic use other than 1 dose of amoxicillin for dental work 1 month ago. Physical Exam (per Admitting): General Appearance: WD/WN, no apparent distress Head: normocephalic, atraumatic Eyes: PERRL, EOMI, sclerae normal (conjunctivae clear) ENT: hearing grossly normal Neck: supple, no JVD, no carotid bruits, trachea midline Respiratory/Chest: chest non-tender, lungs clear, normal breath sounds, no respiratory distress, no accessory muscle use Cardiovascular: regular rate, rhythm, no edema, no gallop, no JVD, no murmur , normal peripheral pulses Abdomen/GI: normal bowel sounds, non tender, soft, no organomegaly Back: no CVA tenderness Extremities/Musculoskelatal: normal inspection, no calf tenderness, no pedal edema Neurologic/Psych: no motor/sensory deficits, alert, normal mood/affect, oriented x 3 Skin: normal color, warm/dry, no rash Hospital Course RECURRENT PERICARDIAL EFFUSION: -recurrent episodes since initial one in Feb 2017 - echo: * -- Conclusions -- * There is mild concentric left ventricular hypertrophy. * The left ventricular wall motion is normal. * The LV Ejection Fraction = 60-65%. * The right ventricle is normal in size and function. * There is a large sized circumferential pericardial effusion. * The maximum diameter of the pericardial fluid in diastole is 2 cm adjacent to the inferior LV wall, 2.2 cm adjacent to the infeorlateral wall , and 2.6 cm adjacent to the lateral wall in the apical 4 chamber view, 3 cm adjacent to the left atrium. * The inferior vena cava is dilated (2.4 cm) with reduced collapsability with sniff indicates an elevated right atrial pressure of 15 mmHg and indicating elevated perciardial pressure. * There are no echocardiographic indications of cardiac tamponade. * Compared to the recent outpatient study performed at [facility] dated 09/02/17 , there has been no significant interval change. * Compared to the most recent study performed at [facility] dated 07/01/17, there has been an interval significant increase in the size and extend of the pericardial effusion. - Dr. Bocanegra recommends that patient be transferred to [facility] for Pericardial Window (PLEASE REFER TO HIS NOTES BELOW). He has arranged the transfer. Patient agreeable with plan. POSSIBLE UTI - UA: (+) large leuk est, WBC > 30 - Urine culture pending - patient reports vague lower abdominal symptoms the past week - will start empiric Ceftri IV PAROXYSMAL ATRIAL FIBRILLATION: -S/P AV ablation + pacemaker implantation -continued on metoprolol -anticoagulants were stopped due to pericarditis HYPOTHYROIDISM: -continue levothyroxine. -recheck TSH and free T4 DYSLIPIDEMIA: -continue rosuvastatin. BRONCHIECTASIS: -continue Spiriva Disposition transfer to [facility] CARDIOLOGY SERVICE NOTES DR. BOCANEGRA 1. Recurrent pericarditis, refractory to multiple past trials of conservative medication therapy 2. History of paroxysmal, now chronic persistent atrial fibrillation, status post dual-chamber pacemaker, AV junction ablation, Nov, 2016, [facility] 3. History of diastolic dysfunction, volume overload, volume status considered euvolemic at present 4. Not an anticoagulation due to recurrent pericardial effusion Discussion/recommendations: The patient has had multiple admissions since February, for her pericardial disease. Initially, it was felt to potentially be due to a microperforation from her pacemaker placement or a postprocedure inflammatory reaction. Anticoagulation had therefore been discontinued, and her effusion has persisted despite medication therapy with colchicine which she has been on chronically, as well as aspirin and prednisone tapers. Although the effusion size had improved to some degree over the last few months, she has had 4 echocardiograms in the last 5 weeks with subtle increase in the size of pericardial effusion on each the last 3 studies, and noted plethora of the inferior vena cava. The patient is a long-standing history of atypical chest discomfort, and I'm not convinced that her chest discomfort is consistent with angina or pericarditis. I am however concerned that her progressive dyspnea is related to her pericardial effusion. The patient has a chronic complaint of dyspnea with exertion, but she notes progressive easy fatigability and shortness of breath over the last few weeks especially within the last week and she states that she has difficulty walking from one side of her apartment to the other. At present, I recommend holding her high-dose aspirin 650 mg daily in preparation for invasive procedure. The tentative plan previously had been for her to have another trial of prednisone. Therefore she has received 60 mg of prednisone today, as well as her colchicine. Personal opinion however is that I think the patient will be best served by proceeding with a surgical pericardial window for both diagnostic and therapeutic purposes. I discussed her case with her primary sap bobj developer, Dr Gonzalez , and Dr Garcia of cardiothoracic surgery at [facility]. Dr Garcia has agreed to accept her in transfer for consideration of pericardial window. I think that this is a better approach than pericardiocentesis in this case as it will allow biopsy of her pericardium and short term and penitentiary drainage. I would have concerns that if pericardiocentesis was performed, that her fluid would reaccumulate within the next few weeks based on her echocardiographic and clinical findings. Patient was agreeable to the plan. She is to be transferred by [facility] ground when a bed is available. Total time spent on discharge = 35 MINUTES This includes examination of the patient, discharge planning, medication reconciliation, and communication with other providers. Discharge Instructions Discharge Instructions Date of Service Sep 07, 2017. Admission Reason for Admission: Chest Pain Discharge Discharge Diagnosis / Problem: RECURRENT PERICARDIAL EFFUSION Discharge Goals Goal(s): Diagnostic testing, Therapeutic intervention Activity Recommendations Activity Level: Ambulates in room . Additional Information Patient informed of condition: Yes Advance Directives: No (UNKNOWN) DNR: No (PATIENT IS A FULL CODE) Level of Care: Other ([facility]) Communicable Disease: No Prognosis: Other (GUARDED) Instructions / Follow-Up Instructions / Follow-Up PLEASE REFER TO SEPARATE MEDICAL RECONCILIATION SHEET FOR UPDATE MEDICATIONS AND REFER TO HOSPITAL DISCHARGE SUMMARY. Current Hospital Diet Patient's current hospital diet: AHA Diet (Heart Healthy) Discharge Diet Recommended Diet: AHA Diet (Heart Healthy) Procedures Procedures Performed: ECHO Pending Studies Studies pending at discharge: yes List of pending studies: PLEASE REFER TO HOSPITAL DISCHARGE SUMMARY. Physician Orders On Transfer Special Precautions: PLEASE REFER TO SEPARATE MEDICAL RECONCILIATION SHEET FOR UPDATE MEDICATIONS AND REFER TO HOSPITAL DISCHARGE SUMMARY. Laboratory Results Lipid Panel Test 09/07/17 05:59 Range/Units Triglycerides Level 59 0-150 mg/dl Cholesterol Level 98 0-200 mg/dl HDL Cholesterol 44 mg/dl Cholesterol/HDL Ratio 2.2 LDL Cholesterol, Calculated 42 mg/dl Medical Emergencies . Who to Call and When: Medical Emergencies: If at any time you feel your situation is an emergency, please call 911 immediately. . Non-Emergent Contact Non-Emergency issues call your: Primary Care Provider, Tax Examiner Call Non-Emergent contact if: you have a fever, your pain is not controlled, your pain is worsening, you have any medication questions . . "Provider Documentation" section prepared by Ramos Obando. . Core Measure Problem Core Measures: None
[2017-09-07 15:31] VITALS: BP 119/73; PULSE 73; TEMP 36.8; O2SAT 95
[2017-09-07] MEDS ORDERED: SERTRALINE HCL 100 MG TAB PO SCH (21:00)
[2017-09-08] MEDS ORDERED: ROSUVASTATIN CALCIUM 10 MG TAB PO SCH (09:00)
== END 2017-09-07 15:32 | disposition short-term general hospital (02) ==
LOC: C.EDB 17:17 → C.2T 20:02 → ENRESERV 20:16
PROVIDERS: ADMIT Internal Medicine; ATTEND Internal Medicine
DX: I31.3 Pericardial effusion (noninflammatory) (principal); I31.4 Cardiac tamponade; J47.9 Bronchiectasis, uncomplicated; K21.9 Gastro-esophageal reflux disease without esophagitis; E03.9 Hypothyroidism, unspecified; M19.90 Unspecified osteoarthritis, unspecified site; I48.0 Paroxysmal atrial fibrillation; M81.0 Age-related osteoporosis without current pathological fracture; E78.5 Hyperlipidemia, unspecified; Z95.0 Presence of cardiac pacemaker; Z79.82 Long term (current) use of aspirin; Z88.1 Allergy status to other antibiotic agents; Z91.013 Allergy to seafood; Z90.49 Acquired absence of other specified parts of digestive tract; Z98.51 Tubal ligation status; Z79.899 Other long term (current) drug therapy; Z91.041 Radiographic dye allergy status; Z88.8 Allergy status to other drugs, medicaments and biological substances

== ENCOUNTER 2017-09-18 19:31 | Emergency (ER) | payer OTHER ==
[~2017-09-18] VITALS: Ht 171.5 cm; Wt 83.7 kg
[~2017-09-18 19:31] MED LIST changes: -ASPI81TA28 PO; -FLUT0.15 NAE; -LEVO100T7 PO; +PRD20 PO; -RANI150T85 PO; -ROSU5TAB PO; -SERT-234 PO; -SPRIN/30 INH; -TORS5TAB10 PO
[2017-09-18 19:38] VITALS: TEMP 36.6; Ht 171.5 cm; Wt 83.7 kg
[2017-09-18] MEDS ORDERED: SODIUM CHLORIDE 0.9% 1000ML 1,000 ML IV STA (20:08)
[2017-09-18 20:22] LABS: BASO % 0.5 %; BASO ABS # 0.04 K/uL (0-0.2); EOS ABS # 0.61 K/uL (0-0.5); HEMOGLOBIN 12.7 g/dL (12.0-16.0); IG# 0.06 K/uL (0.00-0.02); LYMPH % 29.9 %; LYMPH ABS # 2.62 K/uL (1.2-3.4); MEAN CORPUSCULAR HGB CONC 32.6 g/dl (32-36); MEAN PLATELET VOLUME 9.6 fL (7.4-10.4); MONO % 8.9 %; MONO ABS # 0.78 K/uL (0.11-0.59); NEUT ABS # 4.64 K/uL (1.4-6.5); PLATELET COUNT 238 K/uL (130-400); RED CELL DISTRIBUTION WIDTH CV 16.5 % (11.5-14.5); RED CELL DISTRIBUTION WIDTH SD 53.9 fL (36.4-46.3); WHITE BLOOD COUNT 8.75 K/uL (4.8-10.8)
[2017-09-18 20:30] LABS: ALBUMIN 3.9 gm/dl (3.4-5.0); ALT/SGPT 38 U/L (12-78); BLOOD UREA NITROGEN 22 mg/dl (7-18); CALCIUM 9.1 mg/dl (8.5-10.1); CARBON DIOXIDE 26 mmol/L (21-32); CREATININE 0.88 mg/dl (0.60-1.20); GLUCOSE 104 mg/dl (70-99); LIPASE 221 U/L (73-393); SODIUM 138 mmol/L (136-145)
[2017-09-18 20:36] LABS: ALKALINE PHOSPHATASE 60 U/L (45-117); AST/SGOT 17 U/L (15-37); CKMB 1.9 ng/ml (0.5-3.6); TOTAL PROTEIN 6.7 gm/dl (6.4-8.2)
--- NOTE | 2017-09-18 20:40 | DIAGNOSTIC IMAGING REPORT ---
CHEST ONE VIEW PORTABLE HISTORY: 76 years-old Female Evaluate Fever/Sepsis acute fever and sepsis COMPARISON: Chest radiograph 09/06/2017 TECHNIQUE: Portable AP view of the chest FINDINGS: Cardiac silhouette is again mildly enlarged. Atherosclerosis of the aorta. Left subclavian pacer is noted with leads appearing unchanged. There is no pneumothorax, pleural effusion or focal airspace consolidation. Linear subsegmental bibasilar atelectasis. Bones of the chest appear grossly intact. Degenerative changes are noted about the shoulders and spine. IMPRESSION: Linear subsegmental bibasilar atelectasis without acute process. The above report was generated using voice recognition software. It may contain grammatical, syntax or spelling errors. Electronically signed by: Evert Darling M.D. 09/18/2017 8:39 PM Dictated Date/Time: 09/18/2017 8:38 PM
[2017-09-18] MEDS ORDERED: SPRIN/30 INH (20:41)
[2017-09-18] MEDS ORDERED: SERT-234 PO (20:45)
[2017-09-18] MEDS ORDERED: ROSU5TAB PO (20:45)
[2017-09-18] MEDS ORDERED: RANI150T85 PO (20:45)
[2017-09-18] MEDS ORDERED: LEVO100T7 PO (20:45)
[2017-09-18] MEDS ORDERED: TORS20TA2 PO (20:46)
[2017-09-18 21:10] LABS: INR 1.2 (0.9-1.1); PTT PATIENT 24.4 SECONDS (21.0-31.0)
[2017-09-18 21:23] VITALS: BP 103/58; PULSE 70; O2SAT 97
--- NOTE | 2017-09-18 21:46 | EMERGENCY ROOM VISIT NOTE ---
History Report prepared by Cecily: Raina Helton Under the Supervision of: Dr. Twan Maurice D.O. First contact with patient: 19:56 Chief Complaint: CHEST PAIN Stated Complaint: CHEST PAIN,SWEATING/CHILLS,PERICARDIAL EFFUSION History of Present Illness The patient is a 76 year old female who presents to the Emergency Room with complaints of an episode of chest pain 2 hours ago. The patient had pericardial window surgery 3 days ago at [place]. The patient developed a pericardial effusion after pacemaker placement. She notes that when the pericardial window surgery was performed, her blood pressure increased by 20 points. The patient had been doing well since the surgery. Today around 1800, she started feeling clammy and diaphoretic. She developed central chest pain which went through to the back. She checked her blood pressure and found that it was 94/58 which was a drop from her normal blood pressure which is normally in the 120s. She was told to go to the ED if her blood pressure dropped. Her symptoms lasted for around 1 hour. The patient is currently on aspirin. Source of History: patient Onset: 2 hours ago Position: chest (central) Quality: other (pain) Timing: other (episodic) Associated Symptoms: + diaphoresis, + back pain Note: Pt reports low blood pressure. Review of Systems See HPI for pertinent positives & negatives. A total of 10 systems reviewed and were otherwise negative. Past Medical & Surgical Medical Problems: (1) Bronchiectasis (2) Chest pain (3) GERD (gastroesophageal reflux disease) (4) History of pancreatitis (5) History of pericarditis (6) HLD (hyperlipidemia) (7) Hypothyroidism (8) Osteoarthritis (9) Osteoporosis (10) Paroxysmal atrial fibrillation (11) Pericardial effusion Surgical Problems: (1) H/O arthroscopic knee surgery (2) H/O partial thyroidectomy (3) History of appendectomy (4) History of sinus surgery (5) History of tonsillectomy (6) History of tubal ligation (7) Hx of cholecystectomy (8) Status post atrioventricular brayan ablation (9) Status post cardiac pacemaker procedure Family History Patient reports no known family medical history. Social History Smoking Status: Never Smoker Alcohol Use: occasionally Drug Use: none Housing Status: lives with family Occupation Status: retired Current/Historical Medications Scheduled Biotin (Biotin), 5 MG PO 3XWK Calcium Citrate-Vitamin D (Calcium Citrate + D), 1 TAB PO BID Colchicine (Colchicine), 0.6 MG PO BID Flaxseed (Linseed) (Flax Seed Oil), 1,000 MG PO 3XWK Levothyroxine Sodium (Levothyroxine Sodium), 100 MCG PO QAM Metoprolol Tartrate (Lopressor) (Lopressor), 25 MG PO BID Ranitidine (Zantac), 150 MG PO BID Rosuvastatin Calcium (Crestor), 5 MG PO 3XWK Sertraline (Zoloft), 100 MG PO HS Tiotropium [place] (Spiriva Handihaler), 1 CAP INH DAILY Torsemide (Demadex), 1 TAB PO DAILY Allergies Coded Allergies: Iodinated Diagnostic Agents (Verified Allergy, Severe, ANAPHYLAXIS, ) Shellfish (Verified Allergy, Severe, "Seafood" -- ANAPHYLAXIS, 06/30/17) Erythromycin (Verified Allergy, Intermediate, RASH, 06/30/17) Simvastatin (Verified Allergy, Intermediate, RASH, 06/30/17) Celecoxib (Verified Allergy, Mild, RASH, 06/30/17) Nystatin (Verified Allergy, Mild, RASH, 06/30/17) Rivaroxaban (Verified Adverse Reaction, Severe, 0, 06/30/17) possivble hemorrhagic pericardial effusion Moxifloxacin (Verified Adverse Reaction, Intermediate, HALUCINATIONS, ) Physical Exam Vital Signs Date Time Temp Pulse Resp B/P (MAP) Pulse Ox O2 Delivery O2 Flow Rate FiO2 09/18/17 21:23 70 18 103/58 97 Room Air 09/18/17 20:25 70 104/58 83 109/75 105 109/70 09/18/17 20:08 70 09/18/17 20:08 Room Air 09/18/17 19:38 36.6 74 18 112/66 95 Room Air Physical Exam CONSTITUTIONAL/VITAL SIGNS: Reviewed / noted above. GENERAL: Non-toxic in appearance. INTEGUMENTARY: Warm, dry, and [place]. Small incision in the substernal region from her recent surgery. No evidence of infection. HEAD: Normocephalic. EYES: without scleral icterus or trauma. ENT/OROPHARYNX: clear and moist. LYMPHADENOPATHY/NECK: Is supple without lymphadenopathy or meningismus. RESPIRATORY: Lungs clear and equal. CARDIOVASCULAR: Regular rate and rhythm. GI/ABDOMEN: Soft and nontender. No organomegaly or pulsatile mass. No rebound or guarding. Normal bowel sounds. EXTREMITIES: Warm and well perfused. BACK: No CVA tenderness. NEUROLOGICAL: Intact without focal deficits. PSYCHIATRIC: normal affect. MUSCULOSKELETAL: Normally developed with good muscle tone. Medical Decision & Procedures ER Provider Diagnostic Interpretation: X ray results and stated below per my interpretation and radiology interpretation. CHEST ONE VIEW PORTABLE HISTORY: 76 years-old Female Evaluate Fever/Sepsis acute fever and sepsis COMPARISON: Chest radiograph 09/06/2017 TECHNIQUE: Portable AP view of the chest FINDINGS: Cardiac silhouette is again mildly enlarged. Atherosclerosis of the aorta. Left subclavian pacer is noted with leads appearing unchanged. There is no pneumothorax, pleural effusion or focal airspace consolidation. Linear subsegmental bibasilar atelectasis. Bones of the chest appear grossly intact. Degenerative changes are noted about the shoulders and spine. IMPRESSION: Linear subsegmental bibasilar atelectasis without acute process. The above report was generated using voice recognition software. It may contain grammatical, syntax or spelling errors. Electronically signed by: Evert Darling M.D. 09/18/2017 8:39 PM Dictated Date/Time: 09/18/2017 8:38 PM Laboratory Results 09/18/17 20:00 Red Blood Count 4.38, Mean Corpuscular Volume 89.0, Mean Corpuscular Hemoglobin 29.0, Mean Corpuscular Hemoglobin Concent 32.6, Mean Platelet Volume 9.6, Neutrophils (%) (Auto) 53.0, Lymphocytes (%) (Auto) 29.9, Monocytes (%) (Auto) 8.9, Eosinophils (%) (Auto) 7.0, Basophils (%) (Auto) 0.5, Neutrophils # (Auto) 4.64, Lymphocytes # (Auto) 2.62, Monocytes # (Auto) 0.78, Eosinophils # (Auto) 0.61, Basophils # (Auto) 0.04 09/18/17 20:00 Test 09/18/17 00:00 09/18/17 20:00 09/18/17 20:40 Urine Color YELLOW Urine Appearance CLEAR (CLEAR) Urine pH 6.5 (4.5-7.5) Urine Specific [place] 1.008 (1.000-1.030) Urine Protein NEG (NEG) Urine Glucose (UA) NEG (NEG) Urine Ketones NEG (NEG) Urine Occult Blood 1+ (NEG) Urine Nitrite NEG (NEG) Urine Bilirubin NEG (NEG) Urine Urobilinogen NEG (NEG) Urine Leukocyte Esterase NEG (NEG) Urine WBC (Auto) 1-5 /hpf (0-5) Urine RBC (Auto) 5-10 /hpf (0-4) Urine Hyaline Casts (Auto) 0 /lpf (0-5) Urine Epithelial Cells (Auto) 5-10 /lpf (0-5) Urine Bacteria (Auto) NEG (NEG) White Blood Count 8.75 K/uL (4.8-10.8) Red Blood Count 4.38 M/uL (4.2-5.4) Hemoglobin 12.7 g/dL (12.0-16.0) Hematocrit 39.0 % (37-47) Mean Corpuscular Volume 89.0 fL (80-100) Mean Corpuscular Hemoglobin 29.0 pg (25-34) Mean Corpuscular Hemoglobin Concent 32.6 g/dl (32-36) Platelet Count 238 K/uL (130-400) Mean Platelet Volume 9.6 fL (7.4-10.4) Neutrophils (%) (Auto) 53.0 % Lymphocytes (%) (Auto) 29.9 % Monocytes (%) (Auto) 8.9 % Eosinophils (%) (Auto) 7.0 % Basophils (%) (Auto) 0.5 % Neutrophils # (Auto) 4.64 K/uL (1.4-6.5) Lymphocytes # (Auto) 2.62 K/uL (1.2-3.4) Monocytes # (Auto) 0.78 K/uL (0.11-0.59) Eosinophils # (Auto) 0.61 K/uL (0-0.5) Basophils # (Auto) 0.04 K/uL (0-0.2) RDW Standard Deviation 53.9 fL (36.4-46.3) RDW Coefficient of Variation 16.5 % (11.5-14.5) Immature Granulocyte % (Auto) 0.7 % Immature Granulocyte # (Auto) 0.06 K/uL (0.00-0.02) Anion Gap 6.0 mmol/L (3-11) Est Creatinine Clear Calc Drug Dose 60.1 ml/min Estimated GFR () 73.5 Estimated GFR (Non- 63.4 BUN/Creatinine Ratio 25.1 (10-20) Calcium Level 9.1 mg/dl (8.5-10.1) Total Bilirubin 0.4 mg/dl (0.2-1) Direct Bilirubin 0.1 mg/dl (0-0.2) Aspartate Amino Transf (AST/SGOT) 17 U/L (15-37) Alanine Aminotransferase (ALT/SGPT) 38 U/L (12-78) Alkaline Phosphatase 60 U/L (45-117) Total Creatine Kinase 55 U/L (26-192) Creatine Kinase MB 1.9 ng/ml (0.5-3.6) Creatine Kinase MB Ratio 3.5 (0-3.0) Troponin I < 0.015 ng/ml (0-0.045) Total Protein 6.7 gm/dl (6.4-8.2) Albumin 3.9 gm/dl (3.4-5.0) Lipase 221 U/L (73-393) Prothrombin Time 12.9 SECONDS (9.0-12.0) Prothromb Time International Ratio 1.2 (0.9-1.1) Activated Partial Thromboplast Time 24.4 SECONDS (21.0-31.0) Partial Thromboplastin Ratio 0.9 Laboratory results as stated above per my review. Medications Administered Medications (Trade) Dose Ordered Sig/Amauri Route Start Time Stop Time Status Last Admin Dose Admin Sodium Chloride 1,000 ml @ 999 mls/hr Q1H1M STAT IV 09/18/17 20:08 09/18/17 21:08 DC 09/18/17 20:17 999 MLS/HR ECG Per My Interpretation Indication: chest pain Rate (beats per minute): 74 Rhythm: other (paced ventricular rhythm) Findings: no ectopy, other (no ST elevation) ED Course 2001: Previous medical records were reviewed. The patient was evaluated in room C7. A complete history and physical examination was performed. 2007: NSS 1000 ml @ 999 mls/hr IV. 0: On reevaluation, the patient is resting comfortably. I discussed the results and findings with the patient. She verbalized agreement of the treatment plan. She was discharged home. Medical Decision Differential includes acute coronary syndrome, myocardial infarction, CVA, TIA, anemia, infection, pneumonia, UTI, pyelonephritis, poor nutrition, dehydration, electrolyte disturbance,hypoglycemia. This is a 76-year-old female who presents to the ED with a chief complaint of feeling okay earlier today. Tonight around 6 PM she felt a little clammy and developed a central pain that radiated into her back. This lasted for about an hour. The patient states that she also felt a little lightheaded. Blood pressure at home was 110/87. She then rechecked it and it was 94/58. Because of the patient's recent history with a pericardial effusion requiring a pericardial window last week, the patient came in for evaluation. She has been on torsemide since she was discharged from [facility]. She states that she is unsure why she was taking this. She did not have any congestive heart failure or swelling in her legs. Patient has stable vital signs here. She is running a little on the low side. Orthostatic vital signs revealed a stable blood pressure but the heart rate increased from 70-105 with standing. The patient's chest x-ray did not show acute process. Troponin was negative, complete metabolic panel was unremarkable with the exception of a BUN of 22, CBC did not reveal leukocytosis or anemia. EKG showed a ventricular paced rhythm at a rate of 74. I did perform a bedside ultrasound of the heart that revealed no pericardial effusion. The patient was told the results of the test. She was hydrated with a liter of normal saline IV. She was feeling better and was felt to be stable for discharge. She was told to follow-up with her doctors this week and otherwise return for any worsening or new symptoms. Medication Reconcilliation Current Medication List: was personally reviewed by me Blood Pressure Screening Patient's blood pressure: Normal blood pressure Blood pressure disposition: Did not require urgent referral Impression Primary Impression: Dehydration Additional Impression: Precordial chest pain Scribe Attestation The scribe's documentation has been prepared under my direction and personally reviewed by me in its entirety. I confirm that the note above accurately reflects all work, treatment, procedures, and medical decision making performed by me. Departure Information Dispostion Home / Self-Care Referrals Trang Allan D.O. (PCP) Patient Instructions My [facility] Additional Instructions Follow-up with your doctor for further care and evaluation in 1-5 days. Return to the emergency department for worsening or new symptoms or any concerns. You have been examined and treated today on an emergency basis only. This is not a substitute for, or an effort to provide, complete comprehensive medical care. It is impossible to recognize and treat all injuries or illnesses in a single emergency department visit. It is therefore important that you follow up closely with your doctor. Call as soon as possible for an appointment. Problem Qualifiers
== END 2017-09-18 21:53 | disposition home or self-care (01) ==
LOC: C.EDB 19:33 → C.EDC 21:53
DX: E86.0 Dehydration (principal); R07.2 Precordial pain; M54.9 Dorsalgia, unspecified; R61 Generalized hyperhidrosis; Z98.890 Other specified postprocedural states; E03.9 Hypothyroidism, unspecified; E78.5 Hyperlipidemia, unspecified; K21.9 Gastro-esophageal reflux disease without esophagitis; M19.90 Unspecified osteoarthritis, unspecified site; Z79.899 Other long term (current) drug therapy; Z88.1 Allergy status to other antibiotic agents; Z88.8 Allergy status to other drugs, medicaments and biological substances; Z91.041 Radiographic dye allergy status; Z91.013 Allergy to seafood

== ENCOUNTER 2017-09-19 21:16 | Emergency (ER) | payer OTHER ==
[~2017-09-19] VITALS: Ht 171.5 cm; Wt 85.1 kg
[~2017-09-19 21:16] MED LIST changes: +LEVO100T7 PO; +RANI150T85 PO; +ROSU5TAB PO; +SERT-234 PO; +SPRIN/30 INH; +TORS20TA2 PO
[2017-09-19 21:26] VITALS: TEMP 36.4; Ht 171.5 cm; Wt 85.1 kg
--- NOTE | 2017-09-19 22:20 | EMERGENCY ROOM VISIT NOTE ---
History Report prepared by Cecily: Ruben Bella Under the Supervision of: Dr. Mary Price D.O. First contact with patient: 22:11 Chief Complaint: WOUND INFECTION Stated Complaint: PAIN IN INCISION AREA/SWELLING SURGERY ON 09/10 History of Present Illness The patient is a 76 year old female who presents to the Emergency Room with complaints of worsening pain in the left chest beginning yesterday. The patient notes that she had a pacemaker implanted which bled into her pericardial sac. She states that a pericardial effusion was found in February. The patient reports [place] where she was told that there was 1 pint of blood surrounding her heart. The patient came to the ED was transferred to [place] on September 08 to have a pericardial window performed. The patient states that her post op recovery was going well until she began to experience worsening pain in the left side of her chest beginning yesterday. The patient states that the pain is worsened upon movement, and rates the pain as an 8/10. The patient reports having a distended abdomen since the surgery, which has especially worsened since yesterday. She also notes experiencing chills and frequent sweating episodes. The patient reports taking 650 mg Aspirin twice per day as a blood thinner. She denies any fevers, nausea, vomiting, or swelling of the extremities. Patient states she just stopped steroids on Friday. Source of History: patient Onset: yesterday Position: chest (left) Symptom Intensity: 8/10 Quality: other (pain) Timing: worsening Associated Symptoms: + chills, No fevers, No nausea, No vomiting Note: Associated Symptoms: Distended Abdomen, frequent sweating episodes. Denies: Swelling of extremities. Review of Systems See HPI for pertinent positives & negatives. A total of 10 systems reviewed and were otherwise negative. Past Medical & Surgical Medical Problems: (1) Bronchiectasis (2) Chest pain (3) GERD (gastroesophageal reflux disease) (4) History of pancreatitis (5) History of pericarditis (6) HLD (hyperlipidemia) (7) Hypothyroidism (8) Osteoarthritis (9) Osteoporosis (10) Paroxysmal atrial fibrillation (11) Pericardial effusion Surgical Problems: (1) H/O arthroscopic knee surgery (2) H/O partial thyroidectomy (3) History of appendectomy (4) History of sinus surgery (5) History of tonsillectomy (6) History of tubal ligation (7) Hx of cholecystectomy (8) Status post atrioventricular brayan ablation (9) Status post cardiac pacemaker procedure Family History Patient reports no known family medical history. Social History Smoking Status: Never Smoker Alcohol Use: occasionally Drug Use: none Housing Status: lives with family Occupation Status: retired Current/Historical Medications Scheduled Biotin (Biotin), 5 MG PO 3XWK Calcium Citrate-Vitamin D (Calcium Citrate + D), 1 TAB PO BID Colchicine (Colchicine), 0.6 MG PO BID Flaxseed (Linseed) (Flax Seed Oil), 1,000 MG PO 3XWK Levothyroxine Sodium (Levothyroxine Sodium), 100 MCG PO QAM Metoprolol Tartrate (Lopressor) (Lopressor), 25 MG PO BID Ranitidine (Zantac), 150 MG PO BID Rosuvastatin Calcium (Crestor), 5 MG PO 3XWK Sertraline (Zoloft), 100 MG PO HS Tiotropium [place] (Spiriva Handihaler), 1 CAP INH DAILY Torsemide (Demadex), 1 TAB PO DAILY Allergies Coded Allergies: Iodinated Diagnostic Agents (Verified Allergy, Severe, ANAPHYLAXIS, ) Shellfish (Verified Allergy, Severe, "Seafood" -- ANAPHYLAXIS, 06/30/17) Erythromycin (Verified Allergy, Intermediate, RASH, 06/30/17) Simvastatin (Verified Allergy, Intermediate, RASH, 06/30/17) Celecoxib (Verified Allergy, Mild, RASH, 06/30/17) Nystatin (Verified Allergy, Mild, RASH, 06/30/17) Rivaroxaban (Verified Adverse Reaction, Severe, 0, 06/30/17) possivble hemorrhagic pericardial effusion Moxifloxacin (Verified Adverse Reaction, Intermediate, HALUCINATIONS, ) Physical Exam Vital Signs Date Time Temp Pulse Resp B/P (MAP) Pulse Ox O2 Delivery O2 Flow Rate FiO2 09/20/17 01:38 72 122/69 96 09/19/17 23:14 74 123/75 95 Room Air 09/19/17 21:26 36.4 83 19 137/84 96 Room Air Physical Exam GENERAL: alert, well appearing, well nourished, no distress, non-toxic EYE EXAM: normal conjunctiva, PERRL and EOM's grossly intact OROPHARYNX: no exudate, no erythema, lips, buccal mucosa, and tongue normal and mucous membranes are moist NECK: supple, no nuchal rigidity, no adenopathy, non-tender LUNGS: Clear to auscultation. Normal chest wall mechanics, no wheezes/rhonchi/ rales. HEART: no murmurs, S1 normal and S2 normal ABDOMEN: abdomen soft, non-tender, normo-active bowel sounds, no masses, no rebound or guarding. Two healing surgical incisions one to the lower aspect of the sternum, and a smaller horizontal incision inferior to that one. Both have mild scabs, no drainage, and no surrounding erythema. BACK: Back is symmetrical on inspection and there is no deformity, no midline tenderness, no CVA tenderness. SKIN: no rashes and no bruising UPPER EXTREMITIES: upper extremities are grossly normal. Normal pulses. LOWER EXTREMITIES: No pitting edema. Normal pulses. NEURO EXAM: Normal sensorium, cranial nerves II-XII [grossly] intact, normal speech, no [gross] weakness of arms, no [gross] weakness of legs Medical Decision & Procedures ER Provider Diagnostic Interpretation: Radiology results have been interpreted by the radiologist and reviewed by me. CT CHEST Without Contrast: Prior study from 02/21/17 Interval near resolution of the pericardial effusion. Mild fat stranding just inferior to the xiphoid process level within the subcutaneous tissues, chest wall, and anterior mediastinum likely reflects recent pericardial window postop changes. DDX inflammatory changes. No discrete fluid collection. Stable left chest wall pacemaker Scattered atelectasis bilaterally. No pneumothorax or pleural effusion. Cholecystectomy. Liver low-density lesion, partially visualized. Stable compression deformity of the T11 vertebral body, degenerative changes, kyphosis. Laboratory Results 09/19/17 22:45 Red Blood Count 4.08, Mean Corpuscular Volume 89.5, Mean Corpuscular Hemoglobin 29.7, Mean Corpuscular Hemoglobin Concent 33.2, Mean Platelet Volume 9.1, Neutrophils (%) (Auto) 56.3, Lymphocytes (%) (Auto) 26.9, Monocytes (%) (Auto) 9.6, Eosinophils (%) (Auto) 6.3, Basophils (%) (Auto) 0.4, Neutrophils # (Auto) 4.36, Lymphocytes # (Auto) 2.08, Monocytes # (Auto) 0.74, Eosinophils # (Auto) 0.49, Basophils # (Auto) 0.03 09/19/17 22:45 Test 09/19/17 22:45 09/19/17 22:53 09/19/17 23:55 White Blood Count 7.74 K/uL (4.8-10.8) Red Blood Count 4.08 M/uL (4.2-5.4) Hemoglobin 12.1 g/dL (12.0-16.0) Hematocrit 36.5 % (37-47) Mean Corpuscular Volume 89.5 fL (80-100) Mean Corpuscular Hemoglobin 29.7 pg (25-34) Mean Corpuscular Hemoglobin Concent 33.2 g/dl (32-36) Platelet Count 187 K/uL (130-400) Mean Platelet Volume 9.1 fL (7.4-10.4) Neutrophils (%) (Auto) 56.3 % Lymphocytes (%) (Auto) 26.9 % Monocytes (%) (Auto) 9.6 % Eosinophils (%) (Auto) 6.3 % Basophils (%) (Auto) 0.4 % Neutrophils # (Auto) 4.36 K/uL (1.4-6.5) Lymphocytes # (Auto) 2.08 K/uL (1.2-3.4) Monocytes # (Auto) 0.74 K/uL (0.11-0.59) Eosinophils # (Auto) 0.49 K/uL (0-0.5) Basophils # (Auto) 0.03 K/uL (0-0.2) RDW Standard Deviation 54.0 fL (36.4-46.3) RDW Coefficient of Variation 16.7 % (11.5-14.5) Immature Granulocyte % (Auto) 0.5 % Immature Granulocyte # (Auto) 0.04 K/uL (0.00-0.02) Anion Gap 7.0 mmol/L (3-11) Est Creatinine Clear Calc Drug Dose 71.1 ml/min Estimated GFR () 89.1 Estimated GFR (Non- 76.9 BUN/Creatinine Ratio 22.3 (10-20) Calcium Level 9.0 mg/dl (8.5-10.1) Magnesium Level 2.5 mg/dl (1.8-2.4) Total Bilirubin 0.4 mg/dl (0.2-1) Aspartate Amino Transf (AST/SGOT) 19 U/L (15-37) Alanine Aminotransferase (ALT/SGPT) 36 U/L (12-78) Alkaline Phosphatase 57 U/L (45-117) Troponin I < 0.015 ng/ml (0-0.045) C-Reactive Protein < 0.29 mg/dl (0-0.29) Pro-B-Type Natriuretic Peptide 4073 pg/ml (0-1800) Total Protein 6.4 gm/dl (6.4-8.2) Albumin 3.7 gm/dl (3.4-5.0) Globulin 2.7 gm/dl (2.5-4.0) Albumin/Globulin Ratio 1.4 (0.9-2) Chemistry Specimen Hemolysis Lyme Disease IgG Antibody NEG (NEG) Lyme Disease IgM Antibody NEG (NEG) Bedside Lactic Acid Venous 0.47 mmol/L (0.90-1.70) Prothrombin Time 12.6 SECONDS (9.0-12.0) Prothromb Time International Ratio 1.2 (0.9-1.1) Activated Partial Thromboplast Time 24.5 SECONDS (21.0-31.0) Partial Thromboplastin Ratio 0.9 Laboratory results per my review. Medications Administered Medications (Trade) Dose Ordered Sig/Amauri Route Start Time Stop Time Status Last Admin Dose Admin Acetaminophen (Tylenol Tab) 650 mg NOW STAT PO 09/20/17 00:28 09/20/17 00:29 DC 09/20/17 00:47 650 MG ECG Per My Interpretation Indication: chest pain Rate (beats per minute): 82 Rhythm: other (paced) Findings: no acute ischemic change, prolonged QT, other (prolonged QRS and QT intervals consistant with pacing. ) ED Course 8: The patient was evaluated in room B9. A complete history and physical exam was performed. 0016: I reevaluated the patient. Her pain is getting worse. She only wants Tylenol. I will call her cardiothoracic surgeon at [place]. 0028: Ordered Acetaminophen 650 mg PO 0055: I spoke to the patient's cardiothoracic surgeon at [place]. Okay with the patient going home. The patient can go to [place] for further testing on Friday or Friday. Upon reevaluation, the patient is feeling better. I discussed the findings and the treatment plan with the patient. She verbalizes agreement and understanding. She was discharged home. 0115: Ordered Tramadol HCL 1 homepack PO. Medical Decision Differential diagnosis: Etiologies such as cardiac ischemia, aortic dissection, pulmonary embolism, pneumonia, pneumothorax, musculoskeletal, infections, pericarditis, myocarditis , esophageal rupture, gastrointestinal, as well as others were entertained. Patient well-appearing here throughout, vital signs stable, labs reassuring, and CT negative. Patient aware of limitations given lack of IV contrast due to her allergy. Case discussed with covering thoracic surgeon at [facility] who was agreeable with our evaluation here. I do not feel patient requires admission or emergent transfer and the surgeon was in agreement with this plan also. States they can see her Friday morning in [place] more urgently as a precaution. I feel patient likely was slightly overdoing it at home, as well as recently stopping the steroids which may have given her additional anti-inflammatory and subsequently pain control which is now led to slightly increased inflammation. Patient's pain is reproducible on exam and only with exertion. Patient with no shortness of breath, no hemoptysis no cough , no fevers chills. Patient's incisions otherwise well-appearing and I do not suspect any additional wound infection. Patient BNP mildly elevated although family states it was elevated at [facility] as well. This was also discussed with the covering surgeon at [facility]. Patient had recently been told to stop this and was given IV fluids as she was slightly dehydrated. I discussed with her close monitoring for any weight gain or swelling as she might need to be placed back on diuretics as a precaution but at a slightly lower dose. Discussed with her that this should be discussed when she sees the surgeon in follow-up on Friday. Discussed with her symptoms to watch and return for, patient and daughter verbalized understanding were agreeable with plan. Patient requested something slightly stronger than Tylenol just in case she has trouble sleeping due to persistent pain. Patient was given home pack of Ultram. Patient has not yet driving, daughter will be driving home. Patient tolerating p.o. here, ambulate with a steady gait, and was well-appearing at time of discharge. Medication Reconcilliation Current Medication List: was personally reviewed by me Blood Pressure Screening Patient's blood pressure: Normal blood pressure Impression Primary Impression: Chest pain Additional Impression: S/P pericardial surgery Scribe Attestation The scribe's documentation has been prepared under my direction and personally reviewed by me in its entirety. I confirm that the note above accurately reflects all work, treatment, procedures, and medical decision making performed by me. Departure Information Dispostion Home / Self-Care Referrals Trang Allan D.O. (PCP) Forms HOME CARE DOCUMENTATION FORM, IMPORTANT VISIT INFORMATION, WORK / SCHOOL INSTRUCTIONS Patient Instructions My [facility] Additional Instructions Please continue your regular medications. Please do not engage in strenuous activity. Please continue to monitor for any changes at your incision or in general including worsening chest pain, trouble breathing, fevers, vomiting, leg swelling, abdominal pain or swelling. If you have these or have any other concerns, please return to the emergency room immediately. Please otherwise call and follow-up at [facility] on Friday. Problem Qualifiers Primary Impression: Chest pain Chest pain type: unspecified Qualified Codes: R07.9 - Chest pain, unspecified
[2017-09-19 23:00] LABS: BASO % 0.4 %; BASO ABS # 0.03 K/uL (0-0.2); EOS % 6.3 %; EOS ABS # 0.49 K/uL (0-0.5); HEMATOCRIT 36.5 % (37-47); HEMOGLOBIN 12.1 g/dL (12.0-16.0); IG# 0.04 K/uL (0.00-0.02); LYMPH % 26.9 %; LYMPH ABS # 2.08 K/uL (1.2-3.4); MEAN CELL VOLUME 89.5 fL (80-100); MEAN CORPUSCULAR HEMOGLOBIN 29.7 pg (25-34); MEAN CORPUSCULAR HGB CONC 33.2 g/dl (32-36); MEAN PLATELET VOLUME 9.1 fL (7.4-10.4); MONO % 9.6 %; MONO ABS # 0.74 K/uL (0.11-0.59); NEUT % 56.3 %; NEUT ABS # 4.36 K/uL (1.4-6.5); PLATELET COUNT 187 K/uL (130-400); RED CELL DISTRIBUTION WIDTH CV 16.7 % (11.5-14.5); WHITE BLOOD COUNT 7.74 K/uL (4.8-10.8)
[2017-09-19 23:29] LABS: ALBUMIN 3.7 gm/dl (3.4-5.0); ALKALINE PHOSPHATASE 57 U/L (45-117); ALT/SGPT 36 U/L (12-78); AST/SGOT 19 U/L (15-37); BLOOD UREA NITROGEN 17 mg/dl (7-18); CARBON DIOXIDE 24 mmol/L (21-32); CREATININE 0.75 mg/dl (0.60-1.20); GLUCOSE 87 mg/dl (70-99); POTASSIUM 4.3 mmol/L (3.5-5.1); SODIUM 140 mmol/L (136-145); TOTAL PROTEIN 6.4 gm/dl (6.4-8.2)
[2017-09-20 00:22] LABS: INR 1.2 (0.9-1.1); PTT PATIENT 24.5 SECONDS (21.0-31.0)
[2017-09-20] MEDS ORDERED: ACETAMINOPHEN 325 MG TAB PO STA (00:28)
[2017-09-20] MEDS ORDERED: TRAMADOL HCL 50 MG HOME PACK PO ONE (01:15)
[2017-09-20 01:38] VITALS: BP 122/69; PULSE 72; O2SAT 96
--- NOTE | 2017-09-20 07:17 | DIAGNOSTIC IMAGING REPORT ---
(CHEST) THORAX WITHOUT CT DOSE: 279.13 mGy.cm CLINICAL HISTORY: 76 years-old Female with left chest pain, recent pericardial window. Acute left-sided chest pain TECHNIQUE: Multiaxial CT images of the chest were performed without contrast. A dose lowering technique was utilized adhering to the principles of ALARA. COMPARISON: Chest radiograph 09/18/2017, chest CT 02/21/2017 FINDINGS: No dominant thyroid nodule identified. Left subclavian pacer is noted with leads overlying the right atrium and right ventricle. Moderate multichamber cardiac enlargement. No aortic aneurysm identified. Trace pericardial effusion has decreased in size from comparison study. There is stranding of the anterior inferior pericardium, adjacent epicardial fat, subxiphoid soft tissues and subcutaneous tissues of the lower superficial anterior chest compatible with recent pericardial window procedure. No drainable fluid collections identified. No pathologic adenopathy of the chest. There is no pneumothorax or pleural effusion. Mild subsegmental bibasilar atelectasis. No suspicious pulmonary nodules or masses are identified. Central airways are patent. Prior cholecystectomy. Partially imaged 2.2 cm lesion of the anterior right hepatic lobe suggests hepatic cyst. No acute abnormality of the imaged upper abdomen. Soft tissues are otherwise unremarkable. There are no suspicious lytic or blastic bony lesions. Compression deformity of the T11 vertebral body appears unchanged from comparison study 02/21/2017. IMPRESSION: 1. Decreased size of pericardial effusion with only trace pericardial fluid now present. There is stranding of the anterior inferior pericardium, adjacent epicardial fat, subxiphoid soft tissues and subcutaneous tissues of the lower superficial anterior midline chest compatible with recent pericardial window procedure. No drainable fluid collections identified. 2. Subsegmental bibasilar atelectasis. 3. No lobar airspace consolidation, adenopathy or pleural effusion. Electronically signed by: Evert Darling M.D. 09/20/2017 7:16 AM Dictated Date/Time: 09/20/2017 7:07 AM
== END 2017-09-20 01:39 | disposition home or self-care (01) ==
LOC: C.EDB 21:17
DX: R07.9 Chest pain, unspecified (principal); Z98.890 Other specified postprocedural states; K21.9 Gastro-esophageal reflux disease without esophagitis; E78.5 Hyperlipidemia, unspecified; M81.0 Age-related osteoporosis without current pathological fracture; M19.90 Unspecified osteoarthritis, unspecified site; E89.0 Postprocedural hypothyroidism; Z90.89 Acquired absence of other organs; Z95.0 Presence of cardiac pacemaker; Z98.51 Tubal ligation status; Z90.49 Acquired absence of other specified parts of digestive tract; Z79.899 Other long term (current) drug therapy

== ENCOUNTER 2017-10-30 15:41 | Emergency (ER) | payer OTHER ==
[~2017-10-30] VITALS: Ht 171.5 cm; Wt 85.5 kg
[~2017-10-30 15:41] MED LIST changes: -BIOT1TAB2 PO; -COLC0.6T54 PO; -LEVO100T7 PO; -PRD20 PO; -PROB1TAB16 PO; -RANI150T85 PO; -ROSU5TAB PO; -SERT-234 PO; -SPRIN/30 INH
[2017-10-30 15:49] VITALS: TEMP 36.7; Ht 171.5 cm; Wt 85.5 kg
[2017-10-30] MEDS ORDERED: COLC0.6T54 PO (16:02)
[2017-10-30] MEDS ORDERED: BIOT1TAB2 PO (18:08)
[2017-10-30 19:17] LABS: BASO % 0.7 %; BASO ABS # 0.04 K/uL (0-0.2); EOS % 3.2 %; EOS ABS # 0.19 K/uL (0-0.5); HEMOGLOBIN 13.7 g/dL (12.0-16.0); IG# 0.01 K/uL (0.00-0.02); LYMPH % 34.1 %; LYMPH ABS # 2.02 K/uL (1.2-3.4); MEAN CELL VOLUME 90.9 fL (80-100); MEAN CORPUSCULAR HEMOGLOBIN 29.7 pg (25-34); MEAN CORPUSCULAR HGB CONC 32.6 g/dl (32-36); MONO % 8.1 %; MONO ABS # 0.48 K/uL (0.11-0.59); NEUT % 53.7 %; NEUT ABS # 3.19 K/uL (1.4-6.5); PLATELET COUNT 154 K/uL (130-400); RED CELL DISTRIBUTION WIDTH CV 15.9 % (11.5-14.5); RED CELL DISTRIBUTION WIDTH SD 52.7 fL (36.4-46.3); WHITE BLOOD COUNT 5.93 K/uL (4.8-10.8)
[2017-10-30 19:24] LABS: INR 1.1 (0.9-1.1)
--- NOTE | 2017-10-30 19:32 | DIAGNOSTIC IMAGING REPORT ---
CHEST ONE VIEW PORTABLE CLINICAL HISTORY: 76 years-old Female presenting with CHEST PAIN. TECHNIQUE: Portable upright AP view of the chest was obtained. COMPARISON: 09/18/2017. FINDINGS: Left subclavian pacer with leads to the right atrium and right ventricular apex. Atherosclerosis of the aortic arch. Cardiac silhouette mildly enlarged, unchanged. Bandlike opacity at the right lung base unchanged. No other focal opacity. No large effusion or pneumothorax. Osseous structures normal. Upper abdomen normal. IMPRESSION: 1. Cardiomegaly. No other convincing evidence of acute cardiopulmonary disease. 2. Persistent right basilar atelectasis or scarring. Electronically signed by: Jean Rashid M.D. 10/30/2017 7:30 PM Dictated Date/Time: 10/30/2017 7:29 PM
[2017-10-30] MEDS ORDERED: ACT/35 PO (19:35)
[2017-10-30] MEDS ORDERED: ACET-1693 PO (19:35)
--- NOTE | 2017-10-30 19:35 | EMERGENCY ROOM VISIT NOTE ---
History Report prepared by Cecily: Chas Ferrer Under the Supervision of: Dr. Maximo Wilder M.D. First contact with patient: 18:30 Chief Complaint: IRREGULAR HEARTBEAT Stated Complaint: ARRHYTHMIA, NAUSEA- CARDIAC HX Nursing Triage Summary: Patient ambulatory to triage with an upright and steady gait, states "I have quite a cardiac history. I have a pacemaker. Two months ago, I had open heart surgery for a pericardial window. Two days ago, I started having arrhythmias that I could feel on the left side of my chest. Today, every time I walk, I started having these arrhythmias and shortness of breath. I am feeling it in the center of my chest and neck." Patient took 2 full strength ASA this morning. Patient admits to having left arm pain earlier this afternoon. History of Present Illness The patient is a 76 year old female who presents to the Emergency Room with complaints of Source of History: patient Onset: the past two weeks Position: other (global) Quality: other (weakness, palpitations, and nausea) Timing: worsening, other (persistent) Associated Symptoms: No fevers, No chills, No headache, No cough, No SOB, No diarrhea, No urinary symptoms Review of Systems See HPI for pertinent positives and negatives. A total of ten systems were reviewed and were otherwise negative. Past Medical & Surgical Medical Problems: (1) Bronchiectasis (2) Chest pain (3) GERD (gastroesophageal reflux disease) (4) History of pancreatitis (5) History of pericarditis (6) HLD (hyperlipidemia) (7) Hypothyroidism (8) Osteoarthritis (9) Osteoporosis (10) Paroxysmal atrial fibrillation (11) Pericardial effusion Surgical Problems: (1) H/O arthroscopic knee surgery (2) H/O partial thyroidectomy (3) History of appendectomy (4) History of sinus surgery (5) History of tonsillectomy (6) History of tubal ligation (7) Hx of cholecystectomy (8) Status post atrioventricular brayan ablation (9) Status post cardiac pacemaker procedure Family History Patient reports no known family medical history. Social History Smoking Status: Never Smoker Alcohol Use: occasionally Drug Use: none Housing Status: lives with family Occupation Status: retired Current/Historical Medications Scheduled Biotin (Biotin), 5 MG PO 3XWK Calcium Citrate-Vitamin D (Calcium Citrate + D), 1 TAB PO BID Colchicine (Colchicine), 0.6 MG PO BID Flaxseed (Linseed) (Flax Seed Oil), 1,000 MG PO 3XWK Levothyroxine Sodium (Levothyroxine Sodium), 100 MCG PO QAM Metoprolol Tartrate (Lopressor) (Lopressor), 25 MG PO BID Ranitidine (Zantac), 150 MG PO BID Risedronate Sod (Actonel), 1 TAB PO WK Rosuvastatin Calcium (Crestor), 5 MG PO 3XWK Sertraline (Zoloft), 100 MG PO HS Tiotropium [place] (Spiriva Handihaler), 1 CAP INH DAILY Scheduled PRN Acetaminophen Tab (Tylenol), 1-2 MG PO Q6 PRN for Headache or Pain Allergies Coded Allergies: Iodinated Diagnostic Agents (Verified Allergy, Severe, ANAPHYLAXIS, ) Shellfish (Verified Allergy, Severe, "Seafood" -- ANAPHYLAXIS, 10/30/17) Erythromycin (Verified Allergy, Intermediate, RASH, 10/30/17) Simvastatin (Verified Allergy, Intermediate, RASH, 10/30/17) Celecoxib (Verified Allergy, Mild, RASH, 10/30/17) Nystatin (Verified Allergy, Mild, RASH, 10/30/17) Rivaroxaban (Verified Adverse Reaction, Severe, 0, 10/30/17) possivble hemorrhagic pericardial effusion Moxifloxacin (Verified Adverse Reaction, Intermediate, HALUCINATIONS, 10/30) Physical Exam Vital Signs Date Time Temp Pulse Resp B/P (MAP) Pulse Ox O2 Delivery O2 Flow Rate FiO2 10/30/17 20:24 84 18 159/91 97 Room Air 10/30/17 19:07 70 10/30/17 19:00 Room Air 10/30/17 18:41 68 20 189/124 97 Room Air 10/30/17 18:28 77 18 140/87 98 Room Air 10/30/17 15:49 36.7 75 20 148/87 97 Room Air Physical Exam GENERAL: Awake, alert, fatigued-appearing, in no distress HENT: Normocephalic, atraumatic. Oropharynx unremarkable. Dry mucous membranes. EYES: Normal conjunctiva. Sclera non-icteric. NECK: Supple. No nuchal rigidity. FROM. No JVD. RESPIRATORY: Clear to auscultation. CARDIAC: Regular rate, normal rhythm. Extremities warm and well perfused. Pulses equal. ABDOMEN: Soft, non-distended. No tenderness to palpation. No rebound or guarding. No masses. RECTAL: Deferred. MUSCULOSKELETAL: Chest examination reveals no tenderness. The back is symmetrical on inspection without obvious abnormality. There is no CVA tenderness to palpation. No joint edema. LOWER EXTREMITIES: Calves are equal size bilaterally and non-tender. No edema. No discoloration. NEURO: Normal sensorium. No sensory or motor deficits noted. SKIN: No rash or jaundice noted. Medical Decision & Procedures Laboratory Results 10/30/17 18:56 Red Blood Count 4.62, Mean Corpuscular Volume 90.9, Mean Corpuscular Hemoglobin 29.7, Mean Corpuscular Hemoglobin Concent 32.6, Mean Platelet Volume 10.0, Neutrophils (%) (Auto) 53.7, Lymphocytes (%) (Auto) 34.1, Monocytes (%) (Auto) 8.1, Eosinophils (%) (Auto) 3.2, Basophils (%) (Auto) 0.7, Neutrophils # (Auto) 3.19, Lymphocytes # (Auto) 2.02, Monocytes # (Auto) 0.48, Eosinophils # (Auto) 0.19, Basophils # (Auto) 0.04 10/30/17 18:56 Test 10/30/17 18:56 White Blood Count 5.93 K/uL (4.8-10.8) Red Blood Count 4.62 M/uL (4.2-5.4) Hemoglobin 13.7 g/dL (12.0-16.0) Hematocrit 42.0 % (37-47) Mean Corpuscular Volume 90.9 fL (80-100) Mean Corpuscular Hemoglobin 29.7 pg (25-34) Mean Corpuscular Hemoglobin Concent 32.6 g/dl (32-36) Platelet Count 154 K/uL (130-400) Mean Platelet Volume 10.0 fL (7.4-10.4) Neutrophils (%) (Auto) 53.7 % Lymphocytes (%) (Auto) 34.1 % Monocytes (%) (Auto) 8.1 % Eosinophils (%) (Auto) 3.2 % Basophils (%) (Auto) 0.7 % Neutrophils # (Auto) 3.19 K/uL (1.4-6.5) Lymphocytes # (Auto) 2.02 K/uL (1.2-3.4) Monocytes # (Auto) 0.48 K/uL (0.11-0.59) Eosinophils # (Auto) 0.19 K/uL (0-0.5) Basophils # (Auto) 0.04 K/uL (0-0.2) RDW Standard Deviation 52.7 fL (36.4-46.3) RDW Coefficient of Variation 15.9 % (11.5-14.5) Immature Granulocyte % (Auto) 0.2 % Immature Granulocyte # (Auto) 0.01 K/uL (0.00-0.02) Prothrombin Time 11.8 SECONDS (9.0-12.0) Prothromb Time International Ratio 1.1 (0.9-1.1) Anion Gap 3.0 mmol/L (3-11) Est Creatinine Clear Calc Drug Dose 65.2 ml/min Estimated GFR () 80.0 Estimated GFR (Non- 69.0 BUN/Creatinine Ratio 21.4 (10-20) Calcium Level 9.6 mg/dl (8.5-10.1) Total Bilirubin 0.4 mg/dl (0.2-1) Direct Bilirubin 0.1 mg/dl (0-0.2) Aspartate Amino Transf (AST/SGOT) 35 U/L (15-37) Alanine Aminotransferase (ALT/SGPT) 42 U/L (12-78) Alkaline Phosphatase 67 U/L (45-117) Troponin I < 0.015 ng/ml (0-0.045) Pro-B-Type Natriuretic Peptide 2502 pg/ml (0-1800) Total Protein 7.3 gm/dl (6.4-8.2) Albumin 3.9 gm/dl (3.4-5.0) Lipase 151 U/L (73-393) Influenza Type A (RT-PCR) Neg for Influ A (NEG) Influenza Type B (RT-PCR) Neg for Influ B (NEG) Laboratory results reviewed by me ECG Per My Interpretation Indication: palpitations Rate (beats per minute): 81 Rhythm: other (ventricular paced) Findings: no acute ischemic change, no ectopy ED Course 1830: The patient was evaluated in room C2. A complete history and physical exam was performed. Medical Decision I reviewed the patient's past medical history, medications, and the nursing notes as described above. Differential diagnosis: Etiologies such as premature contractions, electrolyte abnormality, cardiac dysrhythmia, thyroid dysfunction, pulmonary embolism, infection, gastrointestinal, as well as others were entertained. The patient is a 76 y/o woman with a pmhx of afib s/p PPM complicated by pericardial effusion s/p pericardial window 2 months ago presents to the emergency department with worsening generalized weakness and palpitations over the past 2 days in the setting of ongoing sx for several weeks per HPI. On arrival, the patient is fatigued appearing in NAD, AFVSS. EKG is V-paced. Trop negative in the setting of greater than 6 hours of sx. BNP 2K however CXR clear. PPM interrogation demonstrates underlying Afib but otherwise no arrhythmias. Patient reassess and feeling improved. Unclear etiology to patient sx at this time. However, given reassuring w/u, outpatient f/u appropriate. Findings and plan for follow-up reviewed with patient. Patient agreeable and d/c 'd per discharge instructions. Impression Primary Impression: Palpitations Scribe Attestation The scribe's documentation has been prepared under my direction and personally reviewed by me in its entirety. I confirm that the note above accurately reflects all work, treatment, procedures, and medical decision making performed by me. Departure Information Dispostion Home / Self-Care Referrals Trang Allan D.O. 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 Gonzalez, in the next week for re- evaluation. The cause of your symptoms is unclear at this time. Otherwise, your exam, EKG, chest xray, lab results and interrogation of your pacemaker did not show signs of an emergent condition at this time. Continue your current medications as prescribed. Return to the emergency department for worsening symptoms as described in the accompanying instructions.
[2017-10-30 19:51] LABS: ALBUMIN 3.9 gm/dl (3.4-5.0); ALT/SGPT 42 U/L (12-78); AST/SGOT 35 U/L (15-37); BLOOD UREA NITROGEN 18 mg/dl (7-18); CALCIUM 9.6 mg/dl (8.5-10.1); CARBON DIOXIDE 25 mmol/L (21-32); CREATININE 0.82 mg/dl (0.60-1.20); GLUCOSE 87 mg/dl (70-99); LIPASE 151 U/L (73-393); POTASSIUM 4.2 mmol/L (3.5-5.1); SODIUM 138 mmol/L (136-145)
[2017-10-30 19:54] LABS: INFLUENZA A PCR Neg for Influ A (NEG); INFLUENZA B PCR Neg for Influ B (NEG)
[2017-10-30 19:56] LABS: ALKALINE PHOSPHATASE 67 U/L (45-117); TOTAL PROTEIN 7.3 gm/dl (6.4-8.2)
[2017-10-30 20:24] VITALS: BP 159/91; PULSE 84; O2SAT 97
[2017-10-30] MEDS ORDERED: SPRIN/30 INH (20:41)
[2017-10-30] MEDS ORDERED: SERT-234 PO (20:45)
[2017-10-30] MEDS ORDERED: LEVO100T7 PO (20:45)
[2017-10-30] MEDS ORDERED: RANI150T85 PO (20:45)
[2017-10-30] MEDS ORDERED: ROSU5TAB PO (20:45)
== END 2017-10-30 20:56 | disposition home or self-care (01) ==
LOC: C.EDB 15:43 → C.EDC 20:56
DX: R00.2 Palpitations (principal); K21.9 Gastro-esophageal reflux disease without esophagitis; E78.5 Hyperlipidemia, unspecified; E03.9 Hypothyroidism, unspecified; M81.0 Age-related osteoporosis without current pathological fracture; M19.90 Unspecified osteoarthritis, unspecified site; Z90.89 Acquired absence of other organs; Z98.51 Tubal ligation status; Z95.0 Presence of cardiac pacemaker; Z90.49 Acquired absence of other specified parts of digestive tract; Z98.890 Other specified postprocedural states; Z91.041 Radiographic dye allergy status; Z88.1 Allergy status to other antibiotic agents; Z91.013 Allergy to seafood; Z88.8 Allergy status to other drugs, medicaments and biological substances; Z79.899 Other long term (current) drug therapy

== ENCOUNTER 2022-10-18 06:10 | Observation (INO) ==
--- NOTE | 2022-09-19 09:35 | PAT Medication Instructions ---
Medication Instructions Date of Service September 19, 2022 Home Medications Medication Instructions Recorded nebulizer accessories #1 ea 06/06/20 Flutter Valve #1 ea 08/09/21 Wheeled Walker #1 ea 12/19/21 Incentive Spirometer #1 ea 02/21/22 albuterol sulfate 2.5 mg/3 mL 2.5 mg (3 mL) inhalation Q4H PRN 08/16/22 (0.083 %) solution for nebulization shortness of breath or wheezing #180 mL albuterol sulfate 90 mcg/actuation 2 puff inhalation Q6H PRN 08/16/22 aerosol inhaler shortness of breath or wheezing #1 inhaler sodium chloride 7 % for 4 ml inhalation BID #480 mL 08/16/22 nebulization amoxicillin 500 mg tablet 2,000 mg PO ONCE PRN prophylaxis 08/20/22 #4 tabs acetaminophen 325 mg tablet (Tylenol) 325 mg PO Q6H PRN Pain apixaban 5 mg tablet (Eliquis) 5 mg PO BID levothyroxine 100 mcg tablet 100 mcg PO DAILYBB metoprolol tartrate 50 mg tablet See Rx Instructions sertraline 25 mg tablet 25 mg PO QAM rosuvastatin 5 mg tablet 5 mg PO 3XWK famotidine 20 mg tablet 20 mg PO BID cholecalciferol (vitamin D3) 25 mcg (1,000 unit) capsule (Vitamin D3) 2,000 unit PO BID biotin 1 mg tablet 1 mg PO Q OTHER DAY cyclosporine 0.05 % eye drops (Restasis MultiDose) 1 drp ophthalmic (eye) Q12H losartan 25 mg tablet 25 mg PO HS denosumab 60 mg/mL subcutaneous syringe (Prolia) 0 mg subcut .Q6MO multivit with [id number]-lutein 8 mg iron-400 mcg-300 mcg tablet (Centrum Silver Women) 1 tab PO Q2D torsemide 5 mg tablet 5 mg PO .COMPLEX Edema albuterol sulfate 2.5 mg/3 mL (0.083 %) solution for nebulization 2.5 mg (3 mL) inhalation Q4H PRN shortness of breath or wheezing albuterol sulfate 90 mcg/actuation aerosol inhaler 2 puff inhalation Q6H PRN shortness of breath or wheezing sodium chloride 7 % for nebulization 4 ml inhalation BID amoxicillin 500 mg tablet 2,000 mg PO ONCE PRN prophylaxis docusate sodium 100 mg tablet 200 mg PO DAILY food supplemt, lactose-reduced (Ensure oral liquid) 1 ea PO TID peg 400-propylene glycol (PF) 0.4 %-0.3 % eye drops in a dropperette (Systane (PF)) 1 drp ophthalmic (eye) BID PRN Dry Eyes umeclidinium 62.5 mcg-vilanterol 25 mcg/actuation powdr for inhalation (Anoro Ellipta) 1 inh inhalation HS Continue as directed rosuvastatin 5 mg tablet 5 mg PO 3XWK denosumab 60 mg/mL subcutaneous syringe (Prolia) 0 mg subcut .Q6MO amoxicillin 500 mg tablet 2,000 mg PO ONCE PRN prophylaxis (if needed) ASK your prescriber and surgeon apixaban 5 mg tablet (Eliquis) 5 mg PO BID (in order to get spinal anesthesia- will need to hold Eliquis/apixaban at least 72 hours prior to surgery) STOP taking 2 weeks before surgery biotin 1 mg tablet 1 mg PO Q OTHER DAY DO NOT take the morning of surgery cholecalciferol (vitamin D3) 25 mcg (1,000 unit) capsule (Vitamin D3) 2,000 unit PO BID multivit with [id number]-[id number]-GT-lutein 8 mg iron-400 mcg-300 mcg tablet (Centrum Silver Women) 1 tab PO Q2D torsemide 5 mg tablet 5 mg PO .COMPLEX Edema docusate sodium 100 mg tablet 200 mg PO DAILY food supplemt, lactose-reduced (Ensure oral liquid) 1 ea PO TID Take morning of surgery With a small sip of water, OTHERWISE NOTHING TO EAT OR DRINK AFTER MIDNIGHT: acetaminophen 325 mg tablet (Tylenol) 325 mg PO Q6H PRN Pain (if needed) levothyroxine 100 mcg tablet 100 mcg PO DAILYBB (take without food on day of surgery) metoprolol tartrate 50 mg tablet See Rx Instructions sertraline 25 mg tablet 25 mg PO QAM famotidine 20 mg tablet 20 mg PO BID cyclosporine 0.05 % eye drops (Restasis MultiDose) 1 drp ophthalmic (eye) Q12H albuterol sulfate 2.5 mg/3 mL (0.083 %) solution for nebulization 2.5 mg (3 mL) inhalation Q4H PRN shortness of breath or wheezing (if needed) albuterol sulfate 90 mcg/actuation aerosol inhaler 2 puff inhalation Q6H PRN shortness of breath or wheezing (use if needed; please bring with you to hospital day of surgery if possible) sodium chloride 7 % for nebulization 4 ml inhalation BID peg 400-propylene glycol (PF) 0.4 %-0.3 % eye drops in a dropperette (Systane (PF)) 1 drp ophthalmic (eye) BID PRN Dry Eyes (if needed) Take evening before surgery acetaminophen 325 mg tablet (Tylenol) 325 mg PO Q6H PRN Pain (if needed) metoprolol tartrate 50 mg tablet See Rx Instructions famotidine 20 mg tablet 20 mg PO BID cholecalciferol (vitamin D3) 25 mcg (1,000 unit) capsule (Vitamin D3) 2,000 unit PO BID cyclosporine 0.05 % eye drops (Restasis MultiDose) 1 drp ophthalmic (eye) Q12H losartan 25 mg tablet 25 mg PO HS albuterol sulfate 2.5 mg/3 mL (0.083 %) solution for nebulization 2.5 mg (3 mL) inhalation Q4H PRN shortness of breath or wheezing (if needed) albuterol sulfate 90 mcg/actuation aerosol inhaler 2 puff inhalation Q6H PRN shortness of breath or wheezing (if needed) sodium chloride 7 % for nebulization 4 ml inhalation BID docusate sodium 100 mg tablet 200 mg PO DAILY food supplemt, lactose-reduced (Ensure oral liquid) 1 ea PO TID peg 400-propylene glycol (PF) 0.4 %-0.3 % eye drops in a dropperette (Systane (PF)) 1 drp ophthalmic (eye) BID PRN Dry Eyes (if needed) umeclidinium 62.5 mcg-vilanterol 25 mcg/actuation powdr for inhalation (Anoro Ellipta) 1 inh inhalation HS Other Notes If you have any questions please call us at [phone] or [phone] or [phone] or [phone]
--- NOTE | 2022-09-24 11:25 | Anesthesiology Consultation ---
Date of Service September 24, 2022 Assessment & Plan (1) Encounter for pre-operative examination: - awaiting [facility] cardiology ordered stress test 10/08/22 and clearance. - upcoming S PCP pre-op evaluation 10/10/22. Recommend 6-8 mL/kg of tidal volume. Consideration for CPAP/BiPAP post extubation if need be - Medtronic pacemaker. - pulmonology 08/16/22 [place]: "...Shortness of breath with mild restrictive lung disease. Multifactorial. Underlying A. fib with pulmonary hypertension playing its part. Patient also has restrictive component, BMI is only 29, underlying lower lobe scarring might be playing a role. Patient does have significant secondhand smoke exposure and has benefitted from Anoro. Continue with incentive spirometry for restrictive lung disease. Continue with Anoro inhaler on a daily basis along with as needed albuterol. PFT 12/17/2021 personally reviewed: Mild to moderate restrictive lung disease with severe decrease in ERV, no obstructive lung dysfunction, mild decrease in DLCO. (Decrease in FEV1 by 130 mL, decrease in TLC 87--> 77% compared to 12/2020). FVC 2.39 L 71%, FEV1 1.70 L 67%, FEV1/FVC 71%, RV 85%, TLC 77%, RV/TLC 104%, DLCO 65%, DLCO/VA 94%--Bronchiectasis with bilateral lower lobe scarring Has been there for a long time. Continue with hypertonic saline nebulized along with flutter valve at least once a day and increase it to twice a day when she has congestion. CT chest 01/29/22 personally reviewed: Minimal bronchiectasis with scarring in the right lower lobe. Pleural-based nodularity in the left lower lobe more likely scarring, right lower lobe linear scarring. Right middle lobe 8 mm pulmonary nodule with minimal cystic bronchiectatic changes (7 mm 2018). No significant mediastinal lymphadenopathy--Pulmonary nodule. Right middle lobe 8 mm, no significant change in size since 2018. In a patient who is a lifetime non-smoker. No further follow-up on the nodule needed--Pulmonary hypertension. Mild with PASP 36 mmHg. Likely type II for possible combination of type III. Management as per cardiology. 2D echo 05/02/2020: EF 55%, mild concentric LVH, normal right ventricle systolic function, severely enlarged left and right atrium. Severe TR, PASP 36 mmHg...planned to have left hip replacement in October. There is no absolute contraindication from pulmonary perspective for patient to have surgery. Recommend 6-8 mL/kg of tidal volume. Consideration for CPAP/BiPAP post extubation if need be..." - cardiology 08/02/22 [facility]: "...preoperative assessment, chronic dyspnea on exertion...describes a relatively stable degree of exertional shortness of breath. She notes occasional leg edema and abdominal bloating that for the most part has been controlled with taking her torsemide every other day, and she takes an extra pill on her off days...describing relatively stable cardiac signs and symptoms. Her volume status has been stable...per her most recent echocardiogram in the fall, her tricuspid 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 is likely progress to being severe. Ongoing medical management for this has been recommended...Recommend that she undergoes a Lexiscan nuclear stress test for further risk stratification prior to consideration of orthopedic surgery..." Chart Review Chart Review: Pending: Refer to Additional Notes / Consult section and Patient seen in Pre Admission Testing Teaching & Discussion Pre-Anesthesia Teaching/Discussion Notes: Instructed NPO after midnight before surgery, except medications with 15 cc of water. Medication instructions provided according to the PAT guidelines. History Surgery Operation Date: 10/18/22 10:35 Proposed Procedures p Left Anterior Total Hip Arthroplasty - Mayur Claudio, Height/Weight Height: 5 ft 7.5 in Weight: 89.7 kg Allergies Allergy/AdvReac Type Severity Reaction Status Date / Time acetylcysteine Allergy Severe caused Verified 09/18/22 08:26 chest tightness, PVB and AFib Iodinated Contrast Media Allergy Severe ANAPHYLAXIS Verified 09/18/22 08:26 rivaroxaban Allergy Severe PERICARDIAL Verified 09/18/22 08:26 EFFUSION shellfish derived Allergy Severe "Seafood" Verified 09/18/22 08:26 -- ANAPHYLAXIS warfarin Allergy Severe "NUMBERS Verified 09/18/22 08:26 WENT TO HIGH" cayenne Allergy Intermediate hives Verified 09/25/22 09:39 erythromycin base Allergy Intermediate RASH Verified 09/18/22 08:26 simvastatin Allergy Intermediate RASH Verified 09/18/22 08:26 Ouhiqab-GHT-RyO Reductase Allergy Intermediate Rash Verified 09/18/22 08:26 Inhibitor [Qddyuqw-Owg-Paz Reductase Inhibitor] capsaicin Allergy Mild hives Verified 09/25/22 09:41 celecoxib Allergy Mild RASH Verified 09/18/22 08:26 nystatin Allergy Mild RASH Verified 09/18/22 08:26 azithromycin Allergy Unknown CAN'T Verified 09/18/22 08:26 REMEMBER alendronate sodium Allergy GI upset Verified 09/25/22 09:39 lumiracoxib Allergy diarrhea Verified 09/25/22 09:41 Sulfa (Sulfonamide Allergy nausea, Verified 09/25/22 09:41 Antibiotics) vomiting lansoprazole [From Prevacid] AdvReac Intermediate FELT Verified 09/18/22 08:26 BLOATED AFTER TAKING black walnut Allergy Intermediate rash Uncoded 09/25/22 09:39 omeprazole Allergy Unknown Uncoded 09/25/22 09:41 moxifloxacin AdvReac Severe hallucinati Uncoded 09/25/22 09:39 ons Medications Home Medications Medication Instructions Recorded Confirmed Last Taken acetaminophen 325 mg tablet 325 mg PO Q6H PRN Pain 08/28/18 09/18/22 09/29/18 20:00 (Tylenol) apixaban 5 mg tablet (Eliquis) 5 mg PO BID 08/28/18 09/18/22 01/28/22 08:30 levothyroxine 100 mcg tablet 100 mcg PO DAILYBB 08/28/18 09/18/22 09/14/20 metoprolol tartrate 50 mg tablet See Rx Instructions .Route .COMPLEX 08/28/18 09/18/22 09/13/20 sertraline 25 mg tablet 25 mg PO QAM 08/28/18 09/18/22 09/13/20 rosuvastatin 5 mg tablet 5 mg PO 3XWK 09/30/18 09/18/22 09/13/20 nebulizer accessories #1 ea 06/06/20 08/08/22 Unknown famotidine 20 mg tablet 20 mg PO BID 08/03/20 09/18/22 09/13/20 cholecalciferol (vitamin D3) 25 2,000 unit PO BID 09/14/20 09/18/22 09/13/20 mcg (1,000 unit) capsule (Vitamin D3) biotin 1 mg tablet 1 mg PO Q OTHER DAY 12/14/20 09/18/22 Unknown cyclosporine 0.05 % eye drops 1 drp ophthalmic (eye) Q12H 12/14/20 09/18/22 Unknown (Restasis MultiDose) Flutter Valve #1 ea 08/09/21 08/08/22 Unknown losartan 25 mg tablet 25 mg PO HS 08/09/21 09/18/22 Unknown Wheeled Walker #1 ea 12/19/21 08/08/22 Unknown denosumab 60 mg/mL subcutaneous 0 mg subcut .Q6MO 01/29/22 09/18/22 Unknown syringe (Prolia) multivit with 1 tab PO Q2D 02/14/22 09/18/22 Unknown jaxissde-jdhc-ZI-lutein 8 mg iron-400 mcg-300 mcg tablet (Centrum Silver Women) Incentive Spirometer #1 ea 02/21/22 08/08/22 Unknown torsemide 5 mg tablet 5 mg PO .COMPLEX Edema 08/08/22 09/18/22 Unknown albuterol sulfate 2.5 mg/3 mL 2.5 mg (3 mL) inhalation Q4H PRN 08/16/22 09/18/22 Unknown (0.083 %) solution for nebulization shortness of breath or wheezing #180 mL albuterol sulfate 90 mcg/actuation 2 puff inhalation Q6H PRN 08/16/22 09/18/22 Unknown aerosol inhaler shortness of breath or wheezing #1 inhaler sodium chloride 7 % for 4 ml inhalation BID #480 mL 08/16/22 09/18/22 Unknown nebulization amoxicillin 500 mg tablet 2,000 mg PO ONCE PRN prophylaxis 08/20/22 09/18/22 Unknown #4 tabs docusate sodium 100 mg tablet 200 mg PO DAILY 09/18/22 09/18/22 Unknown food supplemt, lactose-reduced 1 ea PO TID 09/18/22 09/18/22 Unknown (Ensure oral liquid) peg 400-propylene glycol (PF) 0.4 1 drp ophthalmic (eye) BID PRN Dry 09/18/22 09/18/22 Unknown %-0.3 % eye drops in a dropperette Eyes (Systane (PF)) umeclidinium 62.5 mcg-vilanterol 1 inh inhalation HS 09/18/22 09/18/22 Unknown 25 mcg/actuation powdr for inhalation (Anoro Ellipta) fluticasone propionate 50 intranasal 09/24/22 Unknown mcg/actuation nasal spray,suspension guaifenesin 50 mg/5 mL oral liquid 200 mg PO Q4H 09/24/22 09/24/22 Unknown Additional Notes: Pt states was advised to not take guaifenesin day of surgery, can continue flonase nasal spray as usual. This was also written on provided medication instructions. Patient and her daughter verbalized full understanding and agreement, denied questions, concerns or additional medications. Past Medical History Medical History (Updated 09/25/22 @ 10:18 by Chula Kapoor PA-C) Atrial fibrillation Dx many years ago, s/p multiple cardioversions, s/p dual chamber PPM 2017 w ith AV junction ablation Blood clot in eye [address] Clark Chronic diastolic (congestive) heart failure EF 55-60% CKD (chronic kidney disease) stage 3, GFR 30-59 ml/min GERD (gastroesophageal reflux disease) controlled, stable per pt with head elevation when sleeping Hiatal hernia History of depression History of ovarian cyst Hyperlipidemia Hypertension controlled, stable per pt Hypothyroidism Osteopenia Pacemaker Dual chamber, Medtronic, implanted [address] Chau Pericardial effusion with cardiac tamponade 2018 > pericardial window ([facility]) Primary hyperparathyroidism Pulmonary hypertension Mild with PASP 36 mmHg. Likely type II for possible combination of type III per pulm, follows with [facility] cardio Pulmonary scarring Schatzki's ring Tricuspid valve 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 Severe TR per 03/28/22 echo Patient denies h/o seizures, heart attack, DM, or blood transfusions. Exercise / Class Metabolic Activity III < 4 Walking/Shop/Light housework (SOB with usual activities ongoing x yrs, worsening with reduced physical activity due to hip; denies chest discomfort) Past Family History Family History Father Heart disease from scarlet fever Mother Dementia Heart disease Brother Heart disease from rheumatic fever Sister Hypothyroidism Other No family history of adverse response to anesthesia Past Surgical History Surgical History H/O hand surgery LEFT THUMB JOINT REPLACEMENT H/O partial thyroidectomy 1975 follicular adenoma of left lobe H/O toe surgery BILATERAL INGROWN TOENAILS REMOVED SURGICALLY History of anesthesia reaction "SLOW TO WAKE" History of appendectomy History of atrioventricular brayan ablation 2017 History of bilateral tubal ligation History of breast biopsy BENIGN > SEVERAL BIOPSIES History of cardiac cath 1986 ([facility]), FOR ABNORMAL STRESS TEST > NO STENTS/ANGIOPLASTY History of cardioversion MULTIPLE History of cataract surgery R/L History of cholecystectomy History of colonoscopy History of cystoscopy History of esophagogastroduodenoscopy (EGD) History of sinus surgery History of tonsillectomy History of tooth extraction History of total knee replacement LEFT S/P pericardial window creation 08/2017 - [facility] S/P transesophageal echocardiogram ([facility]) Past Anesthesia History No Family Hx of Anesthesia Complications and Other (quick to be put under and slow to wake; denies re-intubation) History of PONV History of PONV (denies needing scop patch) and Hx of Motion Sickness Social History Smoking Status: Never smoker Do You Dip or Chew Tobacco: No Hx Alcohol Use: Yes Alcohol type: wine alcohol intake frequency: holidays/special occasions only substance use type: does not use Review of Systems Patient denies chest pain, snoring, witnessed apneas, fever, chills, or palpitations. Physical Exam Vital Signs Vitals BP 140/86 P 91 TEMP 98.3 SP02 97% on RA RESP 18 Physical Full cervical extension range of motion without pain TMD 3.5 finger breadths Mallampati Score 3, small oral opening Dentition: multiple caps/crowns and upper left side permanent bridge, denies chipped or loose teeth or implants Lungs: normal respiratory effort. Clear throughout to auscultation, no adventitious breath sounds Cardiac: regular rate and rhythm, no murmurs noted Carotid arteries: negative bruit bilat Lab Results Anesthesia Preop Results Results Anesthesia Widget: WBC 6.24 K/ul (4.8-10.8) 09/24/22 Hgb 13.7 g/dl (12.0-16.0) 09/24/22 Hct 40.8 % (37.0-47.0) 09/24/22 Plt 165 K/uL (130-400) 09/24/22 Na 139 mmol/L (136-145) 09/24/22 K 4.2 mmol/L (3.5-5.1) 09/24/22 Cl 106 mmol/L (98-107) 09/24/22 CO2 28 mmol/L (21-32) 09/24/22 BUN 18 mg/dl (6-23) 09/24/22 Creat 0.77 mg/dl (0.6-1.2) 09/24/22 Glucose Level 89 mg/dl (70-99(Fasting)) 09/24/22 PT 12.8 Seconds (9.0-12.0) H 09/24/22 PTT 29.1 Seconds (21.0-31.0) 09/24/22 INR 1.2 (0.9-1.1) H 09/24/22 Blood Type O Positive 09/24/22 Antibody Screen NEGATIVE 09/24/22 Testing Electrocardiogram Date: 08/02/22 Ventricular-paced rhythm Echocardiogram Date: 03/28/22 EF 55-60% No regional wall motion abnormalities Mild cLVH Mild mitral 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 Severe tricuspid 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 Severe biatrial enlargement Other Testing US head and neck 09/17/22 0.9 x 0.6 x 0.8 cm TI-RADS 3 right thyroid nodule versus parathyroid adenoma. Consider sestamibi scan. Alternatively, FNA could be attempted. CT abdomen pelvis 09/12/22 1. Stable cyst in right lobe of the liver 2. Pancreas grossly unremarkable. No previous abdomen pelvis CTs are available for comparison. Appearance pancreas is grossly stable compared to previous chest CT. 3. No active intra-abdominal disease identified. Pacemaker report 07/22/22 Medtronic No alerts/advisories Mode: VVIR Normal dual (programmed single) chamber pacemaker function. Stable pacing and sensing thresholds Chest CT 01/29/22 1. There is scarring at both lung bases, unchanged. 2. Interval development of mild right basilar atelectasis. 3. There is otherwise no acute chest disease on these noncontrast images. COVID-19 Risk Screen Screening Information COVID-19 Screen Date: 09/24/22 Exposure 21 Days Family/Household +COVID Last 21 Days: No Exposure 10 Days Any COVID Exposure Last 10 Days: No Symptoms Last 10 Days Experienced COVID Sx Last 10 Days: No + COVID 0-90 Days COVID + in Last 0-90 Days: No
--- NOTE | 2022-10-17 13:28 | History & Physical Report ---
Date of Service October 17, 2022 Assessment & Plan (1) Osteoarthritis of left hip: We will proceed with a left anterior total of arthroplasty. Postoperatively she will be started on Eliquis for DVT prophylaxis. She will be kept overnight in the hospital for postoperative medical management. She plans to go to [facility] rehab upon discharge. History of Present Illness Chief Complaint: Osteoarthritis of left hip. Primary Care Provider: Nahid Rodgers MD Catracho is a pleasant 81-year-old female who has been dealing withchronic worsening left hip and groin pain. X-rays have shown advanced osteoarthritis of her left hip. She has failed years of conservative treatment including the anti-inflammatories, physical therapy, intraarticular hip injections, and activity modification. She is ambulating with a cane. After failing conservative treatment, she has elected to proceed with a left anterior total of arthroplasty. Allergies Allergy/AdvReac Type Severity Reaction Status Date / Time acetylcysteine Allergy Severe caused Verified 09/18/22 08:26 chest tightness, PVB and AFib Iodinated Contrast Media Allergy Severe ANAPHYLAXIS Verified 09/18/22 08:26 rivaroxaban Allergy Severe PERICARDIAL Verified 09/18/22 08:26 EFFUSION shellfish derived Allergy Severe "Seafood" Verified 09/18/22 08:26 -- ANAPHYLAXIS warfarin Allergy Severe "NUMBERS Verified 09/18/22 08:26 WENT TO HIGH" cayenne Allergy Intermediate hives Verified 09/25/22 09:39 erythromycin base Allergy Intermediate RASH Verified 09/18/22 08:26 simvastatin Allergy Intermediate RASH Verified 09/18/22 08:26 Szezsvx-PKE-RwG Reductase Allergy Intermediate Rash Verified 09/18/22 08:26 Inhibitor [Mojkbxv-Ogz-Ums Reductase Inhibitor] capsaicin Allergy Mild hives Verified 09/25/22 09:41 celecoxib Allergy Mild RASH Verified 09/18/22 08:26 nystatin Allergy Mild RASH Verified 09/18/22 08:26 azithromycin Allergy Unknown CAN'T Verified 09/18/22 08:26 REMEMBER alendronate sodium Allergy GI upset Verified 09/25/22 09:39 lumiracoxib Allergy diarrhea Verified 09/25/22 09:41 Sulfa (Sulfonamide Allergy nausea, Verified 09/25/22 09:41 Antibiotics) vomiting lansoprazole [From Prevacid] AdvReac Intermediate FELT Verified 09/18/22 08:26 BLOATED AFTER TAKING black walnut Allergy Intermediate rash Uncoded 03/15/23 09:39 omeprazole Allergy Unknown Uncoded 09/25/22 09:41 moxifloxacin AdvReac Severe hallucinati Uncoded 09/25/22 09:39 ons Home Medications Medication Instructions Recorded Confirmed Type acetaminophen 325 mg tablet 325 mg PO Q6H PRN Pain 08/28/18 09/18/22 History (Tylenol) apixaban 5 mg tablet (Eliquis) 5 mg PO BID 08/28/18 09/18/22 History levothyroxine 100 mcg tablet 100 mcg PO DAILYBB 08/28/18 09/18/22 History metoprolol tartrate 50 mg tablet See Rx Instructions .Route .COMPLEX 08/28/18 09/18/22 History sertraline 25 mg tablet 25 mg PO QAM 08/28/18 09/18/22 History rosuvastatin 5 mg tablet 5 mg PO 3XWK 09/30/18 09/18/22 History nebulizer accessories #1 ea 06/06/20 08/08/22 Rx famotidine 20 mg tablet 20 mg PO BID 08/03/20 09/18/22 History cholecalciferol (vitamin D3) 25 2,000 unit PO BID 09/14/20 09/18/22 History mcg (1,000 unit) capsule (Vitamin D3) biotin 1 mg tablet 1 mg PO Q OTHER DAY 12/14/20 09/18/22 History cyclosporine 0.05 % eye drops 1 drp ophthalmic (eye) Q12H 12/14/20 09/18/22 History (Restasis MultiDose) Flutter Valve #1 ea 08/09/21 08/08/22 Rx losartan 25 mg tablet 25 mg PO HS 08/09/21 09/18/22 History Wheeled Walker #1 ea 12/19/21 08/08/22 Rx denosumab 60 mg/mL subcutaneous 0 mg subcut .Q6MO 01/29/22 09/18/22 History syringe (Prolia) multivit with 1 tab PO Q2D 02/14/22 09/18/22 History qqbvsvnr-fhlw-DC-lutein 8 mg iron-400 mcg-300 mcg tablet (Centrum Silver Women) Incentive Spirometer #1 ea 02/21/22 08/08/22 Rx torsemide 5 mg tablet 5 mg PO .COMPLEX Edema 08/08/22 09/18/22 History albuterol sulfate 2.5 mg/3 mL 2.5 mg (3 mL) inhalation Q4H PRN 08/16/22 09/18/22 Rx (0.083 %) solution for nebulization shortness of breath or wheezing #180 mL albuterol sulfate 90 mcg/actuation 2 puff inhalation Q6H PRN 08/16/22 09/18/22 Rx aerosol inhaler shortness of breath or wheezing #1 inhaler sodium chloride 7 % for 4 ml inhalation BID #480 mL 08/16/22 09/18/22 Rx nebulization amoxicillin 500 mg tablet 2,000 mg PO ONCE PRN prophylaxis 08/20/22 09/18/22 Rx #4 tabs docusate sodium 100 mg tablet 200 mg PO DAILY 09/18/22 09/18/22 History food supplemt, lactose-reduced 1 ea PO TID 09/18/22 09/18/22 History (Ensure oral liquid) peg 400-propylene glycol (PF) 0.4 1 drp ophthalmic (eye) BID PRN Dry 09/18/22 09/18/22 History %-0.3 % eye drops in a dropperette Eyes (Systane (PF)) umeclidinium 62.5 mcg-vilanterol 1 inh inhalation HS 09/18/22 09/18/22 History 25 mcg/actuation powdr for inhalation (Anoro Ellipta) fluticasone propionate 50 intranasal 09/24/22 History mcg/actuation nasal spray,suspension guaifenesin 50 mg/5 mL oral liquid 200 mg PO Q4H 09/24/22 09/24/22 History dextromethorphan-guaifenesin 10 10 ml PO Q4H PRN congestion 10/01/22 10/01/22 History mg-100 mg/5 mL oral syrup (Adult Tussin DM) doxycycline monohydrate 100 mg 100 mg PO BID 10/01/22 10/01/22 History tablet Past Med/Surg History Medical History Atrial fibrillation Dx many years ago, s/p multiple cardioversions, s/p dual chamber PPM 2017 with AV junction ablation Blood clot in eye [address] Clark Chronic diastolic (congestive) heart failure EF 55-60% CKD (chronic kidney disease) stage 3, GFR 30-59 ml/min GERD (gastroesophageal reflux disease) controlled, stable per pt with head elevation when sleeping Hiatal hernia History of depression History of ovarian cyst Hyperlipidemia Hypertension controlled, stable per pt Hypothyroidism Osteopenia Pacemaker Dual chamber, Medtronic, implanted [address] Chau Pericardial effusion with cardiac tamponade 2018 > pericardial window ([facility]) Primary hyperparathyroidism Pulmonary hypertension Mild with PASP 36 mmHg. Likely type II for possible combination of type III per pulm, follows with [facility] cardio Pulmonary scarring Schatzki's ring Tricuspid valve 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 Severe TR per 03/28/22 echo Surgical History H/O hand surgery LEFT THUMB JOINT REPLACEMENT H/O partial thyroidectomy 1975 follicular adenoma of left lobe H/O toe surgery BILATERAL INGROWN TOENAILS REMOVED SURGICALLY History of anesthesia reaction "SLOW TO WAKE" History of appendectomy History of atrioventricular brayan ablation 2016 History of bilateral tubal ligation History of breast biopsy BENIGN > SEVERAL BIOPSIES History of cardiac cath 1986 ([facility]), FOR ABNORMAL STRESS TEST > NO STENTS/ANGIOPLASTY History of cardioversion MULTIPLE History of cataract surgery R/L History of cholecystectomy History of colonoscopy History of cystoscopy History of esophagogastroduodenoscopy (EGD) History of sinus surgery History of tonsillectomy History of tooth extraction History of total knee replacement LEFT S/P pericardial window creation 08/2017 - [facility] S/P transesophageal echocardiogram ([facility]) Family History Father Heart disease from scarlet fever Mother Dementia Heart disease Brother Heart disease from rheumatic fever Sister Hypothyroidism Other No family history of adverse response to anesthesia Social History Smoking Status: Never smoker Second Hand Exposure: Yes (IN THE PAST); Hx Alcohol Use: Yes Alcohol type: wine Preferred Language: Chinese Communication Ability: Effective Inside B2[employer] Sales Required: No Beliefs That Will Affect Care: None Current Living Situation: Alone Current Living Situation Comment: [facility]>INDEPENDENTLY Feels Safe at Home: Yes Assistive Devices: Glasses, Nebulizer and Walker Review of Systems All systems reviewed & are unremarkable except as noted in HPI & below. Physical Exam On physical examination of the left hip, she has decreased range of motion. She has pain with forced internal and external rotation.. Constitutional WD/WN, vitals as above Eyes PERRL, conjunctivae normal, anicteric sclerae ENMT external ear and nose normal, oropharynx normal Neck trachea midline, no thyromegaly Respiratory normal respiratory effort, lungs clear to auscultation Cardiovascular RRR, no murmur, no edema Gastrointestinal (Abdomen) normal bowel sounds, soft, nontender, no hepatosplenomegaly Skin no rashes, warm and dry Psychiatric A+Ox3, euthymic affect Results & Data Results & Data Laboratory Results . Diagnostic Findings X-rays of the left hip show advanced osteoarthritis with joint space narrowing osteophyte formation and sxpd-of-ddql articulation. PG Care Time/CCT Total # of Minutes Spent Total Time Spent with Patient: Total time spent is greater than 50% in coordination of care (as documented) at patient's floor/unit and/or counseling patient: Coding Level of Care Code None Diagnoses Osteoarthritis of left hip M16.12
[~2022-10-18 06:10] MED LIST changes: +ACETAMINOPHEN 500 MG TAB PO SCH; -CALC-279 PO; +FAMOTIDINE 20 MG TAB PO SCH; -FLAX10007 PO; +GABAPENTIN 300 MG CAP PO SCH; +LR 500ML BOLUS, THEN 15ML/HR IV SCH; +LR 60ML/HR IV SCH; -METO25TA56 PO; +ORTHO JOINT MIX INFIL SCH; -TORS20TA2 PO; +TRANEXAMIC ACID 1,000 MG **IV Intra-op IV SCH; +ceFAZolin 2000MG 2,000 MG/15 ML SYR IV SCH; +dexAMETHasone 4 MG TAB PO SCH
[2022-10-18] MEDS ORDERED: BUPIVACAINE 0.5 % 5 MG/1 ML PF 10ML VIAL ONE (06:32)
--- NOTE | 2022-10-18 06:45 | History & Physical Bridge Note ---
Date of Service October 18, 2022 History & Physical Bridge Note I have examined the patient, reviewed the History & Physical and in the interval since the performance of the History & Physical I have noted the following changes of clinical significance: no changes noted
[2022-10-18] MEDS ORDERED: MIDAZOLAM HCL 1 MG/ML 2ML VIAL ONE (07:03)
[2022-10-18] MEDS ORDERED: fentaNYL citrate PF 100 MCG/2 ML VIAL ONE ×2 (07:10→08:22)
[2022-10-18] MEDS ORDERED: ONDANSETRON INJ 2 MG/ML 2 ML VIAL IV PRN ×2 (07:32→10:48)
[2022-10-18] MEDS ORDERED: ePHEDrine sulfate 50 MG/ML AMP IV PRN (07:32)
[2022-10-18] MEDS ORDERED: fentaNYL citrate PF 100 MCG/2 ML VIAL IV PRN (07:32)
[2022-10-18] MEDS ORDERED: ATROPINE SULFATE 0.1 MG/ML 10ML SYR IV PRN (07:32)
[2022-10-18] MEDS ORDERED: HYDROmorphone INJ 2 MG/ML SYR/VIAL IV PRN (07:32)
[2022-10-18] MEDS ORDERED: ORTHO JOINT ANESTHETIC ONE (07:53)
[2022-10-18] MEDS: TRANEXAMIC ACID 1,000 MG **IV Pre-op IV SCH ×2 (07:55→10:59)
[2022-10-18] MEDS ORDERED: PROPOFOL IV EMULSION 10 MG/ML 20 ML VIAL IV ONE (08:26)
[2022-10-18] MEDS ORDERED: LIDOCAINE 2% MPF LOCAL 5 ML VIAL ONE (08:26)
[2022-10-18] MEDS ORDERED: ONDANSETRON INJ 2 MG/ML 2 ML VIAL ONE (08:26)
--- NOTE | 2022-10-18 09:22 | Operative Report ---
PG Post Operative Report Pre & Post Diagnosis Operation Date: 10/18/22 08:10 Pre-Op Diagnosis: Degenerative Joint Disease Left Hip Post-Op Diagnosis: Degenerative Joint Disease Left Hip I identified the patient and participated in the time-out.: Yes Procedure Operation Date: 10/18/22 08:10 Actual Procedures p Left Anterior Total Hip Arthroplasty(Left) - Mayur Claudio DO Surgeon Mayur Claudio DO Pottery Striper Mayur Moulton PA-C Estimated Blood Loss 200 Findings Consistent with Post-Op Diagnosis Specimens Left femoral head Description of Procedure Implants used I used a ZimmerBiomet total hip arthroplasty system with a size 7.5 high offset Avenir Complete stem, a 54 mm G7 cup with a 25mm screw, an E1 polyethylene liner, a 40 mm ceramic head with a 0 neck. Catracho arrived at the hospital for the above procedure. She was seen in the preoperative holding area and the operative extremity was identified and signed. She was given a spinal anesthetic, a preoperative antibiotic, and TXA. She was then taken back to the operating room and laid on the table in the supine position. She was given basic sedation. The operative leg was secured to a Puristst leg positioner. The hip was then prepped and draped in sterile fashion. A timeout was done and the patient and the operative extremity was properly identified. An anterior approach was used. Dissection was taken down through the fascia and the tensor muscle belly was retracted laterally and the rectus was retracted medially. The circumflex vessels were identified and ligated. The capsule was then incised and tagged for later repair. The femoral neck was then cut and the femoral head was removed. The acetabulum was exposed. Time was spent doing a complete circumferential labral release. Sequential reaming of the acetabulum up to a size 53 reamer was done. Final reamings were done under fluoroscopy to ensure appropriate version. A Biomet 54 mm G7 cup was then impacted into place. A single 25 mm screw was placed. The E1 polyethylene liner was then snapped into place. Surrounding soft tissues were then injected with 100 cc of an orthopedic pain control cocktail. The proximal femur was then exposed. Sequential broaching up to a size 7.5 broach was done. Off that broach a size 40 head with a 0 neck was trialed. The hip was reduced and fluoroscopic images showed anatomic alignment of the implants in acceptable length. The broach was removed. The final size 7.5 high offset Avenir Complete stem was then impacted into place. A ceramic 40 mm head with a 0 neck was then impacted onto the stem and the hip was reduced. Final fluoroscopic images showed anatomic alignment of the hip. The capsule was then closed with #1 Vicryl suture. A dilute betadyne lavage was then done for 3 minutes. The joint was then irrigated with normal saline solution. The fascia was closed with #1 PDS suture. Skin was closed with 2-0 Vicryl, laura, and a Silverlon dressing. She was then transferred to a hospital bed and taken to the post anesthesia care unit in stable condition. She tolerated the procedure well. Mayur Moulton PA-C, was present for the entire procedure. He was critical for patient positioning, prepping, draping, retraction exposure, wound closure and application of sterile dressing. I attest to the content of the Intraoperative Record and any orders documented therein. Any exceptions are noted below.
--- NOTE | 2022-10-18 10:15 | Fluoroscopy Report ---
FL hip LT 1V CLINICAL HISTORY: LEFT ANTERIOR HIP COMPARISON STUDY: None. FLUOROSCOPY TIME: 16 seconds FLUOROSCOPY IMAGES: 2 Ka,r: 3.0 mGy FINDINGS: There is a left total hip arthroplasty. The hardware appears intact. No fracture or disloca tion. IMPRESSION: Fluoroscopic assistance as above. ACT 112: Negative or not required by law. Electronically signed by: Chin Chu M.D. 10/18/2022 10:13 AM
[2022-10-18] MEDS ORDERED: oxyCODONE HCL IR 5 MG TAB (IMMEDIATE RELEASE) PO PRN (10:48)
[2022-10-18] MEDS ORDERED: guaiFENesin/DEXTROM SYRUP 100MG/10MG 5ML UDC PO PRN (10:48)
[2022-10-18] MEDS ORDERED: CYCLOSPORINE 0.05% OP SCH (10:48)
[2022-10-18] MEDS ORDERED: HYDROmorphone INJ 0.5 MG/0.5 ML SYR IV PRN (10:48)
[2022-10-18] MEDS ORDERED: GUAIFENESIN PO SCH (10:48)
[2022-10-18] MEDS ORDERED: ROSUVASTATIN CALCIUM 5 MG TAB PO SCH (10:48)
[2022-10-18] MEDS ORDERED: bisacodyL 10 MG SUPP PR PRN (10:48)
[2022-10-18] MEDS ORDERED: ALBUTEROL HFA 8 GM INHALER INH PRN (10:48)
[2022-10-18] MEDS ORDERED: NALOXONE HCL 0.4 MG/1 ML VIAL/CARP IV PRN (10:48)
[2022-10-18] MEDS ORDERED: METOCLOPRAMIDE HCL INJ 5 MG/ML 2 ML VIAL IV PRN (10:48)
[2022-10-18] MEDS ORDERED: MAGNESIUM HYDROXIDE SUSP 30 ML UDC PO PRN (10:48)
[2022-10-18] MEDS ORDERED: ALBUTEROL 0.083% NEBU SOLN 3 ML VIAL INH PRN (10:48)
[2022-10-18] MEDS ORDERED: SODIUM CHLORIDE 0.9% 1000ML 1,000 ML IV SCH (10:48)
--- NOTE | 2022-10-18 10:59 | Anesthesiology Progress Note ---
Date of Service October 18, 2022 Anesthesia Post Procedure Vital Signs Vital Signs: Temp Pulse Pulse Resp BP Pulse Ox O2 Del Method 10/18/22 10:20 70 13 116/71 99 Oxymask 10/18/22 10:10 70 15 137/78 97 Oxymask 10/18/22 10:00 70 17 155/91 H 99 Oxymask 10/18/22 09:50 36.1 C L 80 16 137/95 98 Oxymask 10/18/22 06:36 Room Air 10/18/22 06:36 36.6 C 82 20 162/106 H 98 Room Air O2 Flow Rate 10/18/22 10:20 5 10/18/22 10:10 5 10/18/22 10:00 7 10/18/22 09:50 7 10/18/22 06:36 10/18/22 06:36 Transfer of Care Handoff Completed per policy Notes Mental Status: alert / awake / arousable and participated in evaluation Patient Amnestic to Procedure: Yes Nausea / Vomiting: adequately controlled Pain: adequately controlled Airway Patency, RR, SpO2: stable & adequate BP & HR: stable & adequate Hydration State: stable & adequate Anesthetic Complications: no major complications apparent and Pt Satisfied with anesthetic care
--- NOTE | 2022-10-18 11:01 | XRay Report ---
AP PELVIS, CROSSTABLE LATERAL LEFT HIP History: Left total hip arthroplasty. Degenerative arthritis. Postop. FINDINGS: The patient is status post a left total hip arthroplasty. The hardware is intact. No fractu re or dislocation. Skin laura are in place. IMPRESSION: Left total hip arthroplasty. No evidence for hardware complication. ACT 112: Negative or not required by law. Electronically signed by: Chin Chu M.D. 10/18/2022 11:00 AM
[2022-10-18] MEDS ORDERED: ARTIFICIAL TEARS OP PRN (11:15)
[2022-10-18] MEDS: METOPROLOL TARTRATE 50 MG TAB PO SCH (11:25)
[2022-10-18] MEDS: ACETAMINOPHEN 500 MG TAB PO SCH ×2 (15:13→20:47)
[2022-10-18] MEDS: ceFAZolin 2000MG 2,000 MG/15 ML SYR IV SCH ×2 (16:34→23:49)
[2022-10-18] MEDS: SODIUM CHLOR 7% 4 ML NEB INH SCH (19:58)
[2022-10-18] MEDS: FAMOTIDINE 20 MG TAB PO SCH (20:46)
[2022-10-18] MEDS: DOCUSATE SODIUM 100 MG CAP PO SCH (20:46)
[2022-10-18] MEDS ORDERED: METOPROLOL TARTRATE 50 MG TAB PO SCH (21:00)
[2022-10-18] MEDS ORDERED: LOSARTAN POTASSIUM 25 MG TAB PO SCH (21:00)
[2022-10-18] MEDS ORDERED: UMECLIDINIUM/VILANTEROL 62.5/25MCG 7 PUFFS/INHALER INH SCH (21:00)
[2022-10-18] MEDS ORDERED: SENNA 8.6 MG TAB PO SCH (21:00)
[2022-10-19] MEDS: ACETAMINOPHEN 500 MG TAB PO SCH ×2 (05:19→13:02)
[2022-10-19 06:14] LABS: Creatinine Clr Calc Pharmacy 65.8 ml/min; Est GFR (African American) 84.7 ml/min; Est GFR (Non-African American) 73.1 ml/min
[2022-10-19] MEDS ORDERED: LEVOTHYROXINE SODIUM 100 MCG TABLET PO SCH (06:30)
--- NOTE | 2022-10-19 07:29 | Orthopedic Progress Note ---
Date of Service October 19, 2022 Assessment & Plan (1) Status post left hip replacement: Overall she is doing very well. She is not having much pain in the left hip. She will be seen by physical therapy today for ambulation and range of motion exercises. She is on aspirin for DVT prophylaxis. She can be discharged home later today. She will follow-up with orthopedics in 2 weeks. Subjective Etta was seen and examined at bedside this morning. Overall she is doing very well. She is not having much pain in the left hip. She has been up and ambulating to the bathroom. She has no complaints.. Review of Systems All systems reviewed & are unremarkable except as noted in HPI & below. Physical Exam On physical examination of the left hip, the dressing is clean and dry. Her leg is out in full extension. She has active dorsiflexion plantarflexion of her left ankle.. Results & Data Results & Data Laboratory Results . Diagnostic Findings Postoperative x-rays of the left hip show the prosthesis to be in anatomic alignment without any evidence of fracture, dislocation, or loosening.. PG Care Time/CCT Total # of Minutes Spent Total Time Spent with Patient: Total time spent is greater than 50% in coordination of care (as documented) at patient's floor/unit and/or counseling patient: Coding Level of Care Code 41342 Post Operative Follow-Up Diagnoses Status post left hip replacement Z96.642
--- NOTE | 2022-10-19 07:30 | Discharge Summary ---
Date of Service October 19, 2022 Admission HPI (Per Admitting) Catracho is a pleasant 81-year-old female who has been dealing withchronic worsening left hip and groin pain. X-rays have shown advanced osteoarthritis of her left hip. She has failed years of conservative treatment including the anti-inflammatories, physical therapy, intraarticular hip injections, and activity modification. She is ambulating with a cane. After failing conservative treatment, she has elected to proceed with a left anterior total of arthroplasty. Admission Exam (Per Admitting) On physical examination of the left hip, she has decreased range of motion. She has pain with forced internal and external rotation.. Principal Diagnosis Same as "Discharge Diagnosis" noted below under Discharge Instructions. Discharge Exam On physical examination of the left hip, the dressing is clean and dry. Her leg is out in full extension. She has active dorsiflexion plantarflexion of her l eft ankle.. Discharge Data Procedures Performed Operation Date: 10/18/22 08:10 Actual Procedures p Left Anterior Total Hip Arthroplasty(Left) - Mayur Claudio DO Ordered Studies 10/18/22 08:10 FL hip LT 1V Routine Hospital Course (1) Status post left hip replacement: On October 18, 2022 Catracho arrived at [facility] and underwent a left hip replacement without complication. She had a spinal anesthetic. Postoperatively she was started on aspirin for DVT prophylaxis and transferred to the general orthopedic floors. Her hospital course was uneventful. On postop day 1, her vital signs were stable and her pain was well controlled. She was able to participate well with physical therapy doing ambulation and range of motion exercises. She was then discharged home. She will follow-up with orthopedics in 2 weeks. PG Care Time/CCT Total # of Minutes Spent Total Time Spent with Patient: Total time spent is greater than 50% in coordination of care (as documented) at patient's floor/unit and/or counseling patient: Discharge Plan Discharge Items Patient Disposition: Home - Home Health Services Reason For Visit: Degenerative Joint Disease Left Hip Discharge Diagnosis: Left hip replacement Activity: Per Instructions section Non-emergency contact: Surgeon Call non-emergency contact if: your wound has increased redness and your wound has increased drainage Follow-up/Referrals: Nahid Rodgers MD [Primary Care Provider] - Diet: Regular Addtl Attending Provider Instructions: Activity and Therapy Recommendations: * If you are using [facility] then therapy will be provided at your home until they feel you have accomplished all of your goals. * If you are using [facility] then Physical Therapy will be provided until they feel you are ready to start Outpatient Physical Therapy. * If you are not using home therapy then Outpatient Physical Therapy should start about 3-5 days from your day of surgery. Therapy will last about 6-10 weeks * You were shown a series of exercises in the hospital. Do these exercises three times each day including the exercises you were shown in physical therapy. * Get up and walk several times each day.~ For the first four weeks, try not to stand or walk for more than one hour at a time. If you do stand or walk for more than one hour, you will not hurt anything, but your leg will likely swell.~~ * As you feel comfortable, you may change from the walker or crutches to a cane and~then to independent walking. Medications: * Narcotic You will likely be sent home from the hospital with a prescription for the narcotic pain medication that worked best throughout your stay. * Eliquis -continue your home Eliquis as prescribed. * Other medications may be prescribed for specific circumstances. If you have any questions, please call the office at . * Resume previous home medications unless otherwise instructed TEDs/Elastic Stockings: The white elastic stockings help limit swelling and prevent blood clots from forming in your legs. The more you wear them, the more they work. Wear them for six weeks. Dressing Care: Leave the Silverlon dressing in place for 7 days. After 7 days you may remove the dressing. If the incision is not draining then you may leave the laura open to air. If there is a little bit of drainage or if the laura are getting stuck on your clothing then cover the incision with a dry dressing. The laura will be removed at your 2 week follow-up appointment. Showering: You may shower with the Silverlon dressing in place. Do not let the shower spray hit the dressing directly. Pat the Silverlon dressing dry. If the dressing becomes wet underneath, then simply remove the dressing. Keep the incision dry until you are 7 days out from the day of surgery. After 7 days you may remove the Silverlon dressing and shower with the laura exposed. Let soapy water run over the laura and pat them dry. Do not scrub or soak the incision. Things To Watch For: * Drainage from the incision site that occurs more than one week after your surgery. * Increased redness at the incision site. * Fever above 102 degrees Fahrenheit. * Unusual chest pain or shortness of breath. * Call [facility] at with any of the above problems Follow-Up Visit: Follow-up with Dr. Claudio's PA (Mayur Moulton) 2-3 weeks after your day of surgery. He will remove your laura and answer any questions. If you have any additional questions or concerns, Dr Claudio is usually in the office at the same time and will be available An appointment was probably scheduled when you signed-up for surgery in the office. If you have any questions call Office Instructions: More detailed instructions as well as Frequently Asked Questions were provided in a folder by our office when you signed-up for surgery. Please review these instructions when you get home. If you have any further questions or concerns, please feel free to call the office at [phone] Pending Studies at Discharge: No Stand-Alone Forms: [facility], Smoking Cessation Medications and DC Order Prescriptions: New tramadol 50 mg tablet 50 mg PO Q6H PRN (Reason: pain) Qty: 30 0RF Continued (DME) nebulizer accessories Kit See Rx Instructions .ROUTE .MEDSUPPLY Qty: 1 0RF Rx Instructions: NEB KITS - DX COPD WILDLIFE REHABILITATOR amoxicillin 500 mg tablet 2,000 mg PO ONCE PRN (Reason: prophylaxis) Qty: 4 2RF Rx Instructions: ONE HOUR PRIOR TO DENTAL PROCEDURE famotidine 20 mg tablet 20 mg PO BID losartan 25 mg tablet 25 mg PO HS (DME) Flutter Valve Device See Rx Instructions .MEDSUPPLY Qty: 1 0RF Rx Instructions: Use it every 6 hours when awake. (DME) Wheeled Walker Misc See Rx Instructions .MEDSUPPLY Qty: 1 0RF Rx Instructions: As directed sodium chloride 7 % solution for nebulization 4 ml inhalation BID Qty: 480 6RF Rx Instructions: DX: Bronchiectasis J47.9 COPD J44.9 albuterol sulfate 2.5 mg /3 mL (0.083 %) solution for nebulization 2.5 mg inhalation Q4H PRN (Reason: shortness of breath or wheezing) Qty: 180 5RF albuterol sulfate 90 mcg/actuation HFA aerosol inhaler 2 puff inhalation Q6H PRN (Reason: shortness of breath or wheezing) Qty: 1 3RF biotin 1 mg tablet 1 mg PO Q OTHER DAY Restasis MultiDose 0.05 % drops 1 drp ophthalmic (eye) Q12H Centrum Silver Women 8 mg iron-400 mcg-300 mcg tablet 1 tab PO Q2D (DME) Incentive Spirometer Misc See Rx Instructions .MEDSUPPLY Qty: 1 0RF Rx Instructions: As directed acetaminophen [Tylenol] 325 mg Tablet 325 mg PO Q6H PRN (Reason: Pain) levothyroxine 100 mcg Tablet 100 mcg PO DAILYBB metoprolol tartrate 50 mg Tablet See Rx Instructions .ROUTE .COMPLEX Rx Instructions: 50 mg orally ;1 TAB QAM, 1/2 TAB QPM sertraline 25 mg Tablet 25 mg PO QAM Eliquis 5 mg Tablet 5 mg PO BID rosuvastatin 5 mg Tablet 5 mg PO 3XWK Rx Instructions: TAKES MON, WED & FRI. torsemide 5 mg tablet 5 mg PO .COMPLEX Rx Instructions: 5 mg orally EVERY OTHER DAY cholecalciferol (vitamin D3) [Vitamin D3] 25 mcg (1,000 unit) Capsule 2,000 unit PO BID Prolia 60 mg/mL Syringe 0 mg SUBCUT .Q6MO docusate sodium 100 mg Tablet 200 mg PO DAILY Ensure Liquid 1 ea PO TID Patient Comments: ENSURE PROTEIN DRINK Systane (PF) 0.4-0.3 % Dropperette 1 drp OPHTHALMIC (EYE) BID PRN (Reason: Dry Eyes) Anoro Ellipta 62.5-25 mcg/actuation blister with device 1 inh inhalation HS fluticasone propionate [Flonase] 50 mcg/actuation [place],Suspension INTRANASAL guaifenesin 50 mg/5 mL Liquid 200 mg PO Q4H doxycycline monohydrate 100 mg Tablet 100 mg PO BID Rx Instructions: x 10 days dextromethorphan-guaifenesin [Adult Tussin DM] 10-100 mg/5 mL Syrup 10 ml PO Q4H PRN (Reason: congestion) Admission Data Admit Date/Time: 10/18/22 09:48 Attending Provider: Mayur Claudio Admit Provider: Mayur Claudio Primary Care Provider: Nahid Rodgers
[2022-10-19] MEDS: SODIUM CHLOR 7% 4 ML NEB INH SCH (07:38)
[2022-10-19] MEDS ORDERED: dexAMETHasone 4 MG TAB PO SCH (08:00)
[2022-10-19] MEDS: APIXABAN 5 MG TABLET PO SCH ×2 (08:19→08:37)
[2022-10-19] MEDS: FAMOTIDINE 20 MG TAB PO SCH (08:20)
[2022-10-19] MEDS: DOCUSATE SODIUM 100 MG CAP PO SCH (08:20)
[2022-10-19] MEDS: METOPROLOL TARTRATE 50 MG TAB PO SCH (08:21)
[2022-10-19] MEDS ORDERED: SERTRALINE HCL 50 MG TABLET PO SCH (09:00)
[2022-10-19] MEDS ORDERED: DOCUSATE SODIUM 100 MG CAP PO SCH (09:00)
[2022-10-19] MEDS ORDERED: MULTIVITAMIN TAB PO SCH (09:00)
[2022-10-19] MEDS ORDERED: TORSEMIDE 10 MG TAB PO SCH (09:00)
== END 2022-10-19 14:02 ==
LOC: 3E 06:10 → ASU 06:10

== ENCOUNTER 2023-07-22 16:07 | Inpatient (IN) ==
[2023-07-22] MEDS ORDERED: MoRPHine SULFATE 4 MG/ML 1 ML CARP\\VIAL IV STA (16:20)
[2023-07-22] MEDS ORDERED: ONDANSETRON INJ 2 MG/ML 2 ML VIAL IV STA (16:20)
--- NOTE | 2023-07-22 16:28 | Emergency Department Note ---
Impression & Plan Closed pelvic fracture, Acute right hip pain, Fall, Acute head trauma, Coagulopathy ED Provider Note NAME: DAVIDE BARRIOS AGE: 82 SEX: F : 1940 ARRIVES VIA: Ambulance INFORMANT: [Patient][ems] ED PROVIDER(S): [Inderjit Sanchez MD] CHIEF COMPLAINT: Fall HISTORY OF PRESENT ILLNESS: The patient is an 82-year-old female who states that she lost her balance in her home and fell. She fell backwards onto her right buttock and right side and then struck her head. No loss of consciousness. She was not able to get herself up after as she had too much pain in the area of the right hip. Patient denies any current headache or neck pain. No back pain, no abdominal pain or chest pain. She has been in baseline health the last few days. No cough or cold or congestion. No weakness. Of note, the patient is on Eliquis because of a history of A-fib and pacemaker placement. PMHx/PSHx/Social Hx: See Below PHYSICAL EXAM: GENERAL: Patient is in no acute distress. HEENT: No acute trauma, normocephalic atraumatic, mucous membranes moist, no nasal congestion. NECK: No stridor, no adenopathy, nontender cervical spine, trachea is midline. LUNGS: Clear to auscultation bilaterally, no wheeze, no rhonchi, breath sounds equal. HEART: Subtle systolic murmur, regular rate and rhythm. Chest: Nontender chest wall, no rib contusions noted. ABDOMEN: Soft, nontender, no peritonitis. EXTREMITIES: No cyanosis. No lower extremity deformities. She does have some pain with movement of the right hip. No pain to move or palpate the right knee, right ankle or right foot. NEUROLOGIC: Oriented x 3, no acute motor or sensory deficits, no focal weakness. SKIN: No jaundice, no diaphoresis. DIFFERENTIAL DIAGNOSIS: Hip fracture, hematoma, sprain, strain, dislocation, intracranial bleeding, pelvic fracture, among others EMERGENCY DEPARTMENT PROCEDURES: MEDICAL DECISION MAKING: There is no leukocytosis or concerning anemia. There is a normal platelet count. No coagulopathy. No renal failure or significant electrolyte abnormality. Brain CT shows no acute bleed or mass effect. C-spine CT shows no acute fracture. Chest x-ray does not show rib fracture, pneumothorax or pulmonary contusion. There was no pneumonia. Right hip and pelvis film does not show a hip fracture or dislocation, a superior pubic ramus fracture on the right was seen. Hip CT shows a superior and inferior pubic ramus fracture on the right. No true hip fracture. The patient received IV morphine, IV Zofran. She was given IV Dilaudid. She is more comfortable with this medication on board. The patient cannot walk or stand. She has extreme pain with any type of movement. The patient will need to be hospitalized. She will benefit from some rehab and strengthening. Luckily, these fractures are typically nonsurgical. Prior/Outside records/notes reviewed: Orthopedic note from 05/28/2023 discussing her shoulder pain and diagnosis of impingement syndrome. Imaging/x-ray results per my interpretation: Chest x-ray does not show pneumonia, pneumothorax or rib fracture. Right hip and pelvis film does not show any hip fracture or dislocation however, there is a superior ramus fracture noted on the right. Chronic Medical/Social conditions affecting care: Chronic anticoagulation. Care/Management discussed with: Case management and the on-call hospitalist. Level of care consideration(s): After review of the information above and other included data: --I believe the patient requires escalation of care to admission DISPOSITION: Admission with orthopedic consult Past Med/Surg History Medical History (HFpEF) heart failure with preserved ejection fraction Blood clot in eye 2019 CKD (chronic kidney disease) stage 3, GFR 30-59 ml/min Chronic diastolic (congestive) heart failure EF 55-60% Hypothyroidism Pulmonary hypertension Mild with PASP 36 mmHg. Likely type II for possible combination of type III per pulm, follows with [facility] cardio Primary hyperparathyroidism Tricuspid valve 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 Severe TR per 03/28/22 echo Pericardial effusion with cardiac tamponade 2018 > pericardial window ([facility]) Schatzki's ring Hiatal hernia Pulmonary scarring History of ovarian cyst Osteopenia GERD (gastroesophageal reflux disease) controlled, stable per pt with head elevation when sleeping History of depression Pacemaker Dual chamber, [employer], implanted [address] Chau Atrial fibrillation Dx many years ago, s/p multiple cardioversions, s/p dual chamber PPM 2017 with AV junction ablation Hypertension controlled, stable per pt Hyperlipidemia Bronchiectasis Follows with Dr. Clark Surgical History H/O hand surgery LEFT THUMB JOINT REPLACEMENT S/P transesophageal echocardiogram ([facility]) H/O partial thyroidectomy 1975 follicular adenoma of left lobe H/O toe surgery BILATERAL INGROWN TOENAILS REMOVED SURGICALLY History of cataract surgery R/L S/P pericardial window creation 08/2017 - [facility] History of atrioventricular brayan ablation 2016 History of anesthesia reaction "SLOW TO WAKE" History of bilateral tubal ligation History of breast biopsy BENIGN > SEVERAL BIOPSIES History of total knee replacement LEFT History of cholecystectomy History of appendectomy History of cystoscopy History of esophagogastroduodenoscopy (EGD) History of colonoscopy History of tonsillectomy History of tooth extraction History of sinus surgery History of cardiac cath 1986 ([facility]), FOR ABNORMAL STRESS TEST > NO STENTS/ANGIOPLASTY History of cardioversion MULTIPLE Family History Father Heart disease from scarlet fever Mother Dementia Heart disease Brother Heart disease from rheumatic fever Sister Hypothyroidism Other No family history of adverse response to anesthesia Social History Smoking Status: Never smoker Second Hand Exposure: Yes (IN THE PAST); Do You Dip or Chew Tobacco: No; Hx Alcohol Use: Yes Alcohol type: wine Preferred Language: Faroese Communication Ability: Effective Punch Finisher Required: No Beliefs That Will Affect Care: None Current Living Situation: Alone Current Living Situation Comment: lives at [facility]>INDEPENDENTLY Feels Safe at Home: Yes Assistive Devices: Walker Allergies Allergies Allergy/AdvReac Type Severity Reaction Status Date / Time acetylcysteine Allergy Severe caused Verified 07/22/23 17:26 chest tightness, PVB and AFib Iodinated Contrast Media Allergy Severe ANAPHYLAXIS Verified 07/22/23 17:26 rivaroxaban Allergy Severe PERICARDIAL Verified 07/22/23 17:26 EFFUSION shellfish derived Allergy Severe "Seafood" Verified 07/22/23 17:26 -- ANAPHYLAXIS warfarin Allergy Severe "NUMBERS Verified 11/26/22 13:38 WENT TO HIGH" cayenne Allergy Intermediate hives Verified 07/22/23 17:26 erythromycin base Allergy Intermediate RASH Verified 07/22/23 17:26 simvastatin Allergy Intermediate RASH Verified 07/22/23 17:26 Jmfkifz-CXK-HbL Reductase Allergy Intermediate Rash Verified 07/22/23 17:26 Inhibitor [Tidlqmq-Alu-Lia Reductase Inhibitor] capsaicin Allergy Mild hives Verified 07/22/23 17:26 celecoxib Allergy Mild RASH Verified 07/22/23 17:26 nystatin Allergy Mild RASH Verified 07/22/23 17:26 azithromycin Allergy Unknown CAN'T Verified 07/22/23 17:26 REMEMBER alendronate sodium Allergy GI upset Verified 07/22/23 17:26 lumiracoxib Allergy diarrhea Verified 07/22/23 17:26 Sulfa (Sulfonamide Allergy nausea, Verified 07/22/23 17:26 Antibiotics) vomiting lansoprazole [From Prevacid] AdvReac Intermediate FELT Verified 07/22/23 17:26 BLOATED AFTER TAKING black walnut Allergy Intermediate rash Uncoded 07/22/23 17:26 omeprazole Allergy Unknown Unknown Uncoded 07/22/23 17:26 moxifloxacin AdvReac Severe hallucinati Uncoded 11/26/22 13:38 ons Home Meds Home Medications Medication Instructions Recorded Confirmed acetaminophen 325 mg tablet 325 mg PO Q6H PRN Pain 08/28/18 07/22/23 (Tylenol) apixaban 5 mg tablet (Eliquis) 5 mg PO BID 08/28/18 07/22/23 levothyroxine 100 mcg tablet 100 mcg PO DAILYBB 08/28/18 07/22/23 metoprolol tartrate 50 mg tablet See Rx Instructions .Route .COMPLEX 08/28/18 07/22/23 sertraline 25 mg tablet 25 mg PO QAM 08/28/18 07/22/23 rosuvastatin 5 mg tablet 5 mg PO MOWEFR@0900 09/30/18 07/22/23 famotidine 20 mg tablet 20 mg PO BID 08/03/20 07/22/23 cholecalciferol (vitamin D3) 25 2,000 unit PO BID 09/14/20 07/22/23 mcg (1,000 unit) capsule (Vitamin D3) biotin 1 mg tablet 1 mg PO Q OTHER DAY 12/14/20 07/22/23 cyclosporine 0.05 % eye drops 1 drp ophthalmic (eye) Q12H 12/14/20 07/22/23 (Restasis MultiDose) losartan 25 mg tablet 25 mg PO HS 08/09/21 07/22/23 [id number]-[id number] 8 mg-folic 400 1 tab PO Q2D 02/14/22 07/22/23 mcg-K 50 mcg-lutein 300 mcg tablet (Centrum Silver Women) torsemide 5 mg tablet 5 mg PO Q OTHER DAY Edema 08/08/22 07/22/23 docusate sodium 100 mg tablet 200 mg PO DAILY 09/18/22 07/22/23 food supplemt, lactose-reduced 1 ea PO DAILY 09/18/22 07/22/23 (Ensure oral liquid) peg 400-propylene glycol (PF) 0.4 1 drp ophthalmic (eye) BID PRN Dry 09/18/22 07/22/23 %-0.3 % eye drops in a dropperette Eyes (Systane (PF)) umeclidinium 62.5 mcg-vilanterol 1 inh inhalation HS 09/18/22 07/22/23 25 mcg/actuation powdr for inhalation (Anoro Ellipta) amoxicillin 500 mg tablet 2,000 mg PO DIRECTED PRN 07/22/23 07/22/23 prophylaxis dextromethorphan-guaifenesin 10 1 ml PO DAILY 07/22/23 07/22/23 mg-100 mg/5 mL oral liquid (Tussin DM) Previous Rx's Medication Instructions Recorded Flutter Valve #1 ea 08/09/21 Wheeled Walker #1 ea 12/19/21 Incentive Spirometer #1 ea 02/21/22 sodium chloride 7 % for 4 ml inhalation BID #480 mL 08/16/22 nebulization nebulizer accessories #1 ea 11/18/22 Ventolin HFA 90 mcg/actuation 2 puff inhalation Q4H PRN 11/19/22 aerosol inhaler (albuterol sulfate) shortness of breath or wheezing #3 Inhalers Results & Data (ED) Vital Signs Vital Signs - 24 hr 07/22/23 16:18 07/22/23 16:18 07/22/23 16:19 Temperature Temperature Source Pulse Rate 97 H 88 Pulse Rate from SpO2 Sensor 87 Respiratory Rate 21 Blood Pressure 187/129 H Blood Pressure Mean 163 Pulse Oximetry 97 Oxygen Delivery Method Sepsis Recent Fever Within 48 Hours Sepsis New/Unexplained Change in Mental Status Sepsis Action Taken by Nursing 07/22/23 16:20 07/22/23 16:21 07/22/23 16:30 Temperature 36.6 C Temperature Source Oral Pulse Rate 83 97 H 71 Pulse Rate from SpO2 Sensor 83 71 Respiratory Rate 15 16 15 Blood Pressure 187/129 H Blood Pressure Mean 148 Pulse Oximetry 95 96 94 Oxygen Delivery Method Room Air Sepsis Recent Fever Within 48 Hours No Sepsis New/Unexplained Change in Mental Status No Sepsis Action Taken by Nursing No Action Required 07/22/23 17:29 07/22/23 17:30 07/22/23 17:30 Temperature Temperature Source Pulse Rate Pulse Rate from SpO2 Sensor 71 71 Respiratory Rate Blood Pressure 159/94 H Blood Pressure Mean 110 Pulse Oximetry 93 90 Oxygen Delivery Method Sepsis Recent Fever Within 48 Hours Sepsis New/Unexplained Change in Mental Status Sepsis Action Taken by Nursing 07/22/23 17:40 07/22/23 17:50 Temperature Temperature Source Pulse Rate Pulse Rate from SpO2 Sensor 70 71 Respiratory Rate Blood Pressure Blood Pressure Mean Pulse Oximetry 94 90 Oxygen Delivery Method Sepsis Recent Fever Within 48 Hours Sepsis New/Unexplained Change in Mental Status Sepsis Action Taken by [facility] Medications Current Medication List: was personally reviewed by me Laboratory Data Attestation: I reviewed the patient's lab results. 07/22/23 16:14 07/22/23 16:14 Lab Results 07/22/23 Range/Units 16:14 WBC 8.75 (4.8-10.8) K/ul RBC 5.06 (4.20-5.40) M/uL Hgb 15.5 (12.0-16.0) g/dl Hct 46.4 (37.0-47.0) % MCV 91.7 (80.0-100.0) fL MCH 30.6 (25.0-34.0) pg MCHC 33.4 (32.0-36.0) g/dL RDW Std Deviation 50.4 H (36.4-46.3) fL RDW Coeff of Woo 15.0 H (11.5-14.5) % Plt Count 189 (130-400) K/uL MPV 9.9 (9.4-12.4) fL PT 12.3 H (9.0-12.0) Seconds INR 1.1 (0.9-1.1) APTT 27 (21-31) Seconds PTT Ratio 1.0 Sodium 139 (136-145) mmol/L Potassium 4.1 (3.5-5.1) mmol/L Chloride 105 (98-107) mmol/L Carbon Dioxide 27 (21-32) mmol/L Anion Gap 7 (3-11) BUN 17 (6-23) mg/dl Creatinine 0.83 (0.6-1.2) mg/dl Est Cr Clr Drug Dosing 54.3 ml/min Est GFR ( Amer) 75.6 ml/min Est GFR (Non-Af Amer) 65.2 ml/min BUN/Creatinine Ratio 20.5 H (10-20) Glucose 107 H (70-99(Fasting)) mg/dl Calcium 9.9 (8.6-10.3) mg/dl Administered Medications Discontinued Medications Hydromorphone HCl (Hydromorphone Inj 0.5 Mg/0.5 Ml Syr) 0.25 mg IV NOW STA Stop: 07/22/23 17:52 Last Admin: 07/22/23 17:55 Dose: 0.25 mg Documented By: GERARDO Morphine Sulfate (Morphine Sulfate 4 Mg/Ml 1 Ml Carp\\Vial) 4 mg IV NOW STA Stop: 07/22/23 16:21 Last Admin: 07/22/23 16:35 Dose: 4 mg Documented By: VAL Ondansetron HCl (Ondansetron Inj 2 Mg/Ml 2 Ml Vial) 4 mg IV NOW STA Stop: 07/22/23 16:21 Last Admin: 07/22/23 16:36 Dose: 4 mg Documented By: VAL Imaging Data Radiologist's Impression: Cervical Spine CT 07/22/23 16:20 CT cervical spine wo con CLINICAL HISTORY: fall, elquis TECHNIQUE: Multidetector row helical CT of the cervical spine was performed without administration of intravenous contrast. Coronal and sagittal reformations were obtained. Automated dose lowering techniques and/or adjustment according to patient size were utilized for this exam. Comparison: None available at the time of this dictation. FINDINGS: No acute fractures or subluxations are identified. Degenerative changes are seen in the visualized spine. The alignment is normal. Soft tissues are unremarkable. IMPRESSION: Degenerative changes without evidence of acute bony injury. ACT 112: Negative or not required by law. Electronically signed by: Luis Eduardo Cantu M.D. 07/22/2023 5:02 PM Chest X-Ray 07/22/23 16:20 XR chest 1V portable CLINICAL HISTORY: fall TECHNIQUE: Single frontal radiograph of the chest was obtained. Comparison: Comparison is made to chest radiograph 04/11/2022 FINDINGS: An implanted pacemaker is seen. The cardiomediastinal silhouette is normal. The lungs are clear. No evidence of pleural effusion or pneumothorax. IMPRESSION: No acute chest disease. ACT 112: Negative or not required by law. Electronically signed by: Luis Eduardo Cantu M.D. 07/22/2023 5:[address] 07/22/23 16:20 CT head/brain wo con CLINICAL HISTORY: fall, eliquis Technique: Contiguous axial CT images of the head were acquired from the base of the skull to the vertex without intravenous contrast administration. Images were viewed in brain, subdural and bone windows. Automated dose lowering techniques and/or adjustment according to patient size were utilized for this exam. Comparison: Comparison is made to CT head 06/30/2017 Findings: Areas of decreased attenuation are present in the periventricular and subcortical white matter bilaterally consistent with small vessel ischemic disease. Generalized cerebral atrophy with commensurate enlargement of the ventricles, sulci, and cisterns is also present. There is no acute intracranial hemorrhage or evidence of acute territorial infarction. No shift of the midline structures, mass effect, or extra-axial abnormalities are shown. Atherosclerotic calcifications are present in the intracranial segments of the internal carotid arteries. Imaged portions of the paranasal sinuses and mastoid air cells are clear. The orbits appear normal. There are no acute fractures of the calvaria or scalp swelling. Impression: No acute intracranial hemorrhage, skull fractures, or scalp swelling. ACT 112: Negative or not required by law. Electronically signed by: Luis Eduardo Cantu M.D. 07/22/2023 4:59 PM Hip/Pelvis X-Ray 07/22/23 16:20 XR hip RT 2V w pelvis CLINICAL HISTORY: fall, hip pain TECHNIQUE: 2 views of the right hip and single frontal view of the pelvis were obtained. Comparison: Comparison is made to hip radiograph 10/18/2022 FINDINGS: There is no evidence of an acute fracture. Mild degenerative changes are seen in the right hip. Patient is status post left hip total arthroplasty. No soft tissue abnormality is seen. IMPRESSION: Mild degenerative changes in the right hip joint without evidence of acute abnormality. ACT 112: Negative or not required by law. Electronically signed by: Luis Eduardo Cantu M.D. 07/22/2023 5:[address] 01/09/24 17:47 CT hip RT wo con CLINICAL HISTORY: fall, pain TECHNIQUE: Multidetector row helical CT of the right hip was performed without intravenous contrast. Coronal and sagittal reformations were obtained. Automated dose lowering techniques and/or adjustment according to patient size were utilized for this examination. CT DOSE: 657.16 mGy.cm Comparison: Comparison is made to right hip radiograph 07/22/2023 FINDINGS: There is a nondisplaced fracture of the superior and inferior pubic rami. Partially visualized, there may be a fracture of the pubic ramus as well. Mild degenerative changes are seen in the femoroacetabular joint. No femoral fracture is seen. No joint effusion is seen. The soft tissues are unremarkable. IMPRESSION: There are nondisplaced fractures of the superior and inferior pubic rami with possible involvement of the pubic symphysis as well. ACT 112: Negative or not required by law. Electronically signed by: Luis Eduardo Cantu M.D. 07/22/2023 6:51 PM Discharge Plan Visit Data Chief Complaint: Fall ED Provider: Inderjit Sanchez Discharge Problem: Closed pelvic fracture, Acute right hip pain, Fall, Acute head trauma, Coagulopathy Patient Disposition: Admitted As Inpatient Condition: Fair Forms Stand Alone Forms: [employer] Prescriptions Prescriptions: No Action (DME) nebulizer accessories Kit See Rx Instructions .ROUTE .MEDSUPPLY Qty: 1 6RF Rx Instructions: NEB KITS - DX COPD -LON99 albuterol sulfate [Ventolin HFA] 90 mcg/actuation HFA aerosol inhaler 2 puff inhalation Q4H PRN (Reason: shortness of breath or wheezing) Qty: 3 3RF famotidine 20 mg tablet 20 mg PO BID losartan 25 mg tablet 25 mg PO HS (DME) Flutter Valve Device See Rx Instructions .MEDSUPPLY Qty: 1 0RF Rx Instructions: Use it every 6 hours when awake. (DME) Wheeled Walker Misc See Rx Instructions .MEDSUPPLY Qty: 1 0RF Rx Instructions: As directed sodium chloride 7 % solution for nebulization 4 ml inhalation BID Qty: 480 6RF Rx Instructions: DX: Bronchiectasis J47.9 COPD J44.9 biotin 1 mg tablet 1 mg PO Q OTHER DAY Restasis MultiDose 0.05 % drops 1 drp ophthalmic (eye) Q12H Centrum Silver Women 8 mg iron-400 mcg-300 mcg tablet 1 tab PO Q2D (DME) Incentive Spirometer Misc See Rx Instructions .MEDSUPPLY Qty: 1 0RF Rx Instructions: As directed acetaminophen [Tylenol] 325 mg Tablet 325 mg PO Q6H PRN (Reason: Pain) levothyroxine 100 mcg Tablet 100 mcg PO DAILYBB metoprolol tartrate 50 mg Tablet See Rx Instructions .ROUTE .COMPLEX Rx Instructions: 50 mg orally ;1 TAB QAM, 1/2 TAB QPM sertraline 25 mg Tablet 25 mg PO QAM Eliquis 5 mg Tablet 5 mg PO BID rosuvastatin 5 mg Tablet 5 mg PO MOWEFR@0900 Rx Instructions: TAKES MON, WED & FRI. torsemide 5 mg tablet 5 mg PO Q OTHER DAY cholecalciferol (vitamin D3) [Vitamin D3] 25 mcg (1,000 unit) Capsule 2,000 unit PO BID docusate sodium 100 mg Tablet 200 mg PO DAILY Ensure Liquid 1 ea PO DAILY Patient Comments: ENSURE PROTEIN DRINK Systane (PF) 0.4-0.3 % Dropperette 1 drp OPHTHALMIC (EYE) BID PRN (Reason: Dry Eyes) Anoro Ellipta 62.5-25 mcg/actuation blister with device 1 inh inhalation HS dextromethorphan-guaifenesin [Tussin DM] 10-100 mg/5 mL Liquid 1 ml PO DAILY amoxicillin 500 mg tablet 2,000 mg PO DIRECTED PRN (Reason: prophylaxis) Rx Instructions: ONE HOUR PRIOR TO PROCEDUREs Referrals Referrals: Nahid Rodgers MD [Primary Care Provider] - Discharge Problem: Closed pelvic fracture Qualifiers: Encounter type: initial encounter Pelvic bone location: unspecified part of pelvis Fracture alignment: displaced Qualified Code(s): S32.9XXA - Fracture of unspecified parts of lumbosacral spine and pelvis, initial encounter for closed fracture Fall Qualifiers: Encounter type: initial encounter Qualified Code(s): W19.XXXA - Unspecified fall, initial encounter Acute head trauma Qualifiers: Encounter type: initial encounter Qualified Code(s): S09.90XA - Unspecified injury of head, initial encounter
[2023-07-22 16:44] LABS: Hematocrit (blood only) 46.4 % (37.0-47.0); Hemoglobin 15.5 g/dl (12.0-16.0); Mean Corpuscular Hemoglobin 30.6 pg (25.0-34.0); Mean Corpuscular Hgb Conc 33.4 g/dL (32.0-36.0); Mean Corpuscular Volume 91.7 fL (80.0-100.0); Mean Platelet Volume 9.9 fL (9.4-12.4); Platelet Count 189 K/uL (130-400); RDW Standard Deviation 50.4 fL (36.4-46.3); Red Blood Count 5.06 M/uL (4.20-5.40); White Blood Count 8.75 K/ul (4.8-10.8)
[2023-07-22 16:58] LABS: BUN Creatinine Ratio 20.5 (10-20); Calcium 9.9 mg/dl (8.6-10.3); Creatinine Clr Calc Pharmacy 54.3 ml/min; Est GFR (African American) 75.6 ml/min; Est GFR (Non-African American) 65.2 ml/min; Potassium 4.1 mmol/L (3.5-5.1)
--- NOTE | 2023-07-22 17:00 | CT Scan Report ---
CT head/brain wo con CLINICAL HISTORY: fall, eliquis Technique: Contiguous axial CT images of the head were acquired from the base of the skull to the arthur vignesh without intravenous contrast administration. Images were viewed in brain, subdural and [facility]. Automated dose lowering techniques and/or adjustment according to patient size were utilized for this exam. Comparison: Comparison is made to CT head 06/30/2017 Findings: Areas of decreased attenuation are present in the periventricular and subcortical white matter bilate rally consistent with small vessel ischemic disease. Generalized cerebral atrophy with commensurate e nlargement of the ventricles, sulci, and cisterns is also present. There is no acute intracranial hem orrhage or evidence of acute territorial infarction. No shift of the midline structures, mass effect, or extra-axial abnormalities are shown. Atherosclerotic calcifications are present in the intracran ial segments of the internal carotid arteries. Imaged portions of the paranasal sinuses and mastoid air cells are clear. The orbits appear normal. There are no acute fractures of the calvaria or scalp swelling. Impression: No acute intracranial hemorrhage, skull fractures, or scalp swelling. ACT 112: Negative or not required by law. Electronically signed by: Luis Eduardo Cantu M.D. 07/22/2023 4:59 PM
--- NOTE | 2023-07-22 17:04 | CT Scan Report ---
CT cervical spine wo con CLINICAL HISTORY: fall, elquis TECHNIQUE: Multidetector row helical CT of the cervical spine was performed without administration of intravenous contrast. Coronal and sagittal reformations were obtained. Automated dose lowering techn iques and/or adjustment according to patient size were utilized for this exam. Comparison: None available at the time of this dictation. FINDINGS: No acute fractures or subluxations are identified. Degenerative changes are seen in the visualized sp ine. The alignment is normal. Soft tissues are unremarkable. IMPRESSION: Degenerative changes without evidence of acute bony injury. ACT 112: Negative or not required by law. Electronically signed by: Luis Eduardo Cantu M.D. 07/22/2023 5:02 PM
[2023-07-22 17:17] LABS: INR 1.1 (0.9-1.1); Partial Thromboplastin Time 27 Seconds (21-31); Prothrombin Time 12.3 Seconds (9.0-12.0)
--- NOTE | 2023-07-22 17:33 | XRay Report ---
XR chest 1V portable CLINICAL HISTORY: fall TECHNIQUE: Single frontal radiograph of the chest was obtained. Comparison: Comparison is made to chest radiograph 04/11/2022 FINDINGS: An implanted pacemaker is seen. The cardiomediastinal silhouette is normal. The lungs are clear. No e vidence of pleural effusion or pneumothorax. IMPRESSION: No acute chest disease. ACT 112: Negative or not required by law. Electronically signed by: Luis Eduardo Cantu M.D. 07/22/2023 5:32 PM
--- NOTE | 2023-07-22 17:35 | XRay Report ---
XR hip RT 2V w pelvis CLINICAL HISTORY: fall, hip pain TECHNIQUE: 2 views of the right hip and single frontal view of the pelvis were obtained. Comparison: Comparison is made to hip radiograph 10/18/2022 FINDINGS: There is no evidence of an acute fracture. Mild degenerative changes are seen in the right hip. Patie nt is status post left hip total arthroplasty. No soft tissue abnormality is seen. IMPRESSION: Mild degenerative changes in the right hip joint without evidence of acute abnormality. ACT 112: Negative or not required by law. Electronically signed by: Luis Eduardo Cantu M.D. 07/22/2023 5:34 PM
[2023-07-22] MEDS ORDERED: HYDROmorphone INJ 0.5 MG/0.5 ML SYR IV STA (17:51)
--- NOTE | 2023-07-22 18:50 | History & Physical Report ---
Date of Service July 22, 2023 Assessment & Plan (1) Fall: (2) Acute right hip pain: (3) Closed pelvic fracture: (4) Atrial fibrillation: (5) (HFpEF) heart failure with preserved ejection fraction: (6) Bronchiectasis: (7) Hypothyroidism: (8) GERD (gastroesophageal reflux disease): (9) HLD (hyperlipidemia): Plan This is an 82-year-old female with PMH of bronchiectasis, chronic atrial fibrillation status post AV brayan ablation on anticoagulation, chronic diastolic CHF, status post pacemaker placement, hypertension, depression and other medical problems listed below who presents after fall and was found to have nondisplaced fractures of the superior and inferior pubic rami. Mechanical fall Non displaced fractures of superior and inferior rami Mechanical fall while ambulating with walker at independent living facility dining room No head trauma. CT head without acute intracranial hemorrhage, skull fractures, or scalp swelling Hip CT with nondisplaced fractures of the superior and inferior pubic rami with possible involvement of the pubic symphysis as well Dr. Claudio of ortho surgery aware - WBAT, will evaluate tomorrow Pain control with PRN Tylenol, PRN dilaudid for severe pain, lidocaine patch PT/OT evaluate when appropriate Resides at [facility], ambulates with walker at baseline Atrial fibrillation on anticoagulation Continue Lopressor No head trauma with fall, CT head without abnormality, okay to continue Eliquis BID for anticoagulation HFpEF Was due for torsemide today but will hold due to very limited PO intake; monitor volume status and resume as appropriate. Continue Lopressor Bronchiectasis At respiratory baseline. Admitting CXR with no acute chest disease. Continue Flutter valve TID when awake, hypertonic saline nebs, Anoro Ellipta HS, Ventolin inh PRN Hypothyroidism Continue levothyroxine Recent parathyroidectomy Continue vitamin D BID HLD Continue statin GERD Continue H2 ernie BID DVT Ppx: Eliquis Code status: FULL PCP: Ana Maria Dispo: admitted to med/tele Patient seen in collaboration with Dr. Shaver. Please see addendum. History of Present Illness Chief Complaint: Fall Primary Care Provider: Nahid Rodgers MD This is an 82-year-old female with PMH of bronchiectasis, chronic atrial fibrillation status post AV brayan ablation on anticoagulation, chronic diastolic CHF, status post pacemaker placement, hypertension, depression and other medical problems listed below who presents after fall. Patient lives alone in [facility] independent living and ambulates with a walker. Follows with Dr. Rodgers for primary care. Patient was ambulating in the dining room and tripped during a percy transition and was brought in for further evaluation. No preceding lightheadedness or CP. H/o L knee and hip replacement. Denies hitting head. Comfortable at rest but significant pain with any movement. Pain on lateral aspect of R hip radiating in towards groin. No F/C, lightheadedness, CP, SOB, N/V, abdominal pain, dysuria, diarrhea or constipation. Allergies Allergy/AdvReac Type Severity Reaction Status Date / Time acetylcysteine Allergy Severe caused Verified 07/22/23 17:26 chest tightness, PVB and AFib Iodinated Contrast Media Allergy Severe ANAPHYLAXIS Verified 07/22/23 17:26 rivaroxaban Allergy Severe PERICARDIAL Verified 07/22/23 17:26 EFFUSION shellfish derived Allergy Severe "Seafood" Verified 07/22/23 17:26 -- ANAPHYLAXIS warfarin Allergy Severe "NUMBERS Verified 11/26/22 13:38 WENT TO HIGH" cayenne Allergy Intermediate hives Verified 07/22/23 17:26 erythromycin base Allergy Intermediate RASH Verified 07/22/23 17:26 simvastatin Allergy Intermediate RASH Verified 07/22/23 17:26 Mldfpad-IEJ-McC Reductase Allergy Intermediate Rash Verified 07/22/23 17:26 Inhibitor [Mjbawkk-Uoj-Lnk Reductase Inhibitor] capsaicin Allergy Mild hives Verified 07/22/23 17:26 celecoxib Allergy Mild RASH Verified 07/22/23 17:26 nystatin Allergy Mild RASH Verified 07/22/23 17:26 azithromycin Allergy Unknown CAN'T Verified 07/22/23 17:26 REMEMBER alendronate sodium Allergy GI upset Verified 07/22/23 17:26 lumiracoxib Allergy diarrhea Verified 07/22/23 17:26 Sulfa (Sulfonamide Allergy nausea, Verified 07/22/23 17:26 Antibiotics) vomiting lansoprazole [From Prevacid] AdvReac Intermediate FELT Verified 07/22/23 17:26 BLOATED AFTER TAKING black walnut Allergy Intermediate rash Uncoded 07/22/23 17:26 omeprazole Allergy Unknown Unknown Uncoded 07/22/23 17:26 moxifloxacin AdvReac Severe hallucinati Uncoded 11/26/22 13:38 ons Home Medications Medication Instructions Recorded Confirmed Type acetaminophen 325 mg tablet 325 mg PO Q6H PRN Pain 08/28/18 07/22/23 History (Tylenol) apixaban 5 mg tablet (Eliquis) 5 mg PO BID 08/28/18 07/22/23 History levothyroxine 100 mcg tablet 100 mcg PO DAILYBB 08/28/18 07/22/23 History metoprolol tartrate 50 mg tablet See Rx Instructions .Route .COMPLEX 08/28/18 07/22/23 History sertraline 25 mg tablet 25 mg PO QAM 08/28/18 07/22/23 History rosuvastatin 5 mg tablet 5 mg PO MOWEFR@0900 09/30/18 07/22/23 History famotidine 20 mg tablet 20 mg PO BID 08/03/20 07/22/23 History cholecalciferol (vitamin D3) 25 2,000 unit PO BID 09/14/20 07/22/23 History mcg (1,000 unit) capsule (Vitamin D3) biotin 1 mg tablet 1 mg PO Q OTHER DAY 12/14/20 07/22/23 History cyclosporine 0.05 % eye drops 1 drp ophthalmic (eye) Q12H 12/14/20 07/22/23 History (Restasis MultiDose) Flutter Valve #1 ea 08/09/21 07/22/23 Rx losartan 25 mg tablet 25 mg PO HS 08/09/21 07/22/23 History Wheeled Walker #1 ea 12/19/21 07/22/23 Rx wxbjisps-ggqr-tjys 8 mg-folic 400 1 tab PO Q2D 02/14/22 07/22/23 History mcg-K 50 mcg-lutein 300 mcg tablet (Centrum Silver Women) Incentive Spirometer #1 ea 02/21/22 07/22/23 Rx torsemide 5 mg tablet 5 mg PO Q OTHER DAY Edema 08/08/22 07/22/23 History sodium chloride 7 % for 4 ml inhalation BID #480 mL 08/16/22 07/22/23 Rx nebulization docusate sodium 100 mg tablet 200 mg PO DAILY 09/18/22 07/22/23 History food supplemt, lactose-reduced 1 ea PO DAILY 09/18/22 07/22/23 History (Ensure oral liquid) peg 400-propylene glycol (PF) 0.4 1 drp ophthalmic (eye) BID PRN Dry 09/18/22 07/22/23 History %-0.3 % eye drops in a dropperette Eyes (Systane (PF)) umeclidinium 62.5 mcg-vilanterol 1 inh inhalation HS 09/18/22 07/22/23 History 25 mcg/actuation powdr for inhalation (Anoro Ellipta) nebulizer accessories #1 ea 11/18/22 07/22/23 Rx Ventolin HFA 90 mcg/actuation 2 puff inhalation Q4H PRN 11/19/22 07/22/23 Rx aerosol inhaler (albuterol sulfate) shortness of breath or wheezing #3 Inhalers amoxicillin 500 mg tablet 2,000 mg PO DIRECTED PRN 07/22/23 07/22/23 History prophylaxis dextromethorphan-guaifenesin 10 1 ml PO DAILY 07/22/23 07/22/23 History mg-100 mg/5 mL oral liquid (Tussin DM) Past Med/Surg History Medical History (Updated 07/22/23 @ 19:45 by Rochelle Healy PA-C) (HFpEF) heart failure with preserved ejection fraction Blood clot in eye 2019 CKD (chronic kidney disease) stage 3, GFR 30-59 ml/min Chronic diastolic (congestive) heart failure EF 55-60% Hypothyroidism Pulmonary hypertension Mild with PASP 36 mmHg. Likely type II for possible combination of type III per pulm, follows with [facility] cardio Primary hyperparathyroidism Tricuspid valve 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 Severe TR per 03/28/22 echo Pericardial effusion with cardiac tamponade 2018 > pericardial window ([facility]) Schatzki's ring Hiatal hernia Pulmonary scarring History of ovarian cyst Osteopenia GERD (gastroesophageal reflux disease) controlled, stable per pt with head elevation when sleeping History of depression Pacemaker Dual chamber, [employer], implanted [address] Chau Atrial fibrillation Dx many years ago, s/p multiple cardioversions, s/p dual chamber PPM 2017 with AV junction ablation Hypertension controlled, stable per pt Hyperlipidemia Bronchiectasis Follows with Dr. Clark Surgical History H/O hand surgery LEFT THUMB JOINT REPLACEMENT S/P transesophageal echocardiogram ([facility]) H/O partial thyroidectomy 1975 follicular adenoma of left lobe H/O toe surgery BILATERAL INGROWN TOENAILS REMOVED SURGICALLY History of cataract surgery R/L S/P pericardial window creation 08/2017 - [facility] History of atrioventricular brayan ablation 2016 History of anesthesia reaction "SLOW TO WAKE" History of bilateral tubal ligation History of breast biopsy BENIGN > SEVERAL BIOPSIES History of total knee replacement LEFT History of cholecystectomy History of appendectomy History of cystoscopy History of esophagogastroduodenoscopy (EGD) History of colonoscopy History of tonsillectomy History of tooth extraction History of sinus surgery History of cardiac cath 1986 ([facility]), FOR ABNORMAL STRESS TEST > NO STENTS/ANGIOPLASTY History of cardioversion MULTIPLE Family History Father Heart disease from scarlet fever Mother Dementia Heart disease Brother Heart disease from rheumatic fever Sister Hypothyroidism Other No family history of adverse response to anesthesia Social History Smoking Status: Never smoker Second Hand Exposure: Yes (IN THE PAST); Do You Dip or Chew Tobacco: No; Hx Alcohol Use: Yes Alcohol type: wine Preferred Language: British Communication Ability: Effective Buffing Wheel Operator Required: No Beliefs That Will Affect Care: None Current Living Situation: Alone Current Living Situation Comment: lives at [facility]INDEPENDENTLY Feels Safe at Home: Yes Assistive Devices: Walker Review of Systems Review of Systems: At least ten systems reviewed and negative except as noted in the HPI. Physical Exam Physical Exam: Please see Dr. Shaver' addendum for physical exam. Results & Data Results & Data Vital Signs (Past 12 Hours) Vital Signs Temp Pulse Resp BP Pulse Ox O2 Del Method 07/22/23 17:50 90 07/22/23 17:40 94 07/22/23 17:30 90 07/22/23 17:30 159/94 H 07/22/23 17:29 93 07/22/23 16:30 71 15 94 07/22/23 16:21 36.6 C 97 H 16 187/129 H 96 Room Air 07/22/23 16:20 83 15 95 07/22/23 16:19 88 07/22/23 16:18 187/129 H 07/22/23 16:18 97 H 21 97 Laboratory Results Short CBC 07/22/23 Range/Units 16:14 WBC 8.75 (4.8-10.8) K/ul Hgb 15.5 (12.0-16.0) g/dl Hct 46.4 (37.0-47.0) % Plt Count 189 (130-400) K/uL BMP 07/22/23 16:14 Sodium 139 Potassium 4.1 Chloride 105 Carbon Dioxide 27 BUN 17 Creatinine 0.83 Glucose 107 H Calcium 9.9 Diagnostic Findings Cervical Spine CT 07/22/23 16:20 CT cervical spine wo con CLINICAL HISTORY: fall, elquis TECHNIQUE: Multidetector row helical CT of the cervical spine was performed without administration of intravenous contrast. Coronal and sagittal reformations were obtained. Automated dose lowering techniques and/or adjustment according to patient size were utilized for this exam. Comparison: None available at the time of this dictation. FINDINGS: No acute fractures or subluxations are identified. Degenerative changes are seen in the visualized spine. The alignment is normal. Soft tissues are unremarkable. IMPRESSION: Degenerative changes without evidence of acute bony injury. ACT 112: Negative or not required by law. Electronically signed by: Luis Eduardo Cantu M.D. 07/22/2023 5:02 PM Chest X-Ray 07/22/23 16:20 XR chest 1V portable CLINICAL HISTORY: fall TECHNIQUE: Single frontal radiograph of the chest was obtained. Comparison: Comparison is made to chest radiograph 04/11/2022 FINDINGS: An implanted pacemaker is seen. The cardiomediastinal silhouette is normal. The lungs are clear. No evidence of pleural effusion or pneumothorax. IMPRESSION: No acute chest disease. ACT 112: Negative or not required by law. Electronically signed by: Luis Eduardo Cantu M.D. 07/22/2023 5:[address] 07/22/23 16:20 CT head/brain wo con CLINICAL HISTORY: fall, eliquis Technique: Contiguous axial CT images of the head were acquired from the base of the skull to the vertex without intravenous contrast administration. Images were viewed in brain, subdural and bone windows. Automated dose lowering techniques and/or adjustment according to patient size were utilized for this exam. Comparison: Comparison is made to CT head 06/30/2017 Findings: Areas of decreased attenuation are present in the periventricular and subcortical white matter bilaterally consistent with small vessel ischemic disease. Generalized cerebral atrophy with commensurate enlargement of the ventricles, sulci, and cisterns is also present. There is no acute intracranial hemorrhage or evidence of acute territorial infarction. No shift of the midline structures, mass effect, or extra-axial abnormalities are shown. Atherosclerotic calcifications are present in the intracranial segments of the internal carotid arteries. Imaged portions of the paranasal sinuses and mastoid air cells are clear. The orbits appear normal. There are no acute fractures of the calvaria or scalp swelling. Impression: No acute intracranial hemorrhage, skull fractures, or scalp swelling. ACT 112: Negative or not required by law. Electronically signed by: Luis Eduardo Cantu M.D. 07/22/2023 4:59 PM Hip/Pelvis X-Ray 07/22/23 16:20 XR hip RT 2V w pelvis CLINICAL HISTORY: fall, hip pain TECHNIQUE: 2 views of the right hip and single frontal view of the pelvis were obtained. Comparison: Comparison is made to hip radiograph 10/18/2022 FINDINGS: There is no evidence of an acute fracture. Mild degenerative changes are seen in the right hip. Patient is status post left hip total arthroplasty. No soft tissue abnormality is seen. IMPRESSION: Mild degenerative changes in the right hip joint without evidence of acute abnormality. ACT 112: Negative or not required by law. Electronically signed by: Luis Eduardo Cantu M.D. 07/22/2023 5:34 PM Supervising Physician Co-Signing Physician Notes I have seen and discussed the case with the collaborating JASPREET. I agree with the above H&P. I have reviewed and confirmed the patients medical history, the findings on physical examination, and the patients diagnosis and treatment plan with Niraj VOGEL and agree with the information documented. In short, Ms. Penn is an 82 year old woman with complex medical history who is presenting after fall and found to have superior/inferior pubic rami fracture. Patient reports fall is mechanical in nature and has been otherwise in good state of health. Ortho consulted--communication over [employer] recommends WBAT. Labs stable. VS WNL. Imaging as above. Physical exam: General: Pleasant and AOx4, NAD--but reports notable pain with movement CV RRR, no murmur appreciated RESP CTABL GI NTND MSK: Right groin pain, unable to move right leg 2/2 pain that extends from groin into buttock #Superior&Inferior Pubic rami fractures #Mechanical Fall -WBAT -Ortho consult, formal eval in am -PT/OT -Pain management prn Rest of plan as above (1) Fall Encounter type: initial encounter Qualified Code(s): W19.XXXA - Unspecified fall, initial encounter (3) Closed pelvic fracture Encounter type: initial encounter Fracture alignment: displaced Pelvic bone location: unspecified part of pelvis Qualified Code(s): S32.9XXA - Fracture of unspecified parts of lumbosacral spine and pelvis, initial encounter for closed fracture
--- NOTE | 2023-07-22 18:53 | CT Scan Report ---
CT hip RT wo con CLINICAL HISTORY: fall, pain TECHNIQUE: Multidetector row helical CT of the right hip was performed without intravenous contrast. Coronal and sagittal reformations were obtained. Automated dose lowering techniques and/or adjustment according to patient size were utilized for this examination. CT DOSE: 657.16 mGy.cm Comparison: Comparison is made to right hip radiograph 07/22/2023 FINDINGS: There is a nondisplaced fracture of the superior and inferior pubic rami. Partially visualized, there may be a fracture of the pubic ramus as well. Mild degenerative changes are seen in the femoroacetab ular joint. No femoral fracture is seen. No joint effusion is seen. The soft tissues are unremarkabl e. IMPRESSION: There are nondisplaced fractures of the superior and inferior pubic rami with possible involvement of the pubic symphysis as well. ACT 112: Negative or not required by law. Electronically signed by: Luis Eduardo Cantu M.D. 07/22/2023 6:51 PM
--- OUTSIDE RECORDS SUMMARY | 2023-07-22 20:17 | External Medical Summary | Summary of Care ---
Author Name Unknown Organization [facility] Address [address] [address] Phone [phone] Care Team Providers Care Therapy Site Coordinator Name Role Phone Nahid Rodgers MD Primary Care Provider + Encounter Details Date Type Department Care Team (Late st Contact Info) Description 07/15/2023 Result Scan Unspecified Department Donte Chau, DO [address] [place] [address] <No scans attached> Allergies Active Allergy Reactions Criticality Noted Date Comments Acetylcysteine High 02/14/2022 Other reaction(s): caused chest tightness, PVB and AFib Alendronate Sodium 12/13/2008 Other reaction(s): GI Upset Moxifloxacin Hcl In Nacl 04/01/2016 Hallucinations Black Mooers Pollen Allergy Skin Test Rash High 10/16/2018 Burning sensation in mouth and throat Capsaicin Hives,Rash 01/08/2011 Cayenne Hives High 02/16/2008 Celecoxib Rash 03/27/2017 Erythromycin Rash 01/22/2015 Food (See Comments) Rash Low 05/20/2016 Walnuts Iodinated Contrast Media Anaphylaxis High 01/22/2015 Anaphylaxis 1988 with cardiac cath [facility], was recently confirmed December 2016 in Allergy Department [facility] Lumiracoxib Diarrhea 01/09/2007 Omeprazole 08/02/2015 Diarrhea, hair loss, abdominal bloating Rivaroxaban High 02/14/2022 Other reaction(s): PERICARDIAL EFFUSION Simvastatin Rash 02/15/2015 Can tolerate Crestor Sulfa Antibiotics Nausea/vomiting 01/22/2015 Warfarin 02/14/2022 Other reaction(s): "NUMBERS WENT TO HIGH" documented as of this encounter (statuses as of 07/15/2023) Medications Medication Sig Dispensed Refills Start Date End Date Status Ventolin HFA 108 (90 Base) MCG/ACT Inhalation Aerosol Solution INHALE 2 PUFFS BY MOUTH EVERY 6 HOURS NEEDED FOR SHORTNESS OF BREATH OR WHEEZING 0 1 Active Systane 0.4-0.3 % Ophthalmic Gel (Polyethyl Glycol-Propyl Glycol) Use as directed. 0 Active Anoro Ellipta 62.5-25 MCG/INH Inhalation Aerosol Powder Breath Activated Inhale 1 Puff by mouth in the morning. 0 1 Active Restasis 0.05 % Ophthalmic Emulsion (cycloSPORINE) Instill 1 Drop into both eyes in the morning and 1 Drop before bedtime. 0 Active Vitamin D (Cholecalciferol) 25 MCG (1000 UT) Oral Capsule Take 4 Caps by mouth daily. 4 Cap 0 1 Active Ensure Nutrition Shake Oral Liquid Take by mouth. Once a day 0 Active Docusate Sodium 100 MG Oral Capsule Take 1 Capsule by mouth in the morning and 1 Capsule before bedtime. 0 Active Centrum Silver 50+Women Oral Tablet Take by mouth. 0 Active Acetaminophen 325 MG Oral Tablet (Tylenol) Take 1 Tablet by mouth every 6 hours as needed. 0 Active Torsemide 5 MG Oral Tablet (Demadex)Indications:Chr onic atrial fibrillation (HCC) One tablet as needed daily for swelling and shortness of breath. 34 Tablet 11 2 Active Additional Information Patient taking differently: EVERY OTHER DAY, One tablet as needed daily for swelling and shortness of breath., Reported on 05/20/2022 Denosumab 60 MG/ML Subcutaneous Solution Prefilled Syringe (Prolia) 0 2 Active Rosuvastatin Calcium 5 MG Oral Tablet (Crestor)Indications:Pur e hypercholesterolemia TAKE 1 TABLET BY MOUTH EVERY FRIDAY, FRIDAY, AND FRIDAY 40 Tablet 3 3 Active Metoprolol Tartrate 50 MG Oral Tablet (Lopressor)Indications:P aroxysmal atrial fibrillation (HCC) TAKE 1 TABLET BY MOUTH EVERY MORNING AND TAKE 1/2 TABLET BY MOUTH EVERY EVENING 135 Tablet 3 3 Active Amoxicillin 500 MG Oral Tablet Before dental appointments 0 3 Active Levothyroxine Sodium 100 MCG Oral Tablet (Levoxyl)Indications:Acq uired hypothyroidism TAKE 1 TABLET BY MOUTH EVERY MORNING AT LEAST 30 MINUTES PRIOR TO BREAKFAST OR OTHER MEDICATIONS. 90 Tablet 3 3 Active Eliquis 5 MG Oral Tablet (Apixaban)Indications:Ch ronic atrial fibrillation (HCC),Paroxysmal atrial fibrillation (HCC) TAKE 1 TABLET BY MOUTH TWO TIMES DAILY 180 Tablet 3 3 Active Hydrocortisone 2.5 % External CreamIndications:Angular cheilitis Apply topically to affected area 3 times a day. To affected area. 30 g 5 3 Active Nystatin 625298 UNIT/GM External CreamIndications:Angular cheilitis Apply topically to affected area 2 times a day. To affacted area for two weeks. 15 g 2 3 Active Famotidine 20 MG Oral Tablet (Pepcid) Take 1 Tablet by mouth 2 times a day as needed for Heartburn. 180 Tablet 1 3 Active Additional Information Patient taking differently:20 mg OralDaily(AM), Pt unsure about dosage, Reported on 05/07/2023 Sertraline HCl 25 MG Oral Tablet (Zoloft) Take 1 Tablet by mouth in the morning. 90 Tablet 1 3 Active Losartan Potassium 25 MG Oral Tablet (Cozaar)Indications:HTN, goal below 140/90 Take 1 Tablet by mouth at bedtime. 90 Tablet 2 3 Active Silver sulfADIAZINE 1 % External Cream (Silvadene) Apply to right great toe once daily. 50 g 2 3 Active Ondansetron HCl 4 MG Oral TabletIndications:Biliou s vomiting with nausea Take 1 Tablet by mouth every 6 hours as needed for Nausea. 30 Tablet 0 3 Active documented as of this encounter (statuses as of 07/15/2023) Active Problems Problem Noted Date Diagnosed Date Hiatal hernia 10/10/2022 Renal calculus, left 10/10/2022 Restrictive lung disease 07/18/2022 Status post left knee replacement 10/24/2021 Pancreas cyst 09/05/2021 HTN, goal below 140/90 08/03/2021 Chronic diastolic congestive heart failure 10/20 Chronic fatigue 07/28/2019 Senile osteoporosis 07/28/2019 SWAIN (dyspnea on exertion) 07/28/2019 Hyperparathyroidism, primary 11/23/2018 Low back pain without sciatica 11/23/2018 Severe tricuspid 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 09/24/2018 half-way current use of anticoagulant therapy 0 09/24/2018 History of compression fracture of spine 018 Major depressive disorder wi th single episode, in full remission 04/06/2018 Chronic atrial fibrillation 01/12/2018 S/P AV brayan ablation 12/13/2016 Cardiac pacemaker in situ 12/13/2016 Postoperative hypothyroidism 03/04/2016 Hyperlipidemia Bronchiectasis Osteoarthritis Overview: especially thumbs documented as of this encounter (statuses as of 07/15/2023) Resolved Problems Problem Noted Date Diagnosed Date Resolved Date Hyperparathyroidism 07/18/2022 02/18/20 23 Stage 3a chronic kidney disease 07/18/2022 07/25/2022 COPD, group B, by GOLD 2017 classification 04/22/2022 07/18/2022 Overview: Per COPD GOLD Classification Prediabetes 04/23/2021 08/29/2021 COPD, moderate 10/20/2020 04/25/2022 Overview: Per COPD GOLD Classification Secondary hyperparathyroidism, non-renal 10/20/2020 02/28/2021 Chronic kidney disease, stage 3 unspecified 10/20/2020 11/23/2020 Kidney disease, chronic, sta ge III (GFR 30-59 ml/min) 01/24/2020 02/19/2023 Overview: Per CKD protocol Mild reactive airways disease 09/08/2019 10/18/2020 GERD (gastroesophageal reflux disease) 07/28/2019 07/28/2019 Overview: w/hiatal hernia & schatzki's ring; EGD with dilation 2013 Osteoporosis 07/28/2019 07/28/2019 Pre-diabetes 07/28/2019 01/27/2020 Atelectasis of both lungs 07/28/2019 Asthma with severity to be determined 07/28/2019 09/08/2019 Myalgia 02/13/2019 07/28/2019 Malaise and fatigue 02/13/2019 07/28/19 20 Elevated blood sugar 11/23/2018 020 Chronic diastolic congestive heart failure 04/01/2017 09/24/2018 Heart failure, unspecified 04/01/2017 1 Pericardial effusion 02/22/2017 018 CHB (complete heart block) 01/30/2017 0 09/22/2017 Ectopic atrial tachycardia 2015 0 04/06/2018 Acute non-recurrent frontal sinusitis 11/28/2015 09/22/2017 Pneumonia due to infectious organism 11/28/2015 09/22/2017 Asymptomatic bilateral carot id artery stenosis 03/22/2015 04/06/2018 Chest discomfort 03/22/2015 09/22/2017 Concussion 12/12/2014 09/22/2017 Overview: unwitnessed head injury following a fall Acquired hypothyroidism 12/13 Overview: follicular adenoma left lobe removed 1975; on levothyroxine since Paroxysmal atrial fibrillation 01/15/2018 Overview: chemical cardioversion 09/2014 after running of of atenolol Microscopic hematuria 2017 documented as of this encounter (statuses as of 07/15/2023) Immunizations Name Administration Dates Next Due COVID-19 mRNA, LNP-s, No Pre serve, 2-Dose Series (Moderna) 09/15/2020,08/11/2020 COVID-19 mRNA, LNP-s, PF, 18 + or 6-11Yrs (Moderna) 08/14/2020,07/14/2020 COVID-19, MRNA-LNP, 23-24, P F, 50 MCG/0.5 mL, 12 YRS AND ABOVE, IM (MODERNA-Spikevax) 05/22/2023 COVID-19, mRNA, LNP-s, PF, B ooster, 100mcg/0.5mg (Moderna) 10/18/2021,05/06/2021 Covid-19, Mrna, Lnp-s, Pf, B ivalent, 50 Mcg, IM, 12 yrs and above (Moderna) 04/10/2022 DTP Vaccine 02/19/2019 H1N1 2009 Influenza, IM 07/19/2009 Pneumococcal Conjugate Vacc, 13 Valent (Prevnar) 03/05/2016 Pneumococcal Polysaccharide PPV23 (Pneumovax) 01/29/2012,09/14/2002 RSV Vac., Recomb, Adjuvant, PF,0.5 Ml (Arexvy) 04/02/2023 Seasonal Influenza Virus Vac cine, Unspecified Formulation 04/28/2019 Seasonal Influenza, PF, 6 M & above, IM , (FluLaval or Fluzone) 05/22/2017 Seasonal Influenza, Quadriva lent Hd (Fluzone Hd) 03/24/2023,04/22/2022,04/03/2021 Seasonal Influenza, Quadriva lent Hd, 65+ Yrs 05/07/2020 Seasonal Influenza, Quadriva lent, No Preserve, IM 04/20/2018,03/27/2016,04/27/2015 Seasonal Influenza, Split, I IV3, No Preserve, Inj 06/01/2012,05/30/2011 Seasonal Influenza, Split, I IV3, With Preserve, Inj 05/14/2010,03/24/2009,06/29/2008,06/26,05/25/2005,05/14/2004,05/12/2003 ,06/07/2002,05/26/2001,06/18/2000,04/14,06/12/1998,04/26/1993, 2 Seasonal Influenza, Trivalen t, Adjuvanted, 65+ yrs 04/25/2020 TD - Tetanus/Diptheria (ADULT) 05/21/1999,1991 TDAP (age 10 and older)(Boostrix) 02/17/2019,12/2008 Varicella Zoster Vaccine (Adult) 04/16/2016 Zoster Vaccine Recombinant (Shingrix) 12/07/2019 ,08/05/2019 documented as of this encounter Social History Tobacco Use Types Packs/Day Years Used Date Smoking Tobacco: Never Smokeless Tobacco: Never Comments:Father & sm oked Alcohol Use Standard Drinks/Week Comments Not Currently 0 (1 standard drink = 0.6 oz pure alcohol) Less than once a month, 1/2 glass of white wine PHQ-2 Answer Date Recorded PHQ Adult Total Score 1 01/22/2023 Hunger Vital Sign Answer Date Recorded Within the past 12 months, y ou worried that your food would run out before you got the money to buy more. Never true 01/10/20 Within the past 12 months, t he food you bought just didn't last and you didn't have money to get more. Never true 01/09/2023 Sex and Gender Information Value Date Recorded Sex Assigned at Female 03/05/2019 1:21 PM EDT Gender Identity Female 03/05/2019 1:21 PM EDT Sexual Orientation Straight 04/02/2021 3: 30 PM EDT Job Start Date Occupation Industry Not on file Not on file Not on file Travel History Travel Start Travel End [place] 05/30/2023 06/16/2023 documented as of this encounter Functional Status Functional Status Response Date of Assess ment Are you deaf or do you have serious difficulty h earing? No 02/24/2023 Are you blind or do you have serious difficulty seeing, even when wearing glasses? No 02/24/2023 Do you have serious difficul ty walking or climbing stairs? (5 years old or older) No 02/24/2023 Do you have difficulty dress ing or bathing? (5 years old or older) No 02/24/2023 Because of a physical, menta l, or emotional condition, do you have difficulty doing errands alone such as visiting a doctor s office or shopping? (15 years old or older) No 02/25/20 Cognitive Status Response Date of Assessm ent Because of a physical, menta l, or emotional condition, do you have serious difficulty concentrating, remembering, or making decisions? (5 years old or older) No 02/24/2023 documented as of this encounter Plan of Treatment Upcoming Encounters Date Type Department Care Team (Late st Contact Info) Description 07/17/2023 8:30 AM EST Imaging Radiology [facility] 2nd [facility] [address] 07/24/2023 9:00 AM EST Office Visit [address] [address] Robb Philip, DPT [address] [place] [address] 09/02/2023 2:30 PM EST Office Visit Gastroenterology, [facility] [address] [place] [address] Flaco Gomez CRNP [address] [place] [address] 09/10/2023 4:40 PM EST Office Visit General Internal Medicine [facility] [address] [facility] [place] [address] Nahid Rodgers MD [address] [facility] [place] [address] 09/16/2023 10:30 AM EST Cardiac Studies Cardiology, [facility] [address] [place] [address] [facility] [address] [place] [address] 10/31/2023 2:30 PM EDT Office Visit Endocrinology, [facility] [address] [place] [address] Henna Malhotra MD [address] [place] [address] 01/29/2024 2:00 PM EDT Nurse Only Ancillary [facility] [address] [facility] [place] [address] Im, Nurse Annual Wellness [address] [place], [place] [address] Health Maintenance Due Date Last Done Comments DXA Scan 08/27/2023 08/27/2021, 07/15, 08/11/2017, Additional history exists Depression Screening 01/23/2024 01/22/2023 TSH 04/30/2024 04/30/2023, 01/2023, 05/20/2022, Additional history exists GFR 07/11/2024 07/11/2023, 03/2023, 04/30/2023, Additional history exists Albumin/Creatinine Ratio 02/17/2026 023, 05/20/2022, 02/28/2021, Additional history exists DTaP,Tdap,and Td Vaccines (4 - Td or Tdap) 02/19/2029 02/19/2019, 02/17/2019, 09/16/2008, Additional history exists Pneumococcal Vaccine: 65+ Years Completed 03/05/2016, 01/29/2012, 09/14/2002 Zoster Vaccines Completed 12/07/2019, 07/15, 04/16/2016 Influenza Vaccine (FLU shot) Completed 05/2023, 04/22/2022, 04/03/2021, Additional history exists VITAMIN D LEVEL ONCE IN A LIFETIME-USE SMARTSET# [id number] Completed 04/30/2023, 08/12/2022, 07/22/2022, Additional history exists COVID-19 Vaccine Completed 05/22/2023, , 10/18/2021, Additional history exists GARDASIL-HPV IMMUNIZATION SERIES Aged Out No longer eligible based on patient's age to complete this topic Hepatitis B Aged Out No longer eligi ble based on patient's age to complete this topic MENINGOCOCCAL (MENACTRA/MENVEO) Aged Out No longer eligible based on patient's age to complete this topic documented as of this encounter Medical Devices Implanted Type Area Assistant Gm Of Content & Delivery Device Identifier Shelf Expiration Date Model / Serial / Lot [employer] Mini Quick 2/0 [id number] - [id number] Implanted:Qty: 2 on 12/21/2018 by Marcus Collins MD at OR [facility] [place] Left: Hand JNJ : DEPUY MITEK SURG PROD 08/13/2021 [id number] / / [id number] documented as of this encounter Procedures Procedure Name Priority Date/Time Associated Diagnosis Comments CARDIOLOGY SCANNED RESULT 07/15/2023 documented in this encounter Results * CARDIOLOGY SCANNED RESULT (07/15/2023) 07/15/2023 Donte Chau DO OTHER documented in this encounter Advance Directives Documents on File Type Date Recorded Patient Dye Colorist Formulator Expl anation Power of Pricing Manager 02/20/2021 POWER OF A TTORNEY Latest Code Status on File Code Status Date Activated Date Inactivated Comments Full Code 02/24/2023 10:27 AM 02/25/2023 3:07 PM This order reflects the patients wishes and were consensually agreed upon. Question Answer Comments Discussion of Advance Directives occurred with: Not Discussed due to patient's condition Code Status History Code Status Date Activated Date Inactivated Comments Full Code 12/21/2018 9:23 AM 12/21/2018 4:19 PM This order reflects the patients wishes and were consensually agreed upon. Full Code 09/07/2017 5:37 PM 09/10/2017 5:41 PM This order reflects the patients wishes and were consensually agreed upon. Full Code 02/22/2017 7:48 PM 02/26/2017 12:47 AM This order reflects the patients wishes and were consensually agreed upon. Question Answer Comments Discussion of Advance Directives occurred with: Patient Does the patient have a Living Will? No Does the patient have Health Care Power of Pricing Manager? No Full Code 12/02/2016 9:50 PM 12/03/2016 2:50 PM This order reflects the patients wishes and were consensually agreed upon. Question Answer Comments Discussion of Advance Directives occurred with: Patient Does the patient have a Living Will? Yes, not currently available Does the patient have Health Care Power of Pricing Manager? Yes, not currently available Care Teams Therapy Site Coordinator Relationship Specialty Start Date End Date Nahid Rodgers MD [address] [facility] [place] [address] PCP - General Internal Medicine 07/28/19 documented as of this encounter
--- OUTSIDE RECORDS SUMMARY | 2023-07-22 20:18 | External Medical Summary ---
Author Name Unknown Address Unknown Organization [id number]:[facility] [place] [address] [facility] [address] Laboratory Report Ordering Provider Test Date Status EUSEBIO GAY 07/11/2023 12:07:47 Final Observation Date Value Abnormality Reference (Units ) Status SARS Coronavirus 2 07/11/2023 12:07:47 Negative N egative Final No SARS-CoV2 Coronavirus RNA detected by PCR (amplified probe).
This express test was developed and its performance characteristics determined by [facility]. It has not been cleared or approved by the U.S. Food and Drug Administration (FDA). FDA does not require this test to go thru premarket FDA review. This test is used for clinical purposes. It should not be regarded as investigational or for research. This laboratory is certified under the Clinical Laboratory Improvement Amendments (CLIA) as qualified to perform high complexity clinical laboratory testing.

This test is a nucleic acid amplification test (NAAT), a reverse transcriptase polymerase chain reaction (RT-PCR) test, or a Centers for Disease Control-acceptable equivalent. The test is performed in a high complexity Clinical Laboratory Improvement Amendments-(CLIA) certified laboratory. The test is acceptable for SARS-CoV-2 diagnosis, surveillance, and travel within the [place] and to most countries. Please check with local testing authorities about requirements before travel.

The validation of bronchial specimens, tracheal aspirates, and sputum for this assay was developed and performance characteristics determined by [facility]. The validation of alternate specimen types has not been cleared or approved by the U.S. Food and Drug Administration (FDA). It has been determined that such clearance is not necessary. Influenza virus A RNA [Prese nce] in Specimen by [facility] with probe detection 07/11/2023 12:07:47 Negative Negative Final No Influenza A RNA detected by PCR (amplified probe) Influenza virus B RNA [Prese nce] in Specimen by [facility] with probe detection 07/11/2023 12:07:47 Negative Negative Final No Influenza B RNA detected by PCR (amplified probe) Respiratory syncytial virus RNA [Identifier] in Specimen by [facility] with probe detection 07/11/2023 12:07:47 Negative Negative Final No Respiratory Syncytial Vir us RNA detected by PCR (amplified probe) Performing Location LABORATORY [address] Shannan Wagner. [facility] [address]
--- OUTSIDE RECORDS SUMMARY | 2023-07-22 20:18 | External Medical Summary | Summary of Care ---
Author Name Unknown Organization [facility] Address [address] [place] [address] Phone [phone] Care Team Providers Care Operation Research Analyst Name Role Phone Nahid Rodgers MD Primary Care Provider + Reason for Visit * Reason Comments Follow Up Great toenails Encounter Details Date Type Department Care Team (Late st Contact Info) Description 06/27/2023 9:20 AM EST Office Visit Podiatry [facility] [address] [place] [address] Katty Carbone, DPLexy [address] [place] [address] Pain in toe of right foot*; Cellulitis of right toe; S/P nail surgery Allergies Active Allergy Reactions Criticality Noted Date Comments Acetylcysteine High 02/14/2022 Other reaction(s): caused chest tightness, PVB and AFib Alendronate Sodium 12/13/2008 Other reaction(s): GI Upset Moxifloxacin Hcl In Nacl 04/01/2016 Hallucinations Black Sweetser Pollen Allergy Skin Test Rash High 10/16/2018 Burning sensation in mouth and throat Capsaicin Hives,Rash 01/08/2011 Cayenne Hives High 02/16/2008 Celecoxib Rash 03/27/2017 Erythromycin Rash 01/22/2015 Food (See Comments) Rash Low 05/20/2016 Walnuts Iodinated Contrast Media Anaphylaxis High 01/22/2015 Anaphylaxis 1988 with cardiac cath [facility], was recently confirmed December 2016 in Allergy Department [facility] Lumiracoxib Diarrhea 01/09/2007 Omeprazole 08/02/2015 Diarrhea, hair loss, abdominal bloating Rivaroxaban High 02/14/2022 Other reaction(s): PERICARDIAL EFFUSION Simvastatin Rash 02/15/2015 Can tolerate Crestor Sulfa Antibiotics Nausea/vomiting 01/22/2015 Warfarin 02/14/2022 Other reaction(s): "NUMBERS WENT TO HIGH" documented as of this encounter (statuses as of 06/27/2023) Medications Medication Sig Dispensed Refills Start Date [...] area. 30 g 5 3 Active Nystatin 217166 UNIT/GM External CreamIndications:Angular cheilitis Apply topically to [...] once daily. 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 0 09/24/2018 History of compression fracture of spine 018 Major depressive disorder wi th single episode, in full remission 04/06/2018 Chronic atrial fibrillation 01/12/2018 S/P AV brayan ablation 12/13/2016 Cardiac pacemaker in situ 12/13/2016 Postoperative hypothyroidism 03/04/2016 Hyperlipidemia Bronchiectasis Osteoarthritis Overview: especially thumbs documented as of this encounter (statuses as of 06/27/2023) Resolved Problems Problem Noted Date Diagnosed Date [...] hernia & schatzki's ring; EGD with dilation 2014 Osteoporosis 07/28/2019 07/28/2019 Pre-diabetes 07/28/2019 01/27/2020 Atelectasis [...] as of this encounter (statuses as of 06/27/2023) Immunizations Name Administration Dates Next Due COVID-19 [...] file Not on file Not on file documented as of this encounter Functional Status [...] No 02/24/2023 documented as of this encounter Progress Notes * Katty Carbone, DPM - 06/27/2023 9:20 AM EST Podiatry Established Note [facility] Name: Catracho Penn : 1940 Date: 06/27/2023 REASON FOR VISIT: ingrown toenail/toe pain follow up SUBJECTIVE: This patient is a 82 year old female who presents today for follow up of persistent pain to the right first toe. She had similar issues on the left but the right seems more bothersome. She had a partial nail avulsion with matrixectomy by Dr. Guillermo on 10/08/18. Since, she has had pain to the borders. Today, she reports that the right lateral nail border is the only one that causes significant persistent pain. This is daily. She notes redness to the area as the day goes on. She soaks her feet with epsom salts and often digs out any thickened skin. She prefers to avoid a procedure if possible and feels better if the nail is grown out. Past Medical History: Diagnosis Date Age-related osteoporosis without current pathological fracture 07/28/2019 Anemia during childhood Asymptomatic bilateral carotid artery stenosis 03/22/2015 Bronchiectasis ([facility]) Chronic atrial fibrillation ([facility]) 01/12/2018 Chronic diastolic congestive heart failure ([facility]) 04/01/2017 Clotting disorder ([facility]) Taking Eliquis Colon polyps 2013, 2017 Complete heart block (HCC) Concussion 12/2014 unwitnessed head injury following a fall COPD, moderate ([facility]) 10/20/2020 Coronary artery disease 1986 Dysphagia Schatzkys ring, hiatal hernia Ectopic atrial tachycardia 2015 Follicular adenoma of thyroid gland GERD (gastroesophageal reflux disease) w/hiatal hernia & schatzki's ring; EGD with dilation 2013 Hernia Hiatal hernia diagnosed 2012 HTN, goal below 140/90 08/03/2021 Hyperlipidemia Hyperparathyroidism (HCC) Hypothyroidism follicular adenoma left lobe removed 1975; on levothyroxine since Kidney disease diagnosed as moderate Kidney disease, chronic, stage III (GFR 30-59 ml/min) ([facility]) 01/24/2020 Per CKD protocol Microscopic hematuria Myalgia 02/13/2019 Osteoarthritis especially thumbs Osteoporosis Pancreas cyst 09/05/2021 Pancreatitis Twice, following gallbladder surgery; corrected Pancreatitis due to biliary obstruction Paroxysmal atrial fibrillation (HCC) chemical cardioversion 09/2014 after running of of atenolol Pericardial effusion 02/22/2017 Pre-diabetes 07/28/2019 Prediabetes 04/23/2021 Restrictive lung disease 07/18/2022 Secondary hyperparathyroidism, non-renal (HCC) 10/20/2020 Severe tricuspid 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 09/24/2018 ALLERGIES: Review of patient's allergies indicates: Allergen Reactions Acetylcysteine Other reaction(s): caused chest tightness, PVB and AFib Black Sweetser Pollen Allergy Skin Test Rash Burning sensation in mouth and throat Cayenne Hives Iodinated Contrast Media Anaphylaxis Anaphylaxis 1987 with cardiac cath [facility], was recently confirmed December 2016 in Allergy Department [facility] Rivaroxaban Other reaction(s): PERICARDIAL EFFUSION Alendronate Sodium Other reaction(s): GI Upset Avelox [Moxifloxacin Hcl In Nacl] Hallucinations Capsaicin Hives and Rash Celebrex [Celecoxib] Rash Erythromycin Rash Lumiracoxib Diarrhea Omeprazole Diarrhea, hair loss, abdominal bloating Simvastatin Rash Can tolerate Crestor Sulfa Antibiotics Nausea/vomiting Warfarin Other reaction(s): "NUMBERS WENT TO HIGH" Food (See Comments) Rash Walnuts REVIEW OF SYSTEMS: N/A FOCUSED PODIATRIC EXAM: Vascular: Pedal pulses palpable including dorsalis pedis and posterior tibial artery at 2/4 bilaterally. Neurologic: Sensation (light touch) intact to the bilateral feet. Musculoskeletal: Pain is reported with palpation of the right first toe, lateral skin fold. Dermatological: The right first toenail appears to impinge into the right toe skin. No significant evidence of nailregrowth. DIAGNOSTIC STUDIES: None ASSESSMENT: ICD-10-CM 1. Pain in toe of right foot M79.674 2. Cellulitis of right toe L03.031 3. S/P nail surgery Z98.890 PLAN: Given reports of pain and redness, I prescribed Silvadene. We discussed her sulfa allergy and she feels she will tolerate the topical fine. She may use this on the area once daily. We also reviewed option of repeat matriexectomy but taking more of this side. I discussed this with her. I explained we could do in the office as she did have her original procedure done in the OR setting. She is to contact this office if she decides to have this done, 40 min procedure slot would be needed. Orders Placed This Encounter Medications Silver sulfADIAZINE 1 % External Cream (Silvadene) Sig: Apply to right great toe once daily. Dispense: 50 g Refill: 2 Follow up: as needed Katty Carbone DPM documented in this encounter Nursing Notes * Payal Franz LPN - 06/27/2023 9:12 AM EST Pt presents for follow up great toenails, edgar R great toenails. Hx of permanent procedure to bilateral first toenails 09/2018. States the lateral border of R great toenail becomes red and 'looks inflamed' by the end of the day. Also will have discomfort at the tip of the L first toe. States she is unsure she is ready for another surgery. Feels best in open toe shoes. documented in this encounter Plan of Treatment Upcoming Encounters Date Type Department Care Team (Late st Contact Info) Description 07/24/2023 9:00 AM EST Office Visit [facility], [address] [address] Robb Philip DPT [address] [place] [address] 09/02/2023 2:30 PM EST Office Visit Gastroenterology, [facility] [address] [place] [address] Flaco Gomez CRNP [address] [place] [address] 09/10/2023 4:40 PM EST Office Visit General Internal Medicine [facility] [address] [facility] [place] [address] Nahid Rodgers MD [address] [facility] [place] [address] 09/16/2023 10:30 AM EST Cardiac Studies Cardiology, [facility] [address] [place] [address] [facility] [address] [place] [address] 10/31/2023 2:30 PM EDT Office Visit Endocrinology, [address] [address] Henna Malhotra MD [address] [facility] [place] [address] 01/29/2024 2:00 PM EDT Nurse Only Ancillary [facility] [place] [address] [facility] [place] [address] Im, Nurse Annual Wellness [facility] [address] [facility] [place] [address] Health Maintenance Due Date Last Done Comments DXA Scan 08/27/2023 08/27/2021, 07/15, 08/11/2017, Additional history exists Depression Screening 01/23/2024 01/22/2023 TSH 04/30/2024 04/30/2023, 0801/2023, 05/20/2022, Additional history exists GFR 06/21/2024 06/21/2023, 04/13, 02/25/2023, Additional history exists Albumin/Creatinine Ratio 02/17/2026 023, 05/20/2022, 02/28/2021, Additional history exists DTaP,Tdap,and Td Vaccines (4 - Td or Tdap) 02/19/2029 02/19/2019, 02/17/2019, 09/16/2008, Additional history exists Pneumococcal Vaccine: 65+ Years Completed 03/05/2016, 01/29/2012, 09/14/2002 Zoster Vaccines Completed 12/07/2019, 07/15, 04/16/2016 Influenza Vaccine (FLU shot) Completed 05/2023, 04/22/2022, 04/03/2021, Additional history exists VITAMIN D LEVEL ONCE IN A LIFETIME-USE SMARTSET# [id number] Completed 04/30/2023, 08/12/2022, 07/22/2022, Additional history exists [...] this encounter Medical Devices Implanted Type Area Electrification Adviser Device Identifier Shelf Expiration Date Model / Serial / Lot [place] Mini Quick 0 [id number] - [id number] Implanted:Qty: 2 on 12/21/2018 [place] [facility] [place] Hand JNJ : DEPUY MITEK SURG PROD 08/13/2021 [id number] / / [id number] documented as of this encounter Visit Diagnoses Diagnosis Pain in toe of right foot- Primary Pain in limb Cellulitis of right toe S/P nail surgery documented in this encounter Advance Directives Documents on File Type Date Recorded 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 No Full Code 12/02/2016 9:50 PM 12/03/2016 2:50 PM This order reflects the patients wishes and were consensually agreed upon. Question Answer Comments Discussion of Advance Directives occurred with: Patient Does the patient have a Living Will? Yes, not currently available Does the patient have Health Care Power of Porcelain Enamel Installer? Yes, not currently available Care Teams Operation Research Analyst Relationship Specialty Start Date End Date Nahid Rodgers MD [address] [place] [address] PCP - General Internal Medicine 07/28/19 documented as of this encounter
--- OUTSIDE RECORDS SUMMARY | 2023-07-22 20:18 | External Medical Summary | Summary of Care ---
Author Name Unknown Organization [facility] Address [address] [place] [address] Phone [phone] Care Team Providers Care Shoder Filler Name Role Phone Nahid Rodgers MD Primary Care Provider + Reason for Referral * Medication Prior Authorization - Pending Review Specialty Diagnoses / Procedures Referred By Gabriela lares Referred To Contact Diagnoses Bilious vomiting with nausea Damian Cornejo PA-C [address] [place] [address] Referral ID Status Reason Start Date Expiration Date V isits Requested Visits Authorized [id number] Pending Review 999 999 * (Within 10 days (routine)) - Authorized Specialty Diagnoses / Procedures Referred By Gabriela lares Referred To Contact Radiology Diagnoses Right upper quadrant abdominal tenderness with rebound tenderness Procedures US ABDOMEN LIMITED Damian Cornejo PA-C [address] [place] [address] Referral ID Status Reason Start Date Expiration Date V isits Requested Visits Authorized [id number] Authorized 07/11/2023 999 999 Reason for Visit * Reason Comments Vomiting Yellow x's 6 days. S dean stopped now nausea. sweating Fatigue Short of Breath Encounter Details Date Type Department Care Team (Late Contact Info) Description 07/11/2023 11:40 AM EST Office Visit General Internal Medicine [facility] [address] [facility] [place], [place] [address] Damian Cornejo PA-C [facility] [place] [address] Right upper quadrant abdominal tenderness with rebound tenderness*; Bilious vomiting with nausea; Shortness of breath Allergies Active Allergy Reactions Criticality Noted Date Comments Acetylcysteine High 02/14/2022 Other reaction(s): caused chest tightness, PVB and AFib Alendronate Sodium 12/13/2008 Other reaction(s): GI Upset Moxifloxacin Hcl In Nacl 04/01/2016 Hallucinations Black Towanda Pollen Allergy Skin Test Rash High 10/16/2018 Burning sensation in mouth and throat Capsaicin Hives,Rash 01/08/2011 Cayenne Hives High 02/16/2008 Celecoxib Rash 03/27/2017 Erythromycin Rash 01/22/2015 Food (See Comments) Rash Low 05/20/2016 Walnuts Iodinated Contrast Media Anaphylaxis High 01/22/2015 Anaphylaxis 1988 with cardiac cath [facility], was recently confirmed December 2016 in Allergy Department [facility] Lumiracoxib Diarrhea 01/09/2007 Omeprazole 08/02/2015 Diarrhea, hair loss, abdominal bloating Rivaroxaban High 02/14/2022 Other reaction(s): PERICARDIAL EFFUSION Simvastatin Rash 02/15/2015 Can tolerate Crestor Sulfa Antibiotics Nausea/vomiting 01/22/2015 Warfarin 02/14/2022 Other reaction(s): "NUMBERS WENT TO HIGH" documented as of this encounter (statuses as of 07/11/2023) Medications Medication Sig Dispensed Refills Start Date End Date Status Ventolin HFA 108 (90 Base) MCG/ACT Inhalation Aerosol Solution INHALE 2 PUFFS BY MOUTH EVERY 6 HOURS NEEDED FOR SHORTNESS OF BREATH OR WHEEZING 0 10/11/19 21 Active Systane 0.4-0.3 % Ophthalmic Gel (Polyethyl Glycol-Propyl Glycol) Use as directed. 0 Active Anoro Ellipta 62.5-25 MCG/INH Inhalation Aerosol Powder Breath Activated Inhale 1 Puff by mouth in the morning. 0 10/16/19 21 Active Restasis 0.05 % Ophthalmic Emulsion (cycloSPORINE) Instill 1 Drop into both eyes in the morning and 1 Drop before bedtime. 0 Active Vitamin D (Cholecalciferol) 25 MCG (1000 UT) Oral Capsule Take 4 Caps by mouth daily. 4 Cap 0 02/20/20 21 Active Ensure Nutrition Shake Oral Liquid Take [...] 0 Active Torsemide 5 MG Oral Tablet (Demadex)Indications:Ch ronic atrial fibrillation (HCC) One tablet as needed daily for swelling and shortness of breath. 34 Tablet 11 02/07/20 22 Active Additional Information Patient taking differently: EVERY OTHER DAY, One tablet as needed daily for swelling and shortness of breath., Reported on 05/20/2022 Denosumab 60 MG/ML Subcutaneous Solution Prefilled Syringe (Prolia) 0 01/30/20 22 Active Rosuvastatin Calcium 5 MG Oral Tablet (Crestor)Indications:Pu re hypercholesterolemia TAKE 1 TABLET BY MOUTH EVERY FRIDAY, FRIDAY, AND FRIDAY 40 Tablet 3 08/06/19 23 Active Metoprolol Tartrate 50 MG Oral Tablet (Lopressor)Indications: Paroxysmal atrial fibrillation (HCC) TAKE 1 TABLET BY MOUTH EVERY MORNING AND TAKE 1/2 TABLET BY MOUTH EVERY EVENING 135 Tablet 3 09/17/19 23 Active Amoxicillin 500 MG Oral Tablet Before dental appointments 0 08/20/19 23 Active Levothyroxine Sodium 100 MCG Oral Tablet (Levoxyl)Indications:Ac quired hypothyroidism TAKE 1 TABLET BY MOUTH EVERY MORNING AT LEAST 30 MINUTES PRIOR TO BREAKFAST OR OTHER MEDICATIONS. 90 Tablet 3 10/18/19 23 Active Eliquis 5 MG Oral Tablet (Apixaban)Indications:C hronic atrial fibrillation (HCC),Paroxysmal atrial fibrillation (HCC) TAKE 1 TABLET BY MOUTH TWO TIMES DAILY 180 Tablet 3 10/25/19 23 Active Hydrocortisone 2.5 % External CreamIndications:Angula r cheilitis Apply topically to affected area 3 times a day. To affected area. 30 g 5 03/08/20 23 Active Nystatin 578024 UNIT/GM External CreamIndications:Angula r cheilitis Apply topically to affected area 2 times a day. To affacted area for two weeks. 15 g 2 03/08/20 Active Famotidine 20 MG Oral Tablet (Pepcid) Take 1 Tablet by mouth 2 times a day as needed for Heartburn. 180 Tablet 1 04/09/20 Active Additional Information Patient taking differently:20 mg OralDaily(AM), Pt unsure about dosage, Reported on 05/07/2023 Sertraline HCl 25 MG Oral Tablet (Zoloft) Take 1 Tablet by mouth in the morning. 90 Tablet 1 06/23/20 Active Losartan Potassium 25 MG Oral Tablet (Cozaar)Indications:HTN , goal below 140/90 Take 1 Tablet by mouth at bedtime. 90 Tablet 2 06/23/20 Active Silver sulfADIAZINE 1 % External Cream (Silvadene) Apply to right great toe once daily. 50 g 2 06/27/20 Active Ondansetron HCl 4 MG Oral TabletIndications:Bilio us vomiting with nausea Take 1 Tablet by mouth every 6 hours as needed for Nausea. 30 Tablet 0 07/11/20 Active Amoxicillin 500 MG Oral Capsule (Amoxil)Indications:Uri nary tract infection with hematuria, site unspecified Take 1 Capsule by mouth in the morning and 1 Capsule before bedtime. Do all this for 10 days. 20 Capsule 0 01/19/20 23 2022 Discontinued documented as of this encounter (statuses as of 07/11/2023) Active Problems Problem Noted Date Diagnosed Date Hiatal hernia 10/10/2022 Renal calculus, left 10/10/2022 Restrictive lung disease 07/18/2022 Status post left knee replacement 10/24/2021 Pancreas cyst 09/05/2021 HTN, goal below 140/90 08/03/2021 Chronic diastolic congestive heart failure 10/20 Chronic fatigue 07/28/2019 Senile osteoporosis 07/28/2019 SWAIN (dyspnea on exertion) 07/28/2019 Hyperparathyroidism, primary 11/23/2018 Low back pain without sciatica 11/23/2018 Severe tricuspid 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 09/24/2018 [employer] current use of anticoagulant therapy 0 09/24/2018 History of compression fracture of spine 018 Major depressive disorder wi th single episode, in full remission 04/06/2018 Chronic atrial fibrillation 01/12/2018 S/P AV brayan ablation 12/13/2016 Cardiac pacemaker in situ 12/13/2016 Postoperative hypothyroidism 03/04/2016 Hyperlipidemia Bronchiectasis Osteoarthritis Overview: especially thumbs documented as of this encounter (statuses as of 07/11/2023) Resolved Problems Problem Noted Date Diagnosed Date [...] as of this encounter (statuses as of 07/11/2023) Immunizations Name Administration Dates Next Due COVID-19 [...] Date Smoking Tobacco: Never Smokeless Tobacco: Never Tobacco Cessation:Counseling Given: Not Answered Comments:Father & smoked Alcohol Use Standard Drinks/Week Comments Not Currently [...] money to buy more. Never true 01/10/20 23 Within the past 12 months, t he [...] on file documented as of this encounter Last Filed Vital Signs Vital Sign Reading Time Taken Comments Blood Pressure 128/78 07/11/2023 11:40 AM EST Pulse 61 07/11/2023 11:40 AM EST Temperature 36.3 C (97.4 F) 07/11/2023 1 1:40 AM EST Respiratory Rate - - Oxygen Saturation 97% 07/11/2023 11: 40 AM EST Inhaled Oxygen Concentration - - Weight 87.4 kg (192 lb 11.2 oz) 023 11:40 AM EST Height 171.5 cm (5' 7.5") 07/11/2023 11 :40 AM EST Body Mass Index 29.74 07/11/2023 11:40 AM EST documented in this encounter Functional Status Functional Status Response [...] as of this encounter Progress Notes * Damian Cornejo PA-C - 07/11/2023 11:41 AM EST Subjective: Catracho Penn is a 82 year old female. Chief Complaint Patient presents with Vomiting Yellow x's 6 days. Since stopped now nausea. sweating Fatigue Short of Breath HPI: 82 y/o female with HLD, bronchiectasis, atrial fibrillation s/p av brayan ablation with pacer, depression, hyperparathyroidism seen today with complaint of nausea with vomiting that started Friday. Sweating and fatigue. No vomiting today. Still nausea. SWAIN. Some diarrhea. Vomiting was bilious. Traveled to [place] middle of May and came home June. Denies fever, no sinus pressure congestion. PMH: Patient Active Problem List Diagnosis Code Hyperlipidemia E78.5 Bronchiectasis ([facility]) J47.9 Osteoarthritis M19.90 Postoperative hypothyroidism E89.0 S/P AV brayan ablation Z98.890 Cardiac pacemaker in situ Z95.0 Chronic atrial fibrillation ([facility]) I48.20 History of compression fracture of spine Z87.81 Major depressive disorder with single episode, in full remission ([facility]) F32.5 Severe tricuspid 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 I07.1 care home current use of anticoagulant therapy Z79.01 Hyperparathyroidism, primary ([facility]) E21.0 Low back pain without sciatica M54.50 Chronic fatigue R53.82 Senile osteoporosis M81.0 SWAIN (dyspnea on exertion) R06.09 Chronic diastolic congestive heart failure ([facility]) I50.32 HTN, goal below 140/90 I10 Pancreas cyst K86.2 Status post left knee replacement Z96.652 Restrictive lung disease J98.4 Hiatal hernia K44.9 Renal calculus, left N20.0 Current Outpatient Medications Medication Sig Dispense Refill Ventolin HFA 108 (90 Base) MCG/ACT Inhalation Aerosol Solution INHALE 2 PUFFS BY MOUTH EVERY 6 HOURS NEEDED FOR SHORTNESS OF BREATH OR WHEEZING Systane 0.4-0.3 % Ophthalmic Gel (Polyethyl Glycol-Propyl Glycol) Use as directed. Anoro Ellipta 62.5-25 MCG/INH Inhalation Aerosol Powder Breath Activated Inhale 1 Puff by mouth in the morning. Restasis 0.05 % Ophthalmic Emulsion (cycloSPORINE) Instill 1 Drop into both eyes in the morning and1 Drop before bedtime. Vitamin D (Cholecalciferol) 25 MCG (1000 UT) Oral Capsule Take 4 Caps by mouth daily. 4 Cap 0 Ensure Nutrition Shake Oral Liquid Take by mouth. Once a day Docusate Sodium 100 MG Oral Capsule Take 1 Capsule by mouth in the morning and 1 Capsule before bedtime. Centrum Silver 50+Women Oral Tablet Take by mouth. Acetaminophen 325 MG Oral Tablet (Tylenol) Take 1 Tablet by mouth every 6 hours as needed. Torsemide 5 MG Oral Tablet (Demadex) One tablet as needed daily for swelling and shortness of breath. (Patient taking differently: every other day. One tablet as needed daily for swelling and shortness of breath.) 34 Tablet 11 Rosuvastatin Calcium 5 MG Oral Tablet (Crestor) TAKE 1 TABLET BY MOUTH EVERY FRIDAY, FRIDAY, ANDFRIDAY 40 Tablet 3 Metoprolol Tartrate 50 MG Oral Tablet (Lopressor) TAKE 1 TABLET BY MOUTH EVERY MORNING AND TAKE 1/2TABLET BY MOUTH EVERY EVENING 135 Tablet 3 Amoxicillin 500 MG Oral Tablet Before dental appointments Levothyroxine Sodium 100 MCG Oral Tablet (Levoxyl) TAKE 1 TABLET BY MOUTH EVERY MORNING AT LEAST 30MINUTES PRIOR TO BREAKFAST OR OTHER MEDICATIONS. 90 Tablet 3 Eliquis 5 MG Oral Tablet (Apixaban) TAKE 1 TABLET BY MOUTH TWO TIMES DAILY 180 Tablet 3 Hydrocortisone 2.5 % External Cream Apply topically to affected area 3 times a day. To affected area. 30 g 5 Nystatin [id number] UNIT/GM External Cream Apply topically to affected area 2 times a day. To affacted area for two weeks. 15 g 2 Famotidine 20 MG Oral Tablet (Pepcid) Take 1 Tablet by mouth 2 times a day as needed for Heartburn.(Patient taking differently: Take 1 Tablet by mouth in the morning. Pt unsure about dosage.) 180 Tablet 1 Sertraline HCl 25 MG Oral Tablet (Zoloft) Take 1 Tablet by mouth in the morning. 90 Tablet 1 Losartan Potassium 25 MG Oral Tablet (Cozaar) Take 1 Tablet by mouth at bedtime. 90 Tablet 2 Silver sulfADIAZINE 1 % External Cream (Silvadene) Apply to right great toe once daily. 50 g 2 Ondansetron HCl 4 MG Oral Tablet Take 1 Tablet by mouth every 6 hours as needed for Nausea. 30 Tablet 0 Denosumab 60 MG/ML Subcutaneous Solution Prefilled Syringe (Prolia) (Patient not taking: Reported on 03/24/2023) No current facility-administered medications for this visit. Review of patient's allergies indicates: Allergen Reactions Acetylcysteine Other reaction(s): caused chest tightness, PVB and AFib Black Towanda Pollen Allergy Skin Test Rash Burning sensation in mouth and throat Cayenne Hives Iodinated Contrast Media Anaphylaxis Anaphylaxis 1987 with cardiac cath [facility], was recently confirmed December 2016 in Allergy Department [facility] Rivaroxaban Other reaction(s): PERICARDIAL EFFUSION Alendronate Sodium Other reaction(s): GI Upset Avelox [Moxifloxacin Hcl In Nacl] Hallucinations Capsaicin Hives and Rash Celebrex [Celecoxib] Rash Erythromycin Rash Lumiracoxib Diarrhea Omeprazole Diarrhea, hair loss, abdominal bloating Simvastatin Rash Can tolerate Crestor Sulfa Antibiotics Nausea/vomiting Warfarin Other reaction(s): "NUMBERS WENT TO HIGH" Food (See Comments) Rash Walnuts All other review of systems reviewed and negative other than mentioned in HPI. Objective: BP 128/78 | Pulse 61 | Temp 36.3 C (97.4 F) | Ht 1.715 m (5' 7.5") | Wt 87.4 kg (192 lb 11.2 oz) | SpO2 97% | BMI 29.74 kg/m | BSA 2.04 m Results for orders placed or performed in visit on 06/21/23 BASIC METABOLIC PANEL Result Value Ref Range BUN 15 6 - 20 mg/dL Creatinine 1.0 0.5 - 1.0 mg/dL Estimated Glomerular Filtration Rate 59 (L) >=60 mL/min Sodium 143 135 - 146 mmol/L Potassium 4.4 3.5 - 5.1 mmol/L Chloride 103 98 - 107 mmol/L CO2 28 22 - 32 mmol/L Anion Gap 12 7 - 15 mmol/L Glucose 132 (H) 70 - 120 mg/dL Calcium 9.9 8.4 - 10.2 mg/dL MAGNESIUM Result Value Ref Range Magnesium 2.6 1.5 - 2.6 mg/dL *Note: Due to a large number of results and/or encounters for the requested time period, some results have not been displayed. A complete set of results can be found in Results Review. Physical Exam Constitutional: General: She is not in acute distress. Appearance: Normal appearance. She is normal weight. She is not ill-appearing or toxic-appearing. HENT: Head: Normocephalic and atraumatic. Right Ear: Tympanic membrane normal. Left Ear: Tympanic membrane normal. Mouth/Throat: Mouth: Mucous membranes are moist. Pharynx: Oropharynx is clear. No oropharyngeal exudate or posterior oropharyngeal erythema. Eyes: Extraocular Movements: Extraocular movements intact. Conjunctiva/sclera: Conjunctivae normal. Pupils: Pupils are equal, round, and reactive to light. Cardiovascular: Rate and Rhythm: Normal rate and regular rhythm. Heart sounds: Normal heart sounds. No murmur heard. No friction rub. No gallop. Pulmonary: Effort: Pulmonary effort is normal. Breath sounds: Normal breath sounds. No wheezing, rhonchi or rales. Abdominal: General: Bowel sounds are normal. There is no distension. Palpations: Abdomen is soft. There is no mass. Tenderness: There is abdominal tenderness (RUQ). There is no guarding or rebound. Neurological: Mental Status: She is alert. ASSESSMENT: Right upper quadrant abdominal tenderness with rebound tenderness (Primary) - CBC WITH WBC DIFFERENTIAL; Future; Expected date: 07/11/2023 - COMPREHENSIVE METABOLIC PANEL; Future; Expected date: 07/11/2023 - US ABDOMEN LIMITED; Future; Expected date: 07/11/2023 - LIPASE; Future; Expected date: 07/11/2023 Would like her to check above for further evaluation of biliary tree and liver. Sounds like had cholecystectomy 20 years ago secondary to choledocholithiasis. Possible bile induced symptoms as well vs viral. If pain worsens with fever and chills, she should proceed to ER for more immediate work up. Overallclinically she is stable. Bilious vomiting with nausea - INFLUENZA A/B RSV SARS-COV2,PCR; Future; Expected date: 07/11/2023 - Ondansetron HCl 4 MG Oral Tablet; Take 1 Tablet by mouth every 6 hours as needed for Nausea. - INFLUENZA A/B RSV SARS-COV2,PCR Shortness of breath - INFLUENZA A/B RSV SARS-COV2,PCR; Future; Expected date: 07/11/2023 - INFLUENZA A/B RSV SARS-COV2,PCR Follow Up: Return if symptoms worsen or fail to improve. Damian Cornejo PA-C documented in this encounter Nursing Notes * Sydnee Huerta LPN - 07/11/2023 11:40 AM EST Chief Complaint Patient presents with Vomiting Yellow x's 6 days. Since stopped now nausea. sweating Fatigue Short of Breath documented in this encounter Plan of Treatment Upcoming Encounters Date Type Department Care Team (Late st Contact Info) Description 07/17/2023 8:30 AM EST Imaging Radiology [facility] [address] [place] [address] 07/24/2023 9:00 AM EST Office Visit [facility], [place] [address] [place] [address] Robb Philip, MICHAELT [facility] [place] [address] 09/02/2023 2:30 PM EST Office Visit Gastroenterology, [facility] [address] [place] [address] Flaco Gomez CRNP [address] [place] [address] 09/10/2023 4:40 PM EST Office Visit General Internal Medicine [facility] [address] [facility] [place] [address] Nahid Rodgers MD [address] [facility] [place] [address] 09/16/2023 10:30 AM EST Cardiac Studies Cardiology, [facility] [address] [place] [address] [facility] [address] [place] [address] 10/31/2023 2:30 PM EDT Office Visit Endocrinology, [address] [address] Henna Malhotra MD [facility] [place] [address] 01/29/2024 2:00 PM EDT Nurse Only Ancillary [facility] [address] [facility] [place] [address] Im, Nurse Annual Wellness [facility] [address] [facility] [place] [address] Pending Results Name Type Priority Associated Diagnoses Date /Time INFLUENZA A/B RSV SARS-COV2,PCR Lab Routine Bilious vomiting with nausea Shortness of breath 07/11/2023 12:07 PM EST LIPASE Lab Routine Right upper quadrant abdominal tenderness with rebound tenderness 07/11/2023 12:18 PM EST Scheduled Orders Name Type Priority Associated Diagnoses Orde r Schedule INFLUENZA A/B RSV SARS-COV2,PCR Lab Routine Bilious vomiting with nausea Shortness of breath Expected: 07/11/2023 (Approximate), Expires: 07/10/2024 US ABDOMEN LIMITED Medical Imaging Routine Right upper quadrant abdominal tenderness with rebound tenderness Expected: 07/11/2023 (Approximate), Expires: 08/11/2024 LIPASE Lab Routine Right upper quadrant abdominal tenderness with rebound tenderness Expected: 07/11/2023 (Approximate), Expires: 07/10/2024 Health Maintenance Due Date Last Done Comments DXA Scan 08/27/2023 08/27/2021, 07/15, 08/11/2017, Additional history exists Depression Screening 01/23/2024 01/22/2023 TSH 04/30/2024 04/30/2023, 08/0 01/2023, 05/20/2022, Additional history exists GFR 07/11/2024 07/11/2023, 12/0 03/2023, 04/30/2023, Additional history exists Albumin/Creatinine Ratio 02/17/2026 023, 05/20/2022, 02/28/2021, Additional history exists DTaP,Tdap,and Td Vaccines (4 - Td or Tdap) 02/19/2029 02/19/2019, 02/17/2019, 09/16/2008, Additional history exists Pneumococcal Vaccine: 65+ Years Completed 03/05/2016, 01/29/2012, 09/14/2002 Zoster Vaccines Completed 12/07/2019, 07/15, 04/16/2016 Influenza Vaccine (FLU shot) Completed 05/2023, 04/22/2022, 04/03/2021, Additional history exists VITAMIN D LEVEL ONCE IN A LIFETIME-USE SMARTSET# [id number] Completed 04/30/2023, 08/12/2022, 07/22/2022, Additional history exists [...] this encounter Medical Devices Implanted Type Area Ball Rolling Machine Operator Device Identifier Shelf Expiration Date Model / Serial / Lot [place] Mini Quick 2/0 [id number] - [id number] Implanted:Qty: 2 on 12/21/2018 by Marcus Collins MD at OR [facility] Left: Hand JNJ : DEPUY MITEK SURG PROD 08/13/2021 [id number] / / [id number] documented as of this encounter Results * COMPREHENSIVE METABOLIC PANEL (07/11/2023 12:18 PM EST) BUN 15 6 - 20 mg/dL 07/11/2023 1:40 PM EST [facility] 56- Creatinine 0.9 0.5 - 1.0 mg/dL 07/11/2023 1:40 PM EST [facility] 56- Estimated Glomerular Filtration Rate 65 >=60 mL/min 07/11/2023 1:40 PM EST [facility] 56- Comment:eGFR is calculated b ased on the CKD-EPI 2020 equation Sodium 139 135 - 146 mmol/L 07/11/2023 1:40 PM EST [facility] 56- Potassium 4.5 3.5 - 5.1 mmol/L 07/11/2023 1:40 PM EST [facility] 56- Chloride 103 98 - 107 mmol/L 07/11/2023 1:40 PM EST [facility] 56- CO2 25 22 - 32 mmol/L 07/11/2023 1:40 PM EST [facility] 56- Anion Gap 11 7 - 15 mmol/L 07/11/2023 1:40 PM EST [facility] 56- Glucose 89 70 - 120 mg/dL 07/11/2023 1:40 PM EST [facility] 56- Albumin 4.2 3.8 - 5.0 g/dL 07/11/2023 1:40 PM EST [facility] 56- AST 20 10 - 35 U/L 07/11/2023 1:40 PM EST [facility] 56- Alkaline Phosphatase 73 35 - 130 U/L 07/11/2023 1:40 PM EST [address] Bilirubin, Total 0.6 <=1.2 mg/dL 07/11/2023 1:40 PM EST [facility] 56 Calcium 9.8 8.4 - 10.2 mg/dL 07/11/2023 1:40 PM [facility] 56- Protein 6.5 6.0 - 8.3 g/dL 07/11/2023 1:40 PM EST [address] ALT 17 10 - 35 U/L 07/11/2023 1:40 PM [facility] 56 Blood Venous blood specimen / Unknown Venipuncture / Unknown 07/11/2023 12:18 PM EST 07/11/2023 12:18 PM EST Damian Cornejo PA-C LAB BLOOD ORDERABL [place] [address] [place], [place] [id number] documented in this encounter Visit Diagnoses Diagnosis Right upper quadrant abdominal tenderness with rebound tenderness- Primary Bilious vomiting with nausea Shortness of breath documented in this encounter Advance Directives Documents on File Type Date Recorded 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 No Full Code 12/02/2016 9:50 PM 12/03/2016 2:50 PM This order reflects the patients wishes and were consensually agreed upon. Question Answer Comments Discussion of Advance Directives occurred with: Patient Does the patient have a Living Will? Yes, not currently available Does the patient have Health Care Power of Golf Club Weigher? Yes, not currently available Care Teams Shoder Filler Relationship Specialty Start Date End Date Nahid Rodgers MD [address] [place] [address] PCP - General Internal Medicine 07/28/19 documented as of this encounter
--- OUTSIDE RECORDS SUMMARY | 2023-07-22 20:18 | External Medical Summary ---
Author Name Unknown Address Unknown Organization [id number] [address] [place] [address] Laboratory Report Ordering Provider Test Date Status EUSEBIO GAY 07/11/2023 13:07:34 Final Observation Date Value Abnormality Reference (Units ) Status SYNC LEUKOCYTES IN BLOOD BY AUTOMATED COUNT 07/11/2023 13:07:34 7.64 4.00-10.80 (K/uL) Final Segs 07/11/2023 13:07:34 73.9 40.0-75.0 (%) Final Lymphs % 07/11/2023 13:07:34 16.9 Below low normal 18.0-42.0 (%) Final Monos 07/11/2023 13:07:34 7.6 1.0-11.0 (%) Final Eosinophils 07/11/2023 13:07:34 1.2 0.0-6.0 (%) Final Basos 07/11/2023 13:07:34 0.4 0.0-2.0 (%) Final Absolute Segs 07/11/2023 13:07:34 5.65 1.80-7.70 (K/uL) Final Lymphs, absolute 07/11/2023 13:07:34 1.29 1.00-4.80 (K/ul) Final Monos, Abs 07/11/2023 13:07:34 0.58 0.00-1.10 (K/uL) Final Eos, Abs 07/11/2023 13:07:34 0.09 0.00-0.70 (K/uL) Final Basos, Abs 07/11/2023 13:07:34 0.03 0.00-0.20 (K/uL) Final [facility] [place] [address]
--- OUTSIDE RECORDS SUMMARY | 2023-07-22 20:18 | External Medical Summary ---
Author Name Unknown Address Unknown Organization [id number]:[facility] [place] [address] [place] [address] Laboratory Report Ordering Provider Test Date Status JODY CONTRERAS 06/21/2023 10:28:00 Final Observation Date Value Abnormality Reference (Units ) Status BUN 06/21/2023 10:28:00 15 6-20 (mg/dL) Final Creatinine 06/21/2023 10:28:00 1.0 0.5-1.0 (mg/dL) Final Glomerular filtration rate/1.73 sq M.predicted [Volume Rate/Area] in Serum, Plasma or Blood by Creatinine-based formula (CKD-EPI) 06/21/2023 10:28:00 59 Below low normal >=60 (mL/min) Final eGFR is calculated based on the CKD-EPI 2020 equation SODIUM 06/21/2023 10:28:00 143 135-146 (m mol/L) Final Potassium 06/21/2023 10:28:00 4.4 3.5-5.1 (m mol/L) Final Cl 06/21/2023 10:28:00 103 98-107 (mm ol/L) Final CO2 06/21/2023 10:28:00 28 22-32 (mmo l/L) Final Anion gap 06/21/2023 10:28:00 12 7-15 (mmol /L) Final Glucose 06/21/2023 10:28:00 132 Above high normal 70 -120 (mg/dL) Final Calcium 06/21/2023 10:28:00 9.9 8.4-10.2 ( mg/dL) Final Performing Location [facility] [address] [place] [address]
--- OUTSIDE RECORDS SUMMARY | 2023-07-22 20:18 | External Medical Summary | Summary of Care ---
Author Name Unknown Organization [facility] Address [address] [address] Phone [phone] Care Team Providers Care Wilderness Guide Name Role Phone Nahid Rodgers MD Primary Care Provider + Encounter Details Date Type Department Care Team (Late st Contact Info) Description 05/28/2023 Patient Reported Data Patient Survey Ortho [facility] Allergies Active Allergy Reactions Criticality Noted Date Comments Acetylcysteine High 02/14/2022 Other reaction(s): caused chest tightness, PVB and AFib Alendronate Sodium 12/13/2008 Other reaction(s): GI Upset Moxifloxacin Hcl In Nacl 04/01/2016 Hallucinations Black Ernul Pollen Allergy Skin Test Rash High 10/16/2018 [...] as of this encounter (statuses as of 05/28/2023) Medications Medication Sig Dispensed Refills Start Date [...] Solution Prefilled Syringe (Prolia) 0 2 Active Losartan Potassium 25 MG Oral Tablet (Cozaar)Indications:HTN, goal below 140/90 TAKE 1 TABLET BY MOUTH AT BEDTIME 90 Tablet 2 3 Active Rosuvastatin Calcium 5 MG Oral Tablet [...] TIMES DAILY 180 Tablet 3 3 Active Sertraline HCl 25 MG Oral Tablet (Zoloft) Take 1 Tablet by mouth in the morning. 90 Tablet 1 3 Active Hydrocortisone 2.5 % External CreamIndications:Angular cheilitis Apply topically to affected area 3 times a day. To affected area. 30 g 5 3 Active Nystatin 632449 UNIT/GM External CreamIndications:Angular cheilitis Apply topically to affected area 2 times a day. To affacted area for two weeks. 15 g 2 3 Active Famotidine 20 MG Oral Tablet (Pepcid) Take 1 Tablet by mouth 2 times a day as needed for Heartburn. 180 Tablet 1 3 Active Additional Information Patient taking differently:20 mg OralDaily(AM), Pt unsure about dosage, Reported on 05/07/2023 documented as of this encounter (statuses as of 05/28/2023) Active Problems Problem Noted Date Diagnosed Date Hiatal hernia 10/10/2022 Renal calculus, left 10/10/2022 Restrictive lung disease 07/18/2022 Status post left knee replacement 10/24/2021 Pancreas cyst 09/05/2021 HTN, goal below 140/90 08/03/2021 Chronic diastolic congestive heart failure 10/20 Chronic fatigue 07/28/2019 Senile osteoporosis 07/28/2019 SWAIN (dyspnea on exertion) 07/28/2019 Hyperparathyroidism, primary 11/23/2018 Low back pain without sciatica 11/23/2018 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 09/24/2018 History of compression fracture of spine 018 Major depressive disorder wi th single episode, in full remission 04/06/2018 Chronic atrial fibrillation 01/12/2018 S/P AV brayan ablation 12/13/2016 Cardiac pacemaker in situ 12/13/2016 Postoperative hypothyroidism 03/04/2016 Hyperlipidemia Bronchiectasis Osteoarthritis Overview: especially thumbs documented as of this encounter (statuses as of 05/28/2023) Resolved Problems Problem Noted Date Diagnosed Date [...] as of this encounter (statuses as of 05/28/2023) Immunizations Name Administration Dates Next Due COVID-19 mRNA, LNP-s, No Pre serve, 2-Dose Series (Moderna) 09/15/2020,08/11/2020 COVID-19 mRNA, LNP-s, PF, 18 + or 6-11Yrs (Moderna) 08/14/2020,07/14/2020 COVID-19, mRNA, LNP-s, PF, B ooster, 100mcg/0.5mg (Moderna) 10/18/2021,05/06/2021 Covid-19, Mrna, Lnp-s, Pf, B ivalent, 50 Mcg, IM, 12 yrs and above (Moderna) 04/10/2022 DTP Vaccine 02/19/2019 H1N1 2009 Influenza, IM 07/19/2009 Pneumococcal Conjugate Vacc, 13 Valent (Prevnar) 03/05/2016 Pneumococcal Polysaccharide PPV23 (Pneumovax) 01/29/2012,09/14/2002 Rsv Vac., Recomb, Adjuvant, Pf,0.5 Ml (Arexvy) 04/02/2023 SEASONAL INFLUENZA, PF, 6 M & Above, IM , (FLULAVAL or FLUZONE) 05/22/2017 Seasonal Influenza Virus Vac cine, Unspecified Formulation 04/28/2019 Seasonal Influenza, Quadriva lent Hd (Fluzone Hd) [...] Care Team (Late st Contact Info) Description 06/25/2023 11:40 AM EST Office Visit Podiatry [facility] [address] [facility] [place] [address] Katty Carbone DPM [address] [place] [address] 07/24/2023 9:00 AM EST Office Visit [facility] [address] [place] [address] Robb Philip DPT [address] [place] [address] 09/02/2023 2:30 PM EST Office Visit Gastroenterology, [facility] 132 [facility] [place] [address] Flaco Gomez CRNP [address] [facility] [place] [address] 09/10/2023 4:40 PM EST Office Visit General Internal Medicine [facility] [address] [facility] [place] [address] Nahid Rodgers MD [address] [facility] [address] [place], [place] [address] 09/16/2023 10:30 AM EST Cardiac Studies Cardiology, [facility] [address] [facility] [place] [address] Movdarryl Pacer [facility] 132 [facility] [place] [address] 10/31/2023 2:30 PM EDT Office Visit Endocrinology, [place] [address] [place] [address] Henna Malhotra MD [address] [place] [address] 01/29/2024 2:00 PM EDT Nurse Only Ancillary [facility] [place] [address] [facility] [place], [place] [address] Im, Nurse Annual Wellness [facility] [address] [facility] [place] [address] Health Maintenance Due Date Last Done Comments COVID-19 Vaccine (2022- season) 2023 04/10/2022, 10/18/2021, 05/06/2021, Additional history exists DXA Scan 08/27/2023 08/27/2021, 07/15, 08/11/2017, Additional history exists Depression Screening 01/23/2024 01/22/2023 GFR 04/30/2024 04/30/2023, 02/11, 02/17/2023, Additional history exists TSH 04/30/2024 04/30/2023, 08/0 01/2023, 05/20/2022, Additional history exists Albumin/Creatinine Ratio 02/17/2026 023, 05/20/2022, 02/28/2021, Additional history exists DTaP,Tdap,and Td Vaccines (4 - Td or Tdap) 02/19/2029 02/19/2019, 02/17/2019, 09/16/2008, Additional history exists Pneumococcal Vaccine: 65+ Years Completed 03/05/2016, 01/29/2012, 09/14/2002 Zoster Vaccines Completed 12/07/2019, 07/15, 04/16/2016 Influenza Vaccine (FLU shot) Completed 05/2023, 04/22/2022, 04/03/2021, Additional history exists VITAMIN D LEVEL ONCE IN A LIFETIME-USE SMARTSET# 73468 Completed 04/30/2023, 08/12/2022, 07/22/2022, Additional history exists GARDASIL-HPV IMMUNIZATION SERIES Aged Out No longer eligible based on patient's age to complete this topic Hepatitis B Aged Out No longer eligi ble based on patient's age to complete this topic MENINGOCOCCAL (MENACTRA/MENVEO) Aged Out No longer eligible based on patient's age to complete this topic documented as of this encounter Medical Devices Implanted Type Area Gym Supervisor Device Identifier Shelf Expiration Date Model / Serial / Lot Vance Mini Quick 2/0 [id number] - [id number] Implanted:Qty: 2 on 12/21/2018 by Marcus Collins MD at OR [facility] – [place] Left: Hand JNJ : DEPUY MITEK SURG PROD 08/13/2021 [id number] / / [id number] documented as of this encounter Advance Directives Documents on File Type Date Recorded Patient Splitter Head Expl anation Power of Page Makeup System Operator 02/20/2021 POWER OF A TTORNEY Latest Code [...] the patient have Health Care Power of Page Makeup System Operator? No Full Code 12/02/2016 9:50 PM 12/03/2016 2:50 PM This order reflects the patients wishes and were consensually agreed upon. Question Answer Comments Discussion of Advance Directives occurred with: Patient Does the patient have a Living Will? Yes, not currently available Does the patient have Health Care Power of Page Makeup System Operator? Yes, not currently available Care Teams Wilderness Guide Relationship Specialty Start Date End Date Nahid Rodgers MD [address] [place] [address] PCP - General Internal Medicine 07/28/19 documented as of this encounter
--- OUTSIDE RECORDS SUMMARY | 2023-07-22 20:18 | External Medical Summary ---
Author Name Unknown Address Unknown Organization [id number]:[facility] [address] - [address] [place] [address] Laboratory Report Ordering Provider Test Date Status EUSEBIO GAY 07/11/2023 13:07:34 Final Observation Date Value Abnormality Reference (Units ) Status WBC, Total 07/11/2023 13:07:34 7.64 4.00-10.8 0 (K/uL) Final RBC 07/11/2023 13:07:34 4.96 3.85-5.15 (M/uL) Final Hemoglobin 07/11/2023 13:07:34 15.1 12.0-15.3 (g/dL) Final HCT 07/11/2023 13:07:34 46.8 Above high normal 36 .0-45.2 (%) Final MCV 07/11/2023 13:07:34 94.4 81.5-97.5 (fL) Final MCH 07/11/2023 13:07:34 30.4 27.0-34.0 (pg) Final MCHC 07/11/2023 13:07:34 32.3 32.0-36.0 (g/dL) Final RDW 07/11/2023 13:07:34 15.1 11.5-15.5 (%) Final Platelets 07/11/2023 13:07:34 172 140-400 (K /uL) Final MPV 07/11/2023 13:07:34 9.8 6.6-11.1 ( fL) Final Performing Location [facility]ATORY [facility] [address] [place] [address]
--- OUTSIDE RECORDS SUMMARY | 2023-07-22 20:18 | External Medical Summary ---
Author Name Unknown Address Unknown Organization K09:[facility] [place] [address] [place] [address] Laboratory Report Ordering Provider Test Date Status EUSEBIO GAY 07/11/2023 12:18:05 Final Observation Date Value Abnormality Reference (Units ) Status BUN 07/11/2023 12:18:05 15 6-20 (mg/dL) Final Creatinine 07/11/2023 12:18:05 0.9 0.5-1.0 (mg/dL) Final Glomerular filtration rate/1.73 sq M.predicted [Volume Rate/Area] in Serum, Plasma or Blood by Creatinine-based formula (CKD-EPI) 07/11/2023 12:18:05 65 >=60 (mL/min) Final eGFR is calculated based on the CKD-EPI 2020 equation SODIUM 07/11/2023 12:18:05 139 135-146 (m mol/L) Final Potassium 07/11/2023 12:18:05 4.5 3.5-5.1 (m mol/L) Final Cl 07/11/2023 12:18:05 103 98-107 (mm ol/L) Final CO2 07/11/2023 12:18:05 25 22-32 (mmo l/L) Final Anion gap 07/11/2023 12:18:05 11 7-15 (mmol /L) Final Glucose 07/11/2023 12:18:05 89 70-120 (mg /dL) Final Albumin 07/11/2023 12:18:05 4.2 3.8-5.0 (g /dL) Final AST (Aspartate aminotransferase) 07/11/2023 12:18:05 20 10-35 (U/L) Final Alk Phos 07/11/2023 12:18:05 73 35-130 (U/ L) Final Bilirubin, Total 07/11/2023 12:18:05 0.6 <=1 .2 (mg/dL) Final Calcium 07/11/2023 12:18:05 9.8 8.4-10.2 ( mg/dL) Final Protein 07/11/2023 12:18:05 6.5 6.0-8.3 (g /dL) Final ALT (Alanine aminotransferase) 07/11/2023 12:18:05 17 10-35 (U/L) Final Performing Location [facility] [place] [address] [place] [address]
--- OUTSIDE RECORDS SUMMARY | 2023-07-22 20:18 | External Medical Summary ---
Author Name Unknown Address Unknown Organization K01:[facility] [place] [address] [facility] [address] [place] [address] Laboratory Report Ordering Provider Test Date Status EUSEBIO GAY 07/11/2023 12:18:05 Final Observation Date Value Abnormality Reference (Units ) Status Lipase 07/11/2023 12:18:05 30 13-60 (U/L ) Final Performing Location [facility] - [address] [place] [address]
--- OUTSIDE RECORDS SUMMARY | 2023-07-22 20:18 | External Medical Summary | Summary of Care ---
Author Name Unknown Organization [facility] Address [address] [address] Phone [phone] Care Team Providers Care Pamphlet Distributor Name Role Phone Nahid Rodgers MD Primary Care Provider + Encounter Details Date Type Department Care Team (Late st Contact Info) Description 05/28/2023 Patient Reported Data Patient Survey Ortho [facility] Allergies Active Allergy Reactions Criticality Noted Date Comments Acetylcysteine High 02/14/2022 Other reaction(s): caused chest tightness, PVB and AFib Alendronate Sodium 12/13/2008 Other reaction(s): GI Upset Moxifloxacin Hcl In Nacl 04/01/2016 Hallucinations Black Archbald Pollen Allergy Skin Test Rash High 10/16/2018 [...] area. 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 [...] 06/25/2023 11:40 AM EST Office Visit Podiatry [facility] [address] [facility] [place] [address] Katty Carbone DPM [address] [place] [address] 07/24/2023 9:00 AM EST Office Visit [facility] [address] [place] [address] Robb Philip DPT [address] [place] [address] 09/02/2023 2:30 PM EST Office Visit Gastroenterology, [facility] 132 [facility] [place] [address] Flaco Gomez CRNP [address] [facility] [place] [address] 09/10/2023 4:40 PM EST Office Visit General Internal Medicine [facility] [address] [place] [address] Nahid Rodgers MD [address] [facility] [address] [place], [place] [address] 09/16/2023 10:30 AM EST Cardiac Studies Cardiology, [facility] [address] [facility] [place] [address] Movdarryl Pacer [facility] [address] [place] [address] 10/31/2023 2:30 PM EDT Office Visit Endocrinology, [place] [address] [place] [address] Henna Malhotra MD [address] [place] [address] 01/29/2024 2:00 PM EDT Nurse Only Ancillary [facility] [place] [address] [facility] [place], [place] [address] Im, Nurse Annual Wellness [facility] [address] [place] [address] Health Maintenance Due Date Last Done Comments [...] D LEVEL ONCE IN A LIFETIME-USE SMARTSET# [id number] Completed 04/30/2023, 08/12/2022, 07/22/2022, Additional history exists [...] this encounter Medical Devices Implanted Type Area First Line Supervisor Device Identifier Shelf Expiration Date Model / Serial / Lot [place] Mini Quick 2/0 [id number] - [id number] Implanted:Qty: 2 on 12/21/2018 by Marcus Collins MD at OR [facility] [place] Left: Hand JNJ : DEPUY MITEK SURG PROD 08/13/2021 [id number] / / [id number] documented as of this encounter Advance Directives Documents on File Type Date Recorded Patient Leather Lacer Expl anation Power of Home Fire Alarm Installer 02/20/2021 POWER OF A TTORNEY Latest [...] the patient have Health Care Power of Home Fire Alarm Installer? No Full Code 12/02/2016 9:50 PM 12/03/2016 2:50 PM This order reflects the patients wishes and were consensually agreed upon. Question Answer Comments Discussion of Advance Directives occurred with: Patient Does the patient have a Living Will? Yes, not currently available Does the patient have Health Care Power of Home Fire Alarm Installer? Yes, not currently available Care Teams Pamphlet Distributor Relationship Specialty Start Date End Date Nahid Rodgers MD [address] [place] [address] PCP - General Internal Medicine 07/28/19 documented as of this encounter
--- OUTSIDE RECORDS SUMMARY | 2023-07-22 20:18 | External Medical Summary ---
Author Name Unknown Address Unknown Organization K01:[facility] - [address] [place] [address] Laboratory Report Ordering Provider Test Date Status BENJODY 06/21/2023 10:28:00 Final Observation Date Value Abnormality Reference (Units ) Status Magnesium 06/21/2023 10:28:00 2.6 1.5-2.6 (m g/dL) Final Performing Location [facility] - [address] [place] [address]
--- OUTSIDE RECORDS SUMMARY | 2023-07-22 20:18 | External Medical Summary | Summary of Care ---
Author Name Unknown Organization [facility] Address [address] [place] [address] Phone [phone] Care Team Providers Care Tool Room Gear Machine Operator Name Role Phone Nahid Xiao MD Primary Care Provider + Reason for Visit * Reason Onset Date Comments Medication Refill 06/23/2023 Encounter Details Date Type Department Care Team (Late st Contact Info) Description 06/23/2023 Refill General Internal Medicine [facility] [address] [facility] [place] [address] Nahid Xiao MD [address] [place] [address] HTN, goal below 140/90 Allergies Active Allergy Reactions Criticality Noted Date Comments Acetylcysteine High 02/14/2022 Other reaction(s): caused chest tightness, PVB and AFib Alendronate Sodium 12/13/2008 Other reaction(s): GI Upset Moxifloxacin Hcl In Nacl 04/01/2016 Hallucinations [place] Pollen Allergy Skin Test Rash High 10/16/2018 [...] as of this encounter (statuses as of 06/23/2023) Medications Medication Sig Dispensed Refills Start Date [...] 23 Active Eliquis 5 MG Oral Tablet (Apixaban)Indications:Ch ronic atrial fibrillation (HCC),Paroxysmal atrial fibrillation (HCC) TAKE 1 TABLET BY MOUTH TWO TIMES DAILY 180 Tablet 3 10/25/19 23 Active Hydrocortisone 2.5 % External CreamIndications:Angular cheilitis Apply topically to affected area 3 times a day. To affected area. 30 g 5 03/08/20 23 Active Nystatin 894781 UNIT/GM External CreamIndications:Angular cheilitis Apply topically to affected area 2 times a day. To affacted area for two weeks. 15 g 2 03/08/20 23 Active Famotidine 20 MG Oral Tablet (Pepcid) Take 1 Tablet by mouth 2 times a day as needed for Heartburn. 180 Tablet 1 04/09/20 23 Active Additional Information Patient taking differently:20 mg OralDaily(AM), Pt unsure about dosage, Reported on 05/07/2023 Sertraline HCl 25 MG Oral Tablet (Zoloft) Take 1 Tablet by mouth in the morning. 90 Tablet 1 06/23/20 23 Active Losartan Potassium 25 MG Oral Tablet (Cozaar)Indications:HTN, goal below 140/90 Take 1 Tablet by mouth at bedtime. 90 Tablet 2 06/23/20 23 Active Losartan Potassium 25 MG Oral Tablet (Cozaar)Indications:HTN, goal below 140/90 TAKE 1 TABLET BY MOUTH AT BEDTIME 90 Tablet 2 07/18/19 23 023 Discontin ued(Refil l) Sertraline HCl 25 MG Oral Tablet (Zoloft) Take 1 Tablet by mouth in the morning. 90 Tablet 1 10/26/19 23 023 Discontin ued(Refil l) documented as of this encounter (statuses as of 06/23/2023) Active Problems Problem Noted Date Diagnosed Date Hiatal hernia 10/10/2022 Renal calculus, left 10/10/2022 Restrictive lung disease 07/18/2022 Status post left knee replacement 10/24/2021 Pancreas cyst 09/05/2021 HTN, goal below 140/90 08/03/2021 Chronic diastolic congestive heart failure 10/20 Chronic fatigue 07/28/2019 Senile osteoporosis 07/28/2019 SWAIN (dyspnea on exertion) 07/28/2019 Hyperparathyroidism, primary 11/23/2018 Low back pain without sciatica 11/23/2018 Severe tricuspid 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 09/24/2018 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 0 09/24/2018 History of compression fracture of spine 018 Major depressive disorder wi th single episode, in full remission 04/06/2018 Chronic atrial fibrillation 01/12/2018 S/P AV brayan ablation 12/13/2016 Cardiac pacemaker in situ 12/13/2016 Postoperative hypothyroidism 03/04/2016 Hyperlipidemia Bronchiectasis Osteoarthritis Overview: especially thumbs documented as of this encounter (statuses as of 06/23/2023) Resolved Problems Problem Noted Date Diagnosed Date Resolved Date Hyperparathyroidism 07/18/2022 02/18/20 Stage 3a chronic kidney disease 07/18/2022 07/25/2022 [...] as of this encounter (statuses as of 06/23/2023) Immunizations Name Administration Dates Next Due COVID-19 [...] No 02/24/2023 documented as of this encounter Miscellaneous Notes * Telephone Encounter - Nahid Xiao MD - 06/23/2023 3:27 PM ESTSigned Prescriptions: Disp Refills Sertraline HCl 25 MG Oral Tablet (Zoloft) 90 Tab*1 Sig: Take 1 Tablet by mouth in the morning.Authorizing Provider: NAHID XIAO Losartan Potassium 25 MG Oral Tablet (Coza*90 Tab*2 Sig: Take 1 Tablet by mouth at bedtime.Authorizing Provider: NAHID XIAO * Telephone Encounter - Nahid Xiao MD - 06/23/2023 3:27 PM ESTSigned Prescriptions: Disp Refills Sertraline HCl 25 MG Oral Tablet (Zoloft) 90 Tab*1 Sig: Take 1 Tablet by mouth in the morning. Authorizing Provider: NAHID XIAO Losartan Potassium 25 MG Oral Tablet (Coza*90 Tab*2 Sig: Take 1 Tablet by mouth at bedtime. Authorizing Provider: NAHID XIAO ---- * Telephone Encounter - Sydnee Huerta LPN - 06/23/2023 2:50 PM EST Pending Prescriptions: Disp Refills Sertraline HCl 25 MG Oral Tablet (Zoloft) 90 Tab*1 Sig: Take 1 Tablet by mouth in the morning. Losartan Potassium 25 MG Oral Tablet (Coza*90 Tab*2 Sig: Take 1 Tablet by mouth at bedtime. * Telephone Encounter - Sydnee Huerta LPN - 06/23/2023 2:41 PM EST Pending Prescriptions: Disp Refills Sertraline HCl 25 MG Oral Tablet (Zoloft) 90 Tab*1 Sig: Take 1 Tablet by mouth in the morning. * Telephone Encounter - Graham Carlos OSA - 06/23/2023 2:37 PM EST 90 Day Prescription Request Did you pend patient's preferred pharmacy and medication before forwarding?yes Pharmacy: [facility] [id number] [place] Pending Prescriptions: Disp Refills Sertraline HCl 25 MG Oral Tablet (Zoloft) 90 Tab*1 Sig: Take 1 Tablet by mouth in the morning. Losartan Potassium 25 MG Oral Tablet (Coz*90 Tab*2 Sig: Take 1 Tablet by mouth at bedtime. Last Visit: 05/07/2023 (in office), Visit date not found (telemedicine) Next Visit: 09/10/2023 If no future appointments scheduled, and last appointment is greater than a year ago, please schedule patient for a follow-up appointment Last date the medication was ordered: 10/25/2022, 07/18/2022 Is this request for a controlled substance?No Urine Drug Screen:No results found. However, due to the size of the patient record, not all encounters were searched. Please check Results Review for a complete set of results. Patient Phone Numbers Labs: Lab Results Component Value Date/Time CREAT 1.0 06/21/2023 10:28 AM CREAT 0.9 02/18/2020 08:55 AM POTASSIUM 4.4 06/21/2023 10:28 AM POTASSIUM 4.8 02/18/2020 08:55 AM TSH 1.50 04/30/2023 12:53 PM TSH 0.70 07/28/2019 11:27 AM LDLCALC 82 07/22/2022 09:37 AM LDLCALC 54 02/18/2020 08:55 AM LDLDIRECT NOT APPLICABLE 02/18/2020 08:55 AM ALT 14 04/30/2023 12:53 PM ALT 16 07/28/2019 11:27 AM HGBA1C 6.3 (H) 02/17/2023 11:29 AM HGBA1C 5.9 (H) 02/18/2020 08:55 AM documented in this encounter Plan of Treatment Upcoming Encounters Date Type Department Care Team (Late st Contact Info) Description 06/25/2023 11:40 AM EST Office Visit Podiatry [facility] [address] [place] [address] Katty Carbone, DPM [address] [place] [address] 07/24/2023 9:00 AM EST Office Visit [facility] [address] [place] [address] Robb Philip DPT [address] [place] [address] 09/02/2023 2:30 PM EST Office Visit Gastroenterology, [facility] [address] [place] [address] Flaco Gomez CRNP 132 [place] [address] 09/10/2023 4:40 PM EST Office Visit General Internal Medicine [facility] [address] [facility] [place] [address] Nahid Xiao MD [address] [facility] [place] [address] 09/16/2023 10:30 AM EST Cardiac Studies Cardiology, [facility] 132 [facility] [place] [address] [facility] [address] [place] [address] 10/31/2023 2:30 PM EDT Office Visit Endocrinology, [place] [address] [place] [address] Henna Malhotra MD [address], [place] [id number] 01/29/2024 2:00 PM EDT Nurse Only Ancillary [facility] [address] [facility] [place] [address] Im, Nurse Annual Wellness [facility] [address] [place] [address] Health Maintenance Due Date Last Done Comments [...] D LEVEL ONCE IN A LIFETIME-USE SMARTSET# [id number] Completed 04/30/2023, 08/12/2022, 07/22/2022, Additional history exists [...] this encounter Medical Devices Implanted Type Area Welt Stitch Cleaner Device Identifier Shelf Expiration Date Model / Serial / Lot [place] Mini Quick 2/0 [id number] - [id number] Implanted:Qty: 2 on 12/21/2018 by Marcus Collins MD at OR [facility] Left: Hand JNJ : DEPUY MITEK SURG PROD 08/13/2021 [id number] / / [id number] documented as of this encounter Visit Diagnoses Diagnosis HTN, goal below 140/90 Unspecified essential hypertension documented in this encounter Advance Directives Documents on File Type Date Recorded Patient Pig Machine Operator Helper Expl anation Power of Salesperson Hosiery 02/20/2021 POWER OF A TTORNEY Latest Code [...] the patient have Health Care Power of Salesperson Hosiery? No Full Code 12/02/2016 9:50 PM 12/03/2016 2:50 PM This order reflects the patients wishes and were consensually agreed upon. Question Answer Comments Discussion of Advance Directives occurred with: Patient Does the patient have a Living Will? Yes, not currently available Does the patient have Health Care Power of Salesperson Hosiery? Yes, not currently available Care Teams Tool Room Gear Machine Operator Relationship Specialty Start Date End Date Nahid Xaio MD [address] [place] [address] PCP - General Internal Medicine 07/28/19 documented as of this encounter
--- OUTSIDE RECORDS SUMMARY | 2023-07-22 20:18 | External Medical Summary | Summary of Care ---
Author Name Unknown Organization [facility] Address [address] [place] [address] Phone [phone] Care Team Providers Care Legislative Advocate Name Role Phone Nahid Rodgers MD Primary Care Provider + Reason for Visit * Reason Comments Outpatient Testing Encounter Details Date Type Department Care Team (Late st Contact Info) Description 06/21/2023 10:40 AM EST Laboratory Laboratory, [facility] [address] [place] [id number] [facility] [address] [place] [address] History of hyperparathyroidism; Muscle cramping Allergies Active Allergy Reactions Criticality Noted Date Comments Acetylcysteine High 02/14/2022 Other reaction(s): caused chest tightness, PVB and AFib Alendronate Sodium 12/13/2008 Other reaction(s): GI Upset Moxifloxacin Hcl In Nacl 04/01/2016 Hallucinations [place] Pollen Allergy Skin Test Rash High 10/16/2018 [...] as of this encounter (statuses as of 06/21/2023) Medications Medication Sig Dispensed Refills Start Date [...] area. 30 g 5 3 Active Nystatin 602473 UNIT/GM External CreamIndications:Angular cheilitis Apply topically to [...] as of this encounter (statuses as of 06/21/2023) Active Problems Problem Noted Date Diagnosed Date Hiatal hernia 10/10/2022 Renal calculus, left 10/10/2022 Restrictive lung disease 07/18/2022 Status post left knee replacement 10/24/2021 Pancreas cyst 09/05/2021 HTN, goal below 140/90 08/03/2021 Chronic diastolic congestive heart failure 10/20 Chronic fatigue 07/28/2019 Senile osteoporosis 07/28/2019 SWAIN (dyspnea on exertion) 07/28/2019 Hyperparathyroidism, primary 11/23/2018 Low back pain without sciatica 11/23/2018 Severe tricuspid 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 09/24/2018 snf current use of anticoagulant therapy 0 09/24/2018 History of compression fracture of spine 018 Major depressive disorder wi th single episode, in full remission 04/06/2018 Chronic atrial fibrillation 01/12/2018 S/P AV brayan ablation 12/13/2016 Cardiac pacemaker in situ 12/13/2016 Postoperative hypothyroidism 03/04/2016 Hyperlipidemia Bronchiectasis Osteoarthritis Overview: especially thumbs documented as of this encounter (statuses as of 06/21/2023) Resolved Problems Problem Noted Date Diagnosed Date [...] as of this encounter (statuses as of 06/21/2023) Immunizations Name Administration Dates Next Due COVID-19 [...] 06/25/2023 11:40 AM EST Office Visit Podiat[facility] [address] Katty Carbone, DPLexy [address] [place] [address] 07/24/2023 9:00 AM EST Office Visit [facility] [address] [place] [address] Robb Philip DPT [address] [place] [address] 09/02/2023 2:30 PM EST Office Visit Gastroenterology, [facility] 132 [facility] [place] [address] Flaco Gomez CRNP 132 [facility] [place] [address] 09/10/2023 4:40 PM EST Office Visit General Internal Medicine [facility] 200 [facility] [place] [address] Nahid Rodgers MD 200 [facility] [place] [address] 09/16/2023 10:30 AM EST Cardiac Studies Cardiology, [facility] 132 [facility] [place] [address] [place], [facility] 132 [facility] [place] [address] 10/31/2023 2:30 PM EDT Office Visit Endocrinology, [place] [address] [place] [address] Henna Malhotra MD [address] [place], [place] [id number] 01/29/2024 2:00 PM EDT Nurse Only Ancillary [facility] [address] [facility] [place] [address] Im, Nurse Annual Wellness [address] [place] [address] Pending Results Name Type Priority Associated Diagnoses Date /Time BASIC METABOLIC PANEL Lab Routine History of hyperparathyroidism Muscle cramping 06/21/2023 10:28 AM EST MAGNESIUM Lab Routine History of hyperparathyroidism Muscle cramping 06/21/2023 10:28 AM EST Health Maintenance Due Date Last Done Comments COVID-19 Vaccine ( season) 2023 04/10/2022, 10/18/2021, 05/06/2021, Additional history [...] D LEVEL ONCE IN A LIFETIME-USE SMARTSET# [id number] Completed 04/30/2023, 08/12/2022, 07/22/2022, Additional history exists [...] this encounter Medical Devices Implanted Type Area Farmworker Fruit Device Identifier Shelf Expiration Date Model / Serial / Lot [place] Mini Quick 2/0 [id number] - [id number] Implanted:Qty: 2 on 12/21/2018 by Marcus Collins MD at [place] [facility] Left: Hand JNJ : DEPUY MITEK SURG PROD 08/13/2021 [id number] / / [id number] documented as of this encounter Visit Diagnoses Diagnosis History of hyperparathyroidism Personal history of other endocrine, metabolic, and immunity disorders Muscle cramping documented in this encounter Advance Directives Documents on File Type Date Recorded Patient Performance Test Consultant Expl anation Power of Formation Fracturing Operator 02/20/2021 POWER OF A TTORNEY Latest [...] the patient have Health Care Power of Formation Fracturing Operator? No Full Code 12/02/2016 9:50 PM 12/03/2016 2:50 PM This order reflects the patients wishes and were consensually agreed upon. Question Answer Comments Discussion of Advance Directives occurred with: Patient Does the patient have a Living Will? Yes, not currently available Does the patient have Health Care Power of Formation Fracturing Operator? Yes, not currently available Care Teams Legislative Advocate Relationship Specialty Start Date End Date Nahid Rodgers MD [address] [place] [address] PCP - General Internal Medicine 07/28/19 documented as of this encounter
--- OUTSIDE RECORDS SUMMARY | 2023-07-22 20:18 | External Medical Summary | Summary of Care ---
Author Name Unknown Organization [facility] Address [address] [place] [address] Phone [phone] Care Team Providers Care Industrial Engineering Director Name Role Phone Nahid Rodgers MD Primary Care Provider + Reason for Visit * Reason Comments Outpatient Testing Encounter Details Date Type Department Care Team (Late st Contact Info) Description 07/11/2023 12:10 PM EST Laboratory Laboratory [facility] [place] [address] [place] [phone] [place], [facility] [address] [place] [address] Right upper quadrant abdominal tenderness with rebound tenderness Allergies Active Allergy Reactions Criticality Noted Date Comments Acetylcysteine High 02/14/2022 Other reaction(s): caused chest tightness, PVB and AFib Alendronate Sodium 12/13/2008 Other reaction(s): GI Upset Moxifloxacin Hcl In Nacl 04/01/2016 Hallucinations Black [place] Pollen Allergy Skin Test Rash High 10/16/2018 [...] area. 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 0 09/24/2018 [...] Description 07/17/2023 8:30 AM EST Imaging Radiology [facility] [address] [address] 07/24/2023 9:00 AM EST Office Visit [address] [address] Robb Philip, DPT [address] [place] [address] 09/02/2023 2:30 PM EST Office Visit Gastroenterology, [facility] [address] [place] [address] Flaco Gomez CRNP [address] [place] [address] 09/10/2023 4:40 PM EST Office Visit General Internal Medicine [facility] 200 [facility] [place] [address] Nahid Rodgers MD 200 [facility] [place] [address] 09/16/2023 10:30 AM EST Cardiac Studies Cardiology, [facility] [address] [place] [address] [place], [facility] [address] [place] [address] 10/31/2023 2:30 PM EDT Office Visit Endocrinology, [place] [address] [place] [address] Henna Malhotra MD [address] [place] [address] 01/29/2024 2:00 PM EDT Nurse Only Ancillary [facility] 200 [facility] [place] [address] Im, Nurse Annual Wellness [facility] 200 [facility] [place] [address] Pending Results Name Type Priority Associated Diagnoses Date /Time COMPREHENSIVE METABOLIC PANEL Lab Routine Right upper quadrant abdominal tenderness with rebound tenderness 07/11/2023 12:18 PM EST LIPASE Lab Routine Right upper quadrant abdominal tenderness with rebound tenderness 07/11/2023 12:18 PM EST Health Maintenance Due Date Last Done Comments DXA Scan 08/27/2023 08/27/2021, 07/15, 08/11/2017, Additional history exists Depression Screening 01/23/2024 01/22/2023 TSH 04/30/2024 04/30/2023, 08/0 01/2023, 05/20/2022, Additional history exists GFR 06/21/2024 06/21/2023, [...] D LEVEL ONCE IN A LIFETIME-USE SMARTSET# [id number] Completed 04/30/2023, 08/12/2022, 07/22/2022, Additional history exists [...] this encounter Medical Devices Implanted Type Area Titrator Device Identifier Shelf Expiration Date Model / Serial / Lot [place] Mini Quick 2/0 [id number] - [id number] Implanted:Qty: 2 on 12/21/2018 by Marcus Collins MD at [place] [facility] Left: Hand JNJ : DEPUY MITEK SURG PROD 08/13/2021 [id number] / / [id number] documented as of this encounter Visit Diagnoses Diagnosis Right upper quadrant abdominal tenderness with rebound tenderness documented in this encounter Advance Directives Documents on File Type Date Recorded Patient Manager Leadership Development Expl anation Power of Director Of Music Therapy 02/20/2021 POWER OF A TTORNEY Latest Code [...] the patient have Health Care Power of Director Of Music Therapy? No Full Code 12/02/2016 9:50 PM 12/03/2016 2:50 PM This order reflects the patients wishes and were consensually agreed upon. Question Answer Comments Discussion of Advance Directives occurred with: Patient Does the patient have a Living Will? Yes, not currently available Does the patient have Health Care Power of Director Of Music Therapy? Yes, not currently available Care Teams Industrial Engineering Director Relationship Specialty Start Date End Date Nahid Rodgers MD [address] [place] [address] PCP - General Internal Medicine 07/28/19 documented as of this encounter
--- OUTSIDE RECORDS SUMMARY | 2023-07-22 20:18 | External Medical Summary | Summary of Care ---
Author Name Unknown Organization [facility] Address [address] [place] [address] Phone [phone] Care Team Providers Care Instrumentation Chemist Name Role Phone Nahid Rodgers MD Primary Care Provider + Reason for Visit * Reason Comments Outpatient Testing Encounter Details Date Type Department Care Team (Late st Contact Info) Description 07/11/2023 1:10 PM EST Laboratory Laboratory, [facility] [address] [place] [id number] [facility] [address] [place] [address] Right upper quadrant abdominal tenderness with rebound tenderness Allergies Active Allergy Reactions Criticality Noted Date Comments Acetylcysteine High 02/14/2022 Other reaction(s): caused chest tightness, PVB and AFib Alendronate Sodium 12/13/2008 Other reaction(s): GI Upset Moxifloxacin Hcl In Nacl 04/01/2016 Hallucinations Black [place] Pollen Allergy Skin Test Rash High 10/16/2018 [...] area. 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 0 [...] Description 07/17/2023 8:30 AM EST Imaging Radiology [facility] 2nd [facility], [address] [place] [address] 07/24/2023 9:00 AM EST Office Visit [address] [place] [address] Robb Philip, DPT [address] [place] [address] 09/02/2023 2:30 PM EST Office Visit Gastroenterology, [facility] [address] [place] [address] Flaco Gomez CRNP [address] [place] [address] 09/10/2023 4:40 PM EST Office Visit General Internal Medicine [facility] [address] [facility] [place] [address] Nahid Rodgers MD 200 [facility] [place] [address] 09/16/2023 10:30 AM EST Cardiac Studies Cardiology, [facility] [address] [place] [address] [place] [address] [place] [address] 10/31/2023 2:30 PM EDT Office Visit Endocrinology, [place] [address] [place] [address] Henna Malohtra MD [facility]note 2] [place] [address] 01/29/2024 2:00 PM EDT Nurse Only Ancillary [facility] [place] [address] [facility] [place] [address] Im, Nurse Annual Wellness [facility] [address] [facility] [place] [address] Health Maintenance Due Date Last Done Comments [...] D LEVEL ONCE IN A LIFETIME-USE SMARTSET# 94004 Completed 04/30/2023, 08/12/2022, 07/22/2022, Additional history exists [...] this encounter Medical Devices Implanted Type Area Boring Machine Operator Double End Device Identifier Shelf Expiration Date Model / Serial / Lot [place] Mini Quick 2/0 [id number] - [id number] Implanted:Qty: 2 on 12/21/2018 by Marcus Collins MD at [place] [facility] Left: Hand JNJ : DEPUY MITEK SURG PROD 08/13/2021 [id number] / / [id number] documented as of this encounter Procedures Procedure Name Priority Date/Time Associated Diagnosis Comments DIFFERENTIAL, AUTOMATED Routine 07/11/2023 1:07 PM EST Right upper quadrant abdominal tenderness with rebound tenderness CBC Routine 07/11/2023 1:07 PM EST Right upper quadrant abdominal tenderness with rebound tenderness CBC Routine 07/11/2023 1:07 PM EST Right upper quadrant abdominal tenderness with rebound tenderness documented in this encounter Results * (ABNORMAL) DIFFERENTIAL, AUTOMATED (07/11/2023 1:07 PM EST) WBC 7.64 4.00 - 10.80 K/uL 07/11/2023 1:14 PM EST [facility] [place] [facility] Neutrophils % 73.9 40.0 - 75.0 % 07/11/2023 1:14 PM EST [facility] [place] [facility]10 Lymphocytes % 16.9(L) 18.0 - 42.0 % 07/11/2023 1:14 PM EST [facility] [place] [facility]10 Monocytes % 7.6 1.0 - 11.0 % 07/11/2023 1:14 PM EST [facility] [place] [facility] Eosinophils % 1.2 0.0 - 6.0 % 07/11/2023 1:14 PM EST [facility] [place] [facility]10 Basophils % 0.4 0.0 - 2.0 % 07/11/2023 1:14 PM EST [facility] [place] [facility]10 Absolute Neutrophils 5.65 1.80 - 7.70 K/uL 07/11/2023 1:14 PM EST [facility] [place] [facility]10 Absolute Lymphocytes 1.29 1.00 - 4.80 K/ul 07/11/2023 1:14 PM EST [facility] [place] [facility]10 Absolute Monocytes 0.58 0.00 - 1.10 K/uL 07/11/2023 1:14 PM EST [facility] [place] [facility]10 Absolute Eosinophils 0.09 0.00 - 0.70 K/uL 07/11/2023 1:14 PM EST [facility] [place] [facility]10 Absolute Basophils 0.03 0.00 - 0.20 K/uL 07/11/2023 1:14 PM EST [facility] [place] [facility]10 Blood Venous blood specimen / Unknown Venipuncture / Unknown 07/11/2023 1:07 PM EST 07/11/2023 1:07 PM EST Damian Cornejo PA-C LAB BLOOD ORDERABL ES [facility] [place] [facility]10 [address] [place] [address] * (ABNORMAL) CBC (07/11/2023 1:07 PM EST) WBC 7.64 4.00 - 10.80 K/uL 07/11/2023 1:14 PM EST [facility] [place] [facility] RBC 4.96 3.85 - 5.15 M/uL 07/11/2023 1:14 PM EST [facility] [place] [facility]10 HGB 15.1 12.0 - 15.3 g/dL 07/11/2023 1:14 PM EST [facility] [place] [facility] HCT 46.8(H) 36.0 - 45.2 % 07/11/2023 1:14 PM EST [facility] [place] [facility] MCV 94.4 81.5 - 97.5 fL 07/11/2023 1:14 PM EST [facility] [place] [facility] [facility] MCH 30.4 27.0 - 34.0 pg 07/11/2023 1:14 PM EST [facility] [place] [facility]10 MCHC 32.3 32.0 - 36.0 g/dL 07/11/2023 1:14 PM EST [facility] [place] [facility]10 RDW 15.1 11.5 - 15.5 % 07/11/2023 1:14 PM EST [facility] [place] [facility]10 PLT 172 140 - 400 K/uL 07/11/2023 1:14 PM EST [facility] [place] [facility]10 MPV 9.8 6.6 - 11.1 fL 07/11/2023 1:14 PM EST [facility] [place] [facility]10 Blood Venous blood specimen / Unknown Venipuncture / Unknown 07/11/2023 1:07 PM EST 07/11/2023 1:07 PM EST Damian Cornejo PA-C LAB BLOOD ORDERABL ES [facility] [place] [facility]10 [address] [place] [address] documented in this encounter Visit Diagnoses Diagnosis Right upper quadrant abdominal tenderness with rebound tenderness documented in this encounter Advance Directives Documents on File Type Date Recorded Patient Internal Medicine Specialist Expl anation Power of Seasoner Hand 02/20/2021 POWER OF A TTORNEY Latest Code [...] the patient have Health Care Power of Seasoner Hand? No Full Code 12/02/2016 9:50 PM 12/03/2016 2:50 PM This order reflects the patients wishes and were consensually agreed upon. Question Answer Comments Discussion of Advance Directives occurred with: Patient Does the patient have a Living Will? Yes, not currently available Does the patient have Health Care Power of Seasoner Hand? Yes, not currently available Care Teams Instrumentation Chemist Relationship Specialty Start Date End Date Nahid Rodgers MD [address] [facility] [address] PCP - General Internal Medicine 07/28/19 documented as of this encounter
--- OUTSIDE RECORDS SUMMARY | 2023-07-22 20:18 | External Medical Summary | Summary of Care ---
Author Name Unknown Organization [facility] Address [address] [place] [address] Phone [phone] Care Team Providers Care Reference Test Clerk Name Role Phone Nahid Rodgers MD Primary Care Provider + Reason for Referral * Medication Prior Authorization - Pending Review Specialty Diagnoses / Procedures Referred By Gabriela lares Referred To Contact Diagnoses Bilious vomiting with nausea Damian Cornejo PA-C [address] [place] [address] Referral ID Status Reason Start Date Expiration Date V isits Requested Visits Authorized [id number] Pending Review 999 999 * (Within 10 days (routine)) - Authorized Specialty Diagnoses / Procedures Referred By Gabriela lares Referred To Contact Radiology Diagnoses Right upper quadrant abdominal tenderness with rebound tenderness Procedures US ABDOMEN LIMITED Damian Cornejo PA-C [address] [place] [address] Referral ID Status Reason Start Date Expiration Date V isits Requested Visits Authorized [id number] Authorized 07/11/2023 999 999 Reason for Visit * Reason Comments Vomiting Yellow x's 6 days. S dean stopped now nausea. sweating Fatigue Short of Breath Encounter Details Date Type Department Care Team (Late Contact Info) Description 07/11/2023 11:40 AM EST Office Visit General Internal Medicine [facility] 200 [facility] [place], [place] [address] Damian Cornejo PA-C [facility] [place] [address] Right upper quadrant abdominal tenderness with rebound tenderness*; Bilious vomiting with nausea; Shortness of breath Allergies Active Allergy Reactions Criticality Noted Date Comments Acetylcysteine High 02/14/2022 Other reaction(s): caused chest tightness, PVB and AFib Alendronate Sodium 12/13/2008 Other reaction(s): GI Upset Moxifloxacin Hcl In Nacl 04/01/2016 Hallucinations Black [place] Pollen Allergy Skin Test Rash High 10/16/2018 [...] 30 g 5 03/08/20 23 Active Nystatin 802299 UNIT/GM External CreamIndications:Angula r cheilitis Apply topically [...] without sciatica 11/23/2018 Severe tricuspid 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 09/24/2018 residential current use of anticoagulant therapy 0 09/24/2018 [...] Some diarrhea. Vomiting was bilious. Traveled to [place] middle of May and came home June. Denies fever, no sinus pressure congestion. 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 30 g 5 Nystatin 620645 UNIT/GM External Cream Apply topically to affected [...] caused chest tightness, PVB and AFib Black [place] Pollen Allergy Skin Test Rash Burning sensation [...] Description 07/17/2023 8:30 AM EST Imaging Radiology [facility] 2nd [facility] [address] [place] [address] 07/24/2023 9:00 AM EST Office Visit [facility] [place] [address] [place] [address] Robb Philip, MICHAELT [facility] [place] [address] 09/02/2023 2:30 PM EST Office Visit Gastroenterology, [facility] [address] [place] [address] Flaco Gomez CRNP [address] [place] [address] 09/10/2023 4:40 PM EST Office Visit General Internal Medicine [facility] 200 [facility] [place] [address] Nahid Rodgers MD 200 [facility] [place] [address] 09/16/2023 10:30 AM EST Cardiac Studies Cardiology, [facility] [address] [place] [address] [facility] 132 [place] [address] 10/31/2023 2:30 PM EDT Office Visit Endocrinology, [address] [address] Henna Malhotra MD [facility] [place] [address] 01/29/2024 2:00 PM EDT Nurse Only Ancillary [facility] 200 [facility] [place] [address] Im, Nurse Annual Wellness [facility] [place] 200 [facility] [place] [address] Scheduled Orders Name Type Priority Associated Diagnoses Orde r Schedule US ABDOMEN LIMITED Medical Imaging Routine Right upper quadrant abdominal tenderness with rebound tenderness Expected: 07/11/2023 (Approximate), Expires: 08/11/2024 Health Maintenance Due Date Last Done Comments [...] D LEVEL ONCE IN A LIFETIME-USE SMARTSET# [id number] Completed 04/30/2023, 08/12/2022, 07/22/2022, Additional history exists [...] this encounter Medical Devices Implanted Type Area Hog Dropper Device Identifier Shelf Expiration Date Model / Serial / Lot [place] Mini Quick 2/0 [id number] - [id number] Implanted:Qty: 2 on 12/21/2018 by Marcus Collins MD at OR [facility] Left: Hand JNJ : DEPUY MITEK SURG PROD 08/13/2021 [id number] / / [id number] documented as of this encounter Procedures Procedure Name Priority Date/Time Associated Diagnosis Comments INFLUENZA A/B RSV SARS-COV2,PCR Routine 07/11/2023 12:07 PM EST Bilious vomiting with nausea Shortness of breath documented in this encounter Results * LIPASE (07/11/2023 12:18 PM EST) Pathologist [facility] Lipase 30 13 - 60 U/L 07/11/2023 9:47 PM EST LABORATORY [facility] Blood Venous blood specimen / Unknown Venipuncture / Unknown 07/11/2023 12:18 PM EST 07/11/2023 12:18 PM EST Damian Cornejo PA-C LAB BLOOD ORDERABL ES LAB[facility] [address] [place] [address] * COMPREHENSIVE METABOLIC PANEL (07/11/2023 12:18 PM EST) BUN 15 6 - 20 mg/dL 07/11/2023 1:40 PM EST [facility] 56-02 Creatinine 0.9 0.5 - 1.0 mg/dL 07/11/2023 1:40 PM EST [facility] 56-02 Estimated Glomerular Filtration Rate 65 >=60 mL/min 07/11/2023 1:40 PM EST [facility] 56-02 Comment:eGFR is calculated b ased on the CKD-EPI 2020 equation Sodium 139 135 - 146 mmol/L 07/11/2023 1:40 PM EST [facility] 56- Potassium 4.5 3.5 - 5.1 mmol/L 07/11/2023 1:40 PM EST [facility] 56- Chloride 103 98 - 107 mmol/L 07/11/2023 1:40 PM EST [address] CO2 25 22 - 32 mmol/L 07/11/2023 1:40 PM EST [address] Anion Gap 11 7 - 15 mmol/L 07/11/2023 1:40 PM EST [address] Glucose 89 70 - 120 mg/dL 07/11/2023 1:40 PM EST [address] Albumin 4.2 3.8 - 5.0 g/dL 07/11/2023 1:40 PM EST [address] AST 20 10 - 35 U/L 07/11/2023 1:40 PM EST [address] Alkaline Phosphatase 73 35 - 130 U/L 07/11/2023 1:[address] Bilirubin, Total 0.6 <=1.2 mg/dL 07/11/2023 1:40 PM EST [address] Calcium 9.8 8.4 - 10.2 mg/dL 07/11/2023 1:[address] Protein 6.5 6.0 - 8.3 g/dL 07/11/2023 1:[address] ALT 17 10 - 35 U/L 07/11/2023 1:[address] Blood Venous blood specimen / Unknown Venipuncture / Unknown 07/11/2023 12:18 PM EST 07/11/2023 12:18 PM EST Damian Cornejo PA-C LAB BLOOD ORDERABL ES [place] [address]- [address] [place] [address] * INFLUENZA A/B RSV SARS-COV2,PCR (07/11/2023 12:07 PM EST) SARS-CoV-2 (COVID-19) Result Negative Negative 07/11/2023 10:50 PM EST LABORATORY [facility] Comment: No SARS-CoV2 Coronavirus RNA detected by PCR (amplified probe). This express test was developed and its performance characteristics determined by [facility]. It has not been cleared or approved [...] (RT-PCR) test, or a Centers for Disease Control- acceptable equivalent. The test is performed in a high complexity Clinical Laboratory Improvement Amendments-(CLIA) certified laboratory. The test is acceptable for SARS-CoV-2 diagnosis, surveillance, and travel within the [place] and to most countries. Please check with local testing authorities about requirements before travel. The validation of bronchial specimens, tracheal aspirates, and sputum for this assay was developed and performance characteristics determined by [facility]. The validation of alternate specimen types has not been cleared or approved by the U.S. Food and Drug Administration (FDA). It has been determined that such clearance is not necessary. Influenza A PCR Result Negative Negative 07/11/2023 10:50 PM EST LABORATORY [facility] Comment:No Influenza A RNA d etected by PCR (amplified probe) Influenza B PCR Result Negative Negative 07/11/2023 10:50 PM EST LABORATORY [facility] Comment:No Influenza B RNA d etected by PCR (amplified probe) RSV PCR Result Negative Negative 07/11/2023 10:50 PM EST LABORATORY [facility] Comment:No Respiratory Syncy tial Virus RNA detected by PCR (amplified probe) Upper Respiratory Nasopharyngeal swab / Unknown Non-blood Collection / Unknown 07/11/2023 12:07 PM EST 07/11/2023 12:12 PM EST Damian Cornejo PA-C LAB MICRO - GENERA L ORDERABLES LABORATORY [facility] [address] [place] [address] documented in this encounter Visit Diagnoses Diagnosis Right upper quadrant abdominal tenderness with rebound tenderness- Primary Bilious vomiting with nausea Shortness of breath documented in this encounter Advance Directives Documents on File Type Date Recorded Patient Manager Reliability Expl anation Power of Furnace Clerk 02/20/2021 POWER OF A TTORNEY Latest Code [...] the patient have Health Care Power of Furnace Clerk? No Full Code 12/02/2016 9:50 PM 12/03/2016 2:50 PM This order reflects the patients wishes and were consensually agreed upon. Question Answer Comments Discussion of Advance Directives occurred with: Patient Does the patient have a Living Will? Yes, not currently available Does the patient have Health Care Power of Furnace Clerk? Yes, not currently available Care Teams Reference Test Clerk Relationship Specialty Start Date End Date Nahid Rodgers MD [address] [place] [address] PCP - General Internal Medicine 07/28/19 documented as of this encounter
--- OUTSIDE RECORDS SUMMARY | 2023-07-22 20:19 | External Medical Summary | Summary of Care ---
Author Name Unknown Organization [facility] Address [address] [place] [address] Phone [phone] Care Team Providers Care Book Store Associate Name Role Phone Nahid Rodgers MD Primary Care Provider + Encounter Details Date Type Department Care Team (Late st Contact Info) Description 05/28/2023 Patient Reported Data Patient Survey Ortho [facility] Allergies Active Allergy Reactions Criticality Noted Date Comments Acetylcysteine High 02/14/2022 Other reaction(s): caused chest tightness, PVB and AFib Alendronate Sodium 12/13/2008 Other reaction(s): GI Upset Moxifloxacin Hcl In Nacl 04/01/2016 Hallucinations Black [place] Pollen Allergy Skin Test Rash High 10/16/2018 [...] area. 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 [...] 06/25/2023 11:40 AM EST Office Visit Podiatry [facility] 132 [place] [address] Katty Carbone DPM [address] [place] [address] 07/24/2023 9:00 AM EST Office Visit [facility] [address] [place] [address] Robb Philip DPT [address] [place] [address] 09/02/2023 2:30 PM EST Office Visit Gastroenterology, [facility] 132 [facility] [place] [address] Flaco Gomez CRNP 132 [facility] [place] [address] 09/10/2023 4:40 PM EST Office Visit General Internal Medicine [facility] 200 [facility] [place] [address] Nahid Rodgers MD [address] [facility] [address] [place], [place] [address] 09/16/2023 10:30 AM EST Cardiac Studies Cardiology, [facility] 132 [place] [address] Movdarryl Pacer [facility] 132 [place] [address] 10/31/2023 2:30 PM EDT Office Visit Endocrinology, [place] [address] [place] [address] Henna Malhotra MD [address] [place] [address] 01/29/2024 2:00 PM EDT Nurse Only Ancillary [facility] [place] 200 [facility] [place], [place] [address] Im, Nurse Annual Wellness [facility] 200 [facility] [place] [address] Health Maintenance Due Date Last Done Comments [...] D LEVEL ONCE IN A LIFETIME-USE SMARTSET# [id number] Completed 04/30/2023, 08/12/2022, 07/22/2022, Additional history exists [...] this encounter Medical Devices Implanted Type Area Motor Vehicle Field Representative Device Identifier Shelf Expiration Date Model / Serial / Lot [place] Mini Quick 2/0 [id number] - [id number] Implanted:Qty: 2 on 12/21/2018 by Marcus Collins MD at [place] [facility] Left: Hand JNJ : DEPUY MITEK SURG PROD 08/13/2021 [id number] / / [id number] documented as of this encounter Advance Directives Documents on File Type Date Recorded Patient Parts Delivery Driver Expl 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 No Full Code 12/02/2016 9:50 PM 12/03/2016 2:50 PM This order reflects the patients wishes and were consensually agreed upon. Question Answer Comments Discussion of Advance Directives occurred with: Patient Does the patient have a Living Will? Yes, not currently available Does the patient have Health Care Power of Hand Reamer? Yes, not currently available Care Teams Book Store Associate Relationship Specialty Start Date End Date Nahid Rodgers MD [address] [place] [address] PCP - General Internal Medicine 07/28/19 documented as of this encounter
[2023-07-22] MEDS: ACETAMINOPHEN 1,000 MG/100 ML VIAL IV PRN (21:00)
[2023-07-22] MEDS ORDERED: LIDOCAINE 5% 1 PATCH TD ONE (21:00)
[2023-07-22] MEDS ORDERED: POLYETHYLENE (MIRALAX) 17 GM PACK PO PRN (22:05)
[2023-07-22] MEDS ORDERED: ALBUTEROL HFA 8 GM INHALER INH PRN (22:05)
[2023-07-22] MEDS ORDERED: ONDANSETRON INJ 2 MG/ML 2 ML VIAL IV PRN (22:05)
[2023-07-22] MEDS: LOSARTAN POTASSIUM 25 MG TAB PO SCH (22:50)
[2023-07-22] MEDS: FAMOTIDINE 20 MG TAB PO SCH (22:51)
[2023-07-22] MEDS: CHOLECALCIFEROL 1,000 UNITS 25 MCG TAB PO SCH (22:51)
[2023-07-22] MEDS: METOPROLOL TARTRATE 25 MG TAB PO SCH (22:52)
[2023-07-22] MEDS: APIXABAN 5 MG TABLET PO SCH (22:53)
[2023-07-22] MEDS: UMECLIDINIUM/VILANTEROL 62.5/25MCG 7 PUFFS/INHALER INH SCH (22:53)
[2023-07-23] MEDS: SODIUM CHLOR 7% 4 ML NEB INH SCH ×3 (01:08→20:43)
[2023-07-23] MEDS: SODIUM CHLORIDE 0.9% 1,000 ML IV SCH ×2 (03:45→19:39)
[2023-07-23 04:31] LABS: Hematocrit (blood only) 42.4 % (37.0-47.0); Hemoglobin 13.4 g/dl (12.0-16.0); Mean Corpuscular Hgb Conc 31.6 g/dL (32.0-36.0); Mean Corpuscular Volume 95.1 fL (80.0-100.0); Mean Platelet Volume 9.8 fL (9.4-12.4); Platelet Count 141 K/uL (130-400); RDW Coefficient of Variation 14.8 % (11.5-14.5); RDW Standard Deviation 52.5 fL (36.4-46.3); Red Blood Count 4.46 M/uL (4.20-5.40); White Blood Count 7.23 K/ul (4.8-10.8)
[2023-07-23 04:43] LABS: BUN Creatinine Ratio 22.5 (10-20); Calcium 8.8 mg/dl (8.6-10.3); Creatinine Clr Calc Pharmacy 58.7 ml/min; Est GFR (Non-African American) 68.2 ml/min; Potassium 3.9 mmol/L (3.5-5.1)
[2023-07-23] MEDS: LEVOTHYROXINE SODIUM 100 MCG TABLET PO SCH (06:28)
[2023-07-23] MEDS: ACETAMINOPHEN 1,000 MG/100 ML VIAL IV PRN (08:31)
[2023-07-23] MEDS: APIXABAN 5 MG TABLET PO SCH ×2 (08:34→20:03)
[2023-07-23] MEDS: CHOLECALCIFEROL 1,000 UNITS 25 MCG TAB PO SCH ×2 (08:35→20:04)
[2023-07-23] MEDS: DOCUSATE SODIUM 100 MG CAP PO SCH (08:36)
[2023-07-23] MEDS: FAMOTIDINE 20 MG TAB PO SCH ×2 (08:36→20:05)
[2023-07-23] MEDS: ROSUVASTATIN CALCIUM 5 MG TAB PO SCH (08:37)
[2023-07-23] MEDS: SERTRALINE HCL 50 MG TABLET PO SCH (08:37)
[2023-07-23] MEDS: METOPROLOL TARTRATE 50 MG TAB PO SCH (08:37)
[2023-07-23] MEDS: TORSEMIDE 10 MG TAB PO SCH (08:38)
[2023-07-23] MEDS ORDERED: guaiFENesin/DEXTROM SYRUP 100MG/10MG 5ML UDC PO SCH (09:00)
[2023-07-23] MEDS ORDERED: NON-FORMULARY MEDICATION (Food Supplemt, Lactose-Reduced [Ensure] Liquid) PO SCH (09:00)
--- NOTE | 2023-07-23 10:04 | Orthopedic Consultation ---
Date of Service July 23, 2023 Assessment & Plan (1) Closed pelvic fracture: I had a long discussion today with the patient about her pelvic fracture in full detail with ample amount of time for her to ask any questions or state any concerns. All questions and concerns were answered to the patient's satisfa ction. At this point, we can treat her superior and inferior pubic rami fractures conservatively. She may be guarded weightbearing with a walker for ambulatory assistance to the right lower extremity. We would recommend her working with physical therapy and Occupational Therapy to work on ambulation and range of motion exercises. She may benefit from an analgesic regimen prior to physical therapy working with her. From an orthopedic standpoint, she can have a full diet today. Medical management and DVT prophylaxis per primary. Please reach out by [place] text or reach out to [facility] orthopedics if this patient's situation is to change. History of Present Illness Reason for Consultation: . Right superior and inferior pubic rami fractures Requesting Physician: . Attending Physician: Gogo Gray MD . Patient is an 82-year-old female who is known to [facility] orthopedics due to having a left total hip arthroplasty by Dr. Claudio back on 10/18/2022 who subsequently fell yesterday evening and landed on her right hip. She had immediate onset of pain and was unable to ambulate. When she arrived to the emergency department, an x-ray and CT were completed which showed nondisplaced superior and inferior pubic rami fractures. At this point, orthopedics was consulted. Today, she notes that her pain is well-controlled whenever she is moving. She does note discomfort whenever she moves the right hip. She notes that the pain shoots into the groin with movements. She notes that at points her pain can get as high as an 8 out of 10. She denies any other concerns at this time. She is on Eliquis for anticoagulation. Allergies Allergy/AdvReac Type Severity Reaction Status Date / Time acetylcysteine Allergy Severe caused Verified 07/22/23 17:26 chest tightness, PVB and AFib Iodinated Contrast Media Allergy Severe ANAPHYLAXIS Verified 07/22/23 17:26 rivaroxaban Allergy Severe PERICARDIAL Verified 07/22/23 17:26 EFFUSION shellfish derived Allergy Severe "Seafood" Verified 07/22/23 17:26 -- ANAPHYLAXIS warfarin Allergy Severe "NUMBERS Verified 11/26/22 13:38 WENT TO HIGH" cayenne Allergy Intermediate hives Verified 07/22/23 17:26 erythromycin base Allergy Intermediate RASH Verified 07/22/23 17:26 simvastatin Allergy Intermediate RASH Verified 07/22/23 17:26 Enmmgiy-ZIB-JnF Reductase Allergy Intermediate Rash Verified 07/22/23 17:26 Inhibitor [Zuwhiab-Ycj-Qya Reductase Inhibitor] walnut Allergy Intermediate Rash WITH Verified 07/22/23 22:10 black walnut capsaicin Allergy Mild hives Verified 07/22/23 17:26 celecoxib Allergy Mild RASH Verified 07/22/23 17:26 nystatin Allergy Mild RASH Verified 07/22/23 17:26 azithromycin Allergy Unknown CAN'T Verified 07/22/23 17:26 REMEMBER omeprazole Allergy Unknown Unknown Verified 07/22/23 22:10 alendronate sodium Allergy GI upset Verified 07/22/23 17:26 lumiracoxib Allergy diarrhea Verified 07/22/23 17:26 Sulfa (Sulfonamide Allergy nausea, Verified 07/22/23 17:26 Antibiotics) vomiting moxifloxacin [From Avelox] AdvReac Severe Hallucinati Verified 07/22/23 22:10 ng lansoprazole [From Prevacid] AdvReac Intermediate FELT Verified 07/22/23 17:26 BLOATED AFTER TAKING Home Medications Medication Instructions Recorded Confirmed Type acetaminophen 325 mg tablet 325 mg PO Q6H PRN Pain 08/28/18 07/22/23 History (Tylenol) apixaban 5 mg tablet (Eliquis) 5 mg PO BID 08/28/18 07/22/23 History levothyroxine 100 mcg tablet 100 mcg PO DAILYBB 08/28/18 07/22/23 History metoprolol tartrate 50 mg tablet See Rx Instructions .Route .COMPLEX 08/28/18 07/22/23 History sertraline 25 mg tablet 25 mg PO QAM 08/28/18 07/22/23 History rosuvastatin 5 mg tablet 5 mg PO MOWEFR@0900 09/30/18 07/22/23 History famotidine 20 mg tablet 20 mg PO BID 08/03/20 07/22/23 History cholecalciferol (vitamin D3) 25 2,000 unit PO BID 09/14/20 07/22/23 History mcg (1,000 unit) capsule (Vitamin D3) biotin 1 mg tablet 1 mg PO Q OTHER DAY 12/14/20 07/22/23 History cyclosporine 0.05 % eye drops 1 drp ophthalmic (eye) Q12H 12/14/20 07/22/23 History (Restasis MultiDose) Flutter Valve #1 ea 08/09/21 07/22/23 Rx losartan 25 mg tablet 25 mg PO HS 08/09/21 07/22/23 History Wheeled Walker #1 ea 12/19/21 07/22/23 Rx qnwfzwip-bnay-bfso 8 mg-folic 400 1 tab PO Q2D 02/14/22 07/22/23 History mcg-K 50 mcg-lutein 300 mcg tablet (Centrum Silver Women) Incentive Spirometer #1 ea 02/21/22 07/22/23 Rx torsemide 5 mg tablet 5 mg PO Q OTHER DAY Edema 08/08/22 07/22/23 History sodium chloride 7 % for 4 ml inhalation BID #480 mL 08/16/22 07/22/23 Rx nebulization docusate sodium 100 mg tablet 200 mg PO DAILY 09/18/22 07/22/23 History food supplemt, lactose-reduced 1 ea PO DAILY 09/18/22 07/22/23 History (Ensure oral liquid) peg 400-propylene glycol (PF) 0.4 1 drp ophthalmic (eye) BID PRN Dry 09/18/22 07/22/23 History %-0.3 % eye drops in a dropperette Eyes (Systane (PF)) umeclidinium 62.5 mcg-vilanterol 1 inh inhalation HS 09/18/22 07/22/23 History 25 mcg/actuation powdr for inhalation (Anoro Ellipta) nebulizer accessories #1 ea 11/18/22 07/22/23 Rx Ventolin HFA 90 mcg/actuation 2 puff inhalation Q4H PRN 11/19/22 07/22/23 Rx aerosol inhaler (albuterol sulfate) shortness of breath or wheezing #3 Inhalers amoxicillin 500 mg tablet 2,000 mg PO DIRECTED PRN 07/22/23 07/22/23 History prophylaxis dextromethorphan-guaifenesin 10 1 ml PO DAILY 07/22/23 07/22/23 History mg-100 mg/5 mL oral liquid (Laura DM) Past Med/Surg History Medical History (HFpEF) heart failure with preserved ejection fraction Blood clot in eye 2019 CKD (chronic kidney disease) stage 3, GFR 30-59 ml/min Chronic diastolic (congestive) heart failure EF 55-60% Hypothyroidism Pulmonary hypertension Mild with PASP 36 mmHg. Likely type II for possible combination of type III per pulm, follows with [facility] cardio Primary hyperparathyroidism Tricuspid valve 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 Severe TR per 03/28/22 echo Pericardial effusion with cardiac tamponade 2018 > pericardial window ([facility]) Schatzki's ring Hiatal hernia Pulmonary scarring History of ovarian cyst Osteopenia GERD (gastroesophageal reflux disease) controlled, stable per pt with head elevation when sleeping History of depression Pacemaker Dual chamber, Medtronic, implanted [address] Chau Atrial fibrillation Dx many years ago, s/p multiple cardioversions, s/p dual chamber PPM 2017 with AV junction ablation Hypertension controlled, stable per pt Hyperlipidemia Bronchiectasis Follows with Dr. Clark Surgical History H/O hand surgery LEFT THUMB JOINT REPLACEMENT S/P transesophageal echocardiogram ([facility]) H/O partial thyroidectomy 1975 follicular adenoma of left lobe H/O toe surgery BILATERAL INGROWN TOENAILS REMOVED SURGICALLY History of cataract surgery R/L S/P pericardial window creation 08/2017 - [facility] History of atrioventricular brayan ablation 2016 History of anesthesia reaction "SLOW TO WAKE" History of bilateral tubal ligation History of breast biopsy BENIGN > SEVERAL BIOPSIES History of total knee replacement LEFT History of cholecystectomy History of appendectomy History of cystoscopy History of esophagogastroduodenoscopy (EGD) History of colonoscopy History of tonsillectomy History of tooth extraction History of sinus surgery History of cardiac cath 1986 ([facility]), FOR ABNORMAL STRESS TEST > NO STENTS/ANGIOPLASTY History of cardioversion MULTIPLE Family History Father Heart disease from scarlet fever Mother Dementia Heart disease Brother Heart disease from rheumatic fever Sister Hypothyroidism Other No family history of adverse response to anesthesia Social History Smoking Status: Never smoker Second Hand Exposure: Yes (in past); Do You Dip or Chew Tobacco: No; Hx Alcohol Use: Yes Alcohol type: wine Hx Substance Use: Yes Preferred Language: Setswana Communication Ability: Effective Fashion Designer Required: No Beliefs That Will Affect Care: None Current Living Situation: Long-Term Current Living Situation Comment: [place], alone--family nearby Other Information That Helps Us Care for You: 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 Physical Exam . Constitutional: WD/WN, vitals as above no acute distress Eyes: PERRL, conjunctivae normal, anicteric sclerae Neck: trachea midline, no thyromegaly Respiratory: normal respiratory effort, lungs clear to auscultation Cardiovascular: RRR, no murmur, no edema Vessels: normal carotid upstroke; no carotid bruit Gastrointestinal (Abdomen): normal bowel sounds, soft, nontender, no hepatosplenomegaly Skin: no rashes, warm and dry Neurologic: CN's II-XI intact bilaterally and moves all extremities Psychiatric: A+Ox3, euthymic affect Musculoskeletal On physical examination of the right hip, no erythema, ecchymosis, edema, or other obvious deformities. Some radiating discomfort with palpation of the anterior hip radiating to the groin. Limited range of motion and strength to the hip right hip secondary to discomfort. Normal range of motion at the knee, ankle, all 5 toes. Intact plantarflexion dorsiflexion to the right ankle. +2 DP and PT pulses. Less than 2-second capillary refill. Normal sensation. Neurovascular intact. Results & Data Results & Data Laboratory Results . Laboratory Results - last 24 hr 07/22/23 07/23/23 16:14 04:04 WBC 8.75 7.23 RBC 5.06 4.46 Hgb 15.5 13.4 Hct 46.4 42.4 MCV 91.7 95.1 MCH 30.6 30.0 MCHC 33.4 31.6 L RDW Std Deviation 50.4 H 52.5 H RDW Coeff of Woo 15.0 H 14.8 H Plt Count 189 141 MPV 9.9 9.8 PT 12.3 H INR 1.1 APTT 27 PTT Ratio 1.0 Sodium 139 138 Potassium 4.1 3.9 Chloride 105 105 Carbon Dioxide 27 29 Anion Gap 7 4 BUN 17 18 Creatinine 0.83 0.80 Est Cr Clr Drug Dosing 54.3 58.7 Est GFR ( Amer) 75.6 79.0 Est GFR (Non-Af Amer) 65.2 68.2 BUN/Creatinine Ratio 20.5 H 22.5 H Glucose 107 H 104 H Calcium 9.9 8.8 Diagnostic Findings Hip/Pelvis X-Ray 07/22/23 16:20 XR hip RT 2V w pelvis CLINICAL HISTORY: fall, hip pain TECHNIQUE: 2 views of the right hip and single frontal view of the pelvis were obtained. Comparison: Comparison is made to hip radiograph 10/18/2022 FINDINGS: There is no evidence of an acute fracture. Mild degenerative changes are seen in the right hip. Patient is status post left hip total arthroplasty. No soft tissue abnormality is seen. IMPRESSION: Mild degenerative changes in the right hip joint without evidence of acute abnormality. ACT 112: Negative or not required by law. Electronically signed by: Luis Eduardo Cantu M.D. 07/22/2023 5:[address] 07/22/23 17:47 CT hip RT wo con CLINICAL HISTORY: fall, pain TECHNIQUE: Multidetector row helical CT of the right hip was performed without intravenous contrast. Coronal and sagittal reformations were obtained. Automated dose lowering techniques and/or adjustment according to patient size were utilized for this examination. CT DOSE: 657.16 mGy.cm Comparison: Comparison is made to right hip radiograph 07/22/2023 FINDINGS: There is a nondisplaced fracture of the superior and inferior pubic rami. Partially visualized, there may be a fracture of the pubic ramus as well. Mild degenerative changes are seen in the femoroacetabular joint. No femoral fracture is seen. No joint effusion is seen. The soft tissues are unremarkable. IMPRESSION: There are nondisplaced fractures of the superior and inferior pubic rami with possible involvement of the pubic symphysis as well. ACT 112: Negative or not required by law. Electronically signed by: Luis Eduardo Cantu M.D. 07/22/2023 6:51 PM PG Care Time/CCT Total # of Minutes Spent Total Time Spent with Patient: Total time spent is greater than 50% in coordination of care (as documented) at patient's floor/unit and/or counseling patient: Coding Level of Care Code 41722 IN/OBS CONSULT LVL 3,45M Diagnoses Closed pelvic fracture S32.9XXA Encounter type: initial encounter Fracture alignment: displaced Pelvic bone location: unspecified part of pelvis (1) Closed pelvic fracture Encounter type: initial encounter Fracture alignment: displaced Pelvic bone location: unspecified part of pelvis Qualified Code(s): S32.9XXA - Fracture of unspecified parts of lumbosacral spine and pelvis, initial encounter for closed fracture
--- NOTE | 2023-07-23 10:18 | Hospitalist Progress Note ---
Date of Service July 23, 2023 Assessment & Plan (1) Fall: (2) Acute right hip pain: (3) Closed pelvic fracture: (4) Atrial fibrillation: (5) (HFpEF) heart failure with preserved ejection fraction: (6) Bronchiectasis: (7) Hypothyroidism: (8) GERD (gastroesophageal reflux disease): (9) HLD (hyperlipidemia): Plan This is an 82-year-old female with PMH of bronchiectasis, chronic atrial fibrillation status post AV brayan ablation on anticoagulation, chronic diastolic CHF, status post pacemaker placement, hypertension, depression and other medical problems listed below who presented after a fall and was found to have nondisplaced fractures of the superior and inferior pubic rami. Mechanical fall Non displaced fractures of superior and inferior rami Mechanical fall while ambulating with walker at independent living facility dining room No head trauma. CT head without acute intracranial hemorrhage, skull fractures, or scalp swelling Hip CT with nondisplaced fractures of the superior and inferior pubic rami with possible involvement of the pubic symphysis as well Orthopedics consulted, appreciate recs -conservative management at this time -PT/OT Pain control with PRN Tylenol, PRN dilaudid for severe pain, lidocaine patch (for lower back as well) PT/OT Resides at [facility]. living, ambulates with walker at baseline Atrial fibrillation on anticoagulation Continue Lopressor No head trauma with fall, CT head without abnormality Continue Eliquis BID for anticoagulation HFpEF Continue Lopressor, torsemide Bronchiectasis At respiratory baseline. Admitting CXR with no acute chest disease. Continue Flutter valve TID when awake, hypertonic saline nebs, Anoro Ellipta HS, Ventolin inh PRN Continue home cough syrup-nonformulary Hypothyroidism Continue levothyroxine Recent parathyroidectomy Continue vitamin D BID HLD Continue statin GERD Continue H2 ernie BID Eye dryness Continue home eye drops- nonformulary DVT Ppx: Eliquis Code status: FULL Dispo: Per PT/OT recs Admission and Anticipated Discharge Date Admission Date: July 22, 2023 Subjective Pt seen in the AM with daughter at bedside. Stated that she was now having lower back pain as well from being on her back for so long. Notes Hx of prior compression fracture. Also requesting to take own medications from home, her restasis and nonDM cough syrup. Review of Systems Review of Systems: All systems reviewed & are unremarkable except as noted in Subjective Physical Exam Physical Exam: General: Alert, oriented. No acute distress Skin: No noted rashes or bruises Psych: Appropriate mood and affect Neuro: difficulty with movements in the bed without pain HEENT: NC/AT Chest: Nontender to palpation. CV: RRR, Resp: Breath sounds clear bilaterally, no increased effort of breathing. Abdomen: Soft, nontender, nondistended. Extremities: No edema in lower extremities bilaterally. Results & Data Results & Data Vital Signs (Past 12 Hours) Vital Signs Temp Pulse Pulse Resp BP BP Pulse Ox 07/23/23 09:30 20 96 07/23/23 09:00 74 22 95 07/23/23 08:30 70 23 96 07/23/23 08:00 126/70 07/23/23 08:00 72 16 96 07/23/23 07:30 74 16 95 07/23/23 07:00 77 15 94 07/23/23 06:52 75 07/23/23 06:41 07/23/23 06:40 75 15 100 07/23/23 06:38 77 16 100 07/23/23 06:30 81 25 H 99 07/23/23 06:20 70 16 100 07/23/23 06:10 70 16 100 07/23/23 06:00 117/75 07/23/23 06:00 71 15 100 07/23/23 05:50 74 19 99 07/23/23 05:40 70 15 99 07/23/23 05:30 71 20 100 07/23/23 05:20 70 15 99 07/23/23 05:10 72 18 98 07/23/23 05:00 70 16 99 07/23/23 04:50 70 16 99 07/23/23 04:40 70 15 98 07/23/23 04:30 70 16 99 07/23/23 04:20 70 18 98 07/23/23 04:10 70 16 98 07/23/23 04:04 113/73 07/23/23 04:04 71 15 98 07/23/23 04:00 71 15 07/23/23 03:50 71 17 99 07/23/23 03:40 74 23 97 07/23/23 03:30 70 16 97 07/23/23 03:20 72 19 97 07/23/23 03:10 71 18 97 07/23/23 03:00 77 18 97 07/23/23 02:50 82 20 96 07/23/23 02:40 79 19 96 07/23/23 02:30 71 17 97 07/23/23 02:20 70 21 96 07/23/23 02:10 70 20 96 07/23/23 02:00 70 27 H 96 07/23/23 02:00 90/52 L 07/23/23 01:50 70 18 96 07/23/23 01:40 70 18 95 07/23/23 01:30 70 17 95 07/23/23 01:20 70 23 95 07/23/23 01:10 70 15 94 07/23/23 01:00 74 15 97 07/23/23 00:50 93 H 25 H 97 07/23/23 00:40 72 29 H 97 07/23/23 00:30 89 17 97 07/23/23 00:20 71 15 97 07/23/23 00:10 72 18 97 07/23/23 00:00 114/69 07/23/23 00:00 77 19 96 07/22/23 23:50 79 21 96 07/22/23 23:40 74 17 96 07/22/23 23:37 71 07/22/23 23:35 71 16 130/100 95 07/22/23 23:30 70 15 93 07/22/23 23:20 70 17 93 07/22/23 22:39 07/22/23 22:38 88 L 07/22/23 22:36 36.4 C L 78 18 130/100 93 Pulse Ox O2 Del Method O2 Del Method O2 Flow Rate 07/23/23 09:30 07/23/23 09:00 07/23/23 08:30 07/23/23 08:00 07/23/23 08:00 07/23/23 07:30 07/23/23 07:00 07/23/23 06:52 07/23/23 06:41 Room Air 07/23/23 06:40 07/23/23 06:38 Nasal Cannula 2 07/23/23 06:30 07/23/23 06:20 07/23/23 06:10 07/23/23 06:00 07/23/23 06:00 07/23/23 05:50 07/23/23 05:40 07/23/23 05:30 07/23/23 05:20 07/23/23 05:10 07/23/23 05:00 07/23/23 04:50 07/23/23 04:40 07/23/23 04:30 07/23/23 04:20 07/23/23 04:10 07/23/23 04:04 07/23/23 04:04 07/23/23 04:00 07/23/23 03:50 07/23/23 03:40 07/23/23 03:30 07/23/23 03:20 07/23/23 03:10 07/23/23 03:00 07/23/23 02:50 07/23/23 02:40 07/23/23 02:30 07/23/23 02:20 07/23/23 02:10 07/23/23 02:00 07/23/23 02:00 07/23/23 01:50 07/23/23 01:40 07/23/23 01:30 07/23/23 01:20 07/23/23 01:10 07/23/23 01:00 07/23/23 00:50 07/23/23 00:40 07/23/23 00:30 07/23/23 00:20 07/23/23 00:10 07/23/23 00:00 07/23/23 00:00 07/22/23 23:50 07/22/23 23:40 07/22/23 23:37 07/22/23 23:35 Nasal Cannula 2 07/22/23 23:30 07/22/23 23:20 07/22/23 22:39 94 Nasal Cannula 07/22/23 22:38 Room Air 07/22/23 22:36 Nasal Cannula 2 (1) Fall Encounter type: initial encounter Qualified Code(s): W19.XXXA - Unspecified fall, initial encounter (3) Closed pelvic fracture Encounter type: initial encounter Fracture alignment: displaced Pelvic bone location: unspecified part of pelvis Qualified Code(s): S32.9XXA - Fracture of unspecified parts of lumbosacral spine and pelvis, initial encounter for closed fracture
[2023-07-23] MEDS: LIDOCAINE 5% 1 PATCH TD SCH (11:30)
[2023-07-23 11:37] LABS: Appearance Urine Clear (Clear); Bilirubin Urine Negative (Negative); Blood Urine Negative (Negative); Color Urine Dark Yellow; Glucose Urine UA Negative (Negative); Ketones Urine Negative (Negative); Leukocyte Esterase Urine Negative (Negative); Nitrite Urine Negative (Negative); Protein Urine Negative (Negative); Specific Gravity Urine 1.024 (1.000-1.030); Urobilinogen Urine Negative (Negative); pH Urine 5.5 (4.5-7.5)
[2023-07-23] MEDS: guaiFENesin 200 MG TAB PO SCH (12:37)
[2023-07-23] MEDS: HYDROmorphone INJ 0.5 MG/0.5 ML SYR IV PRN ×2 (14:44→21:43)
[2023-07-23] MEDS: cycloSPORINE (RESTASIS) OP SCH (20:02)
[2023-07-23] MEDS: METOPROLOL TARTRATE 25 MG TAB PO SCH (20:03)
[2023-07-23] MEDS: LOSARTAN POTASSIUM 25 MG TAB PO SCH (20:05)
[2023-07-23] MEDS: UMECLIDINIUM/VILANTEROL 62.5/25MCG 7 PUFFS/INHALER INH SCH (20:06)
[2023-07-24] MEDS: ACETAMINOPHEN 325 MG TAB PO PRN ×2 (05:25→22:55)
[2023-07-24] MEDS: LEVOTHYROXINE SODIUM 100 MCG TABLET PO SCH (05:26)
[2023-07-24] MEDS: HYDROmorphone INJ 0.5 MG/0.5 ML SYR IV PRN ×3 (05:48→22:55)
[2023-07-24 06:55] LABS: Hematocrit (blood only) 40.7 % (37.0-47.0); Mean Corpuscular Hemoglobin 30.4 pg (25.0-34.0); Mean Corpuscular Hgb Conc 31.9 g/dL (32.0-36.0); Mean Corpuscular Volume 95.1 fL (80.0-100.0); Mean Platelet Volume 10.2 fL (9.4-12.4); Platelet Count 142 K/uL (130-400); RDW Standard Deviation 52.1 fL (36.4-46.3); Red Blood Count 4.28 M/uL (4.20-5.40); White Blood Count 6.98 K/ul (4.8-10.8)
[2023-07-24 07:22] LABS: BUN Creatinine Ratio 22.9 (10-20); Creatinine Clr Calc Pharmacy 71.2 ml/min; Est GFR (African American) 92.9 ml/min; Est GFR (Non-African American) 80.1 ml/min; Magnesium 1.8 mg/dl (1.7-2.4)
[2023-07-24] MEDS: SODIUM CHLOR 7% 4 ML NEB INH SCH ×2 (07:51→18:24)
[2023-07-24] MEDS: FAMOTIDINE 20 MG TAB PO SCH ×2 (08:15→22:35)
[2023-07-24] MEDS: guaiFENesin 200 MG TAB PO SCH (08:15)
[2023-07-24] MEDS: cycloSPORINE (RESTASIS) OP SCH ×2 (08:15→23:01)
[2023-07-24] MEDS: METOPROLOL TARTRATE 50 MG TAB PO SCH (08:16)
[2023-07-24] MEDS: APIXABAN 5 MG TABLET PO SCH ×2 (08:18→22:58)
[2023-07-24] MEDS: CHOLECALCIFEROL 1,000 UNITS 25 MCG TAB PO SCH ×2 (08:18→22:59)
[2023-07-24] MEDS: SERTRALINE HCL 50 MG TABLET PO SCH (08:18)
[2023-07-24] MEDS: DOCUSATE SODIUM 100 MG CAP PO SCH (08:18)
[2023-07-24] MEDS: LIDOCAINE 5% 1 PATCH TD SCH (08:19)
[2023-07-24] MEDS ORDERED: CEROVITE ADV FORMULA TAB PO SCH (09:00)
--- NOTE | 2023-07-24 10:58 | Hospitalist Progress Note ---
Date of Service July 24, 2023 Assessment & Plan (1) Fall: (2) Acute right hip pain: (3) Closed pelvic fracture: (4) Atrial fibrillation: (5) (HFpEF) heart failure with preserved ejection fraction: (6) Bronchiectasis: (7) Hypothyroidism: (8) GERD (gastroesophageal reflux disease): (9) HLD (hyperlipidemia): Plan This is an 82-year-old female with PMH of bronchiectasis, chronic atrial fibrillation status post AV brayan ablation on anticoagulation, chronic diastolic CHF, status post pacemaker placement, hypertension, depression and other medical problems listed below who presented after a fall and was found to have nondisplaced fractures of the superior and inferior pubic rami. Mechanical fall Non displaced fractures of superior and inferior rami Mechanical fall while ambulating with walker at independent [facility] dining room No head trauma. CT head without acute intracranial hemorrhage, skull fractures, or scalp swelling Hip CT with nondisplaced fractures of the superior and inferior pubic rami with possible involvement of the pubic symphysis as well Orthopedics consulted, appreciate recs -conservative management at this time -PT/OT Pain control with PRN Tylenol, PRN dilaudid for severe pain, lidocaine patch (for lower back as well) PT/OT- recommending d/c to [facility] for inpt rehab Resides at [facility], ambulates with walker at baseline Atrial fibrillation on anticoagulation Continue Lopressor No head trauma with fall, CT head without abnormality Continue Eliquis BID for anticoagulation HFpEF Continue Lopressor, torsemide Bronchiectasis At respiratory baseline. Admitting CXR with no acute chest disease. Continue Flutter valve TID when awake, hypertonic saline nebs, Anoro Ellipta HS, Ventolin inh PRN Continue home cough syrup-nonformulary Hypothyroidism Continue levothyroxine Recent parathyroidectomy Continue vitamin D BID HLD Continue statin GERD Continue H2 ernie BID Eye dryness Continue home eye drops- nonformulary DVT Ppx: Eliquis Code status: FULL Dispo: d/c to [facility] for inpt rehab Admission and Anticipated Discharge Date Admission Date: July 22, 2023 Subjective Pt seen in the AM with daughter at bedside. States that she worked very hard with PT the day before and feels like she might have overdone it. Back pain improved. On colace daily but has not yet had a BM. Physical Exam Physical Exam: General: Alert, oriented. No acute distress Skin: No noted rashes or bruises Psych: Appropriate mood and affect Neuro: difficulty with movements in the bed without pain HEENT: NC/AT Chest: Nontender to palpation. CV: RRR Resp: Breath sounds clear bilaterally, no increased effort of breathing. Abdomen: Soft, nontender, nondistended. Extremities: No edema in lower extremities bilaterally. Results & Data Results & Data Vital Signs (Past 12 Hours) Vital Signs Temp Pulse Pulse Resp BP Pulse Ox O2 Del Method 07/24/23 08:00 Room Air 07/24/23 07:56 36.6 C 77 18 96/67 L 92 Room Air 07/24/23 07:51 74 18 92 Room Air 07/24/23 07:36 73 07/24/23 03:59 36.8 C 71 18 104/63 92 Room Air 07/23/23 23:56 36.9 C 71 18 106/71 91 Room Air (1) Fall Encounter type: initial encounter Qualified Code(s): W19.XXXA - Unspecified fall, initial encounter (3) Closed pelvic fracture Encounter type: initial encounter Fracture alignment: displaced Pelvic bone location: unspecified part of pelvis Qualified Code(s): S32.9XXA - Fracture of unspecified parts of lumbosacral spine and pelvis, initial encounter for closed fracture
[2023-07-24] MEDS: LOSARTAN POTASSIUM 25 MG TAB PO SCH (22:36)
[2023-07-24] MEDS: METOPROLOL TARTRATE 25 MG TAB PO SCH (22:58)
[2023-07-24] MEDS: UMECLIDINIUM/VILANTEROL 62.5/25MCG 7 PUFFS/INHALER INH SCH (22:59)
[2023-07-24] MEDS: DOCUSATE SODIUM/SENNA 50/8.6MG TAB PO SCH (23:00)
[2023-07-25] MEDS: HYDROmorphone INJ 0.5 MG/0.5 ML SYR IV PRN ×2 (03:55→14:10)
[2023-07-25] MEDS: LEVOTHYROXINE SODIUM 100 MCG TABLET PO SCH (05:40)
[2023-07-25 06:44] LABS: Hematocrit (blood only) 37.4 % (37.0-47.0); Hemoglobin 11.9 g/dl (12.0-16.0); Mean Corpuscular Hemoglobin 29.9 pg (25.0-34.0); Mean Corpuscular Hgb Conc 31.8 g/dL (32.0-36.0); Mean Platelet Volume 10.4 fL (9.4-12.4); Platelet Count 121 K/uL (130-400); RDW Coefficient of Variation 14.9 % (11.5-14.5); RDW Standard Deviation 52.1 fL (36.4-46.3); Red Blood Count 3.98 M/uL (4.20-5.40); White Blood Count 6.63 K/ul (4.8-10.8)
[2023-07-25] MEDS: SODIUM CHLOR 7% 4 ML NEB INH SCH (07:00)
[2023-07-25 07:26] LABS: Calcium 8.5 mg/dl (8.6-10.3); Potassium 3.9 mmol/L (3.5-5.1)
[2023-07-25 07:31] LABS: BUN Creatinine Ratio 20.9 (10-20); Creatinine Clr Calc Pharmacy 74.4 ml/min; Est GFR (African American) 94.2 ml/min; Est GFR (Non-African American) 81.3 ml/min
[2023-07-25] MEDS: SERTRALINE HCL 50 MG TABLET PO SCH (09:21)
[2023-07-25] MEDS: TORSEMIDE 10 MG TAB PO SCH (09:21)
[2023-07-25] MEDS: CHOLECALCIFEROL 1,000 UNITS 25 MCG TAB PO SCH (09:21)
[2023-07-25] MEDS: FAMOTIDINE 20 MG TAB PO SCH (09:21)
[2023-07-25] MEDS: ROSUVASTATIN CALCIUM 5 MG TAB PO SCH (09:21)
[2023-07-25] MEDS: METOPROLOL TARTRATE 50 MG TAB PO SCH (09:21)
[2023-07-25] MEDS: LIDOCAINE 5% 1 PATCH TD SCH (09:22)
[2023-07-25] MEDS: APIXABAN 5 MG TABLET PO SCH (09:22)
[2023-07-25] MEDS: cycloSPORINE (RESTASIS) OP SCH (09:22)
[2023-07-25] MEDS: guaiFENesin 200 MG TAB PO SCH (09:22)
[2023-07-25] MEDS: DOCUSATE SODIUM/SENNA 50/8.6MG TAB PO SCH (09:22)
[2023-07-25] MEDS: ACETAMINOPHEN 1,000 MG/100 ML VIAL IV PRN (09:52)
--- NOTE | 2023-07-25 13:28 | Discharge Summary ---
Discharge Summary Date of Service July 25, 2023 Notes For Next Care Provider Orthopedics recommends discharge with partial weightbearing and following up with their office in 10-14 days Medication Changes From Visit Oxycodone 5mg q8h PRN for pain Admission HPI Per Admitting Provider This is an 82-year-old female with PMH of bronchiectasis, chronic atrial fibrillation status post AV brayan ablation on anticoagulation, chronic diastolic CHF, status post pacemaker placement, hypertension, depression and other medical problems listed below who presents after fall. Patient lives alone in [facility] and ambulates with a walker. Follows with Dr. Rodgers for primary care. Patient was ambulating in the dining room and tripped during a percy transition and was brought in for further evaluation. No preceding lightheadedness or CP. H/o L knee and hip replacement. Denies hitting head. Comfortable at rest but significant pain with any movement. Pain on lateral aspect of R hip radiating in towards groin. No F/C, lightheadedness, CP, SOB, N/V, abdominal pain, dysuria, diarrhea or constipation. Admission Exam Per Admitting Provider General: Pleasant and AOx4, NAD CV RRR, no murmur appreciated RESP CTABL GI NTND MSK: Right groin pain, unable to move right leg 2/2 pain that extends from groin into buttock Principal Dx & Hospital Course #1 = Principal Diagnosis (1) Fall: (2) Acute right hip pain: (3) Closed pelvic fracture: (4) Atrial fibrillation: (5) (HFpEF) heart failure with preserved ejection fraction: (6) Bronchiectasis: (7) Hypothyroidism: (8) GERD (gastroesophageal reflux disease): (9) HLD (hyperlipidemia): Plan This is an 82-year-old female with PMH of bronchiectasis, chronic atrial fibrillation status post AV brayan ablation on anticoagulation, chronic diastolic CHF, status post pacemaker placement, hypertension, depression and other medical problems listed below who presented after a fall and was found to have no ndisplaced fractures of the superior and inferior pubic rami. Mechanical fall Non displaced fractures of superior and inferior rami Mechanical fall while ambulating with walker at independent living facility dining room No head trauma. CT head without acute intracranial hemorrhage, skull fractures, or scalp swelling Hip CT with nondisplaced fractures of the superior and inferior pubic rami with possible involvement of the pubic symphysis as well Orthopedics consulted, appreciate recs -conservative management at this time -PT/OT Pain control with PRN Tylenol, PRN dilaudid for severe pain, lidocaine patch (for lower back as well) PT/OT- recommending d/c to [facility] for inpt rehab Resides at [facility] independent living, ambulates with walker at baseline Recommendations from orthopedics when seen: "She may be guarded weightbearing with a walker for ambulatory assistance to the right lower extremity. We would recommend her working with physical therapy and Occupational Therapy to work on ambulation and range of motion exercises. She may benefit from an analgesic regimen prior to physical therapy working with her. " Upon discharge, orthopedics recommends discharge with partial weightbearing and following up with their office in 10-14 days. Atrial fibrillation on anticoagulation Continue Lopressor No head trauma with fall, CT head without abnormality Continue Eliquis BID for anticoagulation PCP follow up HFpEF Continue Lopressor, torsemide PCP follow up Bronchiectasis At respiratory baseline. Admitting CXR with no acute chest disease. Continue Flutter valve TID when awake, hypertonic saline nebs, Anoro Ellipta HS, Ventolin inh PRN Continue home cough syrup-nonformulary PCP follow up Hypothyroidism Continue levothyroxine PCP follow up Recent parathyroidectomy Continue vitamin D BID PCP followup HLD Continue statin GERD Continue H2 ernie BID Eye dryness Continue home eye drops- nonformulary Discharge Exam General: Alert, oriented. No acute distress Skin: No noted rashes or bruises Psych: Appropriate mood and affect Neuro: difficulty with movements in the bed without pain in her hip HEENT: NC/AT Chest: Nontender to palpation. CV: RRR Resp: Breath sounds clear bilaterally, no increased effort of breathing. Abdomen: Soft, nontender, nondistended. Extremities: No edema in lower extremities bilaterally. Updated Medication List Medication Instructions Recorded Confirmed Type acetaminophen 325 mg tablet 325 mg PO Q6H PRN Pain 08/28/18 07/22/23 History (Tylenol) apixaban 5 mg tablet (Eliquis) 5 mg PO BID 08/28/18 07/22/23 History levothyroxine 100 mcg tablet 100 mcg PO DAILYBB 08/28/18 07/22/23 History metoprolol tartrate 50 mg tablet See Rx Instructions .Route .COMPLEX 08/28/18 07/22/23 History sertraline 25 mg tablet 25 mg PO QAM 08/28/18 07/22/23 History rosuvastatin 5 mg tablet 5 mg PO MOWEFR@0900 09/30/18 07/22/23 History famotidine 20 mg tablet 20 mg PO BID 08/03/20 07/22/23 History cholecalciferol (vitamin D3) 25 2,000 unit PO BID 09/14/20 07/22/23 History mcg (1,000 unit) capsule (Vitamin D3) biotin 1 mg tablet 1 mg PO Q OTHER DAY 12/14/20 07/22/23 History cyclosporine 0.05 % eye drops 1 drp ophthalmic (eye) Q12H 12/14/20 07/22/23 History (Restasis MultiDose) Flutter Valve #1 ea 08/09/21 07/22/23 Rx losartan 25 mg tablet 25 mg PO HS 08/09/21 07/22/23 History Wheeled Walker #1 ea 12/19/21 07/22/23 Rx hqhcuclh-uroc-hygw 8 mg-folic 400 1 tab PO Q2D 02/14/22 07/22/23 History mcg-K 50 mcg-lutein 300 mcg tablet (Centrum Silver Women) Incentive Spirometer #1 ea 02/21/22 07/22/23 Rx torsemide 5 mg tablet 5 mg PO Q OTHER DAY Edema 08/08/22 07/22/23 History sodium chloride 7 % for 4 ml inhalation BID #480 mL 08/16/22 07/22/23 Rx nebulization docusate sodium 100 mg tablet 200 mg PO DAILY 09/18/22 07/22/23 History food supplemt, lactose-reduced 1 ea PO DAILY 09/18/22 07/22/23 History (Ensure oral liquid) peg 400-propylene glycol (PF) 0.4 1 drp ophthalmic (eye) BID PRN Dry 09/18/22 07/22/23 History %-0.3 % eye drops in a dropperette Eyes (Systane (PF)) umeclidinium 62.5 mcg-vilanterol 1 inh inhalation HS 09/18/22 07/22/23 History 25 mcg/actuation powdr for inhalation (Anoro Ellipta) nebulizer accessories #1 ea 11/18/22 07/22/23 Rx Ventolin HFA 90 mcg/actuation 2 puff inhalation Q4H PRN 11/19/22 07/22/23 Rx aerosol inhaler (albuterol sulfate) shortness of breath or wheezing #3 Inhalers amoxicillin 500 mg tablet 2,000 mg PO DIRECTED PRN 07/22/23 07/22/23 History prophylaxis dextromethorphan-guaifenesin 10 1 ml PO DAILY 07/22/23 07/22/23 History mg-100 mg/5 mL oral liquid (Tussin DM) oxycodone 5 mg tablet 5 mg PO Q6H PRN pain #20 tabs 07/25/23 Rx Hospital Stay Data Consultations 07/22/23 18:28 ED Decision to Admit Stat 07/22/23 19:29 Consult Orthopedic Surgery Routine Diagnostic Imagining Performed 07/22/23 16:20 CT cervical spine wo con Stat CT head/brain wo con Stat 07/22/23 17:47 CT hip RT wo con Stat Cervical Spine CT 07/22/23 16:20 CT cervical spine wo con CLINICAL HISTORY: fall, elquis TECHNIQUE: Multidetector row helical CT of the cervical spine was performed without administration of intravenous contrast. Coronal and sagittal reformations were obtained. Automated dose lowering techniques and/or adjustment according to patient size were utilized for this exam. Comparison: None available at the time of this dictation. FINDINGS: No acute fractures or subluxations are identified. Degenerative changes are seen in the visualized spine. The alignment is normal. Soft tissues are unremarkable. IMPRESSION: Degenerative changes without evidence of acute bony injury. ACT 112: Negative or not required by law. Electronically signed by: Luis Eduardo Cantu M.D. 07/22/2023 5:02 PM Chest X-Ray 07/22/23 16:20 XR chest 1V portable CLINICAL HISTORY: fall TECHNIQUE: Single frontal radiograph of the chest was obtained. Comparison: Comparison is made to chest radiograph 04/11/2022 FINDINGS: An implanted pacemaker is seen. The cardiomediastinal silhouette is normal. The lungs are clear. No evidence of pleural effusion or pneumothorax. IMPRESSION: No acute chest disease. ACT 112: Negative or not required by law. Electronically signed by: Luis Eduardo Cantu M.D. 07/22/2023 5:[address] 07/22/23 16:20 CT head/brain wo con CLINICAL HISTORY: fall, eliquis Technique: Contiguous axial CT images of the head were acquired from the base of the skull to the vertex without intravenous contrast administration. Images were viewed in brain, subdural and bone windows. Automated dose lowering techniques and/or adjustment according to patient size were utilized for this exam. Comparison: Comparison is made to CT head 06/30/2017 Findings: Areas of decreased attenuation are present in the periventricular and subcortical white matter bilaterally consistent with small vessel ischemic disease. Generalized cerebral atrophy with commensurate enlargement of the ventricles, sulci, and cisterns is also present. There is no acute intracranial hemorrhage or evidence of acute territorial infarction. No shift of the midline structures, mass effect, or extra-axial abnormalities are shown. Atherosclerotic calcifications are present in the intracranial segments of the internal carotid arteries. Imaged portions of the paranasal sinuses and mastoid air cells are clear. The orbits appear normal. There are no acute fractures of the calvaria or scalp swelling. Impression: No acute intracranial hemorrhage, skull fractures, or scalp swelling. ACT 112: Negative or not required by law. Electronically signed by: Luis Eduardo Cantu M.D. 07/22/2023 4:59 PM Hip/Pelvis X-Ray 07/22/23 16:20 XR hip RT 2V w pelvis CLINICAL HISTORY: fall, hip pain TECHNIQUE: 2 views of the right hip and single frontal view of the pelvis were obtained. Comparison: Comparison is made to hip radiograph 10/18/2022 FINDINGS: There is no evidence of an acute fracture. Mild degenerative changes are seen in the right hip. Patient is status post left hip total arthroplasty. No soft tissue abnormality is seen. IMPRESSION: Mild degenerative changes in the right hip joint without evidence of acute abnormality. ACT 112: Negative or not required by law. Electronically signed by: Luis Eduardo Cantu M.D. 07/22/2023 5:[address] 07/22/23 17:47 CT hip RT wo con CLINICAL HISTORY: fall, pain TECHNIQUE: Multidetector row helical CT of the right hip was performed without intravenous contrast. Coronal and sagittal reformations were obtained. Automated dose lowering techniques and/or adjustment according to patient size were utilized for this examination. CT DOSE: 657.16 mGy.cm Comparison: Comparison is made to right hip radiograph 07/22/2023 FINDINGS: There is a nondisplaced fracture of the superior and inferior pubic rami. Partially visualized, there may be a fracture of the pubic ramus as well. Mild degenerative changes are seen in the femoroacetabular joint. No femoral fracture is seen. No joint effusion is seen. The soft tissues are unremarkable. IMPRESSION: There are nondisplaced fractures of the superior and inferior pubic rami with possible involvement of the pubic symphysis as well. ACT 112: Negative or not required by law. Electronically signed by: Luis Eduardo Cantu M.D. 07/22/2023 6:51 PM Pending Results Patient Have Any Pending Studies at Discharge: No Discharge Instructions Given to Patient (Per Discharging Provider) Ms. Penn, You were admitted with pelvic fractures. You were seen by orthopedics who recommend discharge with partial weightbearing and following up with their office in 10-14 days. Please continue taking tylenol 1000mg three times a day scheduled and the prescribed oxycodone 5mg every 6 hours as needed to help with your pain. Please follow up with your primary care provider if your pain is not controlled or worsening. Please follow up with orthopedics as advised and for further recommendations. It was a pleasure taking care of you while you were here. Total Time Total Time Spent Total Time Spent (In Minutes): > 30 minutes
== END 2023-07-25 14:28 | DRG 536 ==
LOC: ED 16:07 → EDINP 19:29 → SUATTDRO 19:29 → 2N 07-23 19:03

== ENCOUNTER 2024-09-27 02:13 | Inpatient (IN) ==
--- OUTSIDE RECORDS SUMMARY | 2024-09-27 02:19 | External Medical Summary | Summary of Care ---
Author Name Unknown Organization [facility] Address [address] [address] Phone [phone] Care Team Providers Care Director Biostatistics Name Role Phone Nahid Rodgers MD Primary Care Provider + Reason for Visit * Reason Comments Other Pt here for a suspic ious mole. The mole is located on left eyebrow, pt noticed two months ago, growing in size, last office visit 03/10/24Hx of ANJR, SK * Evaluate & Treat - Unlimited Visits (Within 30 days (routine)) - Authorized Specialty Diagnoses / Procedures Referred By Gabriela lares Referred To Contact Dermatology Diagnoses Skin lesion Nahid Rodgers MD [address] [facility] [place] [address] Phone: tel: fax: Referral ID Status Reason Start Date Expiration Date Visits Requested Visits Authorized [id number] Authorized Specialty Services Required 09/20/[phone] Encounter Details Date Type Department Care Team (Late st Contact Info) Description 09/21/2024 9:40 AM EDT Office Visit D[facility]atology [facility] [address] [place] [place] [address] Neyda Mccann PA-C [address] [place] [address] Skin tumor* Allergies Active Allergy Reactions Criticality Noted Date Comments Acetylcysteine High 02/14/2022 Other reaction(s): caused chest tightness, PVB and AFib Alendronate Sodium 12/13/2008 Other reaction(s): GI Upset Moxifloxacin Hcl In Nacl 04/01/2016 Hallucinations Black [place] Pollen Allergy Skin Test Rash High 10/16/2018 [...] as of this encounter (statuses as of 09/22/2024) Medications Ventolin HFA 108 (90 Base) MCG/ACT Inhalation Aerosol Solution INHALE 2 PUFFS BY MOUTH EVERY 6 HOURS NEEDED FOR SHORTNESS OF BREATH OR WHEEZING Active Systane 0.4-0.3 % Ophthalmic Gel (Polyethyl Glycol-Propyl Glycol) Use as directed. Active Anoro Ellipta 62.5-25 MCG/INH Inhalation Aerosol Powder Breath Activated Inhale 1 Puff by mouth in the morning. Active Restasis 0.05 % Ophthalmic Emulsion (cycloSPORINE) Instill 1 Drop into both eyes in the morning and 1 Drop before bedtime. Active Vitamin D (Cholecalciferol) 25 MCG (1000 UT) Oral Capsule Take 4 Caps by mouth daily. 4 Cap Active Docusate Sodium 100 MG Oral Capsule Take 1 Capsule by mouth in the morning and 1 Capsule before bedtime. Active Centrum Silver 50+Women Oral Tablet Take 1 Tablet by mouth every other day. Active Denosumab 60 MG/ML Subcutaneous Solution Prefilled Syringe ([email or web address]) Inject 60 mg under the skin every 6 months. 022 Active Amoxicillin 500 MG Oral Tablet Before dental appointments 023 Active Levothyroxine Sodium 100 MCG Oral Tablet (Levoxyl)Indications:Ac quired hypothyroidism TAKE 1 TABLET BY MOUTH EVERY MORNING AT LEAST 30 MINUTES PRIOR TO BREAKFAST OR OTHER MEDICATIONS. 90 Tablet 3 024 Active Losartan Potassium 25 MG Oral Tablet (Cozaar)Indications:HTN , goal below 140/90 Take 1 Tablet by mouth at bedtime. 90 Tablet 1 025 Active Famotidine 20 MG Oral Tablet (Pepcid) Take 1 Tablet by mouth in the morning and 1 Tablet before bedtime. 180 Tablet 3 025 Active Sertraline HCl 25 MG Oral Tablet (Zoloft) Take 1 Tablet by mouth in the morning. 90 Tablet 3 025 Active Torsemide 5 MG Oral Tablet (Demadex)Indications:Ch ronic diastolic congestive heart failure (HCC) Take 0.5 Tablets by mouth in the morning. 45 Tablet 3 025 Active Additional Information Patient taking differently: 5 mgOralEVERY OTHER DAY, Reported on 09/20/2024 Rosuvastatin Calcium 5 MG Oral Tablet (Crestor)Indications:Pu re hypercholesterolemia TAKE 1 TABLET BY MOUTH EVERY FRIDAY, FRIDAY, AND FRIDAY 40 Tablet 3 025 Active Metoprolol Tartrate 50 MG Oral Tablet (Lopressor)Indications: Paroxysmal atrial fibrillation (HCC) TAKE 1 TABLET BY MOUTH EVERY MORNING AND TAKE 1/2 TABLET BY MOUTH EVERY EVENING 135 Tablet 3 025 Active Apixaban 5 MG Oral Tablet (Eliquis)Indications:Pa roxysmal atrial fibrillation (HCC),Chronic atrial fibrillation (HCC) TAKE 1 TABLET BY MOUTH TWO TIMES DAILY 180 Tablet 3 025 Active Acetaminophen 500 MG Oral Tablet (Tylenol) Take 1 Tablet by mouth in the morning and 1 Tablet before bedtime. Active Amoxicillin-Pot Clavulanate 875-125 MG Oral Tablet (Augmentin) Take 1 Tablet by mouth in the morning and 1 Tablet before bedtime. Do all this for 7 days. 14 Tablet 025 2024 Active documented as of this encounter (statuses as of 09/22/2024) Active Problems Problem Noted Date Diagnosed Date Prediabetes 03/26/2024 Hiatal hernia 10/10/2022 Renal calculus, left 10/10/2022 Restrictive lung disease 07/18/2022 Status post left knee replacement 10/24/2021 Pancreas cyst 09/05/2021 HTN, goal below 140/90 08/03/2021 Chronic diastolic congestive heart failure 10/20 Senile osteoporosis 07/28/2019 SWAIN (dyspnea on exertion) 07/28/2019 Hyperparathyroidism, primary 11/23/2018 Low back pain without sciatica 11/23/2018 Severe tricuspid 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 09/24/2018 emt intermediate current use of anticoagulant therapy 0 09/24/2018 History of compression fracture of spine 018 Major depressive disorder wi th single episode, in full remission 04/06/2018 Chronic atrial fibrillation 01/12/2018 S/P AV brayan ablation 12/13/2016 Cardiac pacemaker in situ 12/13/2016 Postoperative hypothyroidism 03/04/2016 Mixed hyperlipidemia Bronchiectasis documented as of this encounter (statuses as of 09/22/2024) Resolved Problems Problem Noted Date Diagnosed Date [...] 10/18/2020 GERD (gastroesophageal reflux disease) 07/28/2019 07/28/2019 Overview (02/15/2015): w/hiatal hernia & schatzki's ring; EGD with dilation 2013 Osteoporosis 07/28/2019 07/28/2019 Pre-diabetes 07/28/2019 01/27/2020 Chronic fatigue 07/28/2019 09/10/2023 Atelectasis of both lungs 07/28/2019 Asthma with [...] Chest discomfort 03/22/2015 09/22/2017 Concussion 12/12/2014 09/22/2017 Overview (02/15/2015): unwitnessed head injury following a fall Acquired hypothyroidism 12/13 Overview (02/15/2015): follicular adenoma left lobe removed 1975; on levothyroxine since Paroxysmal atrial fibrillation 01/15/2018 Overview (02/15/2015): chemical cardioversion 09/2014 after running of of atenolol Osteoarthritis 09/10/2023 Overview (02/15/2015): especially thumbs Microscopic hematuria 2017 documented as of this encounter (statuses as of 09/22/2024) Immunizations Name Administration Dates Next Due COVID-19 mRNA, LNP-s, No Pre serve, 2-Dose Series (Moderna) 09/15/2020,08/11/2020 COVID-19 mRNA, LNP-s, PF, 18 + or 6-11Yrs (Moderna) 08/14/2020,07/14/2020 COVID-19, MRNA-LNP, PF, 50 M CG/0.5 mL, 12 YRS AND ABOVE, IM (MODERNA-Spikevax) 05/22/2023 COVID-19, mRNA, LNP-s, PF, B ooster, 100mcg/0.5mg (Moderna) 10/18/2021,05/06/2021 Covid-19, Mrna, Lnp-s, Pf, B ivalent, 50 Mcg, IM, 12 yrs and above (Moderna) 04/10/2022 DTP Vaccine 02/19/2019 H1N1 2009 Influenza, IM 07/19/2009 Pneumococcal Conjugate Vacc, 13 Valent (Prevnar) 03/05/2016 Pneumococcal Polysaccharide PPV23 (Pneumovax) 01/29/2012,09/14/2002 RSV Vac., Recomb, Adjuvant, PF,0.5 Ml (Arexvy) 04/02/2023 Seasonal Influenza Vac., MDV , IM, 0.5 mL (Fluzone) 05/14/2010,03/24/2009,06/29/2008,06/26,05/25/2005,05/14/2004,05/12/2003 ,06/07/2002,05/26/2001,06/18/2000,04/14,06/12/1998,04/26/1993, 2 Seasonal Influenza Virus Vac cine, Unspecified Formulation 04/28/2019 Seasonal Influenza, High Dos e, Trivalent, PF, IM (Fluzone HD) 03/25/2024 Seasonal Influenza, PF, 6 M & above, IM , (FluLaval or Fluzone) 05/22/2017 Seasonal Influenza, Quadriva lent Hd (Fluzone Hd) 03/24/2023,04/22/2022,04/03/2021 Seasonal Influenza, Quadriva lent Hd, 65+ Yrs 05/07/2020 Seasonal Influenza, Quadriva lent, No Preserve, IM 04/20/2018,03/27/2016,04/27/2015 Seasonal Influenza, Trivalen t, (IIV3), PF, (Fluzone) 06/01/2012,05/30/2011 Seasonal Influenza, Trivalen t, Adjuvanted, 65+ YRS, PF, (Fluad) 04/25/2020 TD - Tetanus/Diptheria (ADULT) 05/21/1999,1991 TDAP [...] Date Recorded PHQ Adult Total Score 1 02/24/2024 Hunger Vital Sign Answer Date Recorded Within the past 12 months, y ou worried that your food would run out before you got the money to buy more. Never true 01/30/20 24 Within the past 12 months, t he food you bought just didn't last and you didn't have money to get more. Never true 01/30/2024 Childcare Answer Date Recorded Do you feel overwhelmed with taking care of a child, family member or friend? No 01/30/2024 Does your family need help f inding childcare? (Household - for ages 0-17 years) Not on file 01/30/2024 Clothing Answer Date Recorded Have you been unable to get clothing when it was really needed? No 01/30/2024 Is your family able to get c lothes or diapers when needed? (Household - for ages 0-17 years) Not on file 01/30/2024 Personal Safety Answer Date Recorded Do you feel unsafe or have concerns for your saf ety? No 01/30/2024 Do you have concerns for you r family's safety? (Household - for ages 0-17 years) Not on file 01/30/2024 Utilities Answer Date Recorded Do you have trouble paying y our heating, water, or electric bill? No 01/30/2024 Is your family able to pay t he heat, water, or electric bill? (Household - for ages 0-17 years) Not on file 01/30/2024 Does your family have access to good internet? (Household - for ages 0-17 years) Not on file 01/30/2024 Employment Status Answer Date Recorded Are you unemployed or without regular income? No 01/30/2024 Does the household have a re gular source of income? (Household - for ages 0-17 years) Not on file 01/30/2024 Social Connections Answer Date Recorded How often do you feel lonely or isolated from th ose around you? Rarely 01/30/2024 Financial Resource Strain Answer Date R ecorded Do you have any trouble payi ng for your medications, or do you think you might in the future? No 01/30/2024 Does your family have troubl e paying for medicine? (Household - for ages 0-17 years) Not on file 01/30/2024 Transportation Needs Answer Date Record ed Do you have trouble getting a ride to medical visits or work? (Adult - for ages 18 years and over) Not on file 01/30/2024 Does your family have a hard time getting a ride to doctors visits? (Household - for ages 0-17 years) Not on file 01/30/2024 Has lack of transportation k ept you from medical appointments, meetings, work, or from getting things needed for daily living? Check all that apply. No 01/30/2024 Do you (or your family) have trouble finding or paying for a ride (transportation)? (Household - for ages 0-17 years) Not on file 01/30/2024 Housing Stability Answer Date Recorded Do you currently live in a s helter or have no steady place to sleep at night? No 01/30/2024 Do you think you are at risk of becoming homeless? (Adult - for ages 18 years and over) Not on file 01/30/2024 Does your family worry about paying for your home or becoming homeless? (Household - for ages 0-17 years) Not on file 0 01/30/2024 Are you homeless or worried that you might be in the future? No 01/30/2024 Are you (or your family) richy eless or worried that you might be in the future? (Household - for ages 0-17 years) Not on file Food Insecurity Answer Date Recorded Do you need food for this week? No 01/30/2024 Are you able to get enough f ood for your family? (Household - for ages 0-17 years) Not on file 01/30/2024 Does your family need food t his week? (Household - for ages 0-17 years) Not on file 01/30/2024 Do you always have enough fo od for your family? (Household - for ages 0-17 years) Not on file 01/30/2024 Food Insecurity Answer Date Recorded Within the past 12 months, y ou worried that your food would run out before you got the money to buy more. Never true 01/30/20 24 Within the past 12 months, t he food you bought just didn't last and you didn't have money to get more. Never true 01/30/2024 Do you need food for this week? 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 Answer Date of Assessment Author No 02/24/2023 12:57 PM Celine Xavier RN * Are you blind or do you have serious difficulty seeing, even when wearing glasses? Answer Date of Assessment Author No 02/24/2023 12:57 PM Celine Xavier RN * Do you have serious difficulty walking or climbing stairs? (5 years old or older) Answer Date of Assessment Author No 02/24/2023 12:57 PM Celine Xavier RN * Do you have difficulty dressing or bathing? (5 years old or older) Answer Date of Assessment Author No 02/24/2023 12:57 PM Celine Xavier RN * Because of a physical, mental, or emotional condition, do you have difficulty doing errands alone such as visiting a doctors office or shopping? (15 years old or older) Answer Date of Assessment Author No 02/24/2023 12:57 PM Celine Xavier RN documented as of this encounter Mental Status * Because of a physical, mental, or emotional condition, do you have serious difficulty concentrating, remembering, or making decisions? (5 years old or older) Answer Entry Date Author No 02/24/2023 12:57 PM EDT Celine Ramsay RN documented in this encounter Progress Notes * Nahid Cao MD - 09/21/2024 9:06 PM EDT I have reviewed the charting notes and orders and associated images and agree with the assessment and plan of Neyda Mccann PA-C I was available for consultation during and after the visit Nahid Cao MD 09/21/2024 9:06 PM * Neyda Mccann PA-C - 09/21/2024 9:57 AM EDT SUBJECTIVE: Scaly papule above L eyebrow x a few months, Dr. Rodgers sent her to have it checked. Date Last Appointment: 03/10/2024 (in office), Visit date not found (telemedicine) OBJECTIVE: L suprabrow- keratotic pink papule. ASSESSMENT/PLAN: AK vs NMSC. Biopsy of the lesion noted above to establish and confirm diagnosis. The procedure, risks, benefits, alternatives and expected outcomes were discussed with the patient and consent was obtained. Time out called. Patient identified, procedure verified, site identified and verified. Patient and staff present in agreement. Area prepped with alcohol and anesthetized with 0.5% lidocaine with epinephrine at 1:200,000 concentration. Biopsy of lesion performed. 20% AlCl and bandaging applied. Specimen sent to pathology. Patient instructed in routine post-op care. Follow-up: as scheduled 09/21/2024 9:57 AM Neyda Mccann PA-C documented in this encounter Nursing Notes * Shauna Sierra MED ASSIST - 09/21/2024 9:34 AM EDT Chief Complaint Patient presents with Other Pt here for a suspicious mole. The mole is located on left eyebrow, pt noticed two months ago, growing in size, last office visit 03/10/24 Hx of JR BUSBY SK documented in this encounter Plan of Treatment Upcoming Encounters Date Type Department Care Team (Late st Contact Info) Description 10/01/2024 10:30 AM EDT Office Visit Cardiology, [facility] [address] [place] [address] Donte Chau DO [address] [place] [address] 12/08/2024 10:15 AM EDT Office Visit Orthopaedics [place], Amber [address] [place] [address] Marcus Collins MD [address] [place] [address] 01/28/2025 9:30 AM EDT Office Visit Cardiology, [facility] [address] [place] [address] Stacey Talbot CRNP [address] [place], [place] [id number] 02/14/2025 12:40 PM EDT Telemedicine Endocrinology [address] [place] [address] Henna Malhotra MD [address] [place] [address] [address] 02/28/2025 2:30 PM EDT Nurse Only Ancillary [facility] [place] [address] [place] [address] Davina, Nurse [facility] [address] [facility] [place] [address] 03/09/2025 3:00 PM EDT Office Visit Rheumatology [facility] [address] [place] [phone] Julia Conway CRNP [address] [place] [address] [place] [address] 05/11/2025 11:00 AM EDT Office Visit Urology, [facility] [address] [place] [address] Buddy Okeefe MD [address] [place] [address] 06/14/2025 2:40 PM EST Office Visit General Internal Medicine [facility] [address] [facility] [place] [address] Nahid Rodgers MD [address] [facility] [place] [address] Pending Results Name Type Priority Associated Diagnoses Date /Time SURGICAL PATHOLOGY Pathology Routine Skin tumor 09/21/2024 9:57 AM EDT Scheduled Procedures Name Priority Associated Diagnoses Date/Ti id ESOPHAGOGASTRODUODENOSCOPY ( EGD), FLEXIBLE, TRANSORAL, ENDOSCOPIC ULTRASOUND Recall Pancreatic cyst Health Maintenance Due Date Last Done Comments COVID-19 Vaccine ( season) 2024 03/12/2024, 05/22/2023, 04/10/2022, Additional history exists Adult Wellness Visit 02/23/2025 02/24/2024, 01/22/2023, 01/21/2022, Additional history exists Depression Monitoring 02/23/2025 02/24/2024 HbA1c 03/25/2025 03/25/2024, 01/2023, 07/22/2022, Additional history exists GFR 09/16/2025 09/16/2024, 04/14, 09/18/2023, Additional history exists TSH 09/16/2025 09/16/2024, 01/2024, 04/30/2023, Additional history exists DXA Scan 12/29/2025 12/30/2023, 08/14, 08/11/2019, Additional history exists Albumin/Creatinine Ratio 02/17/2026 023, 05/20/2022, 02/28/2021, Additional history exists DTap/Tdap Vaccines (4 - Td or Tdap) 02/19/2029 02/19/2019, 02/17/2019, 09/16/2008, Additional history exists Pneumococcal Vaccine: 50+ Years Completed 03/05/2016, 01/29/2012, 09/14/2002 Zoster Vaccines Completed 12/07/2019, 07/15, 04/16/2016 Influenza Vaccine (FLU shot) Completed 06/2024, 03/24/2023, 04/22/2022, Additional history exists VITAMIN D LEVEL ONCE IN A LIFETIME-USE SMARTSET# [id number] Completed 09/16/2024, 02/18/2024, 09/18/2023, Additional history exists HPV (Gardasil) Vaccine Aged Out No lo nger eligible based on patient's age to complete this topic Hepatitis B Vaccine Aged Out No longe r eligible based on patient's age to complete this topic MENINGOCOCCAL (MENACTRA/MENVEO) Aged Out No longer eligible based on patient's age to complete this topic Meningitis B Vaccine (Bexsero/Trumemba) Aged Out No longer eligible based on patient's age to complete this topic documented as of this encounter Medical Devices Implanted Type Area Load Dispatcher Local Device Identifier Shelf Expiration Date Model / Serial / Lot Hershey Mini Quick 2/0 [id number] - [id number] Implanted:Qty: 2 on 12/21/2018 by Marcus Collins MD at [facility] Left: Hand JNJ : DEPUY MITEK SURG PROD 08/13/2021 [id number] / / [id number] documented as of this encounter Procedures Procedure Name Priority Date/Time Associated Diagnosis Comments DERM IMAGE (SITE) Routine 09/21/2024 Skin tumor documented in this encounter Results * DERM IMAGE (SITE) (09/21/2024) 09/21/2024 Neyda Fernandez Ramy PAAbby DIGITAL PHOTOGRAPHY Fin al Result documented in this encounter Visit Diagnoses Diagnosis Skin tumor- Primary Neoplasm of uncertain behavior of skin documented in this encounter Advance Directives Documents on File Type Date Recorded Patient Digital Circuit Designer Expl anation Power of Breast Worker 02/20/2021 POWER OF A TTORNEY * Full Code (Latest Code Status on File) Date Activated Date Inactivated Comments 02/24/2023 10:27 AM 02/25/2023 3:07 PM This order reflects the patients wishes and were consensually agreed upon. Question Answer Comments Discussion of Advance Direct tammy occurred with: Not Discussed due to patient's condition * Full Code Date Activated Date Inactivated Comments 12/21/2018 9:23 AM 12/21/2018 4:19 PM This order r eflects the patients wishes and were consensually agreed upon. * Full Code Date Activated Date Inactivated Comments 09/07/2017 5:37 PM 09/10/2017 5:41 PM This order r eflects the patients wishes and were consensually agreed upon. * Full Code Date Activated Date Inactivated Comments 02/22/2017 7:48 PM 02/26/2017 12:47 AM This order reflects the patients wishes and were consensually agreed upon. Question Answer Comments Discussion of Advance Directives occurred with: Patient Does the patient have a Living Will? No Does the patient have Health Care Power of Attor meliton? No * Full Code Date Activated Date Inactivated Comments 12/02/2016 9:50 PM 12/03/2016 2:50 PM This order r eflects the patients wishes and were consensually agreed upon. Question Answer Comments Discussion of Advance Directives occurred with: Patient Does the patient have a Living Will? Yes, not cu rrently available Does the patient have Health Care Power of Breast Worker? Yes, not currently available Care Teams Director Biostatistics Relationship Specialty Start Date End Date Nahid Rodgers MD [address] [place] [address] PCP - General Internal Medicine 01/27/24 documented as of this encounter
--- OUTSIDE RECORDS SUMMARY | 2024-09-27 02:20 | External Medical Summary | Summary of Care ---
Author Name Unknown Organization [facility] Address [address] [address] Phone [phone] Care Team Providers Care Tooth Clerk Name Role Phone Nahid Rodgers MD Primary Care Provider + Reason for Visit * Reason Comments eRx-Medication Refill Encounter Details Date Type Department Care Team (Late st Contact Info) Description 09/13/2024 Refill Family Practice [facility] [address] [place] [address] Amor Ruggiero CRNP [address] [address] Angular cheilitis Allergies Active Allergy Reactions Criticality Noted Date Comments Acetylcysteine High 02/14/2022 Other reaction(s): caused chest tightness, PVB and AFib Alendronate Sodium 12/13/2008 Other reaction(s): GI Upset Moxifloxacin Hcl In Nacl 04/01/2016 Hallucinations Black [place] Pollen Allergy Skin Test Rash High 10/16/2018 [...] as of this encounter (statuses as of 09/17/2024) Medications Ventolin HFA 108 (90 Base) MCG/ACT Inhalation Aerosol Solution INHALE 2 PUFFS BY MOUTH EVERY 6 HOURS NEEDED FOR SHORTNESS OF BREATH OR WHEEZING 10/11/19 21 Active Systane 0.4-0.3 % Ophthalmic Gel (Polyethyl Glycol-Propyl Glycol) Use as directed. Act lauren Anoro Ellipta 62.5-25 MCG/INH Inhalation Aerosol Powder Breath Activated Inhale 1 Puff by mouth in the morning. 10/16/19 21 Active Restasis 0.05 % Ophthalmic Emulsion (cycloSPORINE) Instill 1 Drop into both eyes in the morning and 1 Drop before bedtime. Active Vitamin D (Cholecalciferol) 25 MCG (1000 UT) Oral Capsule Take 4 Caps by mouth daily. 4 Cap 02/20/20 21 Active Docusate Sodium 100 MG Oral Capsule Take 1 Capsule by mouth in the morning and 1 Capsule before bedtime. Active Centrum Silver 50+Women Oral Tablet Take by mouth. Activ e Acetaminophen 325 MG Oral Tablet (Tylenol) Take 1 Tablet by mouth every 6 hours as needed. Active Denosumab 60 MG/ML Subcutaneous Solution Prefilled Syringe (Prolia) 01/30/20 22 Active Amoxicillin 500 MG Oral Tablet Before dental appointments 08/20/19 23 Active Levothyroxine Sodium 100 MCG Oral Tablet (Levoxyl)Indicatio ns:Acquired hypothyroidism TAKE 1 TABLET BY MOUTH EVERY MORNING AT LEAST 30 MINUTES PRIOR TO BREAKFAST OR OTHER MEDICATIONS. 90 Tablet 3 11/04/19 24 Active Amoxicillin 500 MG Oral Capsule (Amoxil) TAKE 2 CAPSULES TO START, THEN TAKE 1 CAPSULE EVERY 8 HOURS UNTIL GONE 04/16/20 24 Active documented as of this encounter (statuses as of 09/17/2024) Active Problems Problem Noted Date Diagnosed Date Prediabetes 03/26/2024 Hiatal hernia 10/10/2022 Renal calculus, left 10/10/2022 Restrictive lung disease 07/18/2022 Status post left knee replacement 10/24/2021 Pancreas cyst 09/05/2021 HTN, goal below 140/90 08/03/2021 Chronic diastolic congestive heart failure 10/20 Senile osteoporosis 07/28/2019 SWAIN (dyspnea on exertion) 07/28/2019 Hyperparathyroidism, primary 11/23/2018 Low back pain without sciatica 11/23/2018 Severe tricuspid 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 09/24/2018 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 0 09/24/2018 History of compression fracture of spine 018 Major depressive disorder wi th single episode, in full remission 04/06/2018 Chronic atrial fibrillation 01/12/2018 S/P AV brayan ablation 12/13/2016 Cardiac pacemaker in situ 12/13/2016 Postoperative hypothyroidism 03/04/2016 Mixed hyperlipidemia Bronchiectasis documented as of this encounter (statuses as of 09/17/2024) Resolved Problems Problem Noted Date Diagnosed Date [...] 2014 Osteoporosis 07/28/2019 07/28/2019 Pre-diabetes 07/28/2019 01/27/2020 Chronic [...] as of this encounter (statuses as of 09/17/2024) Immunizations Name Administration Dates Next Due COVID-19 [...] Celine Ramsay RN documented in this encounter Miscellaneous Notes * Telephone Encounter - Kita Davis LPN - 09/17/2024 2:50 PM ESTRefused Prescriptions: Disp Refills Nystatin 344448 UNIT/GM External Cream 15 g 2 Sig: APPLY TO AFFECTED AREA(S) TWO TIMES DAILY FOR 2 WEEKSRefused By: Jordy DAVIS for Refusal: Unexpected request: Telephone review of med list * Telephone Encounter - Kel Joel - 09/13/2024 2:03 PM ESTPending Prescriptions: Disp Refills Nystatin [id number] UNIT/GM External Cream [Ph*15 g 2 Sig: APPLY TOAFFECTED AREA(S) TWO TIMES DAILY FOR 2 WEEKS documented in this encounter Plan of Treatment Upcoming Encounters Date Type Department Care Team (Late st Contact Info) Description 09/20/2024 3:00 PM EDT Office Visit General Internal Medicine [facility] [place] [address] [place], [place] [address] Nahid Rodgers MD [address] [place], [place] [address] 10/01/2024 10:30 AM EDT Office Visit Cardiology, [facility] [address] [facility] [place] [address] Donte Chau, [address] [place] [address] 12/08/2024 10:15 AM EDT Office Visit Orthopaedics [facility] [address] [place] [address] Marcus Collins MD [address] [place] [address] 01/28/2025 9:30 AM EDT Office Visit Cardiology, [facility] [address] [facility] [place] [address] Stacey Talbot CRNP [address] [facility] [place] [address] 02/14/2025 12:40 PM EDT Telemedicine Endocrinology [address] [place] [address] Henna Malhotra MD [address] [place] [address] 02/28/2025 2:30 PM EDT Nurse Only Ancillary [facility] [address] [place], [place] [address] Park, Nurse Annual Wellness [facility] [address] [place] [address] 03/09/2025 3:00 PM EDT Office Visit Rheumatology [facility] [address] [facility] [place] [phone] Julia Conway CRNP [address] [facility] [place] [address] Scheduled Procedures Name Priority Associated Diagnoses Date/Ti me ESOPHAGOGASTRODUODENOSCOPY ( EGD), FLEXIBLE, TRANSORAL, ENDOSCOPIC ULTRASOUND Recall Pancreatic cyst Health Maintenance Due Date Last Done Comments COVID-19 Vaccine ( season) 2024 03/12/2024, 05/22/2023, 04/10/2022, Additional history exists Adult Wellness Visit 02/23/2025 02/24/2024, 01/22/2023, 01/21/2022, Additional history exists Depression Monitoring 02/23/2025 02/24/2024 HbA1c 03/25/2025 03/25/2024, 080 01/2023, 07/22/2022, Additional history exists GFR 09/16/2025 09/16/2024, 04/14, 09/18/2023, Additional history exists TSH 09/16/2025 09/16/2024, 080 01/2024, 04/30/2023, Additional history exists DXA Scan [...] D LEVEL ONCE IN A LIFETIME-USE SMARTSET# [id number] Completed 09/16/2024, 02/18/2024, 09/18/2023, Additional history exists [...] this encounter Medical Devices Implanted Type Area Environmental Marketing Representative Device Identifier Shelf Expiration Date Model / Serial / Lot [place] Mini Quick 2/0 [id number] - [id number] Implanted:Qty: 2 on 12/21/2018 by Marcus Collins MD at OR [facility] [place] Left: Hand JNJ : DEPUY MITEK SURG PROD 08/13/2021 [id number] / / [id number] documented as of this encounter Visit Diagnoses Diagnosis Angular cheilitis Diseases of lips documented in this encounter Advance Directives Documents on File Type Date Recorded Patient Physical Chemistry Professor Expl anation Power of Hand Braille Transcriber 02/20/2021 POWER OF A TTORNEY * Full [...] patient have Health Care Power of Hand Braille Transcriber? Yes, not currently available Care Teams Tooth Clerk Relationship Specialty Start Date End Date Nahid Rodgers MD [address] [place] [address] PCP - General Internal Medicine 01/27/24 documented as of this encounter
--- OUTSIDE RECORDS SUMMARY | 2024-09-27 02:20 | External Medical Summary | Summary of Care ---
Author Name Unknown Organization [facility] Address [address] [address] Phone [phone] Care Team Providers Care Gas Distribution Plant Operator Name Role Phone Nahid Rodgers MD Primary [...] Diagnoses Skin lesion Nahid Rodgers MD [address] [facility] [place] [address] Phone: tel: fax: Referral ID Status Reason Start Date Expiration Date Visits Requested Visits Authorized [id number] Authorized Specialty Services Required 09/20/[phone] Encounter Details Date Type Department Care Team (Late st Contact Info) Description 09/21/2024 9:40 AM EDT Office Visit [facility]at[facility] [address] [place] [address] Neyda Mccann PA-C [address] [place] [address] Skin tumor* Allergies Active Allergy Reactions Criticality Noted Date Comments Acetylcysteine High 02/14/2022 Other reaction(s): caused chest tightness, PVB and AFib Alendronate Sodium 12/13/2008 Other reaction(s): GI Upset Moxifloxacin Hcl In Nacl 04/01/2016 Hallucinations Black [place] Pollen Allergy Skin Test Rash High 10/16/2018 [...] as of this encounter (statuses as of 09/21/2024) Medications Ventolin HFA 108 (90 Base) MCG/ACT [...] Denosumab 60 MG/ML Subcutaneous Solution Prefilled Syringe (ProlUsingMiles) Inject 60 mg under the skin every [...] as of this encounter (statuses as of 09/21/2024) Active Problems Problem Noted Date Diagnosed Date Prediabetes 03/26/2024 Hiatal hernia 10/10/2022 Renal calculus, left 10/10/2022 Restrictive lung disease 07/18/2022 Status post left knee replacement 10/24/2021 Pancreas cyst 09/05/2021 HTN, goal below 140/90 08/03/2021 Chronic diastolic congestive heart failure 10/20 Senile osteoporosis 07/28/2019 SWAIN (dyspnea on exertion) 07/28/2019 Hyperparathyroidism, primary 11/23/2018 Low back pain without sciatica 11/23/2018 Severe tricuspid 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 09/24/2018 [facility] current use of anticoagulant therapy 0 09/24/2018 History of compression fracture of spine 018 Major depressive disorder wi th single episode, in full remission 04/06/2018 Chronic atrial fibrillation 01/12/2018 S/P AV brayan ablation 12/13/2016 Cardiac pacemaker in situ 12/13/2016 Postoperative hypothyroidism 03/04/2016 Mixed hyperlipidemia Bronchiectasis documented as of this encounter (statuses as of 09/21/2024) Resolved Problems Problem Noted Date Diagnosed Date [...] as of this encounter (statuses as of 09/21/2024) Immunizations Name Administration Dates Next Due COVID-19 [...] documented in this encounter Progress Notes * Neyda Mccann PA-C - 09/21/2024 9:57 [...] size, last office visit 03/10/24 Hx of KEHINDE, ATN, SK documented in this encounter Plan of Treatment Upcoming Encounters Date Type Department Care Team (Late st Contact Info) Description 10/01/2024 10:30 AM EDT Office Visit Cardiology, [facility] [address] [place] [address] Donte Chau, [address] [place] [address] 12/08/2024 10:15 AM EDT Office Visit Orthopaedics [facility] [address] [place] [address] Marcus Collins MD [address] [place] [address] 01/28/2025 9:30 AM EDT Office Visit Cardiology, [facility] [address] [facility] [address] Stacey Talbot CRNP [address] [place], [place] [id number] 02/14/2025 12:40 PM EDT Telemedicine Endocrinology [address] [place] [address] Henna Malhotra MD [address] [place] [address] 02/28/2025 2:30 PM EDT Nurse Only Ancillary [facility] [address] [place] [address] [place], Nurse Annual Wellness [facility] [address] [place], [place] [address] 03/09/2025 3:00 PM EDT Office Visit Rheumatology [facility] [address] [facility] [phone] Julia Conway CRNP [address] [place] [address] [place] [address] 05/11/2025 11:00 AM EDT Office Visit Urology, [facility] [address] [place] [address] Buddy Okeefe MD [address] [place] [address] 06/14/2025 2:40 PM EST Office Visit General Internal Medicine [facility] [address] [facility] [place] [address] Nahid Rodgers MD [address] [facility] [place] [address] Pending Results Name Type Priority Associated Diagnoses [...] Depression Monitoring 02/23/2025 02/24/2024 HbA1c 03/25/2025 03/25/2024, 08/0 01/2023, 07/22/2022, Additional history exists GFR 09/16/2025 09/16/2024, 04/14, 09/18/2023, Additional history exists TSH 09/16/2025 09/16/2024, 08/0 01/2024, 04/30/2023, Additional history exists DXA Scan [...] D LEVEL ONCE IN A LIFETIME-USE SMARTSET# [id number] Completed 09/16/2024, 02/18/2024, 09/18/2023, Additional history exists [...] this encounter Medical Devices Implanted Type Area Yeast Supervisor Device Identifier Shelf Expiration Date Model / Serial / Lot [place] Mini Quick 2/0 [id number] - [id number] Implanted:Qty: 2 on 12/21/2018 by Marcus Collins MD at [place] [facility] [place] Left: Hand JNJ : DEPUY MITEK SURG PROD 08/13/2021 [id number] / / [id number] documented as of this encounter Visit Diagnoses Diagnosis 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 Yes, not currently available Care Teams Gas Distribution Plant Operator Relationship Specialty Start Date End Date Nahid Rodgers MD [address] [place] [address] PCP - General Internal Medicine 01/27/24 documented as of this encounter
--- OUTSIDE RECORDS SUMMARY | 2024-09-27 02:20 | External Medical Summary | Summary of Care ---
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 Name Role Phone Nahid Rodgers MD Primary Care Provider + Reason for Referral * Evaluate & Treat - Unlimited Visits (Within 30 days (routine)) - Authorized Specialty Diagnoses / Procedures Referred By Gabriela lares Referred To Contact Urology Diagnoses Microscopic hematuria Nahid Rodgers MD [address] [place] [address] Phone: tel: fax: Dwight Claudio MD [address] [place] [id number] Phone: tel: fax: Referral ID Status Reason Start Date Expiration Date Visits Requested Visits Authorized [id number] Authorized Specialty Services Required 09/20/2024 [id number] Question Answer Referral Priority Within 30 days (routine) Where should this appointment be scheduled? [facility] What is the patient being referred for? Hematuria What is Hematuria condition? Microscopic * Evaluate & Treat - Unlimited Visits (Within 30 days (routine)) - Authorized Specialty Diagnoses / Procedures Referred By Gabriela lares Referred To Contact Dermatology Diagnoses Skin lesion Nahid Rodgers MD [address] [place] [address] Phone: tel: fax: Referral ID Status Reason Start Date Expiration Date Visits Requested Visits Authorized [id number] Authorized Specialty Services Required 09/20/[id number] Question Answer Referral Priority Within 30 days (routine) Where should this appointment be scheduled? [facility] Are you referring the patient for Mohs Surgery and have a current positive skin cancer biopsy result? No What is the reason for the patient referral? Rash/Skin Check/Eval of Lesion or Mole Comments Lesion clinic Reason for Visit * Reason Comments Re-Check Routine check up Mole Check Above left eye - sta cathie it is itchy - started about 2 months ago Chest Tightness About 10 days ago - states nursing at [facility] told her she had crackles to left lobe Pain Soreness to ribs on left side - ongoing for several months Follow Up Right wrist cyst Encounter Details Date Type Department Care Team (Late st Contact Info) Description 09/20/2024 3:00 PM EDT Office Visit General Internal Medicine [facility] [address] [place] [address] Nahid Rodgers MD [address] [place] [address] HTN, goal below 140/90*; Chest tightness; Rib pain on left side; Bronchiectasis without complication (HCC); Hyperparathyroidism, primary (HCC); Major depressive disorder with single episode, in full remission (HCC); Chronic diastolic congestive heart failure (HCC); Chronic atrial fibrillation (HCC); Other bursal cyst of wrist, right; Skin lesion; Senile osteoporosis; Mixed hyperlipidemia; Microscopic hematuria; Prediabetes Allergies Active Allergy Reactions Criticality Noted Date Comments Acetylcysteine High 02/14/2022 Other reaction(s): caused chest tightness, PVB and AFib Alendronate Sodium 12/13/2008 Other reaction(s): GI Upset Moxifloxacin Hcl In Nacl 04/01/2016 Hallucinations Black [place] Pollen Allergy Skin Test Rash High 10/16/2018 [...] 1 Puff by mouth in the morning. 021 Active Restasis 0.05 % Ophthalmic Emulsion (cycloSPORINE) Instill 1 Drop into both eyes in the morning and 1 Drop before bedtime. Active Vitamin D (Cholecalciferol) 25 MCG (1000 UT) Oral Capsule Take 4 Caps by mouth daily. 4 Cap 021 Active Docusate Sodium 100 MG Oral Capsule Take 1 Capsule by mouth in the morning and 1 Capsule before bedtime. Active Centrum Silver 50+Women Oral Tablet Take 1 Tablet by mouth every other day. Active Denosumab 60 MG/ML Subcutaneous Solution Prefilled Syringe (Prolia) Inject 60 mg under the skin every [...] 7 days. 14 Tablet 025 2024 Active Acetaminophen 325 MG Oral Tablet (Tylenol) Take 1 Tablet by mouth every 6 hours as needed. 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 Answer Date of Assessment Author No 02/24/2023 12:57 PM EDT Celine Ramsay RN * Are you blind or do you have serious difficulty seeing, even when wearing glasses? Answer Date of Assessment Author No 02/24/2023 12:57 PM EDT Celine Ramsay RN * Do you have serious difficulty walking or climbing stairs? (5 years old or older) Answer Date of Assessment Author No 02/24/2023 12:57 PM EDT Celine Ramsay RN * Do you have difficulty dressing or bathing? (5 years old or older) Answer Date of Assessment Author No 02/24/2023 12:57 PM EDT Celine Ramsay RN * Because of a physical, mental, or emotional condition, do you have difficulty doing errands alone such as visiting a doctors office or shopping? (15 years old or older) Answer Date of Assessment Author No 02/24/2023 12:57 PM EDCeline Sr RN documented as of this encounter Mental Status * Because of a physical, mental, or emotional condition, do you have serious difficulty concentrating, remembering, or making decisions? (5 years old or older) Answer Entry Date Author No 02/24/2023 12:57 PM Celine Xavier RN documented in this encounter Progress Notes * Nahid Rodgers MD - 09/20/2024 3:25 PM EDT Chief Complaint Patient presents with Re-Check Routine check up Mole Check Above left eye - states it is itchy - started about 2 months ago Chest Tightness About 10 days ago - states nursing at [facility] told her she had crackles to left lobe Pain Soreness to ribs on left side - ongoing for several months Follow Up Right wrist cyst SUBJECTIVE: Catracho Penn is a 83 year old female with PMH as below who presents for follow up htn, depression, hyperparathyroidism, wrist cyst. Mood has been ok. Did see ortho for wrist cyst right side, monitoringfor now. Has had congestion (chest/sinus) 2 weeks w/o fevers. Chest was tight 10 days ago when awoke, went to clinic at her home, told had "crackles" in lung, but nothing done. No further chest tightness, but left ribs sore, has been for months. Scant cough. Also has skin lesion left eyebrow for 2 months. She sees cardiology end of months, follows with endocrine as well. No falls Patient Active Problem List Diagnosis Mixed hyperlipidemia Bronchiectasis (HCC) Postoperative hypothyroidism S/P AV brayan ablation Cardiac pacemaker in situ Chronic atrial fibrillation (HCC) History of compression fracture of spine Major depressive disorder with single episode, in full remission (HCC) Severe tricuspid 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 nursing home current use of anticoagulant therapy Hyperparathyroidism, primary (HCC) Low back pain without sciatica Senile osteoporosis SWAIN (dyspnea on exertion) Chronic diastolic congestive heart failure (HCC) HTN, goal below 140/90 Pancreas cyst Status post left knee replacement Restrictive lung disease Hiatal hernia Renal calculus, left Prediabetes Current Outpatient Medications Medication Sig Dispense Refill [...] Caps by mouth daily. 4 Cap 0 Docusate Sodium 100 MG Oral Capsule Take 1 Capsule by mouth in the morning and 1 Capsule before bedtime. Centrum Silver 50+Women Oral Tablet Take 1 Tablet by mouth every other day. Denosumab 60 MG/ML Subcutaneous Solution Prefilled Syringe (ProlEduKoala) Inject 60 mg under the skin every 6 months. Amoxicillin 500 MG Oral Tablet Before dental appointments Levothyroxine Sodium 100 MCG Oral Tablet (Levoxyl) TAKE 1 TABLET BY MOUTH EVERY MORNING AT LEAST 30MINUTES PRIOR TO BREAKFAST OR OTHER MEDICATIONS. 90 Tablet 3 Amoxicillin 500 MG Oral Capsule (Amoxil) TAKE 2 CAPSULES TO START, THEN TAKE 1 CAPSULE EVERY 8 HOURS UNTIL GONE Losartan Potassium 25 MG Oral Tablet (Cozaar) Take 1 Tablet by mouth at bedtime. 90 Tablet 1 Famotidine 20 MG Oral Tablet (Pepcid) Take 1 Tablet by mouth in the morning and 1 Tablet before bedtime. 180 Tablet 3 Sertraline HCl 25 MG Oral Tablet (Zoloft) Take 1 Tablet by mouth in the morning. 90 Tablet 3 Torsemide 5 MG Oral Tablet (Demadex) Take 0.5 Tablets by mouth in the morning. (Patient taking differently: Take 1 Tablet by mouth every other day.) 45 Tablet 3 Rosuvastatin Calcium 5 MG Oral Tablet (Crestor) TAKE 1 TABLET BY MOUTH EVERY FRIDAY, FRIDAY, 40 Tablet 3 Metoprolol Tartrate 50 MG Oral Tablet (Lopressor) TAKE 1 TABLET BY MOUTH EVERY MORNING AND TAKE 1/2TABLET BY MOUTH EVERY EVENING 135 Tablet 3 Apixaban 5 MG Oral Tablet (Eliquis) TAKE 1 TABLET BY MOUTH TWO TIMES DAILY 180 Tablet 3 Acetaminophen 500 MG Oral Tablet (Tylenol) Take 1 Tablet by mouth in the morning and 1 Tablet before bedtime. No current facility-administered medications for this visit. Review of patient's allergies indicates: Allergen Reactions Acetylcysteine Other reaction(s): caused chest tightness, PVB and AFib Black [place] Pollen Allergy Skin Test Rash Burning sensation [...] TO HIGH" Food (See Comments) Rash Walnuts Health Maintenance Due Topic Date Due COVID-19 Vaccine ( season) 2024 ROS: CONSTITUTIONAL: No fevers, sweats, or chills PULMONARY: No wheezing and No rales CARDIOVASCULAR: No shortness of breath, No dyspnea on exertion, No orthopnea, No paroxysmal nocturnal dyspnea, No edema, No palpitations, and No syncope GASTROINTESTINAL: No abdominal pain, No change in bowel habits, No significant heartburn, No significant change in appetite, No nausea, vomiting, diarrhea, or constipation, No hematemesis, No blood in stools or black tarry stools, No abdominal bloating or early satiety, and No dysphagia ALL OTHER SYSTEMS NEGATIVE I reviewed social, PMH, PSH, and family history and updated where needed. 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 Daughter and Son are local. Social Needs Financial Resource Strain: Low Risk (01/30/2024) Financial Resource Strain Do you have any trouble paying for your medications, or do you think you might in the future? (Adult - for ages 18 years and over): No Does your family have trouble paying for medicine? (Household - for ages 0-17 years): Not on file Food Insecurity: No Food Insecurity (01/30/2024) Food Insecurity Worried About Running Out of Food in the Last Year: Never true Ran Out of Food in the Last Year: Never true Do you need food for this week? (Adult - for ages 18 years and over): No Transportation Needs: No Transportation Needs (01/30/2024) Transportation Needs Do you have trouble getting a ride to medical visits or work? (Adult - for ages 18 years and over):Not on file Does your family have a hard time getting a ride to doctors visits? (Household - for ages 0-17 years): Not on file Has lack of transportation kept you from medical appointments, meetings, work, or from getting things needed for daily living? Check all that apply. (Adult - for ages 18 years and over): No Do you (or your family) have trouble finding or paying for a ride (transportation)? (Household - for ages 0-17 years): Not on file Social Connections: Socially Integrated (01/30/2024) Social Connections How often do you feel lonely or isolated from those around you? (Adult - for ages 18 years and over): Rarely Housing Stability: Low Risk (01/30/2024) Housing Stability Do you currently live in a fpc or have no steady place to sleep at night? (Adult - for ages 18 years and over): No Do you think you are at risk of becoming homeless? (Adult - for ages 18 years and over): Not on file Does your family worry about paying for your home or becoming homeless? (Household - for ages 0-17 years): Not on file Are you homeless or worried that you might be in the future? (Adult - for ages 18 years and over): No Are you (or your family) homeless or worried that you might be in the future? (Household - for ages0-17 years): Not on file Past Medical History: Diagnosis Date Age-related osteoporosis without current pathological fracture 07/28/2019 Anemia during childhood Asymptomatic bilateral carotid artery stenosis 03/22/2015 Bronchiectasis (HCC) Chronic atrial fibrillation (HCC) 01/12/2018 Chronic diastolic congestive heart failure (HCC) 04/01/2017 Chronic fatigue Clotting disorder (HCC) Taking Eliquis Colon polyps 2013, 2017 Complete heart block (HCC) Concussion 12/2014 unwitnessed head injury following a fall COPD, moderate (HCC) 10/20/2020 Coronary artery disease 1986 Dysphagia Schatzkys ring, hiatal hernia Ectopic atrial tachycardia (HCC) 2015 Follicular adenoma of thyroid gland GERD (gastroesophageal reflux disease) w/hiatal hernia & schatzki's ring; EGD with dilation 2013 Hernia Hiatal hernia diagnosed 2012 HTN, goal below 140/90 08/03/2021 Hyperlipidemia Hyperparathyroidism (HCC) Hypothyroidism follicular adenoma left lobe removed 1975; on levothyroxine since Kidney disease diagnosed as moderate Kidney disease, chronic, stage III (GFR 30-59 ml/min) (HCC) 01/24/2020 Per CKD protocol Microscopic hematuria Myalgia 02/13/2019 Osteoarthritis especially thumbs Osteoporosis Pancreas cyst 09/05/2021 Pancreatitis Twice, following gallbladder surgery; corrected Pancreatitis due to biliary obstruction Paroxysmal atrial fibrillation (HCC) chemical cardioversion 09/2014 after running of of atenolol Pericardial effusion 02/22/2017 Pre-diabetes 07/28/2019 Prediabetes 04/23/2021 Restrictive lung disease 07/18/2022 Secondary hyperparathyroidism, non-renal (HCC) 10/20/2020 Severe tricuspid 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 09/24/2018 Past Surgical History: Procedure Laterality Date ABDOMEN SURGERY PROCEDURE NEC sphincterectomy after gall bladder surgery ARTHROPLASTY KNEE TOTAL Left 2016 BREAST LUMP EDU. 1976 removal; benign COLONOSCOPY 07/02/2014 COLONOSCOPY, DIAGNOSTIC (RECTUM) 01/22/2018 adenomatous polyps / [facility] CYSTOSCOPY 10/2014 x 3; for microscopic hematuria EGD, FLEXIBLE, DIAGNOSTIC 01/22/2018 normal bx, Schatzki ring, hiatal hernia / [facility] EGD, FLEXIBLE, DIAGNOSTIC 09/04/2021 Erosive gastropathy, hiatal hernia / ESOPHAGOGASTRODUODENOSCOPY (EGD), FLEXIBLE, TRANSORAL, DIAGNOSTIC performed by Kaylyn Phillips MD at ENDOSCOPY [facility] EGD, W/ENDOSCOPIC US 09/04/2021 pancreatic cysts (IPMN) / ESOPHAGOGASTRODUODENOSCOPY (EGD), FLEXIBLE, TRANSORAL, ENDOSCOPIC ULTRASOUND performed by Kaylyn Phillips MD at ENDOSCOPY [facility] EXPLORE PARATHYROID GLANDS N/A 02/24/2023 PARATHYROIDECTOMY performed by Nahid Guaman MD at OR [facility] INCISION OF HEART SAC FOR DRAINAGE N/A 09/08/2017 CREATION PERICARDIAL WINDOW performed by Marques Garcia MD at OR [facility] KNEE ARTHROSCOPY/SURGERY Left LIGATE/CUT OVIDUCT(S) 1983 NAIL BED, PERMANENT REMOVAL Bilateral 10/08/2018 EXCISION NAIL PARTIAL OR COMPLETE INGROWN performed by Jenna Guillermo DPM at OR [facility] PACEMAKER INSERTION, EXISTING MULTIPLE LEAD 11/2016 PARTIAL REMOVAL OF THYROID LOBE 1975 REMOVAL OF APPENDIX 1956 REMOVAL OF TONSILS, UNDER AGE 11 1943 REMOVE CATARACT, INSERT LENS PROSTH Right 09/30/2018 REMOVE GALLBLADDER REPAIR/REVISE WRIST JOINT(S) Left 12/21/2018 ARTHROPLASTY INTERPOSITION CARPAL JOINTS performed by Marcus Collins MD at OR [facility] SINUS SURGERY PROCEDURE NEC 2010 TOTAL HIP REPLACEMENT & PROSTHESIS Left 10/18/2022 UPPER GI ENDOSCOPY 08/02/2013 Family History Problem Relation Name Age of Onset Heart failure Mother Clare Chávez Dementia Mother Clare Chávez 70s or early 8s Heart Disorder Mother Clare Chávez heart failure Arthritis Mother Clare Chávez Osteo Mental Disorder Mother Clare Chávez Dementia Eye Problems Mother Clare Chávez cataracts Coronary Artery disease Father Albino WilkinsLianne Chávez 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 Allergies Father Albino WilkinsLianne Chávez shellfish Heart attack Father Albino WilkinsLianne Chávez 50 Heart Disorder Father Albino Alma Chávez 50 ruptured aottic artery Hypertension Father Albino WilkinsLianne Chávez Lung Disorder Father Albino Alma Chávez smoker Arthritis Father Albino WilkinsLianne Chávez Osteo Mental Disorder Father Albino Alma Chávez Depression Cancer Father Albino Chávez lung Stroke Father Albino Alma Chávez Heart Disorder Sister Carri Chávez if a massive heart attack, 05/2023 Arthritis Sister Carri Chávez if massive heart attack Thyroid Disorder Sister Carri Chávez Endocrine Disorder Sister Carri Chávez Adrenal insufficiency Arthritis Brother Albino Chávez GI problems Brother Albino Chávez hiatal hernia, GERD Hypertension Brother Albino Chávez Breast Cancer Grandmother (Maternal) Taina Lemus Alcohol and Other Disorders Associated Grandmother (Maternal) Taina Lemus Cancer Grandmother (Maternal) Taina Lemus metastacized No Known Problems Daughter Allergies Son seasonal allergies No Known Problems Son Genitourinary Disorder Uncle (Unspecified) hiatal hernia Coronary Artery disease Uncle (Unspecified) Heart attack Uncle (Unspecified) OBJECTIVE: PHYSICAL EXAM: BP 140/86 | Pulse 90 | Temp 98.2 F (36.8 C) (Tympanic) | Resp 14 | Wt 199 lb 11.2 oz (90.6 kg) | SpO2 96% Comment: room air | BMI 31.28 kg/m | BSA 2.07 m General: alert, healthy, and no distress Head: Normocephalic, No masses, lesions, or abnormalities then raised samuels lesion above eye lid, noopening or bleeding Eye Exam: conjunctiva are pink and non-injected, sclera clear Ears: External ears normal, Canals clear, TM's Normal Heart: regular rate & rhythm, no murmur, no gallops, PMI non-displaced, S-1 normal, and S-2 normal Lungs: lungs clear to auscultation, +tender lateral mid ribs left side Psych: normal affect, no flight of ideas or tangential thought, good eye contact, no pressured speech Ext: small cyst right wrist, seems stable I reviewed last lipid, gfr, cbc, tsh, lft ASSESSMENT: (I10) HTN, goal below 140/90 (primary encounter diagnosis) (R07.89) Chest tightness (R07.81) Rib pain on left side (J47.9) Bronchiectasis without complication (HCC) (E21.0) Hyperparathyroidism, primary (HCC) (F32.5) Major depressive disorder with single episode, in full remission (HCC) (I50.32) Chronic diastolic congestive heart failure (HCC) (I48.20) Chronic atrial fibrillation (HCC) (M71.331) Other bursal cyst of wrist, right (L98.9) Skin lesion (M81.0) Senile osteoporosis (E78.2) Mixed hyperlipidemia (R31.29) Microscopic hematuria (R73.03) Prediabetes PLAN: HTN, goal below 140/90 (Primary) Cont metoprolol., losartan, torsemide Sees cardiology 2 weeks Chest tightness - XR CHEST 2 VIEWS; Future; Expected date: 09/20/2024 Check image given congestion, assess pneumonia Follow Rib pain on left side Await image Bronchiectasis without complication (HCC) Cont inhalers Hyperparathyroidism, primary (HCC) Sees endocrine Major depressive disorder with single episode, in full remission (HCC) Cont sertraline Chronic diastolic congestive heart failure (HCC) Cont torsemide Chronic atrial fibrillation (HCC) Cont metoprolol, apixiban Other bursal cyst of wrist, right F/u ortho Skin lesion - DERMATOLOGY REFERRAL OP Senile osteoporosis On prolia Mixed hyperlipidemia Rosuvastatin Microscopic hematuria - ADULT/PEDS UROLOGY REFERRAL OP As due for f/u Prediabetes - HEMOGLOBIN A1C; Future; Expected date: 03/23/2025 Recheck next labs Follow Up: Return in about 6 months (around 03/23/2025), or if symptoms worsen or fail to improve. Nahid Rodgers MD documented in this encounter Nursing Notes * Dwight Vargas RN - 09/20/2024 3:08 PM EDT Chief Complaint Patient presents with Re-Check Routine check up Mole Check Above left eye - states it is itchy - started about 2 months ago Chest Tightness About 10 days ago - states nursing at [facility] told her she had crackles to left lobe Pain Soreness to ribs on left side - ongoing for several months Follow Up Right wrist cyst documented in this encounter Miscellaneous Notes * Addendum Note - Nahid Rogders MD - 09/21/2024 8:25 AM EDTAddended by: NAHID RODGERS on: 09/21/2024 08:25 AM Modules accepted: Orders documented in this encounter Plan of Treatment Upcoming Encounters Date Type Department Care Team (Late st Contact Info) Description 09/21/2024 9:40 AM EDT Office Visit Dermatology [facility] [address] [place] [address] Neyda Mccann PA-C [address] [facility] [place] [address] 10/01/2024 10:30 AM EDT Office Visit Cardiology, [facility] [address] [place] [address] Donte Chau DO [address] [place] [address] 12/08/2024 10:15 AM EDT Office Visit Orthopaedics [place] C[facility] [address] [place] [address] Marcus Collins MD [address] [place], [place] [id number] 01/28/2025 9:30 AM EDT Office Visit Cardiology, [facility] [address] [place] [address] Stacey Talbot CRNP [address] [place], [place] [id number] 02/14/2025 12:40 PM EDT Telemedicine Endocrinology [address] [place] [phone] Henna Malhotra MD [address] [place] [address] [address] 02/28/2025 2:30 PM EDT Nurse Only Ancillary [facility] [address] [place] [address] Park, Nurse Annual Wellness [facility] [address] [facility] [place] [address] 03/09/2025 3:00 PM EDT Office Visit Rheumatology [facility] [address] [facility] [phone] Julia Conway CRNP [facility] [place] [address] 05/11/2025 11:00 AM EDT Office Visit Urology, [facility] [address] [facility] [place] [address] Buddy Okeefe MD [address] [place] [address] 06/14/2025 2:40 PM EST Office Visit General Internal Medicine [facility] [address] [facility] [place] [address] Nahid Rodgers MD [address] [facility] [place] [address] Scheduled Orders Name Type Priority Associated Diagnoses Orde r Schedule HEMOGLOBIN A1C Lab Routine Prediabetes Expected: 03/23/2025 (Approximate), Expires: 09/20/2025 Scheduled Procedures Name Priority Associated Diagnoses Date/Ti me ESOPHAGOGASTRODUODENOSCOPY ( EGD), FLEXIBLE, TRANSORAL, ENDOSCOPIC ULTRASOUND Recall Pancreatic cyst Scheduled Referrals Name Type Priority Associated Diagnoses Orde r Schedule DERMATOLOGY REFERRAL OP Referral Within 30 days (routine) Skin lesion Ordered: 09/20/2024 ADULT/PEDS UROLOGY REFERRAL OP Referral Within 30 days (routine) Microscopic hematuria Ordered: 09/20/2024 Health Maintenance Due Date Last Done Comments [...] D LEVEL ONCE IN A LIFETIME-USE SMARTSET# [id number] Completed 09/16/2024, 02/18/2024, 09/18/2023, Additional history exists [...] this encounter Medical Devices Implanted Type Area Security Coordinator Device Identifier Shelf Expiration Date Model / Serial / Lot [place] Mini Quick 2/0 [id number] - [id number] Implanted:Qty: 2 on 12/21/2018 by Marcus Collins MD at OR [facility] Left: Hand JNJ : DEPUY MITEK SURG PROD 08/13/2021 [id number] / / [id number] documented as of this encounter Results * XR CHEST 2 VIEWS (09/20/2024 3:41 PM EDT) Anatomical Region Laterality Modality Chest Computed Radiogr aphy 09/20/2024 5:01 PM EDT Impressions 09/20/2024 4:58 PM EDT IMPRESSION No evidence of acute cardiopulmonary disease. Narrative 09/20/2024 4:58 PM EDT EXAM XR CHEST 2 VIEWS-09/20/2024 3:41 pm HISTORY Congestion and chest tightness. COMPARISON Chest radiograph 04/19/2024. TECHNIQUE PA and lateral views of the chest are examined. FINDINGS The lungs are clear. There is no pleural effusion. The pulmonary vasculature and cardiomediastinal silhouette are within normal limits. Dual chamber left chest wall permanent pacemaker appears intact and stable. No acute osseous finding. Procedure Note Jerald Bhatti MD - 09/20/2024 EXAM XR CHEST 2 VIEWS-09/20/2024 3:41 pm HISTORY Congestion and chest tightness. COMPARISON Chest radiograph 04/19/2024. TECHNIQUE PA and lateral views of the chest are examined. FINDINGS The lungs are clear. There is no pleural effusion. The pulmonaryvasculature and cardiomediastinal silhouette are within normal limits.Dual chamber left chest wall permanent pacemaker appears intact andstable. No acute osseous finding. IMPRESSION IMPRESSION No evidence of acute cardiopulmonary disease. Nahid Rodgers MD RADIOLOGY (RAD GENERAL) Final Result documented in this encounter Visit Diagnoses Diagnosis HTN, goal below 140/90- Primary Unspecified essential hypertension Chest tightness Other chest pain Rib pain on left side Chest pain, unspecified Bronchiectasis without complication (HCC) Bronchiectasis without acute exacerbation Hyperparathyroidism, primary (HCC) Primary hyperparathyroidism Major depressive disorder with single episode, in full remission (HCC) Chronic diastolic congestive heart failure (HCC) Chronic diastolic heart failure Chronic atrial fibrillation (HCC) Atrial fibrillation Other bursal cyst of wrist, right Skin lesion Unspecified disorder of skin and subcutaneous tissue Senile osteoporosis Mixed hyperlipidemia Microscopic hematuria Prediabetes Other abnormal glucose Chest tightness Other chest pain documented in this encounter Advance Directives Documents on File Type Date Recorded Patient Wind Tunnel Mechanic Expl anation Power of Press Washer 02/20/2021 POWER OF A TTORNEY * Full [...] the patient have Health Care Power of Press Washer? Yes, not currently available Care Teams Bonded Strand Operator Relationship Specialty Start Date End Date Nahid Rodgers MD [address] [place] [address] PCP - General Internal Medicine 01/27/24 documented as of this encounter
--- OUTSIDE RECORDS SUMMARY | 2024-09-27 02:20 | External Medical Summary | Summary of Care ---
Author Name Unknown Organization [facility] Address [address] [address] Phone [phone] Care Team Providers Care Net Developer Name Role Phone Nahid Rodgers MD Primary Care Provider + Encounter Details Date Type Department Care Team (Late st Contact Info) Description 09/20/2024 Orders Only PATIENT PORTAL DO NOT DELETE THIS DEPT USED BY [place] [id number] Allergies Active Allergy Reactions Criticality Noted Date Comments Acetylcysteine High 02/14/2022 Other reaction(s): caused chest tightness, PVB and AFib Alendronate Sodium 12/13/2008 Other reaction(s): GI Upset Moxifloxacin Hcl In Nacl 04/01/2016 Hallucinations Black Renovo Pollen Allergy Skin Test Rash High 10/16/2018 [...] as of this encounter (statuses as of 09/20/2024) Medications Ventolin HFA 108 (90 Base) MCG/ACT [...] Silver 50+Women Oral Tablet Take by mouth. Act lauren Acetaminophen 325 MG Oral Tablet (Tylenol) Take 1 Tablet by mouth every 6 hours as needed. Active Denosumab 60 MG/ML Subcutaneous Solution Prefilled Syringe (Prolia) 022 Active Amoxicillin 500 MG Oral Tablet Before dental appointments 023 Active Levothyroxine Sodium 100 MCG Oral Tablet (Levoxyl)Indications:Ac quired hypothyroidism TAKE 1 TABLET BY MOUTH EVERY MORNING AT LEAST 30 MINUTES PRIOR TO BREAKFAST OR OTHER MEDICATIONS. 90 Tablet 3 024 Active Amoxicillin 500 MG Oral Capsule (Amoxil) TAKE 2 CAPSULES TO START, THEN TAKE 1 CAPSULE EVERY 8 HOURS UNTIL GONE 024 Active Losartan Potassium 25 MG Oral [...] the morning. 45 Tablet 3 025 Active Rosuvastatin Calcium 5 MG Oral Tablet [...] TIMES DAILY 180 Tablet 3 025 Active documented as of this encounter (statuses as of 09/20/2024) Active Problems Problem Noted Date Diagnosed Date Prediabetes 03/26/2024 Hiatal hernia 10/10/2022 Renal calculus, left 10/10/2022 Restrictive lung disease 07/18/2022 Status post left knee replacement 10/24/2021 Pancreas cyst 09/05/2021 HTN, goal below 140/90 08/03/2021 Chronic diastolic congestive heart failure 10/20 Senile osteoporosis 07/28/2019 SWAIN (dyspnea on exertion) 07/28/2019 Hyperparathyroidism, primary 11/23/2018 Low back pain without sciatica 11/23/2018 Severe tricuspid 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 09/24/2018 long term care phlebotomist current use of anticoagulant therapy 0 09/24/2018 History of compression fracture of spine 018 Major depressive disorder wi th single episode, in full remission 04/06/2018 Chronic atrial fibrillation 01/12/2018 S/P AV brayan ablation 12/13/2016 Cardiac pacemaker in situ 12/13/2016 Postoperative hypothyroidism 03/04/2016 Mixed hyperlipidemia Bronchiectasis documented as of this encounter (statuses as of 09/20/2024) Resolved Problems Problem Noted Date Diagnosed Date [...] as of this encounter (statuses as of 09/20/2024) Immunizations Name Administration Dates Next Due COVID-19 [...] 01/30/2024 Does the household have a re lar source of income? (Household - for ages [...] 12:57 PM EDT Celine Ramsay RN documented as of this encounter Mental Status * Because of a physical, mental, or emotional condition, do you have serious difficulty concentrating, remembering, or making decisions? (5 years old or older) Answer Entry Date Author No 02/24/2023 12:57 PM Celine Xavier RN documented in this encounter Plan of Treatment Upcoming Encounters Date Type Department Care Team (Late st Contact Info) Description 09/20/2024 3:00 PM EDT Office Visit General Internal Medicine [facility] [address] [facility] [place] [address] Nahid Rodgers MD [address] [place] [address] 10/01/2024 10:30 AM EDT Office Visit Cardiology, [facility] [address] [address] Donte Chau DO [address] [address] 12/08/2024 10:15 AM EDT Office Visit Orthopaedics [place], [place] [address] [facility] [place] [address] Marcus Collins MD [address] [place] [address] 01/28/2025 9:30 AM EDT Office Visit Cardiology, [facility] 132 [place] [address] Stacey Talbot CRNP [address] [facility] [place] [address] 02/14/2025 12:40 PM EDT Telemedicine Endocrinology [address] [place] [address] [address] Henna Malhotra MD [address] [place] [id number] 02/28/2025 2:30 PM EDT Nurse Only Ancillary [facility] [address] [place] [address] [place], Nurse Annual Wellness Scenery [address] [place] [address] 03/09/2025 3:00 PM EDT Office Visit Rheumatology [facility] 132 [facility] [place] [phone] Julia Conway CRNP [address] [facility] [place] [address] Scheduled Procedures Name Priority Associated Diagnoses Date/Ti [...] D LEVEL ONCE IN A LIFETIME-USE SMARTSET# [id number] Completed 09/16/2024, 02/18/2024, 09/18/2023, Additional history exists [...] this encounter Medical Devices Implanted Type Area Clinical Application Manager Device Identifier Shelf Expiration Date Model / Serial / Lot [place] Mini Quick 2/0 [id number] - [id number] Implanted:Qty: 2 on 12/21/2018 by Marcus Collins MD at OR [facility] Left: Hand JNJ : DEPUY MITEK SURG PROD 08/13/2021 [id number] / / [id number] documented as of this encounter Advance Directives Documents on File Type Date Recorded Patient Section Maintainer Expl anation Power of Molding Line Assistant 02/20/2021 POWER OF A TTORNEY * Full [...] the patient have Health Care Power of Molding Line Assistant? Yes, not currently available Care Teams Net Developer Relationship Specialty Start Date End Date Nahid Rodgers MD 200 [place] [address] PCP - General Internal Medicine 01/27/24 documented as of this encounter
--- OUTSIDE RECORDS SUMMARY | 2024-09-27 02:20 | External Medical Summary | Summary of Care ---
Author Name Unknown Organization [facility] Address [address] [address] Phone [phone] Care Team Providers Care Stick Puller Name Role Phone Nahid Rodgers MD Primary Care Provider + Encounter Details Date Type Department Care Team (Late st Contact Info) Description 09/17/2024 Telephone Endocrin[address] [place] [place] [address] Henna Malhotra MD [address] [place] [address] Allergies Active Allergy Reactions Criticality Noted Date Comments Acetylcysteine High 02/14/2022 Other reaction(s): caused chest tightness, PVB and AFib Alendronate Sodium 12/13/2008 Other reaction(s): GI Upset Moxifloxacin Hcl In Nacl 04/01/2016 Hallucinations Black Bar[place] Pollen Allergy Skin Test Rash High 10/16/2018 [...] Denosumab 60 MG/ML Subcutaneous Solution Prefilled Syringe ([employer]) Inject 60 mg under the skin every [...] Severe tricuspid 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 09/24/2018 long term care administrator current use of anticoagulant therapy 0 09/24/2018 [...] encounter Miscellaneous Notes * Telephone Encounter - Destiny Rice CMA - 09/20/2024 3:48 PM EDT This TE was routed blank. Will closeDestiny CMA 09/20/2024 3:49 PM documented in this encounter Plan of Treatment Upcoming Encounters Date Type Department Care Team (Late st Contact Info) Description 09/21/2024 9:40 AM EDT Office Visit Dermatology [place] Ghosh [address] [address] Neyda Mccann PA-C [address] [place] [address] 10/01/2024 10:30 AM EDT Office Visit Cardiology, [facility] 132 [place] [address] Donte Chau DO 132 [facility] [place] [address] 12/08/2024 10:15 AM EDT Office Visit Orthopaedics Debora Douglas [address] [place] [address] Marcus Collins MD [address] [place], [place] [id number] 01/28/2025 9:30 AM EDT Office Visit Cardiology, [facility] 132 [place] [address] Stacey Talbot CRNP [address] [place] [address] 02/14/2025 12:40 PM EDT Telemedicine Endocrinology [address] [place] [place] [address] Henna Malhotra MD [address] [place] [id number] 02/28/2025 2:30 PM EDT Nurse Only Ancillary [facility] [place] [address] [place] [address] Davina, Nurse Annual Wellness [facility] [address] [place] [address] 03/09/2025 3:00 PM EDT Office Visit Rheumatology [facility] [address] [place] [address] Julia Conway CRNP [address] [facility] [place] [address] 05/11/2025 11:00 AM EDT Office Visit Urology, [facility] [address] [place] [address] Buddy Okeefe MD [address] [place] [address] 06/14/2025 2:40 PM EST Office Visit General Internal Medicine [facility] 200 [facility] [place], [place] [address] Nahid Rodgers MD 200 [facility] [place] [address] Scheduled Procedures Name Priority Associated Diagnoses Date/Ti [...] D LEVEL ONCE IN A LIFETIME-USE SMARTSET# [id number] Completed 09/16/2024, 02/18/2024, 09/18/2023, Additional history exists [...] this encounter Medical Devices Implanted Type Area Supervisor Cold Rolling Device Identifier Shelf Expiration Date Model / Serial / Lot [place] Mini Quick 2/0 [id number] - [id number] Implanted:Qty: 2 on 12/21/2018 by Marcus Collins MD at OR [facility] Left: Hand JNJ : DEPUY MITEK SURG PROD 08/13/2021 [id number] / / [id number] documented as of this encounter Advance Directives Documents on File Type Date Recorded Patient Applied Behavior Specialist Expl anation Power of Electrostatic Painter 02/20/2021 POWER OF A TTORNEY * Full [...] the patient have Health Care Power of Electrostatic Painter? Yes, not currently available Care Teams Stick Puller Relationship Specialty Start Date End Date Nahid Rodgers MD [address] [place] [address] PCP - General Internal Medicine 01/27/24 documented as of this encounter
--- OUTSIDE RECORDS SUMMARY | 2024-09-27 02:20 | External Medical Summary | Summary of Care ---
Author Name Unknown Organization [facility] Address [address] [place] [address] Phone [phone] Care Team Providers Care Robotic Welding Operator Name Role Phone Nahid Rodgers MD Primary Care Provider + Reason for Referral * Evaluate & Treat - Unlimited Visits (Within 30 days (routine)) - Authorized Specialty Diagnoses / Procedures Referred By Gabriela lares Referred To Contact Urology Diagnoses Microscopic hematuria Nahid Rodgers MD [address] [place] [address] Phone: tel: fax: Dwight Claudio MD [address] [place] [address] Phone: tel: fax: Referral ID Status Reason Start Date Expiration Date Visits Requested Visits Authorized [id number] Authorized Specialty Services Required 09/20/2024 999 999 [...] Diagnoses Skin lesion Nahid Rodgers MD [address] [place] [address] Phone: tel: fax: Referral ID Status Reason Start Date Expiration Date Visits Requested Visits Authorized [id number] Authorized Specialty Services Required 09/20/2024 999 999 [...] 10 days ago - states nursing at [facility] told her she had crackles to left lobe Pain Soreness to ribs on left side - ongoing for several months Follow Up Right wrist cyst Encounter Details Date Type Department Care Team (Late st Contact Info) Description 09/20/2024 3:00 PM EDT Office Visit General Internal Medicine [facility] Davina [address] [place] [address] Nahid Rodgers MD 200 [place] [address] HTN, goal below 140/90*; Chest tightness; Rib [...] Moxifloxacin Hcl In Nacl 04/01/2016 Hallucinations Black Custer Pollen Allergy Skin Test Rash High 10/16/2018 [...] NEEDED FOR SHORTNESS OF BREATH OR WHEEZING 021 Active Systane 0.4-0.3 % Ophthalmic Gel (Polyethyl [...] morning and 1 Tablet before bedtime. Active Acetaminophen 325 MG Oral Tablet (Tylenol) Take 1 Tablet by mouth every 6 hours as needed. 2024 Disconti nued(Med ication List Clean Up) documented as of this encounter (statuses as [...] without sciatica 11/23/2018 Severe tricuspid 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 09/24/2018 long-term current use of anticoagulant therapy 0 09/24/2018 [...] , IM, 0.5 mL (Fluzone) 05/14/2010,03/24/2009,06/29/2008,06/26,05/25/2005,05/14/2004,05/12/2003 ,06/07/2002,05/26/2001,06/18/2000,04/14,06/12/1998,04/26/1993, Seasonal Influenza Virus Vac cine, Unspecified Formulation [...] of Assessment Author No 02/24/2023 12:57 PM EDCeilne Sr RN documented as of this encounter Mental Status * Because of a physical, mental, or emotional condition, do you have serious difficulty concentrating, remembering, or making decisions? (5 years old or older) Answer Entry Date Author No 02/24/2023 12:57 PM EDCeline Sr RN documented in this encounter Progress Notes * Nahid Rodgers MD - 09/20/2024 3:25 PM EDT Chief Complaint Patient presents with Re-Check Routine check up Mole Check Above left eye - states it is itchy - started about 2 months ago Chest Tightness About 10 days ago - states nursing at [facility] told her she had crackles to [...] in full remission (HCC) Severe tricuspid 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 long-term current use of anticoagulant therapy Hyperparathyroidism, primary [...] Denosumab 60 MG/ML Subcutaneous Solution Prefilled Syringe ([employer]) Inject 60 mg under the skin every [...] caused chest tightness, PVB and AFib Black Custer Pollen Allergy Skin Test Rash Burning sensation [...] file Social History Narrative Lives alone at [facility]. Daughter and Son are local. [...] Stability Do you currently live in a fci or have no steady place to sleep [...] COPD, moderate (HCC) 10/20/2020 Coronary artery disease 1987 Dysphagia Schatzkys ring, hiatal hernia Ectopic atrial [...] DIAGNOSTIC (RECTUM) 01/22/2018 adenomatous polyps / [facility] CYSTOSCOPY 10/2014 x 3; for microscopic hematuria EGD, FLEXIBLE, DIAGNOSTIC 01/22/2018 normal bx, Schatzki ring, hiatal hernia / [facility] EGD, FLEXIBLE, DIAGNOSTIC 09/04/2021 Erosive gastropathy, hiatal hernia / ESOPHAGOGASTRODUODENOSCOPY (EGD), FLEXIBLE, TRANSORAL, DIAGNOSTIC performed by Kaylyn Phillips MD at ENDOSCOPY [facility] EGD, W/ENDOSCOPIC US 09/04/2021 pancreatic cysts (IPMN) / ESOPHAGOGASTRODUODENOSCOPY (EGD), FLEXIBLE, TRANSORAL, ENDOSCOPIC ULTRASOUND performed by Kaylyn Phillips MD at ENDOSCOPY [facility] EXPLORE PARATHYROID GLANDS N/A 02/24/2023 PARATHYROIDECTOMY performed by Nahid Guaman MD [place] [facility] INCISION OF HEART SAC FOR DRAINAGE N/A 09/08/2017 CREATION PERICARDIAL WINDOW performed by Marquse Garcia MD at [place] [facility] KNEE ARTHROSCOPY/SURGERY Left LIGATE/CUT OVIDUCT(S) 1983 NAIL BED, PERMANENT REMOVAL Bilateral 10/08/2018 EXCISION NAIL PARTIAL OR COMPLETE INGROWN performed by Jenna Guillermo DPM at [facility] PACEMAKER INSERTION, EXISTING MULTIPLE LEAD 11/2016 PARTIAL REMOVAL OF THYROID LOBE 1976 REMOVAL OF APPENDIX 1956 REMOVAL OF TONSILS, UNDER AGE 11 1943 REMOVE CATARACT, INSERT LENS PROSTH Right 09/30/2018 REMOVE GALLBLADDER REPAIR/REVISE WRIST JOINT(S) Left 12/21/2018 ARTHROPLASTY INTERPOSITION CARPAL JOINTS performed by Marcus Collins MD at [place] [facility] SINUS SURGERY PROCEDURE NEC 2010 TOTAL HIP [...] Chávez cataracts Coronary Artery disease Father Albino Chávez 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 Allergies Father Albino Yeungamerico shellfish Heart attack Father Albino Navarrokrzysztofoff 50 Heart Disorder Father Albino Navarrokrzysztofamerico 50 ruptured aottic artery Hypertension Father Albino Yeungamerico Lung Disorder Father Albino Yeungamerico smoker Arthritis Father Albino Chávez Osteo Mental Disorder Father Albino Navarrokrzysztofoff Depression Cancer Father Albino Marquez Kyler lung Stroke Father Albino Navarrokrzysztofamerico Heart Disorder Sister Carri Chávez if a massive heart attack, 05/2023 Arthritis Sister Carri Chávez if massive heart attack Thyroid Disorder Sister Carri Chávez Endocrine Disorder Sister Carri Chávez Adrenal insufficiency Arthritis Brother Albino Lindsay Kyler GI problems Brother Albino Lindsay Kyler hiatal hernia, GERD Hypertension Brother Albino Chávez [...] 10 days ago - states nursing at [facility] told her she had crackles to left lobe Pain Soreness to ribs on left side - ongoing for several months Follow Up Right wrist cyst documented in this encounter Plan of Treatment Upcoming Encounters Date Type Department Care Team (Late st Contact Info) Description 09/21/2024 9:40 AM EDT Office Visit Dermatology [facility] Davina [place] [address] [place] [address] [address] Neyda Mccann PA-C 200 [facility] [place] [address] 10/01/2024 10:30 AM EDT Office Visit Cardiology, [facility] 132 [place] [address] Donte Chau, 132 [facility] [place] [address] 12/08/2024 10:15 AM EDT Office Visit Orthopaedics Debora Safford 16 [place] [address] Marcus Collins MD 16 [place] [address] 01/28/2025 9:30 AM EDT Office Visit Cardiology, [facility] [address] [place] [address] Stacey Talbot CRNP 400 [place], [place] [id number] 02/14/2025 12:40 PM EDT Telemedicine Endocrinology [address] [place] [address] Henna Malhotra MD [address] [place] [id number] 02/28/2025 2:30 PM EDT Nurse Only Ancillary [facility] [address] [place] [address] Park, Nurse Annual Wellness [facility] [address] [place], [place] [address] 03/09/2025 3:00 PM EDT Office Visit Rheumatology [facility] 132 [facility] [phone] Julia Conway CRNP [address] [place] [address] [place] [address] 05/11/2025 11:00 AM EDT Office Visit Urology, [facility] [address] [place] [address] Buddy Okeefe MD [address] [place] [address] 06/14/2025 2:40 PM EST Office Visit General Internal Medicine [facility] 200 [facility] [place] [address] Nahid Rodgers MD 200 [facility] [place] [address] Scheduled Orders Name Type Priority Associated Diagnoses [...] D LEVEL ONCE IN A LIFETIME-USE SMARTSET# [id number] Completed 09/16/2024, 02/18/2024, 09/18/2023, Additional history exists [...] this encounter Medical Devices Implanted Type Area Human Intelligence Device Identifier Shelf Expiration Date Model / Serial / Lot C[place] Mini Quick 2/0 [id number] - [id number] Implanted:Qty: 2 on 12/21/2018 by Marcus Collins MD [place] [facility] Left: Hand JNJ : DEPUY MITEK SURG PROD 08/13/2021 [id number] / / [id number] documented as of this encounter Results * [...] acute cardiopulmonary disease. Nahid Rodgers MD RADIOLOGY ([facility]) Final Result documented in this encounter [...] Documents on File Type Date Recorded Patient Replenisher Expl anation Power of Canvas Cutter Machine 02/20/2021 POWER OF A TTORNEY * Full [...] the patient have Health Care Power of Canvas Cutter Machine? Yes, not currently available Care Teams Robotic Welding Operator Relationship Specialty Start Date End Date Nahid Rodgers MD 200 [facility] [place] [address] PCP - General Internal Medicine 01/27/24 documented as of this encounter
--- OUTSIDE RECORDS SUMMARY | 2024-09-27 02:20 | External Medical Summary | Summary of Care ---
Author Name Unknown Organization [facility] Address [address] [address] Phone [phone] Care Team Providers Care Vp Strategy Name Role Phone Nahid Rodgers MD Primary [...] Diagnoses Skin lesion Nahid Rodgers MD 200 [facility] [place] [address] Phone: tel: fax: Referral ID Status Reason Start Date Expiration Date Visits Requested Visits Authorized [id number] Authorized Specialty Services Required 09/20/[phone] Encounter Details Date Type Department Care Team (Late st Contact Info) Description 09/21/2024 9:40 AM EDT Office Visit Dermatology [facility] [address] [place] [address] Neyda Mccann PA-C [address] [place] [address] [address] Skin tumor* Allergies Active Allergy Reactions Criticality Noted Date Comments Acetylcysteine High 02/14/2022 Other reaction(s): caused chest tightness, PVB and AFib Alendronate Sodium 12/13/2008 Other reaction(s): GI Upset Moxifloxacin Hcl In Nacl 04/01/2016 Hallucinations Black [place] Pollen Allergy Skin Test Rash High 10/16/2018 [...] Denosumab 60 MG/ML Subcutaneous Solution Prefilled Syringe ([employer]) Inject 60 mg under the skin every [...] without sciatica 11/23/2018 Severe tricuspid 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 09/24/2018 penitentiary current use of anticoagulant therapy 0 09/24/2018 [...] AM EDT Office Visit Cardiology, [facility] 132 [facility] [place] [address] Donte Chau, 132 [facility] [place] [address] 12/08/2024 10:15 AM EDT Office Visit Orthopaedics [facility] [address] [place] [address] Marcus Collins MD 16 [place] [address] 01/28/2025 9:30 AM EDT Office Visit Cardiology, [facility] 132 [facility] [place] [address] Stacey Talbot CRNP 400 [place], [place] [id number] 02/14/2025 12:40 PM EDT Telemedicine Endocrinology [address] [place] [address] Henna Malhotra MD [address] [place] [address] 02/28/2025 2:30 PM EDT Nurse Only Ancillary [facility] [address] [place] [address] Park, Nurse Annual Wellness [facility] [address] [place], [place] [address] 03/09/2025 3:00 PM EDT Office Visit Rheumatology [facility] 132 [facility] [place] [phone] Julia Conway CRNP [address] [place] [address] [place] [address] 05/11/2025 11:00 AM EDT Office Visit Urology, [facility] [address] [place] [address] Buddy Okeefe MD [address] [place] [address] 06/14/2025 2:40 PM EST Office Visit General Internal Medicine [facility] 200 [facility] [place] [address] Nahid Rodgers MD 200 [facility] [place] [address] Pending Results Name Type Priority Associated Diagnoses [...] D LEVEL ONCE IN A LIFETIME-USE SMARTSET# 07352 Completed 09/16/2024, 02/18/2024, 09/18/2023, Additional history exists [...] this encounter Medical Devices Implanted Type Area Particle Board Supervisor Device Identifier Shelf Expiration Date Model / Serial / Lot [place] Mini Quick 2/0 [id number] - [id number] Implanted:Qty: 2 on 12/21/2018 by Marcus Collins MD at OR [facility] Left: Hand JNJ : DEPUY MITEK SURG PROD 08/13/2021 [id number] / / [id number] documented as of this encounter Visit Diagnoses Diagnosis Skin tumor- Primary Neoplasm of uncertain behavior of skin documented in this encounter Advance Directives Documents on File Type Date Recorded Patient Clam Bed Worker Expl anation Power of Family Service Worker 02/20/2021 POWER OF A TTORNEY * [...] the patient have Health Care Power of Family Service Worker? Yes, not currently available Care Teams Vp Strategy Relationship Specialty Start Date End Date Nahid Rodgers MD 200 [facility] [place] [address] PCP - General Internal Medicine 01/27/24 documented as of this encounter
--- OUTSIDE RECORDS SUMMARY | 2024-09-27 02:21 | External Medical Summary ---
Author Name Unknown Address Unknown Organization [facility] [place] [address] Laboratory Report Ordering Provider Test Date Status DO BENRUBY 09/16/2024 07:36:28 Final Observation Date Value Abnormality Reference (Units ) Status SYNC LEUKOCYTES IN BLOOD BY AUTOMATED COUNT 09/16/2024 07:36:28 5.62 4.00-10.80 (K/uL) Final Segs 09/16/2024 07:36:28 57.9 40.0-75.0 (%) Final Lymphs % 09/16/2024 07:36:28 31.3 18.0-42.0 (%) Final Monos 09/16/2024 07:36:28 9.1 1.0-11.0 (%) Final Eosinophils 09/16/2024 07:36:28 1.2 0.0-6.0 (%) Final Basos 09/16/2024 07:36:28 0.5 0.0-2.0 (%) Final Absolute Segs 09/16/2024 07:36:28 3.25 1.80-7.70 (K/uL) Final Lymphs, absolute 09/16/2024 07:36:28 1.76 1.00-4.80 (K/ul) Final Monos, Abs 09/16/2024 07:36:28 0.51 0.00-1.10 (K/uL) Final Eos, Abs 09/16/2024 07:36:28 0.07 0.00-0.70 (K/uL) Final Basos, Abs 09/16/2024 07:36:28 0.03 0.00-0.20 (K/uL) Final Performing Location [facility] [place] [address]
--- OUTSIDE RECORDS SUMMARY | 2024-09-27 02:21 | External Medical Summary | Summary of Care ---
Author Name Unknown Organization [facility] Address [address] [place] [address] Phone [phone] Care Team Providers Care Grinder Machine Setter Name Role Phone Nahid Rodgers MD Primary Care Provider + Reason for Visit * Reason Onset Date Comments Medication Refill 09/15/2024 Encounter Details Date Type Department Care Team (Late st Contact Info) Description 09/15/2024 Refill [facility] 200 [facility] [place] [address] Nahid Rodgers MD 200 [place] [address] Allergies Active Allergy Reactions Criticality Noted Date Comments Acetylcysteine High 02/14/2022 Other reaction(s): caused chest tightness, PVB and AFib Alendronate Sodium 12/13/2008 Other reaction(s): GI Upset Moxifloxacin Hcl In Nacl 04/01/2016 Hallucinations Black [place] Pollen Allergy Skin Test Rash High 10/16/2018 [...] as of this encounter (statuses as of 09/16/2024) Medications Ventolin HFA 108 (90 Base) MCG/ACT [...] Oral Tablet Before dental appointments 023 Active Torsemide 5 MG Oral Tablet (Demadex)Indications:Ch ronic diastolic congestive heart failure (HCC) One tablet as needed daily for swelling and shortness of breath. 90 Tablet 3 024 Active Additional Information Patient taking differently: 2.5 mg Oral Daily(AM), One tablet as needed daily for swelling and shortness of breath., Reported on 02/03/2024 Rosuvastatin Calcium 5 MG Oral Tablet (Crestor)Indications:Pu re hypercholesterolemia TAKE 1 TABLET BY MOUTH EVERY FRIDAY, FRIDAY, AND FRIDAY 40 Tablet 3 04/23/2 024 Active Metoprolol Tartrate 50 MG Oral Tablet (Lopressor)Indications: Paroxysmal atrial fibrillation (HCC) TAKE 1 TABLET BY MOUTH EVERY MORNING AND TAKE 1/2 TABLET BY MOUTH EVERY EVENING 135 Tablet 3 024 Active Levothyroxine Sodium 100 MCG Oral Tablet (Levoxyl)Indications:Ac quired hypothyroidism TAKE 1 TABLET BY MOUTH EVERY MORNING AT LEAST 30 MINUTES PRIOR TO BREAKFAST OR OTHER MEDICATIONS. 90 Tablet 3 024 Active Apixaban 5 MG Oral Tablet (Eliquis)Indications:Ch ronic atrial fibrillation (HCC),Paroxysmal atrial fibrillation (HCC) TAKE 1 TABLET BY MOUTH TWO TIMES DAILY 180 Tablet 3 024 Active Amoxicillin 500 MG [...] the morning. 90 Tablet 3 025 Active Famotidine 20 MG Oral Tablet (Pepcid) Take 1 Tablet by mouth in the morning and 1 Tablet before bedtime. 180 Tablet 3 024 2024 Disconti nued(Ref ill) Sertraline HCl 25 MG Oral Tablet (Zoloft) Take 1 Tablet by mouth in the morning. 90 Tablet 1 024 2024 Disconti nued(Ref ill) documented as of this encounter (statuses as of 09/16/2024) Active Problems Problem Noted Date Diagnosed Date Prediabetes 03/26/2024 Hiatal hernia 10/10/2022 Renal calculus, left 10/10/2022 Restrictive lung disease 07/18/2022 Status post left knee replacement 10/24/2021 Pancreas cyst 09/05/2021 HTN, goal below 140/90 08/03/2021 Chronic diastolic congestive heart failure 10/20 Senile osteoporosis 07/28/2019 SWAIN (dyspnea on exertion) 07/28/2019 Hyperparathyroidism, primary 11/23/2018 Low back pain without sciatica 11/23/2018 Severe tricuspid 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 09/24/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 0 09/24/2018 History of compression fracture of spine 018 Major depressive disorder wi th single episode, in full remission 04/06/2018 Chronic atrial fibrillation 01/12/2018 S/P AV brayan ablation 12/13/2016 Cardiac pacemaker in situ 12/13/2016 Postoperative hypothyroidism 03/04/2016 Mixed hyperlipidemia Bronchiectasis documented as of this encounter (statuses as of 09/16/2024) Resolved Problems Problem Noted Date Diagnosed Date [...] as of this encounter (statuses as of 09/16/2024) Immunizations Name Administration Dates Next Due COVID-19 [...] of Assessment Author No 02/24/2023 12:57 PM JAY JAYT Celine Ramsay RN * Because of a [...] Celine Xavier RN documented in this encounter Miscellaneous Notes * Telephone Encounter - Jenna Zhang, [facility] - 09/16/2024 2:53 PM ESTSigned Prescriptions: Disp Refills Famotidine 20 MG Oral Tablet (Pepcid) 180 Ta*3 Sig: Take 1 Tablet by mouth in the morning and 1 Tablet before bedtime.Authorizing Provider: NAHID RODGERS User: JENNA ZHANG Sertraline HCl 25 MG Oral Tablet (Zoloft) 90 Tab*3 Sig: Take 1 Tabletby mouth in the morning.Authorizing Provider: NAHID RODGERS User: JENNA ZHANG documented in this encounter Plan of Treatment Upcoming Encounters Date Type Department Care Team (Late st Contact Info) Description 09/20/2024 3:00 PM EDT Office Visit [facility] 200 [facility] [place] [address] Nahid Rodgers MD 200 [place] [address] 10/01/2024 10:30 AM EDT Office Visit Cardiology, [facility] 132 [place] [address] Donte Chau DO 132 [place] [address] 12/08/2024 10:15 AM EDT Office Visit Orthopaedics Paulina Cazares 16 [place] [address] Marcus Collins MD 16 [place] [address] 01/28/2025 9:30 AM EDT Office Visit Cardiology, [facility] [address] [place] [address] Stacey Talbot CRNP 400 [facility] [place] [address] 02/14/2025 12:40 PM EDT Telemedicine Endocrinology [address] [place] [address] Henna Malhotra MD [address] [place] [address] 02/28/2025 2:30 PM EDT Nurse Only Ancillary Scenery [facility] [address] [place] [address] Park, Nurse Annual Wellness Scenery [address] [place] [address] 03/09/2025 3:00 PM EDT Office Visit Rheumatology [facility] 132 [facility] [place] [address] Julia Conway CRNP [address] [facility] [place] [address] Scheduled Procedures Name Priority Associated Diagnoses Date/Ti [...] D LEVEL ONCE IN A LIFETIME-USE SMARTSET# 48463 Completed 09/16/2024, 02/18/2024, 09/18/2023, Additional history exists [...] this encounter Medical Devices Implanted Type Area Principal Technical Writer Device Identifier Shelf Expiration Date Model / Serial / Lot [place] Mini Quick 2/0 [id number] - [id number] Implanted:Qty: 2 on 12/21/2018 [place] Collins [place] [facility] [place]: Hand JNJ : DEPUY MITEK SURG PROD 08/13/2021 [id number] / / [id number] documented as of this encounter Advance Directives Documents on File Type Date Recorded Patient Door Core Assembler Expl anation Power of Dry Yard Worker 02/20/2021 POWER OF A TTORNEY * [...] the patient have Health Care Power of Dry Yard Worker? Yes, not currently available Care Teams Grinder Machine Setter Relationship Specialty Start Date End Date Nahid Rodgers MD 200 [place] [address] PCP - General Internal Medicine 01/27/24 documented as of this encounter
--- OUTSIDE RECORDS SUMMARY | 2024-09-27 02:21 | External Medical Summary | Summary of Care ---
Author Name Unknown Organization [facility] Address [address] [place] [address] Phone [phone] Care Team Providers Care Cooling System Operator Name Role Phone Nahid Rodgers MD Primary Care Provider + Reason for Visit * Reason Onset Date Comments Medication Refill 09/15/2024 Encounter Details Date Type Department Care Team (Late st Contact Info) Description 09/15/2024 Refill General Internal Medicine [facility] 200 [place] [address] Priya Anthony MD 200 [place] [address] HTN, goal below 140/90 Allergies Active Allergy Reactions Criticality Noted Date Comments Acetylcysteine High 02/14/2022 Other reaction(s): caused chest tightness, PVB and AFib Alendronate Sodium 12/13/2008 Other reaction(s): GI Upset Moxifloxacin Hcl In Nacl 04/01/2016 Hallucinations Black [place] Pollen Allergy Skin Test Rash High 10/16/2018 [...] FRIDAY, FRIDAY, AND FRIDAY 40 Tablet 3 024 Active Metoprolol Tartrate 50 MG Oral [...] 1 CAPSULE EVERY 8 HOURS UNTIL GONE Active Losartan Potassium 25 MG Oral Tablet [...] Tablet 1 024 2024 Disconti nued(Ref ill) Losartan Potassium 25 MG Oral Tablet (Cozaar)Indications:HTN , goal below 140/90 Take 1 Tablet by mouth at bedtime. 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 0 [...] Entry Date Author No 02/24/2023 12:57 PM Celien Xavier RN documented in this encounter Miscellaneous Notes * Telephone Encounter - Jenna Zhang [facility] - 09/16/2024 2:52 PM ESTSigned Prescriptions: Disp Refills Losartan Potassium 25 MG Oral Tablet (Coza*90 Tab*1 Sig: Take 1 Tablet by mouth at bedtime.Authorizing Provider: Sanjuana ANTHONY User: JENNA ZHANG--------- documented in this encounter Plan of Treatment Upcoming Encounters Date Type Department Care Team (Late st Contact Info) Description 09/20/2024 3:00 PM EDT Office Visit General Internal Medicine [facility] 200 [place] [address] Nahid Rodgers MD 200 [place] [address] 10/01/2024 10:30 AM EDT Office Visit Cardiology, [facility] 132 [place] [address] Donte Chau DO 132 [place] [address] 12/08/2024 10:15 AM EDT Office Visit Orthopaedics [place] [place] 16 [place] [address] Marcus Collins MD 16 [place] [address] 01/28/2025 9:30 AM EDT Office Visit Cardiology, [facility] 132 [place] [address] Stacey Talbot CRNP 400 [facility] [place] [address] 02/14/2025 12:40 PM EDT Telemedicine Endocrinology [address] [place] [address] Henna Malhotra MD [address] [place] [address] 02/28/2025 2:30 PM EDT Nurse Only Ancillary Scenery [facility] [address] [place] [address] Park, Nurse Annual Wellness Scen[address] [place] [address] 03/09/2025 3:00 PM EDT Office Visit Rheumatology [facility] [address] [place] [phone] Julia Conway CRNP [address] [facility] [place] [address] Scheduled Procedures Name Priority Associated Diagnoses Date/Ti [...] D LEVEL ONCE IN A LIFETIME-USE SMARTSET# [id number] Completed 09/16/2024, 02/18/2024, 09/18/2023, Additional history exists [...] this encounter Medical Devices Implanted Type Area Salt Maker Device Identifier Shelf Expiration Date Model / Serial / Lot [place] Mini Quick 2/0 [id number] - [id number] Implanted:Qty: 2 on 12/21/2018 by Marcus Collins MD at [place] [facility] [place] Left: Hand JNJ : DEPUY MITEK SURG PROD 08/13/2021 [id number] / / [id number] documented as of this encounter Visit Diagnoses Diagnosis HTN, goal below 140/90 Unspecified essential hypertension documented in this encounter Advance Directives Documents on File Type Date Recorded Patient Legal Financial Specialist Expl anation Power of Maintenance Data Analyst 02/20/2021 POWER OF A TTORNEY * Full [...] the patient have Health Care Power of Maintenance Data Analyst? Yes, not currently available Care Teams Cooling System Operator Relationship Specialty Start Date End Date Nahid Rodgers MD 200 [facility] [place] [address] PCP - General Internal Medicine 01/27/24 documented as of this encounter
--- OUTSIDE RECORDS SUMMARY | 2024-09-27 02:21 | External Medical Summary ---
Author Name Unknown Address Unknown Organization [facility] [place] [address] Laboratory Report Ordering Provider Test Date Status [place] FLOOD 09/16/2024 07:36:28 Final Observation Date Value Abnormality Reference (Units ) Status Phosphate 09/16/2024 07:36:28 3.6 2.5-4.8 (m g/dL) Final Performing Location [facility] [place] [address]
--- OUTSIDE RECORDS SUMMARY | 2024-09-27 02:21 | External Medical Summary ---
Author Name Unknown Address Unknown Organization K01:[facility] [place] - [address] [place] [address] Laboratory Report Ordering Provider Test Date Status [place] FLOOD 09/16/2024 07:36:28 Final Observation Date Value Abnormality Reference (Units ) Status Parathyrin.intact [Mass/volume] in Serum or Plasma 09/16/2024 07:36:28 116 Above high normal 15-65 (pg/mL) Final Performing Location [facility] [place] - [address] [place] [address]
--- OUTSIDE RECORDS SUMMARY | 2024-09-27 02:21 | External Medical Summary | Summary of Care ---
Author Name Unknown Organization [facility] Address [address] [facility] [place] [address] Phone [phone] Care Team Providers Care Splitter Machine Name Role Phone Nahid Rodgers MD Primary Care Provider + Reason for Visit * Reason Onset Date Comments Medication Refill 09/15/2024 Encounter Details Date Type Department Care Team (Late st Contact Info) Description 09/15/2024 Refill Cardiology, [facility] [address] [facility] [place] [place] [id number] Janay Calderon, 400 [facility] [place] [address] Chronic diastolic congestive heart failure (HCC); Pure hypercholesterolemia; Paroxysmal atrial fibrillation (HCC); Acquired hypothyroidism; Chronic atrial fibrillation (HCC) Allergies Active Allergy Reactions Criticality Noted Date Comments Acetylcysteine High 02/14/2022 Other reaction(s): caused chest tightness, PVB and AFib Alendronate Sodium 12/13/2008 Other reaction(s): GI Upset Moxifloxacin Hcl In Nacl 04/01/2016 Hallucinations Black [place] Pollen Allergy Skin Test Rash High 10/16/2018 Burning sensation in mouth and throat Capsaicin Hives,Rash 01/08/2011 Cayenne Hives High 02/16/2008 Celecoxib Rash 03/27/2017 Erythromycin Rash 01/22/2015 Food (See Comments) Rash Low 05/20/2016 Walnuts Iodinated Contrast Media Anaphylaxis High 01/22/2015 Anaphylaxis 1988 with cardiac cath [facility], was recently confirmed December 2016 in Allergy Department [facility] Lumiracoxib Diarrhea 01/09/2007 Omeprazole 08/02/2015 Diarrhea, hair [...] TIMES DAILY 180 Tablet 3 025 Active Torsemide 5 MG Oral Tablet (Demadex)Indications:Ch ronic diastolic congestive heart failure (HCC) One tablet as needed daily for swelling and shortness of breath. 90 Tablet 3 024 2024 Disconti nued(Ref ill) Rosuvastatin Calcium 5 MG Oral Tablet (Crestor)Indications:Pu re hypercholesterolemia TAKE 1 TABLET BY MOUTH EVERY FRIDAY, FRIDAY, AND FRIDAY 40 Tablet 3 024 2024 Disconti nued(Ref ill) Metoprolol Tartrate 50 MG Oral Tablet (Lopressor)Indications: Paroxysmal atrial fibrillation (HCC) TAKE 1 TABLET BY MOUTH EVERY MORNING AND TAKE 1/2 TABLET BY MOUTH EVERY EVENING 135 Tablet 3 024 2024 Disconti nued(Ref ill) Apixaban 5 MG Oral Tablet (Eliquis)Indications:Ch ronic atrial fibrillation (HCC),Paroxysmal atrial fibrillation (HCC) TAKE 1 TABLET BY MOUTH TWO TIMES DAILY 180 Tablet 3 024 2024 Disconti nued(Ref ill) documented as [...] without sciatica 11/23/2018 Severe tricuspid 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 09/24/2018 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 0 09/24/2018 [...] encounter Miscellaneous Notes * Telephone Encounter - Katie Arzate, [facility] - 09/17/2024 7:14 AM ESTSigned Prescriptions: Disp Refills Torsemide 5 MG Oral Tablet (Demadex) 45 Tab*3 Sig: Take 0.5 Tablets by mouth in the morning.Authorizing Provider: JANAY CALDERON User: KATIE ARZATE Rosuvastatin Calcium 5 MG Oral Tablet (Cre*40 Tab*3 Sig: TAKE 1 TABLET BY MOUTH EVERY FRIDAY,FRIDAY, AND FRIDAYAuthorizing Provider: JANAY CALDERON User: KATIE ARZATE Metoprolol Tartrate 50 MG Oral Tablet (Lop*135 Ta*3 Sig: TAKE 1 TABLET BY MOUTH EVERY MORNING AND TAKE 1/2 TABLET BY MOUTH EVERY EVENINGAuthorizing Provider: JANAY CALDERONUser: KATIE ARZATE Apixaban 5 MG Oral Tablet (Eliquis) 180 Ta*3 Sig: TAKE 1 TABLET BY MOUTH TWO TIMES DAILYAuthorizing Provider: JANAY CALDERON User: KATIE ARZATEusedPrescriptions: Disp Refills Levothyroxine Sodium 100 MCG Oral Tablet (*90 Tab*3 Sig: TAKE 1 TABLET BY MOUTH EVERY MORNING AT LEAST 30 MINUTES PRIOR TO BREAKFAST OR OTHER MEDICATIONS.Refused By: KATIE ARZATE for Refusal: Managed by another physician documented in this encounter Plan of Treatment Upcoming Encounters Date Type Department Care Team (Late st Contact Info) Description 09/20/2024 3:00 PM EDT Office Visit General Internal Medicine [facility] [address] [place] [address] Nahid Rodgers MD 200 [facility] [place] [address] 10/01/2024 10:30 AM EDT Office Visit Cardiology, [facility] 132 [place] [address] Donte Chau DO 132 [place] [address] 12/08/2024 10:15 AM EDT Office Visit Orthopaedics Paul[place] Cazares [address] [place] [address] Marcus Collins MD [address] [place] [place], [place] [address] 01/28/2025 9:30 AM EDT Office Visit Cardiology, [facility] 132 [place] [address] Stacey Talbot CRNP 400 [place], [place] [id number] 02/14/2025 12:40 PM EDT Telemedicine Endocrinology [address] [place] [place] [address] Henna Malhotra MD [address] [place] [address] 02/28/2025 2:30 PM EDT Nurse Only Ancillary [facility] [address] [place] [address] Davina Nurse Annual Wellness Scenery [address] [place] [address] 03/09/2025 3:00 PM EDT Office Visit Rheumatology [facility] [address] [place] [phone] Julia Conway CRNP [address] [facility] [place] [address] Scheduled Orders Name Type Priority Associated Diagnoses Orde r Schedule MAGNESIUM Lab Routine Paroxysmal atrial fibrillation (HCC) Expected: 09/17/2024 (Approximate), Expires: 09/17/2025 Scheduled Procedures Name Priority Associated Diagnoses Date/Ti [...] D LEVEL ONCE IN A LIFETIME-USE SMARTSET# [id number] Completed 09/16/2024, 02/18/2024, 09/18/2023, Additional history exists [...] this encounter Medical Devices Implanted Type Area Pig Machine Supervisor Device Identifier Shelf Expiration Date Model / Serial / Lot [place] Mini Quick 2/0 [id number] - [id number] Implanted:Qty: 2 on 12/21/2018 by Marcus Collins MD at [place] [facility] [place] Left: Hand JNJ : DEPUY MITEK SURG PROD 08/13/2021 [id number] / / [id number] documented as of this encounter Visit Diagnoses Diagnosis Chronic diastolic congestive heart failure (HCC) Chronic diastolic heart failure Pure hypercholesterolemia Paroxysmal atrial fibrillation (HCC) Atrial fibrillation Acquired hypothyroidism Unspecified hypothyroidism Chronic atrial fibrillation (HCC) Atrial fibrillation documented in this encounter Advance Directives Documents on File Type Date Recorded Patient Lamination Operator Expl anation Power of Stand Up Comedian 02/20/2021 POWER OF A TTORNEY * Full [...] the patient have Health Care Power of Stand Up Comedian? Yes, not currently available Care Teams Splitter Machine Relationship Specialty Start Date End Date Nahid Rodgers MD [address] [place] [address] PCP - General Internal Medicine 01/27/24 documented as of this encounter
--- OUTSIDE RECORDS SUMMARY | 2024-09-27 02:21 | External Medical Summary ---
Author Name Unknown Address Unknown Organization [id number]:[facility] - [address] [place] [address] Laboratory Report Ordering Provider Test Date Status DO BENSUSANTEIN 09/16/2024 07:36:28 Final Observation Date Value Abnormality Reference (Units ) Status Triglyceride 09/16/2024 07:36:28 93 <=174 ( mg/dL) Final Triglyceride Reference Range s (mg/dL):
<150 Acceptable
150-174 Borderline high
175-499 High
>=500 Very high Cholesterol 09/16/2024 07:36:28 141 <200 (mg /dL) Final Total Cholesterol Reference Ranges (mg/dL):
<200 Desirable
200-239 Borderline high
>=240 High HDL 09/16/2024 07:36:28 57 >49 (mg/dL ) Final HDL Cholesterol Reference Ra nges (mg/dL):
>=60 High (Desirable)
<50 Low (Undesirable) For Females
<40 Low (Undesirable) For Males NON-HDL CHOLESTEROL 09/16/2024 07:36:28 84 <=159 (mg/dL) Final Non-HDL Cholesterol Referenc e Range (mg/dL):
<100 Target level for high risk ASCVD patient
<130 Optimal for general population
130-159 Near optimal for general population
160-189 Borderline High
190-219 High
>=220 Very High LDL, (calculated) 09/16/2024 07:36:28 65 <= 129 (mg/dL) Final LDL Cholesterol Reference Ra nges (mg/dL):
<70 Target level for high risk ASCVD patient
<100 Optimal for general population
100-129 Near optimal for general population
130-159 Borderline high
160-189 High
>=190 Very high Performing Location [facility] [place] [address] [facility] [address]
--- OUTSIDE RECORDS SUMMARY | 2024-09-27 02:21 | External Medical Summary ---
Author Name Unknown Address Unknown Organization [id number]:[facility] [place] - [address] [place] [address] [place] [address] Laboratory Report Ordering Provider Test Date Status PARIS FLOOD 09/16/2024 07:36:28 Final Observation Date Value Abnormality Reference (Units ) Status TSH 09/16/2024 07:36:28 1.12 0.27-4.20 (uIU/mL) Final Performing Location [facility] [place] [address] [place] [address]
--- OUTSIDE RECORDS SUMMARY | 2024-09-27 02:21 | External Medical Summary ---
Author Name Unknown Address Unknown Organization [id number]:[facility] [place] - [address] [address] Laboratory Report Ordering Provider Test Date Status PARIS FLOOD 09/16/2024 07:36:28 Final Deficient: <20 ng/mL
Ins ufficient: 20-29 ng/mL
Recommended/Optimum:30-50 ng/mL

Vitamin D intoxication is rare. If suspicious of Vitamin D toxicity, evaluation of serum Calcium and PTH is recommended. Observation Date Value Abnormality Reference (Units ) Status 25-OH Vitamin D total 09/16/2024 07:36:28 56 >19 (ng/mL) Final Performing Location LAB[facility]ATORY [facility] [place] - [address] [place] [address]
--- OUTSIDE RECORDS SUMMARY | 2024-09-27 02:21 | External Medical Summary | Summary of Care ---
Author Name Unknown Organization [facility] Address [address] [place] [address] Phone [phone] Care Team Providers Care Teletype Telegrapher Name Role Phone Nahid Rodgers MD Primary Care Provider + Reason for Visit * Reason Comments Outpatient Testing Encounter Details Date Type Department Care Team (Latest Contact Info) Description 09/16/2024 7:40 AM EST Laboratory Laboratory [address] [place] [address] [place] [phone] [place], Lab Scenery [address] [place] [address] Hyperparathyroidism (HCC); Vitamin D deficiency; Senile osteoporosis; Postoperative hypothyroidism; HTN, goal below 140/90; Hyperparathyroidism, primary (HCC) Allergies Active Allergy Reactions Criticality Noted Date Comments Acetylcysteine High 02/14/2022 Other reaction(s): caused chest tightness, PVB and AFib Alendronate Sodium 12/13/2008 Other reaction(s): GI Upset Moxifloxacin Hcl In Nacl 04/01/2016 Hallucinations Black [place] Pollen Allergy Skin Test Rash High 10/16/2018 [...] TIMES DAILY 180 Tablet 3 024 Active Famotidine 20 MG Oral Tablet (Pepcid) Take 1 Tablet by mouth in the morning and 1 Tablet before bedtime. 180 Tablet 3 024 Active Sertraline HCl 25 MG Oral Tablet (Zoloft) Take 1 Tablet by mouth in the morning. 90 Tablet 1 024 Active Losartan Potassium 25 MG Oral Tablet (Cozaar)Indications:HTN , goal below 140/90 Take 1 Tablet by mouth at bedtime. 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 0 09/24/2018 [...] Assessment Author No 02/24/2023 12:57 PM EDT Ceilne Ramsay RN * Because of a physical, [...] Celine Ramsay RN documented in this encounter Plan of Treatment Upcoming Encounters Date Type Department Care Team (Late st Contact Info) Description 09/20/2024 3:00 PM EDT Office Visit General Internal Medicine [facility] [address] [place] [address] Nahid Rodgers MD [address] [place] [address] 10/01/2024 10:30 AM EDT Office Visit Cardiology, [facility] [address] [place] [address] Donte Chau DO [address] [facility] [place] [address] 12/08/2024 10:15 AM EDT Office Visit Orthopaedics [place] [address] [place] [address] Marcus Collins MD 16 [place] [address] 01/28/2025 9:30 AM EDT Office Visit Cardiology, [facility] [address] [place] [address] Stacey Talbot CRNP [address] [place] [address] 02/14/2025 12:40 PM EDT Telemedicine Endocrinology [address] [place], [place] [address] Henna Malhotra MD [address] [place] [place] [id number] 02/28/2025 2:30 PM EDT Nurse Only Ancillary [facility] [place] [address] [place] [address] [place], Nurse Annual Wellness Scenery [address] [place] [address] 03/09/2025 3:00 PM EDT Office Visit Rheumatology [facility] [address] [facility] [place] [phone] Julia Conway CRNP [address] [place] [address] Pending Results Name Type Priority Associated Diagnoses Date /Time 25-HYDROXY VITAMIN D Lab Routine Hyperparathyroidism (HCC) Vitamin D deficiency Senile osteoporosis Postoperative hypothyroidism 09/16/2024 7:36 AM EST PTH Lab Routine Hyperparathyroidism (HCC) Vitamin D deficiency Senile osteoporosis Postoperative hypothyroidism 09/16/2024 7:36 AM EST TSH WITH FREE T4 IF INDICATED Lab Routine Hyperparathyroidism (HCC) Vitamin D deficiency Senile osteoporosis Postoperative hypothyroidism 09/16/2024 7:36 AM EST COMPREHENSIVE METABOLIC PANEL Lab Routine HTN, goal below 140/90 09/16/2024 7:36 AM EST LIPID PANEL WITH DIRECT LDL IF TG IS HIGH Lab Routine HTN, goal below 140/90 09/16/2024 7:36 AM EST CBC WITH WBC DIFFERENTIAL Lab Routine Hyperparathyroidism, primary (HCC) 09/16/2024 7:36 AM EST CBC Lab Routine Hyperparathyroidism, primary (HCC) 09/16/2024 7:36 AM EST DIFFERENTIAL, AUTOMATED Lab Routine Hyperparathyroidism, primary (HCC) 09/16/2024 7:36 AM EST PHOSPHORUS Lab Routine Hyperparathyroidism ([facility]) Vitamin D deficiency Senile osteoporosis Postoperative hypothyroidism 09/16/2024 7:36 AM EST Scheduled Procedures Name Priority Associated Diagnoses Date/Ti me ESOPHAGOGASTRODUODENOSCOPY ( EGD), FLEXIBLE, TRANSORAL, ENDOSCOPIC ULTRASOUND Recall Pancreatic cyst Health Maintenance Due Date Last Done Comments COVID-19 Vaccine ( season) 2024 03/12/2024, 05/22/2023, 04/10/2022, Additional history exists TSH 02/17/2025 02/18/2024, 04/13, 02/17/2023, Additional history exists Adult Wellness Visit 02/23/2025 02/24/2024, 01/22/2023, 01/21/2022, Additional history exists Depression Monitoring 02/23/2025 02/24/2024 HbA1c 03/25/2025 03/25/2024, 01/2023, 07/22/2022, Additional history exists GFR 05/11/2025 05/11/2024, 030 01/2024, 07/11/2023, Additional history exists DXA Scan 12/29/2025 12/30/2023, 08/14, 08/11/2019, Additional history exists Albumin/Creatinine Ratio 02/17/2026 023, 05/20/2022, 02/28/2021, Additional history exists DTap/Tdap Vaccines (4 - Td or Tdap) 02/19/2029 02/19/2019, 02/17/2019, 09/16/2008, Additional history exists Pneumococcal Vaccine: 50+ Years Completed 03/05/2016, 01/29/2012, 09/14/2002 Zoster Vaccines Completed 12/07/2019, 07/15, 04/16/2016 VITAMIN D LEVEL ONCE IN A LIFETIME-USE SMARTSET# [id number] Completed 02/18/2024, 09/18/2023, 04/30/2023, Additional history exists Influenza Vaccine (FLU shot) Completed 06/2024, 03/24/2023, 04/22/2022, Additional history exists HPV (Gardasil) Vaccine Aged [...] this encounter Medical Devices Implanted Type Area Multisensor Intelligence Officer Device Identifier Shelf Expiration Date Model / Serial / Lot [place] Mini Quick 2/0 [id number] - [id number] Implanted:Qty: 2 on 12/21/2018 by Marcus Collins MD at [place] [facility] [place] Left: Hand JNJ : DEPUY MITEK SURG PROD 08/13/2021 [id number] / / [id number] documented as of this encounter Visit Diagnoses Diagnosis Hyperparathyroidism (HCC) Hyperparathyroidism, unspecified Vitamin D deficiency Unspecified vitamin D deficiency Senile osteoporosis Postoperative hypothyroidism Postsurgical hypothyroidism HTN, goal below 140/90 Unspecified essential hypertension Hyperparathyroidism, primary (HCC) Primary hyperparathyroidism documented in this encounter Advance Directives Documents on File Type Date Recorded 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 Yes, not currently available Care Teams Teletype Telegrapher Relationship Specialty Start Date End Date Nahid Rodgers MD [address] [place] [address] PCP - General Internal Medicine 01/27/24 documented as of this encounter
--- OUTSIDE RECORDS SUMMARY | 2024-09-27 02:21 | External Medical Summary ---
Author Name Unknown Address Unknown Organization K09:[facility] - [address] [place] [address] Laboratory Report Ordering Provider Test Date Status NINOSKA CONTRERAS 09/16/2024 07:36:28 Final Observation Date Value Abnormality Reference (Units ) Status BUN 09/16/2024 07:36:28 17 6-20 (mg/dL) Final Creatinine 09/16/2024 07:36:28 0.8 0.5-1.0 (mg/dL) Final Glomerular filtration rate/1.73 sq M.predicted [Volume Rate/Area] in Serum, Plasma or Blood by Creatinine-based formula (CKD-EPI) 09/16/2024 07:36:28 77 >=60 (mL/min) Final eGFR is calculated based on the CKD-EPI 2020 equation. Sodium 09/16/2024 07:36:28 142 135-146 (m mol/L) Final Potassium 09/16/2024 07:36:28 4.6 3.5-5.1 (m mol/L) Final Cl 09/16/2024 07:36:28 106 98-107 (mm ol/L) Final CO2 09/16/2024 07:36:28 27 22-32 (mmo l/L) Final Anion gap 09/16/2024 07:36:28 9 7-15 (mmol /L) Final Glucose 09/16/2024 07:36:28 107 70-120 (mg /dL) Final Albumin 09/16/2024 07:36:28 4.6 3.8-5.0 (g /dL) Final AST (Aspartate aminotransferase) 09/16/2024 07:36:28 22 10-35 (U/L) Final Alk Phos 09/16/2024 07:36:28 57 35-130 (U/ L) Final Bilirubin, Total 09/16/2024 07:36:28 0.8 <=1 .2 (mg/dL) Final Calcium 09/16/2024 07:36:28 9.5 8.4-10.2 ( mg/dL) Final Protein 09/16/2024 07:36:28 6.8 6.0-8.3 (g /dL) Final ALT (Alanine aminotransferase) 09/16/2024 07:36:28 14 10-35 (U/L) Final Performing Location [facility] [address] [place] [address]
--- OUTSIDE RECORDS SUMMARY | 2024-09-27 02:21 | External Medical Summary | Summary of Care ---
Author Name Unknown Organization [facility] Address [address] [address] Phone [phone] Care Team Providers Care Community Specialist Name Role Phone Nahid Rodgers MD Primary Care Provider + Reason for Visit * Reason Onset Date Comments Advice 09/09/2024 Lost cane . Encounter Details Date Type Department Care Team (Late st Contact Info) Description 09/09/2024 Telephone General Internal Medicine [facility] [address] [place] [address] Nahid Rodgers MD [address] [place] [address] Advice (Lost cane .) Allergies Active Allergy Reactions Criticality Noted Date Comments Acetylcysteine High 02/14/2022 Other reaction(s): caused chest tightness, PVB and AFib Alendronate Sodium 12/13/2008 Other reaction(s): GI Upset Moxifloxacin Hcl In Nacl 04/01/2016 Hallucinations Black [place] Pollen Allergy Skin Test Rash High 10/16/2018 [...] as of this encounter (statuses as of 09/09/2024) Medications Ventolin HFA 108 (90 Base) MCG/ACT [...] TABLET BY MOUTH EVERY FRIDAY, FRIDAY, AND GARY 40 Tablet 3 024 Active Metoprolol Tartrate [...] as of this encounter (statuses as of 09/09/2024) Active Problems Problem Noted Date Diagnosed Date Prediabetes 03/26/2024 Hiatal hernia 10/10/2022 Renal calculus, left 10/10/2022 Restrictive lung disease 07/18/2022 Status post left knee replacement 10/24/2021 Pancreas cyst 09/05/2021 HTN, goal below 140/90 08/03/2021 Chronic diastolic congestive heart failure 10/20 Senile osteoporosis 07/28/2019 SWAIN (dyspnea on exertion) 07/28/2019 Hyperparathyroidism, primary 11/23/2018 Low back pain without sciatica 11/23/2018 Severe tricuspid 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 0 09/24/2018 History of compression fracture of spine 018 Major depressive disorder wi th single episode, in full remission 04/06/2018 Chronic atrial fibrillation 01/12/2018 S/P AV brayan ablation 12/13/2016 Cardiac pacemaker in situ 12/13/2016 Postoperative hypothyroidism 03/04/2016 Mixed hyperlipidemia Bronchiectasis documented as of this encounter (statuses as of 09/09/2024) Resolved Problems Problem Noted Date Diagnosed Date [...] as of this encounter (statuses as of 09/09/2024) Immunizations Name Administration Dates Next Due COVID-19 [...] No 01/30/2024 Does the household have a [facility] source of income? (Household - for ages [...] encounter Miscellaneous Notes * Telephone Encounter - Chayo Salas LPN - 09/09/2024 11:46 AM EST Left message for pt that cane was not in the lost and found. * Telephone Encounter - Yuval Lara OSA - 09/09/2024 8:11 AM EST Patient was transferred to rheumatology scheduling. Per teams message lost and found is in the security office and no one is there yet. They will call patient back. Thank you * Telephone Encounter - Jesi Florence OSA - 09/09/2024 7:53 AM EST Pt says she was at [facility] and she was on first and second floor and she lost her Tracking pole( she uses it as a cane ) Black with turquoise . She asks if there is a lost and found and if someone can check on this for her . The last place she remembers [facility] the [facility] on 2nd floor . Please call her [phone] I sent this as a teams message ( to my fam prac teams chat as that is where I am as far as my dept ) as she is not a fam prac Pt and says she was at rheumatology I also Tx her to that dept . documented in this encounter Plan of Treatment Upcoming Encounters Date Type Department Care Team (Late st Contact Info) Description 09/20/2024 3:00 PM EDT Office Visit General Internal Medicine [facility] [address] [place] [address] Nahid Rodgers MD 200 [facility] [place] [address] 10/01/2024 10:30 AM EDT Office Visit Cardiology, [facility] [address] [place] [address] Donte Chau DO [address] [place] [address] 12/08/2024 10:15 AM EDT Office Visit Orthopaedics [place] [facility] [address] [place] [address] [phone] Marcus Collins MD 16 [facility] [place], [place] [address] 01/28/2025 9:30 AM EDT Office Visit Cardiology, [facility] [address] [place] [address] Stacey Talbot CRNP [address] [place] [address] 02/14/2025 12:40 PM EDT Telemedicine Endocrinology [address] [place], [place] [address] Henna Malhotra MD [address] [place], [place] [id number] 02/28/2025 2:30 PM EDT Nurse Only Ancillary Scenery [facility] [address] [place] [address] [place], Nurse Annual Wellness Scenery [address] [place] [address] 03/09/2025 3:00 PM EDT Office Visit Rheumatology [facility] [address] [facility] [place] [phone] Julia Conway CRNP [address] [place] [address] Scheduled Procedures Name Priority Associated Diagnoses Date/Ti [...] 080 01/2023, 07/22/2022, Additional history exists GFR 05/11/2025 [...] D LEVEL ONCE IN A LIFETIME-USE SMARTSET# [id number] Completed 02/18/2024, 09/18/2023, 04/30/2023, Additional history exists [...] this encounter Medical Devices Implanted Type Area Culture Room Worker Device Identifier Shelf Expiration Date Model / Serial / Lot [place] Mini Quick 2/0 [id number] - [id number] Implanted:Qty: 2 on 12/21/2018 by Marcus Collins MD at [place] [facility] [place] Left: Hand JNJ : DEPUY MITEK SURG PROD 08/13/2021 [id number] / / [id number] documented as of this encounter Advance Directives Documents on File Type Date Recorded Patient 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 Yes, not currently available Care Teams Community Specialist Relationship Specialty Start Date End Date Nahid Rodgers MD [address] [place] [address] PCP - General Internal Medicine 01/27/24 documented as of this encounter
--- OUTSIDE RECORDS SUMMARY | 2024-09-27 02:21 | External Medical Summary ---
Author Name Unknown Address Unknown Organization K09:[facility] [place] [address] Laboratory Report Ordering Provider Test Date Status NINOSKA CONTRERAS 09/16/2024 07:36:28 Final Observation Date Value Abnormality Reference (Units ) Status WBC, Total 09/16/2024 07:36:28 5.62 4.00-10.8 0 (K/uL) Final RBC 09/16/2024 07:36:28 4.71 3.85-5.15 (M/uL) Final Hemoglobin 09/16/2024 07:36:28 14.3 12.0-15.3 (g/dL) Final HCT 09/16/2024 07:36:28 45.0 36.0-45.2 (%) Final MCV 09/16/2024 07:36:28 95.5 81.5-97.5 (fL) Final MCH 09/16/2024 07:36:28 30.4 27.0-34.0 (pg) Final MCHC 09/16/2024 07:36:28 31.8 32.0-36.0 (g/dL) Final RDW 09/16/2024 07:36:28 14.5 11.5-15.5 (%) Final Platelets 09/16/2024 07:36:28 162 140-400 (K /uL) Final MPV 09/16/2024 07:36:28 10.4 6.6-11.1 ( fL) Final Performing Location [facility] [address]
[2024-09-27] MEDS: SODIUM CHLORIDE 0.9% 500 ML IV ONE (02:34)
[2024-09-27] MEDS: ONDANSETRON INJ 2 MG/ML 2 ML VIAL IV STA (02:35)
--- NOTE | 2024-09-27 02:35 | Emergency Department Note ---
History of Present Illness General Chief complaint: Illness Stated complaint: PALPITATIONS, DIARRHEA FOR 1 WEEK Time Seen by Provider: 09/27/24 02:17 History of Present Illness Maximum Pain Intensity: 4 This is an 83-year-old female with PMH of bronchiectasis, chronic atrial fibrillation status post AV brayan ablation on anticoagulation, chronic diastolic CHF, status post pacemaker placement, hypertension, depression presents ER complaining of feeling sick he was been on Augmentin for sinus infection with diarrhea and abdominal discomfort for the past few days. Patient states she feels weak and dehydrated. Patient denies chest pain, dyspnea, vomiting, cough, congestion. She states her sinuses feel better. Home Medications Medication Instructions Recorded Confirmed Type acetaminophen 325 mg tablet 325 mg PO Q6H PRN Pain 08/28/18 09/27/24 History (Tylenol) apixaban 5 mg tablet (Eliquis) 5 mg PO BID 08/28/18 09/27/24 History levothyroxine 100 mcg tablet 100 mcg PO QAM 08/28/18 09/27/24 History metoprolol tartrate 50 mg tablet See Rx Instructions .Route .COMPLEX 08/28/18 09/27/24 History sertraline 25 mg tablet 25 mg PO QAM 08/28/18 09/27/24 History rosuvastatin 5 mg tablet 5 mg PO MOWEFR@0900 09/30/18 09/27/24 History famotidine 20 mg tablet 20 mg PO BID 08/03/20 09/27/24 History cholecalciferol (vitamin D3) 25 2,000 unit PO QAM 09/14/20 09/27/24 History mcg (1,000 unit) capsule (Vitamin D3) cyclosporine 0.05 % eye drops 1 drp ophthalmic (eye) Q12H 12/14/20 09/27/24 History (Restasis MultiDose) Flutter Valve #1 ea 08/09/21 09/27/24 Rx losartan 25 mg tablet 25 mg PO HS 08/09/21 09/27/24 History Wheeled Walker #1 ea 12/19/21 09/27/24 Rx ulrsbvxn-pgae-rmja 8 mg-folic 400 1 tab PO QAM 02/14/22 09/27/24 History mcg-K 50 mcg-lutein 300 mcg tablet (Centrum Silver Women) Incentive Spirometer #1 ea 02/21/22 09/27/24 Rx torsemide 5 mg tablet 5 mg PO Q OTHER DAY Edema 08/08/22 09/27/24 History docusate sodium 100 mg tablet 200 mg PO DAILY PRN Constipation 09/18/22 09/27/24 History food supplemt, lactose-reduced 1 ea PO DAILY 09/18/22 09/27/24 History (Ensure oral liquid) peg 400-propylene glycol (PF) 0.4 1 drp ophthalmic (eye) QID PRN Dry 09/18/22 09/27/24 History %-0.3 % eye drops in a dropperette Eyes (Systane (PF)) nebulizer accessories #1 ea 11/18/22 09/27/24 Rx amoxicillin 500 mg tablet 2,000 mg PO DIRECTED PRN 07/22/23 09/27/24 History prophylaxis dextromethorphan-guaifenesin 10 1 ml PO DAILY PRN Cough 07/22/23 09/27/24 History mg-100 mg/5 mL oral liquid (Tussin DM) Miscellaneous Pulmonary Supply #1 ea 11/17/23 09/27/24 Rx hydrocortisone 2.5 % topical cream 1 applic topical TID PRN Other 01/17/24 09/27/24 History nystatin 100,000 unit/gram topical 1 applic topical BID PRN Other 01/17/24 09/27/24 History cream umeclidinium 62.5 mcg-vilanterol 1 inh inhalation DAILY #3 Inhalers 03/02/24 09/27/24 Rx 25 mcg/actuation powdr for inhalation (Anoro Ellipta) Ventolin HFA 90 mcg/actuation 2 puff inhalation Q4H PRN 08/25/24 09/27/24 Rx aerosol inhaler (albuterol sulfate) shortness of breath or wheezing #3 Inhalers denosumab 60 mg/mL subcutaneous mg subcut 09/09/24 09/09/24 History syringe (Prolia) sodium chloride 7 % for 4 ml inhalation BID PRN SOB 09/27/24 09/27/24 History nebulization Allergies Allergy/AdvReac Type Severity Reaction Status Date / Time acetylcysteine Allergy Severe caused Verified 09/09/24 10:06 chest tightness, PVB and AFib Iodinated Contrast Media Allergy Severe ANAPHYLAXIS Verified 09/09/24 10:06 rivaroxaban Allergy Severe PERICARDIAL Verified 09/09/24 10:06 EFFUSION shellfish derived Allergy Severe "Seafood" Verified 09/09/24 10:06 -- ANAPHYLAXIS warfarin Allergy Severe "NUMBERS Verified 09/09/24 10:06 WENT TO HIGH" cayenne Allergy Intermediate hives Verified 09/09/24 10:06 erythromycin base Allergy Intermediate RASH Verified 09/09/24 10:06 piperacillin [From Zosyn] Allergy Intermediate Hives Verified 09/27/24 12:50 simvastatin Allergy Intermediate RASH Verified 09/09/24 10:06 Lnqjmek-URA-XgG Reductase Allergy Intermediate Rash Verified 09/09/24 10:06 Inhibitor [Sfsybns-Bep-Spc Reductase Inhibitor] tazobactam [From Zosyn] Allergy Intermediate Hives Verified 09/27/24 12:50 walnut Allergy Intermediate Rash WITH Verified 09/09/24 10:06 black walnut capsaicin Allergy Mild hives Verified 09/09/24 10:06 celecoxib Allergy Mild RASH Verified 09/09/24 10:06 nystatin Allergy Mild RASH Verified 09/09/24 10:06 azithromycin Allergy Unknown CAN'T Verified 09/09/24 10:06 REMEMBER omeprazole Allergy Unknown Unknown Verified 09/09/24 10:06 alendronate sodium Allergy GI upset Verified 09/09/24 10:06 lumiracoxib Allergy diarrhea Verified 09/09/24 10:06 Sulfa (Sulfonamide Allergy nausea, Verified 09/09/24 10:06 Antibiotics) vomiting moxifloxacin [From Avelox] AdvReac Severe Hallucinati Verified 09/09/24 10:06 ng lansoprazole [From Prevacid] AdvReac Intermediate FELT Verified 09/09/24 10:06 BLOATED AFTER TAKING Past Med/Surg History Problem List (Updated 09/27/24 @ 03:48 by Radha Barraza PA-C) Acute diarrhea (Acute) Weakness (Acute) CAP (community acquired pneumonia) (Acute) Osteoarthritis of left shoulder Recurrent UTI Urinary urgency Microscopic hematuria Urinary symptom or sign Tendinitis of right rotator cuff (HFpEF) heart failure with preserved ejection fraction Coagulopathy (Acute) Acute head trauma (Acute) Fall (Acute) Acute right hip pain (Acute) Closed pelvic fracture (Acute) Impingement syndrome of shoulder Status post left hip replacement (~10/2022) Pulmonary hypertension Mild with PASP 36 mmHg. Likely type II for possible combination of type III per pulm, follows with [facility] Hypothyroidism (Chronic) GERD (gastroesophageal reflux disease) (Chronic) HLD (hyperlipidemia) (Chronic) Bronchiectasis (Chronic) Osteoarthritis (Chronic) Hx of endoscopy Paroxysmal atrial fibrillation (Chronic) Osteoporosis (Chronic) History of pericarditis (Chronic) "November 2016. Suspected hemopericardium secondary to rivaroxaban." History of pancreatitis (Chronic) Pericardial effusion (Chronic) Gastroenteritis (Acute) Chest pain H/O arthroscopic knee surgery (Chronic) H/O partial thyroidectomy (Chronic) History of tonsillectomy (Chronic) History of appendectomy (Chronic) Hx of cholecystectomy (Chronic) History of sinus surgery (Chronic) History of tubal ligation (Chronic) Status post atrioventricular brayan ablation (Chronic) Status post cardiac pacemaker procedure (Chronic) Lower extremity pain (Acute) Encounter for pre-operative examination Rotator cuff tear, left Osteoarthritis of shoulders, bilateral Pulmonary hyperinflation Rotator cuff arthropathy of left shoulder Back pain COPD (chronic obstructive pulmonary disease) Contusion of knee Greater trochanteric bursitis of left hip Exertional shortness of breath Allergic rhinitis with postnasal drip Pulmonary nodule Abnormal chest CT Restrictive lung disease Osteoarthritis, hip, bilateral Osteoarthritis of left hip Chronic anticoagulation Chronic left hip pain Primary hyperparathyroidism H/O partial thyroidectomy 1975 follicular adenoma of left lobe Tricuspid valve 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 Severe TR per 03/28/22 echo Schatzki's ring Pericardial effusion with cardiac tamponade 2017 > pericardial window ([facility]) Pacemaker Dual chamber, Medtronic, implanted [address] Chau Atrial fibrillation Dx many years ago, s/p multiple cardioversions, s/p dual chamber PPM 2017 with AV junction ablation Bronchiectasis Follows with Dr. Clark Medical History (HFpEF) heart failure with preserved ejection fraction Blood clot in eye CKD (chronic kidney disease) stage 3, GFR 30-59 ml/min Chronic diastolic (congestive) heart failure Hypothyroidism Pulmonary hypertension Primary hyperparathyroidism Tricuspid valve 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 Pericardial effusion with cardiac tamponade Schatzki's ring Hiatal hernia Pulmonary scarring History of ovarian cyst Osteopenia GERD (gastroesophageal reflux disease) History of depression Pacemaker Atrial fibrillation Hypertension Hyperlipidemia Bronchiectasis Surgical History H/O hand surgery S/P transesophageal echocardiogram ([facility]) H/O partial thyroidectomy H/O toe surgery History of cataract surgery S/P pericardial window creation History of atrioventricular brayan ablation History of anesthesia reaction History of bilateral tubal ligation History of breast biopsy History of total knee replacement History of cholecystectomy History of appendectomy History of cystoscopy History of esophagogastroduodenoscopy (EGD) History of colonoscopy History of tonsillectomy History of tooth extraction History of sinus surgery History of cardiac cath History of cardioversion Family History (Updated 01/17/24 @ 13:00 by Imani Porter PA-C) Father Heart disease from scarlet fever Mother Dementia Heart disease Brother Heart disease from rheumatic fever Sister Hypothyroidism Social History Smoking Status: Never smoker Second Hand Exposure: No; Do You Dip or Chew Tobacco: No; Hx Alcohol Use: Yes Alcohol type: wine Hx Substance Use: No Preferred Language: [place] Communication Ability: Effective 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 Beliefs That Will Affect Care: None Current Living Situation: Alone Current Living Situation Comment: christopher Feels Safe at Home: Yes Assistive Devices: Glasses, Raised Toilet Seat, Walker and Other Review of Systems A total of 10 systems reviewed and were otherwise negative Physical Exam Vital Signs Vital Signs - 24 hr 09/27/24 04:52 Pulse Rate [Apical] 91 H Respiratory Rate 16 Respiratory Effort / Characteristics Non-Labored Spontaneous Respiratory Depth Normal Respiratory Pattern Regular Blood Pressure [Right Arm] 156/90 H Blood Pressure Mean [Right Arm] 112 Blood Pressure Position [Right Arm] Semi-fowlers Pulse Oximetry 95 Oxygen Delivery Method Room Air VITALS: Vitals are noted on the nurse's note and reviewed by myself. Vital signs stable. GENERAL: Pleasant female, in no acute distress, nondiaphoretic, well-developed well-nourished. SKIN: The skin was without rashes, erythema, edema, or bruising. There is no tenting of the skin. Capillary reflex less than 2 seconds. HEAD: Normocephalic atraumatic. EARS: External auditory canals clear EYES: Pupils equal round and reactive to light and accommodation. Conjunctivae without injection, sclerae without icterus. Extraocular movements intact. NOSE: Patent, no discharge. MOUTH: Mucous membranes moist. Pharynx without erythema or exudate. Uvula midline. Airway patent. Tongue does not deviate. NECK: Supple without nuchal rigidity. No lymphadenopathy. No thyromegaly. Cervical spine is nontender. No JVD. HEART: Regular rate and rhythm LUNGS: Clear to auscultation bilaterally without wheezes, rales or rhonchi. No retractions or accessory muscle use. ABDOMEN: Positive bowel sounds x 4. Normal tympanic percussion. Soft, mild diffuse tenderness, without masses or organomegaly. Spring sign negative. No guarding or rebound tenderness. No CVA tenderness MUSCULOSKELETAL: No muscle atrophy, erythema, or edema noted. NEURO: Patient was alert and oriented to person place and time. Normal sensation to light and sharp touch. No focal neurological deficits. Course Administered Medications Discontinued Medications Acetaminophen (Acetaminophen 325 Mg Tab) 650 mg PO Q4H PRN PRN Reason: Pain or Fever Stop: 10/27/24 05:06 Last Admin: 09/27/24 13:47 Dose: 650 mg Documented By: MARYCHUY Apixaban (Apixaban 5 Mg Tablet) 5 mg PO BID ROSAURA Stop: 10/27/24 08:59 Last Admin: 09/27/24 07:55 Dose: 5 mg Documented By: MARYCHUY Diphenhydramine HCl (Diphenhydramine 50 Mg/Ml Vial) 25 mg IV NOW [facility] Stop: 09/27/24 04:34 Last Admin: 09/27/24 04:39 Dose: 25 mg Documented By: JORDON Diphenhydramine HCl (Diphenhydramine 50 Mg/Ml Vial) Confirm Administered Dose 50 mg .ROUTE .STK-MED ONE Stop: 09/27/24 04:36 Last Admin: 09/27/24 04:42 Dose: Not Given Documented By: JORDON Famotidine (Famotidine 20 Mg Tab) 20 mg PO BID ROSAURA Stop: 10/27/24 08:59 Last Admin: 09/27/24 08:01 Dose: 20 mg Documented By: MARYCHUY Sodium Chloride (Nss) 500 mls @ 999 mls/hr IV .Q31M ONE Stop: 09/27/24 02:55 Last Infusion: 09/27/24 02:59 Dose: Infused Documented By: Admin: 09/27/24 02:34 Dose: 999 mls/hr Documented By: JORDON Piperacillin Sod/Tazobactam Sod (Zosyn) 4.5 gm in 100 mls @ 200 mls/hr IV NOW ONE; Protocol Stop: 09/27/24 04:04 Last Infusion: 09/27/24 04:29 Dose: Infused Documented By: Admin: 09/27/24 03:49 Dose: 200 mls/hr Documented By: JORDON Lactated Ringer's (Lr) 1,000 mls @ 100 mls/hr IV .Q10H ON LICENSE OF [facility] Stop: 09/28/24 01:06 Last Infusion: 09/27/24 12:34 Dose: Infused Documented By: Admin: 09/27/24 06:28 Dose: 100 mls/hr Documented By: AVINASH Acetaminophen (Ofirmev) 1,000 mg in 100 mls @ 400 mls/hr IV NOW STA Stop: 09/27/24 09:05 Last Infusion: 09/27/24 09:37 Dose: Infused Documented By: Admin: 09/27/24 09:21 Dose: 400 mls/hr Documented By: MARYCHUY Levothyroxine Sodium (Levothyroxine Sodium 100 Mcg Tablet) 100 mcg PO DAILYBB ON LICENSE OF [facility] Stop: 10/27/24 06:29 Last Admin: 09/27/24 07:55 Dose: 100 mcg Documented By: MARYCHUY Methylprednisolone (Methylprednisolone 125 Mg/2 Ml Vial) 125 mg IV NOW STA Stop: 09/27/24 04:34 Last Admin: 09/27/24 04:37 Dose: 125 mg Documented By: JORDON Methylprednisolone (Methylprednisolone 125 Mg/2 Ml Vial) Confirm Administered Dose 125 mg .ROUTE .STK-MED ONE Stop: 09/27/24 04:36 Last Admin: 09/27/24 04:42 Dose: Not Given Documented By: JORDON Metoprolol Tartrate (Metoprolol Tartrate 50 Mg Tab) 50 mg PO [facility] Stop: 10/27/24 08:59 Last Admin: 09/27/24 07:55 Dose: 50 mg Documented By: MARYCHUY Multivitamins/Minerals (Cerovite Adv Formula Tab) 1 tab PO [facility] Stop: 10/27/24 08:59 Last Admin: 09/27/24 07:54 Dose: 1 tab Documented By: MARYCHUY Ondansetron HCl (Ondansetron Inj 2 Mg/Ml 2 Ml Vial) 4 mg IV NOW STA Stop: 09/27/24 02:26 Last Admin: 09/27/24 02:35 Dose: 4 mg Documented By: EMB Rosuvastatin Calcium (Rosuvastatin Calcium 5 Mg Tab) 5 mg PO MOWEFR@0900 ON LICENSE OF [facility] Stop: 10/27/24 08:59 Last Admin: 09/27/24 07:54 Dose: 5 mg Documented By: MARYCHUY Sertraline HCl (Sertraline Hcl 50 Mg Tablet) 25 mg PO QAM [facility]A Stop: 10/27/24 08:59 Last Admin: 09/27/24 07:55 Dose: 25 mg Documented By: MARYCHUY Umeclidinium/Vilanterol (Umeclidinium/Vilanterol 62.5/25mcg 7 Puffs/Inhaler) 1 puffs INH DAILY ROSAURA Stop: 10/27/24 08:59 Last Admin: 09/27/24 08:00 Dose: Not Given Documented By: MARYCHUY Vitamin D (Cholecalciferol 25 Mcg (1000 Units) Tab) 50 mcg PO QAM ON LICENSE OF [facility] Stop: 10/27/24 08:59 Last Admin: 09/27/24 07:54 Dose: 50 mcg Documented By: MARYCHUY Medical Decision Making Medical Records Attestation: I reviewed the patient's medical records. Home Medications Current Medication List: was personally reviewed by me Laboratory Data Attestation: I reviewed the patient's lab results. 09/27/24 06:43 09/27/24 06:43 Lab Results 09/27/24 09/27/24 09/27/24 Range/Units 02:20 02:45 03:14 WBC 7.05 (4.8-10.8) K/ul RBC 4.60 (4.20-5.40) M/uL Hgb 14.0 (12.0-16.0) g/dl Hct 42.5 (37.0-47.0) % MCV 92.4 (80.0-100.0) fL MCH 30.4 (25.0-34.0) pg MCHC 32.9 (32.0-36.0) g/dL RDW Std Deviation 47.5 H (36.4-46.3) fL RDW Coeff of Woo 13.9 (11.5-14.5) % Plt Count 172 (130-400) K/uL MPV 10.3 (9.4-12.4) fL Immature Gran % (Auto) 0.4 % Neut % (Auto) 64.7 % Lymph % (Auto) 24.8 % [place] % (Auto) 7.0 % Eos % (Auto) 2.4 % Baso % (Auto) 0.7 % Neut # (Auto) 4.56 (1.40-6.50) K/uL Lymph # (Auto) 1.75 (1.20-3.40) K/uL [place] # (Auto) 0.49 (0.11-0.59) K/uL Eos # (Auto) 0.17 (0.00-0.50) K/uL Baso # (Auto) 0.05 (0.00-0.20) K/uL Immature Gran # (Auto) 0.03 (0.01-0.20) K/uL Sodium 138 (136-145) mmol/L Potassium 3.9 (3.5-5.1) mmol/L Chloride 105 (98-107) mmol/L Carbon Dioxide 29 (21-32) mmol/L Anion Gap 4 (3-11) BUN 12 (6-23) mg/dl Creatinine 0.74 (0.6-1.2) mg/dl Est Cr Clr Drug Dosing 65.5 ml/min eGFR 79.73 BUN/Creatinine Ratio 16.2 (10-20) Glucose 127 H (70-99(Fasting)) mg/dl Lactate 1.7 (0.4-2.0) mmol/L Calcium 9.5 (8.6-10.3) mg/dl Magnesium 2.1 (1.7-2.4) mg/dl Total Bilirubin 0.6 (0.2-1.0) mg/dl Direct Bilirubin 0.1 (0-0.2) mg/dl AST 21 (13-39) U/L ALT 11 (7-52) U/L Alkaline Phosphatase 43 (34-104) U/L Troponin I High Sens 4.6 (0-14) pg/ml Total Protein 6.7 (6.0-8.3) gm/dl Albumin 4.2 (3.4-5.0) gm/dl Procalcitonin < 0.02 (0-0.5) ng/ml Urine Color Yellow Urine Appearance Clear (Clear) Urine pH 6.0 (4.5-7.5) Ur Specific [place] 1.006 (1.000-1.030) Urine Protein Negative (Negative) Urine Glucose (UA) Negative (Negative) Urine Ketones Negative (Negative) Urine Blood 1+ H (Negative) Urine Nitrite Negative (Negative) Urine Bilirubin Negative (Negative) Urine Urobilinogen Negative (Negative) Ur Leukocyte Esterase Negative (Negative) Urine WBC (Auto) 0-5 (0-5) /hpf Urine RBC (Auto) 3-5 H (0-2) /hpf U Hyaline Cast (Auto) 0-2 (0-2) /lpf U Epithel Cells (Auto) 0-2 (0-2) /hpf Urine Bacteria (Auto) None Seen (None Seen) Imaging Data Attestation: I personally reviewed and interpreted this imaging study as follows: Radiologist's Impression: Abdomen/Pelvis CT 09/27/24 02:25 EXAM: CT abd pelvis wo con CLINICAL HISTORY: mid abd pain, Diarrhea TECHNIQUE: Contiguous axial images were obtained from the level of the diaphragm to the pubic symphysis without intravenous or oral contrast. Coronal and sagittal reconstructions were likewise performed and indicated to increase the sensitivity for detecting clinically relevant pathology. CT scan was performed according to ALARA (as low as reasonably achievable). COMPARISON: Compared with previous CT scan abdomen dated 12 September 2022. Only images available for comparison. FINDINGS: Few fibrotic bands are seen in visualized bilateral lung bases. Tip of electrodes seen in right atrium and right ventricle. Well defined cystic lesion measuring 25 x 22 x 32 mm (AP x TR x CC) seen in liver parenchyma at the level of portal bifurcation. Evaluation of the abdominal and pelvic visceral organs is limited without intravenous contrast. The unenhanced spleen, pancreas, and adrenal glands are grossly unremarkable. Post-cholecystectomy status. Surgical clips seen in gallbladder fossa region. The kidneys are normal in size and attenuation. Approximately 4 mm sized calculus seen in lower calyx of left kidney. There is no hydronephrosis or perinephric stranding. The ureters are normal in caliber. Few well defined cystic lesions are seen in right kidney - Requires further evaluation with contrast enhanced CT scan of abdomen. No adenopathy or fluid collections are seen. No evidence of focal or diffuse bowel wall thickening or evidence of bowel obstruction is seen. Multiple air filled outpouchings are seen arising from sigmoid colon; suggestive of colonic diverticulosis. No evident signs of diverticulitis. The aorta is normal in caliber. The urinary bladder is normal in contour. Pelvic viscera are grossly unremarkable. No aggressive appearing osseous lesions are identified. Grade II chronic wedging collapse of T12 vertebral body with approximately 40% vertebral body height loss. Spondylotic changes seen in lumbar spine in form of peridiscal osteophyte formation and facetal joint arthropathy. Total hip replacement prosthesis seen on left side. Old healed fractures of superior and inferior pubic rami on right side. Old healed fracture of sacral ala and body of sacrum on right side. Generalized osteoporosis. IMPRESSION: 1. Well defined cystic lesion in liver parenchyma at the level of portal bifurcation; possibility of biliary cystadenoma. Requires further evaluation with CECT abdomen. Stable finding. 2. Left renal calyceal calculus. Non-obstructive. Stable finding. 3. Few well defined cystic lesions in right kidney. Requires further evaluation with CECT abdomen. Stable finding. 4. Sigmoid colon diverticulosis. No signs of diverticulitis.Stable finding. 5. Grade II chronic wedging collapse of T12 vertebrae with approximately 40% vertebral body height loss. Stable finding. 6. Old healed fracture of superior and inferior pubic rami on right side. New finding. 7. Old healed fracture of sacral ala and body of sacrum on right side. new finding. Electronically signed by Ruben Barrett 09-27-2024 04:12 AM Chest X-Ray 09/27/24 02:25 EXAM: XR chest 1V portable CLINICAL HISTORY: Sepsis. TECHNIQUE: An X-ray image of the chest is obtained in AP projection. COMPARISON: 01/17/2024. FINDINGS: Pulmonary Parenchyma: Prominent perihilar bronchovascular markings bilaterally. Impression of subtle patchy airspace change in the right lower zone. No evidence of pleural effusion or pleural thickening. Heart and Mediastinum: The heart size appears enlarged. No mediastinal widening or masses. No hilar or mediastinal lymphadenopathy. Bony Thorax: Degenerative changes in the visualized skeleton. Soft Tissues: Soft tissues overlying the chest wall are unremarkable. A cardiac pacemaker is seen with its distal leads projected over the right atrium and right ventricular apex. Overlying chest leads are seen. IMPRESSION: 1. Enlarged heart with perihilar congestion(unchanged). 2. Impression of subtle patchy airspace change in the right lower zone(new), may represent infiltrates versus prominent bronchovascular markings. Clinical correlation is suggested. 3. No other change since the previous radiograph. Electronically signed by Johann Mathew 09-27-2024 03:28 AM MDM Narrative Prior records/ancillary studies reviewed and summarized above. Nursing notes reviewed. Additional history obtained from family. The patient's history was concerning for weakness, feeling sick, diarrhea and recent antibiotic use. Differential diagnosis: Etiologies such as C. difficile, stool infection, metabolic, infection, hypo/hyperglycemia, electrolyte abnormalities, cardiac sources, intracerebral event, toxicologic, neurologic, as well as others were entertained. Physical examination: As above. ER treatment provided: IV Lock An order was placed for continuous cardiac monitoring. The monitor shows a rate of 60-100 with a sinus rhythm per my interpretation. Zofran was ordered Zosyn was ordered for possible pneumonia On reassessment the patient felt better. Diagnostics interpretation by me: ECG: Ordered for weakness EKG: Paced rhythm with no Sgarbossa, rate of 91. Impression paced rhythm rate of 91 independently interpreted by myself The labs Independently Interpreted by myself revealed no worrisome leukocytosis. Negative procalcitonin. Negative lactic. Negative troponin. Negative urine. Blood cultures pending Imaging studies: Imaging was reviewed and read by radiology Consultation: A consultation was placed with the hospitalist. The case was discussed and diagnostics were reviewed. The patient was evaluated in the ER for further treatment. Exam and history seem consistent with pneumonia with generalized illness and diarrhea. Patient was feeling quite weak. She not feel comfortable going home. Medicine was consulted and the case was discussed. She will be evaluated by the hospitalist for admission. Patient is agreeable. Patient was not able to give a stool specimen at time of admission. Incidental findings were noted and will be reviewed with the patient by the hospitalist per their request. By the evaluation outlined above emergent etiologies such as electrolyte abnormalities, cardiac sources, intracerebral event, toxologic, neurologic, abnormalities blood glucose, metabolic, as well as others were deemed relatively unlikely. The pt informed about the findings as listed above. All questions were answered and pleased with the treatment. The chart was completed utilizing [employer] Speech voice recognition software. Grammatical errors, random word insertions, pronoun errors, and incomplete sentences are an occassional consequence of this system due to software limitations, ambient noise, and hardware issues. Any formal questions or concerns about the content, text, or information contained within the body of this dictation should be directly addressed to the physician physicians assistant for clarification. Impression & Plan CAP (community acquired pneumonia), Weakness, Acute diarrhea Discharge Plan Visit Data Chief Complaint: Illness Stated Complaint: PALPITATIONS, DIARRHEA FOR 1 WEEK ED Provider: Maximo Wilder ED Midlevel Provider: Radha Barraza Discharge Problem: CAP (community acquired pneumonia), Weakness, Acute diarrhea Patient Disposition: Admitted As Inpatient Condition: Good Discharge Instructions Interventions: ED Discharge Assessment Last Done: 09/27/24 05:08 Addendum September 28, 2024 04:43 HPI: The patient is an 83-year-old woman with a past medical history of bronchiectasis, atrial fibrillation status post ablation on Eliquis, diastolic heart failure, status post PPM, hypertension who presents emergency department for evaluation of diarrhea in setting of being treated for a sinus infection with Augmentin which was started on 09/22. Patient reports feeling palpitations, lightheadedness generalized weakness. Patient lives alone at [facility] and has had poor oral intake. A/P: EKG is paced without overt acute ischemia. Chest x-ray with patchy right lower lung field airspace opacity. WBC, H/H and platelet within normal limits. Chemistry without metabolic acidosis. Electrolytes LFTs unremarkable. High-sensitivity troponin 4.6, within normal limits. Procalcitonin is not elevated. UA without evidence of infection. CT abdomen pelvis demonstrates chronic findings without acute intra- abdominal process. IV fluid hydration provided and antibiotic treatment initiated with IV Zosyn. The patient was referred to the hospital service for admission for further management. I was consulted by the Advanced Practice Provider and was substantively involved in the patient's visit.This includes aspects of the HPI, MDM, diagnostic interpretations, and disposition/plan. I discussed the case with the NICO and agree with the findings and plan as documented in NICO Barraza's note. Discharge Problem: CAP (community acquired pneumonia) Qualifiers: Laterality: right Lung location: lower lobe of lung Qualified Code(s): J18.9 - Pneumonia, unspecified organism
[2024-09-27 02:57] LABS: Basophils # (auto) 0.05 K/uL (0.00-0.20); Basophils % (auto) 0.7 %; Eosinophils # (auto) 0.17 K/uL (0.00-0.50); Eosinophils % (auto) 2.4 %; Hematocrit (blood only) 42.5 % (37.0-47.0); Immature Granulocytes # (auto) 0.03 K/uL (0.01-0.20); Immature Granulocytes % (auto) 0.4 %; Lymphocytes # (auto) 1.75 K/uL (1.20-3.40); Lymphocytes % (auto) 24.8 %; Mean Corpuscular Hemoglobin 30.4 pg (25.0-34.0); Mean Corpuscular Hgb Conc 32.9 g/dL (32.0-36.0); Mean Corpuscular Volume 92.4 fL (80.0-100.0); Mean Platelet Volume 10.3 fL (9.4-12.4); Monocytes # (auto) 0.49 K/uL (0.11-0.59); Neutrophils # (auto) 4.56 K/uL (1.40-6.50); Neutrophils % (auto) 64.7 %; Platelet Count 172 K/uL (130-400); RDW Coefficient of Variation 13.9 % (11.5-14.5); RDW Standard Deviation 47.5 fL (36.4-46.3); White Blood Count 7.05 K/ul (4.8-10.8)
[2024-09-27 03:22] LABS: Albumin Level 4.2 gm/dl (3.4-5.0); BUN Creatinine Ratio 16.2 (10-20); Bilirubin,Total 0.6 mg/dl (0.2-1.0); Calcium 9.5 mg/dl (8.6-10.3); Creatinine Clr Calc Pharmacy 65.5 ml/min; Magnesium 2.1 mg/dl (1.7-2.4); Potassium 3.9 mmol/L (3.5-5.1); Total Protein 6.7 gm/dl (6.0-8.3)
[2024-09-27 03:26] LABS: Appearance Urine Clear (Clear); Bacteria Urine Automated None Seen (None Seen); Bilirubin Urine Negative (Negative); Blood Urine 1+ (Negative); Cast Urine Automated 0-2 /lpf (0-2); Color Urine Yellow; Epithelial Cell Urine Auto 0-2 /hpf (0-2); Glucose Urine UA Negative (Negative); Ketones Urine Negative (Negative); Leukocyte Esterase Urine Negative (Negative); Nitrite Urine Negative (Negative); Protein Urine Negative (Negative); Specific Gravity Urine 1.006 (1.000-1.030); Urobilinogen Urine Negative (Negative); WBC Urine Automated 0-5 /hpf (0-5)
--- NOTE | 2024-09-27 03:29 | XRay Report ---
EXAM: XR chest 1V portable CLINICAL HISTORY: Sepsis. TECHNIQUE: An X-ray image of the chest is obtained in AP projection. COMPARISON: 01/17/2024. FINDINGS: Pulmonary Parenchyma: Prominent perihilar bronchovascular markings bilaterally. Impression of subtle patchy airspace change in the right lower zone. No evidence of pleural effusion or pleural thickening. Heart and Mediastinum: The heart size appears enlarged. No mediastinal widening or masses. No hilar or mediastinal lymphadenopathy. Bony Thorax: Degenerative changes in the visualized skeleton. Soft Tissues: Soft tissues overlying the chest wall are unremarkable. A cardiac pacemaker is seen with its distal leads projected over the right atrium and right ventricular apex. Overlying chest leads are seen. IMPRESSION: 1. Enlarged heart with perihilar congestion(unchanged). 2. Impression of subtle patchy airspace change in the right lower zone(new), may represent infiltrates versus prominent bronchovascular markings. Clinical correlation is suggested. 3. No other change since the previous radiograph. Electronically signed by Johann Mathew 09-27-2024 03:28 AM
[2024-09-27 03:38] LABS: Bilirubin Direct 0.1 mg/dl (0-0.2); Troponin I High Sensitivity 4.6 pg/ml (0-14)
[2024-09-27] MEDS: PIPERACILLIN/TAZOBACTAM 4.5 GM/100 ML BAG IV ONE (03:49)
--- NOTE | 2024-09-27 04:12 | CT Scan Report ---
EXAM: CT abd pelvis wo con CLINICAL HISTORY: mid abd pain, Diarrhea TECHNIQUE: Contiguous axial images were obtained from the level of the diaphragm to the pubic symphysis without intravenous or oral contrast. Coronal and sagittal reconstructions were likewise performed and indicated to increase the sensitivity for detecting clinically relevant pathology. CT scan was performed according to ALARA (as low as reasonably achievable). COMPARISON: Compared with previous CT scan abdomen dated 12 September 2022. Only images available for comparison. FINDINGS: Few fibrotic bands are seen in visualized bilateral lung bases. Tip of electrodes seen in right atrium and right ventricle. Well defined cystic lesion measuring 25 x 22 x 32 mm (AP x TR x CC) seen in liver parenchyma at the level of portal bifurcation. Evaluation of the abdominal and pelvic visceral organs is limited without intravenous contrast. The unenhanced spleen, pancreas, and adrenal glands are grossly unremarkable. Post-cholecystectomy status. Surgical clips seen in gallbladder fossa region. The kidneys are normal in size and attenuation. Approximately 4 mm sized calculus seen in lower calyx of left kidney. There is no hydronephrosis or perinephric stranding. The ureters are normal in caliber. Few well defined cystic lesions are seen in right kidney - Requires further evaluation with contrast enhanced CT scan of abdomen. No adenopathy or fluid collections are seen. No evidence of focal or diffuse bowel wall thickening or evidence of bowel obstruction is seen. Multiple air filled outpouchings are seen arising from sigmoid colon; suggestive of colonic diverticulosis. No evident signs of diverticulitis. The aorta is normal in caliber. The urinary bladder is normal in contour. Pelvic viscera are grossly unremarkable. No aggressive appearing osseous lesions are identified. Grade II chronic wedging collapse of T12 vertebral body with approximately 40% vertebral body height loss. Spondylotic changes seen in lumbar spine in form of peridiscal osteophyte formation and facetal joint arthropathy. Total hip replacement prosthesis seen on left side. Old healed fractures of superior and inferior pubic rami on right side. Old healed fracture of sacral ala and body of sacrum on right side. Generalized osteoporosis. IMPRESSION: 1. Well defined cystic lesion in liver parenchyma at the level of portal bifurcation; possibility of biliary cystadenoma. Requires further evaluation with CECT abdomen. Stable finding. 2. Left renal calyceal calculus. Non-obstructive. Stable finding. 3. Few well defined cystic lesions in right kidney. Requires further evaluation with CECT abdomen. Stable finding. 4. Sigmoid colon diverticulosis. No signs of diverticulitis.Stable finding. 5. Grade II chronic wedging collapse of T12 vertebrae with approximately 40% vertebral body height loss. Stable finding. 6. Old healed fracture of superior and inferior pubic rami on right side. New finding. 7. Old healed fracture of sacral ala and body of sacrum on right side. new finding. Electronically signed by Ruben Barrett 09-27-2024 04:12 AM
[2024-09-27] MEDS: methylPREDNISolone 125 MG/2 ML VIAL IV STA (04:37)
[2024-09-27] MEDS: diphenhydrAMINE 50 MG/ML VIAL IV STA (04:39)
[2024-09-27] MEDS: methylPREDNISolone 125 MG/2 ML VIAL ONE (04:42)
[2024-09-27] MEDS: diphenhydrAMINE 50 MG/ML VIAL ONE (04:42)
[2024-09-27 04:53] VITALS: RESP 16
[2024-09-27] MEDS ORDERED: ALBUTEROL HFA 8 GM INHALER INH PRN (05:07)
[2024-09-27] MEDS ORDERED: ALBUT/IPRATROP 3MG/0.5MG NEB 3 ML VIAL NEB PRN (05:07)
[2024-09-27] MEDS ORDERED: NON-FORMULARY MEDICATION (Peg 400-Propylene Glycol (Pf) [Systane (Pf)] 0.4-0.3 % Dropperet OP PRN (05:07)
[2024-09-27] MEDS ORDERED: NITROGLYCERIN SL 0.4 MG/TAB TAB SL PRN (05:07)
[2024-09-27] MEDS ORDERED: SODIUM CHLOR 7% 4 ML NEB INH PRN (05:07)
--- NOTE | 2024-09-27 05:12 | History & Physical Report ---
Date of Service September 27, 2024 Assessment & Plan (1) Weakness: Plan: 83-year-old female with past medical history significant for prediabetes, bronchiectasis, dyspnea on exertion, restrictive lung disease, hiatal hernia, hyperlipidemia, postoperative hypothyroidism, primary hyperparathyroidism, chronic atrial fibrillation, status post AV brayan ablation, status post pacemaker, severe tricuspid 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, chronic diastolic CHF, hypertension, history of compression fracture of spine, senile osteoporosis, low back pain, depression, presents with diarrhea and not feeling well. Patient was recently started on Augmentin for sinusitis. She was having nasal drainage and after starting antibiotics nasal drainage stopped. She was started on Augmentin on 09/21/2024 per [facility]. Last few days patient was having diarrhea, several episodes. Denies any blood in the stools. Was feeling dehydrated and weak. And today blood pressure was running high in 170s. She was also having palpitations. Which prompted her to come to the ER. She has also had some so reness in the left rib cage. Denies any fevers. No headache. Vision is okay. She has history of bronchiectasis and has some cough. Denies any shortness of breath. No fevers. No abdominal pain. Micturating okay. Hemodynamics are okay. In the ER she was given Zosyn for possible pneumonia on chest x-ray. After having a dose of Zosyn patient developed hives and Benadryl and steroid was given. Patient says history of rash for penicillin long-time back but she was tolerating Augmentin okay for last several days. Weakness Diarrhea Diarrhea mostly from Augmentin Will follow stool studies Full liquid diet for now IV fluids PT OT when stable Questionable pneumonia on chest x-ray Patient has no fever and no shortness of breath She history of bronchitis and has some cough Will follow CT chest In the ER she received Zosyn but developed hives and received Benadryl and methylprednisolone Sinusitis Received about 5 days of Augmentin. Currently symptoms improved Will hold on Augmentin for now Cystic lesions in liver Cyst in the kidneys On the CAT scan without contrast Patient is allergic to IV contrast Can follow as outpatient History of bronchiectasis Restrictive lung disease Continue home inhalers Nebs as needed Chronic diastolic CHF Severe tricuspid 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 Holding torsemide Getting fluids Monitor for volume overload History of chronic atrial fibrillation Status post AV brayan ablation Status post pacemaker, non-MRI compatible as per patient On metoprolol tartrate and Eliquis Will monitor Hypertension On losartan and metoprolol Will monitor Hyperlipidemia On statin Prediabetes Will follow HbA1c levels Hypothyroidism On Synthyroid Depression On Zoloft DVT prophylaxis On Eliquis Disposition Med/telemetry Full code. History of Present Illness Chief Complaint: Diarrhea, palpitations and elevated blood pressure Primary Care Provider: Nahid Rodgers MD 83-year-old female with past medical history significant for prediabetes, bronchiectasis, dyspnea on exertion, restrictive lung disease, hiatal hernia, hyperlipidemia, postoperative hypothyroidism, primary hyperparathyroidism, chronic atrial fibrillation, status post AV brayan ablation, status post pacemaker, severe tricuspid 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, chronic diastolic CHF, hypertension, history of compression fracture of spine, senile osteoporosis, low back pain, depression, presents with diarrhea and not feeling well. Patient was recently started on Augmentin for sinusitis. She was having nasal drainage and after starting antibiotics nasal drainage stopped. She was started on Augmentin on 09/21/2024 per [facility]. Last few days patient was having diarrhea, several episodes. Denies any blood in the stools. Was feeling dehydrated and weak. And today blood pressure was running high in 170s. She was also having palpitations. Which prompted her to come to the ER. She has also had some soreness in the left rib cage. Denies any fevers. No headache. Vision is okay. She has history of bronchiectasis and has some cough. Denies any shortness of breath. No fevers. No abdominal pain. Micturating okay. Hemodynamics are okay. In the ER she was given Zosyn for possible pneumonia on chest x-ray. After having a dose of Zosyn patient developed hives and Benadryl and steroid was given. Patient says history of rash for penicillin long-time back but she was tolerating Augmentin okay for last several days. Past medical history. As mentioned above. Past surgical history. Sphincterectomy after gallbladder surgery. Left total knee arthroplasty. Benign breast lump removed. Colonoscopy. Cystoscopy. EGD. EGD with endoscopic ultrasound. Parathyroidectomy. Creation of pericardial window. Left knee arthroscopy. Ligation of oviducts. Pacemaker insertion. Partial removal of thyroid lobe. Appendectomy. Tonsillectomy. Right cataracts. Cholecystectomy. Sinus surgery. Left total hip replacement. Social history. No smoking. No alcohol use. No drug use. Family history. Father had arthritis. Lung cancer. CAD. Ruptured aortic artery. Hypertension. Lung disorder. Depression. Stroke. Mother had arthritis. Dementia. Cataracts. Heart failure. Allergies Allergy/AdvReac Type Severity Reaction Status Date / Time acetylcysteine Allergy Severe caused Verified 09/09/24 10:06 chest tightness, PVB and AFib Iodinated Contrast Media Allergy Severe ANAPHYLAXIS Verified 09/09/24 10:06 rivaroxaban Allergy Severe PERICARDIAL Verified 09/09/24 10:06 EFFUSION shellfish derived Allergy Severe "Seafood" Verified 09/09/24 10:06 -- ANAPHYLAXIS warfarin Allergy Severe "NUMBERS Verified 09/09/24 10:06 WENT TO HIGH" cay[place] Allergy Intermediate hives Verified 09/09/24 10:06 erythromycin base Allergy Intermediate RASH Verified 09/09/24 10:06 simvastatin Allergy Intermediate RASH Verified 09/09/24 10:06 Osexiiv-WOV-YaZ Reductase Allergy Intermediate Rash Verified 09/09/24 10:06 Inhibitor [Byyzpsr-Ehm-Akv Reductase Inhibitor] walnut Allergy Intermediate Rash WITH Verified 09/09/24 10:06 black walnut capsaicin Allergy Mild hives Verified 09/09/24 10:06 celecoxib Allergy Mild RASH Verified 09/09/24 10:06 nystatin Allergy Mild RASH Verified 09/09/24 10:06 azithromycin Allergy Unknown CAN'T Verified 09/09/24 10:06 REMEMBER omeprazole Allergy Unknown Unknown Verified 09/09/24 10:06 alendronate sodium Allergy GI upset Verified 09/09/24 10:06 lumiracoxib Allergy diarrhea Verified 09/09/24 10:06 Sulfa (Sulfonamide Allergy nausea, Verified 09/09/24 10:06 Antibiotics) vomiting moxifloxacin [From Avelox] AdvReac Severe Hallucinati Verified 09/09/24 10:06 ng lansoprazole [From Prevacid] AdvReac Intermediate FELT Verified 09/09/24 10:06 BLOATED AFTER TAKING Home Medications Medication Instructions Recorded Confirmed Type acetaminophen 325 mg tablet 325 mg PO Q6H PRN Pain 08/28/18 09/27/24 History (Tylenol) apixaban 5 mg tablet (Eliquis) 5 mg PO BID 08/28/18 09/27/24 History levothyroxine 100 mcg tablet 100 mcg PO QAM 08/28/18 09/27/24 History metoprolol tartrate 50 mg tablet See Rx Instructions .Route .COMPLEX 08/28/18 09/27/24 History sertraline 25 mg tablet 25 mg PO QAM 08/28/18 09/27/24 History rosuvastatin 5 mg tablet 5 mg PO MOWEFR@0900 09/30/18 09/27/24 History famotidine 20 mg tablet 20 mg PO BID 08/03/20 09/27/24 History cholecalciferol (vitamin D3) 25 2,000 unit PO QAM 09/14/20 09/27/24 History mcg (1,000 unit) capsule (Vitamin D3) cyclosporine 0.05 % eye drops 1 drp ophthalmic (eye) Q12H 12/14/20 09/27/24 History (Restasis MultiDose) Flutter Valve #1 ea 08/09/21 09/27/24 Rx losartan 25 mg tablet 25 mg PO HS 08/09/21 09/27/24 History Wheeled Walker #1 ea 12/19/21 09/27/24 Rx fswtmnbg-wlpi-mgdu 8 mg-folic 400 1 tab PO QAM 02/14/22 09/27/24 History mcg-K 50 mcg-lutein 300 mcg tablet (Centrum Silver Women) Incentive Spirometer #1 ea 02/21/22 09/27/24 Rx torsemide 5 mg tablet 5 mg PO Q OTHER DAY Edema 08/08/22 09/27/24 History docusate sodium 100 mg tablet 200 mg PO DAILY PRN Constipation 09/18/22 09/27/24 History food supplemt, lactose-reduced 1 ea PO DAILY 09/18/22 09/27/24 History (Ensure oral liquid) peg 400-propylene glycol (PF) 0.4 1 drp ophthalmic (eye) QID PRN Dry 09/18/22 09/27/24 History %-0.3 % eye drops in a dropperette Eyes (Systane (PF)) nebulizer accessories #1 ea 11/18/22 09/27/24 Rx amoxicillin 500 mg tablet 2,000 mg PO DIRECTED PRN 07/22/23 09/27/24 History prophylaxis dextromethorphan-guaifenesin 10 1 ml PO DAILY PRN Cough 07/22/23 09/27/24 H istory mg-100 mg/5 mL oral liquid (Tussin DM) Miscellaneous Pulmonary Supply #1 ea 11/17/23 09/27/24 Rx hydrocortisone 2.5 % topical cream 1 applic topical TID PRN Other 01/17/24 09/27/24 History nystatin 100,000 unit/gram topical 1 applic topical BID PRN Other 01/17/24 09/27/24 History cream umeclidinium 62.5 mcg-vilanterol 1 inh inhalation DAILY #3 Inhalers 03/02/24 09/27/24 Rx 25 mcg/actuation powdr for inhalation (Anoro Ellipta) Ventolin HFA 90 mcg/actuation 2 puff inhalation Q4H PRN 08/25/24 09/27/24 Rx aerosol inhaler (albuterol sulfate) shortness of breath or wheezing #3 Inhalers denosumab 60 mg/mL subcutaneous mg subcut 09/09/24 09/09/24 History syringe (Prolia) sodium chloride 7 % for 4 ml inhalation BID PRN SOB 09/27/24 09/27/24 History nebulization Past Med/Surg History Problem List (Updated 09/27/24 @ 03:48 by Radha Barraza PA-C) Acute diarrhea (Acute) Weakness (Acute) CAP (community acquired pneumonia) (Acute) Osteoarthritis of left shoulder Recurrent UTI Urinary urgency Microscopic hematuria Urinary symptom or sign Tendinitis of right rotator cuff (HFpEF) heart failure with preserved ejection fraction Coagulopathy (Acute) Acute head trauma (Acute) Fall (Acute) Acute right hip pain (Acute) Closed pelvic fracture (Acute) Impingement syndrome of shoulder Status post left hip replacement (~10/2022) Pulmonary hypertension Mild with PASP 36 mmHg. Likely type II for possible combination of type III per pulm, follows with [facility] Hypothyroidism (Chronic) GERD (gastroesophageal reflux disease) (Chronic) HLD (hyperlipidemia) (Chronic) Bronchiectasis (Chronic) Osteoarthritis (Chronic) Hx of endoscopy Paroxysmal atrial fibrillation (Chronic) Osteoporosis (Chronic) History of pericarditis (Chronic) "November 2016. Suspected hemopericardium secondary to rivaroxaban." History of pancreatitis (Chronic) Pericardial effusion (Chronic) Gastroenteritis (Acute) Chest pain H/O arthroscopic knee surgery (Chronic) H/O partial thyroidectomy (Chronic) History of tonsillectomy (Chronic) History of appendectomy (Chronic) Hx of cholecystectomy (Chronic) History of sinus surgery (Chronic) History of tubal ligation (Chronic) Status post atrioventricular brayan ablation (Chronic) Status post cardiac pacemaker procedure (Chronic) Lower extremity pain (Acute) Encounter for pre-operative examination Rotator cuff tear, left Osteoarthritis of shoulders, bilateral Pulmonary hyperinflation Rotator cuff arthropathy of left shoulder Back pain COPD (chronic obstructive pulmonary disease) Contusion of knee Greater trochanteric bursitis of left hip Exertional shortness of breath Allergic rhinitis with postnasal drip Pulmonary nodule Abnormal chest CT Restrictive lung disease Osteoarthritis, hip, bilateral Osteoarthritis of left hip Chronic anticoagulation Chronic left hip pain Primary hyperparathyroidism H/O partial thyroidectomy 1975 follicular adenoma of left lobe Tricuspid valve 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 Severe TR per 03/28/22 echo Schatzki's ring Pericardial effusion with cardiac tamponade 2018 > pericardial window ([facility]) Pacemaker Dual chamber, Medtronic, implanted [address] Chau Atrial fibrillation Dx many years ago, s/p multiple cardioversions, s/p dual chamber PPM 2016 with AV junction ablation Bronchiectasis Follows with Dr. Clark Medical History (HFpEF) heart failure with preserved ejection fraction Blood clot in eye CKD (chronic kidney disease) stage 3, GFR 30-59 ml/min Chronic diastolic (congestive) heart failure Hypothyroidism Pulmonary hypertension Primary hyperparathyroidism Tricuspid valve 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 Pericardial effusion with cardiac tamponade Schatzki's ring Hiatal hernia Pulmonary scarring History of ovarian cyst Osteopenia GERD (gastroesophageal reflux disease) History of depression Pacemaker Atrial fibrillation Hypertension Hyperlipidemia Bronchiectasis Surgical History H/O hand surgery S/P transesophageal echocardiogram ([facility]) H/O partial thyroidectomy H/O toe surgery History of cataract surgery S/P pericardial window creation History of atrioventricular brayan ablation History of anesthesia reaction History of bilateral tubal ligation History of breast biopsy History of total knee replacement History of cholecystectomy History of appendectomy History of cystoscopy History of esophagogastroduodenoscopy (EGD) History of colonoscopy History of tonsillectomy History of tooth extraction History of sinus surgery History of cardiac cath History of cardioversion Family History (Updated 01/17/24 @ 13:00 by Imani Porter PA-C) Father Heart disease from scarlet fever Mother Dementia Heart disease Brother Heart disease from rheumatic fever Sister Hypothyroidism Social History Smoking Status: Never smoker Second Hand Exposure: No; Do You Dip or Chew Tobacco: No; Hx Alcohol Use: Yes Alcohol type: wine Hx Substance Use: No Preferred Language: Erit[place] Communication Ability: Effective Hogshead Opener Required: No Beliefs That Will Affect Care: None Current Living Situation: Alone Current Living Situation Comment: [place] Other Information That Helps Us Care for You: No Feels Safe at Home: Yes Safety Concerns: Feels Safe At This Time Assistive Devices: Glasses, Raised Toilet Seat, Walker and Other Assistive Devices Comment: shower chair Review of Systems Review of Systems: All systems reviewed & are unremarkable except as noted in HPI & below Physical Exam Physical Exam: General- Not in distress Head- atraumatic Eyes- PERRL. ENT- oropharynx clear Neck- supple, no JVD. Lungs- clear to auscultation no wheezing or crackles Heart- regular rhythm; no murmur, no gallop. Abdomen- normal bowel sounds, soft, nontender, no distension Extremities- no pretibial edema, no erythema seen Neuro- alert, oriented PERRL, no facial palsy; no dysarthria; moves extremities Results & Data Results & Data Vital Signs (Past 12 Hours) Vital Signs Temp Pulse Pulse Resp BP BP Pulse Ox 09/27/24 04:52 91 H 16 156/90 H 95 09/27/24 03:14 77 18 151/88 H 95 09/27/24 02:42 70 09/27/24 02:28 70 16 178/88 H 97 09/27/24 02:27 97 09/27/24 02:16 36.5 C 76 20 191/111 H 97 O2 Del Method 09/27/24 04:52 Room Air 09/27/24 03:14 Room Air 09/27/24 02:42 09/27/24 02:28 Room Air 09/27/24 02:27 Room Air 09/27/24 02:16 Room Air Diagnostic Findings Laboratory Results WBC 7.05 K/ul (4.8-10.8) 09/27/24 02:20 RBC 4.60 M/uL (4.20-5.40) 09/27/24 02:20 Hgb 14.0 g/dl (12.0-16.0) 09/27/24 02:20 Hct 42.5 % (37.0-47.0) 09/27/24 02:20 MCV 92.4 fL (80.0-100.0) 09/27/24 02:20 MCH 30.4 pg (25.0-34.0) 09/27/24 02:20 MCHC 32.9 g/dL (32.0-36.0) 09/27/24 02:20 RDW Std Deviation 47.5 fL (36.4-46.3) H 09/27/24 02:20 RDW Coeff of Woo 13.9 % (11.5-14.5) 09/27/24 02:20 Plt Count 172 K/uL (130-400) 09/27/24 02:20 MPV 10.3 fL (9.4-12.4) 09/27/24 02:20 Immature Gran % (Auto) 0.4 % 09/27/24 02:20 Neut % (Auto) 64.7 % 09/27/24 02:20 Lymph % (Auto) 24.8 % 09/27/24 02:20 Nuckolls % (Auto) 7.0 % 09/27/24 02:20 Eos % (Auto) 2.4 % 09/27/24 02:20 Baso % (Auto) 0.7 % 09/27/24 02:20 Neut # (Auto) 4.56 K/uL (1.40-6.50) 09/27/24 02:20 Lymph # (Auto) 1.75 K/uL (1.20-3.40) 09/27/24 02:20 Nuckolls # (Auto) 0.49 K/uL (0.11-0.59) 09/27/24 02:20 Eos # (Auto) 0.17 K/uL (0.00-0.50) 09/27/24 02:20 Baso # (Auto) 0.05 K/uL (0.00-0.20) 09/27/24 02:20 Immature Gran # (Auto) 0.03 K/uL (0.01-0.20) 09/27/24 02:20 Sodium 138 mmol/L (136-145) 09/27/24 02:20 Potassium 3.9 mmol/L (3.5-5.1) 09/27/24 02:20 Chloride 105 mmol/L (98-107) 09/27/24 02:20 Carbon Dioxide 29 mmol/L (21-32) 09/27/24 02:20 Anion Gap 4 (3-11) 09/27/24 02:20 BUN 12 mg/dl (6-23) 09/27/24 02:20 Creatinine 0.74 mg/dl (0.6-1.2) 09/27/24 02:20 Est Cr Clr Drug Dosing 65.5 ml/min 09/27/24 02:20 eGFR 79.73 09/27/24 02:20 BUN/Creatinine Ratio 16.2 (10-20) 09/27/24 02:20 Glucose 127 mg/dl (70-99(Fasting)) H 09/27/24 02:20 Lactate 1.7 mmol/L (0.4-2.0) 09/27/24 02:45 Calcium 9.5 mg/dl (8.6-10.3) 09/27/24 02:20 Magnesium 2.1 mg/dl (1.7-2.4) 09/27/24 02:20 Total Bilirubin 0.6 mg/dl (0.2-1.0) 09/27/24 02:20 Direct Bilirubin 0.1 mg/dl (0-0.2) 09/27/24 02:20 AST 21 U/L (13-39) 09/27/24 02:20 ALT 11 U/L (7-52) 09/27/24 02:20 Alkaline Phosphatase 43 U/L (34-104) 09/27/24 02:20 Troponin I High Sens 4.6 pg/ml (0-14) 09/27/24 02:20 Total Protein 6.7 gm/dl (6.0-8.3) 09/27/24 02:20 Albumin 4.2 gm/dl (3.4-5.0) 09/27/24 02:20 Procalcitonin < 0.02 ng/ml (0-0.5) 09/27/24 02:20 Urine Color Yellow 09/27/24 03:14 Urine Appearance Clear (Clear) 09/27/24 03:14 Urine pH 6.0 (4.5-7.5) 09/27/24 03:14 Ur Specific [place] 1.006 (1.000-1.030) 09/27/24 03:14 Urine Protein Negative (Negative) 09/27/24 03:14 Urine Glucose (UA) Negative (Negative) 09/27/24 03:14 Urine Ketones Negative (Negative) 09/27/24 03:14 Urine Blood 1+ (Negative) H 09/27/24 03:14 Urine Nitrite Negative (Negative) 09/27/24 03:14 Urine Bilirubin Negative (Negative) 09/27/24 03:14 Urine Urobilinogen Negative (Negative) 09/27/24 03:14 Ur Leukocyte Esterase Negative (Negative) 09/27/24 03:14 Urine WBC (Auto) 0-5 /hpf (0-5) 09/27/24 03:14 Urine RBC (Auto) 3-5 /hpf (0-2) H 09/27/24 03:14 U Hyaline Cast (Auto) 0-2 /lpf (0-2) 09/27/24 03:14 U Epithel Cells (Auto) 0-2 /hpf (0-2) 09/27/24 03:14 Urine Bacteria (Auto) None Seen (None Seen) 09/27/24 03:14 Impressions Abdomen/Pelvis CT 09/27/24 02:25 EXAM: CT abd pelvis wo con CLINICAL HISTORY: mid abd pain, Diarrhea TECHNIQUE: Contiguous axial images were obtained from the level of the diaphragm to the pubic symphysis without intravenous or oral contrast. Coronal and sagittal reconstructions were likewise performed and indicated to increase the sensitivity for detecting clinically relevant pathology. CT scan was performed according to ALARA (as low as reasonably achievable). COMPARISON: Compared with previous CT scan abdomen dated 12 September 2022. Only images available for comparison. FINDINGS: Few fibrotic bands are seen in visualized bilateral lung bases. Tip of electrodes seen in right atrium and right ventricle. Well defined cystic lesion measuring 25 x 22 x 32 mm (AP x TR x CC) seen in liver parenchyma at the level of portal bifurcation. Evaluation of the abdominal and pelvic visceral organs is limited without intravenous contrast. The unenhanced spleen, pancreas, and adrenal glands are grossly unremarkable. Post-cholecystectomy status. Surgical clips seen in gallbladder fossa region. The kidneys are normal in size and attenuation. Approximately 4 mm sized calculus seen in lower calyx of left kidney. There is no hydronephrosis or perinephric stranding. The ureters are normal in caliber. Few well defined cystic lesions are seen in right kidney - Requires further evaluation with contrast enhanced CT scan of abdomen. No adenopathy or fluid collections are seen. No evidence of focal or diffuse bowel wall thickening or evidence of bowel obstruction is seen. Multiple air filled outpouchings are seen arising from sigmoid colon; suggestive of colonic diverticulosis. No evident signs of diverticulitis. The aorta is normal in caliber. The urinary bladder is normal in contour. Pelvic viscera are grossly unremarkable. No aggressive appearing osseous lesions are identified. Grade II chronic wedging collapse of T12 vertebral body with approximately 40% vertebral body height loss. Spondylotic changes seen in lumbar spine in form of peridiscal osteophyte formation and facetal joint arthropathy. Total hip replacement prosthesis seen on left side. Old healed fractures of superior and inferior pubic rami on right side. Old healed fracture of sacral ala and body of sacrum on right side. Generalized osteoporosis. IMPRESSION: 1. Well defined cystic lesion in liver parenchyma at the level of portal bifurcation; possibility of biliary cystadenoma. Requires further evaluation with CECT abdomen. Stable finding. 2. Left renal calyceal calculus. Non-obstructive. Stable finding. 3. Few well defined cystic lesions in right kidney. Requires further evaluation with CECT abdomen. Stable finding. 4. Sigmoid colon diverticulosis. No signs of diverticulitis.Stable finding. 5. Grade II chronic wedging collapse of T12 vertebrae with approximately 40% vertebral body height loss. Stable finding. 6. Old healed fracture of superior and inferior pubic rami on right side. New finding. 7. Old healed fracture of sacral ala and body of sacrum on right side. new finding. Electronically signed by Ruben Barrett 09-27-2024 04:12 AM Chest X-Ray 09/27/24 02:25 EXAM: XR chest 1V portable CLINICAL HISTORY: Sepsis. TECHNIQUE: An X-ray image of the chest is obtained in AP projection. COMPARISON: 01/17/2024. FINDINGS: Pulmonary Parenchyma: Prominent perihilar bronchovascular markings bilaterally. Impression of subtle patchy airspace change in the right lower zone. No evidence of pleural effusion or pleural thickening. Heart and Mediastinum: The heart size appears enlarged. No mediastinal widening or masses. No hilar or mediastinal lymphadenopathy. Bony Thorax: Degenerative changes in the visualized skeleton. Soft Tissues: Soft tissues overlying the chest wall are unremarkable. A cardiac pacemaker is seen with its distal leads projected over the right atrium and right ventricular apex. Overlying chest leads are seen. IMPRESSION: 1. Enlarged heart with perihilar congestion(unchanged). 2. Impression of subtle patchy airspace change in the right lower zone(new), may represent infiltrates versus prominent bronchovascular markings. Clinical correlation is suggested. 3. No other change since the previous radiograph. Electronically signed by Johann Mathew 09-27-2024 03:28 AM ECG Additional Comments: ECG. Ventricular paced rhythm rate of 91. QTc 514 Code Status & VTE Plan VTE Prophylaxis Plan VTE Prophylaxis will be ordered: Yes
[2024-09-27] MEDS ORDERED: guaiFENesin/DEXTROM SYRUP 100MG/10MG 5ML UDC PO PRN (05:26)
[2024-09-27] MEDS ORDERED: ARTIFICIAL TEARS OP PRN (05:27)
[2024-09-27] MEDS: LACTATED RINGER'S 1,000 ML IV SCH (06:28)
[2024-09-27 07:06] LABS: Basophils # (auto) 0.03 K/uL (0.00-0.20); Basophils % (auto) 0.5 %; Eosinophils # (auto) 0.08 K/uL (0.00-0.50); Eosinophils % (auto) 1.4 %; Hematocrit (blood only) 39.8 % (37.0-47.0); Hemoglobin 13.3 g/dl (12.0-16.0); Immature Granulocytes # (auto) 0.02 K/uL (0.01-0.20); Immature Granulocytes % (auto) 0.3 %; Lymphocytes # (auto) 0.73 K/uL (1.20-3.40); Lymphocytes % (auto) 12.7 %; Mean Corpuscular Hemoglobin 30.9 pg (25.0-34.0); Mean Corpuscular Hgb Conc 33.4 g/dL (32.0-36.0); Mean Corpuscular Volume 92.6 fL (80.0-100.0); Mean Platelet Volume 10.1 fL (9.4-12.4); Monocytes # (auto) 0.22 K/uL (0.11-0.59); Monocytes % (auto) 3.8 %; Neutrophils # (auto) 4.65 K/uL (1.40-6.50); Neutrophils % (auto) 81.3 %; Platelet Count 139 K/uL (130-400); RDW Coefficient of Variation 13.9 % (11.5-14.5); RDW Standard Deviation 47.6 fL (36.4-46.3); White Blood Count 5.73 K/ul (4.8-10.8)
--- NOTE | 2024-09-27 07:07 | CT Scan Report ---
EXAM: CT chest diagnostic wo con CLINICAL HISTORY: pneumonia? cxr findings TECHNIQUE: Contiguous axial images were obtained from the neck base through the upper abdomen without contrast. In addition, sagittal and coronal reconstructions were performed to potentially increase the sensitivity for the detection of disease. CT scan was performed according to ALARA (as low as reasonably achievable). COMPARISON: CT, 01/29/2022 00:47:06 [employer] FINDINGS: Fibro-atelectatic bands seen in bilateral lower lobes. No focal areas of consolidation. No pulmonary nodules are seen. The central airways are patent. There are no pleural effusions. No pneumothorax is seen. Evaluation of the mediastinum and ramila is limited due to the lack of intravenous contrast. No axillary or mediastinal adenopathy is identified. The thyroid is unremarkable. The heart, aorta, and pulmonary arteries are of normal size and configuration. Cardiac pacemaker seen in place. There are no appreciable coronary artery and aortic atherosclerotic calcifications. No pericardial effusion is identified. Imaged portions of the upper abdomen are unremarkable. Old compression fracture of T12 vertebral body. Partial block vertebra with rudimentary intervertebral discs seen through T3 to T7 levels. IMPRESSION: 1. 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 2. No interval change. Electronically signed by Ruben Barrett 09-27-2024 07:07 AM
[2024-09-27 07:23] LABS: BUN Creatinine Ratio 15.3 (10-20); Potassium 4.2 mmol/L (3.5-5.1)
[2024-09-27] MEDS: CEROVITE ADV FORMULA TAB PO SCH (07:54)
[2024-09-27] MEDS: ROSUVASTATIN CALCIUM 5 MG TAB PO SCH (07:54)
[2024-09-27] MEDS: CHOLECALCIFEROL 25 MCG (1000 UNITS) TAB PO SCH (07:54)
[2024-09-27] MEDS: LEVOTHYROXINE SODIUM 100 MCG TABLET PO SCH (07:55)
[2024-09-27] MEDS: SERTRALINE HCL 50 MG TABLET PO SCH (07:55)
[2024-09-27] MEDS: APIXABAN 5 MG TABLET PO SCH (07:55)
[2024-09-27] MEDS: METOPROLOL TARTRATE 50 MG TAB PO SCH (07:55)
[2024-09-27] MEDS: UMECLIDINIUM/VILANTEROL 62.5/25MCG 7 PUFFS/INHALER INH SCH (08:00)
[2024-09-27] MEDS: FAMOTIDINE 20 MG TAB PO SCH (08:01)
[2024-09-27] MEDS ORDERED: NON-FORMULARY MEDICATION (Food Supplemt, Lactose-Reduced [Ensure] Liquid) PO SCH (09:00)
[2024-09-27] MEDS: ACETAMINOPHEN 1,000 MG/100 ML VIAL IV STA (09:21)
[2024-09-27 11:33] VITALS: BP 129/79; TEMP 97.3; O2SAT 94
--- NOTE | 2024-09-27 12:37 | Discharge Summary ---
Discharge Summary Date of Service September 27, 2024 Principal Dx & Hospital Course #1 = Principal Diagnosis (1) Weakness: Ms. Penn is an 83-year-old female with past medical history significant for prediabetes, bronchiectasis, dyspnea on exertion, restrictive lung disease, hiatal hernia, hyperlipidemia, postoperative hypothyroidism, primary hyperparathyroidism, chronic atrial fibrillation, status post AV brayan ablation, status post pacemaker, severe tricuspid 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, chronic diastolic CHF, hypertension, history of compression fracture of spine, senile osteoporosis, low back pain, depression admitted for 5 days of diarrhea and weakness. Patient no son to be hypertensive; however, resolved with fluids and tylenol. Patient without diarrhea during admission and tolerating diet. No medication adjustments were made. There was question of a pneumonia, however, CT revealed chronic changes consistent with known bronchiectasis. On day of discharge, patient was eating well and without diarrhea. She denied any further concerns. #Diarrhea, 2/2 Augmentin resolved #Weakness resolved Resolved encouraged po intake #Bronchectiasis #Questionable pneumonia on chest x-ray ct chest with chronic changes, no sign of superimposed infection In the ER she received Zosyn but developed hives and received Benadryl and methylprednisolone #Sinusitis resolved for now #Cystic lesions in liver #Cyst in the kidneys On the CAT scan without contrast Patient is allergic to IV contrast follow as outpatient #Restrictive lung disease Continue home inhalers Nebs as needed #Chronic diastolic CHF Severe tricuspid 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 resume home medications #chronic atrial fibrillation #Status post AV brayan ablation #Status post pacemaker, non-MRI compatible as per patient On metoprolol tartrate and Eliquis #Hypertension On losartan and metoprolol #Hyperlipidemia On statin #Hypothyroidism On Synthyroid #Depression On Zoloft Notes For Next Care Provider Medication Changes From Visit None Admission HPI Per Admitting Provider 83-year-old female with past medical history significant for prediabetes, bronchiectasis, dyspnea on exertion, restrictive lung disease, hiatal hernia, hyperlipidemia, postoperative hypothyroidism, primary hyperparathyroidism, chronic atrial fibrillation, status post AV brayan ablation, status post pacemaker, severe tricuspid 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, chronic diastolic CHF, hypertension, history of compression fracture of spine, senile osteoporosis, low back pain, depression, presents with diarrhea and not feeling well. Patient was recently started on Augmentin for sinusitis. She was having nasal drainage and after starting antibiotics nasal drainage stopped. She was started on Augmentin on 09/21/2024 per epic. Last few days patient was having diarrhea, several episodes. Denies any blood in the stools. Was feeling dehydrated and weak. And today blood pressure was running high in 170s. She was also having palpitations. Which prompted her to come to the ER. She has also had some soreness in the left rib cage. Denies any fevers. No headache. Vision is okay. She has history of bronchiectasis and has some cough. Denies any shortness of breath. No fevers. No abdominal pain. Micturating okay. Hemodynamics are okay. In the ER she was given Zosyn for possible pneumonia on chest x-ray. After having a dose of Zosyn patient developed hives and Benadryl and steroid was given. Patient says history of rash for penicillin long-time back but she was tolerating Augmentin okay for last several days. Past medical history. As mentioned above. Past surgical history. Sphincterectomy after gallbladder surgery. Left total knee arthroplasty. Benign breast lump removed. Colonoscopy. Cystoscopy. EGD. EGD with endoscopic ultrasound. Parathyroidectomy. Creation of pericardial window. Left knee arthroscopy. Ligation of oviducts. Pacemaker insertion. Partial removal of thyroid lobe. Appendectomy. Tonsillectomy. Right cataracts. Cholecystectomy. Sinus surgery. Left total hip replacement. Social history. No smoking. No alcohol use. No drug use. Family history. Father had arthritis. Lung cancer. CAD. Ruptured aortic artery. Hypertension. Lung disorder. Depression. Stroke. Mother had arthritis. Dementia. Cataracts. Heart failure. Admission Exam Per Admitting Provider General- Not in distress Head- atraumatic Eyes- PERRL. ENT- oropharynx clear Neck- supple, no JVD. Lungs- clear to auscultation no wheezing or crackles Heart- regular rhythm; no murmur, no gallop. Abdomen- normal bowel sounds, soft, nontender, no distension Extremities- no pretibial edema, no erythema seen Neuro- alert, oriented PERRL, no facial palsy; no dysarthria; moves extremities Discharge Exam Constitutional WD/WN, vitals as above Respiratory normal respiratory effort, lungs clear to auscultation Cardiovascular RRR, no murmur, no edema Gastrointestinal (Abdomen) normal bowel sounds, soft, nontender, no hepatosplenomegaly Updated Medication List Medication Instructions Recorded Confirmed Type acetaminophen 325 mg tablet 325 mg PO Q6H PRN Pain 08/28/18 09/27/24 History (Tylenol) apixaban 5 mg tablet (Eliquis) 5 mg PO BID 08/28/18 09/27/24 History levothyroxine 100 mcg tablet 100 mcg PO QAM 08/28/18 09/27/24 History metoprolol tartrate 50 mg tablet See Rx Instructions .Route .COMPLEX 08/28/18 09/27/24 History sertraline 25 mg tablet 25 mg PO QAM 08/28/18 09/27/24 History rosuvastatin 5 mg tablet 5 mg PO MOWEFR@0900 09/30/18 09/27/24 History famotidine 20 mg tablet 20 mg PO BID 08/03/20 09/27/24 History cholecalciferol (vitamin D3) 25 2,000 unit PO QAM 09/14/20 09/27/24 History mcg (1,000 unit) capsule (Vitamin D3) cyclosporine 0.05 % eye drops 1 drp ophthalmic (eye) Q12H 12/14/20 09/27/24 History (Restasis MultiDose) Flutter Valve #1 ea 08/09/21 09/27/24 Rx losartan 25 mg tablet 25 mg PO HS 08/09/21 09/27/24 History Wheeled Walker #1 ea 12/19/21 09/27/24 Rx wsitsnek-fawm-czqo 8 mg-folic 400 1 tab PO QAM 02/14/22 09/27/24 History mcg-K 50 mcg-lutein 300 mcg tablet (Centrum Silver Women) Incentive Spirometer #1 ea 02/21/22 09/27/24 Rx torsemide 5 mg tablet 5 mg PO Q OTHER DAY Edema 08/08/22 09/27/24 History docusate sodium 100 mg tablet 200 mg PO DAILY PRN Constipation 09/18/22 09/27/24 History food supplemt, lactose-reduced 1 ea PO DAILY 09/18/22 09/27/24 History (Ensure oral liquid) peg 400-propylene glycol (PF) 0.4 1 drp ophthalmic (eye) QID PRN Dry 09/18/22 09/27/24 History %-0.3 % eye drops in a dropperette Eyes (Systane (PF)) nebulizer accessories #1 ea 11/18/22 09/27/24 Rx amoxicillin 500 mg tablet 2,000 mg PO DIRECTED PRN 07/22/23 09/27/24 History prophylaxis dextromethorphan-guaifenesin 10 1 ml PO DAILY PRN Cough 07/22/23 09/27/24 History mg-100 mg/5 mL oral liquid (Tussin DM) Miscellaneous Pulmonary Supply #1 ea 11/17/23 09/27/24 Rx hydrocortisone 2.5 % topical cream 1 applic topical TID PRN Other 01/17/24 09/27/24 History nystatin 100,000 unit/gram topical 1 applic topical BID PRN Other 01/17/24 09/27/24 History cream umeclidinium 62.5 mcg-vilanterol 1 inh inhalation DAILY #3 Inhalers 03/02/24 09/27/24 Rx 25 mcg/actuation powdr for inhalation (Anoro Ellipta) Ventolin HFA 90 mcg/actuation 2 puff inhalation Q4H PRN 08/25/24 09/27/24 Rx aerosol inhaler (albuterol sulfate) shortness of breath or wheezing #3 Inhalers denosumab 60 mg/mL subcutaneous mg subcut 09/09/24 09/09/24 History syringe (Prolia) sodium chloride 7 % for 4 ml inhalation BID PRN SOB 09/27/24 09/27/24 History nebulization Hospital Stay Data Consultations 09/27/24 03:45 ED Decision to Admit Stat Diagnostic Imagining Performed 09/27/24 02:25 CT abd pelvis wo con Stat 09/27/24 05:07 CT chest diagnostic wo con Urgent Pending Results Patient Have Any Pending Studies at Discharge: No Discharge Instructions Given to Patient (Per Discharging Provider) You were admitted for concerns of dehydration after multiple days of diarrhea. You received some IV fluids and noted to have symptom resolution. Total Time Total Time Spent Total Time Spent (In Minutes): 45
--- NOTE | 2024-09-27 12:54 | Communication Note ---
Date of Service: September 27, 2024 By CMS guidelines, a determination that the admission or continued stay is not medically necessary has been made by a member of the UR committee and a phy sician for this hospital stay, therefore a Code 44 will be completed and the Inpatient admission will be changed to outpatient.
[2024-09-27 12:58] VITALS: PULSE 81
[2024-09-27] MEDS: ACETAMINOPHEN 325 MG TAB PO PRN (13:47)
--- NOTE | 2024-09-27 14:39 | Electrocardiogram Report ---
Test Reason : Blood Pressure : */* mmHG Vent. Rate : 91 BPM Atrial Rate : 101 BPM P-R Int : * ms QRS Dur : 166 ms QT Int : 418 ms P-R-T Axes : * -59 114 degrees QTcB Int : 514 ms Ventricular-paced rhythm Abnormal ECG When compared with ECG of 17-Jan-2024 11:05, Sinus rhythm is no longer with complete heart block Vent. rate has decreased by 4 bpm Confirmed by Ángel Rhodes ([id number] on 09/27/2024 2:39:43 PM Referred By: REFERRED SELF Confirmed By: Ángel Rhodes
[2024-09-27] MEDS ORDERED: METOPROLOL TARTRATE 25 MG TAB PO SCH (21:00)
[2024-09-27] MEDS ORDERED: LOSARTAN POTASSIUM 25 MG TAB PO SCH (21:00)
--- OUTSIDE RECORDS SUMMARY | 2024-10-08 22:27 | External Medical Summary | Summary of Care ---
Author Name Unknown Organization [facility] Address [address] [address] Phone [phone] Care Team Providers Care Coiled Tubing Operator Name Role Phone Nahid Rodgers MD Primary Care Provider + Reason for Visit * Reason Comments Follow Up Encounter Details Date Type Department Care Team (Latest Contact Info) Description 10/01/2024 10:30 AM EDT Office Visit Cardiology, [facility] [address] [facility] [address] Donte Chau, [address] [place] [address] Permanent atrial fibrillation (HCC)*; S/P AV brayan ablation; Cardiac pacemaker in situ [Z95.0]; Chronic diastolic congestive heart failure (HCC); Severe tricuspid 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 Allergies Active Allergy Reactions Criticality Noted Date Comments Acetylcysteine High 02/14/2022 Other reaction(s): caused chest tightness, PVB and AFib Alendronate Sodium 12/13/2008 Other reaction(s): GI Upset Moxifloxacin Hcl In Nacl 04/01/2016 Hallucinations Black Sylvester Pollen Allergy Skin Test Rash High 10/16/2018 Burning sensation in mouth and throat Capsaicin Hives,Rash 01/08/2011 Cayenne Hives High 02/16/2008 Celecoxib Rash 03/27/2017 Erythromycin Rash 01/22/2015 Food (See Comments) Rash Low 05/20/2016 Walnuts Iodinated Contrast Media Anaphylaxis High 01/22/2015 Anaphylaxis 1988 with cardiac cath [facility], was recently confirmed December 2016 in Allergy Department Augustoisingfiona Lumiracoxib Diarrhea 01/09/2007 Omeprazole 08/02/2015 Diarrhea, hair loss, abdominal bloating Rivaroxaban High 02/14/2022 Other reaction(s): PERICARDIAL EFFUSION Simvastatin Rash 02/15/2015 Can tolerate Crestor Sulfa Antibiotics Nausea/vomiting 01/22/2015 Sylvester High 06/22/2024 Other Reaction(s): Rash WITH black walnut Warfarin 02/14/2022 Other reaction(s): "NUMBERS WENT TO HIGH" documented as of this encounter (statuses as of 10/01/2024) Medications Ventolin HFA 108 (90 Base) MCG/ACT [...] differently: 5 mgOralEVERY OTHER DAY, Reported on 10/01/2024 Rosuvastatin Calcium 5 MG Oral Tablet (Crestor)Indications:Pu re hypercholesterolemia TAKE 1 TABLET BY MOUTH EVERY FRIDAY, FRIDAY, AND FRIDAY 40 Tablet 3 Active Metoprolol Tartrate 50 MG Oral [...] morning and 1 Tablet before bedtime. Active Levalbuterol HCl 1.25 MG/3ML Inhalation Nebulization SolutionIndications:Bro nchiectasis without complication (HCC) Inhale 3 mL via nebulizer every 8 hours as needed for Wheezing. 120 mL 1 025 Active predniSONE 10 MG Oral Tablet (Deltasone)Indications: Bronchiectasis without complication (HCC) Take 4 tabs for 2 days, 3 tabs for 2 days, 2 tabs for 2 days 1 tab for 2 days 20 Tablet Active documented as of this encounter (statuses as of 10/01/2024) Active Problems Problem Noted Date Diagnosed Date Prediabetes 03/26/2024 Hiatal hernia 10/10/2022 Renal calculus, left 10/10/2022 Restrictive lung disease 07/18/2022 Status post left knee replacement 10/24/2021 Pancreas cyst 09/05/2021 HTN, goal below 140/90 08/03/2021 Chronic diastolic congestive heart failure 10/20 Senile osteoporosis 07/28/2019 SWAIN (dyspnea on exertion) 07/28/2019 Hyperparathyroidism, primary 11/23/2018 Low back pain without sciatica 11/23/2018 Severe tricuspid 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 09/24/2018 assisted current use of anticoagulant therapy 0 09/24/2018 History of compression fracture of spine 018 Major depressive disorder wi th single episode, in full remission 04/06/2018 Chronic atrial fibrillation 01/12/2018 S/P AV brayan ablation 12/13/2016 Cardiac pacemaker in situ 12/13/2016 Postoperative hypothyroidism 03/04/2016 Mixed hyperlipidemia Bronchiectasis documented as of this encounter (statuses as of 10/01/2024) Resolved Problems Problem Noted Date Diagnosed Date [...] as of this encounter (statuses as of 10/01/2024) Immunizations Name Administration Dates Next Due COVID-19 [...] Sign Reading Time Taken Comments Blood Pressure 132/82 10/01/2024 10:20 AM EDT Pulse 76 10/01/2024 10:20 AM EDT Temperature - - Respiratory Rate 16 10/01/2024 10:2 0 AM EDT Oxygen Saturation - - Inhaled Oxygen Concentration - - Weight 90.2 kg (198 lb 14.4 oz) 025 10:20 AM EDT Height - - Body Mass Index 31.14 09/30/2024 9:06 AM EDT documented in this encounter Functional [...] documented in this encounter Progress Notes * Donte Chau, DO - 10/01/2024 10:59 AM EDT 10/01/2024 Cardiology Follow Up SUBJECTIVE: History of Present Illness Catracho Penn is an 83 year old female with atrial fibrillation and AV node ablation who presents for cardiology follow-up. She is accompanied by her daughter, Sandra, as per her usual routine. She recently visited the emergency room on September 26, 2024, due to severe diarrhea and dehydration following a reaction to Augmentin. This episode led to weakness and a sensation of her heart poundingin her back, with a recorded blood pressure of 195/125 mmHg. She was treated for dehydration in theER. During the visit, she was initially suspected to have pneumonia based on a chest X-ray and was administered Zosyn, to which she developed hives and was treated with Benadryl. A subsequent chest CT ruled out pneumonia, but she was diagnosed with a respiratory infection. She was prescribed a prednisone taper and a Xopenex nebulizer, which is pending fill. She has a history of atrial fibrillation and underwent AV node ablation. She is on Eliquis 5 mg twice daily for stroke prevention. Her pacemaker, implanted due to her cardiac history, was last interrogated in July 2024, showing stable function with 100% right ventricular pacing and six years of battery life remaining. She recalls a previous visit in January 2024 for a 'twinging feeling' near the pacemaker site, which was evaluated and found to be functioning well. She also has chronic diastolic heart failure and manages fluid retention with torsemide, taken as needed based on symptoms of swelling or weight gain. Prior to the recent diarrhea episode, she was taking torsemide every other day. Her last echocardiogram in 2023 indicated mild tricuspid 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, though she suspects it may be more severe. She notes fluid tends to accumulate in her abdomen. Her recent blood work at the hospital was normal, and she is not due for further tests until March 2025, except for a cholesterol test done on September 16, 2024, which was normal. Cardiac / Interventional History: 1. Cardiac catheterization (1984 or 1988, conflicting references, no report available) [facility], with what the patient describes as an anaphylactoid reaction to contrast media with hives and development of shock 2. [id number] followed by cardiology at [facility] 3. 03/2015 , established with [facility], visit with Dr Gonzalez, to establish care, with history of paroxysmal atrial fibrillation, medications at the time of that visit including and verapamil, atenolol, and Xarelto 4. 2014 - 2016 multiple hospitalizations for extremely symptomatic paroxysmal atrial fibrillation, episodes often times associated with exacerbations of lung disease, with Pulmonary Medicine having followed her for the diagnosis of recurrent bronchitis with underlying bronchiectasis. -Multiple direct current cardioversions performed. -Patient ultimately treated with sotalol for rhythm control strategy 5. October,, electrophysiology consultation, with Dr Samayoa. Patient had had multiple recurrent episodes of atrial fibrillation on sotalol 80 milligrams twice daily. Sotalol dose was limited due tobaseline bradycardia. Treatment options discussed including pulmonary vein isolation ablation, verses AV junction ablation and permanent Medtronic pacemaker implantation. -patient ultimately underwent implantation of dual-chamber Medtronic permanent pacemaker 12/02/2018at [facility] [address], with AV junction ablation. Discharged day after procedure , 12/03/18. -Admitted for observation at [facility], 12/03-12/04/18 for chest pain. Echo 12/04/18, no pericardial effusion 6. 02/21/17, admitted [facility], 1 cm circumferential pericardial effusion noted on CT scan without contrast performed for the evaluation of chest pain. No overt tamponade on on initial echocardiogram, but the patient did have transient hypotension. She was transferred to [facility]. Medication therapy for suspected possiblepostprocedure inflammatory pericarditis initiated with colchicine and high-dose aspirin. Anticoagulation with Xarelto placed on hold. -Coumadin re-initiated, but discontinued in March 2017 due to recurrent admission for chest pain, small pericardial effusion. 7. Chronic/recurrent pericarditis/pericardial effusion noted throughout late 2016. Ultimately patient was hospitalized again in August 2017 and was referred for surgical pericardial window with subsequent resolution of pericardial effusion on echocardiography and improvement in patient's exercise tolerance with improvement of chest pain, shortness of breath symptoms. 2018, anticoagulation with Eliquis subsequently re-initiated the rather than previous Xarelto or Coumadin. -other cardiac issues, chronic diastolic heart failure. 10/2018: TWIN, moderate to severe TR, mild mild coaptation of the tricuspid valve apparatus noted where the right ventricular pacemaker lead traverses the valve, the tricuspid valve annulus was dilated, 4.1 centimeters 03/28/22: TTecho , Normal LV chamber size with mild concentric LVH. Normal LV systolic function without regional wall motion abnormalities, EF 55-60%. Mild mitral 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. Severe tricuspid 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. Severe biatrial enlargement. 10/08/2022: Pharmacologic nuclear stress test, no ischemia Extensive ROS: All systems reviewed & are unremarkable except as noted in HPI & below Cardiovascular (chest pain/palpitations/fluttering/diaphoresis/dyspnea on exertion/paroxysmally nocturnal dyspnea):Negative Review of patient's allergies indicates: Allergen Reactions Acetylcysteine Other reaction(s): caused chest tightness, PVB and AFib Black Sylvester Pollen Allergy Skin Test Rash Burning sensation in mouth and throat Cayenne Hives Iodinated Contrast Media Anaphylaxis Anaphylaxis 1987 with cardiac cath [facility], was recently confirmed December 2016 in Allergy Department [facility] Rivaroxaban Other reaction(s): PERICARDIAL EFFUSION Sylvester Other Reaction(s): Rash WITH black walnut Alendronate Sodium Other reaction(s): GI Upset Avelox [Moxifloxacin Hcl In Nacl] Hallucinations Capsaicin Hives and Rash Celebrex [Celecoxib] Rash Erythromycin Rash Lumiracoxib Diarrhea Omeprazole Diarrhea, hair loss, abdominal bloating Simvastatin Rash Can tolerate Crestor Sulfa Antibiotics Nausea/vomiting Warfarin Other reaction(s): "NUMBERS WENT TO HIGH" Food (See Comments) Rash Walnuts Current Outpatient Medications Medication Sig Dispense Refill [...] 1 Tablet by mouth every other day. Amoxicillin 500 MG Oral Tablet Before dental appointments Levothyroxine Sodium 100 MCG Oral Tablet (Levoxyl) TAKE 1 TABLET BY MOUTH EVERY MORNING AT LEAST 30MINUTES PRIOR TO BREAKFAST OR OTHER MEDICATIONS. 90 Tablet 3 Losartan Potassium 25 MG Oral Tablet (Cozaar) [...] the morning and 1 Tablet before bedtime. Levalbuterol HCl 1.25 MG/3ML Inhalation Nebulization Solution Inhale 3 mL via nebulizer every 8 hours as needed for Wheezing. 120 mL 1 predniSONE 10 MG Oral Tablet (Deltasone) Take 4 tabs for 2 days, 3 tabs for 2 days, 2 tabs for 2 days 1 tab for 2 days 20 Tablet 0 Denosumab 60 MG/ML Subcutaneous Solution Prefilled Syringe (Prolia) Inject 60 mg under the skin every 6 months. No current facility-administered medications for this visit. OBJECTIVE/PHYSICAL EXAMINATION: BP 132/82 | Pulse 76 | Resp 16 | Wt 90.2 kg (198 lb 14.4 oz) | BMI 31.14 kg/m | BSA 2.07 m General: no acute distress and stated age Eyes: conjunctiva are pink and non-injected, sclera clear Neck: normal jugular venous pulse, no hepatojugular reflux Chest: normal shape and normal respiratory effort Left infraclavicular pacer pocket is clean , dry and intact Lungs: clear to auscultation , no rales rhonchi or wheezing Cardiac Exam: - regular heart sounds, 1/6 SM Abdomen: abdomen soft, non-tender, no abnormal masses and no hepatosplenomegaly Musculoskeletal: no gait disturbance, no weakness Extremities: no edema and no cyanosis Neuro: grossly normal exam Psych: appropriate affect and insight. Data: Results LABS Cholesterol: Normal (09/16/2024) RADIOLOGY Chest X-ray: No pneumonia (09/26/2024) DIAGNOSTIC Pacemaker interrogation: Pacing from right ventricle 100%, 6 years battery life remaining (07/16/2024) Echocardiogram: Mild tricuspid 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 (2023) Latest Reference Range & Units 09/16/24 07:36 Triglycerides <=174 mg/dL 93 Cholesterol <200 mg/dL 141 Non-HDL Cholesterol <=159 mg/dL 84 HDL Cholesterol >49 mg/dL 57 LDL Cholesterol <=129 mg/dL 65 Summary of ttecho performed 10/09/23: The LV wall thickness is mildly increased (concentric). The septal motion is abnormal consistent with right ventricular pacemaker. The regional left ventricular wall motion is otherwise normal. The qualitative LV ejection fraction is 55-59% (normal). Severe biatrial enlargement is present. The right ventricular systolic function is reduced as assessed with TAPSE. Mild mitral 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 is present. Mild tricuspid 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 is present. The estimated pulmonary artery systolic pressure is 37 mm Hg (upper limit of normal). Compared to the previous dated 03/28/2022, there is no significant interval change. -the degree of TR was likely underestimated by this study EKG performed today, 10/01/24 and interpreted independently by the undersigned; Underlying AF, V pacing 91 bpm. Assessment & Plan Chronic diastolic heart failure with severe tricuspid 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 Chronic diastolic heart failure with abdominal fluid retention. Severe tricuspid 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 suspected despite mild findings on 2023 echocardiogram. Fluid management with torsemide has effectively prevented hospitalizations. Preference for less invasive tricuspid valve interventions. - Continue torsemide as needed based on fluid status and weight gain. Permanent atrial fibrillation with AV node ablation Permanent atrial fibrillation managed with AV node ablation. Anticoagulation with Eliquis to prevent stroke, dosing based on age, weight, and kidney function. No recent heart rate control issues due to ablation. - Continue Eliquis 5 mg twice daily. Pacemaker management Pacemaker functioning well with 100% right ventricular pacing. July 2024 remote interrogation showed stable parameters with 6 years of battery life remaining. Next interrogation due in October 2024. - Schedule remote pacemaker interrogation in October 2024. Hypertension Elevated blood pressure (195/125 mmHg) during recent ER visit which is improved. Advised to monitor blood pressure and seek emergency care if systolic BP is below 90 or above 180. - Monitor blood pressure regularly. - Seek emergency care if systolic BP is below 90 or above 180. Antibiotic-induced diarrhea Severe diarrhea following Augmentin use, likely due to amoxicillin component, resulting in dehydration and elevated blood pressure. Diarrhea is a known side effect of amoxicillin-type antibiotics. - Discontinue Augmentin. - Monitor hydration status. Allergic reaction to Zosyn Immediate allergic reaction to Zosyn characterized by hives, managed with Benadryl. Zosyn was administered due to suspected pneumonia, later ruled out by chest CT. - Avoid Zosyn and other penicillin derivatives. - Monitor for any further allergic reactions. Respiratory infection Recent respiratory infection treated with prednisone taper and Xopenex nebulizer. Xopenex preferreddue to minimal impact on heart rate, especially post-AV node ablation. - Continue prednisone taper. - Use Xopenex nebulizer as prescribed. Follow up : Follow Up: Return in about 6 months (around 04/03/2025) for Clinic Visit. | For: Clinic Visit Patient seen in longitudinal follow up of the above issues with assessment and plan as documented. Donte Chau DO Cardiology, [address] [address] Text in this note was generated using an ambient documentation service. I discussed the use of a device to record and summarize our discussion today. All persons present during the encounter consented to its use. documented in this encounter Procedure Notes * Donte Chau DO - 10/01/2024 10:29 AM EDTAssociated Order(s): EKG REASON FOR STUDY: Annual;Annual CONCLUSIONS: Atrial-sensed ventricular-paced rhythm Abnormal ECG When compared with ECG of 27-Jan-2023 13:09, Vent. rate has decreased by 7 bpm Ventricular Rate: 91 Atrial Rate: 91 NC Interval: 152 QRS Duration: 170 QT/QTc: 422/519 ms P-R-T [place]: 101 : -70 : 108 degrees documented in this encounter Nursing Notes * Amanda Chambers LPN - 10/01/2024 10:16 AM EDT Examination Room: 11 Name: Catracho Penn Date of : 1940 Reason for Visit: Follow up Problems/Concerns: Wants to know status of heart, levalbuterol nebulizer, bp issues Interim Hosp(s): [facility] 09/26/2024 dehydration Chest Pain/SOB: Denies chest pain, increased sob MyChart Discussed: YES Patient was instructed to not get up on the exam table until directed and assisted by their provider; patient is to remain seated in the chair/ wheelchair/ exam table for fall prevention and safety reasons. Patient is aware staff will assist stepping down off exam table with personnel. documented in this encounter Plan of Treatment Upcoming Encounters Date Type Department Care Team (Late st Contact Info) Description 10/04/2024 11:00 AM EDT Office Visit General Internal Medicine [facility] [address] [place] [address] [address] Nahid Rodgers MD [address] [address] 12/08/2024 10:15 AM EDT Office Visit Orthopaedics Paulina Cazares [address] [place] [address] Marcus Collins MD [address] [place] [address] 01/28/2025 9:30 AM EDT Office Visit Cardiology, [facility] [address] [facility] [address] Stacey Talbot CRNP [address] [place] [address] 02/14/2025 12:40 PM EDT Telemedicine Endocrinology [address] [place] [address] Henna Malhotra MD [address] [place] [address] 02/28/2025 2:30 PM EDT Nurse Only Ancillary [facility] [address] [place] [address] Park, Nurse Annual Wellness [facility] [address] [place] [address] 03/09/2025 3:00 PM EDT Office Visit Rheumatology [facility] [address] [place] [id number] Julia Conway CRNP [address] [facility] [place] [address] 04/21/2025 12:20 PM EDT Office Visit Dermatology [facility] [address] [place] [address] Neyda Mccann PA-C [address] [place] [address] 05/11/2025 11:00 AM EDT Office Visit Urology, [facility] [address] [place] [address] Buddy Okeefe MD [address] [place] [address] 06/14/2025 2:40 PM EST Office Visit General Internal Medicine [facility] [place] [address] [facility] [place] [address] Nahid Rodgers MD [address] [facility] [place] [address] Scheduled Procedures Name Priority Associated Diagnoses Date/Ti me ESOPHAGOGASTRODUODENOSCOPY ( EGD), FLEXIBLE, TRANSORAL, ENDOSCOPIC ULTRASOUND Recall Pancreatic cyst Health Maintenance Due Date Last Done Comments COVID-19 Vaccine ( season) 2024 03/12/2024, 05/22/2023, 04/10/2022, Additional history exists Adult Wellness Visit 02/23/2025 02/24/2024, 01/22/2023, 01/21/2022, Additional history exists Depression Monitoring 02/23/2025 02/24/2024 HbA1c 03/25/2025 03/25/2024, 0801/2023, 07/22/2022, Additional history exists GFR 09/16/2025 09/16/2024, [...] D LEVEL ONCE IN A LIFETIME-USE SMARTSET# [id number] Completed 09/16/2024, 02/18/2024, 09/18/2023, Additional history exists [...] this encounter Medical Devices Implanted Type Area Forensic Engineer Device Identifier Shelf Expiration Date Model / Serial / Lot [place] Mini Quick 2/0 [id number] - [id number] Implanted:Qty: 2 on 12/21/2018 by Marcus Collins MD at [place] [facility] Left: Hand JNJ : DEPUY MITEK SURG PROD 08/13/2021 [id number] / / [id number] documented as of this encounter Procedures Procedure Name Priority Date/Time Associated Diagnosis Comments NC ECG ROUTINE ECG W/LEAST 12 LDS W/I&R Routine 10/01/2024 10:29 AM EDT documented in this encounter Results * EKG (10/01/2024 10:29 AM EDT) 10/01/2024 10:2 9 AM EDT Narrative Procedure Note Donte Chau, - 10/01/2024 10:29 AM EDT REASON FOR STUDY: Annual;Annual CONCLUSIONS: Atrial-sensed ventricular-paced rhythm Abnormal ECG When compared with ECG of 27-Jan-2023 13:09, Vent. rate has decreased by 7 bpm Ventricular Rate: 91 Atrial Rate: 91 NC Interval: 152 QRS Duration: 170 QT/QTc: 422/519 ms P-R-T [place]: 101 : -70 : 108 degrees us Donte J Kandi DO EKG Final Result [facility] documented in this encounter Visit Diagnoses Diagnosis Permanent atrial fibrillation (HCC)- Primary Atrial fibrillation S/P AV brayan ablation Other postprocedural status Cardiac pacemaker in situ [Z95.0] Cardiac pacemaker in situ Chronic diastolic congestive heart failure (HCC) Chronic diastolic heart failure Severe tricuspid 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 Diseases of tricuspid valve documented in this encounter Advance Directives Documents on File Type Date Recorded Patient Care Trainer Expl anation Power of Paper Cone Grader 02/20/2021 POWER OF A TTORNEY * Full [...] the patient have Health Care Power of Paper Cone Grader? Yes, not currently available Care Teams Coiled Tubing Operator Relationship Specialty Start Date End Date Nahid Rodgers MD [address] [place] [address] PCP - General Internal Medicine 01/27/24 documented as of this encounter
--- OUTSIDE RECORDS SUMMARY | 2024-10-08 22:27 | External Medical Summary | Summary of Care ---
Author Name Unknown Organization [facility] Address [address] [facility] [place] [address] Phone [phone] Care Team Providers Care Supervisor Insecticide Name Role Phone Nahid Rodgers MD Primary Care Provider + Reason for Visit * Reason Onset Date Comments Follow Up Bronchiectasis; patient states prednisone has helped; states voice is hoarse due to congestion Pain Above right groi n intermittent for several months - states it is not terrible, but it is legitimate pain Hospital Follow-Up 10/04/2024 Encounter Details Date Type Department Care Team (Latest Contact Info) Description 10/04/2024 11:00 AM EDT Office Visit General Internal Medicine [facility] [place] [address] [place] [address] Nahid Rodgers MD [address] [place] [address] Acute exacerbation of bronchiectasis (HCC)*; HTN, goal below 140/90; Right lower quadrant abdominal pain; Kidney cysts Allergies Active Allergy Reactions Criticality Noted Date Comments Acetylcysteine High 02/14/2022 Other reaction(s): caused chest tightness, PVB and AFib Alendronate Sodium 12/13/2008 Other reaction(s): GI Upset Moxifloxacin Hcl In Nacl 04/01/2016 Hallucinations Black [place] Pollen Allergy Skin Test Rash High 10/16/2018 [...] Can tolerate Crestor Sulfa Antibiotics Nausea/vomiting 01/22/2015 [place] High 06/22/2024 Other Reaction(s): Rash WITH black walnut Warfarin 02/14/2022 Other reaction(s): "NUMBERS WENT TO HIGH" Piperacillin-Tazobactam In Dex Hives,Itching 10/04/2024 documented as of this encounter (statuses as of 10/04/2024) Medications Ventolin HFA 108 (90 Base) MCG/ACT [...] differently: 5 mgOralEVERY OTHER DAY, Reported on 10/04/2024 Rosuvastatin Calcium 5 MG Oral Tablet (Crestor)Indications:Pu [...] Tablet (Tylenol) Take 1 Tablet by mouth daily as needed. Active Levalbuterol HCl 1.25 MG/3ML Inhalation Nebulization SolutionIndications:Bro nchiectasis without complication (HCC) Inhale 3 mL via nebulizer every 8 hours as needed for Wheezing. 120 mL 1 025 Active predniSONE 10 MG Oral Tablet (Deltasone)Indications: Bronchiectasis without complication (HCC) Take 4 tabs for 2 days, 3 tabs for 2 days, 2 tabs for 2 days 1 tab for 2 days 20 Tablet 025 Active documented as of this encounter (statuses as of 10/04/2024) Active Problems Problem Noted Date Diagnosed Date Prediabetes 03/26/2024 Hiatal hernia 10/10/2022 Renal calculus, left 10/10/2022 Restrictive lung disease 07/18/2022 Status post left knee replacement 10/24/2021 Pancreas cyst 09/05/2021 HTN, goal below 140/90 08/03/2021 Chronic diastolic congestive heart failure 10/20 Senile osteoporosis 07/28/2019 JACKSON (dyspnea on exertion) 07/28/2019 Hyperparathyroidism, primary 11/23/2018 Low back pain without sciatica 11/23/2018 Severe tricuspid 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 09/24/2018 nursing home current use of anticoagulant therapy 0 09/24/2018 History of compression fracture of spine 018 Major depressive disorder wi th single episode, in full remission 04/06/2018 Chronic atrial fibrillation 01/12/2018 S/P AV brayan ablation 12/13/2016 Cardiac pacemaker in situ 12/13/2016 Postoperative hypothyroidism 03/04/2016 Mixed hyperlipidemia Bronchiectasis documented as of this encounter (statuses as of 10/04/2024) Resolved Problems Problem Noted Date Diagnosed Date [...] as of this encounter (statuses as of 10/04/2024) Immunizations Name Administration Dates Next Due COVID-19 [...] Packs/Day Years Used Date Smoking Tobacco: Never Passive Smoke Exposure: Past Smokeless Tobacco: Never Comments:Father & sm oked [...] Sign Reading Time Taken Comments Blood Pressure 144/78 10/04/2024 10:59 AM EDT Pulse 74 10/04/2024 10:59 AM EDT Temperature 36.8 C (98.3 F) 10/04/2024 10:59 AM E DT Respiratory Rate 16 10/04/2024 10:59 AM EDT Oxygen Saturation 96% 10/04/2024 10:59 AM EDT room air Inhaled Oxygen Concentration - - Weight 90.5 kg (199 lb 8 oz) 10/04/2024 10:59 AM EDT Height - - Body Mass Index 31.24 09/30/2024 9:06 AM EDT documented in this [...] Progress Notes * Nahid Rodgers MD - 10/04/2024 11:12 AM EDT Chief Complaint Patient presents with Follow Up Bronchiectasis; patient states prednisone has helped; states voice is hoarse due to congestion Pain Above right groin intermittent for several months - states it is not terrible, but it is legitimatepain Hospital Follow-Up SUBJECTIVE: Catracho Penn is a 83 year old female with PMH as below who presents for f/u bronchiectasis exacerbation from last week, was on prednisone has helped a lot. Less sob ,jackson. Some hoarseness today, but notsevere, no fevers, chills or sinus. Has had intermittent spot rlq pain for many months, comes and goes. No mass or lump, can hurt when sits, no other trigger known. No n/v/d. Patient Active Problem List Diagnosis Mixed hyperlipidemia Bronchiectasis (HCC) Postoperative hypothyroidism S/P AV brayan ablation Cardiac pacemaker in situ Chronic atrial fibrillation (HCC) History of compression fracture of spine Major depressive disorder with single episode, in full remission (HCC) Severe tricuspid 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 nursing home current use of anticoagulant therapy Hyperparathyroidism, primary (HCC) Low back pain without sciatica Senile osteoporosis JACKSON (dyspnea on exertion) Chronic diastolic congestive heart [...] Denosumab 60 MG/ML Subcutaneous Solution Prefilled Syringe ([employer]) Inject 60 mg under the skin every [...] Tablet (Tylenol) Take 1 Tablet by mouth daily as needed. Levalbuterol HCl 1.25 MG/3ML Inhalation Nebulization Solution Inhale 3 mL via nebulizer every 8 hours as needed for Wheezing. 120 mL 1 predniSONE 10 MG Oral Tablet (Deltasone) Take 4 tabs for 2 days, 3 tabs for 2 days, 2 tabs for 2 days 1 tab for 2 days 20 Tablet 0 No current facility-administered medications for this visit. Review of patient's allergies indicates: Allergen Reactions Acetylcysteine Other reaction(s): caused chest tightness, PVB and AFib Black [place] Pollen Allergy Skin Test Rash Burning sensation in mouth and throat Cayenne Hives Iodinated Contrast Media Anaphylaxis Anaphylaxis 1987 with cardiac cath [facility], was recently confirmed December 2016 in Allergy Department [facility] Rivaroxaban Other reaction(s): PERICARDIAL EFFUSION [place] Other Reaction(s): Rash WITH black walnut Alendronate Sodium Other reaction(s): GI Upset Avelox [Moxifloxacin Hcl In Nacl] Hallucinations Capsaicin Hives and Rash Celebrex [Celecoxib] Rash Erythromycin Rash Lumiracoxib Diarrhea Omeprazole Diarrhea, hair loss, abdominal bloating Simvastatin Rash Can tolerate Crestor Sulfa Antibiotics Nausea/vomiting Warfarin Other reaction(s): "NUMBERS WENT TO HIGH" Zosyn [Piperacillin-Tazobactam In Dex] Hives and Itching Food (See Comments) Rash Walnuts Health Maintenance Due Topic Date Due COVID-19 Vaccine ( season) 2024 ROS: CONSTITUTIONAL: No fevers, sweats, or chills PULMONARY: No rales CARDIOVASCULAR: No chest pain and No shortness of breath ALL OTHER SYSTEMS NEGATIVE I reviewed social, PMH, PSH, and family history and updated where needed. 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 Daughter and Son are local. Social Needs [...] Stability Do you currently live in a jail or have no steady place to sleep [...] disease, chronic, stage III (GFR 30-59 ml/min) ([facility]) 01/24/2020 Per CKD protocol Microscopic hematuria Myalgia [...] COLONOSCOPY, DIAGNOSTIC (RECTUM) 01/22/2018 adenomatous polyps / [facility] CYSTOSCOPY 10/2014 x 3; for microscopic hematuria EGD, FLEXIBLE, DIAGNOSTIC 01/22/2018 normal bx, Schatzki ring, hiatal hernia / [facility] EGD, FLEXIBLE, DIAGNOSTIC 09/04/2021 Erosive gastropathy, hiatal hernia / ESOPHAGOGASTRODUODENOSCOPY (EGD), FLEXIBLE, TRANSORAL, DIAGNOSTIC performed by Kaylyn Phillips MD at ENDOSCOPY [facility] EGD, W/ENDOSCOPIC US 09/04/2021 pancreatic cysts (IPMN) / ESOPHAGOGASTRODUODENOSCOPY (EGD), FLEXIBLE, TRANSORAL, ENDOSCOPIC ULTRASOUND performed by Kaylyn Phillips MD at ENDOSCOPY [facility] EXPLORE PARATHYROID GLANDS N/A 02/24/2023 PARATHYROIDECTOMY performed by Nahid Guaman MD at OR [facility] INCISION OF HEART SAC FOR DRAINAGE N/A 09/08/2017 CREATION PERICARDIAL WINDOW performed by Marques Garcia MD at OR [facility] KNEE ARTHROSCOPY/SURGERY Left LIGATE/CUT OVIDUCT(S) 1983 NAIL BED, PERMANENT REMOVAL Bilateral 10/08/2018 EXCISION NAIL PARTIAL OR COMPLETE INGROWN performed by Jenna Guillermo DPM at OR [facility] PACEMAKER INSERTION, EXISTING MULTIPLE LEAD 11/2016 PARTIAL REMOVAL OF THYROID LOBE 1975 REMOVAL OF APPENDIX 1956 REMOVAL OF TONSILS, UNDER AGE 11 1944 REMOVE CATARACT, INSERT LENS PROSTH Right 09/30/2018 REMOVE GALLBLADDER REPAIR/REVISE WRIST JOINT(S) Left 12/21/2018 ARTHROPLASTY INTERPOSITION CARPAL JOINTS performed by Marcus Collins MD at OR [facility] SINUS SURGERY PROCEDURE NEC 2010 TOTAL HIP [...] Chávez 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 Allergies Father Albino Chávez shellfish Heart attack Father Albino Yeungoff 50 Heart Disorder Father Albino Navarrokrzysztofoff 50 ruptured aottic artery Hypertension Father Albino Navarroenhoff Lung Disorder Father Albino Yeungoff smoker Arthritis Father Albino Yeungoff Osteo Mental Disorder Father Albino Yeungoff Depression Cancer Father Albino Yeungoff lung Stroke Father Albino Yeungoff Heart Disorder Sister Carri Chávez if a [...] attack Uncle (Unspecified) OBJECTIVE: PHYSICAL EXAM: BP 144/78 (BP Site: Left Arm, BP Position: Sitting, BP Cuff Size: Regular) | Pulse 74 | Temp 98.3 F (36.8 C) (Tympanic) | Resp 16 | Wt 199 lb 8 oz (90.5 kg) | SpO2 96% Comment: room air | BMI 31.24 kg/m | BSA 2.07 m General: alert, healthy, and no distress Nose: no mucosal erythema, no mucosal edema, no purulent discharge Oropharynx: no exudate, no erythema, lips, buccal mucosa, and tongue normal, and mucous membranes are moist Heart: regular rate & rhythm, no murmur, no gallops, PMI non-displaced, S-1 normal, and S-2 normal Lungs: normal respiratory rate and rhythm, lungs clear to auscultation Abdomen: abdomen soft, non-tender, obese, normal bowel sounds, no masses or organomegaly, and area of pain under scar, no masses felt Psych: normal affect, no flight of ideas or tangential thought, good eye contact, no pressured speech I reviewed last gfr, cbc, A1c ASSESSMENT: (J47.1) Acute exacerbation of bronchiectasis (HCC) (primary encounter diagnosis) (I10) HTN, goal below 140/90 (R10.31) Right lower quadrant abdominal pain (N28.1) Kidney cysts PLAN: Acute exacerbation of bronchiectasis (HCC) (Primary) Better Finish prednisone Has nebs HTN, goal below 140/90 Possible higher from prednisone Recheck 2 weeks Cont meds Right lower quadrant abdominal pain Exam ok Discussed u/s, declines for now, wants to monitor, will let me know Kidney cysts She will f/u urology Follow Up: Return if symptoms worsen or fail to improve, for BP Check in 2 Weeks. | For: BP Check in 2 Weeks Nahid Rodgers MD documented in this encounter Nursing Notes * Dwight Vargas, RN - 10/04/2024 11:01 AM EDT Chief Complaint Patient presents with Follow Up Bronchiectasis; patient states prednisone has helped; states voice is hoarse due to congestion Pain Above right groin intermittent for several months - states it is not terrible, but it is legitimatepain documented in this encounter Plan of Treatment Upcoming Encounters Date Type Department Care Team (Late st Contact Info) Description 10/18/2024 2:00 PM EDT Nurse Only Ancillary [facility] [address] [place] [address] Nurse, [facility] [address] [facility] [place] [address] 12/08/2024 10:15 AM EDT Office Visit Orthopaedics [place] [address] [place] [address] Marcus Collins MD [address] [facility] [place] [id number] 01/28/2025 9:30 AM EDT Office Visit Cardiology, [facility] [address] [place] [address] Stacey Talbot CRNP [address] [place] [address] 02/14/2025 12:40 PM EDT Telemedicine Endocrinology [address] [place] [place] [address] Henna Malhotra MD [address] [place] [address] 02/28/2025 2:30 PM EDT Nurse Only Ancillary [facility] [address] [facility] [place] [address] Davina Nurse Annual Wellness [facility] [address] [facility] [place] [address] 03/09/2025 3:00 PM EDT Office Visit Rheumatology [facility] [address] [place] [phone] Julia Conway CRNP [address] [facility] [place] [address] 04/21/2025 12:20 PM EDT Office Visit Dermatology [facility] [place] [address] [facility] [place] [address] Neyda Mccann PA-C [address] [facility] [place] [address] 05/11/2025 11:00 AM EDT Office Visit Urology, [facility] [address] [place] [phone] Buddy Okeefe MD [address] [place] [address] 06/14/2025 2:40 PM EST Office Visit General Internal Medicine [facility] [place] [address] [facility] [place] [address] Nahid Rodgers MD [address] [facility] [place] [address] Scheduled Procedures Name Priority Associated Diagnoses Date/Ti [...] D LEVEL ONCE IN A LIFETIME-USE SMARTSET# 75562 Completed 09/16/2024, 02/18/2024, 09/18/2023, Additional history exists [...] this encounter Medical Devices Implanted Type Area Photographic Plate Maker Device Identifier Shelf Expiration Date Model / Serial / Lot [place] Mini Quick 2/0 [id number] - [id number] Implanted:Qty: 2 on 12/21/2018 by Marcus Collins MD at OR [facility] Left: Hand JNJ : DAHIANA MITEK SURG PROD 08/13/2021 [id number] / / [id number] documented as of this encounter Visit Diagnoses Diagnosis Acute exacerbation of bronchiectasis (HCC)- Primary Bronchiectasis with acute exacerbation HTN, goal below 140/90 Unspecified essential hypertension Right lower quadrant abdominal pain Abdominal pain, right lower quadrant Kidney cysts Unspecified congenital cystic kidney disease documented in this encounter Advance Directives Documents on File Type Date Recorded Patient Cyber Threat Analyst Expl anation Power of Skimmer Scoop Operator 02/20/2021 POWER OF A TTORNEY * Full [...] the patient have Health Care Power of Skimmer Scoop Operator? Yes, not currently available Care Teams Supervisor Insecticide Relationship Specialty Start Date End Date Nahid Rodgers MD [address] [facility] [place] [address] PCP - General Internal Medicine 01/27/24 documented as of this encounter
--- OUTSIDE RECORDS SUMMARY | 2024-10-08 22:27 | External Medical Summary | Summary of Care ---
Author Name Unknown Organization [facility] Address [address] [address] Phone [phone] Care Team Providers Care Fur Comber Name Role Phone Nahid Rodgers MD Primary Care Provider + Reason for Visit * Reason Onset Date Comments Appointment 09/24/2024 Encounter Details Date Type Department Care Team (Late st Contact Info) Description 09/24/2024 Telephone Dermatology [facility] [address] [place] [address] Neyda Mccann PA-C [address] [place] [address] Appointment Allergies Active Allergy Reactions Criticality Noted Date Comments Acetylcysteine High 02/14/2022 Other reaction(s): caused chest tightness, PVB and AFib Alendronate Sodium 12/13/2008 Other reaction(s): GI Upset Moxifloxacin Hcl In Nacl 04/01/2016 Hallucinations Black [place] Pollen Allergy Skin Test Rash High 10/16/2018 [...] as of this encounter (statuses as of 09/28/2024) Medications Ventolin HFA 108 (90 Base) MCG/ACT [...] as of this encounter (statuses as of 09/28/2024) Active Problems Problem Noted Date Diagnosed Date Prediabetes 03/26/2024 Hiatal hernia 10/10/2022 Renal calculus, left 10/10/2022 Restrictive lung disease 07/18/2022 Status post left knee replacement 10/24/2021 Pancreas cyst 09/05/2021 HTN, goal below 140/90 08/03/2021 Chronic diastolic congestive heart failure 10/20 Senile osteoporosis 07/28/2019 SWAIN (dyspnea on exertion) 07/28/2019 Hyperparathyroidism, primary 11/23/2018 Low back pain without sciatica 11/23/2018 Severe tricuspid 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 09/24/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 0 09/24/2018 History of compression fracture of spine 018 Major depressive disorder wi th single episode, in full remission 04/06/2018 Chronic atrial fibrillation 01/12/2018 S/P AV brayan ablation 12/13/2016 Cardiac pacemaker in situ 12/13/2016 Postoperative hypothyroidism 03/04/2016 Mixed hyperlipidemia Bronchiectasis documented as of this encounter (statuses as of 09/28/2024) Resolved Problems Problem Noted Date Diagnosed Date [...] as of this encounter (statuses as of 09/28/2024) Immunizations Name Administration Dates Next Due COVID-19 [...] encounter Miscellaneous Notes * Telephone Encounter - Guerita Choi OSA - 09/27/2024 9:13 AM EDT Called patient, left message to return call to see if she can come on 09/30 at 10:20 am to see Neyda. I placed her on the schedule for now but appt needs l confirmed with patient. * Telephone Encounter - Guerita Choi OSA - 09/24/2024 10:17 AM EDT ----- Message from Neyda Mccann sent at 09/24/2024 7:55 AM EDT ----- Please schedule cryo with myself or Dr. Cao (can you let me know when you get her scheduled) A. Skin, L suprabrow, shave: Actinic keratosis comment inflamed documented in this encounter Plan of Treatment Upcoming Encounters Date Type Department Care Team (Late st Contact Info) Description 09/30/2024 10:20 AM EDT Office Visit Dermatology [facility] [address] [facility] [place] [address] Neyda Mccann PA-C [address] [facility] [place] [address] 10/01/2024 9:10 AM EDT Laboratory Laboratory, [facility] [address] [facility] [phone] Shabana Ramos [facility] [address] [place] [address] 10/01/2024 10:30 AM EDT Office Visit Cardiology, [facility] [address] [facility] [place] [address] Donte Chau DO 132 [facility] [place] [address] 10/04/2024 11:00 AM EDT Office Visit General Internal Medicine [facility] [address] [place] [address] Nahid Rodgers MD [address] [facility] [place] [address] 12/08/2024 10:15 AM EDT Office Visit Orthopaedics [place] Cazares [address] [place] [address] Marcus Collins MD [address] [place] [address] 01/28/2025 9:30 AM EDT Office Visit Cardiology, [facility] [address] [place] [address] Stacey Talbot CRNP [address] [facility] [place] [address] 02/14/2025 12:40 PM EDT Telemedicine Endocrinology [address] [place] [address] Henna Malhotra MD [address] [place] [id number] 02/28/2025 2:30 PM EDT Nurse Only [facility] [address] [place] [address] Park, Nurse Annual Wellness [address] [place] [address] 03/09/2025 3:00 PM EDT Office Visit Rheumatology [facility] [address] [facility] [place] [phone] Julia Conway CRNP [address] [facility] [place] [address] 05/11/2025 11:00 AM EDT Office Visit Urology, [facility] [address] [place] [address] Buddy Okeefe MD [address] [facility] [place] [address] 06/14/2025 2:40 PM EST Office Visit General Internal Medicine [facility] [address] [place] [address] [place] [address] Nahid Rodgers MD [address] [facility] [place] [address] Scheduled Procedures Name Priority Associated Diagnoses Date/Ti [...] D LEVEL ONCE IN A LIFETIME-USE SMARTSET# [id number] Completed 09/16/2024, 02/18/2024, 09/18/2023, Additional history exists [...] this encounter Medical Devices Implanted Type Area Java Application Developer Device Identifier Shelf Expiration Date Model / Serial / Lot Phenix Mini Quick 2/0 [id number] - [id number] Implanted:Qty: 2 on 12/21/2018 by [place] Collins [place] [facility] [place]: Hand JNJ : DEPUY MITEK SURG PROD 08/13/2021 [id number] / / [id number] documented as of this encounter Advance Directives Documents on File Type Date Recorded Patient Brass Pourer Expl anation Power of Instruction Assistant Principal 02/20/2021 POWER OF A TTORNEY * Full [...] the patient have Health Care Power of Instruction Assistant Principal? Yes, not currently available Care Teams Fur Comber Relationship Specialty Start Date End Date Nahid Rodgers MD [address] [facility] [place] [address] PCP - General Internal Medicine 01/27/24 documented as of this encounter
--- OUTSIDE RECORDS SUMMARY | 2024-10-08 22:27 | External Medical Summary | Summary of Care ---
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, no new concerns Encounter Details Date Type Department Care Team (Late st Contact Info) Description 09/30/2024 10:20 AM EDT Office Visit Dermatology [facility] [address] [facility] [place] [address] Neyda Mccann PA-C [address] [facility] [place] [address] Actinic keratosis* Allergies Active Allergy Reactions Criticality Noted Date Comments Acetylcysteine High 02/14/2022 Other reaction(s): caused chest tightness, PVB and AFib Alendronate Sodium 12/13/2008 Other reaction(s): GI Upset Moxifloxacin Hcl In Nacl 04/01/2016 Hallucinations Black [place] Pollen Allergy Skin Test Rash High 10/16/2018 [...] Can tolerate Crestor Sulfa Antibiotics Nausea/vomiting 01/22/2015 [place] High 06/22/2024 Other Reaction(s): Rash WITH black [...] differently: 5 mgOralEVERY OTHER DAY, Reported on 09/30/2024 Rosuvastatin Calcium 5 MG Oral Tablet (Crestor)Indications:Pu [...] sciatica 11/23/2018 Severe tricuspid 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 09/24/2018 terminal clerk current use of anticoagulant therapy 0 09/24/2018 [...] Date Author No 02/24/2023 12:57 PM EDT Ramsay, Celine J, RN documented in this encounter Progress Notes * Nahid Cao MD - 09/30/2024 8:46 PM EDT I have reviewed the charting notes and orders and associated images and agree with the assessment and plan of Neyda Mccann PA-C I was available for consultation during and after the visit Nahid Cao MD 09/30/2024 8:46 PM * Neyda Mccann PA-C - 09/30/2024 10:25 AM EDT SUBJECTIVE: cryo L suprabrow s/p biopsy showing AK Date Last Appointment: 09/21/2024 (in office), Visit date not found (telemedicine) OBJECTIVE: L suprabrow- scar with pink keratotic papule ASSESSMENT/PLAN: Ak. Cryosurgery explained to the patient, consent obtained, patient, site and procedure verified, and then cryotherapy was performed with Liquid Nitrogen via cryo spray unit to 1 lesions. Location noted in physical exam. Post op course explained. Follow-up: fall, skin check 09/30/2024 10:26 AM Neyda Mccann PA-C documented in this encounter Nursing Notes * Radhika Yee CMA - 09/30/2024 9:47 AM EDT Chief Complaint Patient presents with Follow Up Pt presents for cryo of AK on left eyebrow, no new concerns documented in this encounter Plan of Treatment Upcoming Encounters Date Type Department Care Team (Late st Contact Info) Description 10/01/2024 9:10 AM EDT Laboratory Laboratory, [facility] [address] [place] [phone] [facility] [address] [facility] [place] [address] 10/01/2024 10:30 AM EDT Office Visit Cardiology, [facility] [address] [place] [address] Donte Chau, [address] [place] [address] 10/04/2024 11:00 AM EDT Office Visit General Internal Medicine [facility] [address] [place] [address] Nahid Rodgers MD [address] [facility] [place] [address] 12/08/2024 10:15 AM EDT [facility] [address] [place] [address] Marcus Collins MD [address] [place] [address] 01/28/2025 9:30 AM EDT Office Visit Cardiology, [facility] [address] [place] [address] Stacey Talbot CRNP [address] [place], [place] [id number] 02/14/2025 12:40 PM EDT Telemedicine Endocrinology [address] [place] [phone] Henna Malhotra MD [address] [place] [address] 02/28/2025 2:30 PM EDT Nurse Only Ancillary [facility] [address] [place], [place] [address] Davina, Nurse Annual Wellness [facility] [address] [facility] [place] [address] 03/09/2025 3:00 PM EDT Office Visit Rheumatology [facility] [address] [place] [phone] Julia Conway CRNP [facility] [facility] [place] [address] 05/11/2025 11:00 AM EDT Office Visit Urology, [facility] [address] [place] [phone] Buddy Okeefe MD [address] [place] [address] 06/14/2025 2:40 PM EST Office Visit General Internal Medicine [facility] [address] [facility] [place] [address] Nahid Rodgers MD [address] [facility] [place], [place] [address] Scheduled Procedures Name Priority Associated Diagnoses Date/Ti [...] D LEVEL ONCE IN A LIFETIME-USE SMARTSET# [id number] Completed 09/16/2024, 02/18/2024, 09/18/2023, Additional history exists [...] this encounter Medical Devices Implanted Type Area Meter Shop Superintendent Device Identifier Shelf Expiration Date Model / Serial / Lot Hemet Mini Quick 2/0 [id number] - [id number] Implanted:Qty: 2 on 12/21/2018 by Marcus Collins MD at OR [facility] [place], [place] Left: Hand JNJ : DEPUY MITEK SURG PROD 08/13/2021 [id number] / / [id number] documented as of this encounter Procedures Procedure Name Priority Date/Time Associated Diagnosis Comments DERM IMAGE (SITE) Routine 09/30/2024 Actinic keratosis documented in this encounter Results * DERM IMAGE (SITE) (09/30/2024) 09/30/2024 us Neyda Mccann PA-C DIGITAL PHOTOGRAPHY Fin al Result documented in this encounter Visit Diagnoses Diagnosis Actinic keratosis- Primary documented in this encounter Additional Health Concerns Infection Onset Date Last Indicated Resolved Time Respiratory Rule-Out 09/30/2024 09/30/2024 025 5:47 PM EDT documented as of this encounter Advance Directives Documents on File Type Date Recorded Patient Lead Manufacturing Engineer Expl anation Power of Tool Technician 02/20/2021 POWER OF A TTORNEY * Full [...] the patient have Health Care Power of Tool Technician? Yes, not currently available Care Teams Blind Stitch Machine Operator Relationship Specialty Start Date End Date Nahid Rodgers MD [address] [place] [address] PCP - General Internal Medicine 01/27/24 documented as of this encounter
--- OUTSIDE RECORDS SUMMARY | 2024-10-08 22:27 | External Medical Summary | Summary of Care ---
Author Name Unknown Organization [facility] Address [address] [address] Phone [phone] Care Team Providers Care Paper Bag Press Operator Name Role Phone Nahid Rodgers MD Primary Care Provider + Reason for Visit * Reason Onset Date Comments Hospital Follow-Up Hospital Follow-Up 09/30/2024 Encounter Details Date Type Department Care Team (Latest Contact Info) Description 09/30/2024 9:00 AM EDT Office Visit General Internal Medicine [facility] [address] [facility] [place] [address] Carlee Vela MD [address] [place] [address] Bronchiectasis without complication (HCC)*; HTN, goal below 140/90; Chronic atrial fibrillation (HCC); Postoperative hypothyroidism; Severe tricuspid 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; Hyperparathyroidism, primary (HCC); Restrictive lung disease; Pancreas cyst; Upper respiratory tract infection, unspecified type; Hospital discharge follow-up; Diarrhea, unspecified type; S/P AV brayan ablation Allergies Active Allergy Reactions Criticality Noted Date Comments Acetylcysteine High 02/14/2022 Other reaction(s): caused chest tightness, PVB and AFib Alendronate Sodium 12/13/2008 Other reaction(s): GI Upset Moxifloxacin Hcl In Nacl 04/01/2016 Hallucinations Black [place] Pollen Allergy Skin Test Rash High 10/16/2018 [...] Can tolerate Crestor Sulfa Antibiotics Nausea/vomiting 01/22/2015 [place] High 06/22/2024 Other Reaction(s): Rash WITH black walnut Warfarin 02/14/2022 Other reaction(s): "NUMBERS WENT TO HIGH" documented as of this encounter (statuses as of 10/02/2024) Medications Ventolin HFA 108 (90 Base) MCG/ACT [...] as of this encounter (statuses as of 10/02/2024) Active Problems Problem Noted Date Diagnosed Date Prediabetes 03/26/2024 Hiatal hernia 10/10/2022 Renal calculus, left 10/10/2022 Restrictive lung disease 07/18/2022 Status post left knee replacement 10/24/2021 Pancreas cyst 09/05/2021 HTN, goal below 140/90 08/03/2021 Chronic diastolic congestive heart failure 10/20 Senile osteoporosis 07/28/2019 SWAIN (dyspnea on exertion) 07/28/2019 Hyperparathyroidism, primary 11/23/2018 Low back pain without sciatica 11/23/2018 Severe tricuspid 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 09/24/2018 shelter current use of anticoagulant therapy 0 09/24/2018 History of compression fracture of spine 018 Major depressive disorder wi th single episode, in full remission 04/06/2018 Chronic atrial fibrillation 01/12/2018 S/P AV brayan ablation 12/13/2016 Cardiac pacemaker in situ 12/13/2016 Postoperative hypothyroidism 03/04/2016 Mixed hyperlipidemia Bronchiectasis documented as of this encounter (statuses as of 10/02/2024) Resolved Problems Problem Noted Date Diagnosed Date [...] as of this encounter (statuses as of 10/02/2024) Immunizations Name Administration Dates Next Due COVID-19 [...] Sign Reading Time Taken Comments Blood Pressure 126/82 09/30/2024 9:06 AM EDT Pulse 87 09/30/2024 9:06 AM EDT Temperature 36.6 C (97.9 F) 09/30/2024 9:06 AM ED T Respiratory Rate 16 09/30/2024 9:06 AM EDT Oxygen Saturation 95% 09/30/2024 9:06 AM EDT Inhaled Oxygen Concentration - - Weight 90.6 kg (199 lb 12.8 oz) 09/30/2024 9:06 AM EDT Height 170.2 cm (5' 7.01") 09/30/2024 9:06 AM ED T Body Mass Index 31.29 09/30/2024 9:06 AM EDT documented in this [...] Celine Xavier RN documented in this encounter Patient Instructions * Patient Instructions* Carlee Vela MD - 09/30/2024 9:30 AM EDT Coping with Your Diagnosis of a Chronic Health Condition If you have a chronic health condition, you have a problem that may not go away over time. Heart disease, asthma, arthritis, and diabetes are just a few of the chronic conditions that exist. Right now, these conditions have no known cure. But you can take an active role in managing your health. Coping with Your Diagnosis If you've just learned about your health condition, you may be angry, depressed, or afraid. Or you might feel relieved just to know what's wrong. Even if you've known about your health problem for a while, adjusting to it can be hard. But learning about your condition can help you cope. Look for books at your local library. If you have access to a computer, check the Internet. Or contact a group that focuses on your specific problem. Accepting Change Change is hard for most people. Yet right now you may be facing many changes. What you eat or the way you work may change. Your moods, and even your symptoms, might vary from day to day. Although it isn't easy, learning to accept change can help you feel more in control. Taking Control Feeling you have control can make living with your condition easier. Discuss treatment options withyour health care provider. The more you know, the more active you can be in your care. Moving Forward You may wonder whether you will be able to do the things you've always done. That depends on your age, the condition you have, and your goals. To make the most of each day, try to build caring relationships, be active, and eat right. Also, do your best to keep a sense of humor. [address] [address]. All rights reserved. This information is not intended as a substitute for professional medical care. Always follow your healthcare professional's instructions. Taking an Active Role in Your Medicines Take the time to learn about your medicine. For instance, why are you taking it? What does it do? Work with your doctor or other health care providers to get the answers you need. Talk to your pharmacist about how to take each medicine, and ask for a fact sheet on each one. Ask Questions About Your Medicine What is the name of the medicine? Why do I need to take it? When should I take it? How should I take it: with water? with food? on an empty stomach? How much do I take? What do I do if I miss a dose? What side effects could it cause and which ones should I call the doctor about? Are there any foods or medicines I should avoid while taking this medicine? Keeping track of your medications? Name of medicine: Taken for: Dose: Time(s) to take it: Take an Active Role Fill all your prescriptions at the same pharmacy. This keeps your medicine history in one place. Talk to the pharmacist. Make sure you understand how to take each medicine. Ask for a fact sheet about each one. Tell your doctor and pharmacist about all the prescription and elbo-qpt-bqllfkt medicines you take.This includes vitamins and herbal remedies. Tell your doctor and pharmacist if you have any medical conditions or allergies to any medicine or food, or if you are or . Keep a list of all your medicines. Use the sample to the right as a guide for the type of information needed. [facility], [address] [place] [address]. All rights reserved. This information is not intended as a substitute for professional medical care. Always follow your healthcare professional's instructions. documented in this encounter Progress Notes * Carlee Vela MD - 09/30/2024 9:10 AM EDT Images from the original note were not included. Subjective Catracho Penn is a 83 year old female that presents for Hospital Follow-Up History of Present Illness The patient, with a history of bronchiectasis and COPD, presents with a new cough and diarrhea. Thecough started two days ago, waking the patient up with a 'weird sound.' Since then, she has had a hoarse voice and has been coughing up clear to white phlegm. She has been using a saline nebulizer twice daily and Ventolin before the nebulizer since the cough started. She also reports chest tightness and intermittent shortness of breath. The diarrhea started last week, stopped for several days, and then restarted yesterday. The patientwas recently hospitalized overnight for diarrhea and weakness, which was thought to be due to Augmentin prescribed for a sinus issue. She also had a reaction to Zosyn given in the ER for suspected pneumonia, which was later ruled out by a CT scan. Augmentin was stopped in hospital. Hospital record reviewed and discussed with pt The patient also reports feeling very cold and having chills, but denies fever, body aches, runny nose, or sneezing. 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 HEENT: Mild oral erythema, tongue thrush. No sinus tenderness. NECK: No cervical adenopathy, no thyromegaly. CHEST: equal BS , no crackles , Bilateral prolonged expiratory phase with end expiratory wheezing. CARDIOVASCULAR: Regular S1, S2, murmur present. EXTREMITIES: No edema. Results RADIOLOGY Chest x-ray: Findings suggestive of possible pneumonia (09/27/2024) Chest CT: Chronic changes consistent with bronchitis, no new pneumonia (09/27/2024) Assessment and Plan Assessment & Plan Viral respiratory infection and flare up of bronchiectasis/copd New viral respiratory infection with cough, hoarseness, chest tightness, and chills. Differential includes bronchiectasis or COPD exacerbation. Xopenex preferred due to atrial fibrillation. -resp panel done - Continue cough medicine. - Continue Anura. - Add Xopenex nebulizer. - Add prednisone taper in lower dose. -if resp panel negative and symptoms changes edgar color pg phlem and fever - can add antibiotic Atrial fibrillation Atrial fibrillation well-controlled. Xopenex preferred to minimize tachycardia. - Continue medication as directed. Diarrhea Diarrhea likely due to Augmentin. Symptoms resolved but recurred. Elevated blood pressure possibly due to anxiety or medication non-compliance. - Hold Augmentin. Bronchiectasis without complication (HCC) (Primary) - Levalbuterol HCl 1.25 MG/3ML Inhalation Nebulization Solution; Inhale 3 mL via nebulizer every 8 hours as needed for Wheezing. - predniSONE 10 MG Oral Tablet (Deltasone); Take 4 tabs for 2 days, 3 tabs for 2 days, 2 tabs for 2days 1 tab for 2 days - DISCH MED RECON CUR MED LIS - DISCH MED RECON CUR MED LIS HTN, goal below 140/90 Chronic atrial fibrillation (HCC) Postoperative hypothyroidism Severe tricuspid 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 Hyperparathyroidism, primary (HCC) Restrictive lung disease Pancreas cyst Upper respiratory tract infection, unspecified type - RESPIRATORY PATHOGEN PANEL, PCR; Future; Expected date: 09/30/2024 - DISCH MED RECON CUR MED LIS - DISCH MED RECON CUR MED LIS - RESPIRATORY PATHOGEN PANEL, PCR Hospital discharge follow-up - DISCH MED RECON CUR MED LIS - DISCH MED RECON CUR MED LIS Diarrhea, unspecified type - DISCH MED RECON CUR MED LIS - DISCH MED RECON CUR MED LIS S/P AV brayan ablation Wrap-Up PLAN: Continue present medication(s): Begin medication(s): prednisone taper - lower dose and xopenex neb Discontinue medication(s): augmentin Patient education: need to use nebulizer/inhaler every 6 hours an breathing exercise by using IS and flutter valve Follow up as needed. I spent a total of 40-54 minutes (exact time 42 mins) minutes on the date of service in preparation, delivery, and documentation of the care provided to [place] High excluding any time spent in performance of separately billed services. Carlee Vela MD Text in this note was generated using an ambient documentation service. I discussed the use of a device to record and summarize our discussion today. All persons present during the encounter consented to its use. documented in this encounter Nursing Notes * Noemi Castorena CMA - 09/30/2024 8:57 AM EDT Patient presents for hospital follow up. She was seen at [facility] due to pneumonia. She states she is still having wet cough and some wheezing. She completed almost all of her augmentin that she has been prescribed 2 weeks ago for sinusitis. States that she began having diarrhea so she stopped taking it. This was before her hospital visit. She is currently using her maintenance and rescue albuterol inhalers.Chest x-ray and CT scans were done. documented in this encounter Plan of Treatment Upcoming Encounters Date Type Department Care Team (Late st Contact Info) Description 10/04/2024 11:00 AM EDT Office Visit General Internal Medicine [facility] [address] [place] [address] [address] Nahid Rodgers MD [address] [place] [address] 12/08/2024 10:15 AM EDT Office Visit Orthopaedics Paulina Cazares [address] [facility] [place] [address] Marcus Collins MD [address] [place] [address] 01/28/2025 9:30 AM EDT Office Visit Cardiology, [facility] [address] [place] [address] Stacey Talbot CRNP [address] [place] [address] 02/14/2025 12:40 PM EDT Telemedicine Endocrinology [address] [place] [place] [address] Henna Malhotra MD [address] [place], [place] [id number] 02/28/2025 2:30 PM EDT Nurse Only Ancillary [facility] [address] [place] [address] [place], Nurse Annual Wellness [facility] [address] [facility] [place], [place] [address] 03/09/2025 3:00 PM EDT Office Visit Rheumatology [facility] [address] [place] [phone] Julia Conway CRNP [address] [facility] [place] [address] 04/21/2025 12:20 PM EDT Office Visit Dermatology [facility] [address] [place] [address] Neyda Mccann PA-C [address] [place] [address] 05/11/2025 11:00 AM EDT Office Visit Urology, [facility] [address] [place] [address] Buddy Okeefe MD [address] [place] [address] 06/14/2025 2:40 PM EST Office Visit General Internal Medicine [facility] [address] [facility] [place] [address] Nahid Rodgers MD [address] [facility] [place] [address] Scheduled Procedures Name Priority Associated Diagnoses Date/Ti [...] D LEVEL ONCE IN A LIFETIME-USE SMARTSET# 64944 Completed 09/16/2024, 02/18/2024, 09/18/2023, Additional history exists [...] this encounter Medical Devices Implanted Type Area Time Broker Device Identifier Shelf Expiration Date Model / Serial / Lot [place] Mini Quick 2/0 [id number] - [id number] Implanted:Qty: 2 on 12/21/2018 by Marcus Collins MD at [place] [facility] Left: Hand JNJ : DEPUY MITEK SURG PROD 08/13/2021 [id number] / / [id number] documented as of this encounter Procedures Procedure Name Priority Date/Time Associated Diagnosis Comments RESPIRATORY PATHOGEN PANEL, PCR Routine 09/30/2024 9:54 AM EDT Upper respiratory tract infection, unspecified type documented in this encounter Results * RESPIRATORY PATHOGEN PANEL, PCR (09/30/2024 9:54 AM EDT) Adenovirus Negative Negative 09/30/2024 5:47 PM EDT LAB[facility] Coronavirus 229E Negative Negative 10/01/19 5:47 PM EDT LAB[facility] Coronavirus HKU1 Negative Negative 10/01/19 25 5:47 PM EDT [facility] Coronavirus NL63 Negative Negative 10/01/19 25 5:47 PM EDT [facility] Coronavirus OC43 Negative Negative 10/01/19 25 5:47 PM EDT [facility] Coronavirus SARS-CoV-2 Negative Negative 09/30/2024 5:47 PM EDT [facility] Human Metapneumovirus Negative Negative 09/30/2024 5:47 PM EDT [facility] Rhinovirus/Enterovi cinthia Negative Negative 09/30/2024 5:47 PM EDT [facility] Influenza A Negative Negative 09/30/2024 5:47 PM EDT [facility] Influenza B Negative Negative 09/30/2024 5:47 PM EDT [facility] Parainfluenza Virus 1 Negative Negative 09/30/2024 5:47 PM EDT LAB[facility]ORY [facility] Parainfluenza Virus 2 Negative Negative 09/30/2024 5:47 PM EDT [facility] Parainfluenza Virus 3 Negative Negative 09/30/2024 5:47 PM EDT [facility] Parainfluenza Virus 4 Negative Negative 09/30/2024 5:47 PM EDT LAB[facility]ORY [facility] Respiratory Syncytial Virus Negative Negative 09/30/2024 5:47 PM EDT [facility]ORY [facility] Bordetella pertussis Negative Negative 09/30/2024 5:47 PM EDT [facility]ORY [facility] Chlamydia pneumoniae Negative Negative 09/30/2024 5:47 PM EDT LAB[facility] Mycoplasma pneumoniae Negative Negative 09/30/2024 5:47 PM EDT [facility]ORY [facility] Bordetella parapertussis Negative Negative 09/30/2024 5:47 PM EDT [facility]ORY [facility] Comment: The primers that detect Rhinovirus may cross react with some Enterorviruses. The validation of bronchial specimens, tracheal aspirates, and throats for this assay was developed and performance characteristics determined by [facility]. The validation of alternate specimen types has not been cleared or approved by the U.S. Food and Drug Administration (FDA). It has been determined that such clearance or approval is not necessary. Upper Respiratory Nasopharyngeal swab / Unknown Non-blood Collection / Unknown 09/30/2024 9:54 AM EDT 09/30/2024 9:56 AM EDT Carlee Vela MD LAB MICRO - GENERAL ORDERABLES Final Result [facility]ATORY [facility] [address] [place] [address] documented in this encounter Visit Diagnoses Diagnosis Bronchiectasis without complication (HCC)- Primary Bronchiectasis without acute exacerbation HTN, goal below 140/90 Unspecified essential hypertension Chronic atrial fibrillation (HCC) Atrial fibrillation Postoperative hypothyroidism Postsurgical hypothyroidism Severe tricuspid 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 Diseases of tricuspid valve Hyperparathyroidism, primary (HCC) Primary hyperparathyroidism Restrictive lung disease Other diseases of lung, not elsewhere classified Pancreas cyst Cyst and pseudocyst of pancreas Upper respiratory tract infection, unspecified type Hospital discharge follow-up Other follow-up examination Diarrhea, unspecified type S/P AV brayan ablation Other postprocedural status documented in this encounter Advance Directives Documents on File Type Date Recorded 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 Yes, not currently available Care Teams Paper Bag Press Operator Relationship Specialty Start Date End Date Nahid Rodgers MD [address] [facility] [place] [address] PCP - General Internal Medicine 01/27/24 documented as of this encounter
--- OUTSIDE RECORDS SUMMARY | 2024-10-08 22:27 | External Medical Summary ---
Author Name Unknown Address Unknown Organization [id number]:LABORATORY [facility] - [address] [place] [address] Laboratory Report Ordering Provider Test Date Status SEBASTIAN ROSALES 09/30/2024 09:54:00 Final Observation Date Value Abnormality Reference (Units ) Status Adenovirus DNA [Presence] in Nasopharynx by CHOCO with non-probe detection 09/30/2024 09:54:00 Negative Negative Final Human coronavirus 229E RNA [Presence] in Nasopharynx by CHOCO with non-probe detection 09/30/2024 09:54:00 Negative Negative Final Human coronavirus HKU1 RNA [Presence] in Nasopharynx by CHOCO with non-probe detection 09/30/2024 09:54:00 Negative Negative Final Human coronavirus NL63 RNA [Presence] in Nasopharynx by CHOCO with non-probe detection 09/30/2024 09:54:00 Negative Negative Final Human coronavirus OC43 RNA [Presence] in Nasopharynx by CHOCO with non-probe detection 09/30/2024 09:54:00 Negative Negative Final SARS-CoV-2 (COVID-19) RNA [Presence] in Nasopharynx by CHOCO with non-probe detection 09/30/2024 09:54:00 Negative Negative Final Human metapneumovirus RNA [Presence] in Nasopharynx by CHOCO with non-probe detection 09/30/2024 09:54:00 Negative Negative Final Rhinovirus+Enterovirus RNA [Presence] in Nasopharynx by CHOCO with non-probe detection 09/30/2024 09:54:00 Negative Negative Final Influenza virus A RNA [Presence] in Nasopharynx by CHOCO with non-probe detection 09/30/2024 09:54:00 Negative Negative Final Influenza virus B RNA [Presence] in Nasopharynx by CHOCO with non-probe detection 09/30/2024 09:54:00 Negative Negative Final Parainfluenza virus 1 RNA [Presence] in Nasopharynx by CHOCO with non-probe detection 09/30/2024 09:54:00 Negative Negative Final Parainfluenza virus 2 RNA [Presence] in Nasopharynx by CHOCO with non-probe detection 09/30/2024 09:54:00 Negative Negative Final Parainfluenza virus 3 RNA [Presence] in Nasopharynx by CHOCO with non-probe detection 09/30/2024 09:54:00 Negative Negative Final Parainfluenza virus 4 RNA [Presence] in Nasopharynx by CHOCO with non-probe detection 09/30/2024 09:54:00 Negative Negative Final Respiratory syncytial virus RNA [Presence] in Nasopharynx by CHOCO with non-probe detection 09/30/2024 09:54:00 Negative Negative Final Bordetella pertussis.pertussis toxin promoter region [Presence] in Nasopharynx by CHOCO with non-probe detection 09/30/2024 09:54:00 Negative Negative Final Chlamydophila pneumoniae DNA [Presence] in Nasopharynx by CHOCO with non-probe detection 09/30/2024 09:54:00 Negative Negative Final Mycoplasma pneumoniae DNA [Presence] in Nasopharynx by CHOCO with non-probe detection 09/30/2024 09:54:00 Negative Negative Final Bordetella parapertussis [id number] DNA [Presence] in Nasopharynx by CHOCO with non-probe detection 09/30/2024 09:54:00 Negative Negative Final The primers that detect Rhin ovirus may cross react with some Enterorviruses. The validation of bronchial specimens, tracheal aspirates, and throats for this assay was developed and performance characteristics determined by [facility]. The validation of alternate specimen types has not been cleared or approved by the U.S. Food and Drug Administration (FDA). It has been determined that such clearance or approval is not necessary. [facility] LABORATORY [facility] - [address] [facility] [address]
--- OUTSIDE RECORDS SUMMARY | 2024-10-08 22:27 | External Medical Summary | Summary of Care ---
Author Name Unknown Organization [facility] Address [address] [place] [address] Phone [phone] Care Team Providers Care Window Assembler Name Role Phone Nahid Rodgers MD Primary Care Provider + Reason for Visit * Reason Comments Follow Up Pt presents for cryo of AK on left eyebrow, no new concerns Encounter Details Date Type Department Care Team (Late st Contact Info) Description 09/30/2024 10:20 AM EDT Office Visit Dermatology [facility] [address] [facility] [place] [address] Neyda Mccann PA-C [address] [facility] [place] [address] Actinic keratosis* Allergies Active Allergy Reactions Criticality Noted Date Comments Acetylcysteine High 02/14/2022 Other reaction(s): caused chest tightness, PVB and AFib Alendronate Sodium 12/13/2008 Other reaction(s): GI Upset Moxifloxacin Hcl In Nacl 04/01/2016 Hallucinations Black [place] Pollen Allergy Skin Test Rash High 10/16/2018 [...] Can tolerate Crestor Sulfa Antibiotics Nausea/vomiting 01/22/2015 [place] High 06/22/2024 Other Reaction(s): Rash WITH black walnut Warfarin 02/14/2022 Other reaction(s): "NUMBERS WENT TO HIGH" documented as of this encounter (statuses as of 09/30/2024) Medications Ventolin HFA 108 (90 Base) MCG/ACT [...] as of this encounter (statuses as of 09/30/2024) Active Problems Problem Noted Date Diagnosed Date Prediabetes 03/26/2024 Hiatal hernia 10/10/2022 Renal calculus, left 10/10/2022 Restrictive lung disease 07/18/2022 Status post left knee replacement 10/24/2021 Pancreas cyst 09/05/2021 HTN, goal below 140/90 08/03/2021 Chronic diastolic congestive heart failure 10/20 Senile osteoporosis 07/28/2019 SWAIN (dyspnea on exertion) 07/28/2019 Hyperparathyroidism, primary 11/23/2018 Low back pain without sciatica 11/23/2018 Severe tricuspid 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 0 09/24/2018 History of compression fracture of spine 018 Major depressive disorder wi th single episode, in full remission 04/06/2018 Chronic atrial fibrillation 01/12/2018 S/P AV brayan ablation 12/13/2016 Cardiac pacemaker in situ 12/13/2016 Postoperative hypothyroidism 03/04/2016 Mixed hyperlipidemia Bronchiectasis documented as of this encounter (statuses as of 09/30/2024) Resolved Problems Problem Noted Date Diagnosed Date [...] as of this encounter (statuses as of 09/30/2024) Immunizations Name Administration Dates Next Due COVID-19 [...] documented in this encounter Progress Notes * Bialas, Neyda Rebecca, PA-C - 09/30/2024 10:25 AM EDT SUBJECTIVE: [...] Description 10/01/2024 9:10 AM EDT Laboratory Laboratory, [facility] [address] [place] [id number] Shabana Ramos [address] [facility] [place] [address] 10/01/2024 10:30 AM EDT Office Visit Cardiology, [facility] [address] [place] [address] Donte Chau DO [address] [place] [address] 10/04/2024 11:00 AM EDT Office Visit General Internal Medicine [facility] [address] [place] [address] Nahid Rodgers MD [address] [place], [place] [address] 12/08/2024 10:15 AM EDT Office Visit Orthopaedics [place] [address] [place] [phone] Marcus Collins MD [address] [place] [address] 01/28/2025 9:30 AM EDT Office Visit Cardiology, [facility] [address] [place] [address] Stacey Talbot CRNP [address] [place] [address] 02/14/2025 12:40 PM EDT Telemedicine Endocrinology [address] [place] [address] Henna Malhotra MD [address] [place] [address] 02/28/2025 2:30 PM EDT Nurse Only Ancillary [facility] [address] [place] [address] [place], Nurse Annual Wellness [facility] [address] [facility] [place], [place] [address] 03/09/2025 3:00 PM EDT Office Visit Rheumatology [facility] [address] [place] [address] Julia Conway CRNP [address] [facility] [place], [place] [address] 05/11/2025 11:00 AM EDT Office Visit Urology, [facility] [address] [place] [address] Buddy Okeefe MD [address] [place] [address] 06/14/2025 2:40 PM EST Office Visit General Internal Medicine [facility] [address] [facility] [place] [address] Nahid Rodgers MD [address] [facility] [place] [address] Scheduled Procedures Name Priority Associated Diagnoses Date/Ti [...] D LEVEL ONCE IN A LIFETIME-USE SMARTSET# [id number] Completed 09/16/2024, 02/18/2024, 09/18/2023, Additional history exists [...] this encounter Medical Devices Implanted Type Area Line Up Examiner Device Identifier Shelf Expiration Date Model / Serial / Lot [place] Mini Quick 2/0 [id number] - [id number] Implanted:Qty: 2 on 12/21/2018 by Marcus Collins MD [place] [facility] [place]: Hand JNJ : DEPUY MITEK SURG PROD 08/13/2021 [id number] / / [id number] documented as of this encounter Visit Diagnoses Diagnosis Actinic keratosis- Primary documented in this encounter Additional Health Concerns Infection Onset Date Last Indicated Resolved Time Respiratory Rule-Out 09/30/2024 09/30/2024 documented as of this encounter Advance Directives Documents on File Type Date Recorded Patient Campus Manager Expl anation Power of Email Engineer 02/20/2021 POWER OF A TTORNEY * Full [...] the patient have Health Care Power of Email Engineer? Yes, not currently available Care Teams Window Assembler Relationship Specialty Start Date End Date Nahid Rodgers MD [address] [facility] [place] [address] PCP - General Internal Medicine 01/27/24 documented as of this encounter
== END 2024-09-27 14:33 | disposition home or self-care (01) | DRG 394 ==
LOC: ED 02:13 → EDINP 04:59 → OBSVTOIN 04:59 → INTOOBSV 04:59 → 2N 05:08